=== PATIENT | male | born 1945 | race Caucasian/White ===

== ENCOUNTER 2020-12-02 11:15 | Outpatient (REF) | payer MEDICARE, SELFPAY | END 2020-12-02 11:16 | disposition home or self-care (01) | LOC: HO.LAB 11:15 | PROVIDERS: PCP Internal Medicine; Visit Provider Urology | DX: N39.0 Urinary tract infection, site not specified (principal); E29.1 Testicular hypofunction | CPT/HCPCS: 87086 ==

== ENCOUNTER 2020-12-11 13:48 | Outpatient (REF) | payer MEDICARE, SELFPAY ==
[2020-12-11 14:39] LABS: Appearance Urine HAZY; Color Urine YELLOW; Glucose Urine UA NEG (NEG); Leukocyte Esterase Urine 2+ (NEG); Nitrite Urine NEG (NEG); Specific Gravity - Urine 1.015 (1.005-1.025); Urine Blood TRACE (NEG); Urine Ketones NEG (NEG); Urine Protein NEG (NEG-TRACE)
[2020-12-11 14:47] LABS: Bacteria Urine TRACE /LPF; Squamous Epithelial Cell Urine 1+ /LPF
== END 2020-12-11 13:49 | disposition home or self-care (01) ==
LOC: HO.LAB 13:48
PROVIDERS: PCP Internal Medicine; Visit Provider Urology
DX: N39.0 Urinary tract infection, site not specified (principal); Z13.9 Encounter for screening, unspecified
CPT/HCPCS: 81001; 87086; 87088; 87186

== ENCOUNTER 2021-01-01 16:01 | Outpatient (REF) | payer MEDICARE, SELFPAY ==
[2021-01-01 16:22] LABS: Glucose Urine UA NEG (NEG); Leukocyte Esterase Urine NEG (NEG); Nitrite Urine NEG (NEG); PH 5.5 (5.0-8.0); Urine Blood NEG (NEG); Urine Ketones NEG (NEG); Urine Protein NEG (NEG-TRACE)
[2021-01-01 16:26] LABS: Appearance Urine CLEAR; Color Urine YELLOW
[2021-01-01 16:32] LABS: Bacteria Urine TRACE /LPF; RBC Urine 0 /HPF (0); Squamous Epithelial Cell Urine 1+ /LPF; WBC Urine 0 /HPF (0-4)
== END 2021-01-01 16:02 | disposition home or self-care (01) ==
LOC: HO.LAB 16:01
PROVIDERS: PCP Internal Medicine; Visit Provider Urology
DX: N39.0 Urinary tract infection, site not specified (principal)
CPT/HCPCS: 81001

== ENCOUNTER 2021-01-02 14:23 | Outpatient (REF) | payer MEDICARE, SELFPAY ==
[2021-01-02 15:18] LABS: Hematocrit 40.3 % (42-52); Mean Corpuscular HGB Conc 32.3 g/dl (31.0-36.0); Mean Corpuscular Hemoglobin 28.8 pg (27.0-33.0); Mean Corpuscular Volume 89.4 fL (80-98); Mean Platelet Volume 10.1 fL (9.4-12.4); Platelet Count 183 X10*3/uL (160-400); Red Blood Count 4.51 X10*6/uL (4.60-5.80); White Blood Count 7.2 X10*3/uL (4.8-10.8)
[2021-01-02 16:07] LABS: Prostate Specific Antigen 0.31 ng/mL (<0.05-4.0)
[2021-01-07 15:57] LABS: Testosterone, Total 168 ng/dL (250-1100)
== END 2021-01-02 14:24 | disposition home or self-care (01) ==
LOC: HO.LAB 14:23
PROVIDERS: PCP Internal Medicine; Visit Provider Urology
DX: E29.1 Testicular hypofunction (principal)
CPT/HCPCS: 36415; 84153; 84403; 85027

== ENCOUNTER → 2021-02-27 15:02 | Outpatient (BNVA) | payer MEDICARE, SELFPAY | PROVIDERS: PCP Internal Medicine; Visit Provider Urology | DX: E29.1 Testicular hypofunction (principal); N41.9 Inflammatory disease of prostate, unspecified; N39.0 Urinary tract infection, site not specified | CPT/HCPCS: 99212 ==

== ENCOUNTER → 2021-05-19 10:25 | Outpatient (BNVA) | payer MEDICARE, SELFPAY | PROVIDERS: Visit Provider Orthopaedic Surgery | DX: M75.41 Impingement syndrome of right shoulder (principal) | CPT/HCPCS: 20610; 99212; J1040 ==

== ENCOUNTER 2021-08-06 08:05 | Outpatient (REF) | payer MEDICARE, SELFPAY ==
--- NOTE | ~2021-08-06 | XR_ITS ---
EXAMINATION: XR PELVIS CLINICAL INFORMATION: Left hip pain. COMPARISON: Left hip radiographs dated 12/19/2018. TECHNIQUE: AP view of the pelvis. FINDINGS: Mild right and left hip joint space narrowing with small marginal osteophytes, slightly progressed. No acute fracture or dislocation. No osseous erosion. Degenerative disc disease redemonstrated within the lower lumbar spine. XR/XR pelvis 1-2V IMPRESSION: Mild right and left hip osteoarthritis, slightly progressed.
[2021-08-06 12:55] LABS: Hematocrit 41.8 % (42-52); Hemoglobin 13.5 g/dl (14.0-18.0); Mean Corpuscular HGB Conc 32.3 g/dl (31.0-36.0); Mean Corpuscular Hemoglobin 28.7 pg (27.0-33.0); Mean Corpuscular Volume 88.9 fL (80-98); Mean Platelet Volume 9.9 fL (9.4-12.4); Platelet Count 197 X10*3/uL (160-400); Red Cell Distribution Width 13.1 % (11.0-16.0); White Blood Count 7.1 X10*3/uL (4.8-10.8)
[2021-08-06 14:37] LABS: Prostate Specific Antigen 0.43 ng/mL (<0.05-4.0)
[2021-08-17 11:12] LABS: Testosterone, Total 264 ng/dL (250-1100)
== END 2021-08-06 08:06 | disposition home or self-care (01) ==
LOC: HO.HOSX 08:05
PROVIDERS: Absent Provider Urology; PCP Internal Medicine; Visit Provider Orthopaedic Surgery
DX: Z12.5 Encounter for screening for malignant neoplasm of prostate (principal); M70.62 Trochanteric bursitis, left hip; E29.1 Testicular hypofunction
CPT/HCPCS: 20610; 36415; 72170; 84153; 84403; 85027; 99212; J1100

== ENCOUNTER 2021-08-27 12:09 | Outpatient (REF) | payer MEDICARE, SELFPAY ==
[2021-08-27 12:35] LABS: MANUAL DIFF FLAG NO
[2021-08-27 13:02] LABS: Basophils Percent Auto 0.7 % (0-2); Eosinophils Absolute Auto 0.3 X10*3/uL (0.0-0.4); Eosinophils Percent Auto 4.7 % (0-4); Hemoglobin 13.1 g/dl (14.0-18.0); Imm Gran Abs Auto 0.03 X10*3/uL (0.00-0.03); Imm Gran Pct Auto 0.5 % (0.0-0.4); Lymphocytes Absolute Auto 1.1 X10*3/uL (1.2-4.9); Lymphocytes Percent Auto 18.5 % (20-40); Mean Corpuscular HGB Conc 33.6 g/dl (31.0-36.0); Mean Corpuscular Hemoglobin 29.1 pg (27.0-33.0); Mean Corpuscular Volume 86.7 fL (80-98); Mean Platelet Volume 9.9 fL (9.4-12.4); Monocytes Absolute Auto 0.5 X10*3/uL (0.1-1.2); Monocytes Percent Auto 9.3 % (2-11); Neutrophils Absolute Auto 3.8 X10*3/uL (2.0-8.3); Neutrophils Percent Auto 66.3 % (45-73); Platelet Count 182 X10*3/uL (160-400); White Blood Count 5.7 X10*3/uL (4.8-10.8)
[2021-08-27 13:54] LABS: Prostate Specific Antigen 0.29 ng/mL (<0.05-4.0)
[2021-09-01 08:51] LABS: Testosterone, Total 244 ng/dL (250-1100)
== END 2021-08-27 12:10 | disposition home or self-care (01) ==
LOC: HO.LAB 12:09
PROVIDERS: PCP Internal Medicine; Visit Provider Urology
DX: E29.1 Testicular hypofunction (principal)
CPT/HCPCS: 36415; 84153; 84403; 85025

== ENCOUNTER → 2021-09-01 14:23 | Outpatient (BNVA) | payer MEDICARE, SELFPAY | PROVIDERS: PCP Internal Medicine; Visit Provider Urology | DX: E29.1 Testicular hypofunction (principal); N41.9 Inflammatory disease of prostate, unspecified; N40.1 Benign prostatic hyperplasia with lower urinary tract symptoms; N13.8 Other obstructive and reflux uropathy; N39.0 Urinary tract infection, site not specified | CPT/HCPCS: 99212 ==

== ENCOUNTER 2021-09-09 10:56 | Outpatient (REF) | payer MEDICARE, SELFPAY ==
[2021-09-09 11:48] LABS: Appearance Urine HAZY; Color Urine YELLOW; Glucose Urine UA NEG (NEG); Leukocyte Esterase Urine 2+ (NEG); Nitrite Urine NEG (NEG); Urine Blood TRACE (NEG); Urine Ketones NEG (NEG); Urine Protein NEG (NEG-TRACE)
[2021-09-09 11:56] LABS: WBC Urine TNTC /HPF (0-4)
== END 2021-09-09 10:57 | disposition home or self-care (01) ==
LOC: HO.LAB 10:56
PROVIDERS: PCP Internal Medicine; Visit Provider Urology
DX: N39.0 Urinary tract infection, site not specified (principal)
CPT/HCPCS: 81001; 87086

== ENCOUNTER → 2021-10-02 10:43 | Outpatient (BNVA) | payer MEDICARE, SELFPAY | PROVIDERS: PCP Internal Medicine; Visit Provider Urology | DX: N40.1 Benign prostatic hyperplasia with lower urinary tract symptoms (principal); N13.8 Other obstructive and reflux uropathy; R39.15 Urgency of urination; Z87.898 Personal history of other specified conditions | CPT/HCPCS: 52000; 99212 ==

== ENCOUNTER → 2021-11-10 11:46 | Outpatient (BNVA) | payer MEDICARE, SELFPAY | PROVIDERS: PCP Internal Medicine; Visit Provider Urology | DX: N40.1 Benign prostatic hyperplasia with lower urinary tract symptoms (principal); N13.8 Other obstructive and reflux uropathy; N41.9 Inflammatory disease of prostate, unspecified; R39.15 Urgency of urination | CPT/HCPCS: Q3014 ==

== ENCOUNTER → 2021-12-31 08:52 | Outpatient (BNVA) | payer MEDICARE, SELFPAY | PROVIDERS: PCP Internal Medicine; Visit Provider Orthopaedic Surgery | DX: M70.62 Trochanteric bursitis, left hip (principal) | CPT/HCPCS: 99212 ==

== ENCOUNTER 2022-01-13 13:41 | Outpatient (REF) | payer MEDICARE, SELFPAY ==
[2022-01-13 15:02] LABS: Appearance Urine HAZY; Color Urine YELLOW; Glucose Urine UA NEG (NEG); Leukocyte Esterase Urine TRACE (NEG); Nitrite Urine NEG (NEG); PH 5.5 (5.0-8.0); Specific Gravity - Urine >= 1.030 (1.005-1.025); Urine Blood NEG (NEG); Urine Ketones 5 MG/DL (NEG); Urine Protein TRACE MG/DL (NEG-TRACE)
[2022-01-13 15:16] LABS: Mucus Urine 3+ /LPF; RBC Urine 0-2 /HPF (0); Squamous Epithelial Cell Urine 2+ /LPF
== END 2022-01-13 13:42 | disposition home or self-care (01) ==
LOC: HO.LAB 13:41
PROVIDERS: PCP Internal Medicine; Visit Provider Urology
DX: N39.0 Urinary tract infection, site not specified (principal)
CPT/HCPCS: 81001; 87086

== ENCOUNTER → 2022-01-18 09:35 | Outpatient (BNVA) | payer MEDICARE, SELFPAY | PROVIDERS: PCP Internal Medicine; Visit Provider Urology | DX: Z13.89 Encounter for screening for other disorder (principal) ==

== ENCOUNTER → 2022-01-20 10:32 | Outpatient (BNVA) | payer MEDICARE, SELFPAY | PROVIDERS: PCP Internal Medicine; Visit Provider Urology | DX: Z13.89 Encounter for screening for other disorder (principal) ==

== ENCOUNTER → 2022-02-03 13:18 | Outpatient (BNVA) | payer MEDICARE, SELFPAY | PROVIDERS: PCP Internal Medicine; Visit Provider Urology | DX: E29.1 Testicular hypofunction (principal); N40.1 Benign prostatic hyperplasia with lower urinary tract symptoms; N13.8 Other obstructive and reflux uropathy; N39.0 Urinary tract infection, site not specified | CPT/HCPCS: Q3014 ==

== ENCOUNTER 2022-02-12 07:00 | Outpatient (RCR) | payer MEDICARE, SELFPAY ==
--- NOTE | 2022-02-05 12:50 | MHC.PT.EP ---
[facility] [place] Office [place] Office [place] Office [address] Pankaj Bird [address] [phone] F: [phone] F: [phone] F: [phone] F: [phone] Physical Therapy Plan of Care Date of Evaluation: Date of Surgery: N/A Diagnosis: trochanteric bursitis Assessment: pt's signs and symptoms consistent w/ trochanteric bursitis. pt presents to physical therapy with pain, decreased range of motion, decreased strength, impaired functional mobility, impaired postural awareness, and gait deviations. pt is a good candidate for skilled PT due to age, potential remediation of impairments, typical disease/condition progression and prognosis, comorbidities, and motivation. pt would benefit from tailored strengthening and stretching exercise program, functional training, gait training, postural re-training, neuromuscular re-education, modalities as needed for pain, equipment safety demonstration. Frequency and Duration: The patient will be seen 2x/wk for 6 wks Short Term Goals: pt will be I w/ HEP to promote self-management of condition. pt will demo proper sitting posture w/ lumbar roll to promote neutral spine in sitting. Plastic Frame Inserter Goals: pt will report a statistically significant improvement in self-reported outcome measure, LEFI, to promote return to PLOF. pt will ascend/descend 10 stairs w/ reciprocal pattern using LRAD to promote access to primary living spaces. Treatment Plan: Modalities to reduce pain, spasms and effusion. Manual therapy to restore motion and function. Therapeutic exercise to improve strength and flexibility. Neuromuscular re-education for posture and balance. Therapeutic activities to return to functional activities of daily living. Electronically signed by: Evonne Gallegos PT, DPT Please sign and return to therapist. Thank you for your referral.
--- NOTE | 2022-03-17 13:40 | MHC.PT.DC ---
[facility] [place] Office [place] Office [place] Office [address] 140 [facility] [phone] F: [phone] F: [phone] F: [phone] F: [phone] Physical Therapy Discharge Report Diagnosis: trochanteric bursitis Date of Surgery: N/A Date of Evaluation: 02/05/22 Date of Discharge: 03/17/22 Treatments to Date: 3 Cancellations to Date: 9 No Shows to Date: 1 Discharge Status: Recommend MD Follow-up Discharge Summary: The patient called our office to let us know he was hospitalized but would like to return to physical therapy. It has been approximately one month and the patient has not called to reschedule any further visits. He is discharged from this physical therapy plan of care at this time. He needs clearance from a physician prior to returning to physical therapy. Electronically signed by: Evonne Gallegos PT, DPT Please sign and return to therapist. Thank you for your referral.
== END 2022-03-17 13:40 | disposition home or self-care (01) ==
LOC: HO.PT 07:00
PROVIDERS: Visit Provider Orthopaedic Surgery
DX: M70.62 Trochanteric bursitis, left hip (principal); R26.9 Unspecified abnormalities of gait and mobility
CPT/HCPCS: 97035; 97110; 97140; 97162

== ENCOUNTER 2022-07-29 10:44 | Outpatient (REF) | payer MEDICARE, SELFPAY ==
[2022-07-29 13:43] LABS: Prostate Specific Antigen 0.14 ng/mL (<0.05-4.0)
[2022-08-05 09:32] LABS: Testosterone, Total 216 ng/dL (250-1100)
== END 2022-07-29 10:45 | disposition home or self-care (01) ==
LOC: HO.LAB 10:44
PROVIDERS: PCP Internal Medicine; Visit Provider Urology
DX: Z12.5 Encounter for screening for malignant neoplasm of prostate (principal); E29.1 Testicular hypofunction
CPT/HCPCS: 36415; 84153; 84403

== ENCOUNTER → 2022-08-10 11:24 | Outpatient (BNVA) | payer MEDICARE, SELFPAY | PROVIDERS: PCP Internal Medicine; Visit Provider Urology | DX: N40.1 Benign prostatic hyperplasia with lower urinary tract symptoms (principal); N13.8 Other obstructive and reflux uropathy; N39.0 Urinary tract infection, site not specified; E29.1 Testicular hypofunction | CPT/HCPCS: Q3014 ==

== ENCOUNTER → 2022-10-11 14:29 | Outpatient (BNVA) | payer MEDICARE, SELFPAY | PROVIDERS: PCP Internal Medicine; Visit Provider Orthopaedic Surgery | DX: M70.62 Trochanteric bursitis, left hip (principal); M47.816 Spondylosis without myelopathy or radiculopathy, lumbar region | CPT/HCPCS: 99212 ==

== ENCOUNTER → 2022-11-29 13:52 | Outpatient (BNVA) | payer MEDICARE, SELFPAY | PROVIDERS: PCP Internal Medicine; Visit Provider Anesthesiology | DX: M70.62 Trochanteric bursitis, left hip (principal); M47.816 Spondylosis without myelopathy or radiculopathy, lumbar region; M96.1 Postlaminectomy syndrome, not elsewhere classified; G89.4 Chronic pain syndrome | CPT/HCPCS: 99202 ==

== ENCOUNTER 2022-12-23 10:21 | Outpatient (REF) | payer MEDICARE, SELFPAY ==
--- NOTE | ~2022-12-23 | MR_ITS ---
EXAMINATION: MR LUMBAR SPINE WITHOUT AND WITH CONTRAST CLINICAL INFORMATION: Postlaminectomy syndrome. COMPARISON: Lumbar spine MRI from 03/04/2020. TECHNIQUE: MRI of the lumbar spine was obtained using routine sequences without and following the administration of 10 mL of Gadavist intravenous contrast. FINDINGS: Moderate right convex curvature of the lumbar spine. Mild degenerative retrolistheses of L3 on L4 and L4 on L5. Advanced degenerative disc disease at L4-L5. Moderate degenerative disc disease from L1-L4. Mild degenerative disc disease at L5-S1. Associated mixed Modic type discogenic endplate changes including minimal Modic type I discogenic edema at L2-L3 and L5-S1. No additional suspicious marrow edema. Small Schmorl's nodes at T11-T12, L1-L2, and L2-L3. Otherwise, the vertebral body heights are well-maintained. The conus medullaris terminates at the level of T12-L1. The distal spinal cord is normal in appearance. No abnormal contrast enhancement. Changes of right-sided L5-S1 hemilaminotomy. No additional significant abnormalities of the paraspinal musculature. There is a 1.3 cm T2 hyperintense cysts in the upper pole the right kidney (no follow-up imaging recommended based on current guidelines at the time of examination). Otherwise, limited evaluation of the intra-abdominal structures without significant abnormalities. The abdominal aorta is of normal contour and caliber. AXIAL SPINAL LEVELS: T12-L1: Shallow diffuse disc bulge with superimposed small right subarticular disc protrusion. There is moderate bilateral facet joint arthropathy. There is no neural foraminal stenosis. There is no spinal canal stenosis. L1-L2: Mild diffuse disc bulge with superimposed right foraminal disc protrusion. There is moderate bilateral facet joint arthropathy. There is mild right and no left neural foraminal stenosis. There is stenosis of the right subarticular zone with no overt spinal canal stenosis centrally. L2-L3: Moderate diffuse disc bulge with posterior osseous ridging. There is severe bilateral facet joint arthropathy. There is moderate right and mild left neural foraminal stenosis. There is stenosis of the right worse than left subarticular zones with moderate spinal canal stenosis centrally. L3-L4: Moderate diffuse disc bulge with posterior osseous ridging and superimposed left subarticular disc extrusion with inferior migration. There is severe bilateral facet joint arthropathy. There is severe left and moderate right neural foraminal stenosis. There is severe spinal canal stenosis. L4-L5: Moderate diffuse disc bulge with posterior osseous ridging. There is severe bilateral facet joint arthropathy. There is moderate bilateral neural foraminal stenosis. There is stenosis of the subarticular zones with moderate spinal canal stenosis centrally. L5-S1: Mild diffuse disc bulge. There is severe left and moderate right facet joint arthropathy. There is moderate to severe bilateral neural foraminal stenosis. Posterior decompression. There is narrowing of the subarticular zones with no overt spinal canal stenosis centrally. 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 Most notably, there is severe spinal canal stenosis at L3-L4. Moderate spinal canal stenoses at L2-L3 and L4-L5. Narrowing/stenoses of the subarticular zones from L1-S1. Moderate to severe neural foraminal stenoses from L2-S1. Overall, degenerative changes appear similar to exam from 2020.
== END 2022-12-23 10:22 | disposition home or self-care (01) ==
LOC: HO.MRI 10:21
PROVIDERS: PCP Internal Medicine; Visit Provider Anesthesiology
DX: M96.1 Postlaminectomy syndrome, not elsewhere classified (principal); G89.4 Chronic pain syndrome; M47.816 Spondylosis without myelopathy or radiculopathy, lumbar region
CPT/HCPCS: 72158; A9585

== ENCOUNTER → 2022-12-29 14:32 | Outpatient (BNVA) | payer MEDICARE, SELFPAY | PROVIDERS: PCP Internal Medicine; Visit Provider Anesthesiology | DX: M70.62 Trochanteric bursitis, left hip (principal); M47.816 Spondylosis without myelopathy or radiculopathy, lumbar region; M96.1 Postlaminectomy syndrome, not elsewhere classified; G89.4 Chronic pain syndrome | CPT/HCPCS: 99212 ==

== ENCOUNTER 2023-01-25 13:36 | Outpatient (REF) | payer MEDICARE, SELFPAY ==
[2023-01-25 15:56] LABS: Prostate Specific Antigen 0.14 ng/mL (<0.05-4.0)
[2023-02-03 10:19] LABS: Testosterone, Total 398 ng/dL (250-1100)
== END 2023-01-25 13:37 | disposition home or self-care (01) ==
LOC: HO.LAB 13:36
PROVIDERS: PCP Internal Medicine; Visit Provider Urology
DX: N40.1 Benign prostatic hyperplasia with lower urinary tract symptoms (principal); E29.1 Testicular hypofunction; N13.8 Other obstructive and reflux uropathy; Z12.5 Encounter for screening for malignant neoplasm of prostate
CPT/HCPCS: 36415; 84153; 84403

== ENCOUNTER → 2023-01-31 14:28 | Outpatient (BNVA) | payer MEDICARE, SELFPAY | PROVIDERS: PCP Internal Medicine; Visit Provider Anesthesiology | DX: G89.4 Chronic pain syndrome (principal); M96.1 Postlaminectomy syndrome, not elsewhere classified; M47.816 Spondylosis without myelopathy or radiculopathy, lumbar region; M70.62 Trochanteric bursitis, left hip | CPT/HCPCS: 99212 ==

== ENCOUNTER → 2023-02-08 13:52 | Outpatient (BNVA) | payer MEDICARE, SELFPAY | PROVIDERS: PCP Internal Medicine; Visit Provider Urology | DX: N40.1 Benign prostatic hyperplasia with lower urinary tract symptoms (principal); R39.15 Urgency of urination; N13.8 Other obstructive and reflux uropathy; E29.1 Testicular hypofunction | CPT/HCPCS: 51798; 99212 ==

== ENCOUNTER 2023-03-16 14:21 | Outpatient (REF) | payer MEDICARE, SELFPAY ==
--- NOTE | ~2023-03-16 | XR_ITS ---
EXAMINATION: XR LUMBOSACRAL SPINE CLINICAL INFORMATION: Secondary scoliosis. COMPARISON: Portions of the MRI lumbar spine dated 12/23/2022. TECHNIQUE: AP and lateral views of the lumbar spine and lateral view of the lumbosacral junction. FINDINGS: There is bony demineralization. There is a moderate lumbar levoscoliosis. At L1-L2, there is mild rightward disc space narrowing. At L4-L5, there is moderately severe disc space narrowing, most pronounced leftward. No acute fracture or spondylolisthesis is seen. There is a large Schmorl's node of the L2 lower endplate. There is multi-level lumbar facet arthropathy. There are aortoiliac atherosclerotic calcifications. XR/XR lumbar spine 2-3V IMPRESSION: There is multi-level lumbar degenerative disc disease, spondylosis and facet arthropathy. Degenerative disc disease is most pronounced at L4-L5, where it is moderately severe.
== END 2023-03-16 14:22 | disposition home or self-care (01) ==
LOC: HO.HOSX 14:21
PROVIDERS: PCP Internal Medicine; Visit Provider Neurological Surgery
DX: M47.816 Spondylosis without myelopathy or radiculopathy, lumbar region (principal); M41.50 Other secondary scoliosis, site unspecified
CPT/HCPCS: 72100; 99202

== ENCOUNTER → 2023-04-13 10:25 | Outpatient (BNVA) | payer MEDICARE, SELFPAY | PROVIDERS: PCP Internal Medicine; Visit Provider Neurological Surgery | DX: M41.50 Other secondary scoliosis, site unspecified (principal) | CPT/HCPCS: 99211 ==

== ENCOUNTER 2023-06-02 08:49 | Day surgery (SDC) | payer MEDICARE, SELFPAY ==
--- NOTE | 2023-05-19 | ECG_ITS ---
Test Reason : preop Blood Pressure : / mmHG Vent. Rate : 075 BPM Atrial Rate : 075 BPM P-R Int : 142 ms QRS Dur : 112 ms QT Int : 398 ms P-R-T Axes : 061 049 064 degrees QTc Int : 444 ms Sinus rhythm with Premature atrial complexes Otherwise normal ECG When compared with ECG of 10-JAN-2010 17:31, Premature atrial complexes are now Present Nonspecific T wave abnormality now evident in Lateral leads Referred By: Chica Galdamez Electronically Signed By:Booker Sanchez
[2023-05-19 12:11] VITALS: BP 139/68; PULSE 82; RESP 20; O2SAT 97; BMI 35.0
--- NOTE | 2023-05-19 12:24 | HO.ANESPROP2 ---
HPI - Anesthesia Eval Consult details Narrative: 78yo M for L3-4,L4-5 Jose D Lumbar Lami/Disc/decom Multi CAD follows Dr Valencia. MICHAEL - no CPAP Medically optimized by [facility] preop clinic Stable at PCP visit re: asthma, dm 03/2023 No recent illness No CP/SOB with >4 mets. Limited by back pain, but continues to walk miles, split firewood. [facility] Active Problems Active Problems: All Active Problems (Updated 05/19/23 @ 12:00 by Marilyn Dietrich RN) Prostatitis (Acute) Chronic UTI (urinary tract infection) (Acute) Hypogonadism in male (Acute) Rotator cuff impingement syndrome of right shoulder (Acute) Greater trochanteric bursitis of left hip (Acute) BPH w urinary obs/LUTS (Acute) Urinary urgency (Acute) Gait disorder (Acute) Spondylosis without myelopathy or radiculopathy, lumbar region (Acute) Chronic pain syndrome (Acute) Postlaminectomy syndrome (Acute) Spinal stenosis (Acute) Scoliosis due to degenerative disease of spine in adult patient (Acute) Past Medical History Medical History (Updated 05/19/23 @ 12:00 by Marilyn Dietrich RN) Acute cystitis with hematuria Asthma Benign prostatic hyperplasia with lower urinary tract symptoms CAD (coronary artery disease) Chronic prostatitis Colitis Diabetes Diverticulosis Gross hematuria Hiatal hernia HTN (hypertension) Hypogonadism in male Peripheral neuropathy Poor urinary stream Primary osteoarthritis, left shoulder Rotator cuff impingement syndrome of left shoulder Sleep apnea Family History Family History Father No problems noted. Mother No problems noted. Family history of problems with anesthesia: No Surgical History Surgical History (Updated 05/19/23 @ 12:41 by Marilyn Dietrich RN) H/O colonoscopy History of back surgery History of esophagogastroduodenoscopy (EGD) History of total knee replacement (TKR) Hx of arthroscopy of right knee Hx of shoulder surgery Hx of transurethral resection of prostate History of Problems with Anesthesia: No Social History Social History Are you a primary rental boats caretaker to a significant other at home: No Do you presently have visiting nurse or other home services: No Patient Tobacco Use Status: Former Tobacco user Quit Date: 1989 Tobacco use type: Cigarette Meds Allergies Allergy/AdvReac Type Severity Reaction Status Date / Time morphine Allergy Severe agitation/severe Verified 05/19/23 12:06 skin symptoms oxycodone Allergy Severe agitation/severe Verified 05/19/23 12:06 skin symptoms Home Medications Medication Instructions Recorded Confirmed Last Taken Type albuterol sulfate 90 mcg/actuation 2 puff PO Q6H 02/27/21 05/18/23 06/02/23 History aerosol inhaler blood sugar diagnostic #10 ea 02/27/21 03/16/23 Unknown History montelukast 10 mg tablet 10 mg PO DAILY 02/27/21 05/18/23 Unknown History omeprazole 20 mg capsule,delayed 20 mg PO DAILY 02/27/21 05/18/23 06/02/23 History release diltiazem HCl 300 mg 300 mg PO DAILY 09/01/21 05/18/23 06/02/23 History capsule,extended release 24 hr (Cartia XT) rosuvastatin 5 mg tablet 5 mg PO DAILY 02/03/22 05/18/23 Unknown History dapagliflozin propanediol 5 mg 5 mg PO DAILY 12/29/22 05/19/23 Unknown History tablet (Farxiga) aspirin 81 mg tablet,delayed 81 mg PO DAILY 05/18/23 05/18/23 05/31/23 History release (Ecotrin Low Strength) cetirizine 10 mg tablet 10 mg PO DAILY 05/18/23 05/18/23 Unknown History doxazosin 4 mg tablet 4 mg PO DAILY 05/18/23 05/18/23 06/02/23 History finasteride 5 mg tablet 5 mg PO DAILY 05/18/23 05/18/23 06/02/23 History fluticasone propionate 50 2 spray intranasal QAM 05/18/23 05/18/23 Unknown History mcg/actuation nasal spray,suspension melatonin 10 mg tablet 10 mg PO BEDTIME 05/18/23 05/18/23 Unknown History semaglutide 0.25 mg or 0.5 mg (2 2.5 mg subcut QWEEK 05/18/23 05/19/23 Unknown History mg/3 mL) subcutaneous pen injector (Ozempic) fluticasone fur. 200 mcg-umeclid 1 ea inhalation DAILY PRN acute 05/19/23 05/19/23 Unknown History 62.5 mcg-vilant 25 mcg wheezing inhalat.powder (Trelegy Ellipta) hydrochlorothiazide 25 mg tablet 25 mg PO DAILY 05/23/23 05/23/23 Unknown History Exam Exam Date and Time: May 19, 2023 1224 Height,Weight and Vital Signs: Height 5 ft 9 in Weight 107.501 kg Last Vital Signs Pulse 82 05/19/23 12:11 Resp 20 05/19/23 12:11 BP 139/68 05/19/23 12:11 Pulse Ox 97 05/19/23 12:11 O2 Del Method Room Air 05/19/23 12:11 Pertinent Lab Results Pertinent Lab Results: Lab Results 05/19/23 05/19/23 Range/Units Unknown Unknown WBC 8.7 (4.8-10.8) X10*3/uL RBC 5.35 (4.60-5.80) X10*6/uL Hgb 14.8 (14.0-18.0) g/dl Hct 46.1 (42.0-52.0) % MCV 86.2 (80.0-98.0) fL MCH 27.7 (27.0-33.0) pg MCHC 32.1 (31.0-36.0) g/dl RDW 13.5 (11.0-16.0) % Plt Count 208 (160-400) X10*3/uL MPV 10.4 (9.4-12.4) fL Immature Gran % (Auto) 0.6 H (0.0-0.4) % Neut % (Auto) 67.3 (45-73) % Lymph % (Auto) 20.2 (20-40) % [place] % (Auto) 8.3 (2-11) % Eos % (Auto) 2.9 (0-4) % Baso % (Auto) 0.7 (0-2) % Lymph # (Auto) 1.8 (1.2-4.9) X10*3/uL [place] # (Auto) 0.7 (0.1-1.2) X10*3/uL Eos # (Auto) 0.3 (0.0-0.4) X10*3/uL Baso # (Auto) 0.1 (0.0-0.2) X10*3/uL Abs Immat Gran (auto) 0.05 H (0.00-0.03) X10*3/uL Absolute Neuts (auto) 5.9 (2.0-8.3) x10*3/uL Absolute Nucleated RBC 0.000 (0.0-0.012) X10*3/uL Nucleated RBC % (auto) 0.0 (0.0-0.2) /100WBC Sodium 141 (135-145) mmol/L Potassium 4.2 (3.3-5.1) mmol/L Chloride 105 (96-108) mmol/L Carbon Dioxide 28 (22-29) mmol/L Anion Gap 12 (12-20) BUN 27 H (9-16) mg/dL Creatinine 0.99 (0.5-1.4) mg/dL Estim Creat Clear Calc 76.6 Estimated GFR > 60 Random Glucose 133 H (60-115) mg/dL Calcium 10.0 (8.4-10.2) mg/dL Narrative Narrative: EKG 04/2023 Vent. Rate : 075 BPM ? ? Atrial Rate : 075 BPM ?? P-R Int : 142 ms? QRS Dur : 112 ms ? ? QT Int : 398 ms ? ? ? P-R-T Axes : 061 049 064 degrees ?? QTc Int : 444 ms ? Sinus rhythm with Premature atrial complexes Otherwise normal ECG When compared with ECG of 10-JAN-2010 17:31, Premature atrial complexes are now Present Nonspecific T wave abnormality now evident in Lateral leads Airway Mallampati Class: II TM Dist: >3cm Neck ROM: Full Denture: Upper and Lower Heart: RRR Lungs: CTAB Assessment and Plan Assessment Anesthesia Assessment: Anesthesia Plan Discussed and PAT Visit Final Anesthetic Review Family History of Problems with Anesthesia: No History of Problems with Anesthesia: No
[2023-05-19 13:47] LABS: MANUAL DIFF FLAG NO
[2023-05-19 14:08] LABS: Basophils Absolute Auto 0.1 X10*3/uL (0.0-0.2); Basophils Percent Auto 0.7 % (0-2); Eosinophils Absolute Auto 0.3 X10*3/uL (0.0-0.4); Eosinophils Percent Auto 2.9 % (0-4); Hematocrit 46.1 % (42.0-52.0); Hemoglobin 14.8 g/dl (14.0-18.0); Imm Gran Abs Auto 0.05 X10*3/uL (0.00-0.03); Imm Gran Pct Auto 0.6 % (0.0-0.4); Lymphocytes Absolute Auto 1.8 X10*3/uL (1.2-4.9); Lymphocytes Percent Auto 20.2 % (20-40); Mean Corpuscular HGB Conc 32.1 g/dl (31.0-36.0); Mean Corpuscular Hemoglobin 27.7 pg (27.0-33.0); Mean Corpuscular Volume 86.2 fL (80.0-98.0); Mean Platelet Volume 10.4 fL (9.4-12.4); Monocytes Absolute Auto 0.7 X10*3/uL (0.1-1.2); Monocytes Percent Auto 8.3 % (2-11); Neutrophils Absolute Auto 5.9 x10*3/uL (2.0-8.3); Neutrophils Percent Auto 67.3 % (45-73); Platelet Count 208 X10*3/uL (160-400); Red Blood Count 5.35 X10*6/uL (4.60-5.80); Red Cell Distribution Width 13.5 % (11.0-16.0); White Blood Count 8.7 X10*3/uL (4.8-10.8)
[2023-05-19 14:31] LABS: Anion Gap 12 (12-20); Blood Urea Nitrogen 27 mg/dL (9-16); Carbon Dioxide 28 mmol/L (22-29); Chloride 105 mmol/L (96-108); Creatinine Clr Calc Pharmacy 76.6; Estimated Glomerular Filt Rate > 60; Glucose Random 133 mg/dL (60-115); Potassium 4.2 mmol/L (3.3-5.1); Sodium 141 mmol/L (135-145)
[2023-06-02] VITALS (7 sets, daily range): BP systolic 125–140; BP diastolic 51–62; PULSE 55–70; RESP 15–21; TEMP 36.3–36.6; O2SAT 94–98; BMI 34.3
--- NOTE | ~2023-06-02 | FL_ITS ---
EXAMINATION: XR FLUOROSCOPY WITH IMAGES CLINICAL INFORMATION: L3-L4, L4-L5 luis daniel-lumbar decompression, left. COMPARISON: None available. TECHNIQUE: Fluoroscopy Supervised By: Dr. Delgadillo. Fluoroscopy Time: 0.0 min. Cumulative Dose: 4.87 mGy. DAP: 0.947 Gycm2. Images: 1. FINDINGS: Single lateral view of the lower lumbar spine. Instrument projects over the posterior elements at the L3-L4 disc space level. FL/FL guidance in OR IMPRESSION: Fluoroscopy guidance for lumbar spine surgery.
--- NOTE | 2023-06-02 07:30 | MHC.SHP ---
Pre-Procedural Eval Section A Date of Service: 06/02/23 The patient is an INPATIENT: No The History & Physical has been completed within 30 days and I have reviewed it.: No Section B Chief Complaint: Other secondary scoliosis, site unspecified Allergies: Allergies Allergy/AdvReac Type Severity Reaction Status Date / Time morphine Allergy Severe agitation/severe Verified 05/19/23 12:06 skin symptoms oxycodone Allergy Severe agitation/severe Verified 05/19/23 12:06 skin symptoms Review of Systems Sugical H&P ROS: Negative: Constitution, Cardiovascular, Respiratory, Neurological, Psychiatric, Hem-Onc, Allergic/Immunologic, Gastrointestinal, Genitourinary, Musculoskeletal, Integumentary, Endocrine and Eyes/Ears/Nose/Throat Exam Surgical H&P Exam: Not Evaluated: HEENT, Not Evaluated: Heart, Not Evaluated: Lungs, Not Evaluated: Extremities, Not Evaluated: Abdomen, Not Evaluated: Skin and Not Evaluated: Neurological Plan Diagnosis/Plan: Unchanged I have reviewed the history and physical and performed a pertinent physical examination on my patient. No changes have occurred unless specified. left L3-4 and left L4-5 decompression Time Spent With Patient Time: Total time managing care of this patient today _10___ minutes.
[2023-06-02 09:56] LABS: Glucose, Whole Blood 125 mg/dL (60-115)
[2023-06-02] MEDS: methocarbamoL 750 MG TABLET PO (10:17)
[2023-06-02] MEDS: Gabapentin 300 MG CAPSULE PO (10:17)
[2023-06-02] MEDS: Lactated Ringers 1,000 ML 100 ML IVCONT (10:18)
--- NOTE | 2023-06-02 10:18 | HO.ANESPROP2 ---
[facility] Active Problems Active Problems: All Active Problems (Updated 05/19/23 @ 12:00 by Marilyn Dietrich RN) Prostatitis (Acute) Chronic UTI (urinary tract infection) (Acute) Hypogonadism in male (Acute) Rotator cuff impingement syndrome of right shoulder (Acute) Greater trochanteric bursitis of left hip (Acute) BPH w urinary obs/LUTS (Acute) Urinary urgency (Acute) Gait disorder (Acute) Spondylosis without myelopathy or radiculopathy, lumbar region (Acute) Chronic pain syndrome (Acute) Postlaminectomy syndrome (Acute) Spinal stenosis (Acute) Scoliosis due to degenerative disease of spine in adult patient (Acute) Past Medical History Medical History (Updated 05/19/23 @ 12:00 by Marilyn Dietrich RN) Acute cystitis with hematuria Asthma Benign prostatic hyperplasia with lower urinary tract symptoms CAD (coronary artery disease) Chronic prostatitis Colitis Diabetes Diverticulosis Gross hematuria Hiatal hernia HTN (hypertension) Hypogonadism in male Peripheral neuropathy Poor urinary stream Primary osteoarthritis, left shoulder Rotator cuff impingement syndrome of left shoulder Sleep apnea Family History Family History Father No problems noted. Mother No problems noted. Family history of problems with anesthesia: No Surgical History Surgical History (Updated 05/19/23 @ 12:41 by Marilyn Dietrich RN) H/O colonoscopy History of back surgery History of esophagogastroduodenoscopy (EGD) History of total knee replacement (TKR) Hx of arthroscopy of right knee Hx of shoulder surgery Hx of transurethral resection of prostate History of Problems with Anesthesia: No Social History Social History Are you a primary progressive care manager to a significant other at home: No Do you presently have visiting nurse or other home services: No Patient Tobacco Use Status: Former Tobacco user Quit Date: 1989 Tobacco use type: Cigarette Use of substances other than those prescribed or required for medical reasons: No Have you been hit, kicked, punched, or otherwise hurt by someone within the past year? If so, by whom?: No Are you DNR?: No Advance Directives Information Provided: Yes (as above noted-advised to bring copy day of surgery) Advance Directives on File: No Recently lost weight without trying: No Eating poorly because of decreased appetite: No Nutrition Risks: Surgical patient >75years Poor oral hygiene: No (upper/lower full denture-lower held in w/posts, does not use Fixodent) Meds Allergies Allergy/AdvReac Type Severity Reaction Status Date / Time morphine Allergy Severe agitation/severe Verified 05/19/23 12:06 skin symptoms oxycodone Allergy Severe agitation/severe Verified 05/19/23 12:06 skin symptoms Active Medications: Current Medications Lactated Ringer's (Lr) 1,000 mls @ 100 mls/hr IVCONT .Q10H NARDA Last Admin: 06/02/23 10:18 Dose: 100 mls/hr Home Medications Medication Instructions Recorded Confirmed Last Taken Type albuterol sulfate 90 mcg/actuation 2 puff PO Q6H 02/27/21 05/18/23 06/02/23 History aerosol inhaler blood sugar diagnostic #10 ea 02/27/21 03/16/23 Unknown History montelukast 10 mg tablet 10 mg PO DAILY 02/27/21 05/18/23 Unknown History omeprazole 20 mg capsule,delayed 20 mg PO DAILY 02/27/21 05/18/23 06/02/23 History release diltiazem HCl 300 mg 300 mg PO DAILY 09/01/21 05/18/23 06/02/23 History capsule,extended release 24 hr (Cartia XT) rosuvastatin 5 mg tablet 5 mg PO DAILY 02/03/22 05/18/23 Unknown History dapagliflozin propanediol 5 mg 5 mg PO DAILY 12/29/22 05/19/23 Unknown History tablet (Farxiga) aspirin 81 mg tablet,delayed 81 mg PO DAILY 05/18/23 05/18/23 05/31/23 History release (Ecotrin Low Strength) cetirizine 10 mg tablet 10 mg PO DAILY 05/18/23 05/18/23 Unknown History doxazosin 4 mg tablet 4 mg PO DAILY 05/18/23 05/18/23 06/02/23 History finasteride 5 mg tablet 5 mg PO DAILY 05/18/23 05/18/23 06/02/23 History fluticasone propionate 50 2 spray intranasal QAM 05/18/23 05/18/23 Unknown History mcg/actuation nasal spray,suspension melatonin 10 mg tablet 10 mg PO BEDTIME 05/18/23 05/18/23 Unknown History semaglutide 0.25 mg or 0.5 mg (2 2.5 mg subcut QWEEK 05/18/23 05/19/23 Unknown History mg/3 mL) subcutaneous pen injector (Ozempic) fluticasone fur. 200 mcg-umeclid 1 ea inhalation DAILY PRN acute 05/19/23 05/19/23 Unknown History 62.5 mcg-vilant 25 mcg wheezing inhalat.powder (Trelegy Ellipta) hydrochlorothiazide 25 mg tablet 25 mg PO DAILY 05/23/23 05/23/23 Unknown History Exam Exam Date and Time: June 02, 2023 1018 Height,Weight and Vital Signs: Height 5 ft 9 in Weight 105.233 kg Last Vital Signs Pulse 82 05/19/23 12:11 Resp 20 05/19/23 12:11 BP 139/68 05/19/23 12:11 Pulse Ox 97 05/19/23 12:11 O2 Del Method Room Air 05/19/23 12:11 Pertinent Lab Results Pertinent Lab Results: Laboratory Tests 05/19/23 05/19/23 06/02/23 Unknown Unknown 09:52 WBC 8.7 RBC 5.35 Hgb 14.8 Hct 46.1 MCV 86.2 MCH 27.7 MCHC 32.1 RDW 13.5 Plt Count 208 MPV 10.4 Immature Gran % (Auto) 0.6 H Neut % (Auto) 67.3 Lymph % (Auto) 20.2 [place] % (Auto) 8.3 Eos % (Auto) 2.9 Baso % (Auto) 0.7 Lymph # (Auto) 1.8 [place] # (Auto) 0.7 Eos # (Auto) 0.3 Baso # (Auto) 0.1 Abs Immat Gran (auto) 0.05 H Absolute Neuts (auto) 5.9 Absolute Nucleated RBC 0.000 Nucleated RBC % (auto) 0.0 Sodium 141 Potassium 4.2 Chloride 105 Carbon Dioxide 28 Anion Gap 12 BUN 27 H Creatinine 0.99 Estim Creat Clear Calc 76.6 Estimated GFR > 60 POC Glucose 125 H Random Glucose 133 H Calcium 10.0 Assessment and Plan Assessment Anesthesia Assessment: Anesthesia Plan Discussed and Chart Reviewed Final Anesthetic Review Family History of Problems with Anesthesia: No History of Problems with Anesthesia: No NPO: Yes ASA Class: II Final Preanesthetic Review: No Changes in Pt Med Stat, Meds/Allgs Chart Reviewed, Consent Obtained/Reviewed and Anes Risks/Benef Reviewed Patient Risk: Intermediate Procedure Risk: Intermediate Anesthetic Plan Anesthetic Plan: GA Disposition: Standard PACU
--- NOTE | 2023-06-02 10:48 | P.DS_ITS ---
DS: Providers Provider Date of Service: 06/02/23 Primary care physician: Adeel Fountain MD DS: Summary Time Spent with Patient Time attestation: Total time managing care of this patient today ____ minutes. Discharge coordination time: Less than 30 minutes Quality: Safe Use of Opioids Does Pt have an Active Cancer Diagnosis on the Problem List?: No Quality: Stroke Does the patient have a stroke diagnosis?: No Physical Exam Vital Signs: Vital Signs: Last Vital Signs Pulse 82 05/19/23 12:11 Resp 20 05/19/23 12:11 BP 139/68 05/19/23 12:11 Pulse Ox 97 05/19/23 12:11 O2 Del Method Room Air 05/19/23 12:11 BMI result Body Mass Index 34.3 DS: Data Data Completed and Pending Labs on day of discharge: Laboratory Results - last 24 hr 06/02/23 09:52 POC Glucose 125 H Discharge Plan Discharge Patient Disposition: Home, Self-Care Referrals: Adeel Fountain MD [Primary Care Provider] - 1 Week Discharge Medications: New tramadol 50 mg tablet 50 mg PO Q6H PRN (Reason: pain) Qty: 30 0RF Continued testosterone 20.25 mg/1.25 gram (1.62 %) gel in metered-dose pump 2 pump topical DAILY 28 Days Qty: 75 5RF Rx Instructions: apply 2 pumps total to arms cetirizine 10 mg tablet 10 mg PO DAILY doxazosin 4 mg Tablet 4 mg PO DAILY fluticasone propionate 50 mcg/actuation spray,suspension 2 spray intranasal QAM finasteride 5 mg tablet 5 mg PO DAILY Ozempic 0.25 mg or 0.5 mg (2 mg/3 mL) pen injector 2.5 mg subcut QWEEK melatonin 10 mg Tablet 10 mg PO BEDTIME Trelegy Ellipta 200-62.5-25 mcg blister with device 1 ea inhalation DAILY PRN (Reason: acute wheezing) hydrochlorothiazide 25 mg tablet 25 mg PO DAILY diltiazem HCl [Cartia XT] 300 mg capsule,extended release 24hr 300 mg PO DAILY albuterol sulfate 90 mcg/actuation HFA aerosol inhaler 2 puff PO Q6H (DME) blood sugar diagnostic Strip See Rx Instructions Not Applicable BID Qty: 10 Rx Instructions: As directed montelukast 10 mg tablet 10 mg PO DAILY omeprazole 20 mg capsule,delayed release(DR/EC) 20 mg PO DAILY rosuvastatin 5 mg tablet 5 mg PO DAILY Farxiga 5 mg tablet 5 mg PO DAILY Held aspirin [Ecotrin Low Strength] 81 mg Tablet,Delayed Release (Dr/Ec) 81 mg PO DAILY Hold Instructions: Resume on 06/06/23. Discharge Orders: Discharge Order (Routine); Ordered 06/02/23 Ordered By: Shin Delgadillo Diet: Advance to usual diet Activity on Discharge: As tolerated Activity Restrictions/Additional Instructions: After your spinal surgery we ask you to observe the following restricti ons/guidelines: Activity: It is normal to feel some discomfort as you increase your activity, but that will improve with time. We ask you avoid heavy lifting or acitivities that cause pain. As a general rule, 8lbs is a safe limit for lifting right after surgery. Walk as much as you feel comfortable but not to exhaustion. You will feel extra tired the first few days after surgery. Stay well hydrated. It is OK to walk up and down stairs You may return to driving when you are off narcotics (such as vicodin, oxycodone, dilaudid, etc), and you are back to normal functional capacity. If you have any concerns please check with office before driving. Return to work is specific to each patient and each surgery, so please speak with your doctor/PA at first follow up. Please bring paperwork such as FMLA at that time if you need it filled out. Medications: We will give you a short supply of narcotics after surgery (usually one weeks worth). If you need more please call the office but do not use more than prescribed. You will need to give our office 48 hours notice if you need narcotics refilled and we do not fill narcotics on weekends or evenings. If you are on a narcotic, it is a good idea to take a stool softener such as colace or senna to avoid constipation If you take blood thinner such as aspirin, Plavix, Coumadin, Effient, Eliquis etc for conditions such as Afib, DVT, Pulmonary embolus, coronary disease, stents etc please speak with your surgeon about specific details as to when you can resume these medications. You can resume NSAIDs on post op day 1 (eg: Motrin, Naproxen, etc). Follow up: Please call the office, , after surgery to arrange a 3 week follow up for wound check. Wound Care: You may remove your dressing on the first day after surgery. You may leave open to air. Please do not remove the steri strips underneath. they will fall off on their own in one week. IT IS NORMAL FOR THE WOUND TO OOZE OR BE BLOODY FOR A FEW DAYS AFTER SURGERY. IF THIS HAPPENS JUST PLACE NEW DRESSING OVER IT TO AVOID STAINING CLOTHES. You may shower on post op day # 1 We ask that you do not let the water soak the wound. If it does get wet, just towel dry lightly. Please do not scrub your incision or place any type of chemical/ointment on the wound. No tub baths, pools or jacuzzis for one month. If you have any leaking or redness from your wound, or fevers, please call office
--- NOTE | 2023-06-02 13:29 | P.OP_ITS ---
please ignore this dictation report. Was opened in error and I do not know how to delete this document Operative Note Operative Note Date of Service: 06/02/23
--- NOTE | 2023-06-02 13:33 | W.PM.OPN ---
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 I have explained the nature, purpose and benefits of the operation. I have discussed the risks and benefit of the operation including possible complications or adverse events with patient/family. Alternative(s) were discussed with the patient with their relative benefits and risks as well as the consequences of not accepting the operation were included in obtaining consent. Surgeon: HUMZA WATT MD, PHD Procedure Assisted By: Isak Adams Pac] Description of Procedure patient is suffering left lumbar radiculopathy due to L3-4 and L4-5 spinal stenosis associated with a degenerative scoliosis. He was offered a left-sided L3-4 and L4-5 lumbar decompression.The procedure complications were explained. The patient was consented. The patient was brought to the operating room and endotracheally intubated. The patient was turned in prone position on the Jesus frame. Prep and drape was done followed by timeout. The Physician general surgery physician assistant provided access. A mid lumbar incision was made followed by release of the paravertebral muscle On the left side to expose the L3-4 and L4-5 lamina and facet joints. An intraoperative x-ray was obtained to confirm the correct level. The microscope was brought in. I took over the procedure. The high-speed drill was used to do a L3-4 laminotomy until flavum ligament was reached. a 2. Kerrison was used to expand the laminotomy near flush to the pedicles and to include a partial facetectomy. The flavum and was opened and resected with a 3. Kerrison to decompress the underlying thecal sac. The flavum ligament was removed from the lateral recess to decompress the exiting L4 nerve roots. A long nerve hook could be easily passed along the medial side of the pedicle as a sign of adequate decompression. then attention was turned to the L4-5 level where a similar procedure was done to decompress the left L5 nerve root. Both the L4 and L5 nerve roots were significant compressed due to lateral recess stenosis.The microscope was removed. Hemostasis was done. The physician general surgery physician assistant close the incision in 2 layers. Steri-Strips were used to approximate incision. An OpSite with Tegaderm was used to cover the incision. All sponge needle counts were correct. Patient was extubated and transported in stable is to recovery room. Anesthesia: General Estimated Blood Loss (ml): 50 ml Complications: None Duration of Surgery: Under 60 Minutes Postoperative Plan: Discharge to home
== END 2023-06-02 15:08 | disposition home or self-care (01) ==
PROVIDERS: PCP Internal Medicine; Visit Provider Neurological Surgery
PROC: (CPT 63047; principal; 2023-06-02 11:00)
DX: M48.061 Spinal stenosis, lumbar region without neurogenic claudication (principal); M41.50 Other secondary scoliosis, site unspecified; M48.062 Spinal stenosis, lumbar region with neurogenic claudication; M47.816 Spondylosis without myelopathy or radiculopathy, lumbar region; G89.4 Chronic pain syndrome; M96.1 Postlaminectomy syndrome, not elsewhere classified; I10 Essential (primary) hypertension; E11.9 Type 2 diabetes mellitus without complications; Z79.85 Long-term (current) use of injectable non-insulin antidiabetic drugs; Z79.82 Long term (current) use of aspirin; Z79.51 Long term (current) use of inhaled steroids; Z79.899 Other long term (current) drug therapy; Z88.8 Allergy status to other drugs, medicaments and biological substances; Z87.891 Personal history of nicotine dependence
CPT/HCPCS: 63047; 63048; 36415; 80048; 82947; 85025; 93005; J0131; J0690; J1170; J1885; J2250; J2405; J3010

== ENCOUNTER → 2023-06-02 08:49 | Outpatient (BNV) | payer MEDICARE, SELFPAY | PROVIDERS: PCP Internal Medicine; Visit Provider Neurological Surgery | DX: M48.061 Spinal stenosis, lumbar region without neurogenic claudication (principal) | CPT/HCPCS: 63047; 63048 ==

== ENCOUNTER 2023-06-20 15:59 | Outpatient (REF) | payer MEDICARE, SELFPAY ==
[2023-06-20 18:31] LABS: Appearance Urine Clear; Color Urine Yellow; Glucose Urine UA >=1000 mg/dL (Negative); Leukocyte Esterase Urine Moderate (2+) (Negative); Nitrite Urine Negative (Negative); UMIC TRIGGER UA YES; Urine Blood Negative (Negative); Urine Ketones Negative (Negative); Urine Protein Negative (Neg-Trace)
[2023-06-20 18:37] LABS: Bacteria Urine None Seen (None Seen); Hyaline Casts Urine 0-2 /LPF (0-2); RBC Urine 0-2 /HPF (0-2); Squamous Epithelial Cell Urine 0-2 /HPF (0-2); WBC Urine >50 /HPF (0-5)
== END 2023-06-20 16:00 | disposition home or self-care (01) ==
LOC: HO.LAB 15:59
PROVIDERS: Visit Provider Urology
DX: N39.0 Urinary tract infection, site not specified (principal)
CPT/HCPCS: 81001; 87086

== ENCOUNTER 2023-06-22 15:31 | Outpatient (AMB) | payer MEDICARE, SELFPAY ==
--- NOTE | 2023-06-22 15:51 | HO.SPINEOV ---
Intake Intake Visit Reasons: 1st post op Intake Note: Mr. Haskins is here today for his 1st post op. 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 Unfortunately, the symptoms are unchanged. He was aware that could happen as I think his main problem is a lumbar degenerative scoliosis. We tried to simple decompression to avoid major surgery. He is currently not interested in correcting the scoliosis. He was to be referred to Pain Management for an injection and possible discussion of a spinal cord stimulator. I will refer him to our pain management center. I would like to follow up with him after the injection. Shin Delgadillo MD, PhD Spine Fellowship Trained Neurosurgeon Director, [facility] Orders: Referrals Pain Management Referral M47.816 - Spondylosis without myelopathy or radiculopathy, lumbar region Coding Level of Care Code Global (78867) Diagnoses Spondylosis without myelopathy or radiculopathy, lumbar region M47.816
== END 2023-06-22 15:52 | disposition home or self-care (01) ==
PROVIDERS: PCP Internal Medicine; Visit Provider Neurological Surgery
DX: M47.816 Spondylosis without myelopathy or radiculopathy, lumbar region (principal)
CPT/HCPCS: 99024

== ENCOUNTER → 2023-06-22 15:31 | Outpatient (BNVA) | payer MEDICARE, SELFPAY | PROVIDERS: PCP Internal Medicine; Visit Provider Neurological Surgery ==

== ENCOUNTER 2023-07-11 09:23 | Outpatient (REF) | payer MEDICARE, SELFPAY ==
[2023-07-11 09:57] LABS: Hematocrit 45.1 % (42.0-52.0); Hemoglobin 14.5 g/dl (14.0-18.0); Mean Corpuscular HGB Conc 32.2 g/dl (31.0-36.0); Mean Corpuscular Hemoglobin 27.6 pg (27.0-33.0); Mean Corpuscular Volume 85.9 fL (80.0-98.0); Mean Platelet Volume 9.7 fL (9.4-12.4); Platelet Count 189 X10*3/uL (160-400); Red Blood Count 5.25 X10*6/uL (4.60-5.80); Red Cell Distribution Width 14.2 % (11.0-16.0); White Blood Count 7.4 X10*3/uL (4.8-10.8)
[2023-07-11 10:45] LABS: Prostate Specific Antigen 2.67 ng/mL (<0.05-4.0)
[2023-07-15 16:33] LABS: Testosterone, Total 337 ng/dL (250-1100)
== END 2023-07-11 09:24 | disposition home or self-care (01) ==
LOC: HO.LAB 09:23
PROVIDERS: PCP Internal Medicine; Visit Provider Urology
DX: E29.1 Testicular hypofunction (principal); Z12.5 Encounter for screening for malignant neoplasm of prostate
CPT/HCPCS: 36415; 84153; 84403; 85027

== ENCOUNTER 2023-07-13 09:25 | Outpatient (AMB) | payer MEDICARE, SELFPAY ==
--- NOTE | 2023-07-13 09:43 | A.OFFVIS_ITS ---
Intake Vital Signs 07/13/23 09:49 Height 5 ft 9 in Weight 231 lb BMI 34.1 BP 128/72 Blood Pressure Location Rt brachial Position Sitting Respiration 19 Pulse 81 Pulse Source Pulse Oximeter Pulse Oximetry (%) 97 Oxygen Delivery Method Room Air Intake Visit Reasons: Follow Up/Spondylosis wo myelopathy or radic Intake Note: patient comes in for follow up. Allergies morphine Allergy (Severe, Verified 07/13/23 09:51) agitation/severe skin symptoms oxycodone Allergy (Severe, Verified 07/13/23 09:51) agitation/severe skin symptoms HPI HPI Comments History of Present Illness Details Fabian is a very pleasant 77 years old gentleman who presents in my office with complains in the pain in left hip in the projection of the left trochanter. He was operated on the his lower back by DR. Delgadillo and his back pain is all but gone but the pain in the left thigh continues to bother him. I offered him US guided left trochanteric bursa injection. The patient agreed to go for the procedure. See description as below. Prior:? complains on pain in the left side of his lower back with radiation of the pain into the left lower extremity to the level of the thigh but not below that level as well as tenderness of palpation in projection of the left thigh in the area of the trochanter.? He reports that because of this pain he cannot sleep normally cannot do activities of daily living heating care can take care of himself but he cannot function normally.? He is retired individual.? He reports that he is taking NSAIDs which helped his pain.? He had an MRI about 6 years ago after that surgery.? He had extensive course of physical therapy at [facility].? He reports no improvement of the pain.? He reported injection of the trochanteric bursa in the past which alleviated his pain.. [facility] Medical History (Updated 05/19/23 @ 12:00 by Marilyn Dietrich RN) Acute cystitis with hematuria Asthma Benign prostatic hyperplasia with lower urinary tract symptoms CAD (coronary artery disease) Chronic prostatitis Colitis Diabetes Diverticulosis Gross hematuria Hiatal hernia HTN (hypertension) Hypogonadism in male Peripheral neuropathy Poor urinary stream Primary osteoarthritis, left shoulder Rotator cuff impingement syndrome of left shoulder Sleep apnea Surgical History (Updated 05/19/23 @ 12:41 by Marilyn Dietrich RN) H/O colonoscopy History of back surgery History of esophagogastroduodenoscopy (EGD) History of total knee replacement (TKR) Hx of arthroscopy of right knee Hx of shoulder surgery Hx of transurethral resection of prostate Family History Father No problems noted. Mother No problems noted. Social History Are you a primary critical care unit manager to a significant other at home: No Do you presently have visiting nurse or other home services: No Patient Tobacco Use Status: Former Tobacco user Quit Date: 1989 Tobacco use type: Cigarette Review of Systems Const All systems reviewed & are unremarkable except as noted in HPI and below Physical Exam Vital Signs: Last Vital Signs Pulse 81 07/13/23 09:49 Resp 19 07/13/23 09:49 BP 128/72 07/13/23 09:49 Pulse Ox 97 07/13/23 09:49 Oxygen Delivery Method Room Air 07/13/23 09:49 BMI result Body Mass Index 34.1 Const General: no acute distress and alert Orientation/consciousness: patient oriented x3 Resp Effort & Inspection: normal respiratory effort, able to speak in complete sentences, no audible wheezes, no cough, respiratory effort not decreased and no grunting Cardio Jugular venous distension: no JVD GI Inspection: Yes normal to inspection Back/Spine/Pelvis Other: No tenderness of palpation in paraspinal spinal region. No tenderness in projection of sacroiliac joints. No tenderness on projection of the sciatic nerve point of exiting from the pelvis. Able to stand on bilateral tiptoes in bilateral heels. Demonstrates normal strength of bilateral lower extremities. Easily able to flex forward and flex backwards without difficulty. Reports no pain during this maneuvers. Grzegorz test is negative for pain increase. Reports tenderness of palpation in trochanteric bursa in the projection of left trochanter. Lateral hip rotation medial hip rotation does not cause any pain increase in the groin. No pain increase in the groin. Valsalva maneuver does not aggravate his pain. Neuro General: patient oriented x3 Extrem Other: Left Hip: TTP lateral hip/greater trochanter No groin pain with hip ROM Nl gait Psych Appearance: grossly normal Mental Status: mental status grossly normal Speech and movement: Normal speech and movement present Affect: normal affect Attitude: cooperative Thought process: Normal thought process present Thought content: Normal thought content present Assessment & Plan Assessment & Plan (1) Greater trochanteric bursitis of left hip: Code(s): M70.62 - Trochanteric bursitis, left hip Plan: Most likely the problem of this patient is left trochanteric bursitis.. I performed today trochanteric bursitis injection of the sound guided for him see as below. The follow-up appointment will be scheduled for this patient in 1 month. If he wants to discuss anything and the pain is not relieved by his satisfaction he should give us a call and schedule an appointment earlier.. Majority of his pain is most likely coming from trochanteric bursitis and may be left iliotibial band syndrome. He was operated by Dr. Delgadillo recently and results of the surgery satisfactory (2) Spondylosis without myelopathy or radiculopathy, lumbar region: Code(s): M47.816 - Spondylosis without myelopathy or radiculopathy, lumbar region (3) Chronic pain syndrome: Code(s): G89.4 - Chronic pain syndrome (4) Postlaminectomy syndrome: Code(s): M96.1 - Postlaminectomy syndrome, not elsewhere classified Plan Patient was positioned right lateral decubital on the examination table. The trochanteric area was prepped with ChloraPrep and ultrasound probe was applied. Left greater trochanter was visualized and trochanteric bursa was visualized on the screen. Using 22 gauge 3-1/2 inch spinal needle extra anatomical insertion of the spinal needle was performed and needle advancement was performed under direct ultrasound image. When tip of the needle reached the bursa injection of the mixture of the ropivacaine 0.5% 9 cc mixed with Kenalog 40 mg was performed into the area. Upon completion of the injection needle was withdrawn. Band-Aid was applied. Patient tolerated procedure well. Coding Level of Care Code Est Pt Level 4 (54313) Procedure Only Diagnoses Greater trochanteric bursitis of left hip M70.62 Spondylosis without myelopathy or radiculopathy, lumbar region M47.816 Chronic pain syndrome G89.4 Postlaminectomy syndrome M96.1
[2023-07-13 09:49] VITALS: BP 128/72; PULSE 81; RESP 19; O2SAT 97; BMI 34.1
== END 2023-07-13 10:46 | disposition home or self-care (01) ==
PROVIDERS: PCP Internal Medicine; Visit Provider Anesthesiology
DX: M70.62 Trochanteric bursitis, left hip (principal); M47.816 Spondylosis without myelopathy or radiculopathy, lumbar region; G89.4 Chronic pain syndrome; M96.1 Postlaminectomy syndrome, not elsewhere classified
CPT/HCPCS: 20611

== ENCOUNTER → 2023-07-13 09:25 | Outpatient (BNVA) | payer MEDICARE, SELFPAY | PROVIDERS: PCP Internal Medicine; Visit Provider Anesthesiology | DX: M70.62 Trochanteric bursitis, left hip (principal); M47.816 Spondylosis without myelopathy or radiculopathy, lumbar region; G89.4 Chronic pain syndrome; M96.1 Postlaminectomy syndrome, not elsewhere classified | CPT/HCPCS: 20611; 99212; J2795; J3301 ==

== ENCOUNTER 2023-08-01 15:38 | Outpatient (AMB) | payer MEDICARE, SELFPAY ==
[2023-08-01 16:31] VITALS: BP 140/80; PULSE 78; TEMP 36.6; O2SAT 97; BMI 33.7
--- NOTE | 2023-08-01 16:31 | AM.OFFWIN_ITS ---
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 Intake Note: pt is here for possibe uti Patient Tobacco Use Status: Former Tobacco user Quit Date: 1989 Allergies morphine Allergy (Severe, Verified 08/05/23 16:25) agitation/severe skin symptoms oxycodone Allergy (Severe, Verified 08/05/23 16:25) agitation/severe skin symptoms Medication List - Last Reconciled 08/05/23 by Karlo Villegas MD albuterol sulfate 90 mcg/actuation 2 puffs PO Q6H aspirin (Ecotrin Low Strength) 81 mg PO DAILY blood sugar diagnostic As directed cetirizine 10 mg PO DAILY ciprofloxacin HCl (Cipro) 500 mg PO BID dapagliflozin propanediol (Farxiga) 5 mg PO DAILY diltiazem HCl (Cartia XT) 300 mg PO DAILY doxazosin 4 mg PO DAILY finasteride 5 mg PO DAILY fluticasone propionate 50 mcg/actuation 2 sprays intranasal QAM [id number] 200-62.5-25 mcg (Trelegy Ellipta) 1 ea inhalation DAILY PRN hydrochlorothiazide 25 mg PO DAILY melatonin 10 mg PO BEDTIME montelukast 10 mg PO DAILY omeprazole 20 mg PO DAILY oxybutynin chloride ER 10 mg PO DAILY rosuvastatin 5 mg PO DAILY semaglutide (Ozempic) 2.5 mg subcut QWEEK testosterone 2 pumps topical DAILY 28 days tramadol 50 mg PO Q6H PRN Do you need a note to return to daycare/school/sports/work: No HPI 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 Reports symptoms of increased frequency of urination, burning on urination and discomfort in the suprapubic area. Symptoms started in the past few days. No fevers or chills. No nausea or vomiting. [facility] Medical History (Updated 08/05/23 @ 16:26 by Karlo Villegas MD) Diabetes Peripheral neuropathy Sleep apnea HTN (hypertension) Hiatal hernia Diverticulosis CAD (coronary artery disease) Asthma Colitis Acute cystitis with hematuria Gross hematuria Rotator cuff impingement syndrome of left shoulder Primary osteoarthritis, left shoulder Poor urinary stream Benign prostatic hyperplasia with lower urinary tract symptoms Chronic prostatitis Hypogonadism in male Surgical History (Updated 05/19/23 @ 12:41 by Marilyn Dietrich RN) History of back surgery Hx of transurethral resection of prostate Hx of arthroscopy of right knee Hx of shoulder surgery History of esophagogastroduodenoscopy (EGD) H/O colonoscopy History of total knee replacement (TKR) Family History Father No problems noted. Mother No problems noted. Social History Are you a primary youth care professional to a significant other at home: No Do you presently have visiting nurse or other home services: No Patient Tobacco Use Status: Former Tobacco user Quit Date: 1989 Tobacco use type: Cigarette Physical Exam Vital Signs: Last Vital Signs Temp 97.8 F 08/01/23 16:31 Pulse 78 08/01/23 16:31 BP 140/80 H 08/01/23 16:31 Pulse Ox 97 08/01/23 16:31 BMI result Body Mass Index 33.7 Const General: cooperative and healthy appearing Nutritional Appearance: well nourished Orientation/consciousness: patient oriented x3 Limitations: no limitations HEENT Head: Yes normal to inspection Eyes General: appearance normal, both eyes and all related structures Neck Neck: Yes normal visual inspection Chest Chest palpation & inspection: normal palpation of entire chest wall Resp Effort & Inspection: normal respiratory effort General: Yes no CVA tenderness Back/Spine/Pelvis Back: no CVA tenderness Neuro General: patient oriented x3 Results AMB Urinalysis, Automated UA Leukoctes 125 Filippo/uL Last Edit by Rodrick Lawler CMA on 08/01/23 16:3 6 UA Nitrite Negative Last Edit by Rodrick Lawler CMA on 08/01/23 16:36 UA Urobilinogen 0.2 mg/dL Last Edit by Rodrick Lawler CMA on 08/01/23 16 :36 UA Protein 15 mg/dL Last Edit by Rodrick Lawler CMA on 08/01/23 16:36 UA pH 6.0 Last Edit by Rodrick Lawler CMA on 08/01/23 16:36 UA Blood 0 Jarred/uL Last Edit by Rodrick Lawler CMA on 08/01/23 16:36 UA Specific [place] 1.025 Last Edit by Rodrick Lawler CMA on 08/01/23 16:36 UA Ketone Negative Last Edit by Rodrick Lawler CMA on 08/01/23 16:36 UA Bilirubin 0 mg/dL Last Edit by Rodrick Lawler CMA on 08/01/23 16:36 UA Glucose 0 mg/dL Last Edit by Rodrick Lawler CMA on 08/01/23 16:36 Results Reviewed Results Reviewed: Laboratory Last Values Urine pH (Auto) 6.0 08/01/23 16:35 Specific [place] (Auto) 1.025 08/01/23 16:35 Urine Protein (Auto) 15 mg/dL 08/01/23 16:35 Glucose (UA)(Auto) 0 mg/dL 08/01/23 16:35 Urine Ketones (Auto) Negative 08/01/23 16:35 Urine Blood (Auto) 0 Jarred/uL 08/01/23 16:35 Urine Nitrite (Auto) Negative 08/01/23 16:35 Urine Bilirubin (Auto) 0 mg/dL 08/01/23 16:35 Urine Urobilinogen (Auto) 0.2 mg/dL 08/01/23 16:35 Leukocyte Esterase (Auto) 125 Filippo/uL 08/01/23 16:35 Assessment & Plan Assessment & Plan (1) Prostatitis: Code(s): N41.9 - Inflammatory disease of prostate, unspecified Qualifiers: Prostatitis type: acute Qualified Code(s): N41.0 - Acute prostatitis Plan Antibiotics called in. Patient was advised to follow-up with the primary care provider. He would need a serum PSA checked. Orders: Orders AMB Urinalysis Automated 08/01/23 Z13.9 - Encounter for screening, unspecified Medications: New ciprofloxacin HCl (Cipro) 500 mg PO BID 14 tabs 0RF Coding Level of Care Code Est Pt Level 3 (68898) Diagnoses Acute prostatitis N41.0 Prostatitis type: acute
== END 2023-08-01 17:15 | disposition home or self-care (01) ==
PROVIDERS: PCP Internal Medicine; Visit Provider Internal Medicine
DX: R35.0 Frequency of micturition (principal)
CPT/HCPCS: 81003; 99213

== ENCOUNTER 2023-08-22 08:41 | Outpatient (AMB) | payer MEDICARE, SELFPAY ==
--- NOTE | 2023-08-22 08:42 | MHC.OFFVIS ---
Intake Vital Signs 08/22/23 08:47 Height 5 ft 9 in Weight 233 lb 4 oz BMI 34.4 BP 150/80 H Blood Pressure Location Rt brachial Position Sitting Respiration 16 Pulse 83 Pulse Source Pulse Oximeter Pulse Oximetry (%) 96 Oxygen Delivery Method Room Air Intake Visit Reasons: 4 Week Follow Up/Confirmed Intake Note: patient comes in for 4 weeks follow up. Allergies morphine Allergy (Severe, Verified 08/22/23 08:47) agitation/severe skin symptoms oxycodone Allergy (Severe, Verified 08/22/23 08:47) agitation/severe skin symptoms HPI HPI Comments History of Present Illness Details Fabian is back in my office after the trochanteric bursa steroid injection. He reports excellent pain relief in the bursa and the left thigh. He reports minor pain in the right ankle. I recommended him to see a ambulance driver. He reports that he feels excessive thirst and he is asking me whether not it can be a result of the injection. He is diabetic. He measures his blood sugar every morning it is 120 for 125 mg per mL, although it is only mildly elevated it is sugar NPO. I explained to him that the variation of the level of the sugar in the blood could be significant contribution to blood sugar. The peak of steroids usually occur at 11:00. On top of that he has injected steroids in his body for 21 days after the procedure. I recommended him to go to his doctor who manages his sugar and request to perform hemoglobin A1c. Prior: very pleasant 77 years old gentleman who presents in my office with complains in the pain in left hip in the projection of the left trochanter. He was operated on the his lower back by DR. Delgadillo and his back pain is all but gone but the pain in the left thigh continues to bother him. I offered him US guided left trochanteric bursa injection. The patient agreed to go for the procedure. See description as below. Prior:? complains on pain in the left side of his lower back with radiation of the pain into the left lower extremity to the level of the thigh but not below that level as well as tenderness of palpation in projection of the left thigh in the area of the trochanter.? He reports that because of this pain he cannot sleep normally cannot do activities of daily living heating care can take care of himself but he cannot function normally.? He is retired individual.? He reports that he is taking NSAIDs which helped his pain.? He had an MRI about 6 years ago after that surgery.? He had extensive course of physical therapy at [facility].? He reports no improvement of the pain.? He reported injection of the trochanteric bursa in the past which alleviated his pain.. REPLACED BY [facility] Medical History (Updated 08/22/23 @ 09:07 by Martin Anderson MD) Diabetes Peripheral neuropathy Sleep apnea HTN (hypertension) Hiatal hernia Diverticulosis CAD (coronary artery disease) Asthma Colitis Acute cystitis with hematuria Gross hematuria Rotator cuff impingement syndrome of left shoulder Primary osteoarthritis, left shoulder Poor urinary stream Benign prostatic hyperplasia with lower urinary tract symptoms Chronic prostatitis Hypogonadism in male Surgical History (Updated 05/19/23 @ 12:41 by Marilyn Dietrich RN) History of back surgery Hx of transurethral resection of prostate Hx of arthroscopy of right knee Hx of shoulder surgery History of esophagogastroduodenoscopy (EGD) H/O colonoscopy History of total knee replacement (TKR) Family History Father No problems noted. Mother No problems noted. Social History Are you a primary rn progressive care unit to a significant other at home: No Do you presently have visiting nurse or other home services: No Patient Tobacco Use Status: Former Tobacco user Quit Date: 1989 Tobacco use type: Cigarette Review of Systems Const All systems reviewed & are unremarkable except as noted in HPI and below Physical Exam Const General: no acute distress and alert Orientation/consciousness: patient oriented x3 Resp Effort & Inspection: normal respiratory effort, able to speak in complete sentences, no audible wheezes, no cough, respiratory effort not decreased and no grunting Cardio Jugular venous distension: no JVD GI Inspection: Yes normal to inspection Back/Spine/Pelvis Other: No tenderness of palpation in paraspinal spinal region. No tenderness in projection of sacroiliac joints. No tenderness on projection of the sciatic nerve point of exiting from the pelvis. Able to stand on bilateral tiptoes in bilateral heels. Demonstrates normal strength of bilateral lower extremities. Easily able to flex forward and flex backwards without difficulty. Reports no pain during this maneuvers. Grzegorz test is negative for pain increase. Reports tenderness of palpation in trochanteric bursa in the projection of left trochanter. Lateral hip rotation medial hip rotation does not cause any pain increase in the groin. No pain increase in the groin. Valsalva maneuver does not aggravate his pain. Neuro General: patient oriented x3 Extrem Other: Left Hip: TTP lateral hip/greater trochanter No groin pain with hip ROM Nl gait Psych Appearance: grossly normal Mental Status: mental status grossly normal Speech and movement: Normal speech and movement present Affect: normal affect Attitude: cooperative Thought process: Normal thought process present Thought content: Normal thought content present Assessment & Plan Assessment & Plan (1) Greater trochanteric bursitis of left hip: Code(s): M70.62 - Trochanteric bursitis, left hip Plan: Left trochanteric steroid injection resulted in good effect on pain. He reports his pain to out of 10. Discussion as above. He might need some additional medication to adjust his blood sugar. He is diabetic. He will visit his primary care provider. If he wants to continue those injections it can be done once in 3 months although I prefer that it will be less frequent. Majority of his pain is most likely coming from trochanteric bursitis and may be left iliotibial band syndrome. He was operated by Dr. Delgadillo recently and results of the surgery satisfactory (2) Spondylosis without myelopathy or radiculopathy, lumbar region: Code(s): M47.816 - Spondylosis without myelopathy or radiculopathy, lumbar region (3) Chronic pain syndrome: Code(s): G89.4 - Chronic pain syndrome (4) Postlaminectomy syndrome: Code(s): M96.1 - Postlaminectomy syndrome, not elsewhere classified (5) Diabetes mellitus case management patient: Code(s): E11.9 - Type 2 diabetes mellitus without complications Coding Level of Care Code Est Pt Level 4 (99402) Diagnoses Greater trochanteric bursitis of left hip M70.62 Spondylosis without myelopathy or radiculopathy, lumbar region M47.816 Chronic pain syndrome G89.4 Postlaminectomy syndrome M96.1 Diabetes mellitus case management patient E11.9
[2023-08-22 08:47] VITALS: BP 150/80; PULSE 83; RESP 16; O2SAT 96; BMI 34.4
== END 2023-08-22 09:27 | disposition home or self-care (01) ==
PROVIDERS: PCP Internal Medicine; Visit Provider Anesthesiology
DX: M70.62 Trochanteric bursitis, left hip (principal); M47.816 Spondylosis without myelopathy or radiculopathy, lumbar region; G89.4 Chronic pain syndrome; M96.1 Postlaminectomy syndrome, not elsewhere classified; E11.9 Type 2 diabetes mellitus without complications
CPT/HCPCS: 99214

== ENCOUNTER → 2023-08-22 08:41 | Outpatient (BNVA) | payer MEDICARE, SELFPAY | PROVIDERS: PCP Internal Medicine; Visit Provider Anesthesiology | DX: M70.62 Trochanteric bursitis, left hip (principal); M47.816 Spondylosis without myelopathy or radiculopathy, lumbar region; M96.1 Postlaminectomy syndrome, not elsewhere classified; G89.4 Chronic pain syndrome; E11.9 Type 2 diabetes mellitus without complications | CPT/HCPCS: 99212 ==

== ENCOUNTER 2023-08-30 14:35 | Outpatient (AMB) | payer MEDICARE, SELFPAY ==
--- NOTE | 2023-08-30 15:56 | MHC.OFFWIV ---
Intake Vital Signs 08/30/23 16:01 Height 5 ft 9 in Weight 233 lb BMI 34.4 BP 142/80 H Blood Pressure Location Lt brachial Position Sitting Pulse 82 Pulse Source Pulse Oximeter Temp 98.4 F Temp Source Temporal Artery Scan Pulse Oximetry (%) 98 Intake Visit Reasons: EP ?UTI Intake Note: pt is here for c/o uti Patient Tobacco Use Status: Former Tobacco user Quit Date: 1989 Allergies morphine Allergy (Severe, Verified 08/30/23 15:58) agitation/severe skin symptoms oxycodone Allergy (Severe, Verified 08/30/23 15:58) agitation/severe skin symptoms Do you need a note to return to daycare/school/sports/work: Yes HPI EP ?UTI HPI Details 78-year-old male presents to the office for a sick visit. He is reporting increased frequency of urination. Symptoms started yesterday. Also reporting symptoms of burning. [facility] Medical History (Updated 08/22/23 @ 09:07 by Martin Anderson MD) Diabetes Peripheral neuropathy Sleep apnea HTN (hypertension) Hiatal hernia Diverticulosis CAD (coronary artery disease) Asthma Colitis Acute cystitis with hematuria Gross hematuria Rotator cuff impingement syndrome of left shoulder Primary osteoarthritis, left shoulder Poor urinary stream Benign prostatic hyperplasia with lower urinary tract symptoms Chronic prostatitis Hypogonadism in male Surgical History (Updated 05/19/23 @ 12:41 by Marilyn Dietrich RN) History of back surgery Hx of transurethral resection of prostate Hx of arthroscopy of right knee Hx of shoulder surgery History of esophagogastroduodenoscopy (EGD) H/O colonoscopy History of total knee replacement (TKR) Family History Father No problems noted. Mother No problems noted. Social History Are you a primary medicare sales representative to a significant other at home: No Do you presently have visiting nurse or other home services: No Patient Tobacco Use Status: Former Tobacco user Quit Date: 1989 Tobacco use type: Cigarette Physical Exam Vital Signs: Last Vital Signs Temp 98.4 F 08/30/23 16:01 Pulse 82 08/30/23 16:01 BP 142/80 H 08/30/23 16:01 Pulse Ox 98 08/30/23 16:01 BMI result Body Mass Index 34.4 Const General: cooperative and healthy appearing Nutritional Appearance: well nourished Orientation/consciousness: patient oriented x3 Limitations: no limitations HEENT Head: Yes normal to inspection Eyes General: appearance normal, both eyes and all related structures Neck Neck: Yes normal visual inspection Chest Chest palpation & inspection: normal palpation of entire chest wall Resp Effort & Inspection: normal respiratory effort Neuro General: patient oriented x3 Results AMB Urinalysis, Automated UA Leukoctes 125 Filippo/uL Last Edit by Rodrick Lawler CMA on 08/30/23 16:11 UA Nitrite Negative Last Edit by Rodrick Lawler CMA on 08/30/23 16:11 UA Urobilinogen 0.2 mg/dL Last Edit by Rodrick Lawler CMA on 08/30/23 16:11 UA Protein 15 mg/dL Last Edit by Rodrick Lawler CMA on 08/30/23 16:11 UA pH 6.0 Last Edit by Rodrick Lawler CMA on 08/30/23 16:11 UA Blood 0 Jarred/uL Last Edit by Rodrick Lawler CMA on 08/30/23 16:11 UA Specific [place] 1.015 Last Edit by Rodrick Lawler CMA on 08/30/23 16:11 UA Ketone Negative Last Edit by Rodrick Lalwer CMA on 08/30/23 16:11 UA Bilirubin 0 mg/dL Last Edit by Rodrick Lawler CMA on 08/30/23 16:11 UA Glucose 1000 mg/dL Last Edit by Rodrick Lawler CMA on 08/30/23 16:11 AMB Random Glucose (hemocue) AMB Random Glucose (hemocue) 153 mg/dL Last Edit by Rodrick Lawler CMA on 08/30/23 16:16 Results Reviewed Results Reviewed: Laboratory Last Values Random Glu (Clinic) 153 mg/dL 08/30/23 16:15 Urine pH (Auto) 6.0 08/30/23 16:10 Specific [place] (Auto) 1.015 08/30/23 16:10 Urine Protein (Auto) 15 mg/dL 08/30/23 16:10 Glucose (UA)(Auto) 1000 mg/dL 08/30/23 16:10 Urine Ketones (Auto) Negative 08/30/23 16:10 Urine Blood (Auto) 0 Jarred/uL 08/30/23 16:10 Urine Nitrite (Auto) Negative 08/30/23 16:10 Urine Bilirubin (Auto) 0 mg/dL 08/30/23 16:10 Urine Urobilinogen (Auto) 0.2 mg/dL 08/30/23 16:10 Leukocyte Esterase (Auto) 125 Filippo/uL 08/30/23 16:10 Assessment & Plan Assessment & Plan (1) Chronic UTI (urinary tract infection): Code(s): N39.0 - Urinary tract infection, site not specified Plan: I stressed the importance of seeing his primary care and urologist again. His urine has significant sugar in it and his diabetes medications need to be adjusted. Orders: Orders AMB Urinalysis Automated Today Z13.9 - Encounter for screening, unspecified AMB Random Glucose (hemocue) Today Z13.9 - Encounter for screening, unspecified Coding Level of Care Code Est Pt Level 3 (17523) Diagnoses Chronic UTI (urinary tract infection) N39.0
[2023-08-30 16:01] VITALS: BP 142/80; PULSE 82; TEMP 36.9; O2SAT 98; BMI 34.4
== END 2023-08-30 16:55 | disposition home or self-care (01) ==
LOC: HO.HMGWI 14:35
PROVIDERS: PCP Internal Medicine
DX: Z13.9 Encounter for screening, unspecified (principal); N39.0 Urinary tract infection, site not specified
CPT/HCPCS: 81003; 82948; 99213

== ENCOUNTER 2023-09-30 13:43 | Outpatient (REF) | payer MEDICARE, SELFPAY | END 2023-09-30 13:44 | disposition home or self-care (01) | LOC: HO.LNP 13:43 | PROVIDERS: PCP Internal Medicine; Visit Provider Nurse Practitioner Family | DX: N39.0 Urinary tract infection, site not specified (principal); N40.1 Benign prostatic hyperplasia with lower urinary tract symptoms; E29.1 Testicular hypofunction; R21 Rash and other nonspecific skin eruption; R39.15 Urgency of urination | CPT/HCPCS: 51798; 81003; 87086; 87088; 87186; 99212 ==

== ENCOUNTER 2023-09-30 13:43 | Outpatient (AMB) | payer MEDICARE, SELFPAY ==
--- NOTE | 2023-09-30 13:50 | MHC.OFFVIS ---
Intake Intake Visit Reasons: follow up/penile rash Intake Note: Patient is present for follow up penile rash Urology Med: Doxazosin, Finasteride, Oxybutynin, testosterone Antibiotic Allergy: None Blood Thinner: None PVR: 0ml's Parts Puller Required: No Accompanied by: Self / Same As Patient Allergies morphine Allergy (Severe, Verified 10/02/23 22:33) agitation/severe skin symptoms oxycodone Allergy (Severe, Verified 10/02/23 22:33) agitation/severe skin symptoms Medication List - Last Reconciled 10/02/23 by IZA Dennis- albuterol sulfate 90 mcg/actuation 2 puffs PO Q6H aspirin (Ecotrin Low Strength) 81 mg PO DAILY blood sugar diagnostic As directed cetirizine 10 mg PO DAILY clotrimazole-betamethasone 1-0.05 % 1 appl topical BID 4 weeks dapagliflozin propanediol (Farxiga) 5 mg PO DAILY diltiazem HCl (Cartia XT) 300 mg PO DAILY doxazosin 4 mg PO DAILY finasteride 5 mg PO DAILY fluticasone propionate 50 mcg/actuation 2 sprays intranasal QAM dianssadpqi-yyruuwdoa-uviebztu 200-62.5-25 mcg (Trelegy Ellipta) 1 ea inhalation DAILY PRN hydrochlorothiazide 25 mg PO DAILY melatonin 10 mg PO BEDTIME montelukast 10 mg PO DAILY nitrofurantoin macrocrystal 100 mg PO BID 10 days omeprazole 20 mg PO DAILY oxybutynin chloride ER 10 mg PO DAILY 30 days rosuvastatin 5 mg PO DAILY semaglutide (Ozempic) 2.5 mg subcut QWEEK testosterone 2 pumps topical DAILY 28 days tramadol 50 mg PO Q6H PRN HPI HPI Comments History of Present Illness Details Fabian is a very pleasant 78-year-old male patient of Dr Fountain. He has a past medical history of diabetes, peripheral neuropathy, sleep apnea, hypertension, hiatal hernia, diverticulosis, coronary artery disease, asthma, colitis, osteoarthritis, chronic prostatitis, and hypogonadism. He presents to the office today for a follow-up of his hypogonadism, prostatitis, and lower urinary tract symptoms. In discussion with the patient today he reports noting dysuria, urinary urgency, and urinary frequency for the last 1-2 weeks. He also reports having a penile rash that has been present for approximately 1 month. In assessment of the patient today penis is uncircumcised upon retraction of foreskin penile gland appears reddened with two dime sized areas of blotchiness otherwise no drainage, lesions, and or open areas noted. Discussed possible balanitis in the setting of type 2 diabetes and SGLT-2 inhibitors. When asked patient reports compliance with testosterone therapy, doxazosin, and finasteride daily. Recent labs reviewed with the patient today testosterone 337 and PSA 2.7. He otherwise denies hematuria, foul smelling urine, changes to urinary stream, flank pain, fever, and or chills. In office urinalysis with 1+ leukocytes. PVR 0 mL. Discussed at length potential causes for lower urinary tract symptoms patient is experiencing. Discussed possible UTI versus prostatitis. He otherwise offers no other issues or concerns at this time. Lower Urinary Tract Symptoms:??Predominant urgency Has OAB dry symptoms ?Current visit is for further evaluation of, lower urinary tract symptoms, predominate obstructive symptoms.?Current treatment includes medication, alpha shauna, tamsulosin.?Prior treatments include procedure.?Prostate Symptom Score 5/18 , Moderate (9-19), Bother 2.?Symptoms include / , incomplete emptying, weak stream, and are stable.?Results from testing include? Cystoscopy 07/11 - no abnormality seen 05/09 TUR defect. Does have dnwx-er-kibrcshc trabeculation. Prostatitis/CPPS: Had 2 occurrences Remain stable with high potency cranberry They present for evaluation of, chronic prostatitis. He is currently being treated with antibiotics, fluroquinolone. Current symptoms include nocturia Yes incomplete emptying No frequency Yes Symptoms have been present on and off for many years. Laboratory testing included 12/08 [facility] - E.Coli [place] sensitive. Testing included 07/07 RBUS - good emptying, prostate 25 gm 05/09 RBUS - bilateral renal cysts but no stone. 02/09 E coli and Enterococcus Augmentin and fosfomycin sensitive - Bactrim and ciprofloxacin resistant Hypogonadism: Reivewed labs Feeling good with testosterone cream on testicles. He presents today for review lab work - wants testosterone cream renewal - E prescribed down to [place] will try scrotal application. Initial symptoms include erectile dysfunction Yes decreased libido Yes change in mood/depression Yes in muscle size/strength Yes increased fatigue/malaise Yes increased abdominal fat No tender breasts/gynecomastia No hair loss No osteopenia No The onset of symptoms has been gradual. Laboratory results 12/08 , testosterone 649, PSA 0.85 07/08 Aveed - PSA 0.85, T 229 12/09 T 217 PSA 0.7 02/06 T 686 05/09 T 170 12/10 PSA 0.4 T 200, 06/09 T 279 PSA 0.15, 09/10 T 244 PSA 0.15, 05/12 T 215 PSA 0.14, 02/10 T 398 P 0.14, 07/13 T 337 P 2.7 Current therapy includes gel/cream exogenous testosterone. Response to therapy has been improved. Therapeutic plan Continue therapy. [facility] Medical History Diabetes Peripheral neuropathy Sleep apnea HTN (hypertension) Hiatal hernia Diverticulosis CAD (coronary artery disease) Asthma Colitis Acute cystitis with hematuria Gross hematuria Rotator cuff impingement syndrome of left shoulder Primary osteoarthritis, left shoulder Poor urinary stream Benign prostatic hyperplasia with lower urinary tract symptoms Chronic prostatitis Hypogonadism in male Surgical History History of back surgery Hx of transurethral resection of prostate Hx of arthroscopy of right knee Hx of shoulder surgery History of esophagogastroduodenoscopy (EGD) H/O colonoscopy History of total knee replacement (TKR) Family History Father No problems noted. Mother No problems noted. Social History Are you a primary residential caregiver to a significant other at home: No Do you presently have visiting nurse or other home services: No Patient Tobacco Use Status: Former Tobacco user Quit Date: 1989 Tobacco use type: Cigarette Review of Systems Const Reports as per HPI Eyes Reports no additional complaints ENT Reports no additional complaints Card Reports as per HPI Resp Reports as per HPI GI Reports as per HPI Reports as per HPI Musc Reports as per HPI Neuro Reports no additional complaints Psych Reports no additional complaints Endo Reports as per HPI Physical Exam Const General: cooperative, comfortable, no acute distress, well developed, alert and awake Orientation/consciousness: patient oriented x3 HEENT Head: Yes normal to inspection, Yes normocephalic and Yes atraumatic Ears: hearing grossly normal bilaterally Eyes General: appearance normal, both eyes and all related structures Neck Neck: Yes normal visual inspection and Yes trachea midline Chest Chest palpation & inspection: normal inspection of the chest Resp Effort & Inspection: normal respiratory effort and able to speak in complete sentences Cardio Rate: regular rate GI Inspection: Yes normal to inspection General: Yes no CVA tenderness Male General Exam: Yes normal external exam Penis: uncircumcised, erythematous and other (as noted in HPI) Meatus: meatus normal Scrotum: scrotum normal Testes: Testes normal Back/Spine/Pelvis Back: no CVA tenderness Skin General skin exam: no rashes or lesions noted Neuro General: patient oriented x3 Extrem General: Yes normal to inspection Psych Appearance: grossly normal and well kempt Mental Status: mental status grossly normal Speech and movement: Normal speech and movement present and Clear speech present Affect: normal affect Attitude: cooperative Thought process: Normal thought process present Thought content: Normal thought content present Insight: Fair insight present (Psych) Judgement: Fair judgement present (Psych) Office Procedures Post Void Residual Post Residual Void Post Void Residual (PVR): 0 [id number] Void Residual by ultrasound Results AMB Urinalysis, Automated UA Leukoctes 70 Filippo/uL Last Edit by [email or web address] Araujo on 09/30/23 14:22 UA Nitrite Negative Last Edit by [employer] on 09/30/23 14:22 UA Urobilinogen 0.2 mg/dL Last Edit by Cheryl Araujo on 09/30/23 14:22 UA Protein 15 mg/dL Last Edit by [employer] Hamida[employer]terra ([employer]) on 09/30/23 14:22 UA pH 6.0 Last Edit by [employer] HamidaSegterra ([employer]) on 09/30/23 14:22 UA Blood 10 Jarred/uL Last Edit by [email or web address] Araujo on 09/30/23 14:22 UA Specific [place] 1.015 Last Edit by [employer] Van on 09/30/23 14:22 UA Ketone Negative Last Edit by [employer] Van on 09/30/23 14:22 UA Bilirubin 0 mg/dL Last Edit by Cheryl Araujo on 09/30/23 14:22 UA Glucose 1000 mg/dL Last Edit by Cheryl Araujo on 09/30/23 14:22 Results Reviewed Results Reviewed: Laboratory Last Values Urine pH (Auto) 6.0 09/30/23 13:53 Specific [place] (Auto) 1.015 09/30/23 13:53 Urine Protein (Auto) 15 mg/dL 09/30/23 13:53 Glucose (UA)(Auto) 1000 mg/dL 09/30/23 13:53 Urine Ketones (Auto) Negative 09/30/23 13:53 Urine Blood (Auto) 10 Jarred/uL 09/30/23 13:53 Urine Nitrite (Auto) Negative 09/30/23 13:53 Urine Bilirubin (Auto) 0 mg/dL 09/30/23 13:53 Urine Urobilinogen (Auto) 0.2 mg/dL 09/30/23 13:53 Leukocyte Esterase (Auto) 70 Filippo/uL 09/30/23 13:53 Assessment & Plan Assessment & Plan (1) Prostatitis: Code(s): N41.9 - Inflammatory disease of prostate, unspecified Qualifiers: Prostatitis type: acute Qualified Code(s): N41.0 - Acute prostatitis (2) Urinary tract infection: Code(s): N39.0 - Urinary tract infection, site not specified (3) Hypogonadism in male: Code(s): E29.1 - Testicular hypofunction (4) Penile rash: Code(s): R21 - Rash and other nonspecific skin eruption (5) Urinary urgency: Code(s): R39.15 - Urgency of urination Plan In office urinalysis results reviewed with the patient today; as noted above; will send for urine culture. Recent PSA and testosterone labs reviewed with the patient today; as noted above. Continue testosterone, finasteride, and doxazosin as discussed and prescribed. Start Bactrim as discussed and prescribed. Start clotrimazole/betamethasone cream as discussed and prescribed. Discussed, educated, encouraged on the importance of drinking plenty of water daily. Discussed possible near future prostate massage for microgen testing if symptoms persist and/or worsen. Discussed at length importance of managing diabetes for improvement urinary tract symptoms as well as overall health and well-being. Follow-up in 1 month with PVR; if not sooner with any issues, concerns, and or questions. Orders: Orders AMB Urinalysis Automated 09/30/23 Z13.9 - Encounter for screening, unspecified AMB Post Void Residual by ultrasound 09/30/23 N13.8 - Other obstructive and reflux uropathy, N40.1 - Benign prostatic hyperplasia with lower urinary tract symptoms Urine Culture 09/30/23 N39.0 - Urinary tract infection, site not specified Medications: New clotrimazole-betamethasone 1-0.05 % Apply thin coat 2 times per day 1 appl topical BID 45 grams 0RF 4 weeks N48.1 - Balanitis oxybutynin chloride ER 10 mg PO DAILY 30 tabs 1RF 30 days N32.81 - Overactive bladder sulfamethoxazole-trimethoprim 800-160 mg (Bactrim DS) 1 tab PO BID 14 days 28 tabs 0RF N39.0 - Urinary tract infection, site not specified Patient Instructions: The patient had an opportunity to ask questions regarding the treatment plan. All questions were answered. Physical exam, labs, and imaging were discussed and reviewed in detail. As well as risks, benefits, and discussion of treatment choices. No major barriers to understanding were identified. The patient expressed understanding and agreement with the above treatment plan. The patient was made aware they should contact our office by phone for worsening of their current condition, the appearance of new symptoms, or with any questions or concerns. Compliance is encouraged with any medications and follow up testing that is ordered. It is a privilege to be allowed the opportunity to participate in? your urological care.? Again, if you have any questions or concerns If you have any questions or concerns please do not hesitate to contact me. The office is [phone]. This note is constructed using voice recognition software. While every effort has been made to ensure accuracy para operator errors may have been included. Yours sincerely, HI Dennis Coding Level of Care Code Est Pt Level 4 (10373) Diagnoses Acute prostatitis N41.0 Prostatitis type: acute Urinary tract infection N39.0 Hypogonadism in male E29.1 Penile rash R21 Urinary urgency R39.15 CPT Codes Post Residual Void - PVR CPT Code: 99216-Qqhq Void Residual by ultrasound ([id number])
== END 2023-09-30 14:29 | disposition home or self-care (01) ==
PROVIDERS: PCP Internal Medicine; Visit Provider Nurse Practitioner Family
DX: N41.0 Acute prostatitis (principal); N39.0 Urinary tract infection, site not specified; E29.1 Testicular hypofunction; R21 Rash and other nonspecific skin eruption; R39.15 Urgency of urination
CPT/HCPCS: 99214

== ENCOUNTER 2023-11-09 08:42 | Outpatient (AMB) | payer MEDICARE, SELFPAY ==
--- NOTE | 2023-11-09 09:09 | MHC.OFFVIS ---
Intake Intake Visit Reasons: 6w follow up Intake Note: Patient is present for follow up penile rash/chronic uti Urology Med: Doxazosin, Finasteride, Oxybutynin, testosterone Antibiotic Allergy: None Blood Thinner: None PVR: 49ml's World Designer Required: No Accompanied by: Self / Same As Patient Allergies morphine Allergy (Severe, Verified 11/09/23 20:29) agitation/severe skin symptoms oxycodone Allergy (Severe, Verified 11/09/23 20:29) agitation/severe skin symptoms Medication List - Last Reconciled 11/09/23 by SAMIA DennisP- albuterol sulfate 90 mcg/actuation 2 puffs PO Q6H aspirin (Ecotrin Low Strength) 81 mg PO DAILY blood sugar diagnostic As directed cetirizine 10 mg PO DAILY clotrimazole-betamethasone 1-0.05 % 1 appl topical BID 4 weeks dapagliflozin propanediol (Farxiga) 5 mg PO DAILY diltiazem HCl (Cartia XT) 300 mg PO DAILY doxazosin 4 mg PO DAILY finasteride 5 mg PO DAILY fluticasone propionate 50 mcg/actuation 2 sprays intranasal QAM guungtswind-gffmvqldx-vivnsvnc 200-62.5-25 mcg (Trelegy Ellipta) 1 ea inhalation DAILY PRN hydrochlorothiazide 25 mg PO DAILY melatonin 10 mg PO BEDTIME montelukast 10 mg PO DAILY nitrofurantoin macrocrystal 100 mg PO BID 10 days omeprazole 20 mg PO DAILY oxybutynin chloride ER 10 mg PO DAILY 30 days rosuvastatin 5 mg PO DAILY semaglutide (Ozempic) 2.5 mg subcut QWEEK testosterone 2 pumps topical DAILY 28 days tramadol 50 mg PO Q6H PRN HPI HPI Comments History of Present Illness Details Fabian is a very pleasant 78-year-old male patient of Dr Fountain. He has a past medical history of diabetes, peripheral neuropathy, sleep apnea, hypertension, hiatal hernia, diverticulosis, coronary artery disease, asthma, colitis, osteoarthritis, chronic prostatitis, and hypogonadism. He presents to the office today for a follow-up of his hypogonadism, prostatitis, and lower urinary tract symptoms. Of note, patient was seen approximately 1 month ago at which time he was treated for prostatitis with Bactrim x2 weeks as well as clotrimazole-betamethasone for balanits. In discussion with the patient today he reports noting significant improvement in balanitis however continues with dysuria. He reports dysuria has been lifelong and feels he has had intermittent dysuria for over 35 years. In office urinalysis results reviewed with the patient today. Negative leukocytes, nitrites, and or microscopic hematuria. Discussed obtaining Micro[facility] for further assessment evaluation. He reports noting significant improvement in urinary urgency and frequency with 10 mg of oxybutynin daily and is requesting a refill. When asked patient reports compliance with testosterone therapy and finasteride daily. Discussed at length potential causes for dysuria patient is reporting. Discussed further assessment evaluation with in office cystoscopy. Of note, patient underwent in office cystoscopy June [address] Acuna at which time no abnormality was seen and did have mild to moderate trabeculations at the time. He otherwise denies hematuria, foul smelling urine, changes to urinary stream, flank pain, fever, and or chills. PVR 49 mL. He otherwise offers no other issues or concerns at this time. Prostatitis/CPPS: Had 2 occurrences Remain stable with high potency cranberry They present for evaluation of, chronic prostatitis. He is currently being treated with antibiotics, fluroquinolone. Current symptoms include nocturia Yes incomplete emptying No frequency Yes Symptoms have been present on and off for many years. Laboratory testing included 12/08 [facility] - E.Coli hamilton sensitive. Testing included 07/07 RBUS - good emptying, prostate 25 gm 05/09 RBUS - bilateral renal cysts but no stone. 02/09 E coli and Enterococcus Augmentin and fosfomycin sensitive - Bactrim and ciprofloxacin resistant Hypogonadism: Reivewed labs Feeling good with testosterone cream on testicles. He presents today for review lab work - wants testosterone cream renewal - E prescribed down to [place] will try scrotal application. Initial symptoms include erectile dysfunction Yes decreased libido Yes change in mood/depression Yes in muscle size/strength Yes increased fatigue/malaise Yes increased abdominal fat No tender breasts/gynecomastia No hair loss No osteopenia No The onset of symptoms has been gradual. Laboratory results 12/08 , testosterone 649, PSA 0.85 07/08 [facility] - PSA 0.85, T 229 12/09 T 217 PSA 0.7 02/06 T 686 05/09 T 170 12/10 PSA 0.4 T 200, 06/09 T 279 PSA 0.15, 09/10 T 244 PSA 0.15, 05/12 T 215 PSA 0.14, 02/10 T 398 P 0.14, 07/13 T 337 P 2.7 Current therapy includes gel/cream exogenous testosterone. Response to therapy has been improved. Therapeutic plan Continue therapy. [facility] Medical History Diabetes Peripheral neuropathy Sleep apnea HTN (hypertension) Hiatal hernia Diverticulosis CAD (coronary artery disease) Asthma Colitis Acute cystitis with hematuria Gross hematuria Rotator cuff impingement syndrome of left shoulder Primary osteoarthritis, left shoulder Poor urinary stream Benign prostatic hyperplasia with lower urinary tract symptoms Chronic prostatitis Hypogonadism in male Surgical History History of back surgery Hx of transurethral resection of prostate Hx of arthroscopy of right knee Hx of shoulder surgery History of esophagogastroduodenoscopy (EGD) H/O colonoscopy History of total knee replacement (TKR) Family History Father No problems noted. Mother No problems noted. Social History Are you a primary daycare director to a significant other at home: No Do you presently have visiting nurse or other home services: No Patient Tobacco Use Status: Former Tobacco user Quit Date: 1989 Tobacco use type: Cigarette Physical Exam Const General: cooperative, comfortable, no acute distress, well developed, alert and awake Orientation/consciousness: patient oriented x3 HEENT Head: Yes normal to inspection, Yes normocephalic and Yes atraumatic Ears: hearing grossly normal bilaterally Eyes General: appearance normal, both eyes and all related structures Neck Neck: Yes normal visual inspection and Yes trachea midline Chest Chest palpation & inspection: normal inspection of the chest Resp Effort & Inspection: normal respiratory effort and able to speak in complete sentences Cardio Rate: regular rate GI Inspection: Yes normal to inspection General: Yes no CVA tenderness Male General Exam: Yes normal external exam Penis: uncircumcised, erythematous and other (as noted in HPI) Meatus: meatus normal Scrotum: scrotum normal Testes: Testes normal Back/Spine/Pelvis Back: no CVA tenderness Skin General skin exam: no rashes or lesions noted Neuro General: patient oriented x3 Extrem General: Yes normal to inspection Psych Appearance: grossly normal and well kempt Mental Status: mental status grossly normal Speech and movement: Normal speech and movement present and Clear speech present Affect: normal affect Attitude: cooperative Thought process: Normal thought process present Thought content: Normal thought content present Insight: Fair insight present (Psych) Judgement: Fair judgement present (Psych) Office Procedures Post Void Residual Post Residual Void Post Void Residual (PVR): 49 [id number] Void Residual by ultrasound Results AMB Urinalysis, Automated UA Leukoctes 0 Filippo/uL Last Edit by [facility] on 11/09/23 09:23 UA Nitrite Negative Last Edit by [email or web address] on 11/09/23 09:23 UA Urobilinogen 0.2 mg/dL Last Edit by [email or web address] on 11/09/23 09:23 UA Protein 30 mg/dL Last Edit by [facility] on 11/09/23 09:23 UA pH 6.0 Last Edit by [facility] on 11/09/23 09:23 UA Blood 0 Jarred/uL Last Edit by [facility] on 11/09/23 09:23 UA Specific [place] 1.020 Last Edit by [facility] on 11/09/23 09:23 UA Ketone Negative Last Edit by [facility] on 11/09/23 09:23 UA Bilirubin 0 mg/dL Last Edit by [facility] on 11/09/23 09:23 UA Glucose 0 mg/dL Last Edit by [facility] on 11/09/23 09:23 Results Reviewed Results Reviewed: Laboratory Last Values Urine pH (Auto) 6.0 11/09/23 09:11 Specific [place] (Auto) 1.020 11/09/23 09:11 Urine Protein (Auto) 30 mg/dL 11/09/23 09:11 Glucose (UA)(Auto) 0 mg/dL 11/09/23 09:11 Urine Ketones (Auto) Negative 11/09/23 09:11 Urine Blood (Auto) 0 Jarred/uL 11/09/23 09:11 Urine Nitrite (Auto) Negative 11/09/23 09:11 Urine Bilirubin (Auto) 0 mg/dL 11/09/23 09:11 Urine Urobilinogen (Auto) 0.2 mg/dL 11/09/23 09:11 Leukocyte Esterase (Auto) 0 Filippo/uL 11/09/23 09:11 Assessment & Plan Assessment & Plan (1) Prostatitis: Code(s): N41.9 - Inflammatory disease of prostate, unspecified Qualifiers: Prostatitis type: acute Qualified Code(s): N41.0 - Acute prostatitis (2) Urinary tract infection: Code(s): N39.0 - Urinary tract infection, site not specified (3) Hypogonadism in male: Code(s): E29.1 - Testicular hypofunction (4) Penile rash: Code(s): R21 - Rash and other nonspecific skin eruption (5) Urinary urgency: Code(s): R39.15 - Urgency of urination Plan In office urinalysis results reviewed with the patient today; discussed sending sample for microgen; however, patient will call insurance company to further assess co-payment if any. Continue testosterone, finasteride, doxazosin, and oxybutynin as discussed and prescribed. Discussed, educated, encouraged on the importance of drinking plenty of water daily. Discussed at length importance of managing diabetes for improvement urinary tract symptoms as well as overall health and well-being. Follow-up cystoscopy for further assessment and evaluation; or sooner with any issues, concerns, and or questions. Orders: Orders AMB Urinalysis Automated Today Z13.9 - Encounter for screening, unspecified AMB Post Void Residual by ultrasound Today N39.0 - Urinary tract infection, site not specified Medications: Refilled oxybutynin chloride ER 10 mg PO DAILY 30 days 30 tabs 1RF N32.81 - Overactive bladder Patient Instructions: The patient had an opportunity to ask questions regarding the treatment plan. All questions were answered. Physical exam, labs, and imaging were discussed and reviewed in detail. As well as risks, benefits, and discussion of treatment choices. No major barriers to understanding were identified. The patient expressed understanding and agreement with the above treatment plan. The patient was made aware they should contact our office by phone for worsening of their current condition, the appearance of new symptoms, or with any questions or concerns. Compliance is encouraged with any medications and follow up testing that is ordered. It is a privilege to be allowed the opportunity to participate in? your urological care.? Again, if you have any questions or concerns If you have any questions or concerns please do not hesitate to contact me. The office is [phone]. This note is constructed using voice recognition software. While every effort has been made to ensure accuracy balance truer errors may have been included. Yours sincerely, HI Dennis Coding Level of Care Code Est Pt Level 3 (97218) Diagnoses Acute prostatitis N41.0 Prostatitis type: acute Urinary tract infection N39.0 Hypogonadism in male E29.1 Penile rash R21 Urinary urgency R39.15 CPT Codes Post Residual Void - PVR CPT Code: 44951-Ixdw Void Residual by ultrasound ([id number])
== END 2023-11-09 09:50 | disposition home or self-care (01) ==
PROVIDERS: PCP Internal Medicine; Visit Provider Nurse Practitioner Family
DX: N41.0 Acute prostatitis (principal); N39.0 Urinary tract infection, site not specified; E29.1 Testicular hypofunction; R21 Rash and other nonspecific skin eruption; R39.15 Urgency of urination
CPT/HCPCS: 99213

== ENCOUNTER → 2023-11-09 08:42 | Outpatient (BNVA) | payer MEDICARE, SELFPAY | PROVIDERS: PCP Internal Medicine; Visit Provider Nurse Practitioner Family | DX: N41.0 Acute prostatitis (principal); N39.0 Urinary tract infection, site not specified; E29.1 Testicular hypofunction; R21 Rash and other nonspecific skin eruption; R39.15 Urgency of urination | CPT/HCPCS: 51798; 81003; 99212 ==

== ENCOUNTER 2023-11-10 09:46 | Outpatient (AMB) | payer MEDICARE, SELFPAY ==
[2023-11-10 10:01] VITALS: BP 140/76; PULSE 84; RESP 6; O2SAT 96; BMI 34.7
--- NOTE | 2023-11-10 10:01 | MHC.OFFVIS ---
Intake Vital Signs 11/10/23 10:01 Height 5 ft 9 in Weight 235 lb 4 oz BMI 34.7 BP 140/76 H Blood Pressure Location Lt brachial Position Sitting Respiration 6 L Pulse 84 Pulse Source Pulse Oximeter Pulse Oximetry (%) 96 Oxygen Delivery Method Room Air Intake Visit Reasons: Left hip trigger point injection Allergies morphine Allergy (Severe, Verified 11/10/23 10:02) agitation/severe skin symptoms oxycodone Allergy (Severe, Verified 11/10/23 10:02) agitation/severe skin symptoms HPI HPI Comments History of Present Illness Details Fabian is back in my office to receive a 2nd trochanteric bursa steroid injection. He reports excellent pain relief in the bursa and the left thigh. It was done in August of 2023. Now the pain is back and he wants to perform the injection again. I explained to the patient risks and benefits of the injection. I also explained to him need for measuring his blood sugar at least twice a day for the next 21 days. If his blood sugar will go higher than 200 he needs to see his primary care physician. If the blood sugar will go I than 350 he probably needs to go to emergency room. Reports limitations of the mobility. Reports pain in the trochanteric bursa with radiation of the pain down on the lateral side of the left lower extremity. Prior: very pleasant 77 years old gentleman who presents in my office with complains in the pain in left hip in the projection of the left trochanter. He was operated on the his lower back by DR. Delgadillo and his back pain is all but gone but the pain in the left thigh continues to bother him. I offered him US guided left trochanteric bursa injection. The patient agreed to go for the procedure. See description as below. c/o pain in the left side of his lower back with radiation of the pain into the left lower extremity to the level of the thigh but not below that level as well as tenderness of palpation in projection of the left thigh in the area of the trochanter.? He reports that because of this pain he cannot sleep normally cannot do activities of daily living heating care can take care of himself but he cannot function normally.? He is retired individual.? He reports that he is taking NSAIDs which helped his pain.? He had an MRI about 6 years ago after that surgery.? He had extensive course of physical therapy at [facility].? He reports no improvement of the pain.? He reported injection of the trochanteric bursa in the past which alleviated his pain.. [facility] Medical History Diabetes Peripheral neuropathy Sleep apnea HTN (hypertension) Hiatal hernia Diverticulosis CAD (coronary artery disease) Asthma Colitis Acute cystitis with hematuria Gross hematuria Rotator cuff impingement syndrome of left shoulder Primary osteoarthritis, left shoulder Poor urinary stream Benign prostatic hyperplasia with lower urinary tract symptoms Chronic prostatitis Hypogonadism in male Surgical History History of back surgery Hx of transurethral resection of prostate Hx of arthroscopy of right knee Hx of shoulder surgery History of esophagogastroduodenoscopy (EGD) H/O colonoscopy History of total knee replacement (TKR) Family History Father No problems noted. Mother No problems noted. Social History Are you a primary school child care attendant to a significant other at home: No Do you presently have visiting nurse or other home services: No Patient Tobacco Use Status: Former Tobacco user Quit Date: 1989 Tobacco use type: Cigarette Review of Systems Const All systems reviewed & are unremarkable except as noted in HPI and below Physical Exam Vital Signs: Last Vital Signs Pulse 84 11/10/23 10:01 Resp 6 L 11/10/23 10:01 BP 140/76 H 11/10/23 10:01 Pulse Ox 96 11/10/23 10:01 Oxygen Delivery Method Room Air 11/10/23 10:01 BMI result Body Mass Index 34.7 Const General: no acute distress and alert Orientation/consciousness: patient oriented x3 Resp Effort & Inspection: normal respiratory effort, able to speak in complete sentences, no audible wheezes, no cough, respiratory effort not decreased and no grunting Cardio Jugular venous distension: no JVD GI Inspection: Yes normal to inspection Back/Spine/Pelvis Other: No tenderness of palpation in paraspinal spinal region. No tenderness in projection of sacroiliac joints. No tenderness on projection of the sciatic nerve point of exiting from the pelvis. Able to stand on bilateral tiptoes in bilateral heels. Demonstrates normal strength of bilateral lower extremities. Easily able to flex forward and flex backwards without difficulty. Reports no pain during this maneuvers. Grzegorz test is negative for pain increase. Reports tenderness of palpation in trochanteric bursa in the projection of left trochanter. Lateral hip rotation medial hip rotation does not cause any pain increase in the groin. No pain increase in the groin. Valsalva maneuver does not aggravate his pain. Neuro General: patient oriented x3 Extrem Other: Left Hip: TTP lateral hip/greater trochanter No groin pain with hip ROM Nl gait Psych Appearance: grossly normal Mental Status: mental status grossly normal Speech and movement: Normal speech and movement present Affect: normal affect Attitude: cooperative Thought process: Normal thought process present Thought content: Normal thought content present Assessment & Plan Assessment & Plan (1) Greater trochanteric bursitis of left hip: Code(s): M70.62 - Trochanteric bursitis, left hip Plan: I performed today a 2nd trochanteric bursitis injection of the sound guided for him see as below. The follow-up appointment will be scheduled for this patient in 1 month. If he wants to discuss anything and the pain is not relieved by his satisfaction he should give us a call and schedule an appointment earlier.. Majority of his pain is most likely coming from trochanteric bursitis and may be left iliotibial band syndrome. He was operated by Dr. Delgadillo recently and results of the surgery satisfactory. (2) Spondylosis without myelopathy or radiculopathy, lumbar region: Code(s): M47.816 - Spondylosis without myelopathy or radiculopathy, lumbar region (3) Chronic pain syndrome: Code(s): G89.4 - Chronic pain syndrome (4) Postlaminectomy syndrome: Code(s): M96.1 - Postlaminectomy syndrome, not elsewhere classified Plan Patient was positioned right lateral decubital on the examination table. The trochanteric area was prepped with ChloraPrep 25 gauge 1/2 inch needle was used to insert through the skin into the most painful area and the injection of bupivacaine 0.5% mixed with Kenalog 40 mg was performed in area in fan-like fashion. Upon completion of the injection needle was removed sterile Band-Aid was applied. Coding Level of Care Code Est Pt Level 3 (71705) Procedure Only Diagnoses Greater trochanteric bursitis of left hip M70.62 Spondylosis without myelopathy or radiculopathy, lumbar region M47.816 Chronic pain syndrome G89.4 Postlaminectomy syndrome M96.1
== END 2023-11-10 10:27 | disposition home or self-care (01) ==
PROVIDERS: PCP Internal Medicine; Visit Provider Anesthesiology
DX: G89.4 Chronic pain syndrome (principal); M47.816 Spondylosis without myelopathy or radiculopathy, lumbar region; M96.1 Postlaminectomy syndrome, not elsewhere classified; M70.62 Trochanteric bursitis, left hip
CPT/HCPCS: 20610; 99213

== ENCOUNTER → 2023-11-10 09:46 | Outpatient (BNVA) | payer MEDICARE, SELFPAY | PROVIDERS: PCP Internal Medicine; Visit Provider Anesthesiology | DX: M70.62 Trochanteric bursitis, left hip (principal); M47.816 Spondylosis without myelopathy or radiculopathy, lumbar region; M96.1 Postlaminectomy syndrome, not elsewhere classified; G89.4 Chronic pain syndrome | CPT/HCPCS: 20610; 99212; J0665; J3301 ==

== ENCOUNTER 2024-01-24 13:53 | Outpatient (AMB) | payer MEDICARE, SELFPAY ==
--- NOTE | 2024-01-24 14:05 | MHC.OFFVIS ---
Intake Intake Visit Reasons: Cystoscopy(VM to confirm) Intake Note: Patient is Present for Cystoscopy Urology Med: Doxazosin, Finasteride, Oxybutynin, Testosterone Antibiotic Allergy: None Blood Thinner: Aspirin Confirmed Pharmacy: [facility] Cystoscope lot: [id number] exp: 04/03/2025 Allergies morphine Allergy (Severe, Verified 11/10/23 10:02) agitation/severe skin symptoms oxycodone Allergy (Severe, Verified 11/10/23 10:02) agitation/severe skin symptoms HPI HPI Comments History of Present Illness Details Fabian is a pleasant male. He is a patient of Dr. Mckeon. He seen for following urologic conditions - recurring UTI - hypogonadism - prostatitis Cystoscopy Open bladder neck prior BPH procedure Chemo prophylaxis with vitamin-C and methenamine. Takes high-dose cranberry capsules Prostatitis/CPPS: Had 2 occurrences Remain stable with high potency cranberry They present for evaluation of, chronic prostatitis. He is currently being treated with antibiotics, fluroquinolone. Current symptoms include nocturia Yes incomplete emptying No frequency Yes Symptoms have been present on and off for many years. Laboratory testing included 12/08 [facility] - E.Coli [place] sensitive. Testing included 07/07 RBUS - good emptying, prostate 25 gm 05/09 RBUS - bilateral renal cysts but no stone. 02/09 E coli and Enterococcus Augmentin and fosfomycin sensitive - Bactrim and ciprofloxacin resistant - 11/12 E coli Bactrim and ciprofloxacin resistant Hypogonadism: Reivewed labs Feeling good with testosterone cream on testicles. He presents today for review lab work - wants testosterone cream renewal - E prescribed down to [place] will try scrotal application. Initial symptoms include erectile dysfunction Yes decreased libido Yes change in mood/depression Yes in muscle size/strength Yes increased fatigue/malaise Yes increased abdominal fat No tender breasts/gynecomastia No hair loss No osteopenia No The onset of symptoms has been gradual. Laboratory results 12/08 , testosterone 649, PSA 0.85 07/08 [facility] - PSA 0.85, T 229 12/09 T 217 PSA 0.7 02/06 T 686 05/09 T 170 12/10 PSA 0.4 T 200, 06/09 T 279 PSA 0.15, 09/10 T 244 PSA 0.15, 05/12 T 215 PSA 0.14, 02/10 T 398 P 0.14, 07/13 T 337 P 2.7 Current therapy includes gel/cream exogenous testosterone. Response to therapy has been improved. Therapeutic plan Continue therapy. FOR[facility]LY [facility] Medical History Diabetes Peripheral neuropathy Sleep apnea HTN (hypertension) Hiatal hernia Diverticulosis CAD (coronary artery disease) Asthma Colitis Acute cystitis with hematuria Gross hematuria Rotator cuff impingement syndrome of left shoulder Primary osteoarthritis, left shoulder Poor urinary stream Benign prostatic hyperplasia with lower urinary tract symptoms Chronic prostatitis Hypogonadism in male Surgical History History of back surgery Hx of transurethral resection of prostate Hx of arthroscopy of right knee Hx of shoulder surgery History of esophagogastroduodenoscopy (EGD) H/O colonoscopy History of total knee replacement (TKR) Family History Father No problems noted. Mother No problems noted. Social History Are you a primary college and career counselor to a significant other at home: No Do you presently have visiting nurse or other home services: No Patient Tobacco Use Status: Former Tobacco user Quit Date: 1989 Tobacco use type: Cigarette Review of Systems Const Denies chills and Denies fever(s) Card Reports no additional complaints and Denies syncope Resp Denies cough GI Denies abdominal pain and Denies heartburn Reports as per HPI and Denies change in libido Neuro Denies syncope Psych Denies change in libido Endo Denies change in libido Physical Exam Const General: cooperative, healthy appearing, comfortable and no acute distress Orientation/consciousness: patient oriented x3 HEENT Face and sinus: Yes normal facial exam Mouth: moist mucous membranes Neck Neck: Yes normal visual inspection, Yes full ROM and Yes trachea midline Chest Chest palpation & inspection: normal inspection of the chest Resp Effort & Inspection: normal respiratory effort, able to speak in complete sentences and no respiratory distress GI Inspection: Yes normal to inspection Back/Spine/Pelvis Cervical Spine: normal cervical lordosis Thoracic/Lumbar Spine: thoracic and lumbar spine normal to inspection Skin General skin exam: no rashes or lesions noted Neuro General: patient oriented x3, gait normal, tone normal and moves all extremities Extrem General: Yes normal to inspection and Yes capillary refill normal Office Procedures Cystoscopy Consent Discussed risk and benefit or proposed procedure with the patient. Information consent for procedure given to the patient. Discussed technical aspects, risks, benefits and alternatives in full. Addressed all of the patient's questions and concerns regarding the procedure. The patient demonstrated knowledge and understanding. They wish to proceed with this procedure. Preparation The patient was prepped in the usual manner. A media director was present and in the room. Genitalia was prepped with betadine solution in a sterile manner. Lidocaine Jelly 2% was placed into the urethra and 16Fr flexible Olympus cystoscope was inserted into the meatus after adequate lubrication. Procedure Meatus circumcised Urethra anterior and posterior urethra normal Prostatic Urethra TURP defect Bladder examination with retroflexion of cystoscope Bladder Orifices normal shape and position Bladder Capacity median Trabeculations grade 1/2 Cellule Formation - Diverticulum Formation - Mucosal Erythema - Bladder Tumor - 74430-[id number] DISPOSABLE SCOPE [facility] FLEXIBLE SCOPE Procedure code (CPT) selection complete Office Meds lidocaine HCl 2 % mucosal jelly in applicator Performing Provider: Amilcar Acuna MD Performing Location: [facility] Administered by: Celia Craig RN on 01/24/24 14:35 Dose Route Admin Location Dispensed Lot Number Expiration Date NDC Rosin Barrel Filler 10 mL intra-urethral 10 mL nitrofurantoin monohydrate/macrocrystals 100 mg capsule Performing Provider: Amilcar Acuna MD Performing Location: [facility] Administered by: Celia Craig RN on 01/24/24 14:35 Dose Route Admin Location Dispensed Lot Number Expiration Date NDC Rosin Barrel Filler 100 mg PO 1 cap naproxen 500 mg tablet Performing Provider: Amilcar Acuna MD Performing Location: [facility] Administered by: Celia Craig RN on 01/24/24 14:35 Dose Route Admin Location Dispensed Lot Number Expiration Date NDC Rosin Barrel Filler 500 mg PO 1 tab Results AMB Urinalysis, Automated UA Leukoctes 0 Filippo/uL Last Edit by PHUONG Feliciano on 01/24/24 14:22 UA Nitrite Negative Last Edit by PHUONG Feliciano on 01/24/24 14:22 UA Urobilinogen 0.2 mg/dL Last Edit by Jenny Gallo, RMA on 01/24/24 14:22 UA Protein 30 mg/dL Last Edit by Jenny Gallo, RMA on 01/24/24 14:22 UA pH 6.0 Last Edit by Jenny Gallo, RMA on 01/24/24 14:22 UA Blood 0 Jarred/uL Last Edit by Jenny Gallo, RMA on 01/24/24 14:22 UA Specific [place] 1.015 Last Edit by Jenny Gallo, RMA on 01/24/24 14:22 UA Ketone Negative Last Edit by Jenny Gallo, RMA on 01/24/24 14:22 UA Bilirubin 0 mg/dL Last Edit by Jenny Gallo, RMA on 01/24/24 14:22 UA Glucose 0 mg/dL Last Edit by Jenny Gallo, A on 01/24/24 14:22 Results Reviewed Results Reviewed: Laboratory Last Values Urine pH (Auto) 6.0 01/24/24 14:18 Specific [place] (Auto) 1.015 01/24/24 14:18 Urine Protein (Auto) 30 mg/dL 01/24/24 14:18 Glucose (UA)(Auto) 0 mg/dL 01/24/24 14:18 Urine Ketones (Auto) Negative 01/24/24 14:18 Urine Blood (Auto) 0 Jarred/uL 01/24/24 14:18 Urine Nitrite (Auto) Negative 01/24/24 14:18 Urine Bilirubin (Auto) 0 mg/dL 01/24/24 14:18 Urine Urobilinogen (Auto) 0.2 mg/dL 01/24/24 14:18 Leukocyte Esterase (Auto) 0 Filippo/uL 01/24/24 14:18 Assessment & Plan Assessment & Plan (1) Chronic UTI (urinary tract infection): Code(s): N39.0 - Urinary tract infection, site not specified (2) Hypogonadism in male: Code(s): E29.1 - Testicular hypofunction Plan Three-month follow-up Orders: Orders AMB Urinalysis Automated 01/24/24 Z13.9 - Encounter for screening, unspecified AMB Cystoscopy 01/24/24 N13.8 - Other obstructive and reflux uropathy, N40.1 - Benign prostatic hyperplasia with lower urinary tract symptoms Medications: New ascorbic acid (vitamin C) 1 g PO DAILY 90 tabs 1RF 90 days N39.0 - Urinary tract infection, site not specified methenamine hippurate 1 g PO DAILY 90 tabs 1RF 90 days N39.0 - Urinary tract infection, site not specified Patient Instructions: Imaging studies, laboratory and physical exam results were discussed and reviewed in detail. No major barriers to patient understanding were identified. An opportunity to ask questions regarding the treatment plan was provided. All questions were answered. The patient expressed understanding and agreement with the above treatment plan. The patient is aware they should contact our office by phone for worsening of their current condition or the appearance of new urologic symptoms. Compliance is encouraged with any medications and followup testing that is ordered. It is a privilege to participate in the urologic care of your patient. If you have any questions or concerns regarding treatment for the above conditions, or other urologic issues, please do not hesitate to contact me. The office telephone contact is [phone]. This note is constructed using voice recognition software. While every effort has been made to ensure accuracy technical service specialist errors may have been included. Yours sincerely, Dr Amilcar Acuna MD, [facility] - Urology Providers of Expert, Compassionate Care for the Genitourinary System Coding Level of Care Code Est Pt Level 4 (74280) Diagnoses Chronic UTI (urinary tract infection) N39.0 Hypogonadism in male E29.1 CPT Codes Cystoscopy - CPT: 42443-[id number] ([id number])
== END 2024-01-24 14:55 | disposition home or self-care (01) ==
PROVIDERS: PCP Internal Medicine; Visit Provider Urology
DX: N40.1 Benign prostatic hyperplasia with lower urinary tract symptoms (principal); N13.8 Other obstructive and reflux uropathy; Z13.9 Encounter for screening, unspecified
CPT/HCPCS: 52000; 99213

== ENCOUNTER → 2024-01-24 13:53 | Outpatient (BNVA) | payer MEDICARE, SELFPAY | PROVIDERS: PCP Internal Medicine; Visit Provider Urology | DX: N39.0 Urinary tract infection, site not specified (principal); E29.1 Testicular hypofunction | CPT/HCPCS: 52000; 81003; 99212 ==

== ENCOUNTER 2024-02-03 15:20 | Emergency (ER) | payer MEDICARE, SELFPAY ==
--- NOTE | ~2024-02-03 | XR_ITS ---
EXAMINATION: XR TIBIA AND FIBULA, RIGHT CLINICAL INFORMATION: Pain COMPARISON: None available. TECHNIQUE: AP and lateral views of the right tibia and fibula were obtained. FINDINGS: Partially visualized right knee replacement. Well-corticated ossification inferior to the medial malleolus probably representing changes from old trauma. No acute fracture or dislocation. Normal soft tissues. XR/XR tibia fibula RT 2V IMPRESSION: No acute fracture or dislocation.
--- NOTE | 2024-02-03 15:25 | ED.GENADULT ---
HPI - General Adult General Chief complaint: Extremity Injury, Lower Stated complaint: R leg pain Time Seen by Provider: 02/03/24 18:45 Source: patient Mode of arrival: ambulatory Limitations: no limitations History of Present Illness HPI narrative: 78-year-old male with a history diabetes presents the ER with complaints of right lower extremity pain. Patient reports last night he was cutting wood and the chainsaw hit the wood causing the wood piece to hit his leg. Now he is having pain and bruising. Related Data Home Medications Medication Instructions Recorded Confirmed albuterol sulfate 90 mcg/actuation 2 puff PO Q6H 02/27/21 10/02/23 aerosol inhaler blood sugar diagnostic #10 ea 02/27/21 10/02/23 montelukast 10 mg tablet 10 mg PO DAILY 02/27/21 10/02/23 omeprazole 20 mg capsule,delayed 20 mg PO DAILY 02/27/21 10/02/23 release diltiazem HCl 300 mg 300 mg PO DAILY 09/01/21 10/02/23 capsule,extended release 24 hr (Cartia XT) rosuvastatin 5 mg tablet 5 mg PO DAILY 02/03/22 10/02/23 dapagliflozin propanediol 5 mg 5 mg PO DAILY 12/29/22 10/02/23 tablet (Farxiga) aspirin 81 mg tablet,delayed 81 mg PO DAILY 05/18/23 10/02/23 release (Ecotrin Low Strength) cetirizine 10 mg tablet 10 mg PO DAILY 05/18/23 10/02/23 doxazosin 4 mg tablet 4 mg PO DAILY 05/18/23 10/02/23 finasteride 5 mg tablet 5 mg PO DAILY 05/18/23 10/02/23 fluticasone propionate 50 2 spray intranasal QAM 05/18/23 10/02/23 mcg/actuation nasal spray,suspension melatonin 10 mg tablet 10 mg PO BEDTIME 05/18/23 10/02/23 semaglutide 0.25 mg or 0.5 mg (2 2.5 mg subcut QWEEK 05/18/23 10/02/23 mg/3 mL) subcutaneous pen injector (Ozempic) fluticasone fur. 200 mcg-umeclid 1 ea inhalation DAILY PRN acute 05/19/23 10/02/23 62.5 mcg-vilant 25 mcg wheezing inhalat.powder (Trelegy Ellipta) hydrochlorothiazide 25 mg tablet 25 mg PO DAILY 05/23/23 10/02/23 Previous Rx's Medication Instructions Recorded testosterone 2 pump topical DAILY 28 days #75 05/11/23 grams tramadol 50 mg tablet 50 mg PO Q6H PRN pain #30 tabs 06/02/23 clotrimazole-betamethasone 1 1 appl topical BID 4 weeks #45 09/30/23 %-0.05 % topical cream grams nitrofurantoin macrocrystal 100 mg 100 mg PO BID 10 days #20 caps 10/02/23 capsule oxybutynin chloride 10 mg 10 mg PO DAILY 30 days #30 tabs 01/16/24 tablet,extended release 24 hr ascorbic acid (vitamin C) 1,000 mg 1 g PO DAILY 90 days #90 tabs 01/25/24 tablet methenamine hippurate 1 gram tablet 1 g PO DAILY 90 days #90 tabs 01/25/24 Allergies Allergy/AdvReac Type Severity Reaction Status Date / Time morphine Allergy Severe agitation/severe Verified 02/03/24 15:28 skin symptoms oxycodone Allergy Severe agitation/severe Verified 02/03/24 15:28 skin symptoms Review of Systems Review of Systems: Yes all other systems are reviewed and are negative Constitutional: Constitutional: Reports no additional constitutional complaints, Denies body ache(s), Denies chills, Denies fever(s), Denies headache(s) and Denies weakness Eyes: Eyes: Reports no additional eye complaints and Denies change in vision ENT: Reports system reviewed and no additional complaints, except as documented, Denies dizziness, Denies headache(s), Denies nasal congestion, Denies nasal discharge and Denies neck pain Cardiovascular: Cardiovascular: Reports no additional cardiovascular complaints, Denies chest pain, Denies leg edema and Denies dyspnea Respiratory: Respiratory: Reports no additional respiratory complaints, Denies cough and Denies dyspnea Gastrointestinal: Gastrointestinal: Reports no additional gastrointestinal complaints, Denies abdominal pain, Denies diarrhea, Denies nausea and Denies vomiting Genitourinary: Genitourinary: Denies urinary incontinence Musculoskeletal: Musculoskeletal: Reports no additional musculoskeletal complaints, Denies back pain, Denies arthralgias, Denies joint swelling, Denies neck pain, Denies numbness and Denies tingling Integumentary/Breasts: Skin/Breast: Reports system reviewed and no additional complaints, except as docu and Denies rash Neurologic: Reports system reviewed and no additional complaints, except as documented, Denies Abnormal speech present, Denies dizziness, Denies headache(s), Denies numbness, Denies tingling and Denies weakness PMF Past Medical History Attestation statement: The following information was validated with the patient. Source: old records reviewed and nursing notes reviewed Medical History Diabetes Peripheral neuropathy Sleep apnea HTN (hypertension) Hiatal hernia Diverticulosis CAD (coronary artery disease) Asthma Colitis Acute cystitis with hematuria Gross hematuria Rotator cuff impingement syndrome of left shoulder Primary osteoarthritis, left shoulder Poor urinary stream Benign prostatic hyperplasia with lower urinary tract symptoms Chronic prostatitis Hypogonadism in male Surgical History History of back surgery Hx of transurethral resection of prostate Hx of arthroscopy of right knee Hx of shoulder surgery History of esophagogastroduodenoscopy (EGD) H/O colonoscopy History of total knee replacement (TKR) Family History Family History Father No problems noted. Mother No problems noted. Social History Social History Are you a primary health care legal assistant to a significant other at home: No Do you presently have visiting nurse or other home services: No Patient Tobacco Use Status: Former Tobacco user Quit Date: 1989 Tobacco use type: Cigarette Advance Directives: No Advance Directives Information Provided: No Physical Exam ED Vital Signs: Vital Signs - 24 hr 02/03/24 15:26 02/03/24 20:04 Temperature 98.7 F 0 F L Pulse Rate 70 0 L Respiratory Rate 18 0 L Blood Pressure 118/78 00/00 L Pulse Oximetry 96 Oxygen Delivery Method Room Air BMI result Body Mass Index 35.5 Const General: cooperative, healthy appearing, comfortable and no acute distress Orientation/consciousness: patient oriented x3 Limitations: no limitations HENMT Head: Yes normal to inspection Ears: hearing grossly normal bilaterally General nose exam: Normal external nose present Face and sinus: Yes normal facial exam Mouth: Normal oral and palatal mucosa present Throat: Yes posterior oropharynx normal Eyes General: appearance normal, both eyes and all related structures Pupils: Equal, round and reactive pupils present Neck Neck: Yes normal visual inspection Chest Chest palpation & inspection: normal inspection of the chest Resp Effort & Inspection: normal respiratory effort Auscultation: clear to auscultation bilaterally Cardio Rate: regular rate Rhythm: regular rhythm Peripheral pulses: Peripheral pulses 2+ throughout GI Inspection: Yes normal to inspection Palpation (GI): Soft to palpation and nontender Auscultation: normal bowel sounds Back/Spine/Pelvis Thoracic/Lumbar Spine: thoracic and lumbar spine normal to inspection Skin General skin exam: no rashes or lesions noted Neuro General: patient oriented x3, no focal motor deficits and normal sensation to monofilament Cranial nerves: Yes Equal, round and reactive pupils present Cognition (Neuro): normal cognition Speech: No Abnormal speech present Gait exam (Neuro): Normal gait present Motor exam (neuro): 5/5 motor strength present throughout Extrem Other: To the right lower leg to the mid perez there is swelling and bruising. Normal DP and PT pulses. Normal sensation. Full range of motion to the right lower extremity with actively and passively Course Course Course Narrative: This is an RME: Additional HPI, ROS, PE not included below will be deferred to primary provider. Patient is a 78-year-old man who presents emergency department Reports that yesterday he was using a chain saw to cut some wood when one of the pieces of wood broke off striking his right leg anteriorly below the knee. Reports pain to be severe throbbing pain. Unrelieved with Tylenol/ibuprofen. Plan: XR Medical Decision Making Medical Decision Making [facility] Narrative: 78-year-old male with a history diabetes presents the ER with complaints of right lower extremity pain. Patient reports last night he was cutting wood and the chainsaw hit the wood causing the wood piece to hit his leg. Now he is having pain and bruising. To the right lower leg to the mid perez there is swelling and bruising. Normal DP and PT pulses. Normal sensation. Full range of motion to the right lower extremity with actively and passively Will check x-ray Differential Diagnosis Differential Diagnoses: The differential diagnosis associated with the presentation includes Contusion, fracture Admission/Observation Consideration of admission/observation: Escalation of care including admission/observation considered Low suspicion for complex fracture, dislocation or vascular injury requiring advanced imaging or urgent orthopedic consultation Lab Data MDM Lab Attestation statement: I reviewed the patient's lab results. Labs: Lab Results 02/03/24 Range/Units 18:22 Urine Color Yellow Urine Appearance Clear Urine pH 6.0 (5.0-9.0) Ur Specific [place] 1.010 (1.005-1.025) Urine Protein Negative (Neg-Trace) mg/dL Urine Glucose (UA) Negative (Negative) mg/dL Urine Ketones Negative (Negative) mg/dL Urine Blood Negative (Negative) Urine Nitrite Negative (Negative) Ur Leukocyte Esterase Negative (Negative) Independent Interpretation I performed an independent interpretation of an: Plain X-Ray Interpretation: I independently reviewed the x-ray and agree with the radiology report Radiology Impression Discussion of test interpretation with radiology: I have reviewed the radiologist's reading. Radiologist Impression: [address] [address] XRay Report Signed Patient: Fabian Haskins MR#: [id number] : 1945 Acct:[id number] Age/Sex: 78 / M ADM Date: 02/03/24 Loc: .ED Attending Dr: Ordering Physician: Margo Sanchez CNP Date of Service: 02/03/24 Procedure(s): XR tibia fibula RT 2V Accession Number(s): [id number] cc: Margo Sanchez CNP; KIMI DIAZ MD~ EXAMINATION: XR TIBIA AND FIBULA, RIGHT CLINICAL INFORMATION: Pain COMPARISON: None available. TECHNIQUE: AP and lateral views of the right tibia and fibula were obtained. FINDINGS: Partially visualized right knee replacement. Well-corticated ossification inferior to the medial malleolus probably representing changes from old trauma. No acute fracture or dislocation. Normal soft tissues. XR/XR tibia fibula RT 2V IMPRESSION: No acute fracture or dislocation. Tests considered The following testing was considered but not selected: Low suspicion for complex fracture, dislocation or vascular injury requiring advanced imaging Prescription Management I considered prescription management with: Pain Medication Discharge Plan Discharge Clinical Impression: Contusion of leg, right Patient Disposition: Home, Self-Care Instructions: Contusion in Adults (ED) Additional Instructions: Rest, ice, elevate Use the compression wrap for discussed Take Tylenol for pain Return for worsening symptoms Prescriptions: No Action testosterone 20.25 mg/1.25 gram (1.62 %) gel in metered-dose pump 2 pump topical DAILY 28 Days Qty: 75 5RF Rx Instructions: apply 2 pumps total to arms nitrofurantoin macrocrystal 100 mg capsule 100 mg PO BID 10 Days Qty: 20 0RF oxybutynin chloride 10 mg tablet extended release 24hr 10 mg PO DAILY 30 Days Qty: 30 1RF cetirizine 10 mg tablet 10 mg PO DAILY doxazosin 4 mg Tablet 4 mg PO DAILY fluticasone propionate 50 mcg/actuation spray,suspension 2 spray intranasal QAM finasteride 5 mg tablet 5 mg PO DAILY Ozempic 0.25 mg or 0.5 mg (2 mg/3 mL) pen injector 2.5 mg subcut QWEEK aspirin [Ecotrin Low Strength] 81 mg Tablet,Delayed Release (Dr/Ec) 81 mg PO DAILY Hold Instructions: Resume on 06/06/23. melatonin 10 mg Tablet 10 mg PO BEDTIME Trelegy Ellipta 200-62.5-25 mcg blister with device 1 ea inhalation DAILY PRN (Reason: acute wheezing) hydrochlorothiazide 25 mg tablet 25 mg PO DAILY tramadol 50 mg tablet 50 mg PO Q6H PRN (Reason: pain) Qty: 30 0RF diltiazem HCl [Cartia XT] 300 mg capsule,extended release 24hr 300 mg PO DAILY albuterol sulfate 90 mcg/actuation HFA aerosol inhaler 2 puff PO Q6H (DME) blood sugar diagnostic Strip See Rx Instructions Not Applicable BID Qty: 10 Rx Instructions: As directed montelukast 10 mg tablet 10 mg PO DAILY omeprazole 20 mg capsule,delayed release(DR/EC) 20 mg PO DAILY rosuvastatin 5 mg tablet 5 mg PO DAILY Farxiga 5 mg tablet 5 mg PO DAILY ascorbic acid (vitamin C) 1,000 mg tablet 1 g PO DAILY 90 Days Qty: 90 1RF methenamine hippurate 1 gram tablet 1 g PO DAILY 90 Days Qty: 90 1RF clotrimazole-betamethasone 1-0.05 % cream 1 appl topical BID 28 Days Qty: 45 0RF Rx Instructions: Apply thin coat 2 times per day Referrals: Kimi Diaz MD [Primary Care Provider] - 1 week Interventions: ED Discharge Assessment Last Done: 02/03/24 20:04 Discharge Date/Time: 02/03/24 20:05
[2024-02-03 15:26] VITALS: BP 118/78; PULSE 70; RESP 18; TEMP 37.1; O2SAT 96; BMI 35.5
[2024-02-03 18:33] LABS: Appearance Urine Clear; Color Urine Yellow; Glucose Urine UA Negative (Negative); Leukocyte Esterase Urine Negative (Negative); Nitrite Urine Negative (Negative); Urine Blood Negative (Negative); Urine Ketones Negative (Negative); Urine Protein Negative (Neg-Trace)
[2024-02-03 20:04] VITALS: BP 00/00; PULSE 0; RESP 0; TEMP -17.7; TEMP 0
== END 2024-02-03 20:05 | disposition home or self-care (01) ==
PROVIDERS: Emergency Provider Internal Medicine; PCP Internal Medicine
DX: S80.11XA Contusion of right lower leg, initial encounter (principal); E11.9 Type 2 diabetes mellitus without complications; I10 Essential (primary) hypertension; W20.8XXA Other cause of strike by thrown, projected or falling object, initial encounter; Y93.89 Activity, other specified; Y92.9 Unspecified place or not applicable; Y99.9 Unspecified external cause status
CPT/HCPCS: 73590; 81003; 99282; 99283

== ENCOUNTER 2024-02-15 13:48 | Outpatient (AMB) | payer MEDICARE, SELFPAY ==
--- NOTE | 2024-02-15 14:07 | A.SPINEOV_ITS ---
Intake Intake Visit Reasons: Discuss possible surgery Intake Note: Ms. Lopez is here today to Discuss sx. Auto Emissions Technician Required: No Allergies morphine Allergy (Severe, Verified 02/03/24 15:28) agitation/severe skin symptoms oxycodone Allergy (Severe, Verified 02/03/24 15:28) agitation/severe skin symptoms Assessment & Plan Assessment & Plan (1) Spinal stenosis: Code(s): M48.00 - Spinal stenosis, site unspecified Qualifiers: Spinal region: lumbar Neurogenic claudication status: with neurogenic claudication Qualified Code(s): M48.062 - Spinal stenosis, lumbar region with neurogenic claudication Plan Dear colleague, On February 15, 2024, I saw for follow-up Fabian lopez for ongoing left leg tingling into his foot. The symptoms are there with sitting or after activity. I did a left sided L3-4 and L4-5 lumbar decompression with the understanding that this was not going to be successful due to the underlying degenerative scoliosis. He is not interested in correcting the scoliosis and wants to see if pain management is an option. He had injections done in the past byDr. Cuadra but he prefers to go to another physician. I will refer him to Dr. Alarcon for an evaluation. I spent 15 minutes in this consult. Shin Delgadillo MD, PhD Spine Fellowship Trained Neurosurgeon Director, [facility] Orders: Referrals Physiatry Referral M48.00 - Spinal stenosis, site unspecified Coding Level of Care Code Est Pt Level 2 (60377) Diagnoses Spinal stenosis of lumbar region with neurogenic claudication M48.062 Spinal region: lumbar Neurogenic claudication status: with neurogenic claudication
== END 2024-02-15 14:51 | disposition home or self-care (01) ==
PROVIDERS: PCP Internal Medicine; Visit Provider Neurological Surgery
DX: M48.062 Spinal stenosis, lumbar region with neurogenic claudication (principal)
CPT/HCPCS: 99212

== ENCOUNTER → 2024-02-15 13:48 | Outpatient (BNVA) | payer MEDICARE, SELFPAY | PROVIDERS: PCP Internal Medicine; Visit Provider Neurological Surgery | DX: M48.062 Spinal stenosis, lumbar region with neurogenic claudication (principal) | CPT/HCPCS: 99212 ==

== ENCOUNTER 2024-04-20 11:59 | Outpatient (REF) | payer MEDICARE, SELFPAY ==
[2024-04-20 12:45] LABS: Mean Corpuscular HGB Conc 33.3 g/dl (31.0-36.0); Mean Corpuscular Hemoglobin 29.5 pg (27.0-33.0); Mean Corpuscular Volume 88.6 fL (80.0-98.0); Mean Platelet Volume 10.1 fL (9.4-12.4); Platelet Count 159 X10*3/uL (160-400); Red Blood Count 5.08 X10*6/uL (4.60-5.80); Red Cell Distribution Width 14.4 % (11.0-16.0); White Blood Count 9.5 X10*3/uL (4.8-10.8)
[2024-04-20 13:38] LABS: Prostate Specific Antigen 1.15 ng/mL (<0.05-4.0)
[2024-04-25 20:43] LABS: Testosterone, Total 150 ng/dL (250-1100)
== END 2024-04-20 12:00 | disposition home or self-care (01) ==
LOC: HO.LAB 11:59
PROVIDERS: PCP Internal Medicine; Visit Provider Nurse Practitioner Family
DX: E29.1 Testicular hypofunction (principal); Z12.5 Encounter for screening for malignant neoplasm of prostate
CPT/HCPCS: 36415; 84153; 84402; 84403; 85027; 87086

== ENCOUNTER 2024-04-20 14:07 | Outpatient (REF) | payer MEDICARE, SELFPAY | END 2024-04-20 14:08 | disposition home or self-care (01) | LOC: HO.LNP 14:07 | PROVIDERS: Visit Provider Urology | DX: Z13.89 Encounter for screening for other disorder (principal) | CPT/HCPCS: 87086 ==

== ENCOUNTER 2024-07-16 14:39 | Outpatient (REF) | payer MEDICARE, SELFPAY ==
[2024-07-16 16:01] LABS: Appearance Urine Cloudy; Color Urine Yellow; Glucose Urine UA Negative (Negative); Leukocyte Esterase Urine Large (3+) (Negative); Nitrite Urine Negative (Negative); PH 5.5 (5.0-9.0); Specific Gravity - Urine 1.015 (1.005-1.025); UMIC TRIGGER UA YES; Urine Blood Negative (Negative); Urine Ketones Negative (Negative); Urine Protein 30 (1+) mg/dL (Neg-Trace)
[2024-07-16 16:36] LABS: Bacteria Urine None Seen (None Seen); Hyaline Casts Urine 0-2 /LPF (0-2); RBC Urine 0-2 /HPF (0-2); Squamous Epithelial Cell Urine 0-2 /HPF (0-2); WBC Urine >50 /HPF (0-5)
== END 2024-07-16 14:40 | disposition home or self-care (01) ==
LOC: HO.LAB 14:39
PROVIDERS: PCP Internal Medicine; Visit Provider Nurse Practitioner Family
DX: N39.0 Urinary tract infection, site not specified (principal)
CPT/HCPCS: 81001; 87086

== ENCOUNTER 2024-09-11 07:50 | Outpatient (AMB) | payer MEDICARE, SELFPAY ==
--- NOTE | 2024-09-11 07:58 | A.OFFVIS_ITS ---
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 Required: No Accompanied by: Self / Same As Patient Allergies morphine Allergy (Severe, Verified 09/11/24 08:23) agitation/severe skin symptoms oxycodone Allergy (Severe, Verified 09/11/24 08:23) agitation/severe skin symptoms Medication List - Last Reconciled 09/11/24 by HI Dennis albuterol sulfate 90 mcg/actuation 2 puffs PO Q6H ascorbic acid (vitamin C) 1 g PO DAILY 90 days aspirin (Ecotrin Low Strength) 81 mg PO DAILY blood sugar diagnostic As directed cetirizine 10 mg PO DAILY clotrimazole-betamethasone 1-0.05 % 1 appl topical BID 4 weeks dapagliflozin propanediol (Farxiga) 5 mg PO DAILY diltiazem HCl CD (Cartia XT) 300 mg PO DAILY doxazosin 4 mg PO DAILY finasteride 5 mg PO DAILY fluticasone propionate 50 mcg/actuation 2 sprays intranasal QAM [id number]-[id number] 200-62.5-25 mcg (Trelegy Ellipta) 1 ea inhalation DAILY PRN hydrochlorothiazide 25 mg PO DAILY melatonin 10 mg PO BEDTIME methenamine hippurate 1 g PO DAILY 90 days montelukast 10 mg PO DAILY nitrofurantoin macrocrystal 100 mg PO BID 10 days omeprazole 20 mg PO DAILY oxybutynin chloride ER 10 mg PO DAILY 30 days rosuvastatin 5 mg PO DAILY semaglutide (Ozempic) 2.5 mg subcut QWEEK testosterone 2 pumps topical DAILY 28 days tramadol 50 mg PO Q6H PRN HPI Comments Details: Fabian is a pleasant 79 year old male patient of Dr. Fountain. He has a past medical history of diabetes, peripheral neuropathy, sleep apnea, hypertension, hiatal hernia, diverticulosis, coronary artery disease, asthma, colitis, osteoarthritis, chronic prostatitis, and hypogonadism. He presents to the office today for a follow-up of his hypogonadism, prostatitis, and lower urinary tract symptoms. Of note, patient was seen approximately which time he underwent an office cystoscopy with Dr. Acuna that noted open bladder neck with prior BPH procedure. In discussion with the patient today he reports he had been doing well up until approximately 1 month ago when he was [place] and started experiencing lower urinary tract symptoms at which time he took antibiotics his brother had however did not feel they were helpful therefore he called the office at which time a script for Macrobid was prescribed. He reports to be taking antibiotics as prescribed and is due to finish in 2 days. He reports feeling urinary tract symptoms and or urinary tract infections occur when he holds his urination and or with sexual activity. He also history of balanitis however has not had any issues with this. Discussed obtaining mocrgen for further assessment and evaluation if symptoms persist and or arise. In office urinalysis results reviewed with the patient today. He reports compliance with testosterone, doxazosin, methenamine, vitamin-C, and finasteride as prescribed. We discussed obtaining more recent hypogonadism labs such as CBC, PSA, and testosterone free and total as previous labs were performed in March of this year. He otherwise denies hematuria, foul smelling urine, changes to urinary stream, flank pain, fever, and or chills. PVR 13 mL. He otherwise offers no other issues or concerns at this time. PREVIOUS OFFICE NOTE: Prostatitis/CPPS: They present for evaluation of, chronic prostatitis. He is currently being treated with antibiotics, fluroquinolone. Current symptoms include nocturia Yes incomplete emptying No frequency Yes Symptoms have been present on and off for many years. Laboratory testing included 12/08 [facility] - E.Coli [place] sensitive. Testing included 07/07 RBUS - good emptying, prostate 25 gm 05/09 RBUS - bilateral renal cysts but no stone. 02/09 E coli and Enterococcus Augmentin and fosfomycin sensitive - Bactrim and ciprofloxacin resistant - 11/12 E coli Bactrim and ciprofloxacin resistant Hypogonadism: Reivewed labs Feeling good with testosterone cream on testicles. He presents today for review lab work - wants testosterone cream renewal - E prescribed down to [place] will try scrotal application. Initial symptoms include erectile dysfunction Yes decreased libido Yes change in mood/depression Yes in muscle size/strength Yes increased fatigue/malaise Yes increased abdominal fat No tender breasts/gynecomastia No hair loss No osteopenia No The onset of symptoms has been gradual. Laboratory results 12/08 , testosterone 649, PSA 0.85 07/08 Aveed - PSA 0.85, T 229 12/09 T 217 PSA 0.7 02/06 T 686 05/09 T 170 12/10 PSA 0.4 T 200, 06/09 T 279 PSA 0.15, 09/10 T 244 PSA 0.15, 05/12 T 215 PSA 0.14, 02/10 T 398 P 0.14, 07/13 T 337 P 2.7 Current therapy includes gel/cream exogenous testosterone. Response to therapy has been improved. Therapeutic plan Continue therapy. [facility] Medical History Diabetes Peripheral neuropathy Sleep apnea HTN (hypertension) Hiatal hernia Diverticulosis CAD (coronary artery disease) Asthma Colitis Acute cystitis with hematuria Gross hematuria Rotator cuff impingement syndrome of left shoulder Primary osteoarthritis, left shoulder Poor urinary stream Benign prostatic hyperplasia with lower urinary tract symptoms Chronic prostatitis Hypogonadism in male Surgical History History of back surgery Hx of transurethral resection of prostate Hx of arthroscopy of right knee Hx of shoulder surgery History of esophagogastroduodenoscopy (EGD) H/O colonoscopy History of total knee replacement (TKR) Family History Father No problems noted. Mother No problems noted. Social History Are you a primary medicare coordinator to a significant other at home: No Do you presently have visiting nurse or other home services: No Patient Tobacco Use Status: Former Tobacco user Tobacco use type: Cigarette Review of Systems Const Reports as per HPI Eyes Reports no additional complaints ENT Reports no additional complaints Card Reports as per HPI Resp Reports as per HPI GI Reports as per HPI Reports as per HPI Musc Reports as per HPI Neuro Reports no additional complaints Psych Reports no additional complaints Endo Reports as per HPI Physical Exam Const General: cooperative, comfortable, no acute distress, well developed, alert and awake Orientation/consciousness: patient oriented x3 HEENT Head: Yes normal to inspection, Yes normocephalic and Yes atraumatic Ears: hearing grossly normal bilaterally Eyes General: appearance normal, both eyes and all related structures Neck Neck: Yes normal visual inspection and Yes trachea midline Chest Chest palpation & inspection: normal inspection of the chest Resp Effort & Inspection: normal respiratory effort and able to speak in complete sentences Cardio Rate: regular rate GI Inspection: Yes normal to inspection General: Yes no CVA tenderness Male General Exam: Yes normal external exam Penis: uncircumcised, erythematous and other (as noted in HPI) Meatus: meatus normal Scrotum: scrotum normal Testes: Testes normal Back/Spine/Pelvis Back: no CVA tenderness Skin General skin exam: no rashes or lesions noted Neuro General: patient oriented x3 Extrem General: Yes normal to inspection Psych Appearance: grossly normal and well kempt Mental Status: mental status grossly normal Speech and movement: Normal speech and movement present and Clear speech present Affect: normal affect Attitude: cooperative Thought process: Normal thought process present Thought content: Normal thought content present Insight: Fair insight present (Psych) Judgement: Fair judgement present (Psych) Office Procedures Post Void Residual Post Residual Void Post Void Residual (PVR): 13 [id number] Void Residual by ultrasound Results AMB Urinalysis, Automated UA Leukoctes 70 Filippo/uL Last Edit by Cheryl Araujo on 09/11/24 08:33 UA Nitrite Last Edit by Cheryl Araujo on 09/11/24 08:33 UA Urobilinogen 0.2 mg/dL Last Edit by Cheryl Araujo on 09/11/24 08:33 UA Protein 100 mg/dL Last Edit by Cheryl Araujo on 09/11/24 08:33 UA pH 6.0 Last Edit by Cheryl Araujo on 09/11/24 08:33 UA Blood 0 Jarred/uL Last Edit by Cheryl Araujo on 09/11/24 08:33 UA Specific [place] 1.015 Last Edit by Cheryl Araujo on 09/11/24 08:33 UA Ketone Positive Last Edit by Cheryl Araujo on 09/11/24 08:33 UA Bilirubin 1 mg/dL Last Edit by Cheryl Araujo on 09/11/24 08:33 UA Glucose 0 mg/dL Last Edit by Cheryl Araujo on 09/11/24 08:33 Results Reviewed Results Reviewed: Laboratory Last Values Urine pH (Auto) 6.0 09/11/24 08:31 Specific [place] (Auto) 1.015 09/11/24 08:31 Urine Protein (Auto) 100 mg/dL 09/11/24 08:31 Glucose (UA)(Auto) 0 mg/dL 09/11/24 08:31 Urine Ketones (Auto) Positive 09/11/24 08:31 Urine Blood (Auto) 0 Jarred/uL 09/11/24 08:31 Urine Bilirubin (Auto) 1 mg/dL 09/11/24 08:31 Urine Urobilinogen (Auto) 0.2 mg/dL 09/11/24 08:31 Leukocyte Esterase (Auto) 70 Filippo/uL 09/11/24 08:31 Assessment & Plan Assessment & Plan (1) Hypogonadism in male: Code(s): E29.1 - Testicular hypofunction Category: Medical (2) Proteinuria: Code(s): R80.9 - Proteinuria, unspecified Category: Medical (3) Urinary tract infection: Code(s): N39.0 - Urinary tract infection, site not specified Category: Medical (4) Chronic UTI (urinary tract infection): Code(s): N39.0 - Urinary tract infection, site not specified Category: Medical (5) Prostatitis: Code(s): N41.9 - Inflammatory disease of prostate, unspecified Category: Medical Qualifiers: Prostatitis type: acute Qualified Code(s): N41.0 - Acute prostatitis (6) BPH w urinary obs/LUTS: Code(s): N40.1 - Benign prostatic hyperplasia with lower urinary tract symptoms; N13.8 - Other obstructive and reflux uropathy Category: Medical Plan In office urinalysis results reviewed with the patient today; as noted above. PVR 13ml's. Will refer to Nephrology for proteinuria. We discussed importance of taking medications as prescribed. Discussed near future microgen for further assessment and evaluation. He continue methenamine, vitamin-C, testosterone, doxazosin, and finasteride as prescribed. Will obtain PSA, testosterone free and total, and CBC for further assessment evaluation. We discussed at length potential causes of recurrent urinary tract infections, prostatitis, and lower urinary tract symptoms patient had been experiencing. Follow-up in 1-3 months with labs to be completed prior; or sooner with any issues, concerns, and or questions Orders: Orders Complete Blood Count no Diff Today E29.1 - Testicular hypofunction AMB Post Void Residual by ultrasound Today N39.0 - Urinary tract infection, site not specified Prostate Specific Antigen Today E29.1 - Testicular hypofunction Testosterone, Free/Total Today E29.1 - Testicular hypofunction AMB Urinalysis Automated Today Z13.9 - Encounter for screening, unspecified Referrals Nephrology Referral R80.9 - Proteinuria, unspecified Medications: Discontinued oxybutynin chloride ER Discontinued Reason: Patient Completed Course 10 mg PO DAILY 30 days 30 tabs 1RF N32.81 - Overactive bladder Patient Instructions: The patient had an opportunity to ask questions regarding the treatment plan. All questions were answered. Physical exam, labs, and imaging were discussed and reviewed in detail. As well as risks, benefits, and discussion of treatment choices. No major barriers to understanding were identified. The patient expressed understanding and agreement with the above treatment plan. The patient was made aware they should contact our office by phone for worsening of their current condition, the appearance of new symptoms, or with any questions or concerns. Compliance is encouraged with any medications and follow up testing that is ordered. It is a privilege to be allowed the opportunity to participate in? your urological care.? Again, if you have any questions or concerns If you have any questions or concerns please do not hesitate to contact me. The office is [phone]. This note is constructed using voice recognition software. While every effort has been made to ensure accuracy fire and explosion investigator errors may have been included. Yours sincerely, HI Dennis Coding Level of Care Code Est Pt Level 3 (73303) Complex EM visit Add On G2211 Diagnoses Hypogonadism in male E29.1 Proteinuria R80.9 Urinary tract infection N39.0 Chronic UTI (urinary tract infection) N39.0 Acute prostatitis N41.0 Prostatitis type: acute BPH w urinary obs/LUTS N40.1; N13.8 CPT Codes Post Residual Void - PVR CPT Code: 51386-Fmzd Void Residual by ultrasound ([id number]) Time Spent (min) 25
== END 2024-09-11 08:27 | disposition home or self-care (01) ==
PROVIDERS: PCP Internal Medicine; Visit Provider Nurse Practitioner Family
DX: E29.1 Testicular hypofunction (principal); R80.9 Proteinuria, unspecified; N39.0 Urinary tract infection, site not specified; N41.0 Acute prostatitis; N40.1 Benign prostatic hyperplasia with lower urinary tract symptoms; N13.8 Other obstructive and reflux uropathy; Z13.9 Encounter for screening, unspecified
CPT/HCPCS: 99213; G2211

== ENCOUNTER → 2024-09-11 07:50 | Outpatient (BNVA) | payer MEDICARE, SELFPAY | PROVIDERS: PCP Internal Medicine; Visit Provider Nurse Practitioner Family | DX: E29.1 Testicular hypofunction (principal); N39.0 Urinary tract infection, site not specified; R80.9 Proteinuria, unspecified; N41.0 Acute prostatitis; N40.1 Benign prostatic hyperplasia with lower urinary tract symptoms; N13.8 Other obstructive and reflux uropathy | CPT/HCPCS: 51798; 81003; 99212 ==

== ENCOUNTER 2024-10-07 07:35 | Emergency (ER) | payer MEDICARE, SELFPAY ==
[2024-10-07 07:42] VITALS: BP 133/91; PULSE 101; RESP 19; TEMP 36.9; O2SAT 97; BMI 36.1
--- NOTE | 2024-10-07 08:14 | ED.GENADULT ---
HPI - General Adult General Chief complaint: General Medical Stated complaint: Tick bite Time Seen by Provider: 10/07/24 08:03 Source: patient Mode of arrival: ambulatory Limitations: no limitations History of Present Illness ED Provider: JACKELIN PONCE PA-C HPI narrative: 79 year old male with pmhx significant for diabetes, diabetic neuropathy, asthma, BPH, CAD, HTN, and sleep apnea presents to the ED today for evaluation of redness/swelling to left scapula x1 week. He states he may have gotten bitten by a bug and/or tick. Cannot recall the exact day this happened/ when he first noticed this as he spends every day outside. Believes it occurred within the past week. He is unable to visualize the area as it is on his back. Admits the area is tender. He is unsure if the area has been draining. Also endorses generalized headache and body aches over the last few days. Admits to history of tick bourne illness, treated numerous times in the past by his PCP. Cannot recall the last time he was treated. No other known rashes. Denies fever, chills, N/V. Related Data Home Medications ?Medication ?Instructions ?Recorded ?Confirmed albuterol sulfate 90 mcg/actuation 2 puff PO Q6H 02/27/21 09/11/24 aerosol inhaler blood sugar diagnostic #10 ea 02/27/21 09/11/24 montelukast 10 mg tablet 10 mg PO DAILY 02/27/21 09/11/24 omeprazole 20 mg capsule,delayed 20 mg PO DAILY 02/27/21 09/11/24 release diltiazem HCl 300 mg 300 mg PO DAILY 09/01/21 09/11/24 capsule,extended release 24 hr (Cartia XT) rosuvastatin 5 mg tablet 5 mg PO DAILY 02/03/22 09/11/24 dapagliflozin propanediol 5 mg 5 mg PO DAILY 12/29/22 09/11/24 tablet (Farxiga) aspirin 81 mg tablet,delayed 81 mg PO DAILY 05/18/23 09/11/24 release (Ecotrin Low Strength) cetirizine 10 mg tablet 10 mg PO DAILY 05/18/23 09/11/24 doxazosin 4 mg tablet 4 mg PO DAILY 05/18/23 09/11/24 finasteride 5 mg tablet 5 mg PO DAILY 05/18/23 09/11/24 fluticasone propionate 50 2 spray intranasal QAM 05/18/23 09/11/24 mcg/actuation nasal spray,suspension melatonin 10 mg tablet 10 mg PO BEDTIME 05/18/23 09/11/24 semaglutide 0.25 mg or 0.5 mg (2 2.5 mg subcut QWEEK 05/18/23 09/11/24 mg/3 mL) subcutaneous pen injector (Ozempic) fluticasone fur. 200 mcg-umeclid 1 ea inhalation DAILY PRN acute 05/19/23 09/11/24 62.5 mcg-vilant 25 mcg wheezing inhalat.powder (Trelegy Ellipta) hydrochlorothiazide 25 mg tablet 25 mg PO DAILY 05/23/23 09/11/24 Previous Rx's ?Medication ?Instructions ?Recorded tramadol 50 mg tablet 50 mg PO Q6H PRN pain #30 tabs 06/02/23 clotrimazole-betamethasone 1 1 appl topical BID 4 weeks #45 09/30/23 %-0.05 % topical cream grams methenamine hippurate 1 gram tablet 1 g PO DAILY 90 days #90 tabs 08/24/24 nitrofurantoin macrocrystal 100 mg 100 mg PO BID 10 days #20 caps 08/28/24 capsule testosterone 2 pump topical DAILY 28 days #75 09/14/24 grams ascorbic acid (vitamin C) 1,000 mg 1 g PO DAILY 90 days #90 tabs 09/24/24 tablet cephalexin 750 mg capsule 750 mg PO TID 7 days #21 caps 10/07/24 doxycycline hyclate 100 mg tablet 100 mg PO BID 10 days #20 tabs 10/07/24 Allergies Allergy/AdvReac Type Severity Reaction Status Date / Time morphine Allergy Severe agitation/severe Verified 10/07/24 07:46 skin symptoms oxycodone Allergy Severe agitation/severe Verified 10/07/24 07:46 skin symptoms Review of Systems Review of Systems: Constitutional: No fever, chills, fatigue, night sweats, weight changes ENT/Mouth: No ear pain, hearing loss, nasal congestion, sinus pain, rhinorrhea, sore throat Eyes: No eye pain, swelling, redness, vision changes, discharge Cardio: No chest pain, palpitations, BRITO, orthopnea, peripheral edema Pulm: No SOB, cough, sputum, wheezing, dyspnea, hemoptysis GI: No nausea, vomiting, hematemesis, abdominal pain, diarrhea, constipation, hematochezia, melena : No irregular bleeding, dysuria, frequency, urgency, hesitancy, hematuria, flank pain, urinary flow changes, urinary incontinence or retention MSK: No back pain, neck pain, joint pain, myalgias Skin: No lesions, rashes, +redness/ swelling to scapula Neuro: No weakness, numbness, paresthesias, LOC, dizziness, headache Psych: No anxiety/panic, depression, SI/HI, AH/VH All other systems reviewed and are negative. [facility] Past Medical History Attestation statement: The following information was validated with the patient. Source: old records reviewed and nursing notes reviewed Medical History Diabetes Peripheral neuropathy Sleep apnea HTN (hypertension) Hiatal hernia Diverticulosis CAD (coronary artery disease) Asthma Colitis Acute cystitis with hematuria Gross hematuria Rotator cuff impingement syndrome of left shoulder Primary osteoarthritis, left shoulder Poor urinary stream Benign prostatic hyperplasia with lower urinary tract symptoms Chronic prostatitis Hypogonadism in male Surgical History History of back surgery Hx of transurethral resection of prostate Hx of arthroscopy of right knee Hx of shoulder surgery History of esophagogastroduodenoscopy (EGD) H/O colonoscopy History of total knee replacement (TKR) Family History Family History Father No problems noted. Mother No problems noted. Social History Social History Are you a primary lawn care technician to a significant other at home: No Do you presently have visiting nurse or other home services: No Alcohol intake: current Alcohol intake frequency: a few times a week Patient Tobacco Use Status: Former Tobacco user Tobacco use type: Cigarette Smoked in Last 30 Days: No Use of substances other than those prescribed or required for medical reasons: No Advance Directives: No Advance Directives Information Provided: Yes Do you have a plan to hurt others: No Plan Physical Exam ED Vital Signs: Vital Signs - 24 hr 10/07/24 07:42 10/07/24 08:47 10/07/24 10:13 Temperature 98.5 F 98.1 F 98.1 F Pulse Rate 101 H 99 99 Respiratory Rate 19 18 18 Blood Pressure 133/91 H 166/75 H 166/75 H Pulse Oximetry 97 95 99 Oxygen Delivery Method Room Air Room Air Room Air BMI result Body Mass Index 36.1 Hypertensive, tachycardic, afebrile General: Well appearing, in no acute distress. Skin: refer to photos below Head: Normocephalic, atraumatic. EENT: Hearing is intact b/l. Conjunctiva clear. PERRLA. EOM intact. Moist mucous membranes.? Neck: Supple without LAD Cardiac: Chest wall symmetric. RRR Lungs: Normal respiratory effort without accessory muscle use. CTA bilaterally Abdomen: Soft, non-tender, non-distended. No rebound tenderness or guarding. Positive BS x4. Back: + refer to photos below. 7cm x 7cm area of erythema to left scapula. warm. small area of pointing however no palpable fluctuance. TTP. active tick to right flank w/ surrounding erythema. engorged with blood. No midline spinous or paraspinal tenderness. No step off deformity. Ext: Upper and lower extremities atraumatic, without tenderness, deformity, swelling or erythema. Full ROM throughout. Neuro: AOx3. Normal speech.Ambulating with steady gait. Psych: Appropriate mood and affect. Responds appropriately to questions. Course Course Course Narrative: 1000 -- engorged tick removed completely. patient tolerated well. appears to be dog tick. cbc with leukocytosis to 12 with left shift likely secondary to cellulitic skin infection. normocytic anemia, h&h stable when compared to priors and above transfusion threshold. chemistry without acute electrolyte abnormality requiring intervention. no STEVE. random glucose 127. normal liver function. he tested negative for covid, flu, rsv. tick/ lyme testing pending. > physical exam is concerning for cellulitis. no drainable abscess. marked area of erythema with skin pen. will discharge patient home on 7 days course of keflex and 10 days course of doxy for tick bite. advised patient we will contact him with any positive results from tick testing. Patient has remained stable throughout ED visit today. Discussed worrisome signs and symptoms and when to return to the ED. All questions answered at this time. Patient is agreeable with disposition and stable for discharge. Medications Administered Discontinued Medications Generic Name Dose Route Start Last Admin Trade Name Sixto PRN Reason Stop Dose Admin Ketorolac Tromethamine 30 mg 10/07/24 08:40 10/07/24 08:51 Ketorolac Tromethamine 30 Mg/Ml Vial IM 10/07/24 08:41 30 mg ONCE ONE Administration Medical Decision Making Medical Decision Making [facility] Narrative: 79 year old male with pmhx significant for diabetes, diabetic neuropathy, asthma, BPH, CAD, HTN, and sleep apnea presents to the ED today for evaluation of redness/swelling to left scapula x1 week. Patient hypertensive, tachycardic to 101F. Afebrile. 7cm x 7cm area of erythema to left scapula. warm. small area of pointing however no palpable fluctuance. TTP. active tick to right flank w/ surrounding erythema. engorged with blood. small area of erythema noted to site of tick. no obvious target lesion. I do not have concern for sepsis ([id number]). Differential diagnosis includes cellulitis, tick bourne illness, abscess, anemia, electrolyte abnormality Plan for labs, tick/lyme testing, re-evaluation. Complete tick removal completed - appears to be a dog tick. Differential Diagnosis Differential Diagnoses: The differential diagnosis associated with the presentation includes as above. Admission/Observation Not indicated. Lab Data [facility] Lab Attestation statement: I reviewed the patient's lab results. as above. 10/07/24 08:40 10/07/24 08:40 Labs: Lab Results 10/07/24 10/07/24 Range/Units 08:40 09:07 WBC 12.0 H (4.8-10.8) X10*3/uL RBC 4.39 L (4.60-5.80) X10*6/uL Hgb 13.0 L (14.0-18.0) g/dl Hct 39.2 L (42.0-52.0) % MCV 89.3 (80.0-98.0) fL MCH 29.6 (27.0-33.0) pg MCHC 33.2 (31.0-36.0) g/dl RDW 13.4 (11.0-16.0) % Plt Count 183 (160-400) X10*3/uL MPV 9.7 (9.4-12.4) fL Immature Gran % (Auto) 0.8 H (0.0-0.4) % Neut % (Auto) 80.8 H (45-73) % Lymph % (Auto) 8.9 L (20-40) % [place] % (Auto) 8.3 (2-11) % Eos % (Auto) 0.9 (0-4) % Baso % (Auto) 0.3 (0-2) % Lymph # (Auto) 1.1 L (1.2-4.9) X10*3/uL [place] # (Auto) 1.0 (0.1-1.2) X10*3/uL Eos # (Auto) 0.1 (0.0-0.4) X10*3/uL Baso # (Auto) 0.0 (0.0-0.2) X10*3/uL Abs Immat Gran (auto) 0.10 H (0.00-0.03) X10*3/uL Absolute Neuts (auto) 9.7 H (2.0-8.3) x10*3/uL Absolute Nucleated RBC 0.000 (0.0-0.012) X10*3/uL Nucleated RBC % (auto) 0.0 (0.0-0.2) /100WBC Sodium 136 (135-145) mmol/L Potassium 4.4 (3.3-5.1) mmol/L Chloride 100 (96-108) mmol/L Carbon Dioxide 27 (22-29) mmol/L Anion Gap 13 (12-20) BUN 16 (9-16) mg/dL Creatinine 0.86 (0.5-1.4) mg/dL Estim Creat Clear Calc 88.3 Estimated GFR > 60 Random Glucose 127 H (60-115) mg/dL Calcium 9.2 D (8.4-10.2) mg/dL Total Bilirubin 0.6 (0.0-1.0) mg/dL Direct Bilirubin 0.3 (0.0-0.5) mg/dL AST 21 (5-37) U/L ALT 20 (0-40) U/L Alkaline Phosphatase 70 (39-117) U/L Total Protein 6.8 (6.5-8.0) g/dL Albumin 4.0 (3.5-5.0) g/dL Influenza Type A (PCR) NEGATIVE (Negative) Influenza Type B (PCR) NEGATIVE (Negative) RSV RNA Qual (PCR) NEGATIVE (Negative) SARS-CoV-2 RNA (RT-PCR) NEGATIVE (Negative) External Record Review External record reviewed: Inpatient record Prescription Management I considered prescription management with: Pain Medication (tylenol/ motrin) and Antibiotic (keflex, doxy) Chronic Conditions Patient?s care impacted by: Diabetes Social Determinants Patient?s care significantly limited by Social Determinants of Health including: Other Social Determinant of Health Critical Care Time Critical Care Time Critical Care Time: No Discharge Plan Discharge Clinical Impression: Tick bite of back Cellulitis Qualifiers: Site of cellulitis: trunk Site of cellulitis of trunk: back Qualified Code(s): L03.312 - Cellulitis of back [any part except buttock] Patient Disposition: Home, Self-Care Instructions: Cellulitis (ED), Tick Bite (ED), Warm Compress or Soak (ED) Additional Instructions: You were evaluated in the ED today for possible bug/ tick bite. You have a large area of redness/ swelling to your left upper back, concerning for infection. As discussed, there is no drainable abscess. You were also found to have a live tick on your right lower back. This was removed. Your blood work shows elevated white count which is concerning for infection. Otherwise reassuring. Your blood work was sent out to the lab to assess for tick bourne disease - You will be contacted with any positive results in 3-4 days. Keflex is an antibiotic that has been sent to your pharmacy for treatment. Take this as prescribed for the next 7 days. Doxycycline is another antibiotic that has been sent to your pharmacy for treatment. Take this as prescribed for the next 10 days. The area of redness to your left upper back was marked with skin pen today. If you see the redness moving outside these lines, drainage from the area, fevers, worsening pain, please return to the ED. In the case of an emergency call 911. Prescriptions: New doxycycline hyclate 100 mg tablet 100 mg PO BID 10 Days Qty: 20 0RF cephalexin 750 mg capsule 750 mg PO TID 7 Days Qty: 21 0RF No Action methenamine hippurate 1 gram tablet 1 g PO DAILY 90 Days Qty: 90 1RF nitrofurantoin macrocrystal 100 mg capsule 100 mg PO BID 10 Days Qty: 20 0RF testosterone 20.25 mg/1.25 gram (1.62 %) gel in metered-dose pump 2 pump topical DAILY 28 Days Qty: 75 5RF Rx Instructions: apply 2 pumps total to arms ascorbic acid (vitamin C) 1,000 mg tablet 1 g PO DAILY 90 Days Qty: 90 1RF cetirizine 10 mg tablet 10 mg PO DAILY doxazosin 4 mg Tablet 4 mg PO DAILY fluticasone propionate 50 mcg/actuation spray,suspension 2 spray intranasal QAM finasteride 5 mg tablet 5 mg PO DAILY Ozempic 0.25 mg or 0.5 mg (2 mg/3 mL) pen injector 2.5 mg subcut QWEEK aspirin [Ecotrin Low Strength] 81 mg Tablet,Delayed Release (Dr/Ec) 81 mg PO DAILY melatonin 10 mg Tablet 10 mg PO BEDTIME Trelegy Ellipta 200-62.5-25 mcg blister with device 1 ea inhalation DAILY PRN (Reason: acute wheezing) hydrochlorothiazide 25 mg tablet 25 mg PO DAILY tramadol 50 mg tablet 50 mg PO Q6H PRN (Reason: pain) Qty: 30 0RF diltiazem HCl [Cartia XT] 300 mg capsule,extended release 24hr 300 mg PO DAILY albuterol sulfate 90 mcg/actuation HFA aerosol inhaler 2 puff PO Q6H (DME) blood sugar diagnostic Strip See Rx Instructions Not Applicable BID Qty: 10 Rx Instructions: As directed montelukast 10 mg tablet 10 mg PO DAILY omeprazole 20 mg capsule,delayed release(DR/EC) 20 mg PO DAILY rosuvastatin 5 mg tablet 5 mg PO DAILY Farxiga 5 mg tablet 5 mg PO DAILY clotrimazole-betamethasone 1-0.05 % cream 1 appl topical BID 28 Days Qty: 45 0RF Rx Instructions: Apply thin coat 2 times per day Referrals: Adeel Fuontain MD [Primary Care Provider] - Interventions: ED Discharge Assessment Last Done: 10/07/24 10:13 Discharge Date/Time: 10/07/24 10:14 Print Language: Georgian
[2024-10-07 08:44] LABS: MANUAL DIFF FLAG NO
[2024-10-07 08:47] VITALS: BP 166/75; PULSE 99; RESP 18; TEMP 36.7; O2SAT 95
[2024-10-07 08:47] LABS: Basophils Percent Auto 0.3 % (0-2); Eosinophils Absolute Auto 0.1 X10*3/uL (0.0-0.4); Eosinophils Percent Auto 0.9 % (0-4); Hematocrit 39.2 % (42.0-52.0); Imm Gran Pct Auto 0.8 % (0.0-0.4); Lymphocytes Absolute Auto 1.1 X10*3/uL (1.2-4.9); Lymphocytes Percent Auto 8.9 % (20-40); Mean Corpuscular HGB Conc 33.2 g/dl (31.0-36.0); Mean Corpuscular Hemoglobin 29.6 pg (27.0-33.0); Mean Corpuscular Volume 89.3 fL (80.0-98.0); Mean Platelet Volume 9.7 fL (9.4-12.4); Monocytes Percent Auto 8.3 % (2-11); Neutrophils Absolute Auto 9.7 x10*3/uL (2.0-8.3); Neutrophils Percent Auto 80.8 % (45-73); Platelet Count 183 X10*3/uL (160-400); Red Blood Count 4.39 X10*6/uL (4.60-5.80); Red Cell Distribution Width 13.4 % (11.0-16.0)
[2024-10-07] MEDS: Ketorolac Tromethamine 30 MG/ML VIAL IM (08:51)
[2024-10-07 09:05] LABS: Alanine Aminotransferase 20 U/L (0-40); Alkaline Phosphatase 70 U/L (39-117); Anion Gap 13 (12-20); Aspartate Amino Transferase 21 U/L (5-37); Bilirubin Direct 0.3 mg/dL (0.0-0.5); Bilirubin Total 0.6 mg/dL (0.0-1.0); Blood Urea Nitrogen 16 mg/dL (9-16); Calcium 9.2 mg/dL (8.4-10.2); Carbon Dioxide 27 mmol/L (22-29); Chloride 100 mmol/L (96-108); Creatinine Clr Calc Pharmacy 88.3; Estimated Glomerular Filt Rate > 60; Glucose Random 127 mg/dL (60-115); Potassium 4.4 mmol/L (3.3-5.1); Sodium 136 mmol/L (135-145); Total Protein 6.8 g/dL (6.5-8.0)
[2024-10-07 09:49] LABS: Influenza A PCR NEGATIVE (Negative); Influenza B PCR NEGATIVE (Negative); Resp Syncy Virus RNA Qual PCR NEGATIVE (Negative); SARS COV2 PCR INHOUSE NEGATIVE (Negative)
[2024-10-07 10:13] VITALS: BP 166/75; PULSE 99; RESP 18; TEMP 36.7; O2SAT 99
[2024-10-08 21:39] LABS: Lyme Abs Screen <0.90 index
[2024-10-09 00:23] LABS: A. Phagocytphilium DNA,RT-PCR NOT DETECTED (NOT DETECTED); Babesia Microti DNA, RT-PCR NOT DETECTED (NOT DETECTED); Borrelia Miyamotoi,DNA RT-PCR NOT DETECTED (NOT DETECTED); E.Chaffeensis DNA RT-PCR NOT DETECTED (NOT DETECTED); Lyme(Borrelia ssp)DNA RT-PCR NOT DETECTED (NOT DETECTED)
--- OUTSIDE RECORDS SUMMARY | 2024-10-12 12:27 | XMS_ITS | Continuity of Care Document ---
Author Organization [facility] Address [address] [place] [address]- Care Team Providers Care Aerial Sprayer Name Role Phone Adeel Fountain MD Primary Care Physician [phone] Encounter [facility] Date(s): 07/18/23 - 08/17/23 [facility] [address] [place] [address]- Allergies, Adverse Reactions, Alerts Substance Reaction Severity Status Percocet 5/325 1 makes me feel like pulling skin off Active morphine 2 don't want it Active 1pt feels like taking his skin off when on percocet 2pt feels like taking his skin off when given morphine Immunizations Given and Recorded Vaccine Date Status Refusal Reason [id number] 12y+ bivalent booster vax 12/13/22 Given pneumococcal 20-valent conjugate vaccine 08/06/22 Recorded influenza virus vaccine, inactivated 08/06/22 Goyo rded influenza virus vaccine, inactivated 09/01/21 Goyo rded influenza virus vaccine, inactivated 07/24/20 Goyo rded influenza virus vaccine, inactivated 10/15/19 Give n influenza virus vaccine, inactivated 08/15/18 Goyo rded influenza virus vaccine, inactivated 08/29/17 Goyo rded influenza virus vaccine, inactivated 08/11/17 Goyo rded influenza virus vaccine, inactivated 08/21/16 Goyo rded influenza virus vaccine, inactivated 07/30/16 Goyo rded influenza virus vaccine, inactivated 1, 2 08/23/15 Recorded influenza virus vaccine, inactivated 09/28/14 Goyo rded influenza virus vaccine, inactivated 09/11/14 Goyo rded influenza virus vaccine, inactivated 3 08/06/13 Gi hudson influenza virus vaccine, inactivated 08/04/13 Goyo rded SARS-CoV-2 (COVID-19) mRNA-1273 vaccine 04/30/22 R ecorded SARS-CoV-2 (COVID-19) mRNA-1273 vaccine 11/09/21 R ecorded SARS-CoV-2 (COVID-19) mRNA-1273 vaccine 02/19/21 R ecorded SARS-CoV-2 (COVID-19) mRNA-1273 vaccine 01/22/21 R ecorded SARS-CoV-2 (COVID-19) mRNA-1273 vaccine 01/19/21 R ecorded tetanus/diphtheria/pertussis, acel(Tdap) 07/04/19 Recorded Zoster Vaccine Live 08/21/16 Recorded Zostavax (oldterm) 07/30/16 Given pneumococcal 13-valent vaccine 12/12/14 Given Pneumococcal Vacc (oldterm) 01/17/13 Given FluLaval (oldterm) 4 08/31/11 Given FluLaval (oldterm) 5 09/22/10 Given Tet/Diphth/Acel, Pertussis (oldterm) 04/06/11 Give n Influenza Virus Vaccine (oldterm) 6 08/29/09 Given Influenza Virus Vaccine (oldterm) 10/10/08 Given Influenza Virus Vaccine (oldterm) 7 09/22/07 Given Pneumococcal Vaccine (oldterm) 09/23/06 Given tetanus-diphtheria toxoids (Td) 11/21/00 Given 1Location History: [facility] 2Result Comment: [08/27/2015] HIGH DOSE 3Admin Note: ADRY 4Admin Note: [facility]ical [facility] of [facility] [place] 5Admin Note: BIOMEDICAL JON 6Admin Note: GIVEN BY NATALIE 7Admin Note: given in clinic Medications albuterol 0.083% inhalation solution 3 mL = 2.5 mg, Neb, Once, in office, # 3 mL, 0 Refills, Soft Stop, 02/26/19 11:45:37 EDT Start Date: 02/26/19 Status: Ordered albuterol CFC free 90 mcg/inh inhalation aerosol 2, puffs, Inhalation, Every 6 hours, # 1 each, Refills 11, Tot. Refills 11, Maintenance, 12/21/21 11:37:00 EST, Route to Pharmacy Electronically, [id number], [facility]), 176, cm, 10/26/21 9:28:00 EST, H... Start Date: 12/21/21 Status: Ordered cetirizine 10 mg oral tablet 1 tablet = 10 mg, By Mouth, Daily, # 90 tablet, 3 Refills, Maintenance, 04/20/23 13:44:00 EDT, Tablet, [facility], Partial fill upon patient request if the prescription is for a schedule II opioid drug., 175, cm, 04/12/23 15:36:00 EDT, Height... Start Date: 04/20/23 Status: Ordered Crestor 5 mg oral tablet 1 tablet = 5 mg, By Mouth, Daily, # 90 tablet, 2 Refills, Maintenance, 06/01/23 9:50:00 EDT, Tablet, [facility] # [facility], Partial fill upon patient request if the prescription is for a schedule II opioid drug., 175, cm, 05/09/23 12:38:00 EDT, Height,... Start Date: 06/01/23 Status: Ordered diltiazem 300 mg/24 hours oral capsule, extended release 300 mg, 1, capsule, By Mouth, Daily, # 90 capsule, Refills 3, Tot. Refills 3, Maintenance, 07/26/2311:47:00 EDT, Route to Pharmacy Electronically, [facility], 175, cm, 06/16/23 9:25:00 EDT,Height, 109.6, kg, 05/09/23 12:38:00 EDT, Dry Weight Start Date: 07/26/23 Status: Ordered doxazosin 4 mg oral tablet 1 tablet = 4 mg, By Mouth, Daily, 0 Refills, Maintenance, 01/30/20 9:12:00 EDT Start Date: 01/30/20 Status: Ordered Ecotrin Low Strength Adult 81 mg oral enteric coated tablet 81, mg, 1, tablet, By Mouth, Daily, 0, 0, 09/17/06 2:07:12, Print RENETTA Number, [id number], Constant Indicator Start Date: 09/17/06 Status: Ordered Farxiga 5 mg oral tablet 1 tablet = 5 mg, By Mouth, Daily, # 90 tablet, 3 Refills, Maintenance, 12/13/22 14:14:00 EST, Tablet, [facility], Partial fill upon patient request if the prescription is for a schedule IIopioid drug., 175, cm, 12/13/22 13:50:00 EST, Heigh... Start Date: 12/13/22 Status: Ordered finasteride 5 mg oral tablet 1 tablet = 5 mg, By Mouth, Daily, # 30 tablet, 0 Refills, Maintenance, 07/04/18 10:55:32 EDT, Tablet Start Date: 07/04/18 Status: Ordered Flax Seed Oil 1 tab, By Mouth, Daily, 0 Refills, Maintenance, 07/04/18 10:56:30 EDT Start Date: 07/04/18 Status: Ordered fluticasone 50 mcg/inh nasal spray 2 sprays, Nares, Both, Daily in AM, in each nostril, # 16 Gm, 1 Refills, Maintenance, 02/16/23 10:19:00 EDT, [place], [facility], Partial fill upon patient request if the prescription is fora schedule II opioid drug., 2 sprays Nares, Both Da... Start Date: 02/16/23 Status: Ordered Freestyle Lite Lancets See Instructions, # 100 each, Refills 11, Tot. Refills 11, Maintenance, 90 days DM 2 E11.9 check blood sugar once a day, 08/04/22 15:45:00 EDT, 90 days DM 2 E11.9 check blood sugar once a day, Supply, 175, cm, 08/04/22 15:23:00 EDT, Height, 108, kg, 0... Start Date: 08/04/22 Status: Ordered Freestyle Lite Monitor See Instructions, # 1 each, Maintenance, 90 days DM 2 E11.9 check blood sugar once a day, 04/30/22 15:04:00 EDT, 90 days DM 2 E11.9 check blood sugar once a day, Supply, 175, cm, 02/11/22 2:26:00 EDT, Height, 108, kg, 02/11/22 2:26:00 EDT, Dry Weight Start Date: 04/30/22 Status: Ordered Freestyle Lite Test Strips See Instructions, # 100 each, Refills 11, Tot. Refills 11, Maintenance, 90 days DM 2 E11.9 check blood sugar once a day, 06/16/23 9:37:00 EDT, 90 days DM 2 E11.9 check blood sugar once a day, Supply,175, cm, 06/16/23 9:25:00 EDT, Height, 109.6, kg, 0... Start Date: 06/16/23 Status: Ordered melatonin 10 mg oral capsule 1 capsule = 10 mg, By Mouth, Daily at bedtime, # 60 capsule, 1 Refills, Maintenance, 12/21/21 11:37:00 EST, [facility]), 176, cm, 10/26/21 9:28:00 EST, Height, 110.6, kg, 10/27/20 13:48:00 EST, Dry Weight Start Date: 12/21/21 Status: Ordered Metamucil Powder By Mouth, Daily at bedtime, 0 Refills, Maintenance, 05/08/13 11:48:10 EDT Start Date: 05/08/13 Status: Ordered montelukast 10 mg oral tablet 1, tablet, By Mouth, Daily, # 90 tablet, Refills 1, Tot. Refills 1, 07/04/23 9:32:00 EDT, Route to Pharmacy Electronically, [facility], 175, cm, 06/16/23 9:25:00 EDT, Height, 109.6, kg, 05/09/23 12:38:00 EDT, Dry Weight Start Date: 07/04/23 Status: Ordered omeprazole 20 mg oral enteric coated capsule 1 capsule, By Mouth, Daily, # 90 capsule, 2 Refills, Maintenance, 05/23/23 11:48:00 EDT, [facility], 175, cm, 05/09/23 12:38:00 EDT, Height, 109.6, kg, 05/09/23 12:38:00 EDT, Dry Weight Start Date: 05/23/23 Status: Ordered Ozempic 2 mg/3 mL (0.25 mg or 0.5 mg dose) subcutaneous solution = 0.5 mg, Subcutaneous Injection, Every week, E11.9 diabetes type 2, # 3 mL, 5 Refills, Maintenance, 06/01/23 9:51:00 EDT, [facility], Partial fill upon patient request if the prescription is for a schedule II opioid drug., 175, cm, 05/09/23... Start Date: 06/01/23 Status: Ordered Patient's Own Meds Maintenance, artichoke extract 1 tab daily, 07/04/18 11:15:51 EDT Start Date: 07/04/18 Status: Ordered testosterone 20.25 mg/1.25 g (1.62%) transdermal gel 1 pack/packet, Topically, Daily in AM, apply to clean, dry, intact skin, 0 Refills, Maintenance, 01/29/20 11:14:00 EDT, Gel Start Date: 01/29/20 Status: Ordered Trelegy Ellipta 200 mcg-62.5 mcg-25 mcg/inh inhalation powder 1 puffs, Inhalation, Daily, at the same time every day. REPLACES FLOVENT, # 3 each, 3 Refills, Maintenance, 04/12/23 16:08:00 EDT, Powder, [facility], Partial fill upon patient request if the prescription is for a schedule II opioid drug., 1... Start Date: 04/12/23 Status: Ordered Zestoretic 25 mg-20 mg oral tablet 1 tablet, By Mouth, Daily, # 90 tablet, 3 Refills, Maintenance, 12/21/21 11:36:00 EST, Tablet, [facility] ([place]), 1 tablet By Mouth Daily,x90 days, 176, cm, 10/26/21 9:28:00 EST, Height, 110.6, kg, 10/27/20 13:48:00 EST, Dry Weight Start Date: 12/21/21 Stop Date: 12/16/22 Status: Ordered Problem List Condition Confirmation Course Effective Dates Status Health Status Informant Abnormal liver function tests Confirmed Active Adenomatous polyp of colon Confirmed Active Memory loss Confirmed Active Asthma Confirmed Active Atopic dermatitis Confirmed 02/12/09 Active BPH with urinary obstruction Confirmed Active Chronic gastritis 1 Confirmed Active Chronic Prostatitis Confirmed Active Colonoscopy 2, 3 Confirmed Active Constipation Confirmed Active CAD (coronary artery disease) Confirmed Active Deficiency of testosterone biosynthesis Confirmed Active Epidermoid cyst of left shoulder and mid back Confirmed Active Diverticulosis Confirmed Active Erectile dysfunction Confirmed Active Gastroesophageal reflux disease with hiatal hernia 4, 5 Confirmed Active Hiatal hernia 6 Confirmed Active History of diverticulitis of colon 7 Confirmed Active History of subdural hematoma Confirmed Active History of tobacco abuse Confirmed Active Hypercholesterolemia Confirmed Active Hypertension Confirmed Active Hyperuricemia Confirmed Active Insomnia Confirmed Active Pruritus Confirmed Active Lumbar spondylosis Confirmed Active Night sweats Confirmed Active Obese class I Confirmed Active MICHAEL (obstructive sleep apnea) Confirmed 02/23/10 Active Osteoarthritis Confirmed Active Peripheral neuropathy Confirmed Active Rhinitis Confirmed Active S/P TKR (total knee replacement) 8 Confirmed Active S/P TURP (transurethral resection of prostate) Confirmed Active Left sided sciatica Confirmed Active Thoracic spondylosis Confirmed Active Type 2 diabetes mellitus without complication, with no history of insulin use Confirmed Active 1EGD 2020; repeat 2022 3Colonoscopy 2013 polyp, repeat 2017 4EGD 2014 positive for gastroparesis. 5egd 2003 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 6upper endo 2014 7admitted [facility] 2009 8s/p left tkr 2011 Social History Social History Type Response Smoking Status Former smoker, quit more than 30 days ago; Other: quit in 1989; entered on: 05/09/23 Sex Patient Care team information Care Team Personnel Name: Sujey Pereira RN Position: [facility] RN Member Role: Primary Care Nurse Name: Nickie Calvo RN Position: [facility] RN Member Role: Primary Care Nurse Name: Adeel Dominguez RN Position: [facility] RN Member Role: Primary Care Nurse Name: Tierra Meeks NP Position: Reference Physician Member Role: Primary Care Nurse Address: Address: [address] [place] [phone]- [place] Name: Margo Wilkins NP Position: [facility] Outreach Member Role: Primary Care Nurse Address: Address: [address] [place] [address]- [place] Name: Adeel Fountain MD Position: [facility] Physician - Primary Care Member Role: PCP Address: Address: [address] [place] [phone]- [place] Name: Mindy Santiago RN Position: [facility] RN Member Role: Primary Care Nurse Name: Ramón Olivo MD Position: [facility] Physician - Infectious Disease Member Role: Lifetime Consulting Physician Address: Address: [address] [place] [address] [place] [address]- [place] Care Team Related Persons Name: RICHARD REDDY Address: [address] [address]
--- OUTSIDE RECORDS SUMMARY | 2024-10-12 12:27 | XMS_ITS | Continuity of Care Document ---
Author Organization [facility] Address [address] [place] [address]- Care Team Providers Care Assistant Manager Retail Name Role Phone Adeel Fountain MD Primary Care Physician [place] [facility] [place] 10/27/20 - 11/26/20 [facility] [address] [place] [address]- Attending Physician: Vibha Wallace Admitting Physician: AdmtrVibha Referring Physician: Admtr, Vibha Allergies, Adverse Reactions, Alerts Substance Reaction Severity Status morphine 1 don't want it Active Percocet 5/325 2 makes me feel like pulling skin off Active 1pt feels like taking his skin off when given morphine 2pt feels like taking his skin off when on percocet Immunizations Given and Recorded Vaccine Date Status Refusal Reason influenza virus vaccine, inactivated 10/15/19 Give n influenza virus vaccine, inactivated 08/15/18 Goyo rded influenza virus vaccine, inactivated 08/11/17 Goyo rded influenza virus vaccine, inactivated 07/30/16 Goyo rded influenza virus vaccine, inactivated 1, 2 08/23/15 Recorded influenza virus vaccine, inactivated 09/11/14 Goyo rded influenza virus vaccine, inactivated 3 08/06/13 Gi hudson tetanus/diphtheria/pertussis, acel(Tdap) 07/04/19 Recorded Zostavax (oldterm) 07/30/16 Given pneumococcal 13-valent [...] Note: ADRY 4Admin Note: Biomedical Jon of [facility] [place] 5Admin Note: BIOMEDICAL JON 6Admin Note: GIVEN BY NATALIE 7Admin Note: given in clinic Medications albuterol 0.083% inhalation solution 3 mL = 2.5 mg, Neb, Once, in office, # 3 mL, 0 Refills, Soft Stop, 02/26/19 11:45:37 EDT Start Date: 02/26/19 Status: Ordered albuterol CFC free 90 mcg/inh inhalation aerosol 2, puffs, Inhalation, Every 6 hours, # 1 each, Refills 1, Tot. Refills 1, Maintenance, 02/26/18 9:54:20 EDT, Route to Pharmacy Electronically, [id number], [id number] Start Date: 02/26/18 Status: Ordered CoQ10 = 300 mg, By Mouth, Daily, 0 Refills, Maintenance, 07/04/18 10:56:18 EDT Start Date: 07/04/18 Status: Ordered diltiazem 300 mg/24 hours oral capsule, extended release 300 mg, 1, capsule, By Mouth, Daily, # 90 capsule, Refills 3, Tot. Refills 3, Maintenance, 07/30/2013:43:00 EDT, Do Not Route Start Date: 07/30/20 Status: Ordered doxazosin 4 mg oral tablet 1 tablet = 4 mg, By Mouth, Daily, 0 Refills, Maintenance, 01/30/20 9:12:00 EDT Start Date: 01/30/20 Status: Ordered Ecotrin Low Strength Adult 81 mg oral enteric coated tablet 81, mg, 1, tablet, By Mouth, Daily, 0, 0, 09/17/06 2:07:12, Print RENETTA Number, [id number], Constant Indicator Start Date: 09/17/06 Status: Ordered finasteride 5 mg oral tablet 1 tablet = 5 mg, By Mouth, Daily, # 30 tablet, 0 Refills, Maintenance, 07/04/18 10:55:32 EDT, Tablet Start Date: 07/04/18 Status: Ordered Fish Oil = 1,000 mg, By Mouth, Daily, 0 Refills, Maintenance, 07/04/18 10:56:53 EDT Start Date: 07/04/18 Status: Ordered Flax Seed Oil 1 tab, By Mouth, Daily, 0 Refills, Maintenance, 07/04/18 10:56:30 EDT Start Date: 07/04/18 Status: Ordered Flomax 0.4 mg oral capsule 0.4 mg, 1, capsule, By Mouth, Daily, # 30 capsule, Refills 0, Maintenance, 02/15/17 17:28:48 Start Date: 02/15/17 Status: Ordered Flonase 50 mcg/inh nasal spray 1 sprays, Nares, Both, Daily, # 3 each, 3 Refills, Maintenance, 03/08/18 9:29:57 EDT, 1 sprays Nares, Both Daily Start Date: 03/08/18 Status: Ordered Flovent Diskus 100 mcg/inh inhalation powder 1 puffs, Inhalation, 2 times a day, # 3 each, 3 Refills, Maintenance, 05/06/20 14:07:00 EDT, Powder, [facility], 1 puffs Inhalation 2 times a day,x90 days, 175, cm, 05/06/20 13:45:00 EDT, Height, 113, kg, 01/06/20 13:04:00 EST, Dry Weight Start Date: 05/06/20 Stop Date: 05/01/21 Status: Ordered Lotrisone 0.05%-1% cream 1 application, Topically, 2 times a day, # 45 Gm, 0 Refills, Maintenance, 01/29/20 11:18:00 EDT, Cream, [facility], 1 application Topically 2 times a day, 172, cm, 01/29/20 11:00:00 EDT, Height, 113, kg, 01/06/20 13:04:00 EST, Dry Weight Start Date: 01/29/20 Status: Ordered melatonin 10 mg oral capsule 1 capsule = 10 mg, By Mouth, Daily at bedtime, # 60 capsule, 1 Refills, Maintenance, 08/17/16 17:55:03 Start Date: 08/17/16 Status: Ordered Metamucil Powder By Mouth, Daily at bedtime, 0 Refills, Maintenance, 05/08/13 11:48:10 EDT Start Date: 05/08/13 Status: Ordered metFORMIN 500 mg oral tablet 1 tablet = 500 mg, By Mouth, 2 times a day, # 180 tablet, 3 Refills, Maintenance, 05/06/20 14:05:00EDT, Tablet, [facility], 175, cm, 05/06/20 13:45:00 EDT, Height, 113, kg, 01/06/20 13:04:00 EST, Dry Weight Start Date: 05/06/20 Stop Date: 05/01/21 Status: Ordered omeprazole 20 mg oral enteric coated capsule 1 capsule, By Mouth, Daily, # 90 capsule, 0 Refills, Maintenance, 09/15/20 14:15:00 EDT, [facility], 176, cm, 07/30/20 13:27:00 EDT, Height, 109.1, kg, 06/26/20 20:48:00 EDT, Dry Weight Start Date: 09/15/20 Status: Ordered One Touch Delica Lancets See Instructions, # 100 each, Refills 11, Tot. Refills 11, Maintenance, 1 box = 100 lancets dm2 e11.9 test blood sugar twice a day, 05/06/20 15:34:00 EDT, Supply, 175, cm, 05/06/20 13:45:00 EDT, Height, 113, kg, 01/06/20 13:04:00 EST, Dry Weight Start Date: 05/06/20 Status: Ordered One Touch Ultra 2 Glucose Meter See Instructions, # 1 each, Maintenance, dm 2 e11.9 test blood sugar twice a day, 05/06/20 15:34:00EDT, Supply, 175, cm, 05/06/20 13:45:00 EDT, Height, 113, kg, 01/06/20 13:04:00 EST, Dry Weight Start Date: 05/06/20 Status: Ordered One Touch Ultra Test Strips See Instructions, # 100 each, Refills 11, Tot. Refills 11, Maintenance, dm e 11.9 test blood sugar twice a day, 05/06/20 15:34:00 EDT, Supply, 175, cm, 05/06/20 13:45:00 EDT, Height, 113, kg, 01/06/20 13:04:00 EST, Dry Weight Start Date: 05/06/20 Status: Ordered Patient's Own Meds Maintenance, artichoke extract 1 tab daily, 07/04/18 11:15:51 EDT Start Date: 07/04/18 Status: Ordered Singulair 10 mg oral tablet 10 mg, 1, tablet, By Mouth, Daily, # 90 tablet, Refills 3, Tot. Refills 3, Maintenance, 01/29/20 11:19:00 EDT, Route to Pharmacy Electronically, [facility], 172, cm, 01/29/20 11:00:00 EDT,Height, 113, kg, 01/06/20 13:04:00 EST, Dry Weight Start Date: 01/29/20 Status: Ordered Spine and Sports Spine and Sports, See Instructions, # 20 each, Refills 0, Tot. Refills 0, Maintenance, Eval and treata 20 visits, 12/14/19 11:35:00 EST, Compound Start Date: 12/14/19 Status: Ordered testosterone 20.25 mg/1.25 g (1.62%) transdermal gel 1 pack/packet, Topically, Daily in AM, apply to clean, dry, intact skin, 0 Refills, Maintenance, 01/29/20 11:14:00 EDT, Gel Start Date: 01/29/20 Status: Ordered Vitamin D3 oral tablet 1 tablet = 400 International_Units, By Mouth, Daily, # 30 tablet, 0 Refills, Maintenance, 07/04/18 10:56:05 EDT, Tablet Start Date: 07/04/18 Status: Ordered Zestoretic 25 mg-20 mg oral tablet 1 tablet, By Mouth, Daily, # 90 tablet, 3 Refills, Maintenance, 02/01/14 11:32:02, Tablet, 1 tabletBy Mouth Daily,x90 days Start Date: 02/01/14 Stop Date: 01/27/15 Status: Ordered Problem List Condition Effective Dates Status Health Status Inform ant Abnormal liver function tests(Confirmed) Active Adenomatous polyp of colon(Confirmed) Active Asthma(Confirmed) Active Atopic dermatitis(Confirmed) 02/12/09 Active Body mass index (BMI) of 33. 0-33.9 in adult(Confirmed) Active BPH with urinary obstruction(Confirmed) Active Chronic Prostatitis(Confirmed) Active Colonoscopy(Confirmed) 1, 2 Active Constipation(Confirmed) Active CAD (coronary artery disease)(Confirmed) Active Deficiency of testosterone biosynthesis(Confirmed) Active Epidermoid cyst of left shou lder and mid back(Confirmed) Active Diverticulosis(Confirmed) Active Erectile dysfunction(Confirmed) Active Asthma exacerbation(Confirmed) Active Gastroesophageal reflux dise ase with hiatal hernia(Confirmed) 3, 4 Active Hiatal hernia(Confirmed) 5 Active History of diverticulitis of colon(Confirmed) 6 Active History of tobacco abuse(Confirmed) Active Hypercholesterolemia(Confirmed) Active Hypertension(Confirmed) Active Hyperuricemia(Confirmed) Active Insomnia(Confirmed) Active Pruritus(Confirmed) Active Lumbar spondylosis(Confirmed) Active Night sweats(Confirmed) Active Obesity(Confirmed) Active MICHAEL (obstructive sleep apnea)(Confirmed) 02/23/10 Active Osteoarthritis(Confirmed) Active Peripheral neuropathy(Confirmed) Active Rhinitis(Confirmed) Active S/P TKR (total knee replacement)(Confirmed) 7 Active S/P TURP (transurethral rese ction of prostate)(Confirmed) Active Sleeping difficulty(Confirmed) 05/08/13 Active Acute subdural hematoma(Confirmed) Active Thoracic spondylosis(Confirmed) Active Type 2 diabetes mellitus wit hout complication, with no history of insulin use(Confirmed) Active 20224; repeat 2022 2Colonoscopy 2013 polyp, repeat 2018 3EGD 2014 positive for gastroparesis. 4egd 2003 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 5upper endo 2014 6admitted [facility] 2009 7s/p left tkr 2011 Social History Social History Type Response Smoking Status Former smoker; Other : quit 1989; entered on: 02/26/18 Sex
--- OUTSIDE RECORDS SUMMARY | 2024-10-12 12:27 | XMS_ITS | Continuity of Care Document ---
Author Organization [facility] Zackery lt Address [address] [place] [address]- Care Team Providers Care Professor Of Public Administration Name Role Phone Adeel Fountain MD Primary Care Physician [facility] [facility] [place] 10[place]26[place]21 - 11/02/21 [facility] Adult [address] [place] [address]- Encounter Diagnosis Hypercholesterolemia(Discharge Diagnosis) - 10/26/21 Hypertension(Discharge Diagnosis) - 10/26/21 Obese class II(Discharge Diagnosis) - 10/26/21 Type 2 diabetes mellitus without complication, with no history of insulin use (Discharge Diagnosis) - 10/26/21 Deficiency of testosterone biosynthesis(Discharge Diagnosis) - 10/26/21 Attending Physician: Adeel Fountain MD Allergies, Adverse Reactions, Alerts Substance Reaction Severity Status morphine 1 don't want it Active Percocet 5/325 2 makes me feel like pulling skin off Active 1pt feels like taking his skin off when given morphine 2pt feels like taking his skin off when on percocet Immunizations Given and Recorded Vaccine Date Status Refusal Reason influenza virus vaccine, inactivated 09/01/21 Goyo rded influenza virus vaccine, inactivated 10/15/19 Give n influenza virus vaccine, inactivated 08/15/18 Goyo rded influenza virus vaccine, inactivated 08/11/17 Goyo rded influenza virus vaccine, inactivated 07/30/16 Goyo rded influenza virus vaccine, inactivated 1, 2 08/23/15 Recorded influenza virus vaccine, inactivated 09/11/14 Goyo rded influenza virus vaccine, inactivated 3 08/06/13 Gi hudson SARS-CoV-2 (COVID-19) mRNA-1273 vaccine 02/19/21 R ecorded SARS-CoV-2 (COVID-19) mRNA-1273 vaccine 01/19/21 R ecorded tetanus/diphtheria/pertussis, acel(Tdap) 07/04/19 Recorded Zostavax (oldterm) 07/30/16 [...] 3Admin Note: ADRY 4Admin Note: Biomedical Jon [facility] 5Admin Note: BIOMEDICAL JON 6Admin Note: GIVEN [...] each, Refills 11, Tot. Refills 11, Maintenance, 02/20/21 14:02:00 EDT, Route to Pharmacy Electronically, [id number], [facility], 176, cm, 02/20/21 13:51:00 EDT, Height, 110.... Start Date: 02/20/21 Status: Ordered CoQ10 = 300 mg, By Mouth, Daily, 0 Refills, Maintenance, 07/04/18 10:56:18 EDT Start Date: 07/04/18 Status: Ordered Crestor 5 mg oral tablet 1 tablet = 5 mg, By Mouth, Daily, # 90 tablet, 3 Refills, Maintenance, 10/26/21 9:42:00 EST, Tablet, [facility], Partial fill upon patient request if the prescription is for a schedule II opioid drug., 176, cm, 10/26/21 9:28:00 EST, Height,... Start Date: 10/26/21 Status: Ordered diltiazem 300 mg/24 hours oral [...] 0, 0, 09/17/06 2:07:12, Print RENETTA Number, [id number], Constant Indicator Start Date: 09/17/06 Status: Ordered [...] 10:56:30 EDT Start Date: 07/04/18 Status: Ordered Flonase 50 mcg/inh nasal spray 1 sprays, Nares, Both, Daily, # 3 each, 3 Refills, Maintenance, 03/08/18 9:29:57 EDT, 1 sprays Nares, Both Daily Start Date: 03/08/18 Status: Ordered Flovent Diskus 100 mcg/inh inhalation powder 1 puffs, Inhalation, 2 times a day, # 3 each, 3 Refills, Maintenance, 05/06/20 14:07:00 EDT, Powder, [facility], 1 puffs Inhalation 2 times a day,x90 days, 175, cm, 05/06/20 13:45:00 EDT, Height, 113, kg, 01/06/20 13:04:00 EST, Dry Weight Start Date: 05/06/20 Stop Date: 05/01/21 Status: Ordered melatonin 10 mg oral capsule [...] Date: 05/06/20 Stop Date: 05/01/21 Status: Ordered montelukast 10 mg oral tablet 1, tablet, By Mouth, Daily, # 90 tablet, Refills 3, Tot. Refills 3, 10/26/21 9:41:00 EST, Route to Pharmacy Electronically, [facility], 176, cm, 10/26/21 9:28:00 EST, Height, 110.6, kg, 10/27/20 13:48:00 EST, Dry Weight Start Date: 10/26/21 Status: Ordered omeprazole 20 mg oral enteric coated capsule 1 capsule, By Mouth, Daily, # 90 capsule, 0 Refills, [facility], 176, cm, 08/21/21 14:31:00 EDT, Height, 110.6, kg, 10/27/20 13:48:00 EST, Dry Weight Start Date: 10/06/21 Status: Ordered One Touch Delica Lancets See [...] Dry Weight Start Date: 05/06/20 Status: Ordered OneTouch Ultra Blue In Vitro Strip OneTouch Ultra Blue In Vitro Strip, See Instructions, # 100 each, 11 Refills, USE STRIP TO CHECK GLUCOSE TWICE DAILY, 176, cm, 08/21/21 14:31:00 EDT, Height, 110.6, kg, 10/27/20 13:48:00 EST, Dry Weight Start Date: 09/09/21 Status: Ordered OneTouch Ultra Blue In Vitro Strip OneTouch Ultra Blue In Vitro Strip, See Instructions, # 100 each, 0 Refills, Maintenance, USE STRIPTO CHECK GLUCOSE TWICE DAILY, 176, cm, 04/17/21 9:58:00 EDT, Height, 110.6, kg, 10/27/20 13:48:00 EST, Dry Weight Start Date: 05/27/21 Status: Ordered Patient's Own Meds Maintenance, artichoke extract 1 tab daily, 07/04/18 11:15:51 EDT Start Date: 07/04/18 Status: Ordered Spine and Sports Spine and [...] EDT, Gel Start Date: 01/29/20 Status: Ordered Zestoretic 25 mg-20 mg oral tablet 1 tablet, By Mouth, Daily, # 90 tablet, 3 Refills, Maintenance, 02/01/14 11:32:02, Tablet, 1 tabletBy Mouth Daily,x90 days Start Date: 02/01/14 Stop Date: 01/27/15 Status: Ordered Problem List Condition Effective Dates Status Health Status Inform ant Abnormal liver function tests(Confirmed) Active Adenomatous polyp of colon(Confirmed) Active Asthma(Confirmed) Active Atopic dermatitis(Confirmed) 02/12/09 Active BPH (benign prostatic hyperplasia)(Confirmed) Active Body mass index (BMI) of 33. 0-33.9 in adult(Confirmed) Active BPH with urinary obstruction(Confirmed) Active Chronic gastritis(Confirmed) 1 Active Chronic Prostatitis(Confirmed) Active Colonoscopy(Confirmed) 2, 3 Active Constipation(Confirmed) Active CAD (coronary artery disease)(Confirmed) Active Deficiency of testosterone biosynthesis(Confirmed) Active Epidermoid cyst of left shou lder and mid back(Confirmed) Active Diverticulosis(Confirmed) Active Erectile dysfunction(Confirmed) Active Asthma exacerbation(Confirmed) Active Gastroesophageal reflux dise ase with hiatal hernia(Confirmed) 4, 5 Active Hiatal hernia(Confirmed) 6 Active History of diverticulitis of colon(Confirmed) 7 Active History of tobacco abuse(Confirmed) Active Hypercholesterolemia(Confirmed) Active Hypertension(Confirmed) Active Hyperuricemia(Confirmed) Active Insomnia(Confirmed) Active Pruritus(Confirmed) Active Lumbar spondylosis(Confirmed) Active Night sweats(Confirmed) Active Obese class II(Confirmed) Active Obesity(Confirmed) Active MICHAEL (obstructive sleep apnea)(Confirmed) 02/23/10 Active Osteoarthritis(Confirmed) Active Peripheral neuropathy(Confirmed) Active Rhinitis(Confirmed) Active S/P TKR (total knee replacement)(Confirmed) 8 Active S/P TURP (transurethral rese ction of prostate)(Confirmed) Active Sleeping difficulty(Confirmed) 05/08/13 Active Acute subdural hematoma(Confirmed) Active Thoracic spondylosis(Confirmed) Active Type 2 diabetes mellitus wit hout complication, with no history of insulin use(Confirmed) Active GD 2020; repeat 2022 3Colonoscopy 2012 polyp, repeat 2017 4EGD 2014 positive for gastroparesis. 5egd 2003 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 6upper endo 2014 7admitted [facility] 2009 8s/p left tkr 2011 Diagnosis Diagnosis Type Effective Dates Health Status Clinical Service Informant Hypercholesterolemia Discharge Diagnosis 10/26/21 Hypertension Discharge Diagnosis 10/26/21 Obese class II Discharge Diagnosis 10/26/21 Type 2 diabetes mellitus without complication, with no history of insulin use Discharge Diagnosis 10/26/21 Deficiency of testosterone biosynthesis Discharge Diagnosis 10/26/21 Vital Signs Most recent to oldest [Reference Range]: 1 Height 176 cm (10/26/21 9:28 AM) Weight 110.4 kg (10/26/21 9:28 AM) Oxygen Saturation [94-100 %] 98 % (10/26/21 9:28 AM) Pulse Rate [55-90 bpm] 73 bpm (10/26/21 9:28 AM) Body Mass Index [18.5-24.99] 35.64 *>HHI* (10/26/21 9:28 AM) Blood Pressure [90-138/55-84 mm Hg] 126/ 60mm Hg (10/26/21 9:28 AM) Blood pressure sites Arm, left (10/26/21 9:28 AM) Weight Obtained Via Standing scale (10/26/21 9:28 AM) Social History Social History Type Response Smoking Status Former smoker; Other : quit 1989; entered on: 02/26/18 Sex
--- OUTSIDE RECORDS SUMMARY | 2024-10-12 12:27 | XMS_ITS | Continuity of Care Document ---
Author Organization [facility] Address [address] [id number]- Care Team Providers Care E Tailer Name Role Phone Adeel Fountain MD Primary Care Physician [phone] Encounter [facility] [place] Date(s): 07/15/20 - 08/14/20 [facility] [address] [address]- [place] Attending Physician: Vibha Wallace Admitting Physician: AdmtrVibha Referring Physician: Admtr, Ar8 Allergies, Adverse Reactions, Alerts Substance Reaction Severity [...] 3Admin Note: ADRY 4Admin Note: Biomedical Jon [facility] 5Admin Note: BIOMEDICAL JON 6Admin Note: [...] 02/26/18 9:54:20 EDT, Route to Pharmacy Electronically, [id number], [facility] Start Date: 02/26/18 Status: Ordered [...] 0, 0, 09/17/06 2:07:12, Print RENETTA Number, [id number], Constant Indicator Start Date: 09/17/06 Status: Ordered [...] 3 Refills, Maintenance, 05/06/20 14:07:00 EDT, Powder, [facility], 1 puffs Inhalation 2 times a day,x90 days, 175, cm, 05/06/20 13:45:00 EDT, Height, 113, kg, 01/06/20 13:04:00 EST, Dry Weight Start Date: 05/06/20 Stop Date: 05/01/21 Status: Ordered Lotrisone 0.05%-1% cream 1 application, Topically, 2 times a day, # 45 Gm, 0 Refills, Maintenance, 01/29/20 11:18:00 EDT, Cream, [facility], 1 application Topically 2 times [...] tablet, 3 Refills, Maintenance, 05/06/20 14:05:00EDT, Tablet, [facility], 175, cm, 05/06/20 13:45:00 EDT, Height, 113, kg, 01/06/20 13:04:00 EST, Dry Weight Start Date: 05/06/20 Stop Date: 05/01/21 Status: Ordered omeprazole 20 mg oral enteric coated capsule 1 capsule, By Mouth, Daily, # 90 capsule, 0 Refills, Maintenance, 03/25/20 14:11:00 EDT, [facility], 175, cm, 01/30/20 9:09:00 EDT, Height, 113, kg, 01/06/20 13:04:00 EST, Dry Weight Start Date: 03/25/20 Status: Ordered One Touch Delica Lancets See [...] 01/29/20 11:19:00 EDT, Route to Pharmacy Electronically, [facility], 172, cm, 01/29/20 11:00:00 EDT,Height, [...] with no history of insulin use(Confirmed) Active 27[address]; repeat 2022 2Colonoscopy 2013 polyp, repeat 2018 3EGD 2014 positive for gastroparesis. 4egd 2003 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 5upper endo 2014 6admitted [facility] 2009 7s/p left tkr 2011 Social History Social History Type Response Smoking Status Former smoker; Other : quit 1989; entered on: 02/26/18 Sex
--- OUTSIDE RECORDS SUMMARY | 2024-10-12 12:27 | XMS_ITS | Continuity of Care Document ---
Author Organization [facility] Eric Thapa Zackery lt Address [address] [place] [address]- Care Team Providers Care Bank Operations Officer Name Role Phone Adeel Fountain MD Primary Care Physician Encounter [facility] Date(s): 02/25/20 - 03/26/20 [facility] Eric Farooqley Adult [address] [place] [address]- [facility] Attending Physician: Adeel Fountain MD Allergies, Adverse [...] Note: ADRY 4Admin Note: Biomedical [place] [facility] 5Admin Note: BIOMEDICAL JON 6Admin Note: GIVEN [...] 02/26/18 9:54:20 EDT, Route to Pharmacy Electronically, [id number], [facility] Start Date: 02/26/18 Status: Ordered CoQ10 = 300 mg, By Mouth, Daily, 0 Refills, Maintenance, 07/04/18 10:56:18 EDT Start Date: 07/04/18 Status: Ordered diltiazem 240 mg/24 hours oral capsule, extended release 1 capsule = 240 mg, By Mouth, Daily, # 30 capsule, 11 Refills, Maintenance, CR Capsule Start Date: 02/09/10 Status: Ordered doxazosin 4 mg oral tablet 1 tablet = 4 mg, By Mouth, Daily, 0 Refills, Maintenance, 01/30/20 9:12:00 EDT Start Date: 01/30/20 Status: Ordered Ecotrin Low Strength Adult 81 mg oral enteric coated tablet 81, mg, 1, tablet, By Mouth, Daily, 0, 0, 09/17/06 2:07:12, Print RENETTA Number, [id number], Constant Indicator Start Date: 09/17/06 Status: Ordered [...] Both Daily Start Date: 03/08/18 Status: Ordered Lotrisone 0.05%-1% cream 1 application, Topically, 2 times a day, # 45 Gm, 0 Refills, Maintenance, 01/29/20 11:18:00 EDT, Cream, [facility], 1 application Topically 2 times [...] 11:48:10 EDT Start Date: 05/08/13 Status: Ordered omeprazole 20 mg oral enteric coated capsule 1 capsule, By Mouth, Daily, # 90 capsule, 0 Refills, Maintenance, 03/25/20 14:11:00 EDT, [facility], 175, cm, 01/30/20 9:09:00 EDT, Height, 113, kg, 01/06/20 13:04:00 EST, Dry Weight Start Date: 03/25/20 Status: Ordered Patient's Own Meds Maintenance, artichoke extract 1 tab daily, 07/04/18 11:15:51 EDT Start Date: 07/04/18 Status: Ordered Singulair 10 mg oral tablet 10 mg, 1, tablet, By Mouth, Daily, # 90 tablet, Refills 3, Tot. Refills 3, Maintenance, 01/29/20 11:19:00 EDT, Route to Pharmacy Electronically, [facility], 172, cm, 01/29/20 11:00:00 EDT,Height, [...] History of tobacco abuse(Confirmed) Active Hypercholesterolemia(Confirmed) Active Hyperglycemia(Confirmed) Active Hypertension(Confirmed) Active Hyperuricemia(Confirmed) Active Insomnia(Confirmed) Active Pruritus(Confirmed) Active Lumbar spondylosis(Confirmed) Active Night sweats(Confirmed) Active Obesity(Confirmed) Active MICHAEL (obstructive sleep apnea)(Confirmed) 02/23/10 Active Osteoarthritis(Confirmed) Active Peripheral neuropathy(Confirmed) Active Rhinitis(Confirmed) Active S/P TKR (total knee replacement)(Confirmed) 7 Active S/P TURP (transurethral rese ction of prostate)(Confirmed) Active Sleeping difficulty(Confirmed) 05/08/13 Active Acute subdural hematoma(Confirmed) Active Thoracic spondylosis(Confirmed) Active [address]; repeat 2022 2Colonoscopy 2013 polyp, repeat 2018 3EGD 2014 positive for gastroparesis. 4egd 2003 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 5upper endo 2014 6admitted [facility] 2009 7s/p left tkr 2011 Social History Social History Type Response Smoking Status Former smoker; Other : quit 1989; entered on: 02/26/18 Sex
--- OUTSIDE RECORDS SUMMARY | 2024-10-12 12:27 | XMS_ITS | Continuity of Care Document ---
Author Organization [facility] Zackery lt Address [address] [place] [address]- Care Team Providers Care Ecommerce Marketing Specialist Name Role Phone Adeel Fountain MD Primary Care Physician Encounter [facility] Date(s): 04/07/23 - 05/07/23 [facility] Adult [address] [place] [address]- Allergies, Adverse Reactions, Alerts Substance Reaction Severity Status morphine 1 don't want it Active Percocet 5/325 2 makes me feel like pulling skin off Active 1pt feels like taking his skin off when given morphine 2pt feels like taking his skin off when on percocet Immunizations Given and Recorded Vaccine Date Status Refusal Reason [id number] 12y+ bivalent booster vax 12/13/22 Given pneumococcal [...] Note: ADRY 4Admin Note: Biomedical [place] [facility] 5Admin Note: BIOMEDICAL JON 6Admin Note: GIVEN [...] 12/21/21 11:37:00 EST, Route to Pharmacy Electronically, [id number], [facility]), 176, cm, 10/26/21 9:28:00 EST, H... Start Date: 12/21/21 Status: Ordered cetirizine 10 mg oral tablet 1 tablet = 10 mg, By Mouth, Daily, # 90 tablet, 3 Refills, Maintenance, 04/20/23 13:44:00 EDT, Tablet, [facility], Partial fill upon patient request if the prescription is for a schedule II opioid drug., 175, cm, 04/12/23 15:36:00 EDT, Height... Start Date: 04/20/23 Status: Ordered CoQ10 = 300 mg, By Mouth, Daily, 0 Refills, Maintenance, 07/04/18 10:56:18 EDT Start Date: 07/04/18 Status: Ordered Crestor 5 mg oral tablet 1 tablet = 5 mg, By Mouth, Daily, # 90 tablet, 3 Refills, Maintenance, 02/16/23 10:00:00 EDT, Tablet, [facility], Partial fill upon patient request if the prescription is for a schedule IIopioid drug., 175, cm, 02/16/23 9:32:00 EDT, Height... Start Date: 02/16/23 Status: Ordered diltiazem 300 mg/24 hours oral capsule, extended release 300 mg, 1, capsule, By Mouth, Daily, # 90 capsule, Refills 3, Tot. Refills 3, Maintenance, 04/28/2210:41:00 EDT, Route to Pharmacy Electronically, [facility], 175, cm, 02/11/22 2:26:00 EDT, Height, 108, kg, 02/11/22 2:26:00 EDT, Dry Weight Start Date: 04/28/22 Status: Ordered doxazosin 4 mg oral tablet 1 tablet = 4 mg, By Mouth, Daily, 0 Refills, Maintenance, 01/30/20 9:12:00 EDT Start Date: 01/30/20 Status: Ordered Ecotrin Low Strength Adult 81 mg oral enteric coated tablet 81, mg, 1, tablet, By Mouth, Daily, 0, 0, 09/17/06 2:07:12, Print RENETTA Number, [id number], Constant Indicator Start Date: 10/28/06 Status: Ordered Farxiga 5 mg oral tablet 1 tablet = 5 mg, By Mouth, Daily, # 90 tablet, 3 Refills, Maintenance, 12/13/22 14:14:00 EST, Tablet, [facility], Partial fill upon patient [...] Gm, 1 Refills, Maintenance, 02/16/23 10:19:00 EDT, [place], [facility], Partial fill upon patient [...] kg, 0... Start Date: 08/04/22 Status: Ordered melatonin 10 mg oral capsule 1 capsule = 10 mg, By Mouth, Daily at bedtime, # 60 capsule, 1 Refills, Maintenance, 12/21/21 11:37:00 EST, [facility] 176, cm, 10/26/21 9:28:00 EST, Height, 110.6, kg, 10/27/20 13:48:00 EST, Dry Weight Start Date: 12/21/21 Status: Ordered Metamucil Powder By Mouth, Daily at bedtime, 0 Refills, Maintenance, 05/08/13 11:48:10 EDT Start Date: 05/08/13 Status: Ordered montelukast 10 mg oral tablet 1, tablet, By Mouth, Daily, # 90 tablet, Refills 3, Tot. Refills 3, 03/10/23 10:02:00 EDT, Route toPharmacy Electronically, [facility], 175, cm, 02/16/23 9:32:00 EDT, Height, 108, kg, 02/11/22 2:26:00 EDT, Dry Weight Start Date: 03/10/23 Status: Ordered omeprazole 20 mg oral enteric coated capsule 1 capsule, By Mouth, Daily, # 90 capsule, 3 Refills, Maintenance, 02/16/23 9:59:00 EDT, [facility], 175, cm, 02/16/23 9:32:00 EDT, Height, 108, kg, 02/11/22 2:26:00 EDT, Dry Weight Start Date: 02/16/23 Status: Ordered Ozempic 2 mg/3 mL (0.25 mg or 0.5 mg dose) subcutaneous solution = 0.5 mg, Subcutaneous Injection, Every week, E11.9 diabetes type 2, # 3 mL, 6 Refills, Maintenance, 03/15/23 15:27:00 EDT, [facility], Partial fill upon patient request if the prescription is for a schedule II opioid drug., 175, cm, ... Start Date: 03/15/23 Status: Ordered Patient's Own Meds Maintenance, artichoke [...] 11:36:00 EST, Tablet, [facility]), 1 tablet By Mouth Daily,x90 days, 176, [...] spondylosis Confirmed Active Night sweats Confirmed Active MICHAEL (obstructive sleep apnea) Confirmed 02/23/10 Active Osteoarthritis Confirmed Active Peripheral neuropathy Confirmed Active Rhinitis Confirmed Active S/P TKR (total knee replacement) 8 Confirmed Active S/P TURP (transurethral resection of prostate) Confirmed Active Left sided sciatica Confirmed Active Severe obesity (BMI 35.0-39.9) with comorbidity Confirmed Active Thoracic spondylosis Confirmed Active Type 2 diabetes mellitus without complication, with no history of insulin use Confirmed Active 1EGD 2020 [address]; repeat 2022 3Colonoscopy 2012 polyp, repeat 2017 4EGD 2014 positive for gastroparesis. 5egd 2003 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 6upper endo 2014 7admitted [facility] 2009 8s/p left tkr 2011 Social History Social History Type Response Smoking Status Former smoker; Other : quit 1989; entered on: 02/26/18 Sex Patient Care team information Care Team Personnel Name: Sujey Pereira RN Position: [facility] RN Member Role: Primary Care Nurse Name: Nickie Calvo RN Position: [facility] RN Member Role: Primary Care Nurse Name: Adeel Dominguez RN Position: [facility] RN Member Role: Primary Care Nurse Name: Tierra Meeks NP Position: Reference Physician Member Role: Primary Care Nurse Address: Address: [address] [place] [address]- [place] Name: Margo Wilkins NP Position: [facility] Outreach Member Role: Primary Care Nurse Address: Address: [address] [place] [address]- [place] Name: Adeel Fountain MD Position: [facility] Physician - Primary Care Member Role: PCP Address: Address: [address] [place] [address]- [place] Name: Mindy Santiago RN Position: [facility] RN Member Role: Primary Care Nurse Name: Ramón Olivo MD Position: [facility] Physician - Infectious Disease Member Role: Lifetime Consulting Physician Address: Address: [address] [place] [address] [place] [address]- Care Team Related Persons Name: RICHARD REDDY Address: home [address] [place] [id number]
--- OUTSIDE RECORDS SUMMARY | 2024-10-12 12:27 | XMS_ITS | Continuity of Care Document ---
Author Organization [facility] Eric Thapa Zackery lt Address [address] [place] [address]- Care Team Providers Care Marketing Area Manager Name Role Phone Adeel Fountain MD Primary Care Physician [facility] Date[facility]s): 01/11/20 - 01/18/20 [facility] Eric Farooqley Adult [address] [place] [address]- [facility] Attending Physician: Mau Mcgrath MD Allergies, Adverse Reactions, Alerts Substance Reaction [...] Note: ADRY 4Admin Note: Biomedical Jon of [facility] 5Admin Note: BIOMEDICAL JON 6Admin Note: GIVEN [...] 02/26/18 9:54:20 EDT, Route to Pharmacy Electronically, [id number], [facility] Start Date: 02/26/18 Status: Ordered azithromycin 250 mg oral tablet 1 pack/packet, By Mouth, Once, # 6 tablet, 0 Refills, Soft Stop, 01/11/20 14:45:00 EST, Tablet, [facility], 172, cm, 01/11/20 14:28:00 EST, Height, 113, kg, 01/06/20 13:04:00 EST, Dry Weight Start Date: 01/11/20 Status: Ordered azithromycin 250 mg oral tablet 1 pack/packet, By Mouth, Once, # 6 tablet, 0 Refills, Soft Stop, 01/11/20 14:45:00 EST, Tablet, [facility], 172, cm, 01/11/20 14:28:00 EST, Height, 113, kg, 01/06/20 13:04:00 EST, Dry Weight Start Date: 01/11/20 Status: Ordered CoQ10 = 300 mg, By Mouth, Daily, 0 Refills, Maintenance, 07/04/18 10:56:18 EDT Start Date: 07/04/18 Status: Ordered diltiazem 240 mg/24 hours oral capsule, extended release 1 capsule = 240 mg, By Mouth, Daily, # 30 capsule, 11 Refills, Maintenance, CR Capsule Start Date: 02/09/10 Status: Ordered Ecotrin Low Strength Adult 81 mg oral enteric coated tablet 81, mg, 1, tablet, By Mouth, Daily, 0, 0, 09/17/06 2:07:12, Print RENETTA Number, [id number], Constant Indicator Start Date: 09/17/06 Status: Ordered [...] Daily Start Date: 03/08/18 Status: Ordered Flovent HFA 110 mcg/inh inhalation aerosol 2 puffs, Inhalation, 2 times a day, # 12 Gm, 11 Refills, Maintenance, 12/26/19 10:25:00 EST, Aerosol, [facility], 172, cm, 12/26/19 10:08:00 EST, Height, 113.7, kg, 11/17/18 3:01:00 EST, Dry Weight Start Date: 12/26/19 Status: Ordered Lotrisone 0.05%-1% cream 1 application, Topically, 2 times a day, # 45 Gm, 0 Refills, Maintenance, 12/06/17 8:37:29, Cream, 1 application Topically 2 times a day Start Date: 10/26/17 Status: Ordered melatonin 10 mg oral capsule 1 capsule = 10 mg, By Mouth, Daily at bedtime, # 60 capsule, 1 Refills, Maintenance, 08/17/16 17:55:03 Start Date: 08/17/16 Status: Ordered Metamucil Powder By Mouth, Daily at bedtime, 0 Refills, Maintenance, 05/08/13 11:48:10 EDT Start Date: 05/08/13 Status: Ordered omeprazole 20 mg oral enteric coated capsule See Instructions, # 90 capsule, TAKE 1 CAPSULE BY MOUTH ONCE DAILY, [facility] Start Date: 09/04/19 Status: Ordered Patient's Own Meds Maintenance, artichoke extract 1 tab daily, 07/04/18 11:15:51 EDT Start Date: 07/04/18 Status: Ordered Spine and Sports Spine and Sports, See Instructions, # 20 each, Refills 0, Tot. Refills 0, Maintenance, Eval and treata 20 visits, 12/14/19 11:35:00 EST, Compound Start Date: 12/14/19 Status: Ordered Testosterone Cypionate Inj Intramuscular, every 10 weeks, 0 Refills, Maintenance, 10/11/17 17:27:29 EST Start Date: 10/11/17 Status: Ordered Vitamin D3 oral tablet 1 [...] disease)(Confirmed) Active Deficiency of testosterone biosynthesis(Confirmed) Active Diverticulosis(Confirmed) Active Erectile dysfunction(Confirmed) Active Asthma [...] Acute subdural hematoma(Confirmed) Active Thoracic spondylosis(Confirmed) Active 13788; repeat 2022 2Colonoscopy 2013 polyp, repeat 2018 3EGD 2014 positive for gastroparesis. 4egd 2003 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 [facility] 7[facility] t[facility] 2011 Vital Signs Most recent to oldest [Reference Range]: 1 Height 172 cm (01/11/20 2:28 PM) Weight 115.6 kg (01/11/20 2:28 PM) Oxygen Saturation [94-100 %] 98 % (01/11/20 2:28 PM) Pulse Rate [55-90 bpm] 80 bpm (01/11/20 2:28 PM) Body Mass Index [18.5-24.99] 39.08 *>HHI* (01/11/20 2:28 PM) Blood Pressure [90-138/55-84 mm Hg] 126/ 62mm Hg (01/11/20 2:28 PM) Respiratory Rate [16-30 br/min] 28 br/mi n (01/11/20 2:28 PM) Temperature [96.8-100.4 DegF] 97.6 DegF (01/11/20 2:28 PM) Mode of Delivery (Oxygen) Room air (01/11/20 2:28 PM) Blood pressure sites Arm, left (01/11/20 2:28 PM) Temperature Route Oral (01/11/20 2:28 PM) Weight Obtained Via Standing scale (01/11/20 2:28 PM) Social History Social History Type Response Smoking Status Former smoker; Other : quit 1989; entered on: 02/26/18 Sex
--- OUTSIDE RECORDS SUMMARY | 2024-10-12 12:28 | XMS_ITS | Continuity of Care Document ---
Author Organization [facility] Address [address] [place] [address]- Care Team Providers Care Assurance Senior Manager Name Role Phone Adeel Fountain MD Primary Care Physician [phone] Encounter [facility] Date(s): 08/16/20 - 08/17/[address] [address]- [facility] Encounter Diagnosis Diverticulitis of colon(Final) - 08/17/20 Urinary tract infection(Final) - 08/17/20 Discharge Disposition: A-D/C Home Attending Physician: Isak Augustine MD Admitting Physician: Isak Augustine MD Referring Physician: Not on Staff, Referring MD Allergies, Adverse Reactions, Alerts Substance Reaction [...] Note: ADRY 4Admin Note: Biomedical Jon of [facility] 5Admin Note: BIOMEDICAL JON 6Admin Note: GIVEN [...] 02/26/18 9:54:20 EDT, Route to Pharmacy Electronically, [id number], [facility]278 Start Date: 02/26/18 Status: Ordered Augmentin 875 mg-125 mg oral tablet 1 tablet, By Mouth, Every 12 hours, for 10 days, # 20 tablet, 0 Refills, Acute 08/27/20 5:29:00 EDT, 08/17/20 5:29:00 EDT, Tablet, [facility], 176, cm, 07/30/20 13:27:00 EDT, Height, 109.1, kg, 06/26/20 20:48:00 EDT, Dry Weight Start Date: 08/17/20 Stop Date: 08/27/20 Status: Ordered CoQ10 = 300 mg, By [...] 0, 0, 09/17/06 2:07:12, Print RENETTA Number, [id number], Constant Indicator Start Date: 09/17/06 Status: Ordered [...] 3 Refills, Maintenance, 05/06/20 14:07:00 EDT, Powder, [facility], 1 puffs Inhalation 2 times a day,x90 days, 175, cm, 05/06/20 13:45:00 EDT, Height, 113, kg, 01/06/20 13:04:00 EST, Dry Weight Start Date: 05/06/20 Stop Date: 05/01/21 Status: Ordered Lotrisone 0.05%-1% cream 1 application, Topically, 2 times a day, # 45 Gm, 0 Refills, Maintenance, 01/29/20 11:18:00 EDT, Cream, [facility], 1 application Topically 2 times [...] tablet, 3 Refills, Maintenance, 05/06/20 14:05:00EDT, Tablet, [facility], 175, cm, 05/06/20 13:45:00 EDT, Height, 113, kg, 01/06/20 13:04:00 EST, Dry Weight Start Date: 05/06/20 Stop Date: 05/01/21 Status: Ordered omeprazole 20 mg oral enteric coated capsule 1 capsule, By Mouth, Daily, # 90 capsule, 0 Refills, Maintenance, 03/25/20 14:11:00 EDT, [facility], 175, cm, 01/30/20 9:09:00 [...] 11:19:00 EDT, Route to Pharmacy Electronically, [facility], 172, cm, 01/29/20 11:00:00 [...] with no history of insulin use(Confirmed) Active 47206; repeat 2022 2Colonoscopy 2012 polyp, repeat 2017 3EGD 2014 positive for gastroparesis. 4egd 2003 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 5upper endo 2014 6admitted [facility] 2009 7s/p left tkr 2011 Vital Signs Most recent to oldest [Reference Range]: 1 2 3 Oxygen Saturation [94-100 %] 98 % (08/17/20 6:14 AM) 100 % (08/17/20 4:00 AM) 99 % (08/17/20 2:08 AM) Pulse Rate [55-90 bpm] 62 bpm (08/17/20 6:14 AM) 65 bpm (08/17/20 4:00 AM) 61 bpm (08/17/20 2:08 AM) Blood Pressure [90-138/55-84 mm Hg] 142/58mm Hg *H* (08/17/20 6:14 AM) 129/64mm Hg (08/17/20 4:00 AM) 125/68mm Hg (08/17/20 2:08 AM) Respiratory Rate [16-30 br/min] 19 br/min (08/17/20 6:14 AM) 18 br/min (08/17/20 4:00 AM) 17 br/min (08/17/20 2:08 AM) Temperature [96.8-100.4 DegF] 98.1 DegF (08/17/20 6:14 AM) 97.7 DegF (08/17/20 2:08 AM) 98.2 DegF (08/16/20 11:06 PM) Mode of Delivery (Oxygen) Room air (08/17/20 6:14 AM) Room air (08/17/20 4:00 AM) Room air (08/17/20 2:08 AM) Blood pressure sites Arm, right (08/17/20 6:14 AM) Arm, right (08/17/20 4:00 AM) Arm, right (08/17/20 2:08 AM) Temperature Route Oral (08/17/20 6:14 AM) Oral (08/17/20 2:08 AM) Oral (08/16/20 11:06 PM) Social History Social History Type Response Smoking Status Former smoker; Other : quit 1989; entered on: 02/26/18 Sex
--- OUTSIDE RECORDS SUMMARY | 2024-10-12 12:28 | XMS_ITS | Continuity of Care Document ---
Author Organization [facility] Zackery lt Address [address] [place] [address]- Care Team Providers Care Inspector Machine Parts Name Role Phone Adeel Fountain MD Primary Care Physician [phone] [facility]counter [facility] Date(s): 09/28/22 - 10/05/22 [facility] Adult [address] [place] [address]- Encounter Diagnosis Left hip pain(Discharge Diagnosis) - 09/28/22 Attending Physician: Sera Gordon Referring Physician: Adeel Fountain MD Allergies, Adverse Reactions, Alerts Substance Reaction Severity Status morphine 1 don't want it Active Percocet 5/325 2 makes me feel like pulling skin off Active 1pt feels like taking his skin off when given morphine 2pt feels like taking his skin off when on percocet Immunizations Given and Recorded Vaccine Date Status Refusal Reason pneumococcal 20-valent conjugate vaccine 08/06/22 Recorded influenza [...] 08/06/13 [facility] SARS-CoV-2 (COVID-19) mRNA-1273 vaccine 04/30/22 R ecorded [...] Note: ADRY 4Admin Note: Biomedical Jon of [facility] 5Admin Note: BIOMEDICAL JON 6Admin Note: GIVEN [...] 12/21/21 11:37:00 EST, Route to Pharmacy Electronically, [id number], [facility]), 176, cm, 10/26/21 9:28:00 EST, H... Start Date: 12/21/21 Status: Ordered azithromycin 250 mg oral tablet See Instructions, Take 2 tablets on day 1 and 1 tablet daily for next 4 days, # 6 tablet, 0 Refills, Maintenance, 08/31/22 13:38:00 EDT, Tablet, [facility], Partial fill upon patient request if the prescription is for a schedule II opioid d... Start Date: 08/31/22 Status: Ordered baclofen 10 mg oral tablet 10 mg, 1, tablet, By Mouth, Daily at bedtime, # 14 tablet, Refills 0, Tot. Refills 0, Maintenance, 08/04/22 15:41:00 EDT, Route to Pharmacy Electronically, [facility], Partial fill upon patient request if the prescription is for a schedu... Start Date: 08/04/22 Stop Date: 08/18/22 Status: Ordered CoQ10 = 300 mg, By Mouth, Daily, 0 Refills, Maintenance, 07/04/18 10:56:18 EDT Start Date: 07/04/18 Status: Ordered Crestor 5 mg oral tablet 1 tablet = 5 mg, By Mouth, Daily, # 90 tablet, 3 Refills, Maintenance, 12/21/21 11:37:00 EST, Tablet, [facility] ([facility], Partial fill upon patient request if the prescription is for aschedule II opioid drug., 176, cm, 10/26/21 9:28:00... Start Date: 12/21/21 Status: Ordered diltiazem 300 mg/24 hours oral capsule, extended release 300 mg, 1, capsule, By Mouth, Daily, # 90 capsule, Refills 3, Tot. Refills 3, Maintenance, 04/28/2210:41:00 EDT, Route to Pharmacy Electronically, [facility], 175, cm, 02/11/22 2:26:00 EDT, [...] 0, 0, 09/17/06 2:07:12, Print RENETTA Number, [id number], Constant Indicator Start Date: 09/17/06 Status: Ordered [...] 10:56:30 EDT Start Date: 07/04/18 Status: Ordered Flovent Diskus 100 mcg/inh inhalation powder 1 puffs, Inhalation, 2 times a day, # 3 each, 3 Refills, Maintenance, 12/21/21 11:36:00 EST, Powder, [facility], 1 puffs Inhalation 2 times a day,x90 days, 176, cm, 10/26/21 9:28:00 EST, Height, 110.6, kg, 10/27/20 13:48:00 EST,... Start Date: 12/21/21 Stop Date: 12/16/22 Status: Ordered Freestyle Lite Lancets See Instructions, [...] capsule, 1 Refills, Maintenance, 12/21/21 11:37:00 EST, [facility] ([place]), 176, cm, 10/26/21 9:28:00 EST, Height, 110.6, kg, 10/27/20 13:48:00 EST, Dry Weight Start Date: 12/21/21 Status: Ordered Metamucil Powder By Mouth, Daily at bedtime, 0 Refills, Maintenance, 05/08/13 11:48:10 EDT Start Date: 05/08/13 Status: Ordered metFORMIN 500 mg oral tablet 1 tablet = 500 mg, By Mouth, 2 times a day, # 180 tablet, 1 Refills, Maintenance, 06/13/22 8:47:00 EDT, Tablet, [facility] ([place]), 176, cm, 10/26/21 9:28:00 EST, Height, 110.6, kg, 10/27/20 13:48:00 EST, Dry Weight Start Date: 06/13/22 Stop Date: 12/10/22 Status: Ordered montelukast 10 mg oral tablet 1, tablet, By Mouth, Daily, # 90 tablet, Refills 3, Tot. Refills 3, 12/21/21 11:37:00 EST, Route toPharmacy Electronically, [facility] ([place]), 176, cm, 10/26/21 9:28:00 EST, Height, 110.6, kg, 10/27/20 13:48:00 EST, Dry Weight Start Date: 12/21/21 Status: Ordered omeprazole 20 mg oral enteric coated capsule 1 capsule, By Mouth, Daily, # 90 capsule, 3 Refills, Maintenance, 08/02/22 8:55:00 EDT, [facility], 175, cm, 02/11/22 2:26:00 EDT, Height, 108, kg, 02/11/22 2:26:00 EDT, Dry Weight Start Date: 08/02/22 Status: Ordered One Touch Delica Lancets See Instructions, # 100 each, Refills 5, Tot. Refills 5, Maintenance, 1 box = 100 lancets dm2 e11.9test blood sugar twice a day, 02/15/22 9:16:00 EDT, Supply, 175, cm, 02/11/22 2:26:00 EDT, Height, 108, kg, 02/11/22 2:26:00 EDT, Dry Weight Start Date: 02/15/22 Status: Ordered One Touch Ultra 2 Glucose Meter See Instructions, # 1 each, Maintenance, dm 2 e11.9 test blood sugar twice a day, 05/06/20 15:34:00EDT, Supply, 175, cm, 05/06/20 13:45:00 EDT, Height, 113, kg, 01/06/20 13:04:00 EST, Dry Weight Start Date: 05/06/20 Status: Ordered One Touch Ultra Blue Test Strips One Touch Ultra Blue Test Strips, See Instructions, # 200 each, Refills 11, Tot. Refills 11, Maintenance, ICD-10 E11.9 USE TO CHECK BLOOD SUGARS TWICE A DAY, 08/05/22 14:01:00 EDT, Supply, 175, cm, 08/04/22 15:23:00 EDT, Height, 108, kg, 02/11/22 2:2... Start Date: 08/05/22 Status: Ordered OneTouch Ultra Blue In Vitro [...] 11:36:00 EST, Tablet, [facility] ([place]), 1 tablet By Mouth Daily,x90 days, 176, cm, 10/26/21 9:28:00 EST, Height, 110.6, kg, 10/27/20 13:48:00 EST, Dry Weight Start Date: 12/21/21 Stop Date: 12/16/22 Status: Ordered Problem List Condition Confirmation Course Effective Dates Status Health Status Informant Abnormal liver function tests Confirmed Active Adenomatous polyp of colon Confirmed Active Asthma Confirmed Active Atopic dermatitis Confirmed 02/12/09 Active BPH (benign prostatic hyperplasia) Confirmed Active Body mass index (BMI) of 33.0-33.9 in adult Confirmed Active BPH with urinary obstruction Confirmed Active Chronic gastritis 1 Confirmed Active Chronic Prostatitis Confirmed Active Colonoscopy 2, 3 Confirmed Active Constipation Confirmed Active CAD (coronary artery disease) Confirmed Active Deficiency of testosterone biosynthesis Confirmed Active Epidermoid cyst of left shoulder and mid back Confirmed Active Diverticulosis Confirmed Active Erectile dysfunction Confirmed Active Asthma exacerbation Confirmed Active Gastroesophageal reflux disease with hiatal hernia 4, 5 Confirmed Active Hiatal hernia 6 Confirmed Active History of diverticulitis of colon 7 Confirmed Active History of tobacco abuse Confirmed Active Hypercholesterolemia Confirmed Active Hypertension Confirmed Active Hyperuricemia Confirmed Active Insomnia Confirmed Active Pruritus Confirmed Active Lumbar spondylosis Confirmed Active Night sweats Confirmed Active Obese class II Confirmed Active Obesity Confirmed Active MICHAEL (obstructive sleep apnea) Confirmed 02/23/10 Active Osteoarthritis Confirmed Active Peripheral neuropathy Confirmed Active Rhinitis Confirmed Active S/P TKR (total knee replacement) 8 Confirmed Active S/P TURP (transurethral resection of prostate) Confirmed Active Sleeping difficulty Confirmed 05/08/13 Active Acute subdural hematoma Confirmed Active Thoracic spondylosis Confirmed Active Type 2 diabetes mellitus without complication, with no history of insulin use Confirmed Active 1EGD 2020; repeat 2022 3Colonoscopy 2013 polyp, repeat 2018 4EGD 2014 positive for gastroparesis. 5egd 2003 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 6upper endo 2014 7admitted [facility] 2009 8s/p left tkr 2011 Diagnosis Diagnosis Type Effective Dates Health Status Cl inical Service Informant Left hip pain Discharge Diagnosis 09/28/22 Vital Signs Most recent to oldest [Reference Range]: 1 Height 175 cm (09/28/22 10:09 AM) Weight 107.4 kg (09/28/22 10:09 AM) Oxygen Saturation [94-100 %] 97 % (09/28/22 10:09 AM) Pulse Rate [55-90 bpm] 77 bpm (09/28/22 10:09 AM) Body Mass Index [18.5-24.99 kg/m2] 35.07 kg/m2 *>HHI* (09/28/22 10:09 AM) Blood Pressure [90-138/55-84 mm Hg] 140/ 64mm Hg *H* (09/28/22 10:09 AM) Mode of Delivery (Oxygen) Room air (09/28/22 10:09 AM) Blood pressure sites Arm, right (09/28/22 10:09 AM) Social History Social History Type Response Smoking Status Former smoker; Other : quit 1989; entered on: 02/26/18 Sex Patient Care team information Care Team Personnel Name: Sujey Pereira RN Position: [facility] RN Member Role: Primary Care Nurse Name: Nickie Calvo RN Position: [facility] SN RN Member Role: Primary Care Nurse Name: Adeel Dominguez RN Position: [facility] RN Member Role: Primary Care Nurse Name: Tierra Meeks NP Position: [facility] PCO Associate Professional Member Role: Primary Care Nurse Name: Margo Wilkins NP Position: [facility] Associate Professional Member Role: Primary Care Nurse Address: Address: [address] [place] [address]- [place] Name: Adeel Fountain MD Position: [facility] Primary Care Physician Member Role: PCP Address: Address: [address] [place] [address]- [place] Name: Midny Santiago RN Position: [facility] RN Member Role: Primary Care Nurse Name: Ramón Olivo MD Position: [facility] Infectious Disease MD Member Role: Lifetime Consulting Physician Address: Address: [address] [place] [address] [place] [address]- Care Team Related Persons Name: RICHARD REDDY Address: home [address] [place] [address]
--- OUTSIDE RECORDS SUMMARY | 2024-10-12 12:28 | XMS_ITS | Continuity of Care Document ---
Author Organization [facility] Zackery lt Address [address] [place] [address]- Care Team Providers Care Animal Physiology Teacher Name Role Phone Adeel Fountain MD Primary Care Physician [facility] Date[facility] 06[facility]13[facility]23 - 07/13/23 [facility] Adult [address] [place] [address]- Allergies, Adverse Reactions, Alerts Substance Reaction Severity Status morphine 1 don't want it Active Percocet 5/325 2 makes me feel like pulling skin off Active 1pt feels like taking his skin off when given morphine 2pt feels like taking his skin off when on percocet Immunizations Given and Recorded Vaccine Date Status Refusal Reason [id number] 12y+ bivalent booster vax 12/13/22 Given pneumococcal [...] Note: ADRY 4Admin Note: Biomedical Jon of [facility] 5Admin Note: BIOMEDICAL JON 6Admin Note: GIVEN [...] 12/21/21 11:37:00 EST, Route to Pharmacy Electronically, [id number], [facility]), 176, cm, 10/26/21 9:28:00 EST, H... [...] 2 Refills, Maintenance, 06/01/23 9:50:00 EDT, Tablet, [facility], Partial fill upon patient request if the prescription is for a schedule II opioid drug., 175, cm, 05/09/23 12:38:00 EDT, Height,... Start Date: 06/01/23 Status: Ordered diltiazem 300 mg/24 hours oral capsule, extended release 300 mg, 1, capsule, By Mouth, Daily, # 90 capsule, Refills 3, Tot. Refills 3, Maintenance, 04/28/2210:41:00 EDT, Route to Pharmacy Electronically, [facility], 175, cm, 02/11/22 2:26:00 [...] 0, 0, 09/17/06 2:07:12, Print RENETTA Number, [id number], Constant Indicator Start Date: 09/17/06 Status: Ordered Farxiga 5 mg oral tablet 1 tablet = 5 mg, By Mouth, Daily, # 90 tablet, 3 Refills, Maintenance, 12/13/22 14:14:00 EST, Tablet, [facility], Partial fill upon patient request if the prescription is for a schedule IIopioid drug., 175, cm, 12/13/22 13:50:00 EST, [place]... Start Date: 12/13/22 Status: Ordered finasteride 5 [...] Gm, 1 Refills, Maintenance, 02/16/23 10:19:00 EDT, [place], [facility], Partial fill upon [...] capsule, 1 Refills, Maintenance, 12/21/21 11:37:00 EST, [facility]), 176, cm, 10/26/21 9:28:00 EST, Height, 110.6, kg, 10/27/20 13:48:00 EST, Dry Weight Start Date: 12/21/21 Status: Ordered Metamucil Powder By Mouth, Daily at bedtime, 0 Refills, Maintenance, 05/08/13 11:48:10 EDT Start Date: 05/08/13 Status: Ordered montelukast 10 mg oral tablet 1, tablet, By Mouth, Daily, # 90 tablet, Refills 1, Tot. Refills 1, 07/04/23 9:32:00 EDT, Route to Pharmacy Electronically, [facility], 175, cm, 06/16/23 9:25:00 EDT, Height, 109.6, kg, 05/09/23 12:38:00 EDT, Dry Weight Start Date: 07/04/23 Status: Ordered omeprazole 20 mg oral enteric coated capsule 1 capsule, By Mouth, Daily, # 90 capsule, 2 Refills, Maintenance, 05/23/23 11:48:00 EDT, [facility], 175, cm, 05/09/23 12:38:00 EDT, Height, 109.6, kg, 05/09/23 12:38:00 EDT, Dry Weight Start Date: 05/23/23 Status: Ordered Ozempic 2 mg/3 mL (0.25 mg or 0.5 mg dose) subcutaneous solution = 0.5 mg, Subcutaneous Injection, Every week, E11.9 diabetes type 2, # 3 mL, 5 Refills, Maintenance, 06/01/23 9:51:00 EDT, [facility], Partial fill upon [...] 11:36:00 EST, Tablet, [facility] ([place]), 1 tablet By Mouth Daily,x90 days, 176, [...] Confirmed Active 1EGD 2020; repeat 2022 3Colonoscopy 2012 polyp, repeat 2017 4EGD 2014 positive for gastroparesis. 5egd 2003 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 6upper endo 2014 7admitted [facility] 2009 8s/p left tkr 2011 Social History Social History Type Response Smoking Status Former smoker, quit more than 30 days ago; Other: quit in 1989; entered on: 05/09/23 Sex Patient Care team information Care Team Personnel Name: Sujey Pereira RN Position: [facility] RN Member Role: Primary Care Nurse Name: Nickie Calvo RN Position: [facility] RN Member Role: Primary Care Nurse Name: Adeel Dominguez RN Position: [facility] RN Member Role: Primary Care Nurse Name: Tierra Meeks NP Position: Reference Physician Member Role: Primary Care Nurse Address: Address: [address] [place] [address]- [place] Name: Margo Wilkins NP Position: [facility] Outreach Member Role: Primary Care Nurse Address: Address: [address] [place] [address]- [place] Name: Adeel Fountain MD Position: [facility] Physician - Primary Care Member Role: PCP Address: Address: [address] [place] [phone]- [place] Name: Mindy Santiago RN Position: [facility] RN Member Role: Primary Care Nurse Name: Ramón Olivo MD Position: [facility] Physician - Infectious Disease Member Role: Lifetime Consulting Physician Address: Address: [address] [place] [address] [place] [address]- [place] Care Team Related Persons Name: RICHARD REDDY Address: [address] [address]
--- OUTSIDE RECORDS SUMMARY | 2024-10-12 12:28 | XMS_ITS | Continuity of Care Document ---
Author Organization [facility] Elier Zackery lt Address [address] [place] [address]- Care Team Providers Care Portal Administrator Name Role Phone Adeel Fountain MD Primary Care Physician [phone] [facility] 08/27/23 - 09/26/23 [facility] Adult [address] [place] [address]- Allergies, Adverse Reactions, Alerts Substance Reaction Severity Status Percocet 5/325 1 makes me feel like pulling skin off Active morphine 2 don't want it Active 1pt feels like taking his skin off when on percocet 2pt feels like taking his skin off when given morphine Immunizations Given and Recorded Vaccine Date Status Refusal Reason [id number] 12y+ bivalent booster vax 12/13/22 Given pneumococcal [...] ADRY 4Admin Note: Biomedical Jon of [facility] 5Admin Note: BIOMEDICAL JON 6Admin [...] 12/21/21 11:37:00 EST, Route to Pharmacy Electronically, [id number], [facility]), 176, cm, 10/26/21 9:28:00 EST, H... Start Date: 12/21/21 Status: Ordered cetirizine 10 mg oral tablet 1 tablet = 10 mg, By Mouth, Daily, # 90 tablet, 3 Refills, Maintenance, 04/20/23 13:44:00 EDT, Tablet, [facility] # [facility], Partial fill upon patient request if the prescription is for a schedule II opioid drug., 175, cm, 04/12/23 15:36:00 EDT, Height... Start Date: 04/20/23 Status: Ordered Crestor 5 mg oral tablet 1 tablet = 5 mg, By Mouth, Daily, # 90 tablet, 2 Refills, Maintenance, 06/01/23 9:50:00 EDT, Tablet, [facility] # [facility], Partial fill upon patient request if the prescription is for a schedule II opioid drug., 175, cm, 05/09/23 12:38:00 EDT, Height,... Start Date: 06/01/23 Status: Ordered diltiazem 300 mg/24 hours oral capsule, extended release 300 mg, 1, capsule, By Mouth, Daily, # 90 capsule, Refills 3, Tot. Refills 3, Maintenance, 07/26/2311:47:00 EDT, Route to Pharmacy Electronically, [facility], 175, cm, 06/16/23 9:25:00 [...] 0, 0, 09/17/06 2:07:12, Print RENETTA Number, [id number], Constant Indicator Start Date: 09/17/06 Status: Ordered Farxiga 5 mg oral tablet 1 tablet = 5 mg, By Mouth, Daily, # 90 tablet, 3 Refills, Maintenance, 12/13/22 14:14:00 EST, Tablet, [facility], Partial fill upon [...] Gm, 1 Refills, Maintenance, 02/16/23 10:19:00 EDT, [place], Partial fill upon patient request [...] capsule, 1 Refills, Maintenance, 12/21/21 11:37:00 EST, [facility]), 176, cm, 10/26/21 9:28:00 EST, Height, 110.6, kg, 10/27/20 13:48:00 EST, Dry Weight Start Date: 12/21/21 Status: Ordered Metamucil Powder By Mouth, Daily at bedtime, 0 Refills, Maintenance, 05/08/13 11:48:10 EDT Start Date: 05/08/13 Status: Ordered montelukast 10 mg oral tablet 1, tablet, By Mouth, Daily, # 90 tablet, Refills 1, Tot. Refills 1, 07/04/23 9:32:00 EDT, Route to Pharmacy Electronically, [facility], 175, cm, 06/16/23 9:25:00 EDT, Height, 109.6, kg, 05/09/23 12:38:00 EDT, Dry Weight Start Date: 07/04/23 Status: Ordered omeprazole 20 mg oral enteric coated capsule 1 capsule, By Mouth, Daily, # 90 capsule, 2 Refills, Maintenance, 05/23/23 11:48:00 EDT, [facility] # [facility], 175, cm, 05/09/23 12:38:00 EDT, Height, 109.6, kg, 05/09/23 12:38:00 EDT, Dry Weight Start Date: 05/23/23 Status: Ordered Ozempic 2 mg/3 mL (0.25 mg or 0.5 mg dose) subcutaneous solution = 0.5 mg, Subcutaneous Injection, Every week, E11.9 diabetes type 2, # 3 mL, 5 Refills, Maintenance, 06/01/23 9:51:00 EDT, [facility] # [facility], Partial fill upon patient [...] 11:36:00 EST, Tablet, [facility]), 1 tablet By Mouth Daily,x90 days, 176, [...] 2003 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 6upper endo 2014 7admitted [facility] 2009 8s/p left tkr 2011 Social History Social History Type Response Smoking Status Former smoker, quit more than 30 days ago; Other: quit in 1989; entered on: 05/09/23 Sex Patient Care team information Care Team Personnel Name: Sujey Pereira RN Position: [facility] RN Member Role: Primary Care Nurse Name: Nickie Calvo RN Position: [facility] RN Member Role: Primary Care Nurse Name: Adeel Dominguez RN Position: [facility] RN Member Role: Primary Care Nurse Name: Tierra Meeks NP Position: Reference Physician Member Role: Primary Care Nurse Address: Address: [address] [place] [address]- [place] Name: Margo Wilkins NP Position: [facility] Outreach Member Role: Primary Care Nurse Address: Address: [address] [place] [address]- [place] Name: Adeel Fountain MD Position: [facility] Physician - Primary Care Member Role: PCP Address: Address: [address] [place] [phone]- [place] Name: Mindy Santiago RN Position: [facility] RN Member Role: Primary Care Nurse Name: Ramón Olivo MD Position: [facility] Physician - Infectious Disease Member Role: Lifetime Consulting Physician Address: Address: [address] [place] [address] [place] [address]- Care Team Related Persons Name: RICHARD REDDY Address: home [address] [place] [id number]
--- OUTSIDE RECORDS SUMMARY | 2024-10-12 12:28 | XMS_ITS | Continuity of Care Document ---
Author Organization [facility] Elier Zackery lt Address [address] [place] [address]- Care Team Providers Care Therapeutic Riding Instructor Name Role Phone Adeel Fountain MD Primary Care Physician [phone] [facility] Date[facility]s): 12/16/23 - 01/15/24 [facility] Adult [address] [place] [address]- Allergies, Adverse Reactions, Alerts Substance Reaction Severity Status morphine 1 don't want it Active Percocet 5/325 2 makes me feel like pulling skin off Active 1pt feels like taking his skin off when given morphine 2pt feels like taking his skin off when on percocet Immunizations Given and Recorded Vaccine Date Status Refusal Reason zoster vaccine, inactivated 11/02/23 Recorded RSV vaccine preF3, recombinant 10/05/23 Recorded SARS-CoV-2(COVID-19)mRNA-LNP vac(lug220) 09/22/23 Recorded influenza virus vaccine, inactivated 09/15/23 Goyo rded influenza virus vaccine, inactivated 08/06/22 Goyo rded [...] influenza virus vaccine, inactivated 08/04/13 Goyo rded [id number] 12y+ bivalent booster vax 12/13/22 Given pneumococcal 20-valent conjugate vaccine 08/06/22 Recorded SARS-CoV-2 (COVID-19) mRNA-1273 vaccine 04/30/22 R ecorded [...] Note: ADRY 4Admin Note: Biomedical Jon of [facility] 5Admin Note: BIOMEDICAL JON 6Admin Note: GIVEN BY NATALIE 7Admin Note: given in clinic Medications Actos 45 mg oral tablet 1 tablet = 45 mg, By Mouth, Daily, # 90 tablet, 3 Refills, Maintenance, 09/28/23 9:51:00 EST, Tablet, [facility], Partial fill upon patient request if the prescription is for a schedule II opioid drug., 175, cm, 09/28/23 9:40:00 EST, Height,... Start Date: 09/28/23 Status: Ordered albuterol 0.083% inhalation solution 3 mL = 2.5 mg, Neb, Once, in office, # 3 mL, 0 Refills, Soft Stop, 02/26/19 11:45:37 EDT Start Date: 02/26/19 Status: Ordered albuterol CFC free 90 mcg/inh inhalation aerosol 2, puffs, Inhalation, Every 6 hours, # 1 each, Refills 11, Tot. Refills 11, Maintenance, 12/21/21 11:37:00 EST, Route to Pharmacy Electronically, [id number], [facility]), 176, cm, 10/26/21 9:28:00 EST, H... Start Date: 12/21/21 Status: Ordered cetirizine 10 mg oral tablet 1 tablet = 10 mg, By Mouth, Daily, # 90 tablet, 3 Refills, Maintenance, 04/20/23 13:44:00 EDT, Tablet, [facility] # [facility], Partial fill upon patient request if the prescription is for a schedule II opioid drug., 175, cm, 04/12/23 15:36:00 EDT, Height... Start Date: 04/20/23 Status: Ordered Crestor 5 mg oral tablet 1 tablet = 5 mg, By Mouth, Daily, # 90 tablet, 2 Refills, Maintenance, 06/01/23 9:50:00 EDT, Tablet, [facility] # [facility], Partial fill upon patient request if the prescription is for a schedule II opioid drug., 175, cm, 05/09/23 12:38:00 EDT, Height,... Start Date: 06/01/23 Status: Ordered diltiazem 300 mg/24 hours oral capsule, extended release 300 mg, 1, capsule, By Mouth, Daily, # 90 capsule, Refills 3, Tot. Refills 3, Maintenance, 07/26/2311:47:00 EDT, Route to Pharmacy Electronically, [facility], 175, cm, 06/16/23 9:25:00 [...] 0, 0, 09/17/06 2:07:12, Print RENETTA Number, [id number], Constant Indicator Start Date: 09/17/06 Status: Ordered [...] Gm, 1 Refills, Maintenance, 02/16/23 10:19:00 EDT, [place], [facility], Partial fill upon patient [...] capsule, 1 Refills, Maintenance, 12/21/21 11:37:00 EST, [facility] ([place]), 176, cm, 10/26/21 9:28:00 EST, Height, 110.6, kg, 10/27/20 13:48:00 EST, Dry Weight Start Date: 12/21/21 Status: Ordered Metamucil Powder By Mouth, Daily at bedtime, 0 Refills, Maintenance, 05/08/13 11:48:10 EDT Start Date: 05/08/13 Status: Ordered metFORMIN 1000 mg oral tablet 1 tablet = 1,000 mg, By Mouth, 2 times a day, # 180 tablet, 3 Refills, Maintenance, 09/28/23 9:52:00 EST, Tablet, [facility] # [facility], Partial fill upon patient request if the prescription is for a schedule II opioid drug., 175, cm, 09/28/23 9:40:00 E... Start Date: 09/28/23 Status: Ordered montelukast 10 mg oral tablet 1, tablet, By Mouth, Daily, # 90 tablet, Refills 1, Maintenance, 01/14/24 12:04:00 EST, Route to Pharmacy Electronically, [facility] # [facility], 175, cm, 12/16/23 13:50:00 EST, Height, 109.6, kg, 05/09/23 12:38:00 EDT, Dry Weight Start Date: 01/14/24 Status: Ordered omeprazole 20 mg oral enteric coated capsule 1 capsule, By Mouth, Daily, # 90 capsule, 2 Refills, Maintenance, 05/23/23 11:48:00 EDT, [facility] # [facility], 175, cm, 05/09/23 12:38:00 EDT, Height, 109.6, kg, 05/09/23 12:38:00 EDT, Dry Weight Start Date: 05/23/23 Status: Ordered Ozempic 2 mg/3 mL (0.25 mg or 0.5 mg dose) subcutaneous solution See Instructions, INJECT 0.5MG UNDER THE SKIN ONCE WEEKLY, # 3 mL, 12 Refills, Maintenance, 12/19/23 9:11:00 EST, [facility] # [facility], 175, cm, 12/16/23 13:50:00 EST, Height, 109.6, kg, 05/09/23 12:38:00 EDT, Dry Weight Start Date: 12/19/23 Status: Ordered Patient's Own Meds Maintenance, artichoke [...] 3 Refills, Maintenance, 04/12/23 16:08:00 EDT, Powder, [facility] # [facility], Partial fill upon patient request if the prescription is for a schedule II opioid drug., 1... Start Date: 04/12/23 Status: Ordered Zestoretic 25 mg-20 mg oral tablet 1 tablet, By Mouth, Daily, # 90 tablet, 3 Refills, Maintenance, 12/21/21 11:36:00 EST, Tablet, [facility] ([place]), 1 tablet By Mouth Daily,x90 days, 176, [...] of insulin use Confirmed Active 1EGD 2020 [address]2013; repeat 2022 3Colonoscopy 2013 polyp, repeat 2017 4EGD 2014 positive for gastroparesis. 5egd 2003 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 6upper endo 2014 [address] [facility] 2009 8s/p left tkr 2011 Social History Social History Type Response Smoking Status Former smoker, quit more than 30 days ago; Other: quit in 1989; entered on: 05/09/23 Sex Patient Care team information Care Team Personnel Name: Sujey Pereira RN Position: [facility] RN Member Role: Primary Care Nurse Name: Nickie Calvo RN Position: [facility] RN Member Role: Primary Care Nurse Name: Adeel Dominguez RN Position: [facility] RN Member Role: Primary Care Nurse Name: Tierra Meeks NP Position: Reference Physician Member Role: Primary Care Nurse Address: Address: [address] [place] [address]- Name: Marog Wilkins NP Position: [facility] Outreach Member Role: Primary Care Nurse Address: Address: [address] [place] [address]- [place] Name: Essie CHRISTINA, Adeel Nguyen Position: [facility] Physician - Primary Care Member Role: PCP Address: Address: [address] [place] [phone]- [place] Name: Pamela OTT, Mindy Position: [facility] RN Member Role: Primary Care Nurse Name: Ramón Olivo MD Position: [facility] Physician - Infectious Disease Member Role: Lifetime Consulting Physician Address: Address: [address] [place] [address] [place] [address]- Care Team Related Persons Name: RICHARD REDDY Address: home [address] [place] [address]
--- OUTSIDE RECORDS SUMMARY | 2024-10-12 12:28 | XMS_ITS | Continuity of Care Document ---
Author Organization [facility] Zackery lt Address [address] [place] [address]- Care Team Providers Care Retail Assistant Store Manager Name Role Phone Adeel Fountain MD Primary Care Physician [phone] Encounter [facility] Date(s): 07/30/20 - 08/06/20 [facility] Adult [address] [place] [address]- [facility] Encounter Diagnosis BPH with urinary obstruction(Discharge Diagnosis) - 07/30/20 CAD (coronary artery disease)(Discharge Diagnosis) - 07/30/20 Hypercholesterolemia(Discharge Diagnosis) - 07/30/20 Hypertension(Discharge Diagnosis) - 07/30/20 Attending Physician: Adeel Fountain MD Allergies, Adverse [...] 02/26/18 9:54:20 EDT, Route to Pharmacy Electronically, [id number], [facility] Start Date: 02/26/18 [...] 0, 0, 09/17/06 2:07:12, Print RENETTA Number, [id number], Constant Indicator Start Date: 09/17/06 Status: Ordered [...] 3 Refills, Maintenance, 05/06/20 14:07:00 EDT, Powder, [facility], 1 puffs Inhalation 2 times a day,x90 days, 175, cm, 05/06/20 13:45:00 EDT, Height, 113, kg, 01/06/20 13:04:00 EST, Dry Weight Start Date: 05/06/20 Stop Date: 05/01/21 Status: Ordered Lotrisone 0.05%-1% cream 1 application, Topically, 2 times a day, # 45 Gm, 0 Refills, Maintenance, 01/29/20 11:18:00 EDT, Cream, [facility], 1 application Topically 2 times [...] tablet, 3 Refills, Maintenance, 05/06/20 14:05:00EDT, Tablet, [facility], 175, cm, 05/06/20 13:45:00 EDT, Height, 113, kg, 01/06/20 13:04:00 EST, Dry Weight Start Date: 05/06/20 Stop Date: 05/01/21 Status: Ordered omeprazole 20 mg oral enteric coated capsule 1 capsule, By Mouth, Daily, # 90 capsule, 0 Refills, Maintenance, 03/25/20 14:11:00 EDT, [facility], 175, cm, 01/30/20 [...] 01/29/20 11:19:00 EDT, Route to Pharmacy Electronically, [facility], 172, cm, 01/29/20 [...] with no history of insulin use(Confirmed) Active 41848; repeat 2022 2Colonoscopy 2012 polyp, repeat 2017 3EGD 2014 positive for gastroparesis. 4egd 2003 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 5upper endo 2014 6admitted [facility] 2009 7s/p left tkr 2011 Diagnosis Diagnosis Type Effective Dates Health Status Clinical Service Informant BPH with urinary obstruction Discharge Diagnosis 07/30/20 CAD (coronary artery disease) Discharge Diagnosis 07/30/20 Hypercholesterolemia Discharge Diagnosis 07/30/20 Hypertension Discharge Diagnosis 07/30/20 Vital Signs Most recent to oldest [Reference Range]: 1 Height 176 cm (07/30/20 1:27 PM) Weight 109.7 kg (07/30/20 1:27 PM) Oxygen Saturation [94-100 %] 75 % *L* (07/30/20 1:27 PM) Pulse Rate [55-90 bpm] 75 bpm (07/30/20 1:27 PM) Body Mass Index [18.5-24.99] 35.41 *>HHI* (07/30/20 1:27 PM) Blood Pressure [90-138/55-84 mm Hg] 112/ 72mm Hg (07/30/20 1:27 PM) Mode of Delivery (Oxygen) Room air (07/30/20 1:27 PM) Blood pressure sites Arm, left (07/30/20 1:27 PM) Weight Obtained Via Standing scale (07/30/20 1:27 PM) Social History Social History Type Response Smoking Status Former smoker; Other : quit 1989; entered on: 02/26/18 Sex
--- OUTSIDE RECORDS SUMMARY | 2024-10-12 12:28 | XMS_ITS | Continuity of Care Document ---
Author Organization [facility] Elier Zackery lt Address [address] [place] [address]- Care Team Providers Care Fisher Lobster Name Role Phone Adeel Fountain MD Primary Care Physician Encounter [facility] Date(s): 02/16/23 - 03/18/23 [facility] Adult [address] [place] [address]- Allergies, Adverse Reactions, Alerts Substance Reaction Severity Status morphine 1 don't want it Active Percocet 5/325 2 makes me feel like pulling skin off Active 1pt feels like taking his skin off when given morphine 2pt feels like taking his skin off when on percocet Immunizations Given and Recorded Vaccine Date Status Refusal Reason [id number] 12y+ bivalent booster vax 12/13/22 Given pneumococcal [...] Note: ADRY 4Admin Note: [facility] 5Admin Note: BIOMEDICAL JON 6Admin Note: GIVEN [...] 12/21/21 11:37:00 EST, Route to Pharmacy Electronically, [id number], [facility]), 176, cm, 10/26/21 9:28:00 EST, H... Start Date: 12/21/21 Status: Ordered cetirizine 10 mg oral tablet 1 tablet = 10 mg, By Mouth, Daily, # 30 tablet, 1 Refills, Maintenance, 02/16/23 10:18:00 EDT, Tablet, [facility], Partial fill upon patient request if the prescription is for a schedule II opioid drug., 175, cm, 02/16/23 9:32:00 EDT, [place]... Start Date: 02/16/23 Status: Ordered CoQ10 = 300 mg, By Mouth, Daily, 0 Refills, Maintenance, 07/04/18 10:56:18 EDT Start Date: 07/04/18 Status: Ordered Crestor 5 mg oral tablet 1 tablet = 5 mg, By Mouth, Daily, # 90 tablet, 3 Refills, Maintenance, 02/16/23 10:00:00 EDT, Tablet, [facility], Partial fill upon patient request if the prescription is for a schedule IIopioid drug., 175, cm, 02/16/23 9:32:00 EDT, Height... Start Date: 02/16/23 Status: Ordered diltiazem 300 mg/24 hours oral capsule, extended release 300 mg, 1, capsule, By Mouth, Daily, # 90 capsule, Refills 3, Tot. Refills 3, Maintenance, 04/28/2210:41:00 EDT, Route to Pharmacy Electronically, [facility], 175, cm, 02/11/22 2:26:00 [...] 0, 0, 09/17/06 2:07:12, Print RENETTA Number, [id number], Constant Indicator Start Date: 09/17/06 Status: Ordered Farxiga 5 mg oral tablet 1 tablet = 5 mg, By Mouth, Daily, # 90 tablet, 3 Refills, Maintenance, 12/13/22 14:14:00 EST, Tablet, [facility], Partial fill upon [...] Powder, [facility]), 1 puffs Inhalation 2 times a day,x90 days, 176, cm, 10/26/21 9:28:00 EST, Height, 110.6, kg, 10/27/20 13:48:00 EST,... Start Date: 12/21/21 Stop Date: 12/16/22 Status: Ordered fluticasone 50 mcg/inh nasal spray 2 sprays, Nares, Both, Daily in AM, in each nostril, # 16 Gm, 1 Refills, Maintenance, 02/16/23 10:19:00 EDT, [place], [facility], Partial fill upon [...] capsule, 1 Refills, Maintenance, 12/21/21 11:37:00 EST, [facility]), 176, cm, 10/26/21 9:28:00 EST, Height, 110.6, kg, 10/27/20 13:48:00 EST, Dry Weight Start Date: 12/21/21 Status: Ordered Metamucil Powder By Mouth, Daily at bedtime, 0 Refills, Maintenance, 05/08/13 11:48:10 EDT Start Date: 05/08/13 Status: Ordered montelukast 10 mg oral tablet 1, tablet, By Mouth, Daily, # 90 tablet, Refills 3, Tot. Refills 3, 03/10/23 10:02:00 EDT, Route toPharmacy Electronically, [facility], 175, cm, 02/16/23 9:32:00 EDT, Height, 108, kg, 02/11/22 2:26:00 EDT, Dry Weight Start Date: 03/10/23 Status: Ordered omeprazole 20 mg oral enteric coated capsule 1 capsule, By Mouth, Daily, # 90 capsule, 3 Refills, Maintenance, 02/16/23 9:59:00 EDT, [facility], 175, cm, 02/16/23 9:32:00 EDT, Height, 108, kg, 02/11/22 2:26:00 EDT, Dry Weight Start Date: 02/16/23 Status: Ordered Ozempic 2 mg/3 mL (0.25 mg or 0.5 mg dose) subcutaneous solution = 0.5 mg, Subcutaneous Injection, Every week, E11.9 diabetes type 2, # 3 mL, 6 Refills, Maintenance, 03/15/23 15:27:00 EDT, [facility], Partial fill upon [...] 11:36:00 EST, Tablet, [facility] ([place]), 1 tablet By Mouth Daily,x90 days, 176, [...] 2003 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 6upper endo 2014 7admitted [facility] 2009 8s/p left tkr 2011 Social History Social History Type Response Smoking Status Former smoker; Other : quit 1989; entered on: 02/26/18 Sex Patient Care team information Care Team Personnel Name: Sujey Pereira RN Position: [facility] RN Member Role: Primary Care Nurse Name: Nickie Calvo RN Position: [facility] RN Member Role: Primary Care Nurse Name: Adeel Dominguez RN Position: [facility] RN Member Role: Primary Care Nurse Name: Tierra Meeks NP Position: Reference Physician Member Role: Primary Care Nurse Address: Address: [address] [place] [address]- [place] Name: aMrgo Wilkins NP Position: [facility] Outreach Member Role: Primary Care Nurse Address: Address: [address] [place] [address]- [place] Name: Adeel Fountain MD Position: [facility] Primary Care Physician Member Role: PCP Address: Address: [address] [place] [address]- [place] Name: Mindy Santiago RN Position: [facility] RN Member Role: Primary Care Nurse Name: Ramón Olivo MD Position: [facility] Infectious Disease MD Member Role: Lifetime Consulting Physician Address: Address: [address] [place] [address] [place] [address]- Care Team Related Persons Name: RICHARD REDDY Address: [address] [address]
--- OUTSIDE RECORDS SUMMARY | 2024-10-12 12:28 | XMS_ITS | Continuity of Care Document ---
Author Organization [facility] Elier Zackery lt Address [address] [place] [address]- Care Team Providers Care Block Tester Name Role Phone Adeel Fountain MD Primary Care Physician [phone] Encounter [facility] Date(s): 12/16/23 - 12/23/23 [facility] Adult [address] [place] [address]- Attending Physician: Adeel Fountain MD Allergies, Adverse [...] RSV vaccine preF3, recombinant 10/05/23 Recorded SARS-CoV-2(COVID-19)mRNA-LNP vac([id number]) 09/22/23 Recorded influenza virus vaccine, inactivated 09/15/23 [...] influenza virus vaccine, inactivated 08/04/13 Goyo rded [id number] 12y+ bivalent booster vax 12/13/22 Given pneumococcal [...] Note: ADRY 4Admin Note: Biomedical Jon of [facility] 5Admin Note: BIOMEDICAL JON [...] 12/21/21 11:37:00 EST, Route to Pharmacy Electronically, [id number], [facility], 176, cm, 10/26/21 9:28:00 EST, H... Start Date: 12/21/21 Status: Ordered cetirizine 10 mg oral tablet 1 tablet = 10 mg, By Mouth, Daily, # 90 tablet, 3 Refills, Maintenance, 04/20/23 13:44:00 EDT, Tablet, [facility], Partial fill upon patient request if the prescription is for a schedule II opioid drug., 175, cm, 04/12/23 15:36:00 EDT, Height... Start Date: 04/20/23 Status: Ordered Cipro 500 mg oral tablet 1 tablet = 500 mg, By Mouth, Every 12 hours, for 10 days, # 20 tablet, 0 Refills, Acute 12/26/23 13:43:00 EST, 12/16/23 13:43:00 EST, Tablet, [facility], Partial fill upon patient request ifthe prescription is for a schedule II opioid drug.,... Start Date: 12/16/23 Stop Date: 12/26/23 Status: Ordered Crestor 5 mg oral tablet 1 tablet = 5 mg, By Mouth, Daily, # 90 tablet, 2 Refills, Maintenance, 06/01/23 9:50:00 EDT, Tablet, [facility], Partial fill upon patient request if the prescription is for a schedule II opioid drug., 175, cm, 05/09/23 12:38:00 EDT, Height,... Start Date: 06/01/23 Status: Ordered diltiazem 300 mg/24 hours oral capsule, extended release 300 mg, 1, capsule, By Mouth, Daily, # 90 capsule, Refills 3, Tot. Refills 3, Maintenance, 07/26/2311:47:00 EDT, Route to Pharmacy Electronically, [facility], 175, cm, 06/16/23 9:25:00 [...] 0, 0, 09/17/06 2:07:12, Print RENETTA Number, [id number], Constant Indicator Start Date: 09/17/06 Status: Ordered [...] Gm, 1 Refills, Maintenance, 02/16/23 10:19:00 EDT, [place], [facility], Partial fill upon patient request [...] 12/21/21 11:37:00 EST, [facility]), 176, cm, 10/26/21 9:28:00 EST, Height, 110.6, kg, 10/27/20 13:48:00 EST, Dry Weight Start Date: 12/21/21 Status: Ordered Metamucil Powder By Mouth, Daily at bedtime, 0 Refills, Maintenance, 05/08/13 11:48:10 EDT Start Date: 05/08/13 Status: Ordered metFORMIN 1000 mg oral tablet 1 tablet = 1,000 mg, By Mouth, 2 times a day, # 180 tablet, 3 Refills, Maintenance, 09/28/23 9:52:00 EST, Tablet, [facility], [...] mL, 12 Refills, Maintenance, 12/19/23 9:11:00 EST, [facility], 175, cm, 12/16/23 [...] 3 Refills, Maintenance, 04/12/23 16:08:00 EDT, Powder, [facility] # [facility], Partial fill upon patient request if the prescription is for a schedule II opioid drug., 1... Start Date: 04/12/23 Status: Ordered Zestoretic 25 mg-20 mg oral tablet 1 tablet, By Mouth, Daily, # 90 tablet, 3 Refills, Maintenance, 12/21/21 11:36:00 EST, Tablet, [facility] ([place]), 1 tablet By Mouth Daily,x90 days, 176, [...] history of insulin use Confirmed Active 1EGD 202018; repeat 2022 3Colonoscopy 2013 polyp, repeat 2017 4EGD 2014 positive for gastroparesis. 5egd 2003 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 6upper endo 2014 7admitted [facility] 2009 8s/p left tkr 2011 Vital Signs Most recent to oldest [Reference Range]: 1 2 3 Height 175 cm (12/16/23 1:50 PM) 175 cm (12/16/23 1:30 PM) 175 cm (12/16/23 1:17 PM) Weight 110.4 kg (12/16/23 1:17 PM) Oxygen Saturation [94-100 %] 97 % (12/16/23 1:17 PM) Pulse Rate [55-90 bpm] 87 bpm (12/16/23 1:17 PM) Body Mass Index [18.5-24.99 kg/m2] 36.05 kg/m2 *>HHI* (12/16/23 1:17 PM) Blood Pressure [90-138/55-84 mm Hg] 138/70mm Hg (12/16/23 1:50 PM) 151/64mm Hg *H* (12/16/23 1:30 PM) 146/64mm Hg *H* (12/16/23 1:17 PM) Mode of Delivery (Oxygen) Room air (12/16/23 1:17 PM) Blood pressure sites Arm, left (12/16/23 1:30 PM) Arm, left (12/16/23 1:17 PM) Weight Obtained Via Standing scale (12/16/23 1:17 PM) Social History Social History Type Response Smoking Status Former smoker, quit more than 30 days ago; Other: quit in 1989; entered on: 05/09/23 Sex Patient Care team information Care Team Personnel Name: Sujey Pereira RN Position: [facility] RN Member Role: Primary Care Nurse Name: Nickie Calvo RN Position: [facility] RN Member Role: Primary Care Nurse Name: Adeel Dominguez RN Position: [facility] RN Member Role: Primary Care Nurse Name: Tierra Meeks NP Position: Reference Physician Member Role: Primary Care Nurse Address: Address: [address] [place] [address]- [place] Name: Margo Wilkins NP Position: [facility] Outreach Member Role: Primary Care Nurse Address: Address: [address] [place] [address]- [place] Name: Adeel Fountain MD Position: [facility] Physician - Primary Care Member Role: PCP Address: Address: [address] [place] [address]- [place] Name: Mindy Santiago RN Position: [facility] RN Member Role: Primary Care Nurse Name: Ramón Olivo MD Position: [facility] Physician - Infectious Disease Member Role: Lifetime Consulting Physician Address: Address: [address] [place] [address] [place] [address]- Care Team Related Persons Name: RICHARD REDDY Address: home [address] [place], [place] [address] [address]
--- OUTSIDE RECORDS SUMMARY | 2024-10-12 12:28 | XMS_ITS | Continuity of Care Document ---
Author Organization [facility] Address [address] [place] [address]- Care Team Providers Care Bladder Cleaner Name Role Phone Adeel Fountain MD Primary Care Physician [facility] Date[facility] 05/09[facility]23 - 06/08/23 [facility] [address] [place], [place] [address] Attending Physician: Vibha Wallace Admitting Physician: AdmVibha fish Referring Physician: Admtr, Vibah Allergies, Adverse Reactions, Alerts Substance Reaction Severity Status Percocet 5/325 1 makes me feel like pulling skin off Active morphine 2 don't want it Active 1pt feels like taking his skin off when on percocet 2pt feels like taking his skin off when given morphine Immunizations Given and Recorded Vaccine Date Status Refusal Reason [id number] 12y+ bivalent booster vax 12/13/22 Given pneumococcal [...] 4Admin Note: [facility]ical Jon of [facility] 5Admin Note: BIOMEDICAL JON [...] 12/21/21 11:37:00 EST, Route to Pharmacy Electronically, [id number], [facility] ([place]), 176, cm, 10/26/21 9:28:00 EST, H... Start [...] 2 Refills, Maintenance, 06/01/23 9:50:00 EDT, Tablet, [facility], Partial fill upon patient request if the prescription is for a schedule II opioid drug., 175, cm, 05/09/23 12:38:00 EDT, Height,... Start Date: 06/01/23 Status: Ordered diltiazem 300 mg/24 hours oral capsule, extended release 300 mg, 1, capsule, By Mouth, Daily, # 90 capsule, Refills 3, Tot. Refills 3, Maintenance, 04/28/2210:41:00 EDT, Route to Pharmacy Electronically, [facility], 175, cm, 02/11/22 [...] 0, 0, 09/17/06 2:07:12, Print RENETTA Number, [id number], Constant Indicator Start Date: 09/17/06 Status: Ordered Farxiga 5 mg oral tablet 1 tablet = 5 mg, By Mouth, Daily, # 90 tablet, 3 Refills, Maintenance, 12/13/22 14:14:00 EST, Tablet, [facility], Partial fill upon [...] Gm, 1 Refills, Maintenance, 02/16/23 10:19:00 EDT, [place], [facility], Partial fill upon [...] 12/21/21 11:37:00 EST, [facility]), 176, cm, 10/26/21 9:28:00 EST, Height, 110.6, kg, 10/27/20 13:48:00 EST, Dry Weight Start Date: 12/21/21 Status: Ordered Metamucil Powder By Mouth, Daily at bedtime, 0 Refills, Maintenance, 05/08/13 11:48:10 EDT Start Date: 05/08/13 Status: Ordered montelukast 10 mg oral tablet 1, tablet, By Mouth, Daily, # 90 tablet, Refills 3, Tot. Refills 3, 03/10/23 10:02:00 EDT, Route toPharmacy Electronically, [facility], 175, cm, 02/16/23 9:32:00 EDT, Height, 108, kg, 02/11/22 2:26:00 EDT, Dry Weight Start Date: 03/10/23 Status: Ordered omeprazole 20 mg oral enteric coated capsule 1 capsule, By Mouth, Daily, # 90 capsule, 2 Refills, Maintenance, 05/23/23 11:48:00 EDT, [facility], 175, cm, 05/09/23 12:38:00 EDT, Height, 109.6, kg, 05/09/23 12:38:00 EDT, Dry Weight Start Date: 05/23/23 Status: Ordered Ozempic 2 mg/3 mL (0.25 mg or 0.5 mg dose) subcutaneous solution = 0.5 mg, Subcutaneous Injection, Every week, E11.9 diabetes type 2, # 3 mL, 5 Refills, Maintenance, 06/01/23 9:51:00 EDT, [facility], Partial fill [...] 3 Refills, Maintenance, 04/12/23 16:08:00 EDT, Powder, [facility], Partial fill upon patient request if the prescription is for a schedule II opioid drug., 1... Start Date: 04/12/23 Status: Ordered Zestoretic 25 mg-20 mg oral tablet 1 tablet, By Mouth, Daily, # 90 tablet, 3 Refills, Maintenance, 12/21/21 11:36:00 EST, Tablet, [facility] ([place]), 1 tablet By Mouth Daily,x90 days, 176, [...] of insulin use Confirmed Active 1EGD 2020 [address]; repeat 2022 3Colonoscopy 2012 polyp, repeat 2017 4EGD 2014 positive for gastroparesis. 5egd 2003 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 6upper endo 2014 7admitted [facility] 2009 8s/p left tkr 2011 Social History Social History Type Response Smoking Status Former smoker, quit more than 30 days ago; Other: quit in 1989; entered on: 05/09/23 Sex Patient Care team information Care Team Personnel Name: Sujey Pereira RN Position: [facility] RN Member Role: Primary Care Nurse Name: Nickie Calvo RN Position: [facility] SN RN Member Role: Primary Care Nurse Name: Adeel Dominguez RN Position: [facility] RN Member Role: Primary Care Nurse Name: Tierra Meeks NP Position: Reference Physician Member Role: Primary Care Nurse Address: Address: [address] [place] [address]- [place] Name: Margo Wilkins NP Position: [facility] Outreach Member Role: Primary Care Nurse Address: Address: [address] [place] [address]- [place] Name: Adeel Fountain MD Position: [facility] Physician - Primary Care Member Role: PCP Address: Address: [address] [place] [address]- [place] Name: Mindy Santiago RN Position: [facility] RN Member Role: Primary Care Nurse Name: Ramón Olivo MD Position: [facility] Physician - Infectious Disease Member Role: Lifetime Consulting Physician Address: Address: [address] [place] [address] [place] [address]- [place] Care Team Related Persons Name: RICHARD REDDY Address: home [address] [place] [address]
--- OUTSIDE RECORDS SUMMARY | 2024-10-12 12:29 | XMS_ITS | Continuity of Care Document ---
Author Organization [facility] Zackery lt Address [address] [place] [address]- Care Team Providers Care Crew Car Driver Name Role Phone Essie CHRISTINA, Adeel Nguyen Primary Care Physician [phone] [facility] Date(s): 08/04/22 - 09/03/22 [facility] Adult [address] [place] [address]- Allergies, Adverse Reactions, Alerts Substance Reaction Severity [...] Note: ADRY 4Admin Note: Biomedical Jon of [facility] 5Admin Note: BIOMEDICAL [...] 12/21/21 11:37:00 EST, Route to Pharmacy Electronically, [id number], [facility]), 176, cm, 10/26/21 9:28:00 EST, H... Start Date: 12/21/21 Status: Ordered azithromycin 250 mg oral tablet See Instructions, Take 2 tablets on day 1 and 1 tablet daily for next 4 days, # 6 tablet, 0 Refills, Maintenance, 08/31/22 13:38:00 EDT, Tablet, [facility], Partial fill upon patient request if the [...] 3 Refills, Maintenance, 12/21/21 11:37:00 EST, Tablet, [facility] ([place]), Partial fill upon patient request if the prescription is for aschedule II opioid drug., 176, cm, 10/26/21 9:28:00... Start Date: 12/21/21 Status: Ordered diltiazem 300 mg/24 hours oral capsule, extended release 300 mg, 1, capsule, By Mouth, Daily, # 90 capsule, Refills 3, Tot. Refills 3, Maintenance, 04/28/2210:41:00 EDT, Route to Pharmacy Electronically, [facility], 175, cm, 02/11/22 2:26:00 EDT, [...] 0, 0, 09/17/06 2:07:12, Print RENETTA Number, [phone], Constant Indicator Start Date: 09/17/06 Status: Ordered [...] 11:36:00 EST, Powder, [facility] ([place]), 1 puffs Inhalation 2 times a day,x90 [...] capsule, 1 Refills, Maintenance, 12/21/21 11:37:00 EST, [facility]), 176, cm, 10/26/21 9:28:00 EST, Height, 110.6, kg, 10/27/20 13:48:00 EST, Dry Weight Start Date: 12/21/21 Status: Ordered Metamucil Powder By Mouth, Daily at bedtime, 0 Refills, Maintenance, 05/08/13 11:48:10 EDT Start Date: 05/08/13 Status: Ordered metFORMIN 500 mg oral tablet 1 tablet = 500 mg, By Mouth, 2 times a day, # 180 tablet, 1 Refills, Maintenance, 06/13/22 8:47:00 EDT, Tablet, [facility]), 176, cm, 10/26/21 9:28:00 EST, Height, 110.6, kg, 10/27/20 13:48:00 EST, Dry Weight Start Date: 06/13/22 Stop Date: 12/10/22 Status: Ordered montelukast 10 mg oral tablet 1, tablet, By Mouth, Daily, # 90 tablet, Refills 3, Tot. Refills 3, 12/21/21 11:37:00 EST, Route toPharmacy Electronically, [facility] ([place]), 176, cm, 10/26/21 9:28:00 EST, Height, 110.6, [...] 11:15:51 EDT Start Date: 07/04/18 Status: Ordered predniSONE 20 mg oral tablet 1 tablet = 20 mg, By Mouth, 2 times a day, for 5 days, # 10 tablet, 0 Refills, Acute 09/05/22 13:38:00 EDT, 08/31/22 13:38:00 EDT, Tablet, [facility], Partial fill upon patient request if the prescription is for a schedule II opioid drug.,... Start Date: 08/31/22 Stop Date: 09/05/22 Status: Ordered Spine and Sports Spine and [...] 11:36:00 EST, Tablet, [facility] ([place]), 1 tablet By Mouth Daily,x90 days, 176, [...] 2003 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 6upper endo 2014 7admitted [facility] 2009 8s/p left tkr 2011 Social History Social History Type Response Smoking Status Former smoker; Other : quit 1989; entered on: 02/26/18 Sex Patient Care team information Personnel Name: Adeel Fountain MD Address: Address: [address] [place] [address]
--- OUTSIDE RECORDS SUMMARY | 2024-10-12 12:29 | XMS_ITS | Continuity of Care Document ---
Author Organization [facility] Zackery lt Address [address] [place] [address]- Care Team Providers Care Student Worker Name Role Phone Adeel Fountain MD Primary Care Physician [facility]): 06[facility]20 - 07/03/20 [facility] Adult [address] [place] [address]- [facility] Allergies, Adverse Reactions, Alerts Substance Reaction Severity [...] ADRY 4Admin Note: Biomedical Jon [facility] 5Admin Note: BIOMEDICAL JON 6Admin Note: [...] 02/26/18 9:54:20 EDT, Route to Pharmacy Electronically, [id number], [facility] Start Date: 02/26/18 Status: [...] 0, 0, 09/17/06 2:07:12, Print RENETTA Number, [id number], Constant Indicator Start Date: 09/17/06 Status: Ordered [...] 3 Refills, Maintenance, 05/06/20 14:07:00 EDT, Powder, [facility], 1 puffs Inhalation 2 times a day,x90 days, 175, cm, 05/06/20 13:45:00 EDT, Height, 113, kg, 01/06/20 13:04:00 EST, Dry Weight Start Date: 05/06/20 Stop Date: 05/01/21 Status: Ordered Lotrisone 0.05%-1% cream 1 application, Topically, 2 times a day, # 45 Gm, 0 Refills, Maintenance, 01/29/20 11:18:00 EDT, Cream, [facility], 1 application Topically 2 [...] tablet, 3 Refills, Maintenance, 05/06/20 14:05:00EDT, Tablet, [facility], 175, cm, 05/06/20 13:45:00 EDT, Height, 113, kg, 01/06/20 13:04:00 EST, Dry Weight Start Date: 05/06/20 Stop Date: 05/01/21 Status: Ordered omeprazole 20 mg oral enteric coated capsule 1 capsule, By Mouth, Daily, # 90 capsule, 0 Refills, Maintenance, 03/25/20 14:11:00 EDT, [facility], 175, cm, 01/30/20 9:09:00 [...] 01/29/20 11:19:00 EDT, Route to Pharmacy Electronically, [facility], 172, cm, 01/29/20 11:00:00 [...] with no history of insulin use(Confirmed) Active 09021; repeat 2022 2Colonoscopy 2013 polyp, repeat 2018 3EGD 2014 positive for gastroparesis. 4egd 2003 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 5upper endo 2014 6admitted [facility] 2009 7s/p left tkr 2011 Social History Social History Type Response Smoking Status Former smoker; Other : quit 1989; entered on: 02/26/18 Sex
--- OUTSIDE RECORDS SUMMARY | 2024-10-12 12:29 | XMS_ITS | Continuity of Care Document ---
Author Organization [facility] Zackery lt Address [address] [place] [address]- Care Team Providers Care Content Writer Name Role Phone Adeel Fountain MD Primary Care Physician [facility]s): 04/15/22 - 05/15/22 [facility] Adult [address] [place] [address]- Allergies, Adverse Reactions, Alerts Substance Reaction Severity Status morphine 1 don't want it Active Percocet 5/325 2 makes me feel like pulling skin off Active 1pt feels like taking his skin off when given morphine 2pt feels like taking his skin off when on percocet Immunizations Given and Recorded Vaccine Date Status Refusal Reason SARS-CoV-2 (COVID-19) mRNA-1273 vaccine 04/30/22 R ecorded SARS-CoV-2 (COVID-19) mRNA-1273 vaccine 11/09/21 R ecorded SARS-CoV-2 (COVID-19) mRNA-1273 vaccine 02/19/21 R ecorded SARS-CoV-2 (COVID-19) mRNA-1273 vaccine 01/19/21 R ecorded influenza virus vaccine, inactivated 09/01/21 Goyo rded [...] 08/06/13 Gi [facility] tetanus/diphtheria/pertussis, acel(Tdap) 07/04/19 Recorded Zoster Vaccine Live [...] 3Admin Note: ADRY 4Admin Note: Biomedical Jon [facility] 5Admin Note: BIOMEDICAL JON 6Admin Note: [...] 12/21/21 11:37:00 EST, Route to Pharmacy Electronically, [id number], [facility] ([place]), 176, cm, 10/26/21 9:28:00 EST, H... Start Date: 12/21/21 Status: Ordered CoQ10 = 300 mg, By Mouth, Daily, 0 Refills, Maintenance, 07/04/18 10:56:18 EDT Start Date: 07/04/18 Status: Ordered Crestor 5 mg oral tablet 1 tablet = 5 mg, By Mouth, Daily, # 90 tablet, 3 Refills, Maintenance, 12/21/21 11:37:00 EST, [facility] Partial fill upon patient request if the prescription is for aschedule II opioid drug., 176, cm, 10/26/21 9:28:00... Start Date: 12/21/21 Status: Ordered diltiazem 300 mg/24 hours oral capsule, extended release 300 mg, 1, capsule, By Mouth, Daily, # 90 capsule, Refills 3, Tot. Refills 3, Maintenance, 04/28/2210:41:00 EDT, Route to Pharmacy Electronically, [facility], 175, cm, 02/11/22 [...] 0, 0, 09/17/06 2:07:12, Print RENETTA Number, [id number], Constant Indicator Start Date: 09/17/06 Status: Ordered [...] 11:36:00 EST, Powder, [facility]), 1 puffs Inhalation 2 times a day,x90 [...] cm, 02/11/22 2:26:00 EDT, Height, 108, kg, 03... Start Date: 04/30/22 Status: Ordered Freestyle Lite Monitor See Instructions, [...] cm, 02/11/22 2:26:00 EDT, Height, 108, kg, 03... Start Date: 04/30/22 Status: Ordered melatonin 10 mg oral capsule 1 capsule = 10 mg, By Mouth, Daily at bedtime, # 60 capsule, 1 Refills, Maintenance, 12/21/21 11:37:00 EST, [facility]), 176, cm, 10/26/21 9:28:00 EST, Height, 110.6, kg, 10/27/20 13:48:00 EST, Dry Weight Start Date: 12/21/21 Status: Ordered Metamucil Powder By Mouth, Daily at bedtime, 0 Refills, Maintenance, 05/08/13 11:48:10 EDT Start Date: 05/08/13 Status: Ordered metFORMIN 500 mg oral tablet 1 tablet = 500 mg, By Mouth, 2 times a day, # 180 tablet, 1 Refills, Maintenance, 06/13/22 8:47:00 EDT, Tablet, [facility] ([place]), 176, cm, 10/26/21 9:28:00 EST, Height, 110.6, kg, 10/27/20 13:48:00 EST, Dry Weight Start Date: 06/13/22 Stop Date: 12/10/22 Status: Ordered montelukast 10 mg oral tablet 1, tablet, By Mouth, Daily, # 90 tablet, Refills 3, Tot. Refills 3, 12/21/21 11:37:00 EST, Route toPharmacy Electronically, [facility] ([place]), 176, cm, 10/26/21 9:28:00 EST, Height, 110.6, kg, 10/27/20 13:48:00 EST, Dry Weight Start Date: 12/21/21 Status: Ordered omeprazole 20 mg oral enteric coated capsule 1 capsule, By Mouth, Daily, # 90 capsule, 0 Refills, 05/03/22 16:38:00 EDT, [facility], 175, cm, 02/11/22 2:26:00 EDT, Height, 108, kg, 02/11/22 2:26:00 EDT, Dry Weight Start Date: 05/03/22 Status: Ordered One Touch Delica Lancets See [...] TO CHECK BLOOD SUGARS TWICE A DAY, 02/23/22 10:03:00 EDT, Supply, 175, cm, 02/11/22 2:26:00 EDT, Height, 108, kg, 02/11/22 2:26... Start Date: 02/23/22 Status: Ordered OneTouch Ultra Blue In Vitro [...] 11:36:00 EST, Tablet, [facility] ([place]), 1 tablet By Mouth Daily,x90 days, 176, cm, 10/26/21 9:28:00 EST, Height, 110.6, kg, 10/27/20 13:48:00 EST, Dry Weight Start Date: 12/21/21 Stop Date: 12/16/22 Status: Ordered Problem List Condition Effective Dates [...] with no history of insulin use(Confirmed) Active 1EGD 2020; repeat 2022 3Colonoscopy 2013 polyp, repeat 2017 4EGD 2014 positive for gastroparesis. 5egd 2003 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 6upper endo 2014 7admitted [facility] 2009 8s/p left tkr 2011 Social History Social History Type Response Smoking Status Former smoker; Other : quit 1989; entered on: 02/26/18 Sex
--- OUTSIDE RECORDS SUMMARY | 2024-10-12 12:29 | XMS_ITS | Continuity of Care Document ---
Author Organization [facility] Elier Zackery lt Address [address] [place] [address]- Care Team Providers Care Accounts Collector Name Role Phone Adeel Fountain MD Primary Care Physician Encounter [facility] [id number] Date(s): 08/20/24 - 08/20/24 [facility] Adult [address] [place] [address]- Allergies, Adverse Reactions, Alerts Substance Reaction Severity [...] RSV vaccine preF3, recombinant 10/05/23 Recorded SARS-CoV-2(COVID-19)mRNA-LNP vac([id number]) 09/22/23 Recorded influenza virus vaccine, inactivated 09/15/23 [...] influenza virus vaccine, inactivated 08/04/13 Goyo rded [id number] 12y+ bivalent booster vax 12/13/22 Given pneumococcal [...] DOSE 3Admin Note: ADRY 4Admin Note: [facility]ical [facility] [place] 5Admin Note: BIOMEDICAL [...] 12/21/21 11:37:00 EST, Route to Pharmacy Electronically, [id number], [facility]), 176, cm, 10/26/21 9:28:00 EST, H... Start Date: 12/21/21 Status: Ordered cetirizine 10 mg oral tablet 1 tablet, By Mouth, Daily, # 90 tablet, 3 Refills, Maintenance, 07/03/24 15:50:00 EDT, [facility] # [facility], 175, cm, 03/05/24 14:58:00 EDT, Height, 109.6, kg, 05/09/23 12:38:00 EDT, Dry Weight Start Date: 07/03/24 Status: Ordered Crestor 5 mg oral tablet 1 tablet = 5 mg, By Mouth, Daily, # 90 tablet, 1 Refills, Maintenance, 03/16/24 16:26:00 EDT, Tablet, [facility] # 50, Partial fill upon patient request if the prescription is for a schedule II opioid drug., 175, cm, 03/05/24 14:58:00 EDT, Height,... Start Date: 03/16/24 Status: Ordered DilTIAZem (Eqv-Cardizem CD) 300 mg/24 hours oral capsule, extended release 1 capsule, By Mouth, Daily, # 90 capsule, 1 Refills, Maintenance, 08/02/24 10:05:00 EDT, [facility] # 50, 175, cm, 03/05/24 14:58:00 EDT, Height, 109.6, kg, 05/09/23 12:38:00 EDT, Dry Weight Start Date: 08/02/24 Status: Ordered doxazosin 4 mg oral tablet 1 tablet = 4 mg, By Mouth, Daily, 0 Refills, Maintenance, 01/30/20 9:12:00 EDT Start Date: 01/30/20 Status: Ordered Ecotrin Low Strength Adult 81 mg oral enteric coated tablet 81, mg, 1, tablet, By Mouth, Daily, 0, 0, 09/17/06 2:07:12, Print RENETTA Number, [id number], Constant Indicator Start Date: 09/17/06 Status: Ordered [...] Gm, 1 Refills, Maintenance, 02/16/23 10:19:00 EDT, [place], [facility], Partial fill upon patient [...] Dry Weight Start Date: 04/30/22 Status: Ordered FREESTYLE LITE TEST STRP FREESTYLE LITE TEST STRP, See Instructions, # 100 Unknown, 11 Refills, Maintenance, CHECK BLOOD SUGAR ONCE A DAY, 07/20/24 16:04:00 EDT, 175, cm, 03/05/24 14:58:00 EDT, Height, 109.6, kg, 05/09/23 12:38:00 EDT, Dry Weight Start Date: 07/20/24 Status: Ordered Freestyle Lite Test Strips See Instructions, # 100 each, Refills 11, Tot. Refills 11, Maintenance, 90 days DM 2 E11.9 check blood sugar once a day, 06/16/23 9:37:00 EDT, 90 days DM 2 E11.9 check blood sugar once a day, Supply,175, cm, 06/16/23 9:25:00 EDT, Height, 109.6, kg, 0... Start Date: 06/16/23 Status: Ordered hydrochlorothiazide 25 mg oral tablet 25 mg, 1, tablet, By Mouth, Daily, # 90 tablet, Refills 3, Tot. Refills 3, Maintenance, 06/19/24 16:54:00 EDT, Route to Pharmacy Electronically, [facility] # [facility], Partial fill upon patient requestif the prescription is for a schedule II opioid geovanna... Start Date: 06/19/24 Status: Ordered melatonin 10 mg oral capsule 1 capsule = 10 mg, By Mouth, Daily at bedtime, # 60 capsule, 1 Refills, Maintenance, 12/21/21 11:37:00 EST, [facility]), 176, cm, 10/26/21 9:28:00 EST, Height, 110.6, kg, 10/27/20 13:48:00 EST, Dry Weight Start Date: 12/21/21 Status: Ordered Metamucil Powder By Mouth, Daily at bedtime, 0 Refills, Maintenance, 05/08/13 11:48:10 EDT Start Date: 05/08/13 Status: Ordered montelukast 10 mg oral tablet 1, tablet, By Mouth, Daily, # 90 tablet, Refills 1, Maintenance, 07/20/24 4:49:00 EDT, Route to Pharmacy Electronically, [facility] # [facility], 175, cm, 03/05/24 14:58:00 EDT, Height, 109.6, kg, 05/09/23 12:38:00 EDT, Dry Weight Start Date: 07/20/24 Status: Ordered omeprazole 20 mg oral enteric coated capsule 1 capsule, By Mouth, Daily, # 90 capsule, 1 Refills, Maintenance, 03/09/24 13:03:00 EDT, [facility] # 50, 175, cm, 03/05/24 14:58:00 EDT, Height, 109.6, kg, 05/09/23 12:38:00 EDT, Dry Weight Start Date: 03/09/24 Status: Ordered Ozempic 2 mg/3 mL (0.25 mg or 0.5 mg dose) subcutaneous solution See Instructions, INJECT 0.5MG UNDER THE SKIN ONCE WEEKLY, # 3 mL, 12 Refills, Maintenance, 01/16/24 15:35:00 EST, [facility] # 50, 175, cm, 12/16/23 13:50:00 EST, Height, 109.6, kg, 05/09/23 12:38:00 EDT, Dry Weight Start Date: 01/16/24 Status: Ordered Patient's Own Meds Maintenance, artichoke extract 1 tab daily, 07/04/18 11:15:51 EDT Start Date: 07/04/18 Status: Ordered predniSONE 10 mg oral tablet See Instructions, take six tablets (60mg) daily for three days. Then five tablets daily for 2 days.Then four tablets daily for 2 days. Then three tablets daily for 2 days. Then two tablets daily for2 days. Then one tablet daily for 2 days., # 48 t... Start Date: 03/05/24 Status: Ordered testosterone 20.25 mg/1.25 g (1.62%) [...] drug., 1... Start Date: 04/12/23 Status: Ordered Problem List Condition Confirmation Course [...] of insulin use Confirmed Active 1EGD 2020 19753; repeat 2022 3Colonoscopy 2013 polyp, repeat 2017 4EGD 2014 positive for gastroparesis. 5egd 2003 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 6upper endo 2014 7admitted [facility] 2009 8s/p left tkr 2011 Social History Social History Type Response Smoking Status Former smoker, quit more than 30 days ago; Other: quit in 1989; entered on: 05/09/23 Sex Patient Care team information Care Team Personnel Name: Sujey Pereira RN Position: S RN Member Role: Primary Care Nurse Name: Nickie Calvo RN Position: [facility] RN Member Role: Primary Care Nurse Name: Adeel Dominguez RN Position: S RN Member Role: Primary Care Nurse Name: Tierra Meeks NP Position: Reference Physician Member Role: Primary Care Nurse Address: Address: [address] [place] [address]- [place] Name: Margo Wilkins NP Position: [facility] Outreach Member Role: Primary Care Nurse Address: Address: [address] [place] [address]- [place] Name: Essie CHRISTINA, Adeel Nguyen Position: [facility] Physician - Primary Care Member Role: PCP Address: Address: [address] [place] [address]- [place] Name: Mindy Santiago RN Position: [facility] RN Member Role: Primary Care Nurse Name: Ramón Olivo MD Position: [facility] Physician - Infectious Disease Member Role: Lifetime Consulting Physician Address: Address: [address] [place] [address] [place] [address]- [place] Care Team Related Persons Name: RICHARD REDDY Address: home [address] [place] [address]
--- OUTSIDE RECORDS SUMMARY | 2024-10-12 12:29 | XMS_ITS | Continuity of Care Document ---
Author Organization [facility] Zackery lt Address [address] [place] [address]- Care Team Providers Care Digital Project Coordinator Name Role Phone Adeel Fountain MD Primary Care Physician [place] [facility] [place] 11[place]22 - 11/12/22 [facility] Adult [address] [place] [address]- Encounter Diagnosis Cough(Discharge Diagnosis) - 11/05/22 Hoarseness of voice(Discharge Diagnosis) - 11/05/22 Attending Physician: Cary HEAD PAPER TESTER, Katheryn Allergies, Adverse Reactions, Alerts Substance Reaction Severity [...] ADRY 4Admin Note: [facility]ical [facility] [place] 5Admin Note: BIOMEDICAL JON 6Admin Note: GIVEN [...] 12/21/21 11:37:00 EST, Route to Pharmacy Electronically, [id number], [facility]), 176, cm, 10/26/21 9:28:00 EST, H... Start Date: 12/21/21 Status: Ordered azithromycin 250 mg oral tablet See Instructions, Take 2 tablets on day 1 and 1 tablet daily for next 4 days, # 6 tablet, 0 Refills, Maintenance, 08/31/22 13:38:00 EDT, Tablet, [facility], Partial fill upon patient [...] 3 Refills, Maintenance, 12/21/21 11:37:00 EST, Tablet, [facility], Partial fill upon patient request if the prescription is for aschedule II opioid drug., 176, cm, 10/26/21 9:28:00... Start Date: 12/21/21 Status: Ordered diltiazem 300 mg/24 hours oral capsule, extended release 300 mg, 1, capsule, By Mouth, Daily, # 90 capsule, Refills 3, Tot. Refills 3, Maintenance, 04/28/2210:41:00 EDT, Route to Pharmacy Electronically, [facility], 175, cm, 02/11/22 2:26:00 [...] 0, 0, 09/17/06 2:07:12, Print RENETTA Number, [id number], Constant Indicator Start Date: 09/17/06 Status: Ordered [...] 11:36:00 EST, Powder, [facility] ([place]), 1 puffs Inhalation 2 times a day,x90 [...] capsule, 1 Refills, Maintenance, 12/21/21 11:37:00 EST, [facility] ([place]), 176, cm, 10/26/21 9:28:00 EST, Height, 110.6, kg, 10/27/20 13:48:00 EST, Dry Weight Start Date: 12/21/21 Status: Ordered Metamucil Powder By Mouth, Daily at bedtime, 0 Refills, Maintenance, 05/08/13 11:48:10 EDT Start Date: 05/08/13 Status: Ordered metFORMIN 500 mg oral tablet 1 tablet = 500 mg, By Mouth, 2 times a day, # 180 tablet, 1 Refills, Maintenance, 10/19/22 14:49:00EST, Tablet, [facility], 175, cm, 09/28/22 10:09:00 EST, Height, 108, kg, 02/11/22 2:26:00 EDT, Dry Weight Start Date: 10/19/22 Stop Date: 04/17/23 Status: Ordered metFORMIN 500 mg oral tablet 1 tablet = 500 mg, By Mouth, 2 times a day, for 90 days, # 180 tablet, 1 Refills, Hard Stop 12/10/22 8:47:00 EST, 06/13/22 8:47:00 EDT, Tablet, [facility]), 176, cm, 10/26/21 9:28:00 EST, Height, 110.6, kg, 10/27/20 13:48:00 EST,... Start Date: 06/13/22 Stop Date: 12/10/22 Status: Ordered montelukast 10 mg oral tablet 1, tablet, By Mouth, Daily, # 90 tablet, Refills 3, Tot. Refills 3, 12/21/21 11:37:00 EST, Route toPharmacy Electronically, [facility] ([place]), 176, cm, 10/26/21 9:28:00 EST, Height, 110.6, [...] 11:36:00 EST, Tablet, [facility] ([place]), 1 tablet By Mouth Daily,x90 days, 176, [...] 2003 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 6upper endo 2014 7admitted [facility] 2009 8s/p left tkr 2011 Diagnosis Diagnosis Type Effective Dates Health Status Clinical Service Informant Cough Discharge Diagnosis 11/05/22 Hoarseness of voice Discharge Diagnosis 11/05/22 Vital Signs Most recent to oldest [Reference Range]: 1 Height 175 cm (11/05/22 1:13 PM) Social History Social History Type Response Smoking Status Former smoker; Other : quit 1989; entered on: 02/26/18 Sex Patient Care team information Care Team Personnel Name: Sujey Pereira RN Position: [facility] RN Member Role: Primary Care Nurse Name: Nickie Calvo RN Position: [facility] SN RN Member Role: Primary Care Nurse Name: Adeel Dominguez RN Position: [facility] RN Member Role: Primary Care Nurse Name: Tierra Meeks NP Position: [facility] PCO Associate Professional Member Role: Primary Care Nurse Name: Margo Wilkins NP Position: [facility] Associate Professional Member Role: Primary Care Nurse Address: Address: [address] [place] [phone]- [place] Name: Adeel Fountain MD Position: [facility] Primary Care Physician Member Role: PCP Address: Address: [address] [place] [address]- [place] Name: Mindy Santiago RN Position: [facility] RN Member Role: Primary Care Nurse Name: Ramón Olivo MD Position: [facility] Infectious Disease MD Member Role: Lifetime Consulting Physician Address: Address: [address] [place] [address] [place] [address]- Care Team Related Persons Name: MARILIN REDDYLIAN Address: home [address] [place] [address] [facility] [address]
--- OUTSIDE RECORDS SUMMARY | 2024-10-12 12:29 | XMS_ITS | Continuity of Care Document ---
Author Organization [facility] Elier Zackery lt Address [address] [place] [address]- Care Team Providers Care Tree Driller Name Role Phone Adeel Fountain MD Primary Care Physician Encounter [facility] Date(s): 03/09/23 - 04/08/23 [facility] Adult [address] [place] [address]- Allergies, Adverse Reactions, Alerts Substance Reaction Severity Status morphine 1 don't want it Active Percocet 5/325 2 makes me feel like pulling skin off Active 1pt feels like taking his skin off when given morphine 2pt feels like taking his skin off when on percocet Immunizations Given and Recorded Vaccine Date Status Refusal Reason [id number] 12y+ bivalent booster vax 12/13/22 Given pneumococcal [...] Note: ADRY 4Admin Note: Biomedical [facility] 5Admin Note: BIOMEDICAL JON 6Admin [...] 12/21/21 11:37:00 EST, Route to Pharmacy Electronically, [id number], [facility]), 176, cm, 10/26/21 9:28:00 EST, H... Start Date: 12/21/21 Status: Ordered cetirizine 10 mg oral tablet 1 tablet = 10 mg, By Mouth, Daily, # 30 tablet, 1 Refills, Maintenance, 02/16/23 10:18:00 EDT, Tablet, [facility], Partial fill upon [...] 3 Refills, Maintenance, 02/16/23 10:00:00 EDT, Tablet, [facility], Partial fill upon patient request if the prescription is for a schedule IIopioid drug., 175, cm, 02/16/23 9:32:00 EDT, Height... Start Date: 02/16/23 Status: Ordered diltiazem 300 mg/24 hours oral capsule, extended release 300 mg, 1, capsule, By Mouth, Daily, # 90 capsule, Refills 3, Tot. Refills 3, Maintenance, 04/28/2210:41:00 EDT, Route to Pharmacy Electronically, [facility], 175, cm, 02/11/22 [...] 0, 0, 09/17/06 2:07:12, Print RENETTA Number, [id number], Constant Indicator Start Date: 09/17/06 Status: Ordered Farxiga 5 mg oral tablet 1 tablet = 5 mg, By Mouth, Daily, # 90 tablet, 3 Refills, Maintenance, 12/13/22 14:14:00 EST, Tablet, [facility], Partial fill upon [...] 11:36:00 EST, Powder, [facility]), 1 puffs Inhalation 2 times a day,x90 days, 176, cm, 10/26/21 9:28:00 EST, Height, 110.6, kg, 10/27/20 13:48:00 EST,... Start Date: 12/21/21 Stop Date: 12/16/22 Status: Ordered fluticasone 50 mcg/inh nasal spray 2 sprays, Nares, Both, Daily in AM, in each nostril, # 16 Gm, 1 Refills, Maintenance, 02/16/23 10:19:00 EDT, Breaks, [facility], Partial fill upon [...] capsule, 1 Refills, Maintenance, 12/21/21 11:37:00 EST, [facility]), 176, cm, 10/26/21 9:28:00 EST, Height, 110.6, kg, 10/27/20 13:48:00 EST, Dry Weight Start Date: 12/21/21 Status: Ordered Metamucil Powder By Mouth, Daily at bedtime, 0 Refills, Maintenance, 05/08/13 11:48:10 EDT Start Date: 05/08/13 Status: Ordered montelukast 10 mg oral tablet 1, tablet, By Mouth, Daily, # 90 tablet, Refills 3, Tot. Refills 3, 03/10/23 10:02:00 EDT, Route toPharmacy Electronically, [facility], 175, cm, 02/16/23 9:32:00 EDT, Height, 108, kg, 02/11/22 2:26:00 EDT, Dry Weight Start Date: 03/10/23 Status: Ordered omeprazole 20 mg oral enteric coated capsule 1 capsule, By Mouth, Daily, # 90 capsule, 3 Refills, Maintenance, 02/16/23 9:59:00 EDT, [facility], 175, cm, 02/16/23 9:32:00 EDT, Height, 108, kg, 02/11/22 2:26:00 EDT, Dry Weight Start Date: 02/16/23 Status: Ordered Ozempic 2 mg/3 mL (0.25 mg or 0.5 mg dose) subcutaneous solution = 0.5 mg, Subcutaneous Injection, Every week, E11.9 diabetes type 2, # 3 mL, 6 Refills, Maintenance, 03/15/23 15:27:00 EDT, [facility], Partial fill upon [...] 11:36:00 EST, Tablet, [facility] ([place]), 1 tablet By Mouth Daily,x90 days, 176, [...] 2003 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 6upper endo 2014 7admitted [facility] 2009 8s/p left tkr 2011 Social History Social History Type Response Smoking Status Former smoker; Other : quit 1989; entered on: 02/26/18 Sex Patient Care team information Care Team Personnel Name: Sujey Pereira RN Position: [facility] RN Member Role: Primary Care Nurse Name: Nickie Calvo RN Position: [facility] RN Member Role: Primary Care Nurse Name: Adeel Dominguez RN Position: [facility] RN Member Role: Primary Care Nurse Name: Tierra Meeks NP Position: Reference Physician Member Role: Primary Care Nurse Address: Address: [address] [place] [address]- [place] Name: Margo Wilkins NP Position: [facility] Outreach Member Role: Primary Care Nurse Address: Address: [address] [place] [address]- [place] Name: Adeel Fountain MD Position: [facility] Primary Care Physician Member Role: PCP Address: Address: [address] [place] [address]- [place] Name: Mindy Santiago RN Position: [facility] RN Member Role: Primary Care Nurse Name: Ramón Olivo MD Position: [facility] Infectious Disease MD Member Role: Lifetime Consulting Physician Address: Address: [address] [place] [address] [place] [address]- Care Team Related Persons Name: RICHARD REDDY Address: [address] [address]
--- OUTSIDE RECORDS SUMMARY | 2024-10-12 12:29 | XMS_ITS | Continuity of Care Document ---
Author Organization [facility] Zackery lt Address [address] [place] [address]- Care Team Providers Care Plumber Gasfitter Name Role Phone Adeel Fountain MD Primary Care Physician [place] [facility] [place] 11/25/22 [facility] Adult [address] [place] [address]- Allergies, Adverse Reactions, Alerts Substance Reaction Severity [...] ADRY 4Admin Note: [facility]ical [facility] [place] 5Admin Note: BIOMEDICAL [...] 12/21/21 11:37:00 EST, Route to Pharmacy Electronically, [id number], [facility]), 176, cm, 10/26/21 9:28:00 EST, H... Start Date: 12/21/21 Status: Ordered azithromycin 250 mg oral tablet See Instructions, Take 2 tablets on day 1 and 1 tablet daily for next 4 days, # 6 tablet, 0 Refills, Maintenance, 08/31/22 13:38:00 EDT, Tablet, [facility], Partial fill upon patient request if the [...] 11:37:00 EST, Tablet, [facility] ([place]), Partial fill upon patient request if the prescription is for aschedule II opioid drug., 176, cm, 10/26/21 9:28:00... Start Date: 12/21/21 Status: Ordered diltiazem 300 mg/24 hours oral capsule, extended release 300 mg, 1, capsule, By Mouth, Daily, # 90 capsule, Refills 3, Tot. Refills 3, Maintenance, 04/28/2210:41:00 EDT, Route to Pharmacy Electronically, [facility], 175, cm, 02/11/22 [...] 0, 0, 09/17/06 2:07:12, Print RENETTA Number, [id number], Constant Indicator Start Date: 09/17/06 Status: Ordered [...] 11:36:00 EST, Powder, [facility] ([place]), 1 puffs Inhalation 2 times a [...] capsule, 1 Refills, Maintenance, 12/21/21 11:37:00 EST, [facility] ([place]), 176, cm, 10/26/21 9:28:00 EST, Height, 110.6, kg, 10/27/20 13:48:00 EST, Dry Weight Start Date: 12/21/21 Status: Ordered Metamucil Powder By Mouth, Daily at bedtime, 0 Refills, Maintenance, 05/08/13 11:48:10 EDT Start Date: 05/08/13 Status: Ordered metFORMIN 500 mg oral tablet 1 tablet = 500 mg, By Mouth, 2 times a day, # 180 tablet, 1 Refills, Maintenance, 10/19/22 14:49:00EST, Tablet, [facility], 175, cm, 09/28/22 10:09:00 EST, Height, 108, kg, 02/11/22 2:26:00 EDT, Dry Weight Start Date: 10/19/22 Stop Date: 04/17/23 Status: Ordered metFORMIN 500 mg oral tablet 1 tablet = 500 mg, By Mouth, 2 times a day, for 90 days, # 180 tablet, 1 Refills, Hard Stop 12/10/22 8:47:00 EST, 06/13/22 8:47:00 EDT, Tablet, [facility] ([place]), 176, cm, 10/26/21 9:28:00 EST, Height, 110.6, kg, 10/27/20 13:48:00 EST,... Start Date: 06/13/22 Stop Date: 12/10/22 Status: Ordered montelukast 10 mg oral tablet 1, tablet, By Mouth, Daily, # 90 tablet, Refills 3, Tot. Refills 3, 12/21/21 11:37:00 EST, Route toPharmacy Electronically, [facility] ([place]), 176, cm, 10/26/21 9:28:00 EST, Height, [...] 11:36:00 EST, Tablet, [facility] ([place]), 1 tablet By Mouth Daily,x90 days, [...] 2003 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 6upper endo 2014 7admitted [facility] 2009 8s/p left tkr 2011 Social History Social History Type Response Smoking Status Former smoker; Other : quit 1989; entered on: 02/26/18 Sex Patient Care team information Care Team Personnel Name: Sujey Pereira RN Position: [facility] RN Member Role: Primary Care Nurse Name: Nickie Calvo RN Position: [facility] SN RN Member Role: Primary Care Nurse Name: Adeel Dominguez RN Position: [facility] RN Member Role: Primary Care Nurse Name: Tierra Meeks NP Position: [facility] PCO Associate Professional Member Role: Primary Care Nurse Name: Margo Wilkins NP Position: [facility] Associate Professional Member Role: Primary Care Nurse Address: Address: [address] [place] [address] [place] [address]- Name: Adeel Fountain MD Position: [facility] Primary Care Physician Member Role: PCP Address: Address: [address] [place] [address]- [place] Name: Mindy Santiago RN Position: [facility] RN Member Role: Primary Care Nurse Name: Ramón Olivo MD Position: [facility] Infectious Disease MD Member Role: Lifetime Consulting Physician Address: Address: [address] [place] [address] [place] [address]- Care Team Related Persons Name: RICHARD REDDY Address: home [address] [place] [address]
--- OUTSIDE RECORDS SUMMARY | 2024-10-12 12:29 | XMS_ITS | Continuity of Care Document ---
Author Organization [facility] Zackery lt Address [address] [place] [address]- Care Team Providers Care Business Services Assistant Name Role Phone Adeel Fountain MD Primary Care Physician [facility] Date[facility]16[facility]24 - 02/15/24 [facility] Adult [address] [place] [address]- Allergies, Adverse Reactions, Alerts Substance Reaction Severity [...] RSV vaccine preF3, recombinant 10/05/23 Recorded SARS-CoV-2(COVID-19)mRNA-LNP vac([id number]) 09/22/23 Recorded influenza virus vaccine, inactivated 09/15/23 [...] influenza virus vaccine, inactivated 08/04/13 Goyo rded [id number] 12y+ bivalent booster vax 12/13/22 Given pneumococcal [...] 12/21/21 11:37:00 EST, Route to Pharmacy Electronically, [id number], [facility]), 176, cm, 10/26/21 9:28:00 EST, H... Start Date: 12/21/21 Status: Ordered cetirizine 10 mg oral tablet 1 tablet = 10 mg, By Mouth, Daily, # 90 tablet, 3 Refills, Maintenance, 04/20/23 13:44:00 EDT, Tablet, [facility] # [facility], Partial fill upon patient request if the prescription is for a schedule II opioid drug., 175, cm, 04/12/23 15:36:00 EDT, Height... Start Date: 04/20/23 Status: Ordered Crestor 5 mg oral tablet 1 tablet = 5 mg, By Mouth, Daily, # 90 tablet, 2 Refills, Maintenance, 06/01/23 9:50:00 EDT, Tablet, [facility] # [facility], Partial fill upon patient request if the prescription is for a schedule II opioid drug., 175, cm, 05/09/23 12:38:00 EDT, Height,... Start Date: 06/01/23 Status: Ordered diltiazem 300 mg/24 hours oral capsule, extended release 300 mg, 1, capsule, By Mouth, Daily, # 90 capsule, Refills 3, Tot. Refills 3, Maintenance, 07/26/2311:47:00 EDT, Route to Pharmacy Electronically, [facility] # [facility], 175, cm, 06/16/23 9:25:00 [...] 0, 0, 09/17/06 2:07:12, Print RENETTA Number, [id number], Constant Indicator Start Date: 09/17/06 Status: Ordered [...] Gm, 1 Refills, Maintenance, 02/16/23 10:19:00 EDT, [place], [facility], Partial fill upon patient [...] 12/21/21 11:37:00 EST, [facility] ([place]), 176, cm, 10/26/21 9:28:00 [...] EST, Route to Pharmacy Electronically, [facility], 175, cm, 12/16/23 [...] mL, 12 Refills, Maintenance, 01/16/24 15:35:00 EST, [facility] # [facility], 175, cm, 12/16/23 13:50:00 [...] 3 Refills, Maintenance, 04/12/23 16:08:00 EDT, Powder, [facility] # [facility], Partial fill upon patient [...] 2003 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 6upper endo 2014 7admitted [facility] 2009 8s/p left tkr 2011 Social History Social History Type Response Smoking Status Former smoker, quit more than 30 days ago; Other: quit in 1989; entered on: 05/09/23 Sex Patient Care team information Care Team Personnel Name: Sujey Pereira RN Position: [facility] RN Member Role: Primary Care Nurse Name: Nickie Calvo RN Position: [facility] RN Member Role: Primary Care Nurse Name: Adeel Dominguez RN Position: [facility] RN Member Role: Primary Care Nurse Name: Tierra Meeks NP Position: Reference Physician Member Role: Primary Care Nurse Address: Address: [address] [place] [phone]- [place] Name: Margo Wilkins NP Position: [facility] Outreach Member Role: Primary Care Nurse Address: Address: [address] [place] [address]- [place] Name: Adeel Fountain MD Position: [facility] Physician - Primary Care Member Role: PCP Address: Address: [address] [place] [address]- [place] Name: Mindy Santiago RN Position: [facility] RN Member Role: Primary Care Nurse Name: Ramón Olivo MD Position: [facility] Physician - Infectious Disease Member Role: Lifetime Consulting Physician Address: Address: [address] [place] [address] [place] [address]- Care Team Related Persons Name: RICHARD REDDY Address: home [address] [place], [place] [address] [id number]
--- OUTSIDE RECORDS SUMMARY | 2024-10-12 12:29 | XMS_ITS | Continuity of Care Document ---
Author Organization [facility] Zackery lt Address [address] [place] [address]- Care Team Providers Care Founder & Ceo Name Role Phone Adeel Fountain MD Primary Care Physician [phone] [facility] Date[facility]s): 07/24/23 - 08/23/23 [facility] Adult [address] [place] [address]- Allergies, Adverse Reactions, Alerts Substance Reaction Severity Status Percocet 5/325 1 makes me feel like pulling skin off Active morphine 2 don't want it Active 1pt feels like taking his skin off when on percocet 2pt feels like taking his skin off when given morphine Immunizations Given and Recorded Vaccine Date Status Refusal Reason [id number] 12y+ bivalent booster vax 12/13/22 Given pneumococcal [...] Note: ADRY 4Admin Note: Biomedical Jon of [facility] 5Admin Note: BIOMEDICAL [...] 12/21/21 11:37:00 EST, Route to Pharmacy Electronically, [id number], [facility]), 176, cm, 10/26/21 9:28:00 EST, H... Start Date: 12/21/21 Status: Ordered cetirizine 10 mg oral tablet 1 tablet = 10 mg, By Mouth, Daily, # 90 tablet, 3 Refills, Maintenance, 04/20/23 13:44:00 EDT, Tablet, [facility] # [facility], Partial fill upon patient request if the prescription is for a schedule II opioid drug., 175, cm, 04/12/23 15:36:00 EDT, Height... Start Date: 04/20/23 Status: Ordered Crestor 5 mg oral tablet 1 tablet = 5 mg, By Mouth, Daily, # 90 tablet, 2 Refills, Maintenance, 06/01/23 9:50:00 EDT, Tablet, [facility] # 50, Partial fill upon patient request if the prescription is for a schedule II opioid drug., 175, cm, 05/09/23 12:38:00 EDT, Height,... Start Date: 06/01/23 Status: Ordered diltiazem 300 mg/24 hours oral capsule, extended release 300 mg, 1, capsule, By Mouth, Daily, # 90 capsule, Refills 3, Tot. Refills 3, Maintenance, 07/26/2311:47:00 EDT, Route to Pharmacy Electronically, [facility] # [facility], 175, cm, [...] 0, 0, 09/17/06 2:07:12, Print RENETTA Number, [id number], Constant Indicator Start Date: 09/17/06 Status: Ordered [...] Gm, 1 Refills, Maintenance, 02/16/23 10:19:00 EDT, [place], [facility], Partial fill [...] [facility]), 176, cm, 10/26/21 9:28:00 EST, Height, 110.6, kg, 10/27/20 13:48:00 EST, Dry Weight Start Date: 12/21/21 Status: Ordered Metamucil Powder By Mouth, Daily at bedtime, 0 Refills, Maintenance, 05/08/13 11:48:10 EDT Start Date: 05/08/13 Status: Ordered montelukast 10 mg oral tablet 1, tablet, By Mouth, Daily, # 90 tablet, Refills 1, Tot. Refills 1, 07/04/23 9:32:00 EDT, Route to Pharmacy Electronically, [facility] # [facility], 175, cm, 06/16/23 9:25:00 EDT, Height, 109.6, kg, 05/09/23 12:38:00 EDT, Dry Weight Start Date: 07/04/23 Status: Ordered omeprazole 20 mg oral enteric coated capsule 1 capsule, By Mouth, Daily, # 90 capsule, 2 Refills, Maintenance, 05/23/23 11:48:00 EDT, [facility] # [facility], 175, cm, 05/09/23 12:38:00 EDT, Height, 109.6, kg, 05/09/23 12:38:00 EDT, Dry Weight Start Date: 05/23/23 Status: Ordered Ozempic 2 mg/3 mL (0.25 mg or 0.5 mg dose) subcutaneous solution = 0.5 mg, Subcutaneous Injection, Every week, E11.9 diabetes type 2, # 3 mL, 5 Refills, Maintenance, 06/01/23 9:51:00 EDT, [facility] # 50, Partial fill [...] 11:36:00 EST, Tablet, [facility] ([place]), 1 tablet By Mouth Daily,x90 days, 176, [...] 6upper endo 2014 [address] [facility] 2009 8s/p left tkr 2011 Social History Social History Type Response Smoking Status Former smoker, quit more than 30 days ago; Other: quit in 1989; entered on: 05/09/23 Sex Patient Care team information Care Team Personnel Name: Sujey Pereira RN Position: [facility] RN Member Role: Primary Care Nurse Name: Nickie Calvo RN Position: [facility] RN Member Role: Primary Care Nurse Name: Adeel Dominguez RN Position: [facility] RN Member Role: Primary Care Nurse Name: Tierra Meeks NP Position: Reference Physician Member Role: Primary Care Nurse Address: Address: [address] [place] [address]- [place] Name: Margo Wilkins NP Position: [facility] Outreach Member Role: Primary Care Nurse Address: Address: [address] [place] [address]- [place] Name: Adeel Fountain MD Position: [facility] Physician - Primary Care Member Role: PCP Address: Address: [address] [place] [address]- [place] Name: Mindy Santiago RN Position: [facility] RN Member Role: Primary Care Nurse Name: Ramón Olivo MD Position: [facility] Physician - Infectious Disease Member Role: Lifetime Consulting Physician Address: Address: [address] [place] [address] [place] [address]- [place] Care Team Related Persons Name: RICHARD REDYD Address: [address] [address]
--- OUTSIDE RECORDS SUMMARY | 2024-10-12 12:29 | XMS_ITS | Continuity of Care Document ---
Author Organization [facility] Elier Zackery lt Address [address] [place] [address]- Care Team Providers Care Salvager Name Role Phone Adeel Fountain MD Primary Care Physician Encounter [facility] Date(s): 02/13/23 - 03/15/23 [facility] Adult [address] [place] [address]- Allergies, Adverse Reactions, Alerts Substance Reaction Severity Status morphine 1 don't want it Active Percocet 5/325 2 makes me feel like pulling skin off Active 1pt feels like taking his skin off when given morphine 2pt feels like taking his skin off when on percocet Immunizations Given and Recorded Vaccine Date Status Refusal Reason [id number] 12y+ bivalent booster vax 12/13/22 Given pneumococcal 20-valent conjugate vaccine 08/06/22 Recorded influenza virus vaccine, inactivated 08/06/22 Goyo rded influenza virus vaccine, inactivated 09/01/21 Goyo rded influenza virus vaccine, inactivated 07/24/20 Goyo rded influenza virus vaccine, inactivated 10/15/19 Give n influenza virus vaccine, inactivated 08/15/18 Gooy rded influenza virus vaccine, inactivated 08/29/17 Goyo [...] Note: ADRY 4Admin Note: Biomedical Jon of [facility] 5Admin Note: BIOMEDICAL JON 6Admin [...] 12/21/21 11:37:00 EST, Route to Pharmacy Electronically, [id number], [facility]), 176, cm, 10/26/21 9:28:00 EST, H... Start Date: 12/21/21 Status: Ordered cetirizine 10 mg oral tablet 1 tablet = 10 mg, By Mouth, Daily, # 30 tablet, 1 Refills, Maintenance, 02/16/23 10:18:00 EDT, Tablet, [facility], Partial fill upon [...] 3 Refills, Maintenance, 02/16/23 10:00:00 EDT, Tablet, [facility], Partial fill upon patient request if the prescription is for a schedule IIopioid drug., 175, cm, 02/16/23 9:32:00 EDT, Height... Start Date: 02/16/23 Status: Ordered diltiazem 300 mg/24 hours oral capsule, extended release 300 mg, 1, capsule, By Mouth, Daily, # 90 capsule, Refills 3, Tot. Refills 3, Maintenance, 04/28/2210:41:00 EDT, Route to Pharmacy Electronically, [facility], 175, cm, 02/11/22 [...] 0, 0, 09/17/06 2:07:12, Print RENETTA Number, [id number], Constant Indicator Start Date: 09/17/06 Status: Ordered Farxiga 5 mg oral tablet 1 tablet = 5 mg, By Mouth, Daily, # 90 tablet, 3 Refills, Maintenance, 12/13/22 14:14:00 EST, Tablet, [facility], Partial fill upon [...] 11:36:00 EST, Powder, [facility]), 1 puffs Inhalation 2 times a day,x90 days, 176, cm, 10/26/21 9:28:00 EST, Height, 110.6, kg, 10/27/20 13:48:00 EST,... Start Date: 12/21/21 Stop Date: 12/16/22 Status: Ordered fluticasone 50 mcg/inh nasal spray 2 sprays, Nares, Both, Daily in AM, in each nostril, # 16 Gm, 1 Refills, Maintenance, 02/16/23 10:19:00 EDT, [place], [facility], Partial fill upon [...] capsule, 1 Refills, Maintenance, 12/21/21 11:37:00 EST, [facility]), 176, cm, 10/26/21 9:28:00 EST, Height, 110.6, kg, 10/27/20 13:48:00 EST, Dry Weight Start Date: 12/21/21 Status: Ordered Metamucil Powder By Mouth, Daily at bedtime, 0 Refills, Maintenance, 05/08/13 11:48:10 EDT Start Date: 05/08/13 Status: Ordered montelukast 10 mg oral tablet 1, tablet, By Mouth, Daily, # 90 tablet, Refills 3, Tot. Refills 3, 03/10/23 10:02:00 EDT, Route toPharmacy Electronically, [facility], 175, cm, 02/16/23 9:32:00 EDT, Height, 108, kg, 02/11/22 2:26:00 EDT, Dry Weight Start Date: 03/10/23 Status: Ordered omeprazole 20 mg oral enteric coated capsule 1 capsule, By Mouth, Daily, # 90 capsule, 3 Refills, Maintenance, 02/16/23 9:59:00 EDT, [facility], 175, cm, 02/16/23 9:32:00 EDT, Height, 108, kg, 02/11/22 2:26:00 EDT, Dry Weight Start Date: 02/16/23 Status: Ordered Ozempic 2 mg/3 mL (0.25 mg or 0.5 mg dose) subcutaneous solution = 0.5 mg, Subcutaneous Injection, Every week, E11.9 diabetes type 2, # 3 mL, 6 Refills, Maintenance, 03/15/23 15:27:00 EDT, [facility], Partial fill upon [...] EST, Tablet, [facility] ([place]), 1 tablet By Mouth Daily,x90 days, 176, [...] Team Personnel Name: Sujey Pereira RN Position: [facility] RN Member Role: Primary Care Nurse Name: Nickie Calvo RN Position: [facility] RN Member Role: Primary Care Nurse Name: Adeel Dominguez RN Position: [facility] RN Member Role: Primary Care Nurse Name: Tierra Meeks NP Position: Reference Physician Member Role: Primary Care Nurse Address: Address: [address] [place] [address]- [place] Name: Margo Wilkins NP Position: [facility] Outreach Member Role: Primary Care Nurse Address: Address: [address] [place] [address]- [place] Name: Adeel Fountain MD Position: [facility] Primary Care Physician Member Role: PCP Address: Address: [address] [place] [address]- [place] Name: Mindy Santiago RN Position: [facility] RN Member Role: Primary Care Nurse Name: Ramón Olivo MD Position: [facility] Infectious Disease MD Member Role: Lifetime Consulting Physician Address: Address: [address] [place] [address] [place] [address]- Care Team Related Persons Name: RICHARD REDDY Address: [address] [address]
--- OUTSIDE RECORDS SUMMARY | 2024-10-12 12:30 | XMS_ITS | Continuity of Care Document ---
Author Organization [facility] Zackery lt Address [address] [place] [address]- Care Team Providers Care Steward Dishwasher Name Role Phone Adeel Fountain MD Primary Care Physician Encounter [facility] Date(s): 02/06/21 - 03/08/21 [facility] Adult [address] [place] [address]- Allergies, Adverse Reactions, Alerts Substance Reaction Severity Status morphine 1 don't want it Active Percocet 5/325 2 makes me feel like pulling skin off Active 1pt feels like taking his skin off when given morphine 2pt feels like taking his skin off when on percocet Immunizations Given and Recorded Vaccine Date Status Refusal Reason SARS-CoV-2 (COVID-19) mRNA-1273 vaccine 02/19/21 R ecorded SARS-CoV-2 (COVID-19) mRNA-1273 vaccine 01/19/21 R ecorded influenza virus vaccine, inactivated 10/15/19 Give n [...] Note: ADRY 4Admin Note: Biomedical Jon of [facility] 5Admin Note: BIOMEDICAL JON 6Admin Note: GIVEN [...] 02/20/21 14:02:00 EDT, Route to Pharmacy Electronically, [id number], [facility], 176, cm, 02/20/21 13:51:00 EDT, [...] 0, 0, 09/17/06 2:07:12, Print RENETTA Number, [id number], Constant Indicator Start Date: 09/17/06 Status: Ordered Elimite 5% cream 1 application, Topically, Once, # 60 Gm, 0 Refills, Soft Stop, 02/20/21 14:06:00 EDT, [place], [facility], Partial fill upon patient request if the prescription is for a schedule II opioid drug., 1 application Topically Once, 176, cm, ... Start Date: 02/20/21 Status: Ordered finasteride 5 mg oral tablet [...] 3 Refills, Maintenance, 05/06/20 14:07:00 EDT, [place], [facility], 1 puffs Inhalation 2 times a day,x90 days, 175, cm, 05/06/20 13:45:00 EDT, Height, 113, kg, 01/06/20 13:04:00 EST, Dry Weight Start Date: 05/06/20 Stop Date: 05/01/21 Status: Ordered ketoconazole 2% topical cream 1 application, Topically, 2 times a day, # 60 Gm, 2 Refills, Maintenance, 02/20/21 14:06:00 EDT, [place], [facility], Partial fill upon patient request if the prescription is for a schedule II opioid drug., 1 application Topically 2 times a d... Start Date: 02/20/21 Status: Ordered Lotrisone 0.05%-1% cream 1 application, Topically, 2 times a day, # 45 Gm, 0 Refills, Maintenance, 01/29/20 11:18:00 EDT, [place], [facility], 1 application Topically 2 [...] tablet, 3 Refills, Maintenance, 05/06/20 14:05:00EDT, Tablet, [facility], 175, cm, 05/06/20 13:45:00 EDT, Height, 113, kg, 01/06/20 13:04:00 EST, Dry Weight Start Date: 05/06/20 Stop Date: 05/01/21 Status: Ordered omeprazole 20 mg oral enteric coated capsule 1 capsule, By Mouth, Daily, # 90 capsule, 0 Refills, Maintenance, 12/27/20 11:35:00 EST, [facility], 176, cm, 12/22/20 10:41:00 EST, Height, 110.6, kg, 10/27/20 13:48:00 EST, Dry Weight Start Date: 12/27/20 Status: Ordered One Touch Delica Lancets See [...] 90 tablet, Refills 1, Tot. Refills 1, Maintenance, 02/12/21 8:21:00 EDT, Route to Pharmacy Electronically, [facility], 176, cm, 12/22/20 10:41:00 EST, Height, 110.6, kg, 10/27/20 13:48:00 EST, Dry Weight Start Date: 02/12/21 Status: Ordered Spine and Sports Spine and [...] with no history of insulin use(Confirmed) Active 88275; repeat 2022 2Colonoscopy 2013 polyp, repeat 2017 3EGD 2014 positive for gastroparesis. 4egd 2003 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 5upper endo 2014 6admitted [facility] 2009 7s/p left tkr 2011 Social History Social History Type Response Smoking Status Former smoker; Other : quit 1989; entered on: 02/26/18 Sex
--- OUTSIDE RECORDS SUMMARY | 2024-10-12 12:30 | XMS_ITS | Continuity of Care Document ---
Author Organization [facility] Zackery lt Address [address] [place] [address]- Care Team Providers Care Telephone Instrument Supervisor Name Role Phone Adeel Fountain MD Primary Care Physician [phone] [facility]counter [facility] Date(s): 02/23/24 - 03/24/24 [facility] Adult [address] [place] [address]- Allergies, Adverse Reactions, Alerts Substance Reaction Severity [...] RSV vaccine preF3, recombinant 10/05/23 Recorded SARS-CoV-2(COVID-19)mRNA-LNP vac([id number]) 09/22/23 Recorded influenza virus vaccine, inactivated 09/15/23 [...] influenza virus vaccine, inactivated 08/04/13 Goyo rded [id number] 12y+ bivalent booster vax 12/13/22 Given pneumococcal [...] Note: ADRY 4Admin Note: Biomedical Jon of [facility] 5Admin Note: [employer] JON 6Admin Note: GIVEN BY NATALIE 7Admin [...] 12/21/21 11:37:00 EST, Route to Pharmacy Electronically, [id number], [facility]), 176, cm, 10/26/21 9:28:00 EST, H... Start Date: 12/21/21 Status: Ordered cetirizine 10 mg oral tablet 1 tablet = 10 mg, By Mouth, Daily, # 90 tablet, 3 Refills, Maintenance, 04/20/23 13:44:00 EDT, Tablet, [facility] # [facility], Partial fill upon patient request if the prescription is for a schedule II opioid drug., 175, cm, 04/12/23 15:36:00 EDT, Height... Start Date: 04/20/23 Status: Ordered Crestor 5 mg oral tablet 1 tablet = 5 mg, By Mouth, Daily, # 90 tablet, 1 Refills, Maintenance, 03/16/24 16:26:00 EDT, Tablet, [facility] # [facility], Partial fill upon patient request if the prescription is for a schedule II opioid drug., 175, cm, 03/05/24 14:58:00 EDT, Height,... Start Date: 03/16/24 Status: Ordered diltiazem 300 mg/24 hours oral capsule, extended release 300 mg, 1, capsule, By Mouth, Daily, # 90 capsule, Refills 3, Tot. Refills 3, Maintenance, 07/26/2311:47:00 EDT, Route to Pharmacy Electronically, [facility], 175, cm, 06/16/23 9:25:00 [...] 0, 0, 09/17/06 2:07:12, Print RENETTA Number, [id number], Constant Indicator Start Date: 09/17/06 Status: Ordered [...] Gm, 1 Refills, Maintenance, 02/16/23 10:19:00 EDT, [place], [facility], Partial fill upon patient [...] capsule, 1 Refills, Maintenance, 12/21/21 11:37:00 EST, [facility] ([place]), 176, cm, 10/26/21 9:28:00 EST, Height, 110.6, kg, 10/27/20 13:48:00 EST, Dry Weight Start Date: 12/21/21 Status: Ordered Metamucil Powder By Mouth, Daily at bedtime, 0 Refills, Maintenance, 05/08/13 11:48:10 EDT Start Date: 05/08/13 Status: Ordered montelukast 10 mg oral tablet 1, tablet, By Mouth, Daily, # 90 tablet, Refills 1, Maintenance, 01/14/24 12:04:00 EST, Route to Pharmacy Electronically, [facility] # [facility], 175, cm, 12/16/23 13:50:00 EST, Height, 109.6, kg, 05/09/23 12:38:00 EDT, Dry Weight Start Date: 01/14/24 Status: Ordered omeprazole 20 mg oral enteric coated capsule 1 capsule, By Mouth, Daily, # 90 capsule, 1 Refills, Maintenance, 03/09/24 13:03:00 EDT, [facility] # [facility], 175, cm, 03/05/24 14:58:00 EDT, Height, 109.6, kg, 05/09/23 12:38:00 EDT, Dry Weight Start Date: 03/09/24 Status: Ordered Ozempic 2 mg/3 mL (0.25 mg or 0.5 mg dose) subcutaneous solution See Instructions, INJECT 0.5MG UNDER THE SKIN ONCE WEEKLY, # 3 mL, 12 Refills, Maintenance, 01/16/24 15:35:00 EST, [facility], 175, cm, 12/16/23 13:50:00 [...] 3 Refills, Maintenance, 04/12/23 16:08:00 EDT, Powder, [facility] # [facility], Partial fill upon patient request if the prescription is for a schedule II opioid drug., 1... Start Date: 04/12/23 Status: Ordered Zestoretic 25 mg-20 mg oral tablet 1 tablet, By Mouth, Daily, # 90 tablet, 3 Refills, Maintenance, 12/21/21 11:36:00 EST, Tablet, [facility] ([place]), 1 tablet By Mouth Daily,x90 days, 176, [...] 202018; repeat 2022 3Colonoscopy 2013 polyp, repeat 2018 [...] Name: Sujey Pereira RN Position: [facility] RN Member Role: Primary Care Nurse Name: Nickie Calvo RN Position: [facility] RN Member Role: Primary Care Nurse Name: Adeel Dominguez RN Position: [facility] RN Member Role: Primary Care Nurse Name: Tierra Meeks NP Position: Reference Physician Member Role: Primary Care Nurse Address: Address: [address] [place] [address]- Name: Margo Wilkins NP Position: [facility] Outreach Member Role: Primary Care Nurse Address: Address: [address] [place] [address]- Name: Adeel Fountain MD Position: [facility] Physician - Primary Care Member Role: PCP Address: Address: [address] [place] [address]- Name: Mindy Santiago RN Position: S RN Member Role: Primary Care Nurse Name: Ramón Olivo MD Position: [facility] Physician - Infectious Disease Member Role: Lifetime Consulting Physician Address: Address: [address] [place] [address] [place] [address]- Care Team Related Persons Name: RICHARD REDDY Address: [address] [address]
--- OUTSIDE RECORDS SUMMARY | 2024-10-12 12:30 | XMS_ITS | Continuity of Care Document ---
Author Organization [facility] Zackery lt Address [address] [place] [address]- Care Team Providers Care Insurance Claims Supervisor Name Role Phone Adeel Fountain MD Primary Care Physician [phone] [facility] 08[facility]22 - 08/11/22 [facility] Adult [address] [place] [address]- Attending Physician: Adeel Fountain MD Allergies, Adverse [...] Note: ADRY 4Admin Note: Biomedical [facility] of [facility] 5Admin Note: BIOMEDICAL JON 6Admin Note: GIVEN [...] 12/21/21 11:37:00 EST, Route to Pharmacy Electronically, [id number], [facility]), 176, cm, 10/26/21 9:28:00 EST, H... Start Date: 12/21/21 Status: Ordered baclofen 10 mg oral tablet [...] 11:37:00 EST, Tablet, [facility] ([place]), Partial fill upon patient request if the prescription is for aschedule II opioid drug., 176, cm, 10/26/21 9:28:00... Start Date: 12/21/21 Status: Ordered diltiazem 300 mg/24 hours oral capsule, extended release 300 mg, 1, capsule, By Mouth, Daily, # 90 capsule, Refills 3, Tot. Refills 3, Maintenance, 04/28/2210:41:00 EDT, Route to Pharmacy Electronically, [facility], 175, cm, 02/11/22 2:26:00 [...] 0, 0, 09/17/06 2:07:12, Print RENETTA Number, [id number], Constant Indicator Start Date: 09/17/06 Status: Ordered [...] 11:36:00 EST, Powder, [facility] ([place]), 1 puffs Inhalation 2 times a day,x90 [...] capsule, 1 Refills, Maintenance, 12/21/21 11:37:00 EST, [facility] ([place]), 176, cm, 10/26/21 9:28:00 EST, Height, 110.6, kg, 10/27/20 13:48:00 EST, Dry Weight Start Date: 12/21/21 Status: Ordered Metamucil Powder By Mouth, Daily at bedtime, 0 Refills, Maintenance, 05/08/13 11:48:10 EDT Start Date: 05/08/13 Status: Ordered metFORMIN 500 mg oral tablet 1 tablet = 500 mg, By Mouth, 2 times a day, # 180 tablet, 1 Refills, Maintenance, 06/13/22 8:47:00 EDT, [facility] 176, cm, 10/26/21 9:28:00 EST, Height, 110.6, kg, 10/27/20 13:48:00 EST, Dry Weight Start Date: 06/13/22 Stop Date: 12/10/22 Status: Ordered montelukast 10 mg oral tablet 1, tablet, By Mouth, Daily, # 90 tablet, Refills 3, Tot. Refills 3, 12/21/21 11:37:00 EST, [facility], [facility] 176, cm, 10/26/21 9:28:00 EST, Height, 110.6, [...] of insulin use(Confirmed) Active 1EGD 2020; repeat 2023 3Colonoscopy 2013 polyp, repeat 2018 4EGD 2014 positive for gastroparesis. 5egd 2003 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 6upper endo 2014 7admitted [facility] 2009 8s/p left tkr 2011 Vital Signs Most recent to oldest [Reference Range]: 1 Height 175 cm (08/04/22 3:23 PM) Weight 109.1 kg (08/04/22 3:23 PM) Body Mass Index [18.5-24.99] 35.62 *>HHI* (08/04/22 3:23 PM) Blood Pressure [90-138/55-84 mm Hg] 134/ 62mm Hg (08/04/22 3:23 PM) Mode of Delivery (Oxygen) Room air (08/04/22 3:23 PM) Blood pressure sites Arm, left (08/04/22 3:23 PM) Weight Obtained Via Standing scale (08/04/22 3:23 PM) Social History Social History Type Response Smoking Status Former smoker; Other : quit 1989; entered on: 02/26/18 Sex Care Team Personnel Name: Essie CHRISTINA, Adeel Nguyen Address: [address] [place] [address] [place] [address]-
--- OUTSIDE RECORDS SUMMARY | 2024-10-12 12:30 | XMS_ITS | Continuity of Care Document ---
Author Organization [facility] Zackery lt Address [address] [place] [address]- Care Team Providers Care Roller Presser Operator Name Role Phone Adeel Fountain MD Primary Care Physician [phone] Encounter [facility] Date(s): 08/24/21 - 09/23/21 [facility] Adult [address] [place] [address]- Allergies, Adverse Reactions, Alerts Substance Reaction Severity [...] ADRY 4Admin Note: [facility]ical [facility] of [facility] [place]Admin Note: BIOMEDICAL JON 6Admin Note: GIVEN [...] 02/20/21 14:02:00 EDT, Route to Pharmacy Electronically, [id number], [facility], 176, cm, 02/20/21 13:51:00 EDT, [...] 0, 0, 09/17/06 2:07:12, Print RENETTA Number, [id number], Constant Indicator Start Date: 09/17/06 Status: Ordered [...] 3 Refills, Maintenance, 05/06/20 14:07:00 EDT, Powder, [facility], 1 puffs Inhalation 2 times [...] tablet, 3 Refills, Maintenance, 05/06/20 14:05:00EDT, Tablet, [facility], 175, cm, 05/06/20 13:45:00 EDT, Height, 113, kg, 01/06/20 13:04:00 EST, Dry Weight Start Date: 05/06/20 Stop Date: 05/01/21 Status: Ordered metFORMIN HCl 500 MG Oral Tablet metFORMIN HCl 500 MG Oral Tablet, 1, tablet, By Mouth, 2 times a day, # 180 tablet, 1 Refills, 176,cm, 08/21/21 14:31:00 EDT, Height, 110.6, kg, 10/27/20 13:48:00 EST, Dry Weight Start Date: 09/09/21 Status: Ordered metFORMIN HCl 500 MG Oral Tablet metFORMIN HCl 500 MG Oral Tablet, 1, tablet, By Mouth, 2 times a day, # 180 tablet, 0 Refills, Maintenance, 05/26/21 20:29:00 EDT, 176, cm, 04/17/21 9:58:00 EDT, Height, 110.6, kg, 10/27/20 13:48:00 EST, Dry Weight Start Date: 05/26/21 Stop Date: 08/24/21 Status: Ordered montelukast 10 mg oral tablet 1, tablet, By Mouth, Daily, # 90 tablet, Refills 1, Route to Pharmacy Electronically, [facility], 176, cm, 07/24/21 7:50:00 EDT, Height, 110.6, kg, 10/27/20 13:48:00 EST, Dry Weight Start Date: 08/01/21 Status: Ordered omeprazole 20 mg oral enteric coated capsule 1 capsule, By Mouth, Daily, # 90 capsule, 0 Refills, Maintenance, 07/07/21 10:48:00 EDT, [facility], 176, cm, 06/24/21 14:26:00 EDT, Height, 110.6, kg, 10/27/20 13:48:00 EST, Dry Weight Start Date: 07/07/21 Status: Ordered One Touch Delica Lancets See [...] 2003 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 6upper endo 2014 7admitted [facility] 2009 8s/p left tkr 2011 Social History Social History Type Response Smoking Status Former smoker; Other : quit 1989; entered on: 02/26/18 Sex
--- OUTSIDE RECORDS SUMMARY | 2024-10-12 12:30 | XMS_ITS | Continuity of Care Document ---
Author Organization [facility] Zackery lt Address [address] [place] [address]- Care Team Providers Care Securities Broker Name Role Phone Adeel Fountain MD Primary Care Physician [facility] Date[facility]s): 04/06/23 - 05/06/23 [facility] Adult [address] [place] [address]- Allergies, Adverse Reactions, Alerts Substance Reaction Severity Status morphine 1 don't want it Active Percocet 5/325 2 makes me feel like pulling skin off Active 1pt feels like taking his skin off when given morphine 2pt feels like taking his skin off when on percocet Immunizations Given and Recorded Vaccine Date Status Refusal Reason [id number] 12y+ bivalent booster vax 12/13/22 Given pneumococcal [...] Note: ADRY 4Admin Note: Biomedical Jon of [facility] 5Admin Note: BIOMEDICAL JON 6Admin Note: GIVEN [...] 12/21/21 11:37:00 EST, Route to Pharmacy Electronically, [id number], [facility]), 176, cm, 10/26/21 9:28:00 EST, H... [...] 3 Refills, Maintenance, 02/16/23 10:00:00 EDT, Tablet, [facility], Partial fill upon patient request if the prescription is for a schedule IIopioid drug., 175, cm, 02/16/23 9:32:00 EDT, Height... Start Date: 02/16/23 Status: Ordered diltiazem 300 mg/24 hours oral capsule, extended release 300 mg, 1, capsule, By Mouth, Daily, # 90 capsule, Refills 3, Tot. Refills 3, Maintenance, 04/28/2210:41:00 EDT, Route to Pharmacy Electronically, [facility], 175, cm, 02/11/22 [...] 0, 0, 09/17/06 2:07:12, Print RENETTA Number, [phone], Constant Indicator Start Date: 10/28/06 Status: Ordered Farxiga 5 mg oral tablet 1 tablet = 5 mg, By Mouth, Daily, # 90 tablet, 3 Refills, Maintenance, 12/13/22 14:14:00 EST, Tablet, [facility], Partial fill upon [...] Gm, 1 Refills, Maintenance, 02/16/23 10:19:00 EDT, [place], [facility], Partial fill upon [...] capsule, 1 Refills, Maintenance, 12/21/21 11:37:00 EST, [facility] ([place]), 176, cm, 10/26/21 9:28:00 EST, Height, 110.6, kg, 10/27/20 13:48:00 EST, Dry Weight Start Date: 12/21/21 Status: Ordered Metamucil Powder By Mouth, Daily at bedtime, 0 Refills, Maintenance, 05/08/13 11:48:10 EDT Start Date: 05/08/13 Status: Ordered montelukast 10 mg oral tablet 1, tablet, By Mouth, Daily, # 90 tablet, Refills 3, Tot. Refills 3, 03/10/23 10:02:00 EDT, Route toPharmacy Electronically, [facility], 175, cm, 02/16/23 9:32:00 EDT, Height, 108, kg, 02/11/22 2:26:00 EDT, Dry Weight Start Date: 03/10/23 Status: Ordered omeprazole 20 mg oral enteric coated capsule 1 capsule, By Mouth, Daily, # 90 capsule, 3 Refills, Maintenance, 02/16/23 9:59:00 EDT, [facility], 175, cm, 02/16/23 9:32:00 EDT, Height, 108, kg, 02/11/22 2:26:00 EDT, Dry Weight Start Date: 02/16/23 Status: Ordered Ozempic 2 mg/3 mL (0.25 mg or 0.5 mg dose) subcutaneous solution = 0.5 mg, Subcutaneous Injection, Every week, E11.9 diabetes type 2, # 3 mL, 6 Refills, Maintenance, 03/15/23 15:27:00 EDT, [facility], Partial fill upon [...] 11:36:00 EST, Tablet, [facility]), 1 tablet By Mouth Daily,x90 days, [...] of insulin use Confirmed Active 1EGD 2020 00234; repeat 2022 3Colonoscopy 2012 polyp, repeat 2017 4EGD 2014 positive for gastroparesis. 5egd 2003 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 6upper endo 2014 7admitted [facility] 2009 8s/p left tkr 2011 Social History Social History Type Response Smoking Status Former smoker; Other : quit 1989; entered on: 02/26/18 Sex Patient Care team information Care Team Personnel Name: Sujey Pereira RN Position: [facility] RN Member Role: Primary Care Nurse Name: Nickie Calvo RN Position: [facility] RN Member Role: Primary Care Nurse Name: Adeel Dominguez RN Position: [facility] RN Member Role: Primary Care Nurse Name: Tierra Meeks NP Position: Reference Physician Member Role: Primary Care Nurse Address: Address: [address] [place] [phone]- [place] Name: Margo Wilkins NP Position: [facility] Outreach Member Role: Primary Care Nurse Address: Address: [address] [place] [phone]- [place] Name: Adeel Fountain MD Position: [facility] Physician - Primary Care Member Role: PCP Address: Address: [address] [place] [address]- [place] Name: Mindy Santiago RN Position: [facility] RN Member Role: Primary Care Nurse Name: Ramón Olivo MD Position: [facility] Physician - Infectious Disease Member Role: Lifetime Consulting Physician Address: Address: [address] [place] [address] [place] [address]- Care Team Related Persons Name: RICHARD REDDY Address: home [address] [place] [id number]
--- OUTSIDE RECORDS SUMMARY | 2024-10-12 12:30 | XMS_ITS | Continuity of Care Document ---
Author Organization [facility] Zackery lt Address [address] [place] [address]- Care Team Providers Care Internet Sales Associate Name Role Phone Adeel Fountain MD Primary Care Physician [facility] Date(s): 09/28/23 - 10/28/23 [facility] Adult [address] [place] [address]- Attending Physician: Admtr, Ar8 Allergies, Adverse Reactions, Alerts Substance Reaction Severity Status Percocet 5/325 1 makes me feel like pulling skin off Active morphine 2 don't want it Active 1pt feels like taking his skin off when on percocet 2pt feels like taking his skin off when given morphine Immunizations Given and Recorded Vaccine Date Status Refusal Reason SARS-CoV-2(COVID-19)mRNA-LNP vac([id number]) 09/22/23 Recorded influenza virus vaccine, inactivated 09/15/23 [...] influenza virus vaccine, inactivated 08/04/13 Goyo rded [id number] 12y+ bivalent booster vax 12/13/22 Given pneumococcal [...] Note: ADRY 4Admin Note: Biomedical Jon of [facility] 5Admin Note: Rippld JON 6Admin Note: GIVEN BY NATALIE 7Admin [...] 12/21/21 11:37:00 EST, Route to Pharmacy Electronically, [id number], [facility]), 176, cm, 10/26/21 9:28:00 EST, H... Start Date: 12/21/21 Status: Ordered cetirizine 10 mg oral tablet 1 tablet = 10 mg, By Mouth, Daily, # 90 tablet, 3 Refills, Maintenance, 04/20/23 13:44:00 EDT, Tablet, [facility], Partial fill upon patient request if the prescription is for a schedule II opioid drug., 175, cm, 04/12/23 15:36:00 EDT, Height... Start Date: 04/20/23 Status: Ordered Crestor 5 mg oral tablet 1 tablet = 5 mg, By Mouth, Daily, # 90 tablet, 2 Refills, Maintenance, 06/01/23 9:50:00 EDT, Tablet, [facility], Partial fill upon patient request if the prescription is for a schedule II opioid drug., 175, cm, 05/09/23 12:38:00 EDT, Height,... Start Date: 06/01/23 Status: Ordered diltiazem 300 mg/24 hours oral capsule, extended release 300 mg, 1, capsule, By Mouth, Daily, # 90 capsule, Refills 3, Tot. Refills 3, Maintenance, 07/26/2311:47:00 EDT, Route to Pharmacy Electronically, [facility], 175, cm, 06/16/23 9:25:00 [...] 0, 0, 09/17/06 2:07:12, Print RENETTA Number, [id number], Constant Indicator Start Date: 09/17/06 Status: Ordered [...] Gm, 1 Refills, Maintenance, 02/16/23 10:19:00 EDT, [place], [facility], Partial fill upon patient [...] 12/21/21 11:37:00 EST, [facility] ([place]), 176, cm, 10/26/21 9:28:00 EST, Height, 110.6, [...] Maintenance, 09/28/23 9:52:00 EST, Tablet, [facility], Partial fill upon patient request if the prescription is for a schedule II opioid drug., 175, cm, 09/28/23 9:40:00 E... Start Date: 09/28/23 Status: Ordered montelukast 10 mg oral tablet 1, tablet, By Mouth, Daily, # 90 tablet, Refills 1, Tot. Refills 1, 07/04/23 9:32:00 EDT, Route to Pharmacy Electronically, [facility], 175, cm, 06/16/23 9:25:00 EDT, Height, 109.6, kg, 05/09/23 12:38:00 EDT, Dry Weight Start Date: 07/04/23 Status: Ordered omeprazole 20 mg oral enteric coated capsule 1 capsule, By Mouth, Daily, # 90 capsule, 2 Refills, Maintenance, 05/23/23 11:48:00 EDT, [facility], 175, cm, 05/09/23 12:38:00 EDT, Height, 109.6, kg, 05/09/23 12:38:00 EDT, Dry Weight Start Date: 05/23/23 Status: Ordered Patient's Own Meds Maintenance, artichoke [...] 3 Refills, Maintenance, 04/12/23 16:08:00 EDT, Powder, [facility], Partial fill upon patient request if the prescription is for a schedule II opioid drug., 1... Start Date: 04/12/23 Status: Ordered Zestoretic 25 mg-20 mg oral tablet 1 tablet, By Mouth, Daily, # 90 tablet, 3 Refills, Maintenance, 12/21/21 11:36:00 EST, Tablet, [facility] ([place]), 1 tablet By Mouth Daily,x90 days, 176, [...] of insulin use Confirmed Active 1EGD 2020 74219; repeat 2022 3Colonoscopy 2012 polyp, repeat 2017 4EGD 2014 positive for gastroparesis. 5egd 2003 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 6upper endo 2014 7admitted [facility] 2009 8s/p left tkr 2011 Social History Social History Type Response Smoking Status Former smoker, quit more than 30 days ago; Other: quit in 1989; entered on: 05/09/23 Sex History and physical note * Carol Mendoza.: PERFORM Event Display: History and Physical Hospital Authored Date: * Carol Mendoza: PERFORM Event Display: History and Physical Hospital Authored Date: [id number] * Mary Persaud: PERFORM Event Display: History and Physical Hospital Authored Date: [id number] Admission evaluation note * Carol Mendoza: PERFORM Event Display: Admission Note Authored Date: Cardiology * Event Display: EKG Non BH Authored Date: * Event Display: Cardiology Office Note, Non-BH Authored Date: * Event Display: Non BH Cardiovascular Results Authored Date: * Event Display: Cardiology Office Note, Non-BH Authored Date: * Event Display: Cardiology Office Note, Non-BH Authored Date: EKG study * Event Display: EKG Authored Date: Laboratory * Event Display: Non BH Lab Results Authored Date: * Event Display: Non BH Lab Results Authored Date: * Event Display: Non BH Lab Results Authored Date: Cardiology Consult note * Event Display: Consult Note Cardiology Authored Date: Radiology * Event Display: IR Special Procedures, Non-BH Authored Date: * Event Display: CT Scan Abdomen, Non- BH Authored Date: * Event Display: Non BH Radiology Results Authored Date: * Carol Mendoza: PERFORM Event Display: Radiology Results Scanned Authored Date: * Carol Mendoza: PERFORM Event Display: Radiology Results Scanned Authored Date: Note * Mary Persaud: PERFORM Event Display: Discharge/Transfer Note Hospital Authored Date: * Carol Mendoza: PERFORM Event Display: Discharge/Transfer Note Hospital Authored Date: Patient Care team information Care Team Personnel Name: Sujey Pereira RN Position: [facility] RN Member Role: Primary Care Nurse Name: Nickie Calvo RN Position: [facility] SN RN Member Role: Primary Care Nurse Name: Adeel Dominguez RN Position: [facility] RN Member Role: Primary Care Nurse Name: Tierra Meeks NP Position: Reference Physician Member Role: Primary Care Nurse Address: Address: [address] [place] [phone]- [place] Name: Margo Wilkins NP Position: [facility] Outreach Member Role: Primary Care Nurse Address: Address: [address] [place] [phone]- [place] Name: Adeel Fountain MD Position: [facility] Physician - Primary Care Member Role: PCP Address: Address: [address] [place] [phone]- [place] Name: Mindy Santiago RN Position: [facility] RN Member Role: Primary Care Nurse Name: Ramón Olivo MD Position: [facility] Physician - Infectious Disease Member Role: Lifetime Consulting Physician Address: Address: [address] [place] [address] [place] [address]- [place] Care Team Related Persons Name: RICHARD REDDY Address: [address] [place] [address]
--- OUTSIDE RECORDS SUMMARY | 2024-10-12 12:30 | XMS_ITS | Continuity of Care Document ---
Author Organization [facility] Zackery lt Address [address] [place] [address]- Care Team Providers Care Account Executive Sales Representative Name Role Phone Adeel Fountain MD Primary Care Physician [facility]18[facility]22 - 03/20/22 [facility] Adult [address] [place] [address]- Attending Physician: Admtr, Ar8 Allergies, Adverse Reactions, [...] Note: ADRY 4Admin Note: Biomedical Jon of [facility] 5Admin Note: BIOMEDICAL JON 6Admin Note: GIVEN [...] 12/21/21 11:37:00 EST, Route to Pharmacy Electronically, [id number], [facility] ([place]), 176, cm, 10/26/21 9:28:00 EST, H... Start Date: 12/21/21 Status: Ordered CoQ10 = 300 mg, By Mouth, Daily, 0 Refills, Maintenance, 07/04/18 10:56:18 EDT Start Date: 07/04/18 Status: Ordered Crestor 5 mg oral tablet 1 tablet = 5 mg, By Mouth, Daily, # 90 tablet, 3 Refills, Maintenance, 12/21/21 11:37:00 EST, Tablet, [facility] ([place]), Partial fill upon patient request if the prescription is for aschedule II opioid drug., 176, cm, 10/26/21 9:28:00... Start Date: 12/21/21 Status: Ordered diltiazem 300 mg/24 hours oral capsule, extended release 300 mg, 1, capsule, By Mouth, Daily, # 90 capsule, Refills 3, Tot. Refills 3, Maintenance, 12/21/2210:37:00 EST, Route to Pharmacy Electronically, [facility] ([place]), 176, cm, 10/26/21 9:28:00 EST, Height, 110.6, kg, 10/27/20 13:48:00... Start Date: 12/21/21 Status: Ordered doxazosin 4 mg oral tablet 1 tablet = 4 mg, By Mouth, Daily, 0 Refills, Maintenance, 01/30/20 9:12:00 EDT Start Date: 01/30/20 Status: Ordered Ecotrin Low Strength Adult 81 mg oral enteric coated tablet 81, mg, 1, tablet, By Mouth, Daily, 0, 0, 09/17/06 2:07:12, Print RENETTA Number, [id number], Constant Indicator Start Date: 09/17/06 Status: Ordered [...] Refills, Maintenance, 12/21/21 11:36:00 EST, Powder, [facility] ([place]), 1 puffs Inhalation 2 times a day,x90 days, 176, cm, 10/26/21 9:28:00 EST, Height, 110.6, kg, 10/27/20 13:48:00 EST,... Start Date: 12/21/21 Stop Date: 12/16/22 Status: Ordered melatonin 10 mg oral capsule 1 capsule = 10 mg, By Mouth, Daily at bedtime, # 60 capsule, 1 Refills, Maintenance, 12/21/21 11:37:00 EST, [facility] ([place]), 176, cm, 10/26/21 9:28:00 EST, Height, 110.6, kg, 10/27/20 13:48:00 EST, Dry Weight Start Date: 12/21/21 Status: Ordered Metamucil Powder By Mouth, Daily at bedtime, 0 Refills, Maintenance, 05/08/13 11:48:10 EDT Start Date: 05/08/13 Status: Ordered metFORMIN 500 mg oral tablet 1 tablet = 500 mg, By Mouth, 2 times a day, # 180 tablet, 1 Refills, Maintenance, 06/13/22 8:47:00 EDT, Tablet, [facility] 176, cm, 10/26/21 9:28:00 EST, Height, 110.6, kg, 10/27/20 13:48:00 EST, Dry Weight Start Date: 06/13/22 Stop Date: 12/10/22 Status: Ordered montelukast 10 mg oral tablet 1, tablet, By Mouth, Daily, # 90 tablet, Refills 3, Tot. Refills 3, 12/21/21 11:37:00 EST, Route toPharmacy Electronically, [facility] 176, cm, 10/26/21 9:28:00 EST, Height, 110.6, kg, 10/27/20 13:48:00 EST, Dry Weight Start Date: 12/21/21 Status: Ordered omeprazole 20 mg oral enteric coated capsule 1 capsule, By Mouth, Daily, # 90 capsule, 0 Refills, 01/19/22 14:38:00 EST, [facility], 176, cm, 10/26/21 9:28:00 EST, Height, 110.6, kg, 10/27/20 13:48:00 EST, Dry Weight Start Date: 01/19/22 Status: Ordered One Touch Delica Lancets See [...] 11:36:00 EST, Tablet, [facility] ([place]), 1 tablet By Mouth Daily,x90 days, 176, [...] Active Obese class II(Confirmed) Active Obesity(Confirmed) Active MIHCAEL (obstructive sleep apnea)(Confirmed) 02/23/10 Active Osteoarthritis(Confirmed) Active [...] 2017 4EGD 2014 positive for gastroparesis. 5egd 2004 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 6upper endo 2014 7admitted [facility] 2009 8s/p left tkr 2011 Social History Social History Type Response Smoking Status Former smoker; Other : quit 1989; entered on: 02/26/18 Sex
--- OUTSIDE RECORDS SUMMARY | 2024-10-12 12:30 | XMS_ITS | Continuity of Care Document ---
Author Organization [facility] Address [address] [place] [address]- Care Team Providers Care Drier Take Off Tender Name Role Phone Adeel Fountain MD Primary Care Physician [place] [facility] [place]/30/20 - 06/29/20 [facility] [address] [place] [address]- [facility] Attending Physician: Vibha Wallace Admitting Physician: Vibha Wallace Referring Physician: AdmtrVibha Allergies, Adverse Reactions, Alerts Substance Reaction Severity [...] Note: ADRY 4Admin Note: Biomedical Jon of [facility] [place] 5Admin Note: BIOMEDICAL JON 6Admin Note: GIVEN [...] 02/26/18 9:54:20 EDT, Route to Pharmacy Electronically, [id number], [facility] Start Date: 02/26/18 Status: [...] 0, 0, 09/17/06 2:07:12, Print RENETTA Number, [id number], Constant Indicator Start Date: 09/17/06 Status: Ordered [...] 3 Refills, Maintenance, 05/06/20 14:07:00 EDT, [facility], 1 puffs Inhalation 2 times a day,x90 days, 175, cm, 05/06/20 13:45:00 EDT, Height, 113, kg, 01/06/20 13:04:00 EST, Dry Weight Start Date: 05/06/20 Stop Date: 05/01/21 Status: Ordered Lotrisone 0.05%-1% cream 1 application, Topically, 2 times a day, # 45 Gm, 0 Refills, Maintenance, 01/29/20 11:18:00 EDT, [facility], 1 application Topically 2 times [...] tablet, 3 Refills, Maintenance, 05/06/20 14:05:00EDT, Tablet, [facility], 175, cm, 05/06/20 13:45:00 EDT, Height, 113, kg, 01/06/20 13:04:00 EST, Dry Weight Start Date: 05/06/20 Stop Date: 05/01/21 Status: Ordered omeprazole 20 mg oral enteric coated capsule 1 capsule, By Mouth, Daily, # 90 capsule, 0 Refills, Maintenance, 03/25/20 14:11:00 EDT, [facility], 175, cm, 01/30/20 9:09:00 EDT, [...] 01/29/20 11:19:00 EDT, Route to Pharmacy Electronically, [facility], 172, cm, 01/29/20 11:00:00 [...] with no history of insulin use(Confirmed) Active 6[address]; repeat 2022 2Colonoscopy 2013 polyp, repeat 2017 3EGD 2014 positive for gastroparesis. 4egd 2003 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 5upper endo 2014 6admitted [facility] 2009 7s/p left tkr 2011 Social History Social History Type Response Smoking Status Former smoker; Other : quit 1989; entered on: 02/26/18 Sex
--- OUTSIDE RECORDS SUMMARY | 2024-10-12 12:30 | XMS_ITS | Continuity of Care Document ---
Author Organization [facility] Elier Zackery lt Address [address] [place] [address]- Care Team Providers Care Imagery Intelligence Name Role Phone Adeel Fountain MD Primary Care Physician [phone] Encounter [facility] Date(s): 08/02/24 - 09/01/24 [facility] [place] Adult [address] [place] [address]- Allergies, Adverse Reactions, Alerts Substance Reaction Severity Status Percocet 5/325 1 makes me feel like pulling skin off Active morphine 2 don't want it Active 1pt feels like taking his skin off when on percocet 2pt feels like taking his skin off when given morphine Immunizations Given and Recorded Vaccine Date Status Refusal Reason influenza virus vaccine, inactivated 08/22/24 Give n influenza virus vaccine, inactivated 09/15/23 Goyo rded [...] influenza virus vaccine, inactivated 08/04/13 Goyo rded zoster vaccine, inactivated 11/02/23 Recorded RSV vaccine preF3, recombinant 10/05/23 Recorded SARS-CoV-2(COVID-19)mRNA-LNP vac([id number]) 09/22/23 Recorded [id number] 12y+ bivalent booster vax 12/13/22 Given pneumococcal [...] ADRY 4Admin Note: Biomedical Jon of [facility] [place] 5Admin Note: [...] 12/21/21 11:37:00 EST, Route to Pharmacy Electronically, [id number], [facility] ([place]), 176, cm, 10/26/21 9:28:00 EST, H... Start Date: 12/21/21 Status: Ordered cetirizine 10 mg oral tablet 1 tablet, By Mouth, Daily, # 90 tablet, 3 Refills, Maintenance, 07/03/24 15:50:00 EDT, [facility], 175, cm, 03/05/24 14:58:00 EDT, Height, 109.6, kg, 05/09/23 12:38:00 EDT, Dry Weight Start Date: 07/03/24 Status: Ordered Crestor 5 mg oral tablet 1 tablet = 5 mg, By Mouth, Daily, # 90 tablet, 1 Refills, Maintenance, 03/16/24 16:26:00 EDT, Tablet, [facility] # [facility], Partial fill upon patient request if the prescription is for a schedule II opioid drug., 175, cm, 03/05/24 14:58:00 EDT, Height,... Start Date: 03/16/24 Status: Ordered DilTIAZem (Eqv-Cardizem CD) 300 mg/24 hours oral capsule, extended release 1 capsule, By Mouth, Daily, # 90 capsule, 1 Refills, Maintenance, 08/02/24 10:05:00 EDT, [facility], 175, cm, 03/05/24 [...] 0, 0, 09/17/06 2:07:12, Print RENETTA Number, [id number], Constant Indicator Start Date: 09/17/06 Status: Ordered [...] Gm, 1 Refills, Maintenance, 02/16/23 10:19:00 EDT, [place], [facility], Partial fill upon [...] 06/19/24 16:54:00 EDT, Route to Pharmacy Electronically, [facility], Partial fill upon patient requestif the prescription is for a schedule II opioid geovanna... Start Date: 06/19/24 Status: Ordered isosorbide mononitrate 30 mg oral tablet, extended release 30 mg, 1, tablet, By Mouth, Daily in AM, # 30 tablet, Refills 11, Tot. Refills 11, Maintenance, 08/22/24 15:28:00 EDT, Route to Pharmacy Electronically, [facility], Partial fill upon patientrequest if the prescription is for a schedule II op... Start Date: 08/22/24 Status: Ordered melatonin 10 mg oral capsule 1 capsule = 10 mg, By Mouth, Daily at bedtime, # 60 capsule, 1 Refills, Maintenance, 12/21/21 11:37:00 EST, [facility]), 176, cm, 10/26/21 9:28:00 EST, Height, 110.6, kg, 10/27/20 13:48:00 EST, Dry Weight Start Date: 12/21/21 Status: Ordered Metamucil Powder By Mouth, Daily at bedtime, 0 Refills, Maintenance, 05/08/13 11:48:10 EDT Start Date: 05/08/13 Status: Ordered montelukast 10 mg oral tablet 1, tablet, By Mouth, Daily, # 90 tablet, Refills 1, Maintenance, 07/20/24 4:49:00 EDT, Route to Pharmacy Electronically, [facility], 175, cm, 03/05/24 14:58:00 EDT, Height, 109.6, kg, 05/09/23 12:38:00 EDT, Dry Weight Start Date: 07/20/24 Status: Ordered omeprazole 20 mg oral enteric coated capsule 1 capsule, By Mouth, Daily, # 90 capsule, 1 Refills, Maintenance, 03/09/24 13:03:00 EDT, [facility], 175, cm, 03/05/24 14:58:00 EDT, Height, 109.6, kg, 05/09/23 12:38:00 EDT, Dry Weight Start Date: 03/09/24 Status: Ordered Patient's Own Meds Maintenance, artichoke [...] 3 Refills, Maintenance, 04/12/23 16:08:00 EDT, Powder, [facility] # [facility], Partial fill upon patient [...] [facility] center 2009 8s/p left tkr 2011 Social History Social History Type Response Smoking Status Former smoker, quit more than 30 days ago; Other: quit in 1989; entered on: 05/09/23 Sex Patient Care team information Care Team Personnel Name: Sujey Pereira RN Position: [facility] RN Member Role: Primary Care Nurse Name: Nickie Calvo RN Position: [facility] SN RN Member Role: Primary Care Nurse Name: Adeel Dominguez RN Position: [facility] RN Member Role: Primary Care Nurse Name: Tierra Meeks NP Position: Reference Physician Member Role: Primary Care Nurse Address: Address: [address] [place] [phone]- [place] Name: Margo Wilkins NP Position: [facility] Outreach Member Role: Primary Care Nurse Address: Address: [address] [place] [phone]- [place] Name: Adeel Fountain MD Position: [facility] Physician - Primary Care Member Role: PCP Address: Address: [address] [place] [address]- [place] Name: Mindy Santiago RN Position: [facility] RN Member Role: Primary Care Nurse Name: Ramón Olivo MD Position: [facility] Physician - Infectious Disease Member Role: Lifetime Consulting Physician Address: Address: [address] [place] [address] [place] [address]- Care Team Related Persons Name: RICHARD REDDY Address: [address] [address]
--- OUTSIDE RECORDS SUMMARY | 2024-10-12 12:30 | XMS_ITS | Continuity of Care Document ---
Author Organization [facility] Elier Zackery lt Address [address] [place] [address]- Care Team Providers Care Supervisor Mechanic Boilermaking Name Role Phone Adeel Fountain MD Primary Care Physician [place] [facility] [place]23 [place] 10/05/23 [facility] [address] [place] [address]- Attending Physician: Adeel Fountain MD Allergies, Adverse Reactions, Alerts Substance Reaction Severity Status Percocet 5/325 1 makes me feel like pulling skin off Active morphine 2 don't want it Active 1pt feels like taking his skin off when on percocet 2pt feels like taking his skin off when given morphine Immunizations Given and Recorded Vaccine Date Status Refusal Reason SARS-CoV-2(COVID-19)mRNA-LNP vac([id number]) 09/22/23 Recorded influenza virus vaccine, inactivated 09/15/23 [...] 08/06/13 [facility] influenza virus vaccine, inactivated 9/14/13 Goyo rded [id number] 12y+ bivalent booster vax 12/13/22 Given pneumococcal [...] Note: ADRY 4Admin Note: Biomedical Jon of [facility] [place] 5Admin Note: Waynaut JON 6Admin Note: GIVEN BY NATALIE 7Admin [...] 12/21/21 11:37:00 EST, Route to Pharmacy Electronically, [id number], [facility]), 176, cm, 10/26/21 9:28:00 EST, H... Start Date: 12/21/21 Status: Ordered cetirizine 10 mg oral tablet 1 tablet = 10 mg, By Mouth, Daily, # 90 tablet, 3 Refills, Maintenance, 04/20/23 13:44:00 EDT, Tablet, [facility], Partial fill upon patient request if the prescription is for a schedule II opioid drug., 175, cm, 04/12/23 15:36:00 EDT, Height... Start Date: 04/20/23 Status: Ordered Crestor 5 mg oral tablet 1 tablet = 5 mg, By Mouth, Daily, # 90 tablet, 2 Refills, Maintenance, 06/01/23 9:50:00 EDT, Tablet, [facility] # [facility], Partial fill upon patient request if the prescription is for a schedule II opioid drug., 175, cm, 05/09/23 12:38:00 EDT, Height,... Start Date: 06/01/23 Status: Ordered diltiazem 300 mg/24 hours oral capsule, extended release 300 mg, 1, capsule, By Mouth, Daily, # 90 capsule, Refills 3, Tot. Refills 3, Maintenance, 07/26/2311:47:00 EDT, Route to Pharmacy Electronically, [facility], 175, cm, 06/16/23 9:25:00 [...] 0, 0, 09/17/06 2:07:12, Print RENETTA Number, [id number], Constant Indicator Start Date: 09/17/06 Status: Ordered [...] Gm, 1 Refills, Maintenance, 02/16/23 10:19:00 EDT, [place], [facility], Partial fill upon patient [...] 12/21/21 11:37:00 EST, [facility] ([place]), 176, cm, 10/26/21 9:28:00 EST, Height, 110.6, kg, 10/27/20 13:48:00 EST, Dry Weight Start Date: 12/21/21 Status: Ordered Metamucil Powder By Mouth, Daily at bedtime, 0 Refills, Maintenance, 05/08/13 11:48:10 EDT Start Date: 05/08/13 Status: Ordered metFORMIN 1000 mg oral tablet 1 tablet = 1,000 mg, By Mouth, 2 times a day, # 180 tablet, 3 Refills, Maintenance, 09/28/23 9:52:00 EST, Tablet, [facility], Partial fill upon patient request if the prescription is for a schedule II opioid drug., 175, cm, 09/28/23 9:40:00 E... Start Date: 09/28/23 Status: Ordered montelukast 10 mg oral tablet 1, tablet, By Mouth, Daily, # 90 tablet, Refills 1, Tot. Refills 1, 07/04/23 9:32:00 EDT, Route to Pharmacy Electronically, [facility], 175, cm, 06/16/23 9:25:00 EDT, Height, 109.6, kg, 05/09/23 12:38:00 EDT, Dry Weight Start Date: 07/04/23 Status: Ordered omeprazole 20 mg oral enteric coated capsule 1 capsule, By Mouth, Daily, # 90 capsule, 2 Refills, Maintenance, 05/23/23 11:48:00 EDT, [facility], 175, cm, 05/09/23 12:38:00 [...] 3 Refills, Maintenance, 04/12/23 16:08:00 EDT, Powder, [facility] # [facility], Partial fill upon patient request if the prescription is for a schedule II opioid drug., 1... 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 6upper endo 2014 7admitted [facility] 2009 8s/p left tkr 2011 Vital Signs Most recent to oldest [Reference Range]: 1 Height 175 cm (09/28/23 9:40 AM) Weight 105.7 kg (09/28/23 9:40 AM) Oxygen Saturation [94-100 %] 97 % (09/28/23 9:40 AM) Pulse Rate [55-90 bpm] 90 bpm (09/28/23 9:40 AM) Body Mass Index [18.5-24.99 kg/m2] 34.51 kg/m2 *>HHI* (09/28/23 9:40 AM) Blood Pressure [90-138/55-84 mm Hg] 130/ 60mm Hg (09/28/23 9:40 AM) Mode of Delivery (Oxygen) Room air (09/28/23 9:40 AM) Blood pressure sites Arm, left (09/28/23 9:40 AM) Weight Obtained Via Standing scale (09/28/23 9:40 AM) Social History Social History Type Response Smoking Status Former smoker, quit more than 30 days ago; Other: quit in 1989; entered on: 05/09/23 Sex Note * Jenny Solares: PERFORM, SIGN, VERIFY Event Display: Patient Education/Instruction Authored Date: [id number] [facility] *CHUCHO Watkins Clinical Summary Name BONIFACIO REDDY Age 78 Years 1945 PCP Adeel Fountain MD PCP Visit Date 09/28/2023 09:36:00 Additional Instructions: Scheduled Appointments?? Future Appointments ?*[facility] ?Phone:??--?Fax:??-- ?Appt. Date:??10/11/2023?9:00 AM ?Scheduled Provider:??Sujey Arellano ?*[facility]lt ?[address] ?Phone:??--?Fax:??-- ?Appt. Date:??12/16/2023?1:30 PM ?Scheduled Provider:??Adeel Fountain MD Follow-Up Instructions ?? With: Address: When: Adeel Fountain MD Comments: As scheduled Diagnosis Medications: Please continue your medications until treatment is completed or stopped by your provider. Discuss any questions related to medications with your provider. New Medications [facility], [address], [place] [id number], [phone] Metformin (metFORMIN 1000 mg oral tablet) 1 tab(s) Oral twice a day. Refills: 3. Next Dose: Pioglitazone (Actos 45 mg oral tablet) 1 tab(s) Oral Daily. Refills: 3. Next Dose: Medications to Continue with No Changes These medications were not printed or sent to your pharmacy Albuterol (albuterol 0.083% inhalation solution) 3 Milliliter Nebulized inhalation once. in office.Refills: 0. Next Dose: Albuterol (albuterol CFC free 90 mcg/inh inhalation aerosol) 2 puff(s) Inhalation every 6 hours. Refills: 11. Next Dose: Aspirin (Ecotrin Low Strength Adult 81 mg oral enteric coated tablet) 1 tab(s) Oral Daily. Next Dose: Cetirizine (cetirizine 10 mg oral tablet) 1 tab(s) Oral Daily. Refills: 3. Next Dose: Diltiazem (diltiazem 300 mg/24 hours oral capsule, extended release) 1 capsule Oral Daily. Refills:3. Next Dose: Doxazosin (doxazosin 4 mg oral tablet) 1 tab(s) Oral Daily. Next Dose: Durable Medical Equipment (Freestyle Lite Lancets) 90 days DM 2 E11.9 check blood sugar once a day.Refills: 11. Next Dose: Durable Medical Equipment (Freestyle Lite Monitor) 90 days DM 2 E11.9 check blood sugar once a day.Refills: 0. Next Dose: Durable Medical Equipment (Freestyle Lite Test Strips) 90 days DM 2 E11.9 check blood sugar once a day. Refills: 11. Next Dose: Finasteride (finasteride 5 mg oral tablet) 1 tab(s) Oral Daily. Next Dose: Flax (Flax Seed Oil) 1 tab Oral Daily. Next Dose: Fluticasone Nasal (fluticasone 50 mcg/inh nasal spray) 2 spray(s) Nares, Both Daily in the morning.in each nostril. Refills: 1. Next Dose: fluticasone/umeclidinium/vilanterol (Trelegy Ellipta 200 mcg-62.5 mcg-25 mcg/inh inhalation powder)1 puff(s) Inhalation Daily. at the same time every day. REPLACES FLOVENT. Refills: 3. Next Dose: Hydrochlorothiazide-Lisinopril (Zestoretic 25 mg-20 mg oral tablet) 1 tab(s) Oral Daily for 90 Days. Refills: 3. Next Dose: Melatonin (melatonin 10 mg oral capsule) 1 capsule Oral Daily at Bedtime. Refills: 1. Next Dose: Montelukast (montelukast 10 mg oral tablet) 1 tab(s) Oral Daily. Refills: 1. Next Dose: Omeprazole (omeprazole 20 mg oral enteric coated capsule) 1 capsule Oral Daily. Refills: 2. Next Dose: Psyllium (Metamucil Powder) Oral Daily at Bedtime. Next Dose: Pt.'s Own Meds (Patient's Own Meds) artichoke extract 1 tab daily. Next Dose: Rosuvastatin (Crestor 5 mg oral tablet) 1 tab(s) Oral Daily. Refills: 2. Next Dose: Testosterone (testosterone 20.25 mg/1.25 g (1.62%) transdermal gel) 1 pack/packet Topically Daily in the morning. apply to clean, dry, intact skin. Next Dose: No Longer Take the Following Medications dapagliflozin (Farxiga 5 mg oral tablet) 1 tab(s) Oral Daily. Refills: 3. semaglutide (Ozempic 2 mg/3 mL (0.25 mg or 0.5 mg dose) subcutaneous solution) 0.5 Milligram Subcutaneous Injection every week. E11.9 diabetes type 2. Refills: 5. Allergy Info:?? Percocet 5/325; morphine Medications Given This Visit Future Orders ?Thyroid Panel? Order Date:09/28/23?- Complete on or after?09/28/23 ?Comprehensive Metabolic Panel? Order Date:09/28/23?- Complete on or after?09/28/23 ?Direct LDL? Order Date:09/28/23?- Complete on or after?09/28/23 ?Microalbumin Urine? Order Date:09/28/23?- Complete on or after?09/28/23 ?CBC? Order Date:09/28/23?- Complete on or after?09/28/23 ?Hemoglobin A1C (Monitoring)? Order Date:09/28/23?- Complete on or after?09/28/23 Vital Signs Height 175 cm Weight 105.7 kg BMI 34.51 kg/m2 Blood Pressure 130 mm Hg/60 mm Hg Temperature Pulse Rate 90 bpm Respiratory Rate 02 Sat Mode of Delivery 97 %/Room air You can now view a summary of your hospital visit from the comfort of your home through a free online portal called [employer]. [employer] is a website that allows you to securely view your medical information including discharge summary, medications and follow-up visits. ??You can alsosend a secure electronic message to your doctor???s office to request appointments, renew medications or just ask a question. You can enroll at [email or web address] or register during your next office visit. Disclaimer:?? The information provided is of a general nature and is intended to be used in conjunction with the recommendations and advice of your health care practitioner. ??Every effort has been made to ensure that the information provided is accurate and complete at the time it is provided to you however, as your needs change, or, as new ??information becomes available, different or additional instructions may be required. If you have questions, please consult with your primary care provider or pharmacist, as appropriate. ??This information is not intended to serve as substitution for assessment and evaluation by a qualified health care provider. If you do not have a primary care provider, you may find a [facility] provider by calling [facility] at [phone]. [facility], in keeping with [facility] guidance, no longer requires face masks for staff, patientsor visitors in most situations. Similar to time spent indoors at other locations, there is the chance that you were exposed to respiratory viruses during your time with us (such as flu or COVID-19).? If you develop symptoms concerning for a viral respiratory infection, please seek testing (and treatment if indicated) from your medical provider or home test kit. For information about the plan of care including goals and instructions for your diagnosis, please see the patient education orders section of this document. Patient Education Materials?? The content of this educational material or handout may have been modified, supplemented, or adapted from its original content and format to support your individualized medical care. Additional Provider Instructions: Thank you for coming in for your visit. I understand that your diabetic medications have been very expensive and I am going to change your medications to see if we can save you some money. Please stop taking your Ozempic and Farxiga. We will start metformin 1000 mg twice daily along with Actos 45 mg daily to treat your diabetes. We will see you back in November and see how you are doing with the new medication. I would like you to get an RSV vaccine at your pharmacy. I would also like you to get your shinglesvaccine along with shingles vaccine booster in 2 to 6 months. Please check with your pharmacy aboutgetting these vaccines. Patient Care team information Care Team Personnel Name: Sujey Pereira RN Position: [facility] RN Member Role: Primary Care Nurse Name: Nickie Calvo RN Position: [facility] SN RN Member Role: Primary Care Nurse Name: Adeel Dominguez RN Position: [facility] RN Member Role: Primary Care Nurse Name: Tierra Meeks NP Position: Reference Physician Member Role: Primary Care Nurse Address: Address: [address] [place] [phone]- [place] Name: Margo Wilkins NP Position: [facility] Outreach Member Role: Primary Care Nurse Address: Address: [address] [place] [phone]- [place] Name: Adeel Fountain MD Position: [facility] Physician - Primary Care Member Role: PCP Address: Address: [address] [place] [address]- [place] Name: Mindy Santiago RN Position: [facility] RN Member Role: Primary Care Nurse Name: Ramón Olivo MD Position: [facility] Physician - Infectious Disease Member Role: Lifetime Consulting Physician Address: Address: [address] [place] [address] [place] [address]- [place] Care Team Related Persons Name: RICHARD REDDY Address: home [address] [place] [id number]
--- OUTSIDE RECORDS SUMMARY | 2024-10-12 12:31 | XMS_ITS | Continuity of Care Document ---
Author Organization [facility] [place] Zackery lt Address [address] [place] [address]- Care Team Providers Care Executor Of Estate Name Role Phone Adeel Fountain MD Primary Care Physician [place] [facility] [place]14[place]23 - 03/21/23 [facility] [place], operated by [facility] Adult [address] [place] [address]- Attending Physician: Amparo Weir NP Referring Physician: Adeel Fountain MD Allergies, Adverse Reactions, Alerts Substance Reaction Severity Status morphine 1 don't want it Active Percocet 5/325 2 makes me feel like pulling skin off Active 1pt feels like taking his skin off when given morphine 2pt feels like taking his skin off when on percocet Immunizations Given and Recorded Vaccine Date Status Refusal Reason [id number] 12y+ bivalent booster vax 12/13/22 Given pneumococcal [...] 12/21/21 11:37:00 EST, Route to Pharmacy Electronically, [id number], [facility]), 176, cm, 10/26/21 9:28:00 EST, H... Start Date: 12/21/21 Status: Ordered cetirizine 10 mg oral tablet 1 tablet = 10 mg, By Mouth, Daily, # 30 tablet, 1 Refills, Maintenance, 02/16/23 10:18:00 EDT, Tablet, [facility], Partial fill upon patient [...] Refills, Maintenance, 02/16/23 10:00:00 EDT, Tablet, [facility], Partial fill upon patient request if the prescription is for a schedule IIopioid drug., 175, cm, 02/16/23 9:32:00 EDT, Height... Start Date: 02/16/23 Status: Ordered diltiazem 300 mg/24 hours oral capsule, extended release 300 mg, 1, capsule, By Mouth, Daily, # 90 capsule, Refills 3, Tot. Refills 3, Maintenance, 04/28/2210:41:00 EDT, Route to Pharmacy Electronically, [facility], 175, cm, 02/11/22 2:26:00 [...] 0, 0, 09/17/06 2:07:12, Print RENETTA Number, [id number], Constant Indicator Start Date: 09/17/06 Status: Ordered Farxiga 5 mg oral tablet 1 tablet = 5 mg, By Mouth, Daily, # 90 tablet, 3 Refills, Maintenance, 12/13/22 14:14:00 EST, Tablet, [facility], Partial fill upon patient [...] Gm, 1 Refills, Maintenance, 02/16/23 10:19:00 EDT, [place], [facility], Partial fill upon patient [...] 12/21/21 11:37:00 EST, [facility]), 176, cm, 10/26/21 9:28:00 EST, Height, 110.6, kg, 10/27/20 13:48:00 EST, Dry Weight Start Date: 12/21/21 Status: Ordered Metamucil Powder By Mouth, Daily at bedtime, 0 Refills, Maintenance, 05/08/13 11:48:10 EDT Start Date: 05/08/13 Status: Ordered montelukast 10 mg oral tablet 1, tablet, By Mouth, Daily, # 90 tablet, Refills 3, Tot. Refills 3, 03/10/23 10:02:00 EDT, Route toPharmacy Electronically, [facility], 175, cm, 02/16/23 9:32:00 EDT, Height, 108, kg, 02/11/22 2:26:00 EDT, Dry Weight Start Date: 03/10/23 Status: Ordered omeprazole 20 mg oral enteric coated capsule 1 capsule, By Mouth, Daily, # 90 capsule, 3 Refills, Maintenance, 02/16/23 9:59:00 EDT, [facility], 175, cm, 02/16/23 9:32:00 EDT, Height, 108, kg, 02/11/22 2:26:00 EDT, Dry Weight Start Date: 02/16/23 Status: Ordered Ozempic 2 mg/3 mL (0.25 mg or 0.5 mg dose) subcutaneous solution = 0.5 mg, Subcutaneous Injection, Every week, E11.9 diabetes type 2, # 3 mL, 6 Refills, Maintenance, 03/15/23 15:27:00 EDT, 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 6upper endo 2014 7admitted [facility] 2009 8s/p left tkr 2011 Vital Signs Most recent to oldest [Reference Range]: 1 Height 175 cm (03/14/23 6:53 AM) Weight 107 kg (03/14/23 6:53 AM) Oxygen Saturation [94-100 %] 96 % (03/14/23 6:53 AM) Pulse Rate [55-90 bpm] 73 bpm (03/14/23 6:53 AM) Body Mass Index [18.5-24.99 kg/m2] 34.94 kg/m2 *>HHI* (03/14/23 6:53 AM) Blood Pressure [90-138/55-84 mm Hg] 136/ 80mm Hg (03/14/23 6:53 AM) Mode of Delivery (Oxygen) Room air (03/14/23 6:53 AM) Blood pressure sites Arm, left (03/14/23 6:53 AM) Weight Obtained Via Standing scale (03/14/23 6:53 AM) Social History Social History Type Response Smoking Status Former smoker; Other : quit 1989; entered on: 02/26/18 Sex Note * Beck Jenny: PERFORM, SIGN, VERIFY Event Display: Patient Education/Instruction Authored Date: [id number] [facility] *CHUCHO Watkins Clinical Summary Name BONIFACIO REDDY Age 77 Years 1945 PCP Adeel Fountain MD PCP Visit Date 03/14/2023 06:50:00 Additional Instructions: Scheduled Appointments?? Future Appointments ?No Future Appointments Scheduled Follow-Up Instructions ?? With: Address: When: Adeel Fountain MD In 6 months With: Address: When: Sujey Arellano Comments: NPV Diagnosis Problems in relationship with spouse or partner; Type 2 diabetes mellitus without complications; Atherosclerotic heart disease of kaw coronary artery without angina pectoris; Polyneuropathy, unspecified; Essential (primary) hypertension; Pure hypercholesterolemia, unspecified Medications: Please continue your medications until treatment is completed or stopped by your provider. Discuss any questions related to medications with your provider. Medications to Continue Taking That Have Changed These medications were not printed or sent to your pharmacy - Durable Medical Equipment (Freestyle Lite Lancets) 90 days DM 2 E11.9 check blood sugar once a day. Refills: 11. Next Dose: - Durable Medical Equipment (Freestyle Lite Monitor) 90 days DM 2 E11.9 check blood sugar once a day. Refills: 0. Next Dose: - Durable Medical Equipment (Freestyle Lite Test Strips) 90 days DM 2 E11.9 check blood sugar once a day. Refills: 11. Next Dose: Medications to Continue with No [...] tab(s) Oral Daily. Refills: 1. Next Dose: dapagliflozin (Farxiga 5 mg oral tablet) 1 tab(s) Oral Daily. Refills: 3. Next Dose: Diltiazem (diltiazem 300 mg/24 hours oral capsule, extended release) 1 capsule Oral Daily. Refills:3. Next Dose: Doxazosin (doxazosin 4 mg oral tablet) 1 tab(s) Oral Daily. Next Dose: Finasteride (finasteride 5 mg oral tablet) 1 tab(s) Oral Daily. Next Dose: Flax (Flax Seed Oil) 1 tab Oral Daily. Next Dose: Fluticasone (Flovent Diskus 100 mcg/inh inhalation powder) 1 puff(s) Inhalation twice a day for 90 Days. Refills: 3. Next Dose: Fluticasone Nasal (fluticasone 50 mcg/inh nasal spray) 2 spray(s) Nares, Both Daily in the morning.in each nostril. Refills: 1. Next Dose: Hydrochlorothiazide-Lisinopril (Zestoretic 25 mg-20 mg oral tablet) 1 tab(s) Oral Daily for 90 Days. Refills: 3. Next Dose: Melatonin (melatonin 10 mg oral capsule) 1 capsule Oral Daily at Bedtime. Refills: 1. Next Dose: Montelukast (montelukast 10 mg oral tablet) 1 tab(s) Oral Daily. Refills: 3. Next Dose: [place]-3 Polyunsaturated Fatty Acids (Fish Oil) 1,000 Milligram Oral Daily. Next Dose: Omeprazole (omeprazole 20 mg oral enteric coated capsule) 1 capsule Oral Daily. Refills: 3. Next Dose: Psyllium (Metamucil Powder) Oral Daily at Bedtime. Next Dose: Pt.'s Own Meds (Patient's Own Meds) artichoke extract 1 tab daily. Next Dose: Rosuvastatin (Crestor 5 mg oral tablet) 1 tab(s) Oral Daily. Refills: 3. Next Dose: semaglutide (Ozempic 2 mg/1.5 mL (0.25 mg or 0.5 mg dose) subcutaneous solution) 0.5 Milligram Subcutaneous Injection every week for 30 Days. E11.9. Refills: 3. Next Dose: Testosterone (testosterone 20.25 mg/1.25 g (1.62%) transdermal gel) 1 pack/packet Topically Daily in the morning. apply to clean, dry, intact skin. Next Dose: Ubiquinone (CoQ10) 300 Milligram Oral Daily. Next Dose: Allergy Info:?? Percocet 5/325; morphine Medications Given This Visit Future Orders ?Comprehensive Metabolic Panel? Order Date:09/13/23?- Complete by?10/11/23 ?Hemoglobin A1C (Monitoring)? Order Date:09/13/23?- Complete by?10/11/23 ?Lipid Panel? Order Date:09/13/23?- Complete by?10/11/23 ?Uric Acid? Order Date:09/13/23?- Complete by?10/11/23 ?Microalbumin Urine? Order Date:09/13/23?- Complete by?10/11/23 Vital Signs Height 175 cm Weight 107 kg BMI 34.94 kg/m2 Blood Pressure 136 mm Hg/80 mm Hg Temperature Pulse Rate 73 bpm Respiratory Rate 02 Sat Mode of Delivery 96 %/Room air You can now view a summary of your hospital visit from the comfort of your home through a free online portal called Hoblee. Hoblee is a website that allows you to securely view your medical information including discharge summary, medications and follow-up visits. ??You can alsosend a secure electronic message to your doctor???s office to request appointments, renew medications or just ask a question. You can enroll at [email or web address] or register during your next office visit. [...] primary care provider, you may find a [facility] provider by calling [facility] at [phone]. For information about the plan of care including goals and instructions for your diagnosis, please see the patient education orders section of this document. Patient Education Materials?? The content of this educational material or handout may have been modified, supplemented, or adapted from its original content and format to support your individualized medical care. Patient Care team information Care Team Personnel Name: Sujey Pereira RN Position: [facility] RN Member Role: Primary Care Nurse Name: Nickie Calvo RN Position: [facility] RN Member Role: Primary Care Nurse Name: Adeel Dominguez RN Position: [facility] RN Member Role: Primary Care Nurse Name: Tierra Meeks NP Position: Reference Physician Member Role: Primary Care Nurse Address: Address: [address] [place] [address]- [place] Name: Margo Wilkins NP Position: [facility] Outreach Member Role: Primary Care Nurse Address: Address: [address] [place] [address]- [place] Name: Adeel Fountain MD Position: [facility] Primary Care Physician Member Role: PCP Address: Address: [address] [place] [address]- [place] Name: Mindy Santiago RN Position: [facility] RN Member Role: Primary Care Nurse Name: Ramón Olivo MD Position: [facility] Infectious Disease MD Member Role: Lifetime Consulting Physician Address: Address: [address] [place] [address] [place] [address]- Care Team Related Persons Name: RICHARD REDDY Address: [address] [address]
--- OUTSIDE RECORDS SUMMARY | 2024-10-12 12:31 | XMS_ITS | Continuity of Care Document ---
Author Organization [facility] Zackery lt Address [address] [place] [address]- Care Team Providers Care Siderographer Name Role Phone Adeel Fountain MD Primary Care Physician [facility]counter [facility] Date(s): 10/26/21 - 11/25/21 [facility] Adult [address] [place] [address]- Attending Physician: Admtr, Ar8 Allergies, Adverse Reactions, [...] 4Admin Note: [facility] [place]Admin Note: BIOMEDICAL JON 6Admin Note: GIVEN [...] 02/20/21 14:02:00 EDT, Route to Pharmacy Electronically, [id number], [facility], 176, cm, 02/20/21 13:51:00 EDT, Height, 110.... Start Date: 02/20/21 Status: Ordered CoQ10 = 300 mg, By Mouth, Daily, 0 Refills, Maintenance, 07/04/18 10:56:18 EDT Start Date: 07/04/18 Status: Ordered Crestor 5 mg oral tablet 1 tablet = 5 mg, By Mouth, Daily, # 90 tablet, 3 Refills, Maintenance, 10/26/21 9:42:00 EST, Tablet, [facility], Partial fill upon patient [...] 0, 0, 09/17/06 2:07:12, Print RENETTA Number, [id number], Constant Indicator Start Date: 09/17/06 Status: Ordered [...] 3 Refills, Maintenance, 05/06/20 14:07:00 EDT, Powder, [facility], 1 puffs Inhalation 2 [...] tablet, 3 Refills, Maintenance, 05/06/20 14:05:00EDT, Tablet, [facility], 175, cm, 05/06/20 13:45:00 EDT, Height, 113, kg, 01/06/20 13:04:00 EST, Dry Weight Start Date: 05/06/20 Stop Date: 05/01/21 Status: Ordered montelukast 10 mg oral tablet 1, tablet, By Mouth, Daily, # 90 tablet, Refills 3, Tot. Refills 3, 10/26/21 9:41:00 EST, Route to Pharmacy Electronically, [facility], 176, cm, 10/26/21 9:28:00 EST, Height, 110.6, kg, 10/27/20 13:48:00 EST, Dry Weight Start Date: 10/26/21 Status: Ordered omeprazole 20 mg oral enteric coated capsule 1 capsule, By Mouth, Daily, # 90 capsule, 0 Refills, [facility], 176, cm, 08/21/21 14:31:00 EDT, [...] use(Confirmed) Active 1EGD 2020; repeat 2022 3Colonoscopy 2012 polyp, repeat 2017 4EGD 2014 positive for gastroparesis. 5egd 2003 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 6upper endo 2014 7admitted [facility] 2009 8s/p left tkr 2012 Social History Social History Type Response Smoking Status Former smoker; Other : quit 1989; entered on: 02/26/18 Sex
--- OUTSIDE RECORDS SUMMARY | 2024-10-12 12:31 | XMS_ITS | Continuity of Care Document ---
Author Organization [facility] [place] Zackery lt Address [address] [place] [address]- Care Team Providers Care Quality Assurance Supervisor Body Name Role Phone Adeel Fountain MD Primary Care Physician Encounter [facility] [place] Date(s): 04/17/21 - 04/24/21 [facility] [place] Adult [address] [place] [address]- Encounter Diagnosis BPH with urinary obstruction(Discharge Diagnosis) - 04/17/21 CAD (coronary artery disease)(Discharge Diagnosis) - 04/17/21 Deficiency of testosterone biosynthesis(Discharge Diagnosis) - 04/17/21 Gastroesophageal reflux disease with hiatal hernia(Discharge Diagnosis) - 04/17/21 Asthma(Discharge Diagnosis) - 04/17/21 Hypercholesterolemia(Discharge Diagnosis) - 04/17/21 Hypertension(Discharge Diagnosis) - 04/17/21 Type 2 diabetes mellitus without complication, with no history of insulin use (Discharge Diagnosis) - 04/17/21 Attending Physician: Adeel Fountain MD Allergies, Adverse [...] 02/20/21 14:02:00 EDT, Route to Pharmacy Electronically, [id number], [facility], 176, cm, 02/20/21 13:51:00 [...] 0, 0, 09/17/06 2:07:12, Print RENETTA Number, [id number], Constant Indicator Start Date: 09/17/06 Status: Ordered [...] 3 Refills, Maintenance, 05/06/20 14:07:00 EDT, [place], [facility], 1 puffs Inhalation 2 [...] tablet, 3 Refills, Maintenance, 05/06/20 14:05:00EDT, Tablet, [facility], 175, cm, 05/06/20 13:45:00 EDT, Height, 113, kg, 01/06/20 13:04:00 EST, Dry Weight Start Date: 05/06/20 Stop Date: 05/01/21 Status: Ordered omeprazole 20 mg oral enteric coated capsule 1 capsule, By Mouth, Daily, # 90 capsule, 0 Refills, Maintenance, 04/01/21 16:20:00 EDT, [facility], 176, cm, 03/20/21 6:57:00 EDT, Height, 110.6, kg, 10/27/20 13:48:00 EST, Dry Weight Start Date: 04/01/21 Status: Ordered One Touch Delica Lancets See [...] 02/12/21 8:21:00 EDT, Route to Pharmacy Electronically, [facility], 176, cm, 12/22/20 10:41:00 EST, [...] with no history of insulin use(Confirmed) Active 70481; repeat 2022 2Colonoscopy 2013 polyp, repeat 2017 3EGD 2014 positive for gastroparesis. 4egd 2003 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 5upper endo 2014 6admitted [facility] 2009 7s/p left tkr 2011 Diagnosis Diagnosis Type Effective Dates Health Status Clinical Service Informant BPH with urinary obstruction Discharge Diagnosis 04/17/21 CAD (coronary artery disease) Discharge Diagnosis 04/17/21 Deficiency of testosterone biosynthesis Discharge Diagnosis 04/17/21 Gastroesophageal reflux disease with hiatal hernia Discharge Diagnosis 04/17/21 Asthma Discharge Diagnosis 04/17/21 Hypercholesterolemia Discharge Diagnosis 04/17/21 Hypertension Discharge Diagnosis 04/17/21 Type 2 diabetes mellitus without complication, with no history of insulin use Discharge Diagnosis 04/17/21 Vital Signs Most recent to oldest [Reference Range]: 1 Height 176 cm (04/17/21 9:58 AM) Weight 112.3 kg (04/17/21 9:58 AM) Body Mass Index [18.5-24.99] 36.25 *>HHI* (04/17/21 9:58 AM) Blood Pressure [90-138/55-84 mm Hg] 136/ 60mm Hg (04/17/21 9:58 AM) Mode of Delivery (Oxygen) Room air (04/17/21 9:58 AM) Blood pressure sites Arm, left (04/17/21 9:58 AM) Weight Obtained Via Standing scale (04/17/21 9:58 AM) Social History Social History Type Response Smoking Status Former smoker; Other : quit 1989; entered on: 02/26/18 Sex
--- OUTSIDE RECORDS SUMMARY | 2024-10-12 12:31 | XMS_ITS | Continuity of Care Document ---
Author Organization [facility] Zackery lt Address [address] [place] [address]- Care Team Providers Care Magnetic Tape Typewriter Operator Name Role Phone Adeel Fountain MD Primary Care Physician Encounter [facility] Date(s): 04/17/24 - 05/17/24 [facility] [address] [place] [address]- Allergies, Adverse Reactions, Alerts Substance Reaction Severity [...] RSV vaccine preF3, recombinant 10/05/23 Recorded SARS-CoV-2(COVID-19)mRNA-LNP vac([id number]) 09/22/23 Recorded influenza virus vaccine, inactivated 09/15/23 [...] influenza virus vaccine, inactivated 08/04/13 Goyo rded [id number] 12y+ bivalent booster vax 12/13/22 Given pneumococcal [...] Note: ADRY 4Admin Note: [facility]ical [facility] of [facility] [place] 5Admin Note: Ghostery JON 6Admin Note: GIVEN BY NATALIE 7Admin [...] 12/21/21 11:37:00 EST, Route to Pharmacy Electronically, [id number], [facility]), 176, cm, 10/26/21 9:28:00 EST, H... Start Date: 12/21/21 Status: Ordered cetirizine 10 mg oral tablet 1 tablet = 10 mg, By Mouth, Daily, # 90 tablet, 3 Refills, Maintenance, 04/20/23 13:44:00 EDT, Tablet, [facility], Partial fill upon patient request if the prescription is for a schedule II opioid drug., 175, cm, 04/12/23 15:36:00 EDT, Height... Start Date: 04/20/23 Status: Ordered Crestor 5 mg oral tablet 1 tablet = 5 mg, By Mouth, Daily, # 90 tablet, 1 Refills, Maintenance, 03/16/24 16:26:00 EDT, Tablet, [facility], Partial fill upon patient request if the prescription is for a schedule II opioid drug., 175, cm, 03/05/24 14:58:00 EDT, Height,... Start Date: 03/16/24 Status: Ordered diltiazem 300 mg/24 hours oral capsule, extended release 300 mg, 1, capsule, By Mouth, Daily, # 90 capsule, Refills 3, Tot. Refills 3, Maintenance, 07/26/2311:47:00 EDT, Route to Pharmacy Electronically, [facility], 175, cm, 06/16/23 9:25:00 [...] 0, 0, 09/17/06 2:07:12, Print RENETTA Number, [id number], Constant Indicator Start Date: 09/17/06 Status: Ordered [...] Gm, 1 Refills, Maintenance, 02/16/23 10:19:00 EDT, [place], [facility], Partial fill upon patient [...] capsule, 1 Refills, Maintenance, 12/21/21 11:37:00 EST, [facility] 176, cm, 10/26/21 9:28:00 EST, Height, 110.6, kg, 10/27/20 13:48:00 EST, Dry Weight Start Date: 12/21/21 Status: Ordered Metamucil Powder By Mouth, Daily at bedtime, 0 Refills, Maintenance, 05/08/13 11:48:10 EDT Start Date: 05/08/13 Status: Ordered montelukast 10 mg oral tablet 1, tablet, By Mouth, Daily, # 90 tablet, Refills 1, Maintenance, 01/14/24 12:04:00 EST, Route to Pharmacy Electronically, [facility], 175, cm, 12/16/23 13:50:00 EST, Height, 109.6, kg, 05/09/23 12:38:00 EDT, Dry Weight Start Date: 01/14/24 Status: Ordered omeprazole 20 mg oral enteric coated capsule 1 capsule, By Mouth, Daily, # 90 capsule, 1 Refills, Maintenance, 03/09/24 13:03:00 EDT, [facility], 175, cm, 03/05/24 14:58:00 [...] 3 Refills, Maintenance, 04/12/23 16:08:00 EDT, Powder, [facility], Partial fill upon patient request if the prescription is for a schedule II opioid drug., 1... Start Date: 04/12/23 Status: Ordered Zestoretic 25 mg-20 mg oral tablet 1 tablet, By Mouth, Daily, # 90 tablet, 3 Refills, Maintenance, 12/21/21 11:36:00 EST, Tablet, [facility] ([place]), 1 tablet By Mouth Daily,x90 days, 176, [...] 2003 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 6upper endo 2014 7admitted [facility] 2009 8s/p left tkr 2011 Social History Social History Type Response Smoking Status Former smoker, quit more than 30 days ago; Other: quit in 1989; entered on: 05/09/23 Sex Patient Care team information Care Team Personnel Name: Sujey Pereira RN Position: [facility] RN Member Role: Primary Care Nurse Name: Nickie Calvo RN Position: [facility] RN Member Role: Primary Care Nurse Name: Adeel Dominguez RN Position: [facility] RN Member Role: Primary Care Nurse Name: Tierra Meeks NP Position: Reference Physician Member Role: Primary Care Nurse Address: Address: [address] [place] [address]- Name: Margo Wilkins NP Position: [facility] Outreach Member Role: Primary Care Nurse Address: Address: [address] [place] [address]- Name: Adeel Fountain MD Position: [facility] Physician - Primary Care Member Role: PCP Address: Address: [facility] [place] [address]- Name: Mindy Santiago RN Position: S RN Member Role: Primary Care Nurse Name: Ramón Olivo MD Position: [facility] Physician - Infectious Disease Member Role: Lifetime Consulting Physician Address: Address: [address] [place] [address] [place] [address]- Care Team Related Persons Name: RICHARD REDDY Address: [address] [address]
--- OUTSIDE RECORDS SUMMARY | 2024-10-12 12:31 | XMS_ITS | Continuity of Care Document ---
Author Organization [facility] Zackery lt Address [address] [place] [address]- Care Team Providers Care Stave Cutter Name Role Phone Adeel Fountain MD Primary Care Physician Encounter [facility] Date(s): 06/24/21 - 07/24/21 [facility] Adult [address] [place] [address]- Allergies, Adverse Reactions, Alerts Substance Reaction Severity [...] Note: ADRY 4Admin Note: Biomedical Jon of [facility] [place] 5Admin Note: BIOMEDICAL JON 6Admin Note: GIVEN [...] 02/20/21 14:02:00 EDT, Route to Pharmacy Electronically, [id number], [facility], 176, cm, 02/20/21 13:51:00 EDT, Height, 110.... Start Date: 02/20/21 Status: Ordered Cipro 500 mg oral tablet 1 tablet = 500 mg, By Mouth, Every 12 hours, for 14 days, # 28 tablet, 0 Refills, Acute 07/30/21 11:07:00 EDT, 07/16/21 11:07:00 EDT, Tablet, [facility], Partial fill upon patient request if the prescription is for a schedule II opioid drug... Start Date: 07/16/21 Stop Date: 07/30/21 Status: Ordered CoQ10 = 300 mg, By [...] 0, 0, 09/17/06 2:07:12, Print RENETTA Number, [id number], Constant Indicator Start Date: 09/17/06 Status: Ordered [...] 3 Refills, Maintenance, 05/06/20 14:07:00 EDT, Powder, [facility], 1 puffs Inhalation 2 [...] tablet, 3 Refills, Maintenance, 05/06/20 14:05:00EDT, Tablet, [facility], 175, cm, 05/06/20 13:45:00 [...] Date: 05/26/21 Stop Date: 08/24/21 Status: Ordered omeprazole 20 mg oral enteric coated capsule 1 capsule, By Mouth, Daily, # 90 capsule, 0 Refills, Maintenance, 07/07/21 10:48:00 EDT, [facility], 176, cm, 06/24/21 14:26:00 EDT, [...] 02/12/21 8:21:00 EDT, Route to Pharmacy Electronically, [facility], 176, cm, 12/22/20 10:41:00 [...] with no history of insulin use(Confirmed) Active 02683; repeat 2022 2Colonoscopy 2013 polyp, repeat 2017 3EGD 2014 positive for gastroparesis. 4egd 2003 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 5upper endo 2014 [facility] 7s/p left tkr 2012 Social History Social History Type Response Smoking Status Former smoker; Other : quit 1989; entered on: 02/26/18 Sex
--- OUTSIDE RECORDS SUMMARY | 2024-10-12 12:31 | XMS_ITS | Continuity of Care Document ---
Author Organization [facility] Elier Zackery lt Address [address] [place] [address]- Care Team Providers Care Speech Pathology Teacher Name Role Phone Adeel Fountain MD Primary Care Physician [facility]19 [facility] Eric Farooqley Adult [address] [place] [address]- [facility] Attending Physician: Adeel Fountain MD Allergies, Adverse [...] 2Result Comment: [08/27/2015] HIGH DOSE 3Admin Note: TEREBETTY 4Admin Note: Biomedical [facility] [...] 02/26/18 9:54:20 EDT, Route to Pharmacy Electronically, [id number], [facility] Start [...] 0, 0, 09/17/06 2:07:12, Print RENETTA Number, [id number], Constant Indicator Start Date: 09/17/06 Status: Ordered [...] 2 times a day, # 12 Gm, 0 Refills, Maintenance, 04/03/19 15:28:31 EDT, Aerosol Start Date: 04/03/19 Status: Ordered Lotrisone 0.05%-1% cream 1 application, Topically, 2 times a day, # 45 Gm, 0 Refills, Maintenance, 10/26/17 8:37:29, Cream, 1 application Topically 2 times [...] TAKE 1 CAPSULE BY MOUTH ONCE DAILY, [facility]90 Start Date: 09/04/19 Status: Ordered Patient's Own Meds Maintenance, artichoke extract 1 tab daily, 07/04/18 11:15:51 EDT Start Date: 07/04/18 Status: Ordered Testosterone Cypionate Inj Intramuscular, every 10 weeks, 0 Refills, Maintenance, 10/11/17 17:27:29 EST Start Date: 11/21/17 Status: Ordered Vitamin D3 oral tablet 1 [...] Acute subdural hematoma(Confirmed) Active Thoracic spondylosis(Confirmed) Active 57533; repeat 2022 2Colonoscopy 2013 polyp, repeat 2017 3EGD 2014 positive for gastroparesis. 4egd 2003 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 5upper endo 2014 6admitted [facility] 2009 7s/p left tkr 2011 Vital Signs Most recent to oldest [Reference Range]: 1 2 Height 172 cm (10/29/19 10:16 AM) 172 cm (10/29/19 9:48 AM) Weight 114.9 kg (10/29/19 9:48 AM) Oxygen Saturation [94-100 %] 98 % (10/29/19 9:48 AM) Pulse Rate [55-90 bpm] 76 bpm (10/29/19 9:48 AM) Body Mass Index [18.5-24.99] 38.84 *>HHI* (10/29/19 9:48 AM) Blood Pressure [90-138/55-84 mm Hg] 130/ 60mm Hg (10/29/19 10:16 AM) 148/60mm Hg *H* (10/29/19 9:48 AM) Mode of Delivery (Oxygen) Room air (10/29/19 9:48 AM) Blood pressure sites Arm, left (10/29/19 9:48 AM) Weight Obtained Via Standing scale (10/29/19 9:48 AM) Social History Social History Type Response Smoking Status Former smoker; Other : quit 1989; entered on: 02/26/18 Sex
--- OUTSIDE RECORDS SUMMARY | 2024-10-12 12:31 | XMS_ITS | Continuity of Care Document ---
Author Organization [facility] Elier Zackery lt Address [address] [place] [address]- Care Team Providers Care Pigment Furnace Tender Name Role Phone Adeel Fountain MD Primary Care Physician [facility] 12[facility]19 - 01/05/20 [facility] Eric Farooqley Adult [address] [place] [address]- [facility] Attending Physician: Admtr, Ar8 Allergies, Adverse Reactions, Alerts Substance Reaction Severity Status morphine 1 don't want it Active Percocet 5/ 2 makes me feel like pulling skin [...] Note: ADRY 4Admin Note: Biomedical Jon of [facility] 5Admin Note: BIOMEDICAL JON 6Admin Note: GIVEN [...] 02/26/18 9:54:20 EDT, Route to Pharmacy Electronically, [id number], [facility]278 Start Date: 02/26/18 Status: [...] 0, 0, 09/17/06 2:07:12, Print RENETTA Number, [id number], Constant Indicator Start Date: 09/17/06 Status: Ordered [...] 11 Refills, Maintenance, 12/26/19 10:25:00 EST, Aerosol, [facility], 172, cm, 12/26/19 10:08:00 EST, [...] TAKE 1 CAPSULE BY MOUTH ONCE DAILY, [facility]278 Start Date: 09/04/19 Status: Ordered [...] Acute subdural hematoma(Confirmed) Active Thoracic spondylosis(Confirmed) Active 35956; repeat 2022 2Colonoscopy 2013 polyp, repeat 2017 3EGD 2014 positive for gastroparesis. 4egd 2003 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 5upper endo 2014 6admitted [facility] 2009 7s/p left tkr 2011 Social History Social History Type Response Smoking Status Former smoker; Other : quit 1989; entered on: 02/26/18 Sex
--- OUTSIDE RECORDS SUMMARY | 2024-10-12 12:31 | XMS_ITS | Continuity of Care Document ---
Author Organization [facility] Zackery lt Address [address] [place] [address]- Care Team Providers Care Power Plant Operations Manager Name Role Phone Adeel Fountain MD Primary Care Physician [phone] Encounter [facility] Date(s): 10/29/22 - 11/05/22 [facility] Adult [address] [place] [address]- Encounter Diagnosis Asthma(Discharge Diagnosis) - 10/29/22 Attending Physician: Cary STEREO OPERATOR, Katheryn Allergies, Adverse Reactions, Alerts Substance Reaction [...] Note: ADRY 4Admin Note: Biomedical Jon of [facility] 5Admin Note: BIOMEDICAL JON 6Admin Note: [...] 12/21/21 11:37:00 EST, Route to Pharmacy Electronically, [id number], [facility]), 176, cm, 10/26/21 9:28:00 EST, H... Start Date: 12/21/21 Status: Ordered azithromycin 250 mg oral tablet See Instructions, Take 2 tablets on day 1 and 1 tablet daily for next 4 days, # 6 tablet, 0 Refills, Maintenance, 08/31/22 13:38:00 EDT, Tablet, [facility], Partial fill upon [...] 3 Refills, Maintenance, 12/21/21 11:37:00 EST, Tablet, [facility], Partial fill upon patient request if the prescription is for aschedule II opioid drug., 176, cm, 10/26/21 9:28:00... Start Date: 12/21/21 Status: Ordered diltiazem 300 mg/24 hours oral capsule, extended release 300 mg, 1, capsule, By Mouth, Daily, # 90 capsule, Refills 3, Tot. Refills 3, Maintenance, 04/28/2210:41:00 EDT, Route to Pharmacy Electronically, [facility], 175, cm, 02/11/22 [...] 0, 0, 09/17/06 2:07:12, Print RENETTA Number, [id number], Constant Indicator Start Date: 09/17/06 Status: Ordered [...] 11:36:00 EST, Powder, [facility]), 1 puffs Inhalation 2 times a [...] capsule, 1 Refills, Maintenance, 12/21/21 11:37:00 EST, [facility] ([place]), 176, cm, 10/26/21 9:28:00 EST, Height, 110.6, kg, 10/27/20 13:48:00 EST, Dry Weight Start Date: 12/21/21 Status: Ordered Metamucil Powder By Mouth, Daily at bedtime, 0 Refills, Maintenance, 05/08/13 11:48:10 EDT Start Date: 05/08/13 Status: Ordered metFORMIN 500 mg oral tablet 1 tablet = 500 mg, By Mouth, 2 times a day, # 180 tablet, 1 Refills, Maintenance, 10/19/22 14:49:00EST, Tablet, [facility] 5278, 175, cm, 09/28/22 10:09:00 EST, Height, 108, kg, 02/11/22 2:26:00 EDT, Dry Weight Start Date: 10/19/22 Stop Date: 04/17/23 Status: Ordered metFORMIN 500 mg oral tablet 1 tablet = 500 mg, By Mouth, 2 times a day, for 90 days, # 180 tablet, 1 Refills, Hard Stop 12/10/22 8:47:00 EST, 06/13/22 8:47:00 EDT, Tablet, [facility]), 176, cm, 10/26/21 9:28:00 EST, Height, 110.6, kg, 10/27/20 13:48:00 EST,... Start Date: 06/13/22 Stop Date: 12/10/22 Status: Ordered montelukast 10 mg oral tablet 1, tablet, By Mouth, Daily, # 90 tablet, Refills 3, Tot. Refills 3, 12/21/21 11:37:00 EST, Route toPharmacy Electronically, [facility] 176, cm, 10/26/21 9:28:00 EST, Height, 110.6, [...] days, # 10 tablet, 0 Refills, Acute 11/10/22 13:12:00 EST, 11/05/22 13:12:00 EST, Tablet, [facility], Partial fill upon patient request if the prescription is for a schedule II opioid drug.,... Start Date: 11/05/22 Stop Date: 11/10/22 Status: Ordered Spine and Sports Spine and Sports, See Instructions, # 20 each, Refills 0, Tot. Refills 0, Maintenance, Eval and treata 20 visits, 12/14/19 11:35:00 EST, Compound Start Date: 12/14/19 Status: Ordered Tessalon Perles 100 mg oral capsule 1 capsule = 100 mg, By Mouth, 3 times a day, for 7 days, # 21 capsule, 0 Refills, Acute 11/12/22 13:12:00 EST, 11/05/22 13:12:00 EST, Capsule, [facility], Partial fill upon patient requestif the prescription is for a schedule II opioid geovanna... Start Date: 11/05/22 Stop Date: 11/12/22 Status: Ordered testosterone 20.25 mg/1.25 g (1.62%) transdermal gel 1 pack/packet, Topically, Daily in AM, apply to clean, dry, intact skin, 0 Refills, Maintenance, 01/29/20 11:14:00 EDT, Gel Start Date: 01/29/20 Status: Ordered Zestoretic 25 mg-20 mg oral tablet 1 tablet, By Mouth, Daily, # 90 tablet, 3 Refills, Maintenance, 12/21/21 11:36:00 EST, Tablet, [facility]), 1 tablet By Mouth Daily,x90 days, 176, [...] Confirmed Active 1EGD 202018; repeat 2022 3Colonoscopy 2012 polyp, repeat 2017 4EGD 2014 positive for gastroparesis. 5egd 2003 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 6upper endo 2014 7admitted [facility] 2009 8s/p left tkr 2011 Diagnosis Diagnosis Type Effective Dates Health Status Clini ciro Service Informant Asthma Discharge Diagnosis 10/29/22 Vital Signs Most recent to oldest [Reference Range]: 1 Height 175 cm (10/29/22 3:46 PM) Social History Social History Type Response Smoking Status Former smoker; Other : quit 1989; entered on: 02/26/18 Sex Patient Care team information Care Team Personnel Name: Sujey Pereira RN Position: [facility] RN Member Role: Primary Care Nurse Name: Nickie Calvo RN Position: [facility] RN Member Role: Primary Care Nurse Name: Adele Dominguez RN Position: [facility] RN Member Role: Primary Care Nurse Name: Tierra Meeks NP Position: [facility] PCO Associate Professional Member Role: Primary Care Nurse Name: Margo Wilkins NP Position: [facility] Associate Professional Member Role: Primary Care Nurse Address: Address: [address] [place] [address] [place] [address]- [place] Name: Adeel Fountain MD Position: [facility] Primary Care Physician Member Role: PCP Address: Address: [address] [place] [address]- [place] Name: Mindy Santiago RN Position: [facility] RN Member Role: Primary Care Nurse Name: Ramón Olivo MD Position: [facility] Infectious Disease MD Member Role: Lifetime Consulting Physician Address: Address: [address] [place] [address] [place] [address]- Care Team Related Persons Name: BARRYRICHARD POSADA Address: [address] [address]
--- OUTSIDE RECORDS SUMMARY | 2024-10-12 12:31 | XMS_ITS | Continuity of Care Document ---
Author Organization [facility] Elier Zackery lt Address [address] [place] [address]- Care Team Providers Care Parachute Accessories Attacher Name Role Phone Adeel Fountain MD Primary Care Physician [facility] 08[facility]21 - 09/20/21 [facility] [place] Adult [address] [place] [address]- Attending Physician: Admtr, Ar8 Allergies, Adverse Reactions, [...] Note: ADRY 4Admin Note: Biomedical Jon of [facility] 5Admin Note: BIOMEDICAL JON 6Admin Note: GIVEN [...] 02/20/21 14:02:00 EDT, Route to Pharmacy Electronically, [id number], [facility], 176, cm, 02/20/21 13:51:00 [...] 0, 0, 09/17/06 2:07:12, Print RENETTA Number, [id number], Constant Indicator Start Date: 09/17/06 Status: Ordered [...] 3 Refills, Maintenance, 05/06/20 14:07:00 EDT, Powder, [facility], 1 puffs Inhalation 2 [...] tablet, 3 Refills, Maintenance, 05/06/20 14:05:00EDT, Tablet, [facility], 175, cm, 05/06/20 13:45:00 [...] tablet, Refills 1, Route to Pharmacy Electronically, [facility], 176, cm, 07/24/21 7:50:00 EDT, Height, 110.6, kg, 10/27/20 13:48:00 EST, Dry Weight Start Date: 08/01/21 Status: Ordered omeprazole 20 mg oral enteric coated capsule 1 capsule, By Mouth, Daily, # 90 capsule, 0 Refills, Maintenance, 07/07/21 10:48:00 EDT, [facility], 176, cm, 06/24/21 14:26:00 [...] 2003 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 6upper endo 2014 7admitted [facility] 2009 8s/p left tkr 2011 Social History Social History Type Response Smoking Status Former smoker; Other : quit 1989; entered on: 02/26/18 Sex
--- OUTSIDE RECORDS SUMMARY | 2024-10-12 12:31 | XMS_ITS | Continuity of Care Document ---
Author Organization [facility] Zackery lt Address [address] [place] [address]- Care Team Providers Care Gifted Teacher Name Role Phone Adeel Fountain MD Primary Care Physician [phone] [facility]s): 05/04/22 - 06/03/22 [facility] Adult [address] [place] [address]- Allergies, Adverse Reactions, Alerts Substance Reaction Severity [...] 3Admin Note: ADRY 4Admin Note: Biomedical Jon [facility] 5Admin Note: BIOMEDICAL JON 6Admin Note: GIVEN [...] 12/21/21 11:37:00 EST, Route to Pharmacy Electronically, [id number], [facility] ([place]), 176, cm, 10/26/21 9:28:00 EST, H... Start Date: 12/21/21 Status: Ordered CoQ10 = 300 mg, By Mouth, Daily, 0 Refills, Maintenance, 07/04/18 10:56:18 EDT Start Date: 07/04/18 Status: Ordered Crestor 5 mg oral tablet 1 tablet = 5 mg, By Mouth, Daily, # 90 tablet, 3 Refills, Maintenance, 12/21/21 11:37:00 EST, Tablet, [facility] Partial fill upon patient request if the prescription is for aschedule II opioid drug., 176, cm, 10/26/21 9:28:00... Start Date: 12/21/21 Status: Ordered diltiazem 300 mg/24 hours oral capsule, extended release 300 mg, 1, capsule, By Mouth, Daily, # 90 capsule, Refills 3, Tot. Refills 3, Maintenance, 04/28/2210:41:00 EDT, Route to Pharmacy Electronically, [facility], 175, cm, 02/11/22 2:26:00 [...] 0, 0, 09/17/06 2:07:12, Print RENETTA Number, [id number], Constant Indicator Start Date: 09/17/06 Status: Ordered [...] 11:36:00 EST, Powder, [facility]), 1 puffs Inhalation 2 times a [...] 12/21/21 11:37:00 EST, [facility]), 176, cm, 10/26/21 9:28:00 EST, Height, 110.6, kg, 10/27/20 13:48:00 EST, Dry Weight Start Date: 12/21/21 Status: Ordered Metamucil Powder By Mouth, Daily at bedtime, 0 Refills, Maintenance, 05/08/13 11:48:10 EDT Start Date: 05/08/13 Status: Ordered metFORMIN 500 mg oral tablet 1 tablet = 500 mg, By Mouth, 2 times a day, # 180 tablet, 1 Refills, Maintenance, 06/13/22 8:47:00 EDT, Tablet, [facility] ([place]), 176, cm, 10/26/21 9:28:00 EST, Height, 110.6, kg, 10/27/20 13:48:00 EST, Dry Weight Start Date: 06/13/22 Stop Date: 12/10/22 Status: Ordered montelukast 10 mg oral tablet 1, tablet, By Mouth, Daily, # 90 tablet, Refills 3, Tot. Refills 3, 12/21/21 11:37:00 EST, Route toPharmacy Electronically, [facility] ([place]), 176, cm, 10/26/21 9:28:00 EST, Height, 110.6, [...] 2003 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 6upper endo 2014 7admitted [facility] 2009 8s/p left tkr 2011 Social History Social History Type Response Smoking Status Former smoker; Other : quit 1989; entered on: 02/26/18 Sex
--- OUTSIDE RECORDS SUMMARY | 2024-10-12 12:31 | XMS_ITS | Continuity of Care Document ---
Author Organization [facility] Zackery lt Address [address] [place] [address]- Care Team Providers Care Tube Room Cashier Name Role Phone Adeel Fountain MD Primary Care Physician [phone] [facility] 12[facility]19[facility]22 - 01/18/23 [facility] [place] Adult [address] [place] [address]- Allergies, Adverse Reactions, Alerts Substance Reaction Severity Status Percocet 5/325 1 makes me feel like pulling skin off Active morphine 2 don't want it Active 1pt feels like taking his skin off when on percocet 2pt feels like taking his skin off when given morphine Immunizations Given and Recorded Vaccine Date Status Refusal Reason [id number] 12y+ bivalent booster vax 12/13/22 Given pneumococcal [...] Note: ADRY 4Admin Note: Biomedical Jon of [facility] 5Admin Note: BIOMEDICAL JON 6Admin Note: GIVEN [...] 12/21/21 11:37:00 EST, Route to Pharmacy Electronically, [id number], [facility]), 176, cm, 10/26/21 9:28:00 EST, H... Start Date: 12/21/21 Status: Ordered CoQ10 = 300 mg, By Mouth, Daily, 0 Refills, Maintenance, 07/04/18 10:56:18 EDT Start Date: 07/04/18 Status: Ordered Crestor 5 mg oral tablet 1 tablet = 5 mg, By Mouth, Daily, # 90 tablet, 3 Refills, Maintenance, 12/21/21 11:37:00 EST, [facility] Partial fill upon patient request if the prescription is for aschedule II opioid drug., 176, cm, 10/26/21 9:28:00... Start Date: 12/21/21 Status: Ordered diltiazem 300 mg/24 hours oral capsule, extended release 300 mg, 1, capsule, By Mouth, Daily, # 90 capsule, Refills 3, Tot. Refills 3, Maintenance, 04/28/2210:41:00 EDT, Route to Pharmacy Electronically, [facility], 175, cm, 02/11/22 2:26:00 [...] 0, 0, 09/17/06 2:07:12, Print RENETTA Number, [id number], Constant Indicator Start Date: 09/17/06 Status: Ordered Farxiga 5 mg oral tablet 1 tablet = 5 mg, By Mouth, Daily, # 90 tablet, 3 Refills, Maintenance, 12/13/22 14:14:00 EST, Tablet, [facility], Partial fill upon patient request if the prescription is for a schedule IIopioid drug., 175, cm, 12/13/22 13:50:00 EST, Karin... Start Date: 12/13/22 Status: Ordered finasteride 5 [...] 11:36:00 EST, Powder, [facility] ([place]), 1 puffs Inhalation 2 times a day,x90 [...] capsule, 1 Refills, Maintenance, 12/21/21 11:37:00 EST, [facility] ([place]), 176, cm, 10/26/21 9:28:00 EST, Height, 110.6, kg, 10/27/20 13:48:00 EST, Dry Weight Start Date: 12/21/21 Status: Ordered Metamucil Powder By Mouth, Daily at bedtime, 0 Refills, Maintenance, 05/08/13 11:48:10 EDT Start Date: 05/08/13 Status: Ordered montelukast 10 mg oral tablet 1, tablet, By Mouth, Daily, # 90 tablet, Refills 3, Tot. Refills 3, 12/21/21 11:37:00 EST, Route toPharmacy Electronically, [facility] ([place]), 176, cm, 10/26/21 9:28:00 [...] Dry Weight Start Date: 05/27/21 Status: Ordered Ozempic 2 mg/1.5 mL (0.25 mg or 0.5 mg dose) subcutaneous solution = 0.5 mg, Subcutaneous Injection, Every week, E11.9, # 1.5 mL, 3 Refills, Maintenance, 12/15/22 7:55:00 EST, [facility], Partial fill upon patient request if the prescription is for a schedule II opioid drug. E11.9, 0.5 mg Subcutaneous Inje... Start Date: 12/15/22 Stop Date: 04/14/23 Status: Ordered Patient's Own Meds Maintenance, artichoke [...] clean, dry, intact skin, 0 Refills, Maintenance, 03/10/20 11:14:00 EDT, Gel Start Date: 01/29/20 Status: [...] spondylosis Confirmed Active Night sweats Confirmed Active Obesity Confirmed Active MICHAEL (obstructive sleep apnea) Confirmed 02/23/10 Active Osteoarthritis Confirmed Active Peripheral neuropathy Confirmed Active Rhinitis Confirmed Active S/P TKR (total knee replacement) 8 Confirmed Active S/P TURP (transurethral resection of prostate) Confirmed Active Left sided sciatica Confirmed Active Severe obesity (BMI 35.0-39.9) with comorbidity Confirmed Active Sleeping difficulty Confirmed 05/08/13 Active Acute subdural hematoma Confirmed Active Thoracic spondylosis Confirmed Active Type 2 diabetes mellitus without complication, with no history of insulin use Confirmed Active 1EGD 2020; repeat 2022 3Colonoscopy 2013 polyp, repeat 2017 4EGD 2014 positive for gastroparesis. 5egd 2003 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 6upper endo 2014 7admitted [facility] 2009 8s/p left tkr 2012 Social History Social History Type Response Smoking Status Former smoker; Other : quit 1989; entered on: 02/26/18 Sex Patient Care team information Care Team Personnel Name: Sujey Pereira RN Position: [facility] RN Member Role: Primary Care Nurse Name: Nickie Calvo RN Position: [facility] SN RN Member Role: Primary Care Nurse Name: Alberto RNAdeel Position: [facility] RN Member Role: Primary Care Nurse Name: Jeanna BELLOWS ASSEMBLER, [place] Position: Reference Physician Member Role: Primary Care Nurse Address: Address: [address] [place] [phone]- [place] Name: Essie CHRISTINA, Adeel Nguyen Position: [facility] Primary Care Physician Member Role: PCP Address: Address: [address] [place] [phone]- [place] Name: Mindy Santiago RN Position: [facility] RN Member Role: Primary Care Nurse Name: Ramón Olivo MD Position: [facility] Infectious Disease MD Member Role: Lifetime Consulting Physician Address: Address: [address] [place] [address] [place] [address]- Care Team Related Persons Name: RICHARD REDDY Address: home [address] [place] [id number]
--- OUTSIDE RECORDS SUMMARY | 2024-10-12 12:31 | XMS_ITS | Continuity of Care Document ---
Author Organization [facility] Zackery lt Address [address] [place] [address]- Care Team Providers Care Scheduler Maintenance Name Role Phone Adeel Fountain MD Primary Care Physician [phone] Encounter [facility] Date(s): 02/20/21 - 03/22/21 [facility] Adult [address] [place] [address]- Allergies, Adverse Reactions, Alerts Substance Reaction Severity [...] 02/20/21 14:02:00 EDT, Route to Pharmacy Electronically, [id number], [facility], 176, cm, 02/20/21 13:51:00 [...] 0, 0, 09/17/06 2:07:12, Print RENETTA Number, [id number], Constant Indicator Start Date: 09/17/06 Status: Ordered Elimite 5% cream 1 application, Topically, Once, # 60 Gm, 0 Refills, Soft Stop, 02/20/21 14:06:00 EDT, Cream, [facility], Partial fill upon patient [...] 3 Refills, Maintenance, 05/06/20 14:07:00 EDT, Powder, [facility], 1 puffs Inhalation 2 times a day,x90 days, 175, cm, 05/06/20 13:45:00 EDT, Height, 113, kg, 01/06/20 13:04:00 EST, Dry Weight Start Date: 05/06/20 Stop Date: 05/01/21 Status: Ordered ketoconazole 2% topical cream 1 application, Topically, 2 times a day, # 60 Gm, 2 Refills, Maintenance, 02/20/21 14:06:00 EDT, Cream, [facility], Partial fill upon patient request if the prescription is for a schedule II opioid drug., 1 application Topically 2 times a d... Start Date: 02/20/21 Status: Ordered Lotrisone 0.05%-1% cream 1 application, Topically, 2 times a day, # 45 Gm, 0 Refills, Maintenance, 01/29/20 11:18:00 EDT, Cream, [facility], 1 application Topically 2 [...] tablet, 3 Refills, Maintenance, 05/06/20 14:05:00EDT, Tablet, [facility], 175, cm, 05/06/20 13:45:00 EDT, Height, 113, kg, 01/06/20 13:04:00 EST, Dry Weight Start Date: 05/06/20 Stop Date: 05/01/21 Status: Ordered nabumetone 500 mg oral tablet 1 tablet = 500 mg, By Mouth, 2 times a day, with food, # 14 tablet, 0 Refills, Maintenance, 03/20/21 7:16:00 EDT, Tablet, [facility], Partial fill upon patient request if the prescription is for a schedule II opioid drug., 176, cm, 03/20/21... Start Date: 03/20/21 Stop Date: 03/27/21 Status: Ordered omeprazole 20 mg oral enteric coated capsule 1 capsule, By Mouth, Daily, # 90 capsule, 0 Refills, Maintenance, 12/27/20 11:35:00 EST, [facility], 176, cm, 12/22/20 10:41:00 [...] 02/12/21 8:21:00 EDT, Route to Pharmacy Electronically, [facility], 176, cm, 12/22/20 10:41:00 [...] with no history of insulin use(Confirmed) Active 45291; repeat 2022 2Colonoscopy 2013 polyp, repeat 2017 3EGD 2014 positive for gastroparesis. 4egd 2003 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 5upper endo 2014 6admitted [facility] 2009 7s/p left tkr 2011 Social History Social History Type Response Smoking Status Former smoker; Other : quit 1989; entered on: 02/26/18 Sex
--- OUTSIDE RECORDS SUMMARY | 2024-10-12 12:31 | XMS_ITS | Continuity of Care Document ---
Author Organization [facility] Address [address] [place] [address]- Care Team Providers Care Senior Principal Software Engineer Name Role Phone Adeel Fountain MD Primary Care Physician Encounter [facility] Date(s): 11/19/22 - 12/19/[address] [address] Attending Physician: Vibha Wallace Admitting Physician: AdmtrVibha [...] and Recorded Vaccine Date Status Refusal Reason [id number] 12y+ bivalent booster vax 12/13/22 Given pneumococcal [...] ADRY 4Admin Note: Biomedical [facility] 5Admin Note: BIOMEDICAL JON 6Admin [...] 12/21/21 11:37:00 EST, Route to Pharmacy Electronically, [id number], [facility] ([place]), 176, cm, 10/26/21 9:28:00 EST, H... Start Date: 12/21/21 Status: Ordered CoQ10 = 300 mg, By Mouth, Daily, 0 Refills, Maintenance, 07/04/18 10:56:18 EDT Start Date: 07/04/18 Status: Ordered Crestor 5 mg oral tablet 1 tablet = 5 mg, By Mouth, Daily, # 90 tablet, 3 Refills, Maintenance, 12/21/21 11:37:00 EST, Tablet, [facility] ([place]), Partial fill upon patient request if the prescription is for aschedule II opioid drug., 176, cm, 10/26/21 9:28:00... Start Date: 12/21/21 Status: Ordered diltiazem 300 mg/24 hours oral capsule, extended release 300 mg, 1, capsule, By Mouth, Daily, # 90 capsule, Refills 3, Tot. Refills 3, Maintenance, 04/28/2210:41:00 EDT, Route to Pharmacy Electronically, [facility], 175, cm, 02/11/22 2:26:00 [...] 0, 0, 09/17/06 2:07:12, Print RENETTA Number, [id number], Constant Indicator Start Date: 09/17/06 Status: Ordered Farxiga 5 mg oral tablet 1 tablet = 5 mg, By Mouth, Daily, # 90 tablet, 3 Refills, Maintenance, 12/13/22 14:14:00 EST, Tablet, [facility], Partial fill upon patient [...] 11:36:00 EST, Powder, [facility]), 1 puffs Inhalation 2 times a [...] capsule, 1 Refills, Maintenance, 12/21/21 11:37:00 EST, [facility]), 176, cm, 10/26/21 9:28:00 EST, Height, 110.6, kg, 10/27/20 13:48:00 EST, Dry Weight Start Date: 12/21/21 Status: Ordered Metamucil Powder By Mouth, Daily at bedtime, 0 Refills, Maintenance, 05/08/13 11:48:10 EDT Start Date: 05/08/13 Status: Ordered montelukast 10 mg oral tablet 1, tablet, By Mouth, Daily, # 90 tablet, Refills 3, Tot. Refills 3, 12/21/21 11:37:00 EST, Route toPharmacy Electronically, [facility]), 176, cm, 10/26/21 9:28:00 EST, Height, [...] mL, 3 Refills, Maintenance, 12/15/22 7:55:00 EST, [facility], Partial fill upon patient [...] gastroparesis. 5egd 2003 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 6upper endo 2015 7admitted [facility] 2009 8s/p left tkr 2011 Social [...] Care Nurse Name: Adeel Dominguez RN Position: [facility] RN Member Role: Primary Care Nurse Name: Tierra Meeks NP Position: [facility] PCO Associate Professional Member Role: Primary Care Nurse Name: Adeel Fountain MD Position: [facility] Primary Care Physician Member Role: PCP Address: Address: [address] [place] [id number]- Name: Mindy Santiago RN Position: [facility] RN Member Role: Primary Care Nurse Name: Ramón Olivo MD Position: [facility] Infectious Disease MD Member Role: Lifetime Consulting Physician Address: Address: [address] [place] [address] [place] [address]- Care Team Related Persons Name: RICHARD REDDY Address: home [address] [place] [id number]
--- OUTSIDE RECORDS SUMMARY | 2024-10-12 12:32 | XMS_ITS | Continuity of Care Document ---
Author Organization [facility] Eric Thapa Zackery lt Address [address] [place] [address]- Care Team Providers Care Strategic Planner Name Role Phone Adeel Fountain MD Primary Care Physician Encounter [facility] Date(s): 06/06/20 - 06/13/20 [facility] Eric Farooqley Adult [address] [place] [address]- [facility] Attending Physician: Amparo Weir NP Referring Physician: [...] Note: ADRY 4Admin Note: Biomedical [facility] 5Admin Note: BIOMEDICAL JON 6Admin Note: GIVEN [...] 02/26/18 9:54:20 EDT, Route to Pharmacy Electronically, [id number], [facility] Start [...] 0, 0, 09/17/06 2:07:12, Print RENETTA Number, [phone], Constant Indicator Start Date: 09/17/06 Status: Ordered [...] 3 Refills, Maintenance, 05/06/20 14:07:00 EDT, Powder, [facility], 1 puffs Inhalation 2 times a day,x90 days, 175, cm, 05/06/20 13:45:00 EDT, Height, 113, kg, 01/06/20 13:04:00 EST, Dry Weight Start Date: 05/06/20 Stop Date: 05/01/21 Status: Ordered Lotrisone 0.05%-1% cream 1 application, Topically, 2 times a day, # 45 Gm, 0 Refills, Maintenance, 01/29/20 11:18:00 EDT, Cream, [facility], 1 application Topically 2 times [...] tablet, 3 Refills, Maintenance, 05/06/20 14:05:00EDT, Tablet, [facility], 175, cm, 05/06/20 13:45:00 EDT, Height, 113, kg, 01/06/20 13:04:00 EST, Dry Weight Start Date: 05/06/20 Stop Date: 05/01/21 Status: Ordered omeprazole 20 mg oral enteric coated capsule 1 capsule, By Mouth, Daily, # 90 capsule, 0 Refills, Maintenance, 03/25/20 14:11:00 EDT, [facility], 175, cm, 01/30/20 9:09:00 [...] 01/29/20 11:19:00 EDT, Route to Pharmacy Electronically, [facility], 172, cm, 01/29/20 11:00:00 [...] with no history of insulin use(Confirmed) Active 93722; repeat 2022 2Colonoscopy 2013 polyp, repeat 2018 3EGD 2014 positive for gastroparesis. 4egd 2003 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 5upper endo 2014 6admitted [facility] 2009 7s/p left tkr 2011 Vital Signs Most recent to oldest [Reference Range]: 1 Height 175 cm (06/06/20 7:48 AM) Weight 111.5 kg (06/06/20 7:48 AM) Oxygen Saturation [94-100 %] 96 % (06/06/20 7:48 AM) Pulse Rate [55-90 bpm] 71 bpm (06/06/20 7:48 AM) Body Mass Index [18.5-24.99] 36.41 *>HHI* (06/06/20 7:48 AM) Blood Pressure [90-138/55-84 mm Hg] 140/ 84mm Hg *H* (06/06/20 7:48 AM) Temperature [96.8-100.4 DegF] 97.1 DegF (06/06/20 7:48 AM) Blood pressure sites Arm, right (06/06/20 7:48 AM) Temperature Route Oral (06/06/20 7:48 AM) Social History Social History Type Response Smoking Status Former smoker; Other : quit 1989; entered on: 02/26/18 Sex
--- OUTSIDE RECORDS SUMMARY | 2024-10-12 12:32 | XMS_ITS | Continuity of Care Document ---
Author Organization [facility] Address [address] [place] [address]- Care Team Providers Care Travel Specialist Name Role Phone Adeel Fountain MD Primary Care Physician [phone] Encounter [facility] Date(s): 06/26/20 - 06/27/[address] [address]- [facility] Encounter Diagnosis Acute kidney injury(Final) - 06/26/20 Discharge Disposition: A-D/C Home Attending Physician: Ankita Royal MD Admitting Physician: Jose CHRISTINA, Priya Waterman Referring Physician: Not on Staff, Referring MD [...] 02/26/18 9:54:20 EDT, Route to Pharmacy Electronically, [id number], [facility] Start Date: 02/26/18 Status: [...] 0, 0, 09/17/06 2:07:12, Print RENETTA Number, [id number], Constant Indicator Start Date: 09/17/06 Status: Ordered [...] 3 Refills, Maintenance, 05/06/20 14:07:00 EDT, Powder, [facility], 1 puffs Inhalation 2 times a day,x90 days, 175, cm, 05/06/20 13:45:00 EDT, Height, 113, kg, 01/06/20 13:04:00 EST, Dry Weight Start Date: 05/06/20 Stop Date: 05/01/21 Status: Ordered Lotrisone 0.05%-1% cream 1 application, Topically, 2 times a day, # 45 Gm, 0 Refills, Maintenance, 01/29/20 11:18:00 EDT, Cream, [facility], 1 application Topically 2 times [...] 3 Refills, Maintenance, 05/06/20 14:05:00EDT, Tablet, [facility], 175, cm, 05/06/20 13:45:00 EDT, Height, 113, kg, 01/06/20 13:04:00 EST, Dry Weight Start Date: 05/06/20 Stop Date: 05/01/21 Status: Ordered omeprazole 20 mg oral enteric coated capsule 1 capsule, By Mouth, Daily, # 90 capsule, 0 Refills, Maintenance, 03/25/20 14:11:00 EDT, [facility], 175, cm, 01/30/20 9:09:00 [...] 11:19:00 EDT, Route to Pharmacy Electronically, [facility], 172, cm, 01/29/20 11:00:00 [...] with no history of insulin use(Confirmed) Active 09770; repeat 2022 2Colonoscopy 2013 polyp, repeat 2017 3EGD 2014 positive for gastroparesis. 4egd 2003 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 5upper endo 2014 6admitted [facility] 2009 7s/p left tkr 2012 Vital Signs Most recent to oldest [Reference Range]: 1 2 3 Height 176 cm (06/27/20 11:42 AM) 176 cm (06/27/20 7:55 AM) 176 cm (06/27/20 7:51 AM) Weight 109.1 kg (06/26/20 8:48 PM) 115 kg (06/26/20 6:12 PM) 115 kg (06/26/20 3:54 PM) Oxygen Saturation [94-100 %] 98 % (06/27/20 11:42 AM) 98 % (06/27/20 7:51 AM) 97 % (06/27/20 3:32 AM) Pulse Rate [55-90 bpm] 70 bpm (06/27/20 11:42 AM) 60 bpm (06/27/20 9:31 AM) 60 bpm (06/27/20 7:51 AM) Body Mass Index [18.5-24.99] 35.22 *>HHI* (06/26/20 8:48 PM) 37.13 *>HHI* (06/26/20 6:12 PM) 37.13 *>HHI* (06/26/20 3:54 PM) Blood Pressure [90-138/55-84 mm Hg] 131/64mm Hg (06/27/20 11:42 AM) 122/66mm Hg (06/27/20 9:31 AM) 122/66mm Hg (06/27/20 9:31 AM) Respiratory Rate [16-30 br/min] 18 br/min (06/27/20 11:42 AM) 18 br/min (06/27/20 7:51 AM) 18 br/min (06/27/20 3:32 AM) Temperature [96.8-100.4 DegF] 98.2 DegF (06/27/20 11:42 AM) 98.2 DegF (06/27/20 7:51 AM) 97.6 DegF (06/27/20 3:32 AM) Mode of Delivery (Oxygen) Room air (06/27/20 11:42 AM) Room air (06/27/20 7:51 AM) Room air (06/27/20 3:32 AM) Blood pressure sites Arm, right (06/27/20 11:42 AM) Arm, left (06/27/20 7:51 AM) Arm, right (06/27/20 3:32 AM) Temperature Route Oral (06/27/20 11:42 AM) Oral (06/27/20 7:51 AM) Oral (06/27/20 3:32 AM) Dry Weight 109.1 kg (06/26/20 8:48 PM) 115 kg (06/26/20 6:12 PM) 115 kg (06/26/20 3:54 PM) Weight Obtained Via Patient/family state d (06/26/20 3:33 PM) Dry Weight Obtained Via Patient/family s tated (06/26/20 3:33 PM) Social History Social History Type Response Smoking Status Former smoker; Other : quit 1989; entered on: 02/26/18 Sex
--- OUTSIDE RECORDS SUMMARY | 2024-10-12 12:32 | XMS_ITS | Continuity of Care Document ---
Author Organization [facility] Address [address] [place] [address], [address] [place] [address]- Care Team Providers Care Shellfish Grower Name Role Phone Essie CHRISTINA, Adeel Nguyen Primary Care Physician Encounter [facility] Date(s): 05/13/20 - 05/20/20 [facility] [address] [place] [address] Drive, [address] [place] [address]- [facility] Attending Physician: Portillo Chiu MD Referring Physician: Linda LUCAS, Delano Rogers Allergies, Adverse Reactions, Alerts Substance Reaction Severity [...] tetanus-diphtheria toxoids (Td) 11/21/00 Given 1Location History: PHYLICIAAMBROSIOSUMAN 2Result Comment: [08/27/2015] HIGH DOSE 3Admin Note: ADRY 4Admin Note: [facility]ical Echo [facility] 5Admin Note: BIOMEDICAL ECHO 6Admin Note: GIVEN BY NATALIE 7Admin Note: [...] 02/26/18 9:54:20 EDT, Route to Pharmacy Electronically, [id number], [facility] Start Date: 02/26/18 Status: [...] 0, 0, 09/17/06 2:07:12, Print RENETTA Number, [id number], Constant Indicator Start Date: 09/17/06 Status: Ordered [...] 3 Refills, Maintenance, 05/06/20 14:07:00 EDT, Powder, [facility], 1 puffs Inhalation 2 times a day,x90 days, 175, cm, 05/06/20 13:45:00 EDT, Height, 113, kg, 01/06/20 13:04:00 EST, Dry Weight Start Date: 05/06/20 Stop Date: 05/01/21 Status: Ordered Lotrisone 0.05%-1% cream 1 application, Topically, 2 times a day, # 45 Gm, 0 Refills, Maintenance, 01/29/20 11:18:00 EDT, Cream, [facility], 1 application Topically 2 times a day, 172, cm, 01/29/20 11:00:00 EDT, Height, 113, kg, 01/06/20 13:04:00 EST, Dry Weight Start Date: 01/29/20 Status: Ordered melatonin 10 mg oral capsule 1 capsule = 10 mg, By Mouth, Daily at bedtime, # 60 capsule, 1 Refills, Maintenance, 09/27/16 17:55:03 Start Date: 08/17/16 Status: Ordered Metamucil Powder By Mouth, Daily at bedtime, 0 Refills, Maintenance, 05/08/13 11:48:10 EDT Start Date: 05/08/13 Status: Ordered metFORMIN 500 mg oral tablet 1 tablet = 500 mg, By Mouth, 2 times a day, # 180 tablet, 3 Refills, Maintenance, 05/06/20 14:05:00EDT, Tablet, [facility], 175, cm, 05/06/20 13:45:00 EDT, Height, 113, kg, 01/06/20 13:04:00 EST, Dry Weight Start Date: 05/06/20 Stop Date: 05/01/21 Status: Ordered omeprazole 20 mg oral enteric coated capsule 1 capsule, By Mouth, Daily, # 90 capsule, 0 Refills, Maintenance, 03/25/20 14:11:00 EDT, [facility], 175, cm, 01/30/20 9:09:00 [...] 01/29/20 11:19:00 EDT, Route to Pharmacy Electronically, [facility], 172, cm, 01/29/20 11:00:00 [...] with no history of insulin use(Confirmed) Active 47128; repeat 2022 2Colonoscopy 2013 polyp, repeat 2017 3EGD 2014 positive for gastroparesis. 4egd 2003 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 5upper endo 2014 6admitted [facility] 2009 7s/p left tkr 2011 Vital Signs Most recent to oldest [Reference Range]: 1 2 Height 175 cm (05/12/20 3:03 PM) 175 cm (04/30/20 8:53 AM) Weight 115.5 kg (05/12/20 3:03 PM) 115.8 kg (04/30/20 8:53 AM) Body Mass Index [18.5-24.99] 37.71 *>HHI* (05/12/20 3:03 PM) 37.81 *>HHI* (04/30/20 8:53 AM) Social History Social History Type Response Smoking Status Former smoker; Other : quit 1989; entered on: 02/26/18 Sex
--- OUTSIDE RECORDS SUMMARY | 2024-10-12 12:32 | XMS_ITS | Continuity of Care Document ---
Author Organization [facility] Zackery lt Address [address] [place] [address]- Care Team Providers Care Adhesive Bandage Making Operator Name Role Phone Adeel Fountain MD Primary Care Physician Encounter [facility] Date(s): 06/03/21 - 07/03/21 [facility] Adult [address] [place] [address]- Allergies, Adverse Reactions, Alerts Substance Reaction Severity [...] Note: ADRY 4Admin Note: Biomedical Jon of [facility] 5Admin Note: BIOMEDICAL JON 6Admin Note: GIVEN [...] 02/20/21 14:02:00 EDT, Route to Pharmacy Electronically, [id number], [facility], 176, cm, 02/20/21 13:51:00 EDT, Height, 110.... Start Date: 02/20/21 Status: Ordered Cipro 500 mg oral tablet 1 tablet = 500 mg, By Mouth, Every 12 hours, for 14 days, # 28 tablet, 0 Refills, Acute 07/15/21 17:02:00 EDT, 07/01/21 17:02:00 EDT, Tablet, [facility], Partial fill upon patient request if the prescription is for a schedule II opioid drug... Start Date: 07/01/21 Stop Date: 07/15/21 Status: Ordered CoQ10 = 300 mg, By [...] 0, 0, 09/17/06 2:07:12, Print RENETTA Number, [phone], Constant Indicator Start Date: 09/17/06 Status: Ordered [...] 3 Refills, Maintenance, 05/06/20 14:07:00 EDT, Powder, [facility], 1 puffs Inhalation [...] tablet, 3 Refills, Maintenance, 05/06/20 14:05:00EDT, Tablet, [facility], 175, cm, 05/06/20 [...] capsule, 0 Refills, Maintenance, 04/01/21 16:20:00 EDT, [facility], 176, cm, 03/20/21 [...] 02/12/21 8:21:00 EDT, Route to Pharmacy Electronically, [facility], 176, cm, 12/22/20 [...] with no history of insulin use(Confirmed) Active 65504; repeat 2022 2Colonoscopy 2013 polyp, repeat 2017 3EGD 2014 positive for gastroparesis. 4egd 2003 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 5upper endo 2014 6admitted [facility] 2009 7s/p left tkr 2012 Social History Social History Type Response Smoking Status Former smoker; Other : quit 1989; entered on: 02/26/18 Sex
--- OUTSIDE RECORDS SUMMARY | 2024-10-12 12:32 | XMS_ITS | Continuity of Care Document ---
Author Organization [facility] Elbe Zackery lt Address [address] [place] [address]- Care Team Providers Care Cloth Folder Machine Name Role Phone Adeel Fountain MD Primary Care Physician [facility]14[facility]24 - 02/13/24 [facility] Adult [address] [place] [address]- Allergies, Adverse Reactions, Alerts Substance Reaction Severity [...] RSV vaccine preF3, recombinant 10/05/23 Recorded SARS-CoV-2(COVID-19)mRNA-LNP vac([id number]) 09/22/23 Recorded influenza virus vaccine, inactivated 09/15/23 [...] influenza virus vaccine, inactivated 08/04/13 Goyo rded [id number] 12y+ bivalent booster vax 12/13/22 Given pneumococcal [...] Note: ADRY 4Admin Note: Biomedical Jon of [facility] 5Admin Note: BIOMEDICAL JON 6Admin Note: [...] 12/21/21 11:37:00 EST, Route to Pharmacy Electronically, [id number], [facility]), 176, cm, 10/26/21 9:28:00 EST, H... Start Date: 12/21/21 Status: Ordered cetirizine 10 mg oral tablet 1 tablet = 10 mg, By Mouth, Daily, # 90 tablet, 3 Refills, Maintenance, 04/20/23 13:44:00 EDT, Tablet, [facility] # [facility], Partial fill upon patient request if the prescription is for a schedule II opioid drug., 175, cm, 04/12/23 15:36:00 EDT, Height... Start Date: 04/20/23 Status: Ordered Crestor 5 mg oral tablet 1 tablet = 5 mg, By Mouth, Daily, # 90 tablet, 2 Refills, Maintenance, 06/01/23 9:50:00 EDT, Tablet, [facility] # [facility], Partial fill upon patient request if the prescription is for a schedule II opioid drug., 175, cm, 05/09/23 12:38:00 EDT, Height,... Start Date: 06/01/23 Status: Ordered diltiazem 300 mg/24 hours oral capsule, extended release 300 mg, 1, capsule, By Mouth, Daily, # 90 capsule, Refills 3, Tot. Refills 3, Maintenance, 07/26/2311:47:00 EDT, Route to Pharmacy Electronically, [facility], 175, cm, 06/16/23 9:25:00 [...] 0, 0, 09/17/06 2:07:12, Print RENETTA Number, [id number], Constant Indicator Start Date: 09/17/06 Status: Ordered [...] Gm, 1 Refills, Maintenance, 02/16/23 10:19:00 EDT, [place], [facility], Partial fill upon patient [...] 12/21/21 11:37:00 EST, [facility] ([place]), 176, cm, 10/26/21 9:28:00 EST, Height, 110.6, kg, 10/27/20 13:48:00 EST, Dry Weight Start Date: 12/21/21 Status: Ordered Metamucil Powder By Mouth, Daily at bedtime, 0 Refills, Maintenance, 05/08/13 11:48:10 EDT Start Date: 05/08/13 Status: Ordered montelukast 10 mg oral tablet 1, tablet, By Mouth, Daily, # 90 tablet, Refills 1, Maintenance, 01/14/24 12:04:00 EST, Route to Pharmacy Electronically, [facility] # [facility], 175, cm, 12/16/23 13:50:00 EST, Height, 109.6, kg, 05/09/23 12:38:00 EDT, Dry Weight Start Date: 01/14/24 Status: Ordered omeprazole 20 mg oral enteric coated capsule 1 capsule, By Mouth, Daily, # 90 capsule, 2 Refills, Maintenance, 05/23/23 11:48:00 EDT, [facility] # 50, 175, cm, 05/09/23 12:38:00 EDT, Height, 109.6, kg, 05/09/23 12:38:00 EDT, Dry Weight Start Date: 05/23/23 Status: Ordered Ozempic 2 mg/3 mL (0.25 mg or 0.5 mg dose) subcutaneous solution See Instructions, INJECT 0.5MG UNDER THE SKIN ONCE WEEKLY, # 3 mL, 12 Refills, Maintenance, 01/16/24 15:35:00 EST, [facility], 175, cm, 12/16/23 13:50:00 [...] 3 Refills, Maintenance, 04/12/23 16:08:00 EDT, Powder, [facility] # [facility], Partial fill upon patient request if the prescription is for a schedule II opioid drug., 1... Start Date: 04/12/23 Status: Ordered Zestoretic 25 mg-20 mg oral tablet 1 tablet, By Mouth, Daily, # 90 tablet, 3 Refills, Maintenance, 12/21/21 11:36:00 EST, Tablet, [facility] ([place]), 1 tablet By Mouth Daily,x90 days, 176, [...] 2003 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 6upper endo 2014 7admitted [facility] 2009 8s/p left tkr 2011 Social History Social History Type Response Smoking Status Former smoker, quit more than 30 days ago; Other: quit in 1989; entered on: 05/09/23 Sex Patient Care team information Care Team Personnel Name: Sujey Pereira RN Position: [facility] RN Member Role: Primary Care Nurse Name: Nickie Calvo RN Position: [facility] RN Member Role: Primary Care Nurse Name: Adeel Dominguez RN Position: [facility] RN Member Role: Primary Care Nurse Name: Tierra Meeks NP Position: Reference Physician Member Role: Primary Care Nurse Address: Address: [address] [place] [address]- [place] Name: Margo Wilkins NP Position: [facility] Outreach Member Role: Primary Care Nurse Address: Address: [address] [place] [address]- [place] Name: Adeel Fountain MD Position: [facility] Physician - Primary Care Member Role: PCP Address: Address: [address] [place] [address]- [place] Name: Mindy Santiago RN Position: [facility] RN Member Role: Primary Care Nurse Name: Ramón Olivo MD Position: [facility] Physician - Infectious Disease Member Role: Lifetime Consulting Physician Address: Address: [address] [place] [address] [place] [address]- Care Team Related Persons Name: RICHARD REDDY Address: [address] [place], [place] [address]E [address]
--- OUTSIDE RECORDS SUMMARY | 2024-10-12 12:32 | XMS_ITS | Continuity of Care Document ---
Author Organization [facility] Neurosurger y Address [address] [place] [address] [address], [address] [place] [address]- Care Team Providers Care Geophysical Drafter Name Role Phone Essie CHRISTINA, Adeel Nguyen Primary Care Physician [facility] 05[facility]13/20 - 06/12/20 [facility] [address] [place] [address], [address] [place] [address]- [facility] Attending Physician: Vibha Wallace Admitting [...] Note: Biomedical Jon of [facility] 5Admin Note: BIOMEDICAL JON 6Admin Note: GIVEN [...] 02/26/18 9:54:20 EDT, Route to Pharmacy Electronically, [id number], [facility] 5278 Start Date: 02/26/18 Status: [...] 0, 0, 09/17/06 2:07:12, Print RENETTA Number, [id number], Constant Indicator Start Date: 09/17/06 Status: Ordered [...] 3 Refills, Maintenance, 05/06/20 14:07:00 EDT, Powder, [facility], 1 puffs Inhalation 2 times a day,x90 days, 175, cm, 05/06/20 13:45:00 EDT, Height, 113, kg, 01/06/20 13:04:00 EST, Dry Weight Start Date: 05/06/20 Stop Date: 05/01/21 Status: Ordered Lotrisone 0.05%-1% cream 1 application, Topically, 2 times a day, # 45 Gm, 0 Refills, Maintenance, 01/29/20 11:18:00 EDT, Cream, [facility], 1 application Topically 2 times [...] tablet, 3 Refills, Maintenance, 05/06/20 14:05:00EDT, Tablet, [facility], 175, cm, 05/06/20 13:45:00 EDT, Height, 113, kg, 01/06/20 13:04:00 EST, Dry Weight Start Date: 05/06/20 Stop Date: 05/01/21 Status: Ordered omeprazole 20 mg oral enteric coated capsule 1 capsule, By Mouth, Daily, # 90 capsule, 0 Refills, Maintenance, 03/25/20 14:11:00 EDT, [facility], 175, cm, 01/30/20 9:09:00 [...] 01/29/20 11:19:00 EDT, Route to Pharmacy Electronically, [facility], 172, cm, 01/29/20 11:00:00 [...] with no history of insulin use(Confirmed) Active 48288; repeat 2022 2Colonoscopy 2013 polyp, repeat 2018 3EGD 2014 positive for gastroparesis. 4egd 2003 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 5upper endo 2014 6admitted [facility] 2009 7s/p left tkr 2011 Social History Social History Type Response Smoking Status Former smoker; Other : quit 1989; entered on: 02/26/18 Sex
--- OUTSIDE RECORDS SUMMARY | 2024-10-12 12:32 | XMS_ITS | Continuity of Care Document ---
Author Organization [facility] Zackery lt Address [address] [place] [address]- Care Team Providers Care Hog Feeder Name Role Phone Adeel Fountain MD Primary Care Physician [phone] [facility]): 10/24/23 - 11/23/23 [facility] Adult [address] [place] [address]- Allergies, Adverse Reactions, Alerts Substance Reaction Severity Status morphine 1 don't want it Active Percocet 5/325 2 makes me feel like pulling skin off Active 1pt feels like taking his skin off when given morphine 2pt feels like taking his skin off when on percocet Immunizations Given and Recorded Vaccine Date Status Refusal Reason SARS-CoV-2(COVID-19)mRNA-LNP vac([id number]) 09/22/23 Recorded influenza virus vaccine, inactivated 09/15/23 [...] influenza virus vaccine, inactivated 08/04/13 Goyo rded [id number] 12y+ bivalent booster vax 12/13/22 Given pneumococcal [...] HIGH DOSE 3Admin Note: ADRY 4Admin Note: Noxilizer Jon of [facility] 5Admin Note: [employer] JON 6Admin Note: GIVEN BY NATALIE 7Admin [...] 12/21/21 11:37:00 EST, Route to Pharmacy Electronically, [id number], [facility], 176, cm, 10/26/21 9:28:00 EST, H... Start [...] 2 Refills, Maintenance, 06/01/23 9:50:00 EDT, Tablet, [facility] # [facility], Partial fill upon patient request if the prescription is for a schedule II opioid drug., 175, cm, 05/09/23 12:38:00 EDT, Height,... Start Date: 06/01/23 Status: Ordered diltiazem 300 mg/24 hours oral capsule, extended release 300 mg, 1, capsule, By Mouth, Daily, # 90 capsule, Refills 3, Tot. Refills 3, Maintenance, 07/26/2311:47:00 EDT, Route to Pharmacy Electronically, [facility] # [facility], 175, cm, 06/16/23 9:25:00 [...] 0, 0, 09/17/06 2:07:12, Print RENETTA Number, [id number], Constant Indicator Start Date: 09/17/06 Status: Ordered [...] Gm, 1 Refills, Maintenance, 02/16/23 10:19:00 EDT, [place], [facility] 527, Partial fill upon patient request [...] 12/21/21 11:37:00 EST, [facility]), 176, [...] Maintenance, 09/28/23 9:52:00 EST, Tablet, [facility] [...] 2003 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 6upper endo 2014 7admitted [facility] 2009 8s/p left tkr 2011 [...] Member Role: Primary Care Nurse Address: Address: [address] [place] [address]- [place] Name: Margo Wilkins NP Position: [facility] Outreach Member Role: Primary Care Nurse Address: Address: [address] [place] [address]- [place] Name: Adeel Fountain MD Position: [facility] Physician - Primary Care Member Role: PCP Address: Address: [address] [place] [address]- [place] Name: Mindy Santiago RN Position: [facility] RN Member Role: Primary Care Nurse Name: Ramón Olivo MD Position: [facility] Physician - Infectious Disease Member Role: Lifetime Consulting Physician Address: Address: [address] [place] [address] [place] [address]- [place] Care Team Related Persons Name: RICHARD REDDY Address: home [address] [place] [address]
--- OUTSIDE RECORDS SUMMARY | 2024-10-12 12:32 | XMS_ITS | Continuity of Care Document ---
Author Organization [facility] Elier Zackery lt Address [address] [place] [address]- Care Team Providers Care Shirt Line Operator Name Role Phone Essie CHRISTINA, Adeel Nguyen Primary Care Physician [facility]s): 08/31/22 - 09/30/22 [facility] Adult [address] [place] [address]- Allergies, Adverse Reactions, Alerts Substance Reaction Severity [...] Note: ADRY 4Admin Note: Biomedical Jon of [facility] 5Admin Note: BIOMEDICAL JON 6Admin Note: GIVEN [...] 12/21/21 11:37:00 EST, Route to Pharmacy Electronically, [id number], [facility]), 176, cm, 10/26/21 9:28:00 EST, H... Start Date: 12/21/21 Status: Ordered azithromycin 250 mg oral tablet See Instructions, Take 2 tablets on day 1 and 1 tablet daily for next 4 days, # 6 tablet, 0 Refills, Maintenance, 08/31/22 13:38:00 EDT, Tablet, [facility] 5272, Partial fill upon patient request if the [...] 3 Refills, Maintenance, 12/21/21 11:37:00 EST, Tablet, [facility] Partial fill upon patient request if the prescription is for aschedule II opioid drug., 176, cm, 10/26/21 9:28:00... Start Date: 12/21/21 Status: Ordered diltiazem 300 mg/24 hours oral capsule, extended release 300 mg, 1, capsule, By Mouth, Daily, # 90 capsule, Refills 3, Tot. Refills 3, Maintenance, 04/28/2210:41:00 EDT, Route to Pharmacy Electronically, [facility], 175, cm, 02/11/22 2:26:00 [...] 0, 0, 09/17/06 2:07:12, Print RENETTA Number, [id number], Constant Indicator Start Date: 09/17/06 Status: Ordered [...] 11:36:00 EST, Powder, [facility] ([place]), 1 puffs Inhalation 2 times a day,x90 [...] capsule, 1 Refills, Maintenance, 12/21/21 11:37:00 EST, [facility]), 176, cm, 10/26/21 9:28:00 EST, [...] 1 Refills, Maintenance, 06/13/22 8:47:00 EDT, Tablet, [facility] 176, cm, 10/26/21 9:28:00 EST, Height, 110.6, kg, 10/27/20 13:48:00 EST, Dry Weight Start Date: 06/13/22 Stop Date: 12/10/22 Status: Ordered montelukast 10 mg oral tablet 1, tablet, By Mouth, Daily, # 90 tablet, Refills 3, Tot. Refills 3, 12/21/21 11:37:00 EST, Route toPharmacy Electronically, [facility] ([place]), 176, cm, 10/26/21 9:28:00 EST, Height, 110.6, [...] 11:36:00 EST, Tablet, [facility] ([place]), 1 tablet By Mouth Daily,x90 days, 176, [...] 2003 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 6upper endo 2015 7admitted [facility] 2009 8s/p left tkr 2011 Social History Social History Type Response Smoking Status Former smoker; Other : quit 1989; entered on: 02/26/18 Sex Patient Care team information Care Team Personnel Name: Sujey Pereira RN Position: [facility] RN Member Role: Primary Care Nurse Name: Nickie Calvo RN Position: [facility] SN RN Member Role: Primary Care Nurse Name: Adeel Dominguez RN Position: [facility] RN Member Role: Primary Care Nurse Name: Tierra Meeks NP Position: [facility] PCO Associate Professional Member Role: Primary Care Nurse Name: Margo Wilkins NP Position: [facility] Associate Professional Member Role: Primary Care Nurse Address: Address: [address] [place] [address] [place] [address]- Name: Adeel Fountain MD Position: [facility] Primary Care Physician Member Role: PCP Address: Address: [address] [place] [address]- Name: Mindy Santiago RN Position: [facility] RN Member Role: Primary Care Nurse Name: Ramón Olivo MD Position: [facility] Infectious Disease MD Member Role: Lifetime Consulting Physician Address: Address: [address] [place] [address] [place] [address]- Care Team Related Persons Name: RICHARD REDDY Address: [address] [address]
--- OUTSIDE RECORDS SUMMARY | 2024-10-12 12:32 | XMS_ITS | Continuity of Care Document ---
Author Organization [facility] Zackery lt Address [address] [place] [address]- Care Team Providers Care Ase Master Mechanic Name Role Phone Adeel Fountain MD Primary Care Physician [phone] Encounter [facility] Date(s): 05/29/21 - 06/05/21 [facility] Adult [address] [place] [address]- Encounter Diagnosis Sore throat(Discharge Diagnosis) - 05/29/21 Attending Physician: Not on Staff, Attending MD Referring Physician: Adeel Fountain MD Allergies, Adverse [...] Note: ADRY 4Admin Note: Biomedical Jon of [facility] 5Admin Note: BIOMEDICAL JON 6Admin [...] 02/20/21 14:02:00 EDT, Route to Pharmacy Electronically, [id number], [facility], 176, cm, 02/20/21 [...] 0, 0, 09/17/06 2:07:12, Print RENETTA Number, [id number], Constant Indicator Start Date: 09/17/06 Status: Ordered [...] 3 Refills, Maintenance, 05/06/20 14:07:00 EDT, Powder, [facility] 5278, 1 puffs Inhalation 2 times a day,x90 days, 175, cm, 05/06/20 13:45:00 EDT, Height, 113, kg, 01/06/20 13:04:00 EST, Dry Weight Start Date: 05/06/20 Stop Date: 05/01/21 Status: Ordered levoFLOXacin 500 mg oral tablet 1 tablet = 500 mg, By Mouth, Every 24 hours, for 14 days, # 14 tablet, 0 Refills, Acute 06/12/21 7:14:00 EDT, 05/29/21 7:14:00 EDT, Tablet, [facility]278, Partial fill upon patient request ifthe prescription is for a schedule II opioid drug.,... Start Date: 05/29/21 Stop Date: 06/12/21 Status: Ordered melatonin 10 mg oral capsule [...] tablet, 3 Refills, Maintenance, 05/06/20 14:05:00EDT, Tablet, [facility], 175, cm, 05/06/20 [...] capsule, 0 Refills, Maintenance, 04/01/21 16:20:00 EDT, [facility], 176, cm, 03/20/21 [...] 02/12/21 8:21:00 EDT, Route to Pharmacy Electronically, [facility], 176, cm, 12/22/20 [...] with no history of insulin use(Confirmed) Active 35221; repeat 2022 2Colonoscopy 2012 polyp, repeat 2017 3EGD 2014 positive for gastroparesis. 4egd 2003 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 5upper endo 2014 6admitted [facility] 2009 7s/p left tkr 2011 Diagnosis Diagnosis Type Effective Dates Health Status Clini ciro Service Informant Sore throat Discharge Diagnosis 05/29/21 Vital Signs Most recent to oldest [Reference Range]: 1 Height 176 cm (05/29/21 6:46 AM) Social History Social History Type Response Smoking Status Former smoker; Other : quit 1989; entered on: 02/26/18 Sex
--- OUTSIDE RECORDS SUMMARY | 2024-10-12 12:32 | XMS_ITS | Continuity of Care Document ---
Author Organization [facility] Elier Zackery lt Address [address] [place] [address]- Care Team Providers Care Intermediate Designer Name Role Phone Adeel Fountain MD Primary Care Physician [facility]s): 02[facility]25/20 - 03/06/20 [facility] Adult [address] [place] [address]- [facility] Attending Physician: Admtr, Ar8 Allergies, Adverse Reactions, [...] tetanus-diphtheria toxoids (Td) 11/21/00 Given 1Location History: [place] 2Result Comment: [08/27/2015] HIGH DOSE 3Admin Note: ADRY 4Admin Note: Biomedical Jon of [facility] 5Admin Note: BIOMEDICAL [...] 02/26/18 9:54:20 EDT, Route to Pharmacy Electronically, [id number], [facility]278 Start Date: 02/26/18 Status: [...] 0, 0, 09/17/06 2:07:12, Print RENETTA Number, [id number], Constant Indicator Start Date: 09/17/06 Status: Ordered [...] 0 Refills, Maintenance, 01/29/20 11:18:00 EDT, Cream, [facility], 1 application Topically 2 [...] Daily, # 90 capsule, 0 Refills, Maintenance, 03/06/20 11:25:00 EDT, [facility], 175, cm, 01/30/20 9:09:00 EDT, Height, 113, kg, 01/06/20 13:04:00 EST, Dry Weight Start Date: 03/06/20 Status: Ordered Patient's Own Meds Maintenance, artichoke extract 1 tab daily, 07/04/18 11:15:51 EDT Start Date: 07/04/18 Status: Ordered Singulair 10 mg oral tablet 10 mg, 1, tablet, By Mouth, Daily, # 90 tablet, Refills 3, Tot. Refills 3, Maintenance, 01/29/20 11:19:00 EDT, Route to Pharmacy Electronically, [facility], 172, cm, 01/29/20 11:00:00 [...] Acute subdural hematoma(Confirmed) Active Thoracic spondylosis(Confirmed) Active 47528; repeat 2022 2Colonoscopy 2013 polyp, repeat 2018 3EGD 2014 positive for gastroparesis. 4egd 2003 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 5upper endo 2014 6admitted [facility] 2009 7s/p left tkr 2011 Social History Social History Type Response Smoking Status Former smoker; Other : quit 1989; entered on: 02/26/18 Sex
--- OUTSIDE RECORDS SUMMARY | 2024-10-12 12:32 | XMS_ITS | Continuity of Care Document ---
Author Organization [facility] Zackery lt Address [address] [place] [address]- Care Team Providers Care Director Of Clinical Education Name Role Phone Adeel Fountain MD Primary Care Physician Encounter [facility] Date(s): 02/16/22 - 03/20/22 [facility] Adult [address] [place] [address]- Attending Physician: Not on Staff, Attending MD Allergies, Adverse Reactions, Alerts Substance Reaction [...] 3Admin Note: ADRY 4Admin Note: Biomedical Jon [facility] 5Admin Note: BIOMEDICAL JON 6Admin Note: [...] 12/21/21 11:37:00 EST, Route to Pharmacy Electronically, [id number], [facility] ([place]), 176, cm, 10/26/21 9:28:00 EST, H... Start Date: 12/21/21 Status: Ordered CoQ10 = 300 mg, By Mouth, Daily, 0 Refills, Maintenance, 07/04/18 10:56:18 EDT Start Date: 07/04/18 Status: Ordered Crestor 5 mg oral tablet 1 tablet = 5 mg, By Mouth, Daily, # 90 tablet, 3 Refills, Maintenance, 12/21/21 11:37:00 EST, Tablet, [facility] Partial fill upon patient request if the prescription is for aschedule II opioid drug., 176, cm, 10/26/21 9:28:00... Start Date: 12/21/21 Status: Ordered diltiazem 300 mg/24 hours oral capsule, extended release 300 mg, 1, capsule, By Mouth, Daily, # 90 capsule, Refills 3, Tot. Refills 3, Maintenance, 12/21/2210:37:00 EST, Route to Pharmacy Electronically, [facility] ([place]), 176, cm, 10/26/21 9:28:00 EST, Height, 110.6, kg, 10/27/20 13:48:00... Start Date: 12/21/21 Status: Ordered doxazosin 4 mg oral tablet 1 tablet = 4 mg, By Mouth, Daily, 0 Refills, Maintenance, 01/30/20 9:12:00 EDT Start Date: 01/30/20 Status: Ordered Ecotrin Low Strength Adult 81 mg oral enteric coated tablet 81, mg, 1, tablet, By Mouth, Daily, 0, 0, 09/17/06 2:07:12, Print RENETTA Number, [id number], Constant Indicator Start Date: 09/17/06 Status: Ordered [...] 3 Refills, Maintenance, 12/21/21 11:36:00 EST, Powder, [facility] ([place]), 1 puffs Inhalation 2 times a day,x90 days, 176, cm, 10/26/21 9:28:00 EST, Height, 110.6, kg, 10/27/20 13:48:00 EST,... Start Date: 12/21/21 Stop Date: 12/16/22 Status: Ordered melatonin 10 mg oral capsule 1 capsule = 10 mg, By Mouth, Daily at bedtime, # 60 capsule, 1 Refills, Maintenance, 12/21/21 11:37:00 EST, [facility] ([place]), 176, cm, 10/26/21 9:28:00 EST, Height, 110.6, kg, 10/27/20 13:48:00 EST, Dry Weight Start Date: 12/21/21 Status: Ordered Metamucil Powder By Mouth, Daily at bedtime, 0 Refills, Maintenance, 05/08/13 11:48:10 EDT Start Date: 05/08/13 Status: Ordered metFORMIN 500 mg oral tablet 1 tablet = 500 mg, By Mouth, 2 times a day, # 180 tablet, 1 Refills, Maintenance, 06/13/22 8:47:00 EDT, Tablet, [facility] 176, cm, 10/26/21 9:28:00 EST, Height, 110.6, kg, 10/27/20 13:48:00 EST, Dry Weight Start Date: 06/13/22 Stop Date: 12/10/22 Status: Ordered montelukast 10 mg oral tablet 1, tablet, By Mouth, Daily, # 90 tablet, Refills 3, Tot. Refills 3, 12/21/21 11:37:00 EST, Route toPharmacy Electronically, [facility] 176, cm, 10/26/21 9:28:00 EST, Height, 110.6, [...] 2004 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 6upper endo 2014 7admitted [facility] 2009 8s/p left tkr 2011 Social History Social History Type Response Smoking Status Former smoker; Other : quit 1989; entered on: 02/26/18 Sex
--- OUTSIDE RECORDS SUMMARY | 2024-10-12 12:32 | XMS_ITS | Continuity of Care Document ---
Author Organization [facility] Zackery lt Address [address] [place] [address]- Care Team Providers Care Acute Care Surgeon Name Role Phone Adeel Fountain MD Primary Care Physician [phone] Encounter [facility] Date(s): 02/10/22 - 03/12/22 [facility] Adult [address] [place] [address]- Allergies, Adverse Reactions, Alerts Substance Reaction Severity [...] (oldterm) 4 08/31/11 Given FluLaval (oldterm) 5 11/2/10 Given Tet/Diphth/Acel, Pertussis (oldterm) 04/06/11 Give n Influenza Virus Vaccine (oldterm) 6 08/29/09 Given Influenza Virus Vaccine (oldterm) 10/10/08 Given Influenza Virus Vaccine (oldterm) 7 09/22/07 Given Pneumococcal Vaccine (oldterm) 09/23/06 Given tetanus-diphtheria toxoids (Td) 11/21/00 Given 1Location History: MARIO 2Result Comment: [08/27/2015] HIGH DOSE 3Admin Note: TEREBETTY 4Admin Note: Biomedical [facility] of [facility] [place] 5Admin Note: BIOMEDICAL JON 6Admin Note: GIVEN [...] 12/21/21 11:37:00 EST, Route to Pharmacy Electronically, [id number], [facility] ([place]), 176, cm, 10/26/21 9:28:00 EST, H... Start Date: 12/21/21 Status: Ordered CoQ10 = 300 mg, By Mouth, Daily, 0 Refills, Maintenance, 07/04/18 10:56:18 EDT Start Date: 07/04/18 Status: Ordered Crestor 5 mg oral tablet 1 tablet = 5 mg, By Mouth, Daily, # 90 tablet, 3 Refills, Maintenance, 12/21/21 11:37:00 EST, [facility] Partial fill upon patient request if the prescription is for aschedule II opioid drug., 176, cm, 10/26/21 9:28:00... Start Date: 12/21/21 Status: Ordered diltiazem 300 mg/24 hours oral capsule, extended release 300 mg, 1, capsule, By Mouth, Daily, # 90 capsule, Refills 3, Tot. Refills 3, Maintenance, 12/21/2210:37:00 EST, Route to Pharmacy Electronically, [facility] ([place]), 176, cm, 10/26/21 9:28:00 [...] 0, 0, 09/17/06 2:07:12, Print RENETTA Number, [id number], Constant Indicator Start Date: 09/17/06 Status: Ordered [...] 1 Refills, Maintenance, 12/21/21 11:37:00 EST, [facility] ([place]), 176, cm, 10/26/21 9:28:00 [...] 1 Refills, Maintenance, 06/13/22 8:47:00 EDT, [facility] 176, cm, 10/26/21 9:28:00 EST, Height, 110.6, kg, 10/27/20 13:48:00 EST, Dry Weight Start Date: 06/13/22 Stop Date: 12/10/22 Status: Ordered montelukast 10 mg oral tablet 1, tablet, By Mouth, Daily, # 90 tablet, Refills 3, Tot. Refills 3, 12/21/21 11:37:00 EST, Route toPharmacy Electronically, [facility] ([place]), 176, cm, 10/26/21 9:28:00 [...] no history of insulin use(Confirmed) Active 1EGD 202018; repeat 2022 3Colonoscopy 2013 polyp, repeat 2017 4EGD 2014 positive for gastroparesis. 5egd 2003 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 6upper endo 2014 7admitted [facility] 2009 8s/p left tkr 2012 Social History Social History Type Response Smoking Status Former smoker; Other : quit 1989; entered on: 02/26/18 Sex
--- OUTSIDE RECORDS SUMMARY | 2024-10-12 12:32 | XMS_ITS | Continuity of Care Document ---
Author Organization [facility] Zackery lt Address [address] [place] [address]- Care Team Providers Care Tobacco Sieve Operator Name Role Phone Adeel Fountain MD Primary Care Physician [phone] Encounter [facility] Date(s): 02/16/23 - 03/18/23 [facility] Adult [address] [place] [address]- Allergies, Adverse Reactions, Alerts Substance Reaction Severity Status Percocet 5/325 1 makes me feel like pulling skin off Active morphine 2 don't want it Active 1pt feels like taking his skin off when on percocet 2pt feels like taking his skin off when given morphine Immunizations Given and Recorded Vaccine Date Status Refusal Reason [id number] 12y+ bivalent booster vax 12/13/22 Given pneumococcal [...] 4Admin Note: [facility] [place] 5Admin Note: [...] 12/21/21 11:37:00 EST, Route to Pharmacy Electronically, [id number], [facility]), 176, cm, 10/26/21 9:28:00 EST, H... Start Date: 12/21/21 Status: Ordered cetirizine 10 mg oral tablet 1 tablet = 10 mg, By Mouth, Daily, # 30 tablet, 1 Refills, Maintenance, 02/16/23 10:18:00 EDT, Tablet, [facility], Partial fill upon [...] 3 Refills, Maintenance, 02/16/23 10:00:00 EDT, Tablet, [facility], Partial fill upon patient request if the prescription is for a schedule IIopioid drug., 175, cm, 02/16/23 9:32:00 EDT, Height... Start Date: 02/16/23 Status: Ordered diltiazem 300 mg/24 hours oral capsule, extended release 300 mg, 1, capsule, By Mouth, Daily, # 90 capsule, Refills 3, Tot. Refills 3, Maintenance, 04/28/2210:41:00 EDT, Route to Pharmacy Electronically, [facility], 175, cm, 02/11/22 [...] 0, 0, 09/17/06 2:07:12, Print RENETTA Number, [id number], Constant Indicator Start Date: 09/17/06 Status: Ordered Farxiga 5 mg oral tablet 1 tablet = 5 mg, By Mouth, Daily, # 90 tablet, 3 Refills, Maintenance, 12/13/22 14:14:00 EST, Tablet, [facility], Partial fill upon [...] 11:36:00 EST, Powder, [facility]), 1 puffs Inhalation 2 times a day,x90 days, 176, cm, 10/26/21 9:28:00 EST, Height, 110.6, kg, 10/27/20 13:48:00 EST,... Start Date: 12/21/21 Stop Date: 12/16/22 Status: Ordered fluticasone 50 mcg/inh nasal spray 2 sprays, Nares, Both, Daily in AM, in each nostril, # 16 Gm, 1 Refills, Maintenance, 02/16/23 10:19:00 EDT, [place], [facility], Partial fill upon [...] 1 Refills, Maintenance, 12/21/21 11:37:00 EST, [facility]), 176, cm, 10/26/21 9:28:00 EST, Height, 110.6, kg, 10/27/20 13:48:00 EST, Dry Weight Start Date: 12/21/21 Status: Ordered Metamucil Powder By Mouth, Daily at bedtime, 0 Refills, Maintenance, 05/08/13 11:48:10 EDT Start Date: 05/08/13 Status: Ordered montelukast 10 mg oral tablet 1, tablet, By Mouth, Daily, # 90 tablet, Refills 3, Tot. Refills 3, 03/10/23 10:02:00 EDT, Route toPharmacy Electronically, [facility], 175, cm, 02/16/23 9:32:00 EDT, Height, 108, kg, 02/11/22 2:26:00 EDT, Dry Weight Start Date: 03/10/23 Status: Ordered omeprazole 20 mg oral enteric coated capsule 1 capsule, By Mouth, Daily, # 90 capsule, 3 Refills, Maintenance, 02/16/23 9:59:00 EDT, [facility], 175, cm, 02/16/23 9:32:00 EDT, Height, 108, kg, 02/11/22 2:26:00 EDT, Dry Weight Start Date: 02/16/23 Status: Ordered Ozempic 2 mg/3 mL (0.25 mg or 0.5 mg dose) subcutaneous solution = 0.5 mg, Subcutaneous Injection, Every week, E11.9 diabetes type 2, # 3 mL, 6 Refills, Maintenance, 03/15/23 15:27:00 EDT, [facility], Partial fill upon [...] 2003 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 6upper endo 2014 7admitted [facility] 2009 8s/p left tkr 2011 Social History Social History Type Response Smoking Status Former smoker; Other : quit 1989; entered on: 02/26/18 Sex Patient Care team information Care Team Personnel Name: Sujey Pereira [facility] RN Member Role: Primary Care Nurse Name: Nickie Calvo RN Position: [facility] RN Member Role: Primary Care Nurse Name: Adeel Dominguez RN [facility] RN Member Role: Primary Care Nurse Name: Tierra Meeks NP Position: Reference Physician Member Role: Primary Care Nurse Address: Address: [address] [place] [address]- [place] Name: Margo Wilkins NP Position[facility] Outreach Member Role: Primary Care Nurse Address: Address: [address] [place] [address]- [place] Name: Adeel Fountain MD [facility] Primary Care Physician Member Role: PCP Address: Address: [address] [place] [address]- [place] Name: Mindy Santiago RN [facility] RN Member Role: Primary Care Nurse Name: Ramón Olivo MD Position: [facility] Infectious Disease MD Member Role: Lifetime Consulting Physician Address: Address: [address] [place] [address] [place] [address]- Care Team Related Persons Name: RICHARD REDDY Address: [address] [address]
--- OUTSIDE RECORDS SUMMARY | 2024-10-12 12:33 | XMS_ITS | Continuity of Care Document ---
Author Organization [facility] Azckery lt Address [address] [place] [address]- Care Team Providers Care Upscale Security Officer Name Role Phone Adeel Fountain MD Primary Care Physician [phone] Encounter [facility] Date(s): 08/24/21 - 09/23/21 [facility] Adult [address] [place] [address]- Allergies, Adverse Reactions, Alerts Substance Reaction Severity [...] Note: ADRY 4Admin Note: [facility]ical Jon of [facility] [place] 5Admin Note: BIOMEDICAL JON 6Admin Note: GIVEN [...] 02/20/21 14:02:00 EDT, Route to Pharmacy Electronically, [id number], [facility], 176, cm, 02/20/21 13:51:00 [...] 0, 0, 09/17/06 2:07:12, Print RENETTA Number, [phone], Constant Indicator Start Date: 09/17/06 Status: Ordered [...] 3 Refills, Maintenance, 05/06/20 14:07:00 EDT, Powder, [facility], 1 puffs Inhalation 2 [...] tablet, 3 Refills, Maintenance, 05/06/20 14:05:00EDT, Tablet, [facility], 175, cm, 05/06/20 13:45:00 [...] tablet, Refills 1, Route to Pharmacy Electronically, [facility], 176, cm, 07/24/21 7:50:00 EDT, Height, 110.6, kg, 10/27/20 13:48:00 EST, Dry Weight Start Date: 08/01/21 Status: Ordered omeprazole 20 mg oral enteric coated capsule 1 capsule, By Mouth, Daily, # 90 capsule, 0 Refills, Maintenance, 07/07/21 10:48:00 EDT, [facility], 176, cm, 06/24/21 14:26:00 [...] 2003 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 6upper endo 2014 7admitted [facility] 2009 8s/p left tkr 2011 Social History Social History Type Response Smoking Status Former smoker; Other : quit 1989; entered on: 02/26/18 Sex
--- OUTSIDE RECORDS SUMMARY | 2024-10-12 12:33 | XMS_ITS | Continuity of Care Document ---
Author Organization [facility] Zackery lt Address [address] [place] [address]- Care Team Providers Care Facing Baster Jumpbasting Name Role Phone Adeel Fountain MD Primary Care Physician Encounter [facility] [place] Date(s): 06/24/21 - 07/24/21 [facility] Adult [address] [place] [address]- Allergies, Adverse Reactions, Alerts Substance Reaction Severity [...] Note: ADRY 4Admin Note: [facility]ical [facility] of [facility] [place] 5Admin Note: BIOMEDICAL JON 6Admin [...] 02/20/21 14:02:00 EDT, Route to Pharmacy Electronically, [id number], [facility], 176, cm, 02/20/21 13:51:00 EDT, Height, 110.... Start Date: 02/20/21 Status: Ordered Cipro 500 mg oral tablet 1 tablet = 500 mg, By Mouth, Every 12 hours, for 14 days, # 28 tablet, 0 Refills, Acute 07/30/21 11:07:00 EDT, 07/16/21 11:07:00 EDT, Tablet, [facility], Partial fill upon patient request if the [...] 0, 0, 09/17/06 2:07:12, Print RENETTA Number, [phone], Constant Indicator Start Date: 09/17/06 Status: Ordered [...] 3 Refills, Maintenance, 05/06/20 14:07:00 EDT, Powder, [facility], 1 puffs Inhalation 2 times [...] tablet, 3 Refills, Maintenance, 05/06/20 14:05:00EDT, Tablet, [facility], 175, cm, 05/06/20 13:45:00 EDT, [...] capsule, 0 Refills, Maintenance, 07/07/21 10:48:00 EDT, [facility], 176, cm, 06/24/21 14:26:00 EDT, [...] 02/12/21 8:21:00 EDT, Route to Pharmacy Electronically, [facility], 176, cm, 12/22/20 10:41:00 EST, [...] with no history of insulin use(Confirmed) Active 18851; repeat 2022 2Colonoscopy 2013 polyp, repeat 2017 3EGD 2014 positive for gastroparesis. 4egd 2003 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 5upper endo 2014 6admitted [facility] 2009 7s/p left tkr 2012 Social History Social History Type Response Smoking Status Former smoker; Other : quit 1989; entered on: 02/26/18 Sex
--- OUTSIDE RECORDS SUMMARY | 2024-10-12 12:33 | XMS_ITS | Continuity of Care Document ---
Author Organization [facility] Zackery lt Address [address] [place] [address]- Care Team Providers Care Pulp Press Tender Name Role Phone Adeel Fountain MD Primary Care Physician [place] [facility] [place] Date(s): 11/08/22 - 12/11/22 [facility] Adult [address] [place] [address]- Attending Physician: Adeel Fountain MD Allergies, Adverse [...] 4Admin Note: [facility] 5Admin Note: BIOMEDICAL JON 6Admin Note: GIVEN [...] 12/21/21 11:37:00 EST, Route to Pharmacy Electronically, [id number], [facility]), 176, cm, 10/26/21 9:28:00 EST, H... Start Date: 12/21/21 Status: Ordered azithromycin 250 mg oral tablet See Instructions, Take 2 tablets on day 1 and 1 tablet daily for next 4 days, # 6 tablet, 0 Refills, Maintenance, 08/31/22 13:38:00 EDT, Tablet, [facility], Partial fill upon patient [...] 3 Refills, Maintenance, 12/21/21 11:37:00 EST, Tablet, [facility] ([facility], Partial fill upon patient request if the prescription is for aschedule II opioid drug., 176, cm, 10/26/21 9:28:00... Start Date: 12/21/21 Status: Ordered diltiazem 300 mg/24 hours oral capsule, extended release 300 mg, 1, capsule, By Mouth, Daily, # 90 capsule, Refills 3, Tot. Refills 3, Maintenance, 04/28/2210:41:00 EDT, Route to Pharmacy Electronically, [facility], 175, cm, 02/11/22 2:26:00 [...] 0, 0, 09/17/06 2:07:12, Print RENETTA Number, [phone], Constant Indicator Start Date: 09/17/06 Status: Ordered [...] 11:36:00 EST, Powder, [facility] ([place]), 1 puffs Inhalation 2 times a day,x90 [...] capsule, 1 Refills, Maintenance, 12/21/21 11:37:00 EST, [facility]), 176, cm, 10/26/21 9:28:00 EST, Height, 110.6, kg, 10/27/20 13:48:00 EST, Dry Weight Start Date: 12/21/21 Status: Ordered Metamucil Powder By Mouth, Daily at bedtime, 0 Refills, Maintenance, 05/08/13 11:48:10 EDT Start Date: 05/08/13 Status: Ordered metFORMIN 500 mg oral tablet 1 tablet = 500 mg, By Mouth, 2 times a day, # 180 tablet, 1 Refills, Maintenance, 10/19/22 14:49:00EST, Tablet, [facility], 175, cm, 09/28/22 10:09:00 EST, Height, 108, kg, 02/11/22 2:26:00 EDT, Dry Weight Start Date: 10/19/22 Stop Date: 04/17/23 Status: Ordered montelukast 10 mg oral tablet 1, tablet, By Mouth, Daily, # 90 tablet, Refills 3, Tot. Refills 3, 12/21/21 11:37:00 EST, Route toPharmacy Electronically, [facility] ([place]), 176, cm, 10/26/21 9:28:00 [...] insulin use Confirmed Active 1EGD 2020; repeat 2023 3Colonoscopy 2013 polyp, repeat 2018 4EGD 2014 positive for gastroparesis. 5egd 2003 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 6upper endo 2015 7admitted [facility] 2009 8s/p left tkr 2011 Social History [...] Member Role: Primary Care Nurse Name: Jeanna SEISMIC ENGINEER, Tierra Tejeda Position: [facility] PCO Associate Professional Member Role: Primary Care Nurse Name: Essie CHRISTINA, Adeel Nguyen Position: [facility] Primary Care Physician Member Role: PCP Address: Address: [address] [place] [address]- Name: Mindy Santiago RN Position: [facility] RN Member Role: Primary Care Nurse Name: Ramón Olivo MD Position: [facility] Infectious Disease MD Member Role: Lifetime Consulting Physician Address: Address: [address] [place] [address] [place] [address]- Care Team Related Persons Name: RICHARD RDEDY Address: home [address] [place] [address]
--- OUTSIDE RECORDS SUMMARY | 2024-10-12 12:33 | XMS_ITS | Continuity of Care Document ---
Author Organization [facility] Zackery lt Address [address] [place] [address]- Care Team Providers Care Thin Film Technician Name Role Phone Adeel Fountain MD Primary Care Physician Encounter [facility] [place] Date(s): 08/21/21 - 08/28/21 [facility] Adult [address] [place] [address]- Encounter Diagnosis Chronic Prostatitis(Discharge Diagnosis) - 08/21/21 Trochanteric bursitis of left hip(Discharge Diagnosis) - 08/21/21 Bilateral knee pain(Discharge Diagnosis) - 08/21/21 Gingival bleeding(Discharge Diagnosis) - 08/21/21 Attending Physician: Daniel HPLC CHEMIST, Margo Carrera Allergies, Adverse Reactions, Alerts Substance Reaction Severity [...] inactivated 3 08/06/13 Gi [facility]udson tetanus/diphtheria/pertussis, acel(Tdap) 8/14/19 Recorded Zostavax (oldterm) 07/30/16 Given pneumococcal 13-valent [...] ADRY 4Admin Note: Biomedical Jon of [facility] [place] 5Admin Note: BIOMEDICAL JON 6Admin Note: GIVEN [...] 02/20/21 14:02:00 EDT, Route to Pharmacy Electronically, [id number], [facility], 176, cm, 02/20/21 [...] 0, 0, 09/17/06 2:07:12, Print RENETTA Number, [id number], Constant Indicator Start Date: 09/17/06 Status: Ordered [...] 3 Refills, Maintenance, 05/06/20 14:07:00 EDT, Powder, [facility], 1 puffs Inhalation 2 times a [...] tablet, 3 Refills, Maintenance, 05/06/20 14:05:00EDT, Tablet, [facility], 175, cm, 05/06/20 [...] tablet, Refills 1, Route to Pharmacy Electronically, [facility], 176, cm, 07/24/21 7:50:00 EDT, Height, 110.6, kg, 10/27/20 13:48:00 EST, Dry Weight Start Date: 08/01/21 Status: Ordered omeprazole 20 mg oral enteric coated capsule 1 capsule, By Mouth, Daily, # 90 capsule, 0 Refills, Maintenance, 07/07/21 10:48:00 EDT, [facility], 176, cm, 06/24/21 14:26:00 [...] barretts 6upper endo 2014 7admitted [facility] 2009 8s/p left tkr 2011 Diagnosis Diagnosis Type Effective Dates Health Status Clinical Service Informant Bilateral knee pain Discharge Diagnosis 08/21/21 Gingival bleeding Discharge Diagnosis 08/21/21 Chronic Prostatitis Discharge Diagnosis 08/21/21 Trochanteric bursitis of left hip Discharge Diagnosis 08/21/21 Vital Signs Most recent to oldest [Reference Range]: 1 Height 176 cm (08/21/21 2:31 PM) Weight 107.9 kg (08/21/21 2:31 PM) Oxygen Saturation [94-100 %] 97 % (08/21/21 2:31 PM) Pulse Rate [55-90 bpm] 83 bpm (08/21/21 2:31 PM) Body Mass Index [18.5-24.99] 34.83 *>HHI* (08/21/21 2:31 PM) Blood Pressure [90-138/55-84 mm Hg] 128/ 82mm Hg (08/21/21 2:31 PM) Temperature [96.8-100.4 DegF] 97.7 DegF (08/21/21 2:31 PM) Blood pressure sites Arm, right (08/21/21 2:31 PM) Social History Social History Type Response Smoking Status Former smoker; Other : quit 1989; entered on: 02/26/18 Sex
--- OUTSIDE RECORDS SUMMARY | 2024-10-12 12:33 | XMS_ITS | Continuity of Care Document ---
Author Organization [facility] Zackery lt Address [address] [place] [address]- Care Team Providers Care Coat Checker Name Role Phone Adeel Fountain MD Primary Care Physician [phone] Encounter [facility] [place] Date(s): 06/25/20 - 07/25/20 [facility] Adult [address] [place] [address]- [facility] Allergies, Adverse Reactions, Alerts Substance Reaction Severity [...] 02/26/18 9:54:20 EDT, Route to Pharmacy Electronically, [id number], [facility] Start Date: 02/26/18 Status: [...] 0, 0, 09/17/06 2:07:12, Print RENETTA Number, [phone], Constant Indicator Start Date: 09/17/06 Status: Ordered [...] 3 Refills, Maintenance, 05/06/20 14:07:00 EDT, Powder, [facility], 1 puffs Inhalation 2 times a day,x90 days, 175, cm, 05/06/20 13:45:00 EDT, Height, 113, kg, 01/06/20 13:04:00 EST, Dry Weight Start Date: 05/06/20 Stop Date: 05/01/21 Status: Ordered Lotrisone 0.05%-1% cream 1 application, Topically, 2 times a day, # 45 Gm, 0 Refills, Maintenance, 01/29/20 11:18:00 EDT, Cream, [facility], 1 application Topically 2 [...] tablet, 3 Refills, Maintenance, 05/06/20 14:05:00EDT, Tablet, [facility], 175, cm, 05/06/20 13:45:00 EDT, Height, 113, kg, 01/06/20 13:04:00 EST, Dry Weight Start Date: 05/06/20 Stop Date: 05/01/21 Status: Ordered omeprazole 20 mg oral enteric coated capsule 1 capsule, By Mouth, Daily, # 90 capsule, 0 Refills, Maintenance, 03/25/20 14:11:00 EDT, [facility], 175, cm, 01/30/20 9:09:00 [...] 01/29/20 11:19:00 EDT, Route to Pharmacy Electronically, [facility], 172, cm, 01/29/20 11:00:00 [...] with no history of insulin use(Confirmed) Active 86475; repeat 2022 2Colonoscopy 2013 polyp, repeat 2018 3EGD 2014 positive for gastroparesis. 4egd 2003 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 5upper endo 2014 6admitted [facility] 2009 7s/p left tkr 2011 Social History Social History Type Response Smoking Status Former smoker; Other : quit 1989; entered on: 02/26/18 Sex
--- OUTSIDE RECORDS SUMMARY | 2024-10-12 12:33 | XMS_ITS | Continuity of Care Document ---
Author Organization [facility] Zackery lt Address [address] [place] [address]- Care Team Providers Care State Archivist Name Role Phone Adeel Fountain MD Primary Care Physician Encounter [facility] [place] Date(s): 06/26/20 - 07/26/20 [facility] Adult [address] [place] [address] Allergies, Adverse Reactions, Alerts Substance Reaction Severity [...] 3Admin Note: ADRY 4Admin Note: Biomedical Jon [facility] 5Admin Note: BIOMEDICAL JON 6Admin Note: [...] 02/26/18 9:54:20 EDT, Route to Pharmacy Electronically, [id number], [facility] Start Date: 02/26/18 Status: [...] 0, 0, 09/17/06 2:07:12, Print RENETTA Number, [phone], Constant Indicator Start Date: 09/17/06 Status: Ordered [...] 3 Refills, Maintenance, 05/06/20 14:07:00 EDT, Powder, [facility], 1 puffs Inhalation 2 times a day,x90 days, 175, cm, 05/06/20 13:45:00 EDT, Height, 113, kg, 01/06/20 13:04:00 EST, Dry Weight Start Date: 05/06/20 Stop Date: 05/01/21 Status: Ordered Lotrisone 0.05%-1% cream 1 application, Topically, 2 times a day, # 45 Gm, 0 Refills, Maintenance, 01/29/20 11:18:00 EDT, Cream, [facility], 1 application Topically 2 [...] tablet, 3 Refills, Maintenance, 05/06/20 14:05:00EDT, Tablet, [facility], 175, cm, 05/06/20 13:45:00 EDT, Height, 113, kg, 01/06/20 13:04:00 EST, Dry Weight Start Date: 05/06/20 Stop Date: 05/01/21 Status: Ordered omeprazole 20 mg oral enteric coated capsule 1 capsule, By Mouth, Daily, # 90 capsule, 0 Refills, Maintenance, 03/25/20 14:11:00 EDT, [facility], 175, cm, 01/30/20 9:09:00 [...] 01/29/20 11:19:00 EDT, Route to Pharmacy Electronically, [facility], 172, cm, 01/29/20 11:00:00 [...] with no history of insulin use(Confirmed) Active 50921; repeat 2022 2Colonoscopy 2013 polyp, repeat 2018 3EGD 2014 positive for gastroparesis. 4egd 2003 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 5upper endo 2014 6admitted [facility] 2009 7s/p left tkr 2011 Social History Social History Type Response Smoking Status Former smoker; Other : quit 1989; entered on: 02/26/18 Sex
--- OUTSIDE RECORDS SUMMARY | 2024-10-12 12:33 | XMS_ITS | Continuity of Care Document ---
Author Organization [facility] Address [address] [place] [address]- Care Team Providers Care Remelt Sugar Boiler Name Role Phone Adeel Fountain MD Primary Care Physician [place] [facility] [place] 06[place] [facility] [address] [place] [address]- Attending Physician: Jaida Blair MD Referring Physician: Adeel Fountain MD Allergies, [...] 4Admin Note: Biomedical [place] [facility] [place] 5Admin Note: BIOMEDICAL JON 6Admin Note: GIVEN [...] 02/20/21 14:02:00 EDT, Route to Pharmacy Electronically, [id number], [facility], 176, cm, 02/20/21 13:51:00 [...] 0, 0, 09/17/06 2:07:12, Print RENETTA Number, [phone], Constant Indicator Start Date: 09/17/06 Status: Ordered [...] 3 Refills, Maintenance, 05/06/20 14:07:00 EDT, Powder, [facility], 1 puffs Inhalation 2 times a day,x90 days, 175, cm, 05/06/20 13:45:00 EDT, Height, 113, kg, 01/06/20 13:04:00 EST, Dry Weight Start Date: 05/06/20 Stop Date: 05/01/21 Status: Ordered levoFLOXacin 500 mg oral tablet 1 tablet = 500 mg, By Mouth, Every 24 hours, for 14 days, # 14 tablet, 0 Refills, Acute 06/12/21 7:14:00 EDT, 05/29/21 7:14:00 EDT, Tablet, [facility], Partial fill upon patient [...] tablet, 3 Refills, Maintenance, 05/06/20 14:05:00EDT, Tablet, [facility], 175, cm, 05/06/20 13:45:00 [...] capsule, 0 Refills, Maintenance, 04/01/21 16:20:00 EDT, [facility], 176, cm, 03/20/21 6:57:00 [...] 02/12/21 8:21:00 EDT, Route to Pharmacy Electronically, [facility], 176, cm, 12/22/20 10:41:00 [...] with no history of insulin use(Confirmed) Active 18239; repeat 2022 2Colonoscopy 2013 polyp, repeat 2018 3EGD 2014 positive for gastroparesis. 4egd 2003 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 5upper endo 2014 6admitted [facility] 2009 7s/p left tkr 2011 Vital Signs Most recent to oldest [Reference Range]: 1 Height 176 cm (05/29/21 11:51 AM) Oxygen Saturation [94-100 %] 97 % (05/29/21 11:51 AM) Pulse Rate [55-90 bpm] 115 bpm *H* (05/29/21 11:51 AM) Blood Pressure [90-138/55-84 mm Hg] 141/ 74mm Hg *H* (05/29/21 11:51 AM) Respiratory Rate [16-30 br/min] 23 br/mi n (05/29/21 11:51 AM) Temperature [96.8-100.4 DegF] 98.8 DegF (05/29/21 11:51 AM) Mode of Delivery (Oxygen) Room air (05/29/21 11:51 AM) Blood pressure sites Arm, left (05/29/21 11:51 AM) Temperature Route Temporal (05/29/21 11:51 AM) Social History Social History Type Response Smoking Status Former smoker; Other : quit 1989; entered on: 02/26/18 Sex
--- OUTSIDE RECORDS SUMMARY | 2024-10-12 12:33 | XMS_ITS | Continuity of Care Document ---
Author Organization [facility] Address [address] [place] [address] Dr [address] [place] [address]- Care Team Providers Care Dining Car Waiter/Waitress Name Role Phone Adeel Fountain MD Primary Care Physician [phone] Encounter [facility] Date(s): 01/30/20 - 02/09/[address] [place] [address]- [facility] Attending Physician: Vibha Wallace Admitting [...] Note: ADRY 4Admin Note: Biomedical Jon of [facility] 5Admin Note: BIOMEDICAL JON [...] 02/26/18 9:54:20 EDT, Route to Pharmacy Electronically, [id number], [facility] Start Date: 02/26/18 Status: [...] 0, 0, 09/17/06 2:07:12, Print RENETTA Number, [id number], Constant Indicator Start Date: 09/17/06 Status: Ordered [...] 0 Refills, Maintenance, 01/29/20 11:18:00 EDT, Cream, [facility], 1 application Topically 2 [...] TAKE 1 CAPSULE BY MOUTH ONCE DAILY, [facility] Start Date: 09/04/19 Status: Ordered Patient's Own Meds Maintenance, artichoke extract 1 tab daily, 07/04/18 11:15:51 EDT Start Date: 07/04/18 Status: Ordered Singulair 10 mg oral tablet 10 mg, 1, tablet, By Mouth, Daily, # 90 tablet, Refills 3, Tot. Refills 3, Maintenance, 01/29/20 11:19:00 EDT, Route to Pharmacy Electronically, [facility], 172, cm, 01/29/20 11:00:00 [...] Acute subdural hematoma(Confirmed) Active Thoracic spondylosis(Confirmed) Active 18902; repeat 2022 2Colonoscopy 2013 polyp, repeat 2017 3EGD 2014 positive for gastroparesis. 4egd 2003 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 5upper endo 2014 6admitted [facility] 2009 7s/p left tkr 2011 Social History Social History Type Response Smoking Status Former smoker; Other : quit 1989; entered on: 02/26/18 Sex
--- OUTSIDE RECORDS SUMMARY | 2024-10-12 12:33 | XMS_ITS | Continuity of Care Document ---
Author Organization [facility] Address [address] [place] [address]- Care Team Providers Care Barber Stylist Name Role Phone Adeel Fountain MD Primary Care Physician [phone] Encounter [facility] [place] Date(s): 07/01/21 - 07/31/21 [facility] Adult [address] [place] [address]- Allergies, Adverse Reactions, Alerts Substance Reaction Severity [...] Note: ADRY 4Admin Note: Biomedical Jon of [facility] [place] 5Admin Note: BIOMEDICAL [...] 02/20/21 14:02:00 EDT, Route to Pharmacy Electronically, [id number], [facility], 176, cm, 02/20/21 13:51:00 [...] 0, 0, 09/17/06 2:07:12, Print RENETTA Number, [phone], Constant Indicator Start Date: 09/17/06 Status: Ordered [...] 3 Refills, Maintenance, 05/06/20 14:07:00 EDT, Powder, [facility], 1 puffs Inhalation 2 times [...] tablet, 3 Refills, Maintenance, 05/06/20 14:05:00EDT, Tablet, [facility], 175, cm, 05/06/20 [...] capsule, 0 Refills, Maintenance, 07/07/21 10:48:00 EDT, [facility], 176, cm, 06/24/21 14:26:00 [...] 02/12/21 8:21:00 EDT, Route to Pharmacy Electronically, [facility], 176, cm, 12/22/20 10:41:00 [...] with no history of insulin use(Confirmed) Active 16605; repeat 2022 2Colonoscopy 2013 polyp, repeat 2017 3EGD 2014 positive for gastroparesis. 4egd 2003 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 5upper endo 2014 6admitted [facility] 2009 7s/p left tkr 2011 Social History Social History Type Response Smoking Status Former smoker; Other : quit 1989; entered on: 02/26/18 Sex
--- OUTSIDE RECORDS SUMMARY | 2024-10-12 12:33 | XMS_ITS | Continuity of Care Document ---
Author Organization [facility] Address [address] [place] [address]- Care Team Providers Care High School Math Tutor Name Role Phone Adeel Fountain MD Primary Care Physician Encounter [facility] Date(s): 06/16/21 - 07/16/21 [facility] [address] [place] [address]- Allergies, Adverse Reactions, Alerts Substance Reaction Severity [...] 02/20/21 14:02:00 EDT, Route to Pharmacy Electronically, [id number], [facility], 176, cm, 02/20/21 13:51:00 EDT, Height, 110.... Start Date: 02/20/21 Status: Ordered Cipro 500 mg oral tablet 1 tablet = 500 mg, By Mouth, Every 12 hours, for 14 days, # 28 tablet, 0 Refills, Acute 07/30/21 11:07:00 EDT, 07/16/21 11:07:00 EDT, Tablet, [facility], Partial fill upon patient request if the [...] 0, 0, 09/17/06 2:07:12, Print RENETTA Number, [phone], Constant Indicator Start Date: 09/17/06 Status: Ordered [...] 3 Refills, Maintenance, 05/06/20 14:07:00 EDT, Powder, [facility], 1 puffs Inhalation 2 times [...] tablet, 3 Refills, Maintenance, 05/06/20 14:05:00EDT, Tablet, [facility], 175, cm, 05/06/20 13:45:00 EDT, [...] capsule, 0 Refills, Maintenance, 07/07/21 10:48:00 EDT, [facility], 176, cm, 06/24/21 14:26:00 EDT, [...] 02/12/21 8:21:00 EDT, Route to Pharmacy Electronically, [facility], 176, cm, 12/22/20 10:41:00 EST, [...] with no history of insulin use(Confirmed) Active 00045; repeat 2022 2Colonoscopy 2013 polyp, repeat 2017 3EGD 2014 positive for gastroparesis. 4egd 2003 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 5upper endo 2014 6[facility] 7s/p left tkr 2012 Social History Social History Type Response Smoking Status Former smoker; Other : quit 1989; entered on: 02/26/18 Sex
--- OUTSIDE RECORDS SUMMARY | 2024-10-12 12:33 | XMS_ITS | Continuity of Care Document ---
Author Organization [facility] Address [address] [place] [address]- Care Team Providers Care Machine Tool Technician Instructor Name Role Phone Adeel Fountain MD Primary Care Physician En[place] [facility] [place](s): 07/21/20 - 08/20/20 [facility] Adult [address] [place] [address]- [facility] Allergies, Adverse Reactions, Alerts Substance Reaction [...] tetanus-diphtheria toxoids (Td) 11/21/00 Given 1Location History: [facility] 2Result Comment: [08/27/2015] HIGH DOSE 3Admin Note: [...] 02/26/18 9:54:20 EDT, Route to Pharmacy Electronically, [id number], [facility] Start Date: 02/26/18 Status: Ordered Augmentin 875 mg-125 mg oral tablet 1 tablet, By Mouth, Every 12 hours, for 10 days, # 20 tablet, 0 Refills, Acute 08/27/20 5:29:00 EDT, 08/17/20 5:29:00 EDT, Tablet, [facility], 176, cm, 07/30/20 13:27:00 [...] 0, 0, 09/17/06 2:07:12, Print RENETTA Number, [phone], Constant Indicator Start Date: 09/17/06 Status: Ordered [...] 3 Refills, Maintenance, 05/06/20 14:07:00 EDT, Powder, [facility], 1 puffs Inhalation 2 times a day,x90 days, 175, cm, 05/06/20 13:45:00 EDT, Height, 113, kg, 01/06/20 13:04:00 EST, Dry Weight Start Date: 05/06/20 Stop Date: 05/01/21 Status: Ordered Lotrisone 0.05%-1% cream 1 application, Topically, 2 times a day, # 45 Gm, 0 Refills, Maintenance, 01/29/20 11:18:00 EDT, Cream, [facility], 1 application Topically 2 [...] tablet, 3 Refills, Maintenance, 05/06/20 14:05:00EDT, Tablet, [facility], 175, cm, 05/06/20 13:45:00 EDT, Height, 113, kg, 01/06/20 13:04:00 EST, Dry Weight Start Date: 05/06/20 Stop Date: 05/01/21 Status: Ordered omeprazole 20 mg oral enteric coated capsule 1 capsule, By Mouth, Daily, # 90 capsule, 0 Refills, Maintenance, 03/25/20 14:11:00 EDT, [facility], 175, cm, 01/30/20 9:09:00 [...] 01/29/20 11:19:00 EDT, Route to Pharmacy Electronically, [facility], 172, cm, 01/29/20 11:00:00 [...] with no history of insulin use(Confirmed) Active 91462; repeat 2022 2Colonoscopy 2013 polyp, repeat 2017 3EGD 2014 positive for gastroparesis. 4egd 2003 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 5upper endo 2014 6admitted [facility] 2009 7s/p left tkr 2011 Social History Social History Type Response Smoking Status Former smoker; Other : quit 1989; entered on: 02/26/18 Sex
--- OUTSIDE RECORDS SUMMARY | 2024-10-12 12:33 | XMS_ITS | Continuity of Care Document ---
Author Organization [facility] Address [address] [place] [address]- Care Team Providers Care Asset Protection Officer Name Role Phone Adeel Fountain MD Primary Care Physician [place] [facility] [place] 07[place]21 [facility] Adult [address] [place] [address]- Encounter Diagnosis Infection of urinary tract(Discharge Diagnosis) - 06/24/21 BPH (benign prostatic hyperplasia)(Discharge Diagnosis) - 06/24/21 Attending Physician: Daniel BEET END SUPERVISOR, Margo Carrera Allergies, Adverse Reactions, Alerts Substance [...] Zostavax (oldterm) 07/30/16 Given pneumococcal 13-valent vaccine 1/22/15 Given Pneumococcal Vacc (oldterm) 01/17/13 Given FluLaval [...] Note: ADRY 4Admin Note: Biomedical Jon of [facility] [place] [place] 5Admin Note: BIOMEDICAL JON 6Admin Note: GIVEN [...] 02/20/21 14:02:00 EDT, Route to Pharmacy Electronically, [id number], [facility], 176, cm, 02/20/21 13:51:00 EDT, Height, 110.... Start Date: 02/20/21 Status: Ordered Cipro 500 mg oral tablet 1 tablet = 500 mg, By Mouth, Every 12 hours, for 14 days, # 28 tablet, 0 Refills, Acute 07/15/21 17:02:00 EDT, 07/01/21 17:02:00 EDT, Tablet, [facility], Partial fill upon [...] 0, 0, 09/17/06 2:07:12, Print RENETTA Number, [phone], Constant Indicator Start Date: 09/17/06 Status: Ordered [...] 3 Refills, Maintenance, 05/06/20 14:07:00 EDT, Powder, [facility], 1 puffs Inhalation 2 [...] tablet, 3 Refills, Maintenance, 05/06/20 14:05:00EDT, Tablet, [facility], 175, cm, 05/06/20 [...] capsule, 0 Refills, Maintenance, 04/01/21 16:20:00 EDT, [facility], 176, cm, 03/20/21 6:57:00 EDT, [...] 02/12/21 8:21:00 EDT, Route to Pharmacy Electronically, [facility], 176, cm, 12/22/20 10:41:00 EST, [...] with no history of insulin use(Confirmed) Active 18427; repeat 2022 2Colonoscopy 2013 polyp, repeat 2018 3EGD 2014 positive for gastroparesis. 4egd 2003 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 5upper endo 2014 6admitted [facility] 2009 7s/p left tkr 2011 Diagnosis Diagnosis Type Effective Dates Health Status Cl inical Service Informant Infection of urinary tract Discharge Diagnosis 06/24/21 BPH (benign prostatic hyperplasia) Discharge Diagnosis 06/24/21 Vital Signs Most recent to oldest [Reference Range]: 1 Height 176 cm (06/24/21 2:26 PM) Weight 108.6 kg (06/24/21 2:26 PM) Oxygen Saturation [94-100 %] 98 % (06/24/21 2:26 PM) Pulse Rate [55-90 bpm] 74 bpm (06/24/21 2:26 PM) Body Mass Index [18.5-24.99] 35.06 *>HHI* (06/24/21 2:26 PM) Blood Pressure [90-138/55-84 mm Hg] 134/ 72mm Hg (06/24/21 2:26 PM) Respiratory Rate [16-30 br/min] 18 br/mi n (06/24/21 2:26 PM) Temperature [96.8-100.4 DegF] 97.9 DegF (06/24/21 2:26 PM) Blood pressure sites Arm, left (06/24/21 2:26 PM) Temperature Route Oral (06/24/21 2:26 PM) Social History Social History Type Response Smoking Status Former smoker; Other : quit 1989; entered on: 02/26/18 Sex
--- OUTSIDE RECORDS SUMMARY | 2024-10-12 12:33 | XMS_ITS | Continuity of Care Document ---
Author Organization [facility] Address [address] [place] [address]- Care Team Providers Care Outside Plant Supervisor Name Role Phone Adeel Fountain MD Primary Care Physician [place] [facility] [place] 01/16/21 [facility] Adult [address] [place] [address]- Allergies, Adverse Reactions, Alerts Substance Reaction Severity [...] 3Admin Note: ADRY 4Admin Note: Biomedical Jon [facility] 5Admin Note: BIOMEDICAL JON 6Admin Note: [...] 02/26/18 9:54:20 EDT, Route to Pharmacy Electronically, [id number], [facility] Start Date: 02/26/18 Status: Ordered [...] 0, 0, 09/17/06 2:07:12, Print RENETTA Number, [phone], Constant Indicator Start Date: 09/17/06 Status: Ordered [...] 3 Refills, Maintenance, 05/06/20 14:07:00 EDT, Powder, [facility], 1 puffs Inhalation 2 times a day,x90 days, 175, cm, 05/06/20 13:45:00 EDT, Height, 113, kg, 01/06/20 13:04:00 EST, Dry Weight Start Date: 05/06/20 Stop Date: 05/01/21 Status: Ordered Lotrisone 0.05%-1% cream 1 application, Topically, 2 times a day, # 45 Gm, 0 Refills, Maintenance, 01/29/20 11:18:00 EDT, Cream, [facility], 1 application Topically 2 times [...] tablet, 3 Refills, Maintenance, 05/06/20 14:05:00EDT, Tablet, [facility], 175, cm, 05/06/20 13:45:00 EDT, Height, 113, kg, 01/06/20 13:04:00 EST, Dry Weight Start Date: 05/06/20 Stop Date: 05/01/21 Status: Ordered omeprazole 20 mg oral enteric coated capsule 1 capsule, By Mouth, Daily, # 90 capsule, 0 Refills, Maintenance, 12/27/20 11:35:00 EST, [facility], 176, cm, 12/22/20 10:41:00 EST, [...] 01/29/20 11:19:00 EDT, Route to Pharmacy Electronically, [facility], 172, cm, 01/29/20 11:00:00 EDT,Height, [...] with no history of insulin use(Confirmed) Active 26778; repeat 2022 2Colonoscopy 2013 polyp, repeat 2017 3EGD 2014 positive for gastroparesis. 4egd 2003 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 5upper endo [address] [facility] 2009 7s/p left tkr 2011 Social History Social History Type Response Smoking Status Former smoker; Other : quit 1989; entered on: 02/26/18 Sex
--- OUTSIDE RECORDS SUMMARY | 2024-10-12 12:33 | XMS_ITS | Continuity of Care Document ---
Author Organization [facility]ackery Address [address] [place] [address]- Care Team Providers Care Bush Hog Operator Name Role Phone Adeel Fountain MD Primary Care Physician Encounter [facility] [place] Date(s): 05/06/20 - 05/13/20 [facility] Adult [address] [place] [address]- [place] Encounter Diagnosis Hypercholesterolemia(Discharge Diagnosis) - 05/06/20 Hypertension(Discharge Diagnosis) - 05/06/20 Attending Physician: Adeel Fountain MD Allergies, Adverse [...] 2Result Comment: [08/27/2015] HIGH DOSE 3Admin Note: PHYLICIAPAMELA 4Admin Note: Biomedical Jon of [facility] [place] 5Admin Note: BIOMEDICAL JON 6Admin Note: GIVEN [...] 02/26/18 9:54:20 EDT, Route to Pharmacy Electronically, [id number], [facility] Start Date: 02/26/18 Status: [...] 0, 0, 09/17/06 2:07:12, Print RENETTA Number, [phone], Constant Indicator Start Date: 09/17/06 Status: Ordered [...] 3 Refills, Maintenance, 05/06/20 14:07:00 EDT, Powder, [facility], 1 puffs Inhalation 2 times a day,x90 days, 175, cm, 05/06/20 13:45:00 EDT, Height, 113, kg, 01/06/20 13:04:00 EST, Dry Weight Start Date: 05/06/20 Stop Date: 05/01/21 Status: Ordered Lotrisone 0.05%-1% cream 1 application, Topically, 2 times a day, # 45 Gm, 0 Refills, Maintenance, 01/29/20 11:18:00 EDT, Cream, [facility], 1 application Topically 2 times [...] tablet, 3 Refills, Maintenance, 05/06/20 14:05:00EDT, Tablet, [facility], 175, cm, 05/06/20 13:45:00 EDT, Height, 113, kg, 01/06/20 13:04:00 EST, Dry Weight Start Date: 05/06/20 Stop Date: 05/01/21 Status: Ordered omeprazole 20 mg oral enteric coated capsule 1 capsule, By Mouth, Daily, # 90 capsule, 0 Refills, Maintenance, 03/25/20 14:11:00 EDT, [facility], 175, cm, 01/30/20 9:09:00 [...] 01/29/20 11:19:00 EDT, Route to Pharmacy Electronically, [facility], 172, cm, 01/29/20 11:00:00 [...] with no history of insulin use(Confirmed) Active 75550; repeat 2022 2Colonoscopy 2013 polyp, repeat 2018 3EGD 2014 positive for gastroparesis. 4egd 2003 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 5upper endo 2014 6admitted [facility] 2009 7s/p left tkr 2011 Diagnosis Diagnosis Type Effective Dates Health Status Clinical Service Informant Hypercholesterolemia Discharge Diagnosis 05/06/20 Hypertension Discharge Diagnosis 05/06/20 Vital Signs Most recent to oldest [Reference Range]: 1 Height 175 cm (05/06/20 1:45 PM) Weight 115.5 kg (05/06/20 1:45 PM) Oxygen Saturation [94-100 %] 96 % (05/06/20 1:45 PM) Pulse Rate [55-90 bpm] 84 bpm (05/06/20 1:45 PM) Body Mass Index [18.5-24.99] 37.71 *>HHI* (05/06/20 1:45 PM) Blood Pressure [90-138/55-84 mm Hg] 122/ 68mm Hg (05/06/20 1:45 PM) Respiratory Rate [16-30 br/min] 12 br/mi n *L* (05/06/20 1:45 PM) Mode of Delivery (Oxygen) Room air (05/06/20 1:45 PM) Blood pressure sites Arm, left (05/06/20 1:45 PM) Weight Obtained Via Standing scale (05/06/20 1:45 PM) Social History Social History Type Response Smoking Status Former smoker; Other : quit 1989; entered on: 02/26/18 Sex
--- OUTSIDE RECORDS SUMMARY | 2024-10-12 12:33 | XMS_ITS | Continuity of Care Document ---
Author Organization [facility] Elier Zackery lt Address [address] [place] [address]- Care Team Providers Care Computer Analyst Supervisor Name Role Phone Adeel Fountain MD Primary Care Physician [facility]24 - 08/29/24 [facility] Adult [address] [place] [address]- Attending Physician: Adeel Fountain MD Allergies, Adverse [...] RSV vaccine preF3, recombinant 10/05/23 Recorded SARS-CoV-2(COVID-19)mRNA-LNP vac([id number]) 09/22/23 Recorded [id number] 12y+ bivalent booster vax 12/13/22 Given pneumococcal [...] [facility] 5Admin Note: BIOMEDICAL JON 6Admin [...] 12/21/21 11:37:00 EST, Route to Pharmacy Electronically, [id number], [facility], 176, cm, 10/26/21 9:28:00 EST, H... Start [...] 0, 0, 09/17/06 2:07:12, Print RENETTA Number, [id number], Constant Indicator Start Date: 09/17/06 Status: Ordered [...] Gm, 1 Refills, Maintenance, 02/16/23 10:19:00 EDT, [place], [facility], Partial fill upon patient [...] 06/19/24 16:54:00 EDT, Route to Pharmacy Electronically, [facility], Partial fill upon patient requestif the prescription is for a schedule II opioid geovanna... Start Date: 06/19/24 Status: Ordered isosorbide mononitrate 30 mg oral tablet, extended release 30 mg, 1, tablet, By Mouth, Daily in AM, # 30 tablet, Refills 11, Tot. Refills 11, Maintenance, 08/22/24 15:28:00 EDT, Route to Pharmacy Electronically, [facility] # [facility], Partial fill upon patientrequest if the prescription is for a schedule II op... Start Date: 08/22/24 Status: Ordered melatonin 10 mg oral capsule 1 capsule = 10 mg, By Mouth, Daily at bedtime, # 60 capsule, 1 Refills, Maintenance, 12/21/21 11:37:00 EST, [facility]), 176, cm, 10/26/21 9:28:00 EST, Height, 110.6, kg, 10/27/20 13:48:00 EST, Dry Weight Start Date: 12/21/21 Status: Ordered Metamucil Powder By Mouth, Daily at bedtime, 0 Refills, Maintenance, 05/08/13 11:48:10 EDT Start Date: 05/08/13 Status: Ordered montelukast 10 mg oral tablet 1, tablet, By Mouth, Daily, # 90 tablet, Refills 1, Maintenance, 07/20/24 4:49:00 EDT, Route to Pharmacy Electronically, [facility], 175, [...] 3 Refills, Maintenance, 04/12/23 16:08:00 EDT, Powder, [facility] # [facility], Partial [...] 2003 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 6upper endo [address] [facility] 2009 8s/p left tkr 2011 Vital Signs Most recent to oldest [Reference Range]: 1 Height 175 cm (08/22/24 2:47 PM) Weight 112.4 kg (08/22/24 2:47 PM) Oxygen Saturation [94-100 %] 98 % (08/22/24 2:47 PM) Pulse Rate [55-90 bpm] 80 bpm (08/22/24 2:47 PM) Body Mass Index [18.5-24.99 kg/m2] 36.7 kg/m2 *>HHI* (08/22/24 2:47 PM) Blood Pressure [90-138/55-84 mm Hg] 132/ 60mm Hg (08/22/24 2:47 PM) Mode of Delivery (Oxygen) Room air (08/22/24 2:47 PM) Blood pressure sites Arm, left (08/22/24 2:47 PM) Weight Obtained Via Standing scale (08/22/24 2:47 PM) Social History Social History Type Response Smoking Status Former smoker, quit more than 30 days ago; Other: quit in 1989; entered on: 05/09/23 Sex EKG study * Event Display: ECG 12-Lead Authored Date: Please click on pdf link to open report * Event Display: ECG 12-Lead Authored Date: Ventricular Rate: 81 BPM Atrial Rate: 81 BPM P-R Interval: 156 ms QRS Duration: 108 ms Q-T Interval: 410 ms QTC Calculation(Bazett): 476 ms P Thomson: 55 degrees R Thomson: 36 degrees T Thomson: 55 degrees Poor data quality, interpretation may be adversely affected Sinus rhythm with Premature supraventricular complexes Otherwise normal ECG When compared with ECG of 09-MAY-2023 12:31, Premature supraventricular complexes are now Present Confirmed by RAIMUNDO IRELAND MD ([id number]) on 08/22/2024 8:16:31 PM [place]: RAIMUNDO IRELAND MD Patient Care team information Care Team Personnel [...] Role: Primary Care Nurse Address: Address: [address] [place] [address]- [place] Name: Margo Wilkins NP Position: [facility] Outreach Member Role: Primary Care Nurse Address: Address: [address] [place] [address]- [place] Name: Adeel Fountain MD Position: [facility] Physician - Primary Care Member Role: PCP Address: Address: [address] [place] [address]- [place] Name: Mindy Santiago RN Position: [facility] RN Member Role: Primary Care Nurse Name: Ramón Olivo MD Position: [facility] Physician - Infectious Disease Member Role: Lifetime Consulting Physician Address: Address: [address] [place] [address] [place] [address]- [place] Care Team Related Persons Name: RICHARD REDDY Address: home [address] [place] [address]
--- OUTSIDE RECORDS SUMMARY | 2024-10-12 12:34 | XMS_ITS | Continuity of Care Document ---
Author Organization [facility] [place] Zackery lt Address [address] [place] [address]- Care Team Providers Care Improvement Spec Name Role Phone Adeel Fountain MD Primary Care Physician [facility]s): 11/10/22 - 12/10/22 [facility] Adult [address] [place] [address]- Allergies, Adverse Reactions, Alerts Substance Reaction Severity [...] 4Admin Note: [facility]ical [facility] [place]Admin Note: BIOMEDICAL JON 6Admin Note: GIVEN [...] 12/21/21 11:37:00 EST, Route to Pharmacy Electronically, [id number], [facility]), 176, cm, 10/26/21 9:28:00 EST, H... Start Date: 12/21/21 Status: Ordered azithromycin 250 mg oral tablet See Instructions, Take 2 tablets on day 1 and 1 tablet daily for next 4 days, # 6 tablet, 0 Refills, Maintenance, 08/31/22 13:38:00 EDT, Tablet, [facility], Partial fill upon patient request if the [...] Tablet, [facility] ([place]), Partial fill upon patient request if the prescription is for aschedule II opioid drug., 176, cm, 10/26/21 9:28:00... Start Date: 12/21/21 Status: Ordered diltiazem 300 mg/24 hours oral capsule, extended release 300 mg, 1, capsule, By Mouth, Daily, # 90 capsule, Refills 3, Tot. Refills 3, Maintenance, 04/28/2210:41:00 EDT, Route to Pharmacy Electronically, [facility], 175, cm, 02/11/22 2:26:00 EDT, [...] 0, 0, 09/17/06 2:07:12, Print RENETTA Number, [id number], Constant Indicator Start Date: 09/17/06 Status: Ordered [...] EST, Powder, [facility] ([place]), 1 puffs Inhalation 2 times a day,x90 [...] capsule, 1 Refills, Maintenance, 12/21/21 11:37:00 EST, [facility]), 176, cm, 10/26/21 9:28:00 EST, Height, 110.6, kg, 10/27/20 13:48:00 EST, Dry Weight Start Date: 12/21/21 Status: Ordered Metamucil Powder By Mouth, Daily at bedtime, 0 Refills, Maintenance, 05/08/13 11:48:10 EDT Start Date: 05/08/13 Status: Ordered metFORMIN 500 mg oral tablet 1 tablet = 500 mg, By Mouth, 2 times a day, # 180 tablet, 1 Refills, Maintenance, 10/19/22 14:49:00EST, Tablet, [facility], 175, cm, 09/28/22 10:09:00 EST, Height, 108, kg, 02/11/22 2:26:00 EDT, Dry Weight Start Date: 10/19/22 Stop Date: 04/17/23 Status: Ordered montelukast 10 mg oral tablet 1, tablet, By Mouth, Daily, # 90 tablet, Refills 3, Tot. Refills 3, 12/21/21 11:37:00 EST, Route toPharmacy Electronically, [facility]), 176, cm, 10/26/21 9:28:00 EST, Height, [...] 2003 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 6upper endo 2015 7admitted [facility] 2009 8s/p left tkr 2011 Social History Social History Type Response Smoking Status Former smoker; Other : quit 1989; entered on: 02/26/18 Sex Patient Care team information Care Team Personnel Name: Sujey Pereira RN Position: [facility] RN Member Role: Primary Care Nurse Name: Nickie Calvo RN Position: [facility] RN Member Role: Primary Care Nurse Name: Adeel Dominguez RN Position: [facility] RN Member Role: Primary Care Nurse Name: Tierra Meeks NP Position: [facility] PCO Associate Professional Member Role: Primary Care Nurse Name: Adeel Fountain MD Position: [facility] Primary Care Physician Member Role: PCP Address: Address: [address] [place] [address]- Name: Mindy Santiago RN Position: [facility] RN Member Role: Primary Care Nurse Name: Ramón Olivo MD Position: [facility] Infectious Disease MD Member Role: Lifetime Consulting Physician Address: Address: [address] [place] [address] [place] [address]- Care Team Related Persons Name: RICHARD REDDY Address: home [address] [place] [address]
--- OUTSIDE RECORDS SUMMARY | 2024-10-12 12:34 | XMS_ITS | Continuity of Care Document ---
Author Organization [facility] Zackery lt Address [address] [place] [address]- Care Team Providers Care Director Post Name Role Phone Adeel Fountain MD Primary Care Physician [facility] Date[facility]s): 07/20/24 - 08/19/24 [facility] Adult [address] [place] [address]- Allergies, Adverse Reactions, Alerts Substance Reaction Severity [...] RSV vaccine preF3, recombinant 10/05/23 Recorded SARS-CoV-2(COVID-19)mRNA-LNP vac([id number]) 09/22/23 Recorded influenza virus vaccine, inactivated 09/15/23 [...] Goyo rded influenza virus vaccine, inactivated 07/30/16 Ogyo rded influenza virus vaccine, inactivated 1, 2 08/23/15 Recorded influenza virus vaccine, inactivated 09/28/14 Goyo rded influenza virus vaccine, inactivated 09/11/14 Goyo rded influenza virus vaccine, inactivated 3 08/06/13 Gi hudson influenza virus vaccine, inactivated 08/04/13 Goyo rded [id number] 12y+ bivalent booster vax 12/13/22 Given pneumococcal [...] Note: ADRY 4Admin Note: [facility]ical [facility]Admin Note: [employer] JON 6Admin Note: GIVEN BY NATALIE 7Admin [...] 12/21/21 11:37:00 EST, Route to Pharmacy Electronically, [id number], [facility]), 176, cm, 10/26/21 9:28:00 EST, H... Start Date: 12/21/21 Status: Ordered cetirizine 10 mg oral tablet 1 tablet, By Mouth, Daily, # 90 tablet, 3 Refills, Maintenance, 07/03/24 15:50:00 EDT, [facility] # [facility], 175, cm, 03/05/24 14:58:00 EDT, Height, 109.6, kg, 05/09/23 12:38:00 EDT, Dry Weight Start Date: 07/03/24 Status: Ordered Crestor 5 mg oral tablet 1 tablet = 5 mg, By Mouth, Daily, # 90 tablet, 1 Refills, Maintenance, 03/16/24 16:26:00 EDT, Tablet, [facility] # 50, Partial fill upon patient request if the prescription is for a schedule II opioid drug., 175, cm, 03/05/24 14:58:00 EDT, Height,... Start Date: 03/16/24 Status: Ordered DilTIAZem (Eqv-Cardizem CD) 300 mg/24 hours oral capsule, extended release 1 capsule, By Mouth, Daily, # 90 capsule, 1 Refills, Maintenance, 08/02/24 10:05:00 EDT, [facility] # [facility], 175, cm, 03/05/24 [...] 0, 0, 09/17/06 2:07:12, Print RENETTA Number, [id number], Constant Indicator Start Date: 09/17/06 Status: Ordered [...] Gm, 1 Refills, Maintenance, 02/16/23 10:19:00 EDT, [place], [facility], Partial fill upon [...] 06/19/24 16:54:00 EDT, Route to Pharmacy Electronically, [facility] # [facility], Partial fill upon patient requestif the prescription is for a schedule II opioid geovanna... Start Date: 06/19/24 Status: Ordered melatonin 10 mg oral capsule 1 capsule = 10 mg, By Mouth, Daily at bedtime, # 60 capsule, 1 Refills, Maintenance, 12/21/21 11:37:00 EST, [facility]), 176, cm, 10/26/21 9:28:00 EST, Height, 110.6, kg, 10/27/20 13:48:00 EST, Dry Weight Start Date: 12/21/21 Status: Ordered Metamucil Powder By Mouth, Daily at bedtime, 0 Refills, Maintenance, 05/08/13 11:48:10 EDT Start Date: 05/08/13 Status: Ordered montelukast 10 mg oral tablet 1, tablet, By Mouth, Daily, # 90 tablet, Refills 1, Maintenance, 07/20/24 4:49:00 EDT, Route to Pharmacy Electronically, [facility], 175, cm, 04/15/24 14:58:00 EDT, Height, 109.6, kg, 05/09/23 12:38:00 EDT, Dry Weight Start Date: 07/20/24 Status: Ordered omeprazole 20 mg oral enteric coated capsule 1 capsule, By Mouth, Daily, # 90 capsule, 1 Refills, Maintenance, 03/09/24 13:03:00 EDT, [facility] # [facility], 175, cm, 03/05/24 14:58:00 EDT, Height, 109.6, kg, 05/09/23 12:38:00 EDT, Dry Weight Start Date: 03/09/24 Status: Ordered Ozempic 2 mg/3 mL (0.25 mg or 0.5 mg dose) subcutaneous solution See Instructions, INJECT 0.5MG UNDER THE SKIN ONCE WEEKLY, # 3 mL, 12 Refills, Maintenance, 01/16/24 15:35:00 EST, [facility], 175, cm, 12/16/23 [...] barretts 6upper endo 2014 7admitted [facility] 2009 8s/p left tkr 2011 Social [...] Member Role: Primary Care Nurse Address: Address: [address] [place] [address]- [place] Name: Margo Wilkins NP Position: [facility] Outreach Member Role: Primary Care Nurse Address: Address: [address] [place] [address]- [place] Name: Adeel Fountain MD Position: [facility] Physician - Primary Care Member Role: PCP Address: Address: [address] [place] [address]- [place] Name: Mindy Santiago RN Position: [facility] RN Member Role: Primary Care Nurse Name: Ramón Olivo MD Position: [facility] Physician - Infectious Disease Member Role: Lifetime Consulting Physician Address: Address: [address] [place] [address] [place] [address]- [place] Care Team Related Persons Name: RICHARD REDDY Address: home [address] [place] [address]
--- OUTSIDE RECORDS SUMMARY | 2024-10-12 12:34 | XMS_ITS | Continuity of Care Document ---
Author Organization [facility] Address [address] [place] [address] [address] [place] [address]- Care Team Providers Care Factory Expert Name Role Phone Adeel Fountain MD Primary Care Physician [phone] [place] [facility] [place] 12/22/20 - 12/29/[address] [place] [address]- Encounter Diagnosis Left lower quadrant abdominal pain(Discharge Diagnosis) - 12/22/20 Attending Physician: Gilbert Newsome MD Referring Physician: Omkar Caban MD Allergies, Adverse Reactions, Alerts Substance Reaction [...] Note: ADRY 4Admin Note: Biomedical Jon of [facility] [place] 5Admin Note: BIOMEDICAL JON 6Admin Note: GIVEN [...] 02/26/18 9:54:20 EDT, Route to Pharmacy Electronically, [id number], [facility] Start Date: 02/26/18 Status: Ordered [...] 0, 0, 09/17/06 2:07:12, Print RENETTA Number, [id number], Constant Indicator Start Date: 09/17/06 Status: Ordered [...] 3 Refills, Maintenance, 05/06/20 14:07:00 EDT, Powder, [facility], 1 puffs Inhalation 2 times a day,x90 days, 175, cm, 05/06/20 13:45:00 EDT, Height, 113, kg, 01/06/20 13:04:00 EST, Dry Weight Start Date: 05/06/20 Stop Date: 05/01/21 Status: Ordered Lotrisone 0.05%-1% cream 1 application, Topically, 2 times a day, # 45 Gm, 0 Refills, Maintenance, 01/29/20 11:18:00 EDT, Cream, [facility], 1 application Topically 2 times [...] capsule, 0 Refills, Maintenance, 12/27/20 11:35:00 EST, [facility], 176, cm, [...] 01/29/20 11:19:00 EDT, Route to Pharmacy Electronically, [facility], 172, cm, 01/29/20 11:00:00 EDT,Height, [...] with no history of insulin use(Confirmed) Active 59195; repeat 2022 2Colonoscopy 2013 polyp, repeat 2017 3EGD 2014 positive for gastroparesis. 4egd 2003 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 5upper endo 2014 6admitted [facility] 2009 7s/p left tkr 2011 Diagnosis Diagnosis Type Effective Dates Health Status Cl inical Service Informant Left lower quadrant abdominal pain Discharge Diagnosis 12/22/20 Vital Signs Most recent to oldest [Reference Range]: 1 Height 176 cm (12/22/20 10:41 AM) Weight 107.6 kg (12/22/20 10:41 AM) Pulse Rate [55-90 bpm] 90 bpm (12/22/20 10:41 AM) Body Mass Index [18.5-24.99] 34.74 *>HHI* (12/22/20 10:41 AM) Blood Pressure [90-138/55-84 mm Hg] 135/ 77mm Hg (12/22/20 10:41 AM) Temperature [96.8-100.4 DegF] 97.3 DegF (12/22/20 10:41 AM) Blood pressure sites Arm, right (12/22/20 10:41 AM) Temperature Route Temporal (12/22/20 10:41 AM) Social History Social History Type Response Smoking Status Former smoker; Other : quit 1989; entered on: 02/26/18 Sex
--- OUTSIDE RECORDS SUMMARY | 2024-10-12 12:34 | XMS_ITS | Continuity of Care Document ---
Author Organization [facility] Elier Zackery lt Address [address] [place] [address]- Care Team Providers Care Portuguese Tutor Name Role Phone Adeel Fountain MD Primary Care Physician [facility] 06[facility]20 - 07/06/20 [facility] Adult [address] [place] [address]- [facility] Attending Physician: Admtr, Ar8 Allergies, Adverse [...] Note: ADRY 4Admin Note: Biomedical Jon of [facility] 5Admin Note: BIOMEDICAL JON 6Admin Note: GIVEN [...] 02/26/18 9:54:20 EDT, Route to Pharmacy Electronically, [id number], [facility] Start Date: 02/26/18 [...] 0, 0, 09/17/06 2:07:12, Print RENETTA Number, [id number], Constant Indicator Start Date: 09/17/06 Status: Ordered [...] 3 Refills, Maintenance, 05/06/20 14:07:00 EDT, Powder, [facility], 1 puffs Inhalation 2 times a day,x90 days, 175, cm, 05/06/20 13:45:00 EDT, Height, 113, kg, 01/06/20 13:04:00 EST, Dry Weight Start Date: 05/06/20 Stop Date: 05/01/21 Status: Ordered Lotrisone 0.05%-1% cream 1 application, Topically, 2 times a day, # 45 Gm, 0 Refills, Maintenance, 01/29/20 11:18:00 EDT, Cream, [facility], 1 application Topically 2 times [...] Maintenance, 05/06/20 14:05:00EDT, Tablet, [facility], 175, cm, 05/06/20 13:45:00 EDT, Height, 113, kg, 01/06/20 13:04:00 EST, Dry Weight Start Date: 05/06/20 Stop Date: 05/01/21 Status: Ordered omeprazole 20 mg oral enteric coated capsule 1 capsule, By Mouth, Daily, # 90 capsule, 0 Refills, Maintenance, 03/25/20 14:11:00 EDT, [facility], 175, cm, 01/30/20 9:09:00 EDT, [...] 01/29/20 11:19:00 EDT, Route to Pharmacy Electronically, [facility], 172, cm, 01/29/20 [...] with no history of insulin use(Confirmed) Active 09048; repeat 2022 2Colonoscopy 2013 polyp, repeat 2017 3EGD 2014 positive for gastroparesis. 4egd 2003 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 5upper endo 2014 6admitted [facility] 2009 7s/p left tkr 2011 Social History Social History Type Response Smoking Status Former smoker; Other : quit 1989; entered on: 02/26/18 Sex
--- OUTSIDE RECORDS SUMMARY | 2024-10-12 12:34 | XMS_ITS | Continuity of Care Document ---
Author Organization [facility] Address [address] [place] [address]- Care Team Providers Care Coffee Weigher Name Role Phone Adeel Fountain MD Primary Care Physician Encounter [facility] Date(s): 08/21/21 - 09/20/[address] [address]- Allergies, Adverse Reactions, Alerts Substance Reaction Severity [...] 02/20/21 14:02:00 EDT, Route to Pharmacy Electronically, [id number], [facility], 176, cm, 02/20/21 [...] 0, 0, 09/17/06 2:07:12, Print RENETTA Number, [id number], Constant Indicator Start Date: 09/17/06 Status: Ordered [...] 3 Refills, Maintenance, 05/06/20 14:07:00 EDT, Powder, [facility], 1 puffs Inhalation [...] tablet, 3 Refills, Maintenance, 05/06/20 14:05:00EDT, Tablet, [facility], 175, cm, 05/06/20 [...] tablet, Refills 1, Route to Pharmacy Electronically, [facility], 176, cm, 07/24/21 7:50:00 EDT, Height, 110.6, kg, 10/27/20 13:48:00 EST, Dry Weight Start Date: 08/01/21 Status: Ordered omeprazole 20 mg oral enteric coated capsule 1 capsule, By Mouth, Daily, # 90 capsule, 0 Refills, Maintenance, 07/07/21 10:48:00 EDT, [facility], 176, cm, 06/24/21 14:26:00 EDT, [...] 2003 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 6upper endo 2014 7admitted [facility] 2009 8s/p left tkr 2011 Social History Social History Type Response Smoking Status Former smoker; Other : quit 1989; entered on: 02/26/18 Sex
--- OUTSIDE RECORDS SUMMARY | 2024-10-12 12:34 | XMS_ITS | Continuity of Care Document ---
Author Organization [facility] Zackery lt Address [address] [place] [address]- Care Team Providers Care Partnership Development Manager Name Role Phone Adeel Fountain MD Primary Care Physician [phone] [facility]23 - 06/20/23 [facility] Adult [address] [place] [address]- Attending Physician: Mau Mcgrath MD Allergies, Adverse Reactions, Alerts Substance Reaction Severity Status morphine 1 don't want it Active Percocet 5/325 2 makes me feel like pulling skin off Active 1pt feels like taking his skin off when given morphine 2pt feels like taking his skin off when on percocet Immunizations Given and Recorded Vaccine Date Status Refusal Reason [id number] 12y+ bivalent booster vax 12/13/22 Given pneumococcal [...] 12/21/21 11:37:00 EST, Route to Pharmacy Electronically, [id number], [facility] ([place]), 176, cm, 10/26/21 9:28:00 EST, H... Start [...] Maintenance, 04/28/2210:41:00 EDT, Route to Pharmacy Electronically, [facility], 175, cm, 02/11/22 2:26:00 [...] 0, 0, 09/17/06 2:07:12, Print RENETTA Number, [id number], Constant Indicator Start Date: 09/17/06 Status: Ordered Farxiga 5 mg oral tablet 1 tablet = 5 mg, By Mouth, Daily, # 90 tablet, 3 Refills, Maintenance, 12/13/22 14:14:00 EST, Tablet, [facility], Partial fill upon patient [...] Gm, 1 Refills, Maintenance, 02/16/23 10:19:00 EDT, [place], [facility], Partial fill upon patient [...] capsule, 1 Refills, Maintenance, 12/21/21 11:37:00 EST, [facility]), 176, cm, 10/26/21 9:28:00 EST, Height, 110.6, kg, 10/27/20 13:48:00 EST, Dry Weight Start Date: 12/21/21 Status: Ordered Metamucil Powder By Mouth, Daily at bedtime, 0 Refills, Maintenance, 05/08/13 11:48:10 EDT Start Date: 05/08/13 Status: Ordered montelukast 10 mg oral tablet 1, tablet, By Mouth, Daily, # 90 tablet, Refills 3, Tot. Refills 3, 03/10/23 10:02:00 EDT, Route toPharmacy Electronically, [facility], 175, cm, 02/16/23 9:32:00 EDT, Height, 108, kg, 02/11/22 2:26:00 EDT, Dry Weight Start Date: 03/10/23 Status: Ordered omeprazole 20 mg oral enteric coated capsule 1 capsule, By Mouth, Daily, # 90 capsule, 2 Refills, Maintenance, 05/23/23 11:48:00 EDT, [facility], 175, cm, 05/09/23 12:38:00 EDT, Height, 109.6, kg, 05/09/23 12:38:00 EDT, Dry Weight Start Date: 05/23/23 Status: Ordered Ozempic 2 mg/3 mL (0.25 mg or 0.5 mg dose) subcutaneous solution = 0.5 mg, Subcutaneous Injection, Every week, E11.9 diabetes type 2, # 3 mL, 5 Refills, Maintenance, 06/01/23 9:51:00 EDT, [facility], Partial fill upon [...] 11:36:00 EST, Tablet, [facility] ([place]), 1 tablet By Mouth Daily,x90 days, 176, [...] 2003 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 6upper endo 2014 7admitted [facility] 2009 8s/p left tkr 2011 Vital Signs Most recent to oldest [Reference Range]: 1 Height 175 cm (06/13/23 1:24 PM) Weight 105 kg (06/13/23 1:24 PM) Oxygen Saturation [94-100 %] 100 % (06/13/23 1:24 PM) Pulse Rate [55-90 bpm] 100 bpm *H* (06/13/23 1:24 PM) Body Mass Index [18.5-24.99 kg/m2] 34.29 kg/m2 *>HHI* (06/13/23 1:24 PM) Blood Pressure [90-138/55-84 mm Hg] 139/ 81mm Hg *H* (06/13/23 1:24 PM) Temperature [96.8-100.4 DegF] 98.2 DegF (06/13/23 1:24 PM) Mode of Delivery (Oxygen) Room air (06/13/23 1:24 PM) Blood pressure sites Arm, right (06/13/23 1:24 PM) Temperature Route Oral (06/13/23 1:24 PM) Weight Obtained Via Standing scale (06/13/23 1:24 PM) Social History Social History Type Response Smoking Status Former smoker, quit more than 30 days ago; Other: quit in 1989; entered on: 05/09/23 Sex Patient Care team information Care Team Personnel Name: Sujey Pereira RN Position: [facility] RN Member Role: Primary Care Nurse Name: Nickie Calvo RN Position: [facility] RN Member Role: Primary Care Nurse Name: Adeel Dominguez RN Position: [facility] RN Member Role: Primary Care Nurse Name: Tierra Meeks NP Position: Reference Physician Member Role: Primary Care Nurse Address: Address: [address] [place] [address]- [place] Name: Margo Wilkins NP Position: [facility] Outreach Member Role: Primary Care Nurse Address: Address: [address] [place] [address]- [place] Name: Adeel Fountain MD Position: [facility] Physician - Primary Care Member Role: PCP Address: Address: [address] [place] [address]- [place] Name: Mindy Santiago RN Position: [facility] RN Member Role: Primary Care Nurse Name: Ramón Olivo MD Position: [facility] Physician - Infectious Disease Member Role: Lifetime Consulting Physician Address: Address: [address] [place] [address] [place] [address]- [place] Care Team Related Persons Name: RICHARD REDDY Address: [address] [address]
--- OUTSIDE RECORDS SUMMARY | 2024-10-12 12:34 | XMS_ITS | Continuity of Care Document ---
Author Organization [facility] ter Address [address] [place] [address]- Care Team Providers Care Health Sciences Manager Name Role Phone Essie CHRISTINA, Adeel Nguyen Primary Care Physician [place] [facility] [place] - 02/11/[address] [address]- Discharge Disposition: A-D/C Home Attending Physician: Makayla Alvarado MD Admitting Physician: Bentley Velazquez MD Referring Physician: Not on Staff, Referring [...] Note: ADRY 4Admin Note: [facility] 5Admin Note: BIOMEDICAL JON 6Admin [...] 12/21/21 11:37:00 EST, Route to Pharmacy Electronically, [id number], [facility] ([place]), 176, cm, 10/26/21 9:28:00 EST, H... Start Date: 12/21/21 Status: Ordered CoQ10 = 300 mg, By Mouth, Daily, 0 Refills, Maintenance, 07/04/18 10:56:18 EDT Start Date: 07/04/18 Status: Ordered Crestor 5 mg oral tablet 1 tablet = 5 mg, By Mouth, Daily, # 90 tablet, 3 Refills, Maintenance, 12/21/21 11:37:00 EST, Tablet, [facility] ([place]), Partial fill upon patient request if the prescription is for aschedule II opioid drug., 176, cm, 10/26/21 9:28:00... Start Date: 12/21/21 Status: Ordered diltiazem 300 mg/24 hours oral capsule, extended release 300 mg, CD Capsule, By Mouth, 02/11/22 9:00:00 EDT Start Date: 02/11/22 Stop Date: 02/11/22 Status: Completed diltiazem 300 mg/24 hours oral capsule, extended release 300 mg, 1, capsule, By Mouth, Daily, # 90 capsule, Refills 3, Tot. Refills 3, Maintenance, 12/21/2210:37:00 EST, Route to Pharmacy Electronically, [facility]), 176, cm, 10/26/21 9:28:00 EST, Height, [...] 0, 0, 09/17/06 2:07:12, Print RENETTA Number, [id number], Constant Indicator Start Date: 09/17/06 Status: Ordered [...] 3 Refills, Maintenance, 12/21/21 11:36:00 EST, Powder, [facility] ([place]), 1 puffs Inhalation 2 times a day,x90 days, 176, cm, 10/26/21 9:28:00 EST, Height, 110.6, kg, 10/27/20 13:48:00 EST,... Start Date: 12/21/21 Stop Date: 12/16/22 Status: Ordered melatonin 10 mg oral capsule 1 capsule = 10 mg, By Mouth, Daily at bedtime, # 60 capsule, 1 Refills, Maintenance, 12/21/21 11:37:00 EST, [facility] ([place]), 176, cm, 10/26/21 9:28:00 [...] 1 Refills, Maintenance, 06/13/22 8:47:00 EDT, Tablet, [facility] ([place]), 176, cm, 10/26/21 9:28:00 EST, Height, 110.6, kg, 10/27/20 13:48:00 EST, Dry Weight Start Date: 06/13/22 Stop Date: 12/10/22 Status: Ordered montelukast 10 mg oral tablet 1, tablet, By Mouth, Daily, # 90 tablet, Refills 3, Tot. Refills 3, 12/21/21 11:37:00 EST, Route toPharmacy Electronically, [facility] ([place]), 176, cm, 10/26/21 9:28:00 [...] no history of insulin use(Confirmed) Active 1EGD 2020 [address]; repeat 2022 3Colonoscopy 2012 polyp, repeat 2017 4EGD 2014 positive for gastroparesis. 5egd 2003 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 6upper endo 2014 7admitted [facility] 2009 8s/p left tkr 2011 Results Orders for Microbiology Reports Name Date Blood Culture 02/10/22 Blood Culture #2 02/10/22 Microbiology Reports TEST:Blood Culture, Second Order STATUS:Unauthenticated BODY SITE: SOURCE:Blood COLLECTED DATE/TIME:02/10/22 4:11 PM Blood Culture, Second Order SPECIMEN DESCRIPTION : BLOOD L FOREARM SPECIAL REQUESTS : NONE CULTURE : NO GROWTH AFTER 24 HOURS REPORT STATUS : PRELIMINARY REPORT TEST:Blood Culture STATUS:Unauthenticated BODY SITE: SOURCE:Blood COLLECTED DATE/TIME:02/10/22 2:27 PM Blood Culture SPECIMEN DESCRIPTION : BLOOD SITE UNKNOWN SPECIAL REQUESTS : NONE CULTURE : NO GROWTH AFTER 24 HOURS REPORT STATUS : PRELIMINARY REPORT Radiology Reports * Exam Date Time Procedure Performing Provider Status 02/10/22 6:05 PM Chest 2 Views Frontal and Lat Kibe , M onica; Auth (Verified) Notes: (Chest 2 Views Frontal and Lat) Reason For Exam: Chest Pain;Other: RESULT: Chest 2 Views Frontal and Lat Chest 2 Views Frontal and Lat Hx of Present Illness: Pt reports headache for past couple days with dizziness and lightheadedness.pt reports feeling warm with hot cold flashes with periods of shaking. Pt deies any chest pain , c o shortness of breath w any exertion.; Reason: Other:; Chest Pain; Clinical Question(s): Other: COMPARISON: 01/11/2020 FINDINGS: LINES AND TUBES: None. LUNGS AND PLEURA: Clear lungs. Normal pulmonary vascularity. No pleural effusion. No pneumothorax. HEART, MEDIASTINUM AND JAIR: Heart is normal in size. Normal upper mediastinal and hilar contour. BONES AND SOFT TISSUES: Multiple anchors status post left shoulder surgery. IMPRESSION: No acute abnormality. WSN: [id number] Ordering Physician: Christie Lu Dictated By: Marcus Jackson MD Dictated Date/Time: 02/10/22 6:09 pm Reviewed By: Marcus Jackson MD Signed By: Marcus Jackson MD Signed Date/Time: 02/10/22 6:09 pm Transcribed By: SUE Transcribed Date/Time: 02/10/22 6:08 pm Vital Signs Most recent to oldest [Reference Range]: 1 2 3 Height 175 cm (02/11/22 2:26 AM) 175 cm (02/10/22 10:53 PM) 175 cm (02/10/22 10:23 PM) Weight 108 kg (02/11/22 2:26 AM) 108 kg (02/10/22 10:53 PM) 108 kg (02/10/22 10:23 PM) Oxygen Saturation [94-100 %] 97 % (02/11/22 2:00 PM) 97 % (02/11/22 12:38 PM) 97 % (02/11/22 7:21 AM) Pulse Rate [55-90 bpm] 89 bpm (02/11/22 2:00 PM) 94 bpm *H* (02/11/22 12:38 PM) 96 bpm *H* (02/11/22 10:31 AM) Body Mass Index [18.5-24.99] 35.27 *>HHI* (02/11/22 2:26 AM) 35.27 *>HHI* (02/10/22 10:53 PM) 35.27 *>HHI* (02/10/22 10:23 PM) Blood Pressure [90-138/55-84 mm Hg] 144/58mm Hg *H* (02/11/22 2:00 PM) 172/82mm Hg *H* (02/11/22 12:38 PM) 152/62mm Hg *H* (02/11/22 10:31 AM) Respiratory Rate [16-30 br/min] 18 br/min (02/11/22 2:00 PM) 18 br/min (02/11/22 12:38 PM) 18 br/min (02/11/22 7:21 AM) Temperature [96.8-100.4 DegF] 99.3 DegF (02/11/22 2:00 PM) 98.1 DegF (02/11/22 12:38 PM) 97.8 DegF (02/11/22 2:26 AM) Mode of Delivery (Oxygen) Room air (02/11/22 2:00 PM) Room air (02/11/22 12:38 PM) Room air (02/11/22 7:21 AM) Blood pressure sites Arm, left (02/11/22 2:00 PM) Arm, right (02/11/22 7:21 AM) Arm, right (02/11/22 6:04 AM) Temperature Route Oral (02/11/22 2:00 PM) Oral (02/11/22 12:38 PM) Oral (02/11/22 2:26 AM) Dry Weight 108 kg (02/11/22 2:26 AM) 108 kg (02/10/22 10:53 PM) 108 kg (02/10/22 10:23 PM) Social History Social History Type Response Smoking Status Former smoker; Other : quit 1989; entered on: 02/26/18 Sex
--- OUTSIDE RECORDS SUMMARY | 2024-10-12 12:34 | XMS_ITS | Continuity of Care Document ---
Author Organization [facility] Zackery lt Address [address] [place] [address]- Care Team Providers Care Branch Lending Officer Name Role Phone Adeel Fountain MD Primary Care Physician [facility] Date[facility]s): 01/22/22 - 05/22/22 [facility] Adult [address] [place] [address]- Attending Physician: Adeel Fountain MD Allergies, Adverse [...] DOSE 3Admin Note: ADRY 4Admin Note: [facility] 5Admin Note: BIOMEDICAL JON 6Admin Note: GIVEN [...] 12/21/21 11:37:00 EST, Route to Pharmacy Electronically, [id number], [facility] ([place]), 176, cm, 10/26/21 9:28:00 EST, H... Start Date: 12/21/21 Status: Ordered CoQ10 = 300 mg, By Mouth, Daily, 0 Refills, Maintenance, 07/04/18 10:56:18 EDT Start Date: 07/04/18 Status: Ordered Crestor 5 mg oral tablet 1 tablet = 5 mg, By Mouth, Daily, # 90 tablet, 3 Refills, Maintenance, 12/21/21 11:37:00 EST, Tablet, [facility] ([place]), Partial fill upon patient request if the prescription is for aschedule II opioid drug., 176, cm, 10/26/21 9:28:00... Start Date: 12/21/21 Status: Ordered diltiazem 300 mg/24 hours oral capsule, extended release 300 mg, 1, capsule, By Mouth, Daily, # 90 capsule, Refills 3, Tot. Refills 3, Maintenance, 04/28/2210:41:00 EDT, Route to Pharmacy Electronically, [facility], 175, cm, 02/11/22 2:26:00 [...] 0, 0, 09/17/06 2:07:12, Print RENETTA Number, [id number], Constant Indicator Start Date: 09/17/06 Status: Ordered [...] 11:36:00 EST, Powder, [facility] ([place]), 1 puffs Inhalation 2 times a day,x90 [...] 12/21/21 11:37:00 EST, [facility]), 176, cm, 10/26/21 9:28:00 EST, Height, 110.6, kg, 10/27/20 13:48:00 EST, Dry Weight Start Date: 12/21/21 Status: Ordered Metamucil Powder By Mouth, Daily at bedtime, 0 Refills, Maintenance, 05/08/13 11:48:10 EDT Start Date: 05/08/13 Status: Ordered metFORMIN 500 mg oral tablet 1 tablet = 500 mg, By Mouth, 2 times a day, # 180 tablet, 1 Refills, Maintenance, 06/13/22 8:47:00 EDT, Tablet, [facility] ([place]), 176, cm, 10/26/21 9:28:00 EST, Height, 110.6, kg, 10/27/20 13:48:00 EST, Dry Weight Start Date: 06/13/22 Stop Date: 12/10/22 Status: Ordered montelukast 10 mg oral tablet 1, tablet, By Mouth, Daily, # 90 tablet, Refills 3, Tot. Refills 3, 12/21/21 11:37:00 EST, Route toPharmacy Electronically, [facility] ([place]), 176, cm, 10/26/21 9:28:00 [...] endo 2014 7admitted [facility] 2009 8s/p left tkr 2011 Social History Social History Type Response Smoking Status Former smoker; Other : quit 1989; entered on: 02/26/18 Sex
--- OUTSIDE RECORDS SUMMARY | 2024-10-12 12:34 | XMS_ITS | Continuity of Care Document ---
Author Organization [facility] Address [address] [place] [address] [address] [place] [address]- Care Team Providers Care Pipelines Laborer Name Role Phone Adeel Fountain MD Primary Care Physician [phone] [facility] Date(s): 12/22/20 - 01/21/[address] [place] [address]- Attending Physician: Vibha Wallace Admitting Physician: AdmVibha fish Referring Physician: AdmtrVibha Allergies, Adverse Reactions, Alerts [...] 4Admin Note: [facility] 5Admin Note: BIOMEDICAL JON 6Admin Note: GIVEN [...] 02/26/18 9:54:20 EDT, Route to Pharmacy Electronically, [id number], [facility] Start Date: 02/26/18 Status: [...] 0, 0, 09/17/06 2:07:12, Print RENETTA Number, [phone], Constant Indicator Start Date: 09/17/06 Status: Ordered [...] 3 Refills, Maintenance, 05/06/20 14:07:00 EDT, Powder, [facility], 1 puffs Inhalation 2 times a day,x90 days, 175, cm, 05/06/20 13:45:00 EDT, Height, 113, kg, 01/06/20 13:04:00 EST, Dry Weight Start Date: 05/06/20 Stop Date: 05/01/21 Status: Ordered Lotrisone 0.05%-1% cream 1 application, Topically, 2 times a day, # 45 Gm, 0 Refills, Maintenance, 01/29/20 11:18:00 EDT, Cream, [facility], 1 application Topically 2 times [...] tablet, 3 Refills, Maintenance, 05/06/20 14:05:00EDT, Tablet, [facility], 175, cm, 05/06/20 13:45:00 EDT, Height, 113, kg, 01/06/20 13:04:00 EST, Dry Weight Start Date: 05/06/20 Stop Date: 05/01/21 Status: Ordered omeprazole 20 mg oral enteric coated capsule 1 capsule, By Mouth, Daily, # 90 capsule, 0 Refills, Maintenance, 12/27/20 11:35:00 EST, [facility], 176, cm, 12/22/20 10:41:00 [...] 01/29/20 11:19:00 EDT, Route to Pharmacy Electronically, [facility], 172, cm, 01/29/20 11:00:00 [...] with no history of insulin use(Confirmed) Active 27[address]; repeat 2022 2Colonoscopy 2013 polyp, repeat 2018 3EGD 2014 positive for gastroparesis. 4egd 2003 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 5upper endo 2014 6admitted [facility] 2009 7s/p left tkr 2011 Social History Social History Type Response Smoking Status Former smoker; Other : quit 1989; entered on: 02/26/18 Sex
--- OUTSIDE RECORDS SUMMARY | 2024-10-12 12:34 | XMS_ITS | Continuity of Care Document ---
Author Organization [facility] Zackery lt Address [address] [place] [address]- Care Team Providers Care Sheet Metal Journeyman Name Role Phone Adeel Fountain MD Primary Care Physician [phone] Encounter [facility] Date(s): 07/03/20 - 08/02/20 [facility] Adult [address] [place] [address]- [facility] Allergies, Adverse Reactions, Alerts Substance [...] 3Admin Note: ADRY 4Admin Note: Biomedical Jon [facility] 5Admin Note: BIOMEDICAL JON 6Admin Note: GIVEN [...] 02/26/18 9:54:20 EDT, Route to Pharmacy Electronically, [id number], [facility] Start Date: 02/26/18 [...] 0, 0, 09/17/06 2:07:12, Print RENETTA Number, [phone], Constant Indicator Start Date: 09/17/06 Status: Ordered [...] 3 Refills, Maintenance, 05/06/20 14:07:00 EDT, Powder, [facility], 1 puffs Inhalation 2 times a day,x90 days, 175, cm, 05/06/20 13:45:00 EDT, Height, 113, kg, 01/06/20 13:04:00 EST, Dry Weight Start Date: 05/06/20 Stop Date: 05/01/21 Status: Ordered Lotrisone 0.05%-1% cream 1 application, Topically, 2 times a day, # 45 Gm, 0 Refills, Maintenance, 01/29/20 11:18:00 EDT, Cream, [facility], 1 application Topically 2 times [...] tablet, 3 Refills, Maintenance, 05/06/20 14:05:00EDT, Tablet, [facility], 175, cm, 05/06/20 13:45:00 EDT, Height, 113, kg, 01/06/20 13:04:00 EST, Dry Weight Start Date: 05/06/20 Stop Date: 05/01/21 Status: Ordered omeprazole 20 mg oral enteric coated capsule 1 capsule, By Mouth, Daily, # 90 capsule, 0 Refills, Maintenance, 03/25/20 14:11:00 EDT, [facility], 175, cm, 01/30/20 9:09:00 [...] 01/29/20 11:19:00 EDT, Route to Pharmacy Electronically, [facility], 172, cm, 01/29/20 [...] with no history of insulin use(Confirmed) Active 13783; repeat 2022 2Colonoscopy 2013 polyp, repeat 2017 3EGD 2014 positive for gastroparesis. 4egd 2003 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 5upper endo 2014 6admitted [facility] 2009 7s/p left tkr 2011 Social History Social History Type Response Smoking Status Former smoker; Other : quit 1989; entered on: 02/26/18 Sex
--- OUTSIDE RECORDS SUMMARY | 2024-10-12 12:34 | XMS_ITS | Continuity of Care Document ---
Author Organization [facility] Elier Zackery lt Address [address] [place] [address]- Care Team Providers Care Dispatch Manager Name Role Phone Adeel Fountain MD Primary Care Physician [phone] Encounter [facility] Date(s): 12/13/22 - 12/20/22 [facility] Adult [address] [place] [address]- Attending Physician: Adeel Fountain MD Allergies, Adverse Reactions, Alerts Substance Reaction Severity Status Percocet 5/325 1 makes me feel like pulling skin off Active morphine 2 don't want it Active 1pt feels like taking his skin off when on percocet 2pt feels like taking his skin off when given morphine Immunizations Given and Recorded Vaccine Date Status Refusal Reason [id number] 12y+ bivalent booster vax 12/13/22 Given pneumococcal [...] 12/21/21 11:37:00 EST, Route to Pharmacy Electronically, [id number], [facility]), 176, cm, 10/26/21 9:28:00 EST, H... Start Date: 12/21/21 Status: Ordered CoQ10 = 300 mg, By Mouth, Daily, 0 Refills, Maintenance, 07/04/18 10:56:18 EDT Start Date: 07/04/18 Status: Ordered Crestor 5 mg oral tablet 1 tablet = 5 mg, By Mouth, Daily, # 90 tablet, 3 Refills, Maintenance, 12/21/21 11:37:00 EST, Tablet, [facility] ([place]), Partial fill upon patient request if the prescription is for aschedule II opioid drug., 176, cm, 10/26/21 9:28:00... Start Date: 12/21/21 Status: Ordered diltiazem 300 mg/24 hours oral capsule, extended release 300 mg, 1, capsule, By Mouth, Daily, # 90 capsule, Refills 3, Tot. Refills 3, Maintenance, 04/28/2210:41:00 EDT, Route to Pharmacy Electronically, [facility], 175, cm, 02/11/22 2:26:00 [...] 0, 0, 09/17/06 2:07:12, Print RENETTA Number, [id number], Constant Indicator Start Date: 09/17/06 Status: Ordered Farxiga 5 mg oral tablet 1 tablet = 5 mg, By Mouth, Daily, # 90 tablet, 3 Refills, Maintenance, 12/13/22 14:14:00 EST, Tablet, [facility], Partial fill upon [...] 11:36:00 EST, Powder, [facility] ([place]), 1 puffs Inhalation 2 times a day,x90 [...] capsule, 1 Refills, Maintenance, 12/21/21 11:37:00 EST, [facility]), 176, cm, 10/26/21 9:28:00 EST, Height, 110.6, kg, 10/27/20 13:48:00 EST, Dry Weight Start Date: 12/21/21 Status: Ordered Metamucil Powder By Mouth, Daily at bedtime, 0 Refills, Maintenance, 05/08/13 11:48:10 EDT Start Date: 05/08/13 Status: Ordered montelukast 10 mg oral tablet 1, tablet, By Mouth, Daily, # 90 tablet, Refills 3, Tot. Refills 3, 12/21/21 11:37:00 EST, Route toPharmacy Electronically, [email or web address] ([place]), 176, cm, 10/26/21 9:28:00 EST, Height, 110.6, [...] mL, 3 Refills, Maintenance, 12/15/22 7:55:00 EST, [facility], Partial fill upon [...] 11:36:00 EST, Tablet, [facility] ([place]), 1 tablet By Mouth Daily,x90 days, 176, [...] barretts 6upper endo 2014 7admitted [facility] 2009 8s/p left tkr 2011 Vital Signs Most recent to oldest [Reference Range]: 1 Height 175 cm (12/13/22 1:50 PM) Weight 109.4 kg (12/13/22 1:50 PM) Oxygen Saturation [94-100 %] 98 % (12/13/22 1:50 PM) Pulse Rate [55-90 bpm] 79 bpm (12/13/22 1:50 PM) Body Mass Index [18.5-24.99 kg/m2] 35.72 kg/m2 *>HHI* (12/13/22 1:50 PM) Blood Pressure [90-138/55-84 mm Hg] 132/ 64mm Hg (12/13/22 1:50 PM) Mode of Delivery (Oxygen) Room air (12/13/22 1:50 PM) Blood pressure sites Arm, left (12/13/22 1:50 PM) Weight Obtained Via Standing scale (12/13/22 1:50 PM) Social History Social History Type Response Smoking Status Former smoker; Other : quit 1989; entered on: 02/26/18 Sex Note * Latanya De Luna: PERFORM, SIGN, VERIFY Event Display: Patient Education/Instruction Authored Date: [id number] [facility] So Elier Watkins Clinical Summary Name BONIFACIO REDDY Age 77 Years 1945 PCP Adeel Fountain MD PCP Visit Date 12/13/2022 13:10:00 Additional Instructions: Scheduled Appointments?? Future Appointments ?No Future Appointments Scheduled Follow-Up Instructions ?? With: Address: When: Adeel Fountain MD In 3 months Diagnosis Type 2 diabetes mellitus without complications; Morbid (severe) obesity due to excess calories; Other amnesia; Polyneuropathy, unspecified; Sciatica, left side; Atherosclerotic heart disease of [place] coronary artery without angina pectoris; Gastro-esophageal reflux disease without esophagitis Medications: Please continue your medications until treatment is completed or stopped by your provider. Discuss any questions related to medications with your provider. New Medications [facility], [address] [place] [id number], [phone] dapagliflozin (Farxiga 5 mg oral tablet) 1 [...] tablet) 1 tab(s) Oral Daily. Next Dose: Diltiazem (diltiazem 300 mg/24 hours [...] once a day. Refills: 11. Next Dose: Durable Medical Equipment (One Touch Delica Lancets) 1 box = 100 lancets dm2 e11.9 test blood sugar twice a day. Refills: 5. Next Dose: Durable Medical Equipment (One Touch Ultra 2 Glucose Meter) dm 2 e11.9 test blood sugar twice a day. Refills: 0. Next Dose: Finasteride (finasteride 5 mg oral tablet) 1 tab(s) Oral Daily. Next Dose: Flax (Flax Seed Oil) 1 tab Oral Daily. Next Dose: Fluticasone (Flovent Diskus 100 mcg/inh inhalation powder) 1 puff(s) Inhalation twice a day for 90 Days. Refills: 3. Next Dose: Hydrochlorothiazide-Lisinopril (Zestoretic 25 mg-20 mg oral tablet) 1 tab(s) Oral Daily for 90 Days. Refills: 3. Next Dose: Melatonin (melatonin 10 mg oral capsule) 1 capsule Oral Daily at Bedtime. Refills: 1. Next Dose: Miscellaneous Rx (One Touch Ultra Blue Test Strips) ICD-10 E11.9 USE TO CHECK BLOOD SUGARS TWICE A DAY. Refills: 11. Next Dose: Miscellaneous Rx (OneTouch Ultra Blue In Vitro Strip) USE STRIP TO CHECK GLUCOSE TWICE DAILY. Refills: 0. Next Dose: Miscellaneous Rx (Spine and Sports) Eval and treata 20 visits. Refills: 0. Next Dose: Montelukast (montelukast 10 mg oral tablet) 1 tab(s) Oral Daily. Refills: 3. Next Dose: [place]-3 Polyunsaturated Fatty Acids (Fish Oil) 1,000 Milligram Oral Daily. Next Dose: Omeprazole (omeprazole 20 mg oral enteric coated capsule) 1 capsule Oral Daily. Refills: 3. Next Dose: Psyllium (Metamucil Powder) Oral Daily at Bedtime. Next Dose: Pt.'s Own Meds (Patient's Own Meds) artichoke extract 1 tab daily. Next Dose: Rosuvastatin (Crestor 5 mg oral tablet) 1 tab(s) Oral Daily. Refills: 3. Next Dose: Testosterone (testosterone 20.25 mg/1.25 g (1.62%) transdermal gel) 1 pack/packet Topically Daily in the morning. apply to clean, dry, intact skin. Next Dose: Ubiquinone (CoQ10) 300 Milligram Oral Daily. Next Dose: No Longer Take the Following Medications Azithromycin (azithromycin 250 mg oral tablet) Take 2 tablets on day 1 and 1 tablet daily for next 4 days. Refills: 0. Baclofen (baclofen 10 mg oral tablet) 1 tab(s) Oral Daily at Bedtime for 14 Days. Refills: 0. Metformin (metFORMIN 500 mg oral tablet) 1 tab(s) Oral twice a day for 90 Days. Refills: 1. Allergy Info:?? Percocet ; morphine Medications Given This Visit Medication Dose Route [id number] 12y+ bivalent booster vax ([place] COVID-19 (12y+) Bivalent Booster vacc) 0.3 mL Intramuscular Future Orders ?Potassium Plasma? Order Date:12/13/22?- Complete on or after?12/13/22 ?Vitamin B12 Level? Order Date:12/13/22?- Complete on or after?12/13/22 ?Thyroid Panel? Order Date:12/13/22?- Complete on or after?12/13/22 ?TRACEY Screen? Order Date:12/13/22?- Complete on or after?12/13/22 ?Syphilis Testing formerly ordered as RPR? Order Date:12/13/22?- Complete on or after?12/13/22 ?Lyme Disease Ab Screen? Order Date:12/13/22?- Complete on or after?12/13/22 ?Sedimentation Rate? Order Date:12/13/22?- Complete on or after?12/13/22 ?Protein Electrophoresis? Order Date:12/13/22?- Complete on or after?12/13/22 ?Folate Level? Order Date:12/13/22?- Complete on or after?12/13/22 ?CT Head/Brain W/O Contrast? Order Date:12/13/22?- Complete on or after?12/13/22 ?Renal Panel? Order Date:01/24/23?- Complete by?01/31/23 ?Hemoglobin A1C (Monitoring)? Order Date:03/13/23?- Complete by?04/03/23 ?Lipid Panel? Order Date:03/13/23?- Complete by?04/03/23 ?Comprehensive Metabolic Panel? Order Date:03/13/23?- Complete by?04/03/23 ?Microalbumin Urine? Order Date:03/13/23?- Complete by?04/03/23 Vital Signs Height 175 cm Weight 109.4 kg BMI 35.72 kg/m2 Blood Pressure 132 mm Hg/64 mm Hg Temperature Pulse Rate 79 bpm Respiratory Rate 02 Sat Mode of Delivery 98 %/Room air You can now view a summary of your hospital visit from the comfort of your home through a free online portal called [employer]. [employer] is a website that allows you to securely view your medical information including discharge summary, medications and follow-up visits. ??You can alsosend a secure electronic message to your doctor???s office to request appointments, renew medications or just ask a question. You can enroll at [email or web address] or register during your next office visit. [...] primary care provider, you may find a [facility] provider by calling [facility] [employer] at [phone]. For information about the plan of care including goals and instructions for your diagnosis, please see the patient education orders section of this document. Patient Education Materials?? The content of this educational material or handout may have been modified, supplemented, or adapted from its original content and format to support your individualized medical care. Additional Provider Instructions: Your diabetes is out of control. I would like you to stop taking your metformin as it is likely causing your diarrhea. We are going to start you on 2 new medications. I would like you to start on Farxiga 5 mg daily along with Ozempic injections weekly. My nurse is going to show you how to give yourself Ozempic injections. Please check your blood sugars twice daily and speak with Yamilet regularly about your medications. You need to have blood work checked in 6 weeks to make sure your kidney function is okay with the new medications. In the long run the new medication should actually protect your kidneys but I need to check your blood work in 6 weeks to make sure that the new medication is not adversely affecting your kidneys. I am going to see you back in follow-up in 3 months. Please have blood work checked prior to your appointment with me. Your memory has gotten somewhat worse. I am going to order a head CT as you have a history of head trauma. I am also going to do some blood work today to explore reasons for your memory worsening like vitamin deficiencies or Lyme disease. I will see you back in 3 months and we will go over how you are doing. Patient Care team information Care Team Personnel Name: Sujey Pereira RN Position: [facility] RN Member Role: Primary Care Nurse Name: Nickie Calvo RN Position: [facility] SN RN Member Role: Primary Care Nurse Name: Adeel Dominguez RN Position: [facility] RN Member Role: Primary Care Nurse Name: Tierra Meeks NP Position: [facility] PCO Associate Professional Member Role: Primary Care Nurse Name: Adeel Fountain MD Position: [facility] Primary Care Physician Member Role: PCP Address: Address: [address] [place] [address]- [place] Name: Mindy Santiago RN Position: [facility] RN Member Role: Primary Care Nurse Name: Ramón Olivo MD Position: [facility] Infectious Disease MD Member Role: Lifetime Consulting Physician Address: Address: [address] [place] [address] [place] [address]- Care Team Related Persons Name: RICHARD REDDY Address: home [address] [place] [id number]
--- OUTSIDE RECORDS SUMMARY | 2024-10-12 12:34 | XMS_ITS | Continuity of Care Document ---
Author Organization [facility] Zackery lt Address [address] [place] [address]- Care Team Providers Care Middle School Principal Name Role Phone Adeel Fountain MD Primary Care Physician Encounter [facility] Date(s): 06/19/24 - 07/19/24 [facility] Adult [address] [place] [address]- Allergies, Adverse Reactions, Alerts Substance Reaction Severity [...] RSV vaccine preF3, recombinant 10/05/23 Recorded SARS-CoV-2(COVID-19)mRNA-LNP vac([id number]) 09/22/23 Recorded influenza virus vaccine, inactivated 09/15/23 Ogyo rded influenza virus vaccine, inactivated 08/06/22 Goyo [...] influenza virus vaccine, inactivated 08/04/13 Goyo rded [id number] 12y+ bivalent booster vax 12/13/22 Given pneumococcal [...] Note: ADRY 4Admin Note: Biomedical Jon [facility] 5Admin Note: Busbud JON 6Admin Note: GIVEN BY NATALIE 7Admin [...] 12/21/21 11:37:00 EST, Route to Pharmacy Electronically, [id number], [facility]), 176, cm, 10/26/21 9:28:00 EST, H... Start Date: 12/21/21 Status: Ordered cetirizine 10 mg oral tablet 1 tablet, By Mouth, Daily, # 90 tablet, 3 Refills, Maintenance, 07/03/24 15:50:00 EDT, [facility], 175, cm, 03/05/24 14:58:00 EDT, Height, 109.6, kg, 05/09/23 12:38:00 EDT, Dry Weight Start Date: 07/03/24 Status: Ordered Crestor 5 mg oral tablet 1 tablet = 5 mg, By Mouth, Daily, # 90 tablet, 1 Refills, Maintenance, 03/16/24 16:26:00 EDT, Tablet, [facility] # [...] Maintenance, 07/26/2311:47:00 EDT, Route to Pharmacy Electronically, [facility], 175, cm, [...] 0, 0, 09/17/06 2:07:12, Print RENETTA Number, [id number], Constant Indicator Start Date: 09/17/06 Status: Ordered [...] Gm, 1 Refills, Maintenance, 02/16/23 10:19:00 EDT, [place], [facility], Partial fill upon [...] 06/19/24 16:54:00 EDT, Route to Pharmacy Electronically, [facility], Partial fill upon patient requestif the prescription is for a schedule II opioid geovanna... Start Date: 06/19/24 Status: Ordered melatonin 10 mg oral capsule 1 capsule = 10 mg, By Mouth, Daily at bedtime, # 60 capsule, 1 Refills, Maintenance, 12/21/21 11:37:00 EST, [facility]), 176, cm, 10/26/21 9:28:00 EST, Height, 110.6, kg, 10/27/20 13:48:00 EST, Dry Weight Start Date: 12/21/21 Status: Ordered Metamucil Powder By Mouth, Daily at bedtime, 0 Refills, Maintenance, 05/08/13 11:48:10 EDT Start Date: 05/08/13 Status: Ordered montelukast 10 mg oral tablet 1, tablet, By Mouth, Daily, # 90 tablet, Refills 1, Maintenance, 01/14/24 12:04:00 EST, Route to Pharmacy Electronically, [facility], 175, cm, 12/16/23 13:50:00 EST, Height, 109.6, kg, 05/09/23 12:38:00 EDT, Dry Weight Start Date: 01/14/24 Status: Ordered omeprazole 20 mg oral enteric coated capsule 1 capsule, By Mouth, Daily, # 90 capsule, 1 Refills, Maintenance, 03/09/24 13:03:00 EDT, [facility], 175, cm, 03/05/24 14:58:00 EDT, Height, 109.6, kg, 05/09/23 12:38:00 EDT, Dry Weight Start Date: 03/09/24 Status: Ordered Ozempic 2 mg/3 mL (0.25 mg or 0.5 mg dose) subcutaneous solution See Instructions, INJECT 0.5MG UNDER THE SKIN ONCE WEEKLY, # 3 mL, 12 Refills, Maintenance, 01/16/24 15:35:00 EST, [facility], 175, cm, 12/16/23 [...] 3 Refills, Maintenance, 04/12/23 16:08:00 EDT, Powder, [facility], Partial fill upon patient [...] 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 6upper endo 2014 7admitted [facility] 2009 8s/p left tkr 2011 Social History Social History Type Response Smoking Status Former smoker, quit more than 30 days ago; Other: quit in 1989; entered on: 05/09/23 Sex Patient Care team information Care Team Personnel Name: Sujey Pereira RN Position: [facility] RN Member Role: Primary Care Nurse Name: Nickie Calvo RN Position: [facility] RN Member Role: Primary Care Nurse Name: Adeel Dominguez RN Position: [facility] RN Member Role: Primary Care Nurse Name: Tierra Meeks NP Position: Reference Physician Member Role: Primary Care Nurse Address: Address: [address] [place] [address]- [place] Name: Margo Wilkins NP Position: [facility] Outreach Member Role: Primary Care Nurse Address: Address: [address] [place] [address]- [place] Name: Adeel Fountain MD Position: [facility] Physician - Primary Care Member Role: PCP Address: Address: [address] [place] [address]- [place] Name: Mindy Santiago RN Position: [facility] RN Member Role: Primary Care Nurse Name: Ramón Olivo MD Position: [facility] Physician - Infectious Disease Member Role: Lifetime Consulting Physician Address: Address: [address] [place] [address] [place] [address]- Care Team Related Persons Name: RICHARD REDDY Address: [address] [address]
--- OUTSIDE RECORDS SUMMARY | 2024-10-12 12:35 | XMS_ITS | Continuity of Care Document ---
Author Organization [facility] Zackery lt Address [address] [place] [address]- Care Team Providers Care Wad Printing Machine Operator Name Role Phone Adeel Fountain MD Primary Care Physician Encounter [facility] Date(s): 07/16/21 - 08/15/21 [facility] Adult [address] [place] [address]- Allergies, Adverse Reactions, Alerts Substance Reaction Severity [...] Note: ADRY 4Admin Note: Biomedical Jon [facility] 5Admin Note: BIOMEDICAL JON 6Admin Note: GIVEN [...] 02/20/21 14:02:00 EDT, Route to Pharmacy Electronically, [id number], [facility], 176, cm, 02/20/21 13:51:00 [...] 0, 0, 09/17/06 2:07:12, Print RENETTA Number, [id number], Constant Indicator Start Date: 09/17/06 Status: Ordered [...] 3 Refills, Maintenance, 05/06/20 14:07:00 EDT, Powder, [facility], 1 puffs Inhalation 2 [...] tablet, 3 Refills, Maintenance, 05/06/20 14:05:00EDT, Tablet, [facility], 175, cm, 05/06/20 13:45:00 [...] tablet, Refills 1, Route to Pharmacy Electronically, [facility], 176, cm, 07/24/21 7:50:00 EDT, Height, 110.6, kg, 10/27/20 13:48:00 EST, Dry Weight Start Date: 08/01/21 Status: Ordered omeprazole 20 mg oral enteric coated capsule 1 capsule, By Mouth, Daily, # 90 capsule, 0 Refills, Maintenance, 07/07/21 10:48:00 EDT, [facility], 176, cm, 06/24/21 14:26:00 [...] barretts 6upper endo 2014 7admitted [facility] 2009 8s/p left tkr 2011 Social History Social History Type Response Smoking Status Former smoker; Other : quit 1989; entered on: 02/26/18 Sex
--- OUTSIDE RECORDS SUMMARY | 2024-10-12 12:35 | XMS_ITS | Continuity of Care Document ---
Author Organization [facility] Zackery lt Address [address] [place] [address]- Care Team Providers Care Juvenile Corrections Officer Name Role Phone Adeel Fountain MD Primary Care Physician Encounter [facility] Date(s): 06/15/21 - 06/22/21 [facility] Adult [address] [place] [address]- Attending Physician: Devendra Almanzar MD Referring Physician: Jaquan LUCAS, Pauline Terry Allergies, Adverse Reactions, Alerts Substance Reaction Severity [...] 02/20/21 14:02:00 EDT, Route to Pharmacy Electronically, [id number], [facility], 176, cm, 02/20/21 [...] 0, 0, 09/17/06 2:07:12, Print RENETTA Number, [id number], Constant Indicator Start Date: 09/17/06 Status: Ordered [...] 3 Refills, Maintenance, 05/06/20 14:07:00 EDT, Powder, [facility], 1 puffs Inhalation 2 times a day,x90 days, 175, cm, 05/06/20 13:45:00 EDT, Height, 113, kg, 01/06/20 13:04:00 EST, Dry Weight Start Date: 05/06/20 Stop Date: 05/01/21 Status: Ordered levoFLOXacin 500 mg oral tablet 1 tablet = 500 mg, By Mouth, Every 24 hours, for 21 days, # 21 tablet, 0 Refills, Acute 07/07/21 15:10:00 EDT, 06/16/21 15:10:00 EDT, Tablet, [facility], Partial fill upon patient request if the prescription is for a schedule II opioid drug... Start Date: 06/16/21 Stop Date: 07/07/21 Status: Ordered melatonin 10 mg oral capsule [...] tablet, 3 Refills, Maintenance, 05/06/20 14:05:00EDT, Tablet, [facility], 175, cm, 05/06/20 [...] capsule, 0 Refills, Maintenance, 04/01/21 16:20:00 EDT, [facility], 176, cm, 03/20/21 [...] 02/12/21 8:21:00 EDT, Route to Pharmacy Electronically, [facility], 176, cm, 12/22/20 [...] with no history of insulin use(Confirmed) Active 75391; repeat 2022 2Colonoscopy 2013 polyp, repeat 2018 3EGD 2014 positive for gastroparesis. 4egd 2003 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 5[facility] 2011 Vital Signs Most recent to oldest [Reference Range]: 1 Height 176 cm (06/15/21 6:49 AM) Weight 109.2 kg (06/15/21 6:49 AM) Oxygen Saturation [94-100 %] 98 % (06/15/21 6:49 AM) Pulse Rate [55-90 bpm] 62 bpm (06/15/21 6:49 AM) Body Mass Index [18.5-24.99] 35.25 *>HHI* (06/15/21 6:49 AM) Blood Pressure [90-138/55-84 mm Hg] 134/ 73mm Hg (06/15/21 6:49 AM) Temperature [96.8-100.4 DegF] 97.4 DegF (06/15/21 6:49 AM) Blood pressure sites Arm, left (06/15/21 6:49 AM) Temperature Route Oral (06/15/21 6:49 AM) Social History Social History Type Response Smoking Status Former smoker; Other : quit 1989; entered on: 02/26/18 Sex
--- OUTSIDE RECORDS SUMMARY | 2024-10-12 12:35 | XMS_ITS | Continuity of Care Document ---
Author Organization [facility] Zackery lt Address [address] [place] [address]- Care Team Providers Care Oceanographer Assistant Name Role Phone Adeel Fountain MD Primary Care Physician [phone] Encounter [facility] Date(s): 10/27/20 - 11/26/20 [facility] Adult [address] [place] [address]- Allergies, Adverse Reactions, Alerts Substance Reaction Severity [...] ADRY 4Admin Note: Biomedical Jon of [facility] 5Admin Note: BIOMEDICAL JON [...] 02/26/18 9:54:20 EDT, Route to Pharmacy Electronically, [id number], [facility] Start Date: 02/26/18 Status: [...] 0, 0, 09/17/06 2:07:12, Print RENETTA Number, [id number], Constant Indicator Start Date: 09/17/06 Status: Ordered [...] 3 Refills, Maintenance, 05/06/20 14:07:00 EDT, Powder, [facility], 1 puffs Inhalation 2 times a day,x90 days, 175, cm, 05/06/20 13:45:00 EDT, Height, 113, kg, 01/06/20 13:04:00 EST, Dry Weight Start Date: 05/06/20 Stop Date: 05/01/21 Status: Ordered Lotrisone 0.05%-1% cream 1 application, Topically, 2 times a day, # 45 Gm, 0 Refills, Maintenance, 01/29/20 11:18:00 EDT, Cream, [facility], 1 application Topically 2 times [...] tablet, 3 Refills, Maintenance, 05/06/20 14:05:00EDT, Tablet, [facility], 175, cm, 05/06/20 13:45:00 EDT, Height, 113, kg, 01/06/20 13:04:00 EST, Dry Weight Start Date: 05/06/20 Stop Date: 05/01/21 Status: Ordered omeprazole 20 mg oral enteric coated capsule 1 capsule, By Mouth, Daily, # 90 capsule, 0 Refills, Maintenance, 09/15/20 14:15:00 EDT, [facility], 176, cm, 07/30/20 13:27:00 [...] 01/29/20 11:19:00 EDT, Route to Pharmacy Electronically, [facility], 172, cm, 01/29/20 11:00:00 [...] with no history of insulin use(Confirmed) Active 11067; repeat 2022 2Colonoscopy 2013 polyp, repeat 2017 3EGD 2014 positive for gastroparesis. 4egd 2003 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 [facility]p [facility] 2011 Social History Social History Type Response Smoking Status Former smoker; Other : quit 1989; entered on: 02/26/18 Sex
--- OUTSIDE RECORDS SUMMARY | 2024-10-12 12:35 | XMS_ITS | Continuity of Care Document ---
Author Organization [facility] ter Address [address] [place] [address]- Care Team Providers Care Loop Sewer Name Role Phone Adeel Fountain MD Primary Care Physician [facility]counter [facility] Date(s): 12/14/23 - 12/14/[address] [address] Attending Physician: Adeel Fountain MD Allergies, Adverse Reactions, Alerts Substance Reaction Severity Status Percocet 5/325 1 makes me feel like pulling skin off Active morphine 2 don't want it Active 1pt feels like taking his skin off when on percocet 2pt feels like taking his skin off when given morphine Immunizations Given and Recorded Vaccine Date Status Refusal Reason SARS-CoV-2(COVID-19)mRNA-LNP vac([id number]) 09/22/23 Recorded influenza virus vaccine, inactivated 09/15/23 [...] influenza virus vaccine, inactivated 08/04/13 Goyo rded [id number] 12y+ bivalent booster vax 12/13/22 Given pneumococcal [...] [facility] 5Admin Note: [employer] JON 6Admin Note: GIVEN BY NATALIE 7Admin [...] 12/21/21 11:37:00 EST, Route to Pharmacy Electronically, [id number], [facility]), 176, cm, 10/26/21 9:28:00 EST, H... Start Date: 12/21/21 Status: Ordered cetirizine 10 mg oral tablet 1 tablet = 10 mg, By Mouth, Daily, # 90 tablet, 3 Refills, Maintenance, 04/20/23 13:44:00 EDT, Tablet, [facility], Partial fill upon patient request if the prescription is for a schedule II opioid drug., 175, cm, 04/12/23 15:36:00 EDT, Height... Start Date: 04/20/23 Status: Ordered Crestor 5 mg oral tablet 1 tablet = 5 mg, By Mouth, Daily, # 90 tablet, 2 Refills, Maintenance, 06/01/23 9:50:00 EDT, Tablet, [facility] # [facility], Partial fill upon patient request if the prescription is for a schedule II opioid drug., 175, cm, 05/09/23 12:38:00 EDT, Height,... Start Date: 06/01/23 Status: Ordered diltiazem 300 mg/24 hours oral capsule, extended release 300 mg, 1, capsule, By Mouth, Daily, # 90 capsule, Refills 3, Tot. Refills 3, Maintenance, 07/26/2311:47:00 EDT, Route to Pharmacy Electronically, [facility], 175, cm, 06/16/23 9:25:00 [...] 0, 0, 09/17/06 2:07:12, Print RENETTA Number, [id number], Constant Indicator Start Date: 09/17/06 Status: Ordered [...] Gm, 1 Refills, Maintenance, 02/16/23 10:19:00 EDT, [place], [facility], Partial fill upon [...] 12/21/21 11:37:00 EST, [facility] ([place]), 176, cm, 10/26/21 9:28:00 EST, Height, 110.6, kg, 10/27/20 13:48:00 EST, Dry Weight Start Date: 12/21/21 Status: Ordered Metamucil Powder By Mouth, Daily at bedtime, 0 Refills, Maintenance, 05/08/13 11:48:10 EDT Start Date: 05/08/13 Status: Ordered metFORMIN 1000 mg oral tablet 1 tablet = 1,000 mg, By Mouth, 2 times a day, # 180 tablet, 3 Refills, Maintenance, 09/28/23 9:52:00 EST, Tablet, [facility], Partial fill upon patient request if the prescription is for a schedule II opioid drug., 175, cm, 09/28/23 9:40:00 E... Start Date: 09/28/23 Status: Ordered montelukast 10 mg oral tablet 1, tablet, By Mouth, Daily, # 90 tablet, Refills 1, Tot. Refills 1, 07/04/23 9:32:00 EDT, Route to Pharmacy Electronically, [facility], 175, cm, 06/16/23 9:25:00 EDT, Height, 109.6, kg, 05/09/23 12:38:00 EDT, Dry Weight Start Date: 07/04/23 Status: Ordered omeprazole 20 mg oral enteric coated capsule 1 capsule, By Mouth, Daily, # 90 capsule, 2 Refills, Maintenance, 05/23/23 11:48:00 EDT, [facility], 175, cm, 05/09/23 12:38:00 [...] 3 Refills, Maintenance, 04/12/23 16:08:00 EDT, Powder, [facility] # [facility], Partial fill upon patient [...] of insulin use Confirmed Active 1EGD 2020 [address]; repeat 2022 3Colonoscopy 2012 polyp, repeat 2017 4EGD 2014 positive for gastroparesis. 5egd 2003 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 6upper endo 2014 7[facility]mitted [facility] 2009 8s/p left tkr 2011 Social History Social History Type Response Smoking Status Former smoker, quit more than 30 days ago; Other: quit in 1989; entered on: 05/09/23 Sex Patient Care team information Care Team Personnel Name: Sujey Pereira RN Position: [facility] RN Member Role: Primary Care Nurse Name: Nickie Calvo RN Position: [facility] SN RN Member Role: Primary Care Nurse Name: Adeel Dominguez RN Position: [facility] RN Member Role: Primary Care Nurse Name: Tierra Meeks NP Position: Reference Physician Member Role: Primary Care Nurse Address: Address: [address] [place] [address]- [place] Name: Margo Wilkins NP Position: [facility] Outreach Member Role: Primary Care Nurse Address: Address: [address] [place] [address]- [place] Name: Adeel Fountain MD Position: [facility] Physician - Primary Care Member Role: PCP Address: Address: [address] [place] [address]- [place] Name: Mindy Santiago RN Position: [facility] RN Member Role: Primary Care Nurse Name: Ramón Olivo MD Position: [facility] Physician - Infectious Disease Member Role: Lifetime Consulting Physician Address: Address: [address] [place] [address] [place] [address]- [place] Care Team Related Persons Name: RICHARD REDDY Address: home [address] [place] [address]
--- OUTSIDE RECORDS SUMMARY | 2024-10-12 12:35 | XMS_ITS | Continuity of Care Document ---
Author Organization [facility] Zackery lt Address [address] [place] [address]- Care Team Providers Care Routing Machine Operator Name Role Phone Adeel Fountain MD Primary Care Physician [facility]counter [facility] Date(s): 02/15/22 - 03/17/22 [facility] Adult [address] [place] [address]- Allergies, Adverse Reactions, Alerts Substance Reaction Severity [...] Note: TEREBETTY 4Admin Note: Biomedical Jon of [facility] [...] 12/21/21 11:37:00 EST, Route to Pharmacy Electronically, [id number], [facility] ([place]), 176, cm, 10/26/21 9:28:00 EST, H... Start Date: 12/21/21 Status: Ordered CoQ10 = 300 mg, By Mouth, Daily, 0 Refills, Maintenance, 07/04/18 10:56:18 EDT Start Date: 07/04/18 Status: Ordered Crestor 5 mg oral tablet 1 tablet = 5 mg, By Mouth, Daily, # 90 tablet, 3 Refills, Maintenance, 12/21/21 11:37:00 EST, [email or web address] Partial fill upon patient request if the prescription is for aschedule II opioid drug., 176, cm, 10/26/21 9:28:00... Start Date: 12/21/21 Status: Ordered diltiazem 300 mg/24 hours oral capsule, extended release 300 mg, 1, capsule, By Mouth, Daily, # 90 capsule, Refills 3, Tot. Refills 3, Maintenance, 12/21/2210:37:00 EST, Route to Pharmacy Electronically, [facility] ([place]), 176, cm, 10/26/21 9:28:00 [...] 0, 0, 09/17/06 2:07:12, Print RENETTA Number, [id number], Constant Indicator Start Date: 09/17/06 Status: Ordered [...] 1 Refills, Maintenance, 12/21/21 11:37:00 EST, [facility] ([place]), 176, cm, 10/26/21 9:28:00 [...] Refills, Maintenance, 06/13/22 8:47:00 EDT, Tablet[email or web address]), 176, cm, 10/26/21 9:28:00 EST, Height, 110.6, kg, 10/27/20 13:48:00 EST, Dry Weight Start Date: 06/13/22 Stop Date: 12/10/22 Status: Ordered montelukast 10 mg oral tablet 1, tablet, By Mouth, Daily, # 90 tablet, Refills 3, Tot. Refills 3, 12/21/21 11:37:00 EST, Route toPharmacy Electronically, [facility] ([place]), 176, cm, 10/26/21 9:28:00 [...] 2003 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 6upper endo 2014 7admitted [facility] 2009 8s/p left tkr 2012 Social History Social History Type Response Smoking Status Former smoker; Other : quit 1989; entered on: 02/26/18 Sex
--- OUTSIDE RECORDS SUMMARY | 2024-10-12 12:35 | XMS_ITS | Continuity of Care Document ---
Author Organization [facility] Zackery lt Address [address] [place] [address]- Care Team Providers Care Head Strength And Conditioning Coach Name Role Phone Adeel Fountain MD Primary Care Physician [phone] Encounter [facility] Date(s): 03/05/24 - 03/12/24 [facility] Adult [address] [place] [address]- Attending Physician: Jaquan LUCAS, Pauline Terry Referring Physician: Adeel Fountain MD Allergies, Adverse [...] RSV vaccine preF3, recombinant 10/05/23 Recorded SARS-CoV-2(COVID-19)mRNA-LNP vac([id number]) 09/22/23 Recorded influenza virus vaccine, inactivated 09/15/23 [...] influenza virus vaccine, inactivated 08/04/13 Goyo rded [id number] 12y+ bivalent booster vax 12/13/22 Given pneumococcal [...] Note: Biomedical Jon of [facility] 5Admin Note: BIOMEDICAL JON 6Admin [...] 12/21/21 11:37:00 EST, Route to Pharmacy Electronically, [id number], [facility], 176, cm, 10/26/21 9:28:00 EST, H... Start Date: 12/21/21 Status: Ordered cetirizine 10 mg oral tablet 1 tablet = 10 mg, By Mouth, Daily, # 90 tablet, 3 Refills, Maintenance, 04/20/23 13:44:00 EDT, Tablet, [facility], Partial fill upon patient request if the prescription is for a schedule II opioid drug., 175, cm, 04/12/23 15:36:00 EDT, Height... Start Date: 04/20/23 Status: Ordered Crestor 5 mg oral tablet 1 tablet = 5 mg, By Mouth, Daily, # 90 tablet, 2 Refills, Maintenance, 06/01/23 9:50:00 EDT, Tablet, [facility], Partial fill upon patient request if the prescription is for a schedule II opioid drug., 175, cm, 05/09/23 12:38:00 EDT, Height,... Start Date: 06/01/23 Status: Ordered diltiazem 300 mg/24 hours oral capsule, extended release 300 mg, 1, capsule, By Mouth, Daily, # 90 capsule, Refills 3, Tot. Refills 3, Maintenance, 07/26/2311:47:00 EDT, Route to Pharmacy Electronically, [facility], 175, cm, 06/16/23 9:25:00 EDT,Height, 109.6, kg, 05/09/23 12:38:00 EDT, Dry Weight Start Date: 07/26/23 Status: Ordered doxazosin 4 mg oral tablet 1 tablet = 4 mg, By Mouth, Daily, 0 Refills, Maintenance, 01/30/20 9:12:00 EDT Start Date: 01/30/20 Status: Ordered doxycycline hyclate 100 mg oral capsule 1 capsule = 100 mg, By Mouth, Daily, for 10 days, # 10 capsule, 0 Refills, Acute 03/15/24 14:08:00 EDT, 03/05/24 14:08:00 EDT, Capsule, [facility], Partial fill upon patient request if the prescription is for a schedule II opioid drug., 175,... Start Date: 03/05/24 Stop Date: 03/15/24 Status: Ordered Ecotrin Low Strength Adult 81 mg oral enteric coated tablet 81, mg, 1, tablet, By Mouth, Daily, 0, 0, 09/17/06 2:07:12, Print RENETTA Number, [id number], Constant Indicator Start Date: 09/17/06 Status: Ordered [...] Gm, 1 Refills, Maintenance, 02/16/23 10:19:00 EDT, [place], [facility], [...] 12/21/21 11:37:00 EST, [facility] ([place]), 176, cm, 10/26/21 9:28:00 EST, Height, 110.6, kg, 10/27/20 13:48:00 EST, Dry Weight Start Date: 12/21/21 Status: Ordered Metamucil Powder By Mouth, Daily at bedtime, 0 Refills, Maintenance, 05/08/13 11:48:10 EDT Start Date: 05/08/13 Status: Ordered montelukast 10 mg oral tablet 1, tablet, By Mouth, Daily, # 90 tablet, Refills 1, Maintenance, 01/14/24 12:04:00 EST, Route to Pharmacy Electronically, [facility], 175, cm, 12/16/23 13:50:00 EST, Height, 109.6, kg, 05/09/23 12:38:00 EDT, Dry Weight Start Date: 01/14/24 Status: Ordered omeprazole 20 mg oral enteric coated capsule 1 capsule, By Mouth, Daily, # 90 capsule, 1 Refills, Maintenance, 03/09/24 13:03:00 EDT, [facility], 175, cm, 03/05/24 14:58:00 EDT, Height, 109.6, kg, 05/09/23 12:38:00 EDT, Dry Weight Start Date: 03/09/24 Status: Ordered Ozempic 2 mg/3 mL (0.25 mg or 0.5 mg dose) subcutaneous solution See Instructions, INJECT 0.5MG UNDER THE SKIN ONCE WEEKLY, # 3 mL, 12 Refills, Maintenance, 01/16/24 15:35:00 EST, [facility], 175, cm, 12/16/23 13:50:00 [...] 3 Refills, Maintenance, 04/12/23 16:08:00 EDT, Powder, [facility] # [facility], Partial fill upon patient request if the prescription is for a schedule II opioid drug., 1... Start Date: 04/12/23 Status: Ordered Zestoretic 25 mg-20 mg oral tablet 1 tablet, By Mouth, Daily, # 90 tablet, 3 Refills, Maintenance, 12/21/21 11:36:00 EST, Tablet, [facility] ([place]), 1 tablet By Mouth Daily,x90 days, 176, [...] Range]: 1 2 3 Height 175 cm (03/05/24 2:10 PM) 175 cm (03/05/24 1:58 PM) 175 cm (03/05/24 1:52 PM) Weight 109.2 kg (03/05/24 1:52 PM) Oxygen Saturation [94-100 %] 99 % (03/05/24 1:52 PM) Body Mass Index [18.5-24.99 kg/m2] 35.66 kg/m2 *>HHI* (03/05/24 1:52 PM) Blood Pressure [90-138/55-84 mm Hg] 132/78mm Hg (03/05/24 2:10 PM) 152/82mm Hg *H* (03/05/24 1:58 PM) 152/80mm Hg *H* (03/05/24 1:52 PM) Temperature [96.8-100.4 DegF] 97.9 DegF (03/05/24 1:52 PM) Temperature Route Oral (03/05/24 1:52 PM) Weight Obtained Via Standing scale (03/05/24 1:52 PM) Social History Social History Type Response Smoking Status Former smoker, quit more than 30 days ago; Other: quit in 1989; entered on: 05/09/23 Sex Patient Care team information Care Team Personnel Name: Sujey Pereira RN Position: [facility] RN Member Role: Primary Care Nurse Name: Nickie Calvo RN Position: [facility] SN RN Member Role: Primary Care Nurse Name: Adeel Dominguez RN Position: [facility] RN Member Role: Primary Care Nurse Name: Tierra Meeks NP Position: Reference Physician Member Role: Primary Care Nurse Address: Address: [address] [place] [address]- [place] Name: Margo Wilkins NP Position: [facility] Outreach Member Role: Primary Care Nurse Address: Address: [address] [place] [address]- [place] Name: Adeel Fountain MD Position: [facility] Physician - Primary Care Member Role: PCP Address: Address: [address] [place] [address]- [place] Name: Mindy Santiago RN Position: [facility] RN Member Role: Primary Care Nurse Name: Ramón Olivo MD Position: [facility] Physician - Infectious Disease Member Role: Lifetime Consulting Physician Address: Address: [address] [place] [address] [place] [address]- Care Team Related Persons Name: RICHARD REDDY Address: home [address] [place] [address]
--- OUTSIDE RECORDS SUMMARY | 2024-10-12 12:35 | XMS_ITS | Continuity of Care Document ---
Author Organization [facility] Zackery lt Address [address] [place] [address]- Care Team Providers Care Appointment Coordinator Name Role Phone Adeel Fountain MD Primary Care Physician [facility] Date[facility]s): 09[facility]22 - 10/28/22 [facility] Adult [address] [place] [address]- Attending Physician: Admtr, Ar8 Allergies, Adverse Reactions, [...] 12/21/21 11:37:00 EST, Route to Pharmacy Electronically, [id number], [facility]), 176, cm, 10/26/21 9:28:00 EST, H... Start Date: 12/21/21 Status: Ordered azithromycin 250 mg oral tablet See Instructions, Take 2 tablets on day 1 and 1 tablet daily for next 4 days, # 6 tablet, 0 Refills, Maintenance, 08/31/22 13:38:00 EDT, Tablet, [facility], Partial fill upon [...] 3 Refills, Maintenance, 12/21/21 11:37:00 EST, Tablet, [facility] ([facility], Partial fill upon patient request if the prescription is for aschedule II opioid drug., 176, cm, 10/26/21 9:28:00... Start Date: 12/21/21 Status: Ordered diltiazem 300 mg/24 hours oral capsule, extended release 300 mg, 1, capsule, By Mouth, Daily, # 90 capsule, Refills 3, Tot. Refills 3, Maintenance, 04/28/2210:41:00 EDT, Route to Pharmacy Electronically, [facility], 175, cm, 02/11/22 [...] 0, 0, 09/17/06 2:07:12, Print RENETTA Number, [id number], Constant Indicator Start Date: 09/17/06 Status: Ordered [...] 11:36:00 EST, Powder, [facility] ([facility], 1 puffs Inhalation 2 times a day,x90 [...] capsule, 1 Refills, Maintenance, 12/21/21 11:37:00 EST, [facility] ([place]), 176, cm, 10/26/21 9:28:00 [...] tablet, 1 Refills, Maintenance, 10/19/22 14:49:00EST, Tablet, [facility], 175, cm, 09/28/22 10:09:00 EST, Height, 108, kg, 02/11/22 2:26:00 EDT, Dry Weight Start Date: 10/19/22 Stop Date: 04/17/23 Status: Ordered metFORMIN 500 mg oral tablet 1 tablet = 500 mg, By Mouth, 2 times a day, for 90 days, # 180 tablet, 1 Refills, Hard Stop 12/10/22 8:47:00 EST, 06/13/22 8:47:00 EDT, Tablet, [facility] ([place]), 176, cm, 10/26/21 9:28:00 EST, Height, 110.6, kg, 10/27/20 13:48:00 EST,... Start Date: 06/13/22 Stop Date: 12/10/22 Status: Ordered montelukast 10 mg oral tablet 1, tablet, By Mouth, Daily, # 90 tablet, Refills 3, Tot. Refills 3, 12/21/21 11:37:00 EST, Route toPharmacy Electronically, [facility] ([place]), 176, cm, 10/26/21 [...] STRIPTO CHECK GLUCOSE TWICE DAILY, 176, cm, 05/28/21 9:58:00 EDT, Height, 110.6, kg, 10/27/20 13:48:00 [...] of insulin use Confirmed Active 1EGD 2020 [address]1012; repeat 2022 3Colonoscopy 2012 polyp, repeat 2017 4EGD 2014 positive for gastroparesis. 5egd 2003 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 6upper endo 2014 7admitted [facility] 2009 8s/p left tkr 2011 Social History Social History Type Response Smoking Status Former smoker; Other : quit 1989; entered on: 02/26/18 Sex History and physical note * Carol Mendoza: PERFORM Event Display: History and Physical Hospital Authored Date: * Carol Mendoza: PERFORM Event Display: History and Physical Hospital Authored Date: * Mary Persaud: PERFORM Event Display: History and Physical Hospital Authored Date: Admission evaluation note * Carol Mendoza: PERFORM Event Display: Admission Note Authored Date: Note * Event Display: Laboratory Result Scanned Authored Date: * Event Display: Laboratory Result Scanned Authored Date: * Event Display: Non BH Lab Results Authored Date: * Event Display: IR Special Procedures, Non-BH Authored Date: * Event Display: EKG Non BH Authored Date: * Event Display: Cardiology Office Note, Non-BH Authored Date: * Event Display: CT [...] Display: Radiology Results Scanned Authored Date: * Mary Persaud: PERFORM Event Display: Discharge/Transfer Note Hospital Authored Date: * Carol Mendoza: PERFORM Event Display: Discharge/Transfer Note Hospital Authored Date: EKG study * Event Display: EKG Authored Date: Cardiology Consult note * Event Display: Consult Note Cardiology Authored Date: Patient Care team information Care Team Personnel Name: Sujey Pereira RN Position: [facility] RN Member Role: Primary Care Nurse Name: Nickie Calvo RN Position: [facility] SN RN Member Role: Primary Care Nurse Name: Adeel Dominguez RN Position: [facility] RN Member Role: Primary Care Nurse Name: Tierra Meeks NP Position: [facility] PCO Associate Professional Member Role: Primary Care Nurse Name: Margo Wilkins NP Position: [facility] Associate Professional Member Role: Primary Care Nurse Address: Address: [address] [place] [address]- [place] Name: Adeel Fountain MD Position: [facility] Primary Care Physician Member Role: PCP Address: Address: [address] [place] [address]- [place] Name: Mindy Santiago RN Position: [facility] RN Member Role: Primary Care Nurse Name: Ramón Olivo MD Position: [facility] Infectious Disease MD Member Role: Lifetime Consulting Physician Address: Address: [address] [place] [address]- Care Team Related Persons Name: BARRYRICHARD POSADA Address: [address] [address]
--- OUTSIDE RECORDS SUMMARY | 2024-10-12 12:35 | XMS_ITS | Continuity of Care Document ---
Author Organization [facility] Zackery lt Address [address] [place] [id number]- Care Team Providers Care Lace Winder Name Role Phone Adeel Fountain MD Primary Care Physician Encounter [facility] [place] Date(s): 07/24/21 - 07/31/21 [facility] Adult [address] [place] [address]- Encounter Diagnosis Chronic Prostatitis(Discharge Diagnosis) - 07/24/21 Dysuria(Discharge Diagnosis) - 07/24/21 Attending Physician: Daniel CONSUMER MARKETING SPECIALIST, Margo Carrera Allergies, Adverse Reactions, Alerts Substance [...] 3Admin Note: ADRY 4Admin Note: Biomedical Jon [facility] 5Admin Note: BIOMEDICAL JON 6Admin Note: [...] 02/20/21 14:02:00 EDT, Route to Pharmacy Electronically, [id number], [facility], 176, cm, 02/20/21 13:51:00 [...] 0, 0, 09/17/06 2:07:12, Print RENETTA Number, [id number], Constant Indicator Start Date: 09/17/06 Status: Ordered [...] 3 Refills, Maintenance, 05/06/20 14:07:00 EDT, Powder, [facility], 1 puffs Inhalation 2 [...] tablet, 3 Refills, Maintenance, 05/06/20 14:05:00EDT, Tablet, [facility], 175, cm, 05/06/20 13:45:00 [...] capsule, 0 Refills, Maintenance, 07/07/21 10:48:00 EDT, [facility], 176, cm, 06/24/21 14:26:00 [...] 02/12/21 8:21:00 EDT, Route to Pharmacy Electronically, [facility], 176, cm, 12/22/20 10:41:00 [...] with no history of insulin use(Confirmed) Active 91556; repeat 2022 2Colonoscopy 2013 polyp, repeat 2017 3EGD 2014 positive for gastroparesis. 4egd 2003 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 5upper endo 2014 [facility] 7s/p left tkr 2011 Diagnosis Diagnosis Type Effective Dates Health Status Clinical Service Informant Chronic Prostatitis Discharge Diagnosis 07/24/21 Dysuria Discharge Diagnosis 07/24/21 Vital Signs Most recent to oldest [Reference Range]: 1 Height 176 cm (07/24/21 7:50 AM) Oxygen Saturation [94-100 %] 96 % (07/24/21 7:50 AM) Pulse Rate [55-90 bpm] 76 bpm (07/24/21 7:50 AM) Blood Pressure [90-138/55-84 mm Hg] 136/ 66mm Hg (07/24/21 7:50 AM) Respiratory Rate [16-30 br/min] 14 br/mi n *L* (07/24/21 7:50 AM) Temperature [96.8-100.4 DegF] 98.0 DegF (07/24/21 7:50 AM) Mode of Delivery (Oxygen) Room air (07/24/21 7:50 AM) Blood pressure sites Arm, right (07/24/21 7:50 AM) Temperature Route Oral (07/24/21 7:50 AM) Social History Social History Type Response Smoking Status Former smoker; Other : quit 1989; entered on: 02/26/18 Sex
--- OUTSIDE RECORDS SUMMARY | 2024-10-12 12:35 | XMS_ITS | Continuity of Care Document ---
Author Organization [facility] Zackery lt Address [address] [place] [address]- Care Team Providers Care Burglar Alarm Mechanic Name Role Phone Adeel Fountain MD Primary Care Physician [phone] [place] [facility] [place] 03/27/21 [facility] Adult [address] [place] [address]- Attending Physician: Not on Staff, Attending MD [...] ADRY 4Admin Note: Biomedical Jon of [facility] 5Admin Note: BIOMEDICAL JON 6Admin Note: GIVEN [...] 02/20/21 14:02:00 EDT, Route to Pharmacy Electronically, [id number], [facility], 176, cm, 02/20/21 13:51:00 [...] 0, 0, 09/17/06 2:07:12, Print RENETTA Number, [id number], Constant Indicator Start Date: 09/17/06 Status: Ordered Elimite 5% cream 1 application, Topically, Once, # 60 Gm, 0 Refills, Soft Stop, 02/20/21 14:06:00 EDT, Cream, [facility], Partial fill upon patient [...] 3 Refills, Maintenance, 05/06/20 14:07:00 EDT, Powder, [facility], 1 puffs Inhalation 2 times a day,x90 days, 175, cm, 05/06/20 13:45:00 EDT, Height, 113, kg, 01/06/20 13:04:00 EST, Dry Weight Start Date: 05/06/20 Stop Date: 05/01/21 Status: Ordered ketoconazole 2% topical cream 1 application, Topically, 2 times a day, # 60 Gm, 2 Refills, Maintenance, 02/20/21 14:06:00 EDT, Cream, [facility], Partial fill upon patient request if the prescription is for a schedule II opioid drug., 1 application Topically 2 times a d... Start Date: 02/20/21 Status: Ordered Lotrisone 0.05%-1% cream 1 application, Topically, 2 times a day, # 45 Gm, 0 Refills, Maintenance, 01/29/20 11:18:00 EDT, Cream, [facility], 1 application Topically [...] tablet, 3 Refills, Maintenance, 05/06/20 14:05:00EDT, Tablet, [facility], 175, cm, 05/06/20 13:45:00 EDT, Height, 113, kg, 01/06/20 13:04:00 EST, Dry Weight Start Date: 05/06/20 Stop Date: 05/01/21 Status: Ordered nabumetone 500 mg oral tablet 1 tablet = 500 mg, By Mouth, 2 times a day, with food, # 14 tablet, 0 Refills, Maintenance, 03/20/21 7:16:00 EDT, Tablet, [facility], Partial fill upon patient request if the prescription is for a schedule II opioid drug., 176, cm, 03/20/21... Start Date: 03/20/21 Stop Date: 03/27/21 Status: Ordered omeprazole 20 mg oral enteric coated capsule 1 capsule, By Mouth, Daily, # 90 capsule, 0 Refills, Maintenance, 12/27/20 11:35:00 EST, [facility], 176, cm, 12/22/20 10:41:00 [...] 02/12/21 8:21:00 EDT, Route to Pharmacy Electronically, [facility], 176, cm, 12/22/20 10:41:00 [...] with no history of insulin use(Confirmed) Active 88100; repeat 2022 2Colonoscopy 2013 polyp, repeat 2018 3EGD 2014 positive for gastroparesis. 4egd 2003 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 5upper endo 2014 6admitted [facility] 2009 7s/p left tkr 2011 Vital Signs Most recent to oldest [Reference Range]: 1 Height 176 cm (03/20/21 6:57 AM) Weight 109.7 kg (03/20/21 6:57 AM) Oxygen Saturation [94-100 %] 96 % (03/20/21 6:57 AM) Pulse Rate [55-90 bpm] 64 bpm (03/20/21 6:57 AM) Body Mass Index [18.5-24.99] 35.41 *>HHI* (03/20/21 6:57 AM) Blood Pressure [90-138/55-84 mm Hg] 124/ 72mm Hg (03/20/21 6:57 AM) Blood pressure sites Arm, left (03/20/21 6:57 AM) Social History Social History Type Response Smoking Status Former smoker; Other : quit 1989; entered on: 02/26/18 Sex
--- OUTSIDE RECORDS SUMMARY | 2024-10-12 12:35 | XMS_ITS | Continuity of Care Document ---
Author Organization [facility] Eric Thapa Zackery lt Address [address] [place] [address]- Care Team Providers Care Aircraft Quality Control Inspector Name Role Phone Adeel Fountain MD Primary Care Physician Encounter [facility] Date(s): 12/26/19 - 01/02/20 [facility] Adult [address] [place] [address]- [facility] Attending Physician: Adeel Fountain MD Allergies, Adverse [...] TEREBETTY 4Admin Note: Biomedical Jon of [facility] [...] 02/26/18 9:54:20 EDT, Route to Pharmacy Electronically, [id number], [facility] Start [...] 0, 0, 09/17/06 2:07:12, Print RENETTA Number, [id number], Constant Indicator Start Date: 09/17/06 Status: Ordered [...] 11 Refills, Maintenance, 12/26/19 10:25:00 EST, Aerosol, [facility], 172, cm, 12/26/19 10:08:00 EST, [...] TAKE 1 CAPSULE BY MOUTH ONCE DAILY, [facility] Start Date: 09/04/19 Status: Ordered [...] Acute subdural hematoma(Confirmed) Active Thoracic spondylosis(Confirmed) Active 38177; repeat 2022 2Colonoscopy 2013 polyp, repeat 2018 3EGD 2014 positive for gastroparesis. 4egd 2003 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 5upper endo 2014 6admitted [facility] 2009 7s/p left tkr 2011 Vital Signs Most recent to oldest [Reference Range]: 1 2 Height 172 cm (12/26/19 10:33 AM) 172 cm (12/26/19 10:08 AM) Weight 114.8 kg (12/26/19 10:08 AM) Oxygen Saturation [94-100 %] 98 % (12/26/19 10:08 AM) Pulse Rate [55-90 bpm] 96 bpm *H* (12/26/19 10:08 AM) Body Mass Index [18.5-24.99] 38.8 *>HHI* (12/26/19 10:08 AM) Blood Pressure [90-138/55-84 mm Hg] 120/ 70mm Hg (12/26/19 10:33 AM) 144/70mm Hg *H* (12/26/19 10:08 AM) Respiratory Rate [16-30 br/min] 12 br/mi n *L* (12/26/19 10:08 AM) Mode of Delivery (Oxygen) Room air (12/26/19 10:08 AM) Blood pressure sites Arm, left (12/26/19 10:08 AM) Weight Obtained Via Standing scale (12/26/19 10:08 AM) Social History Social History Type Response Smoking Status Former smoker; Other : quit 1989; entered on: 02/26/18 Sex
--- OUTSIDE RECORDS SUMMARY | 2024-10-12 12:35 | XMS_ITS | Continuity of Care Document ---
Author Organization [facility] Address [address] [place] [address]- Care Team Providers Care Airborne Operations Superintendent Name Role Phone Adeel Fountain MD Primary Care Physician Encounter [facility] [place] Date(s): 10/27/20 - 11/03/20 [facility] [address] [place] [address]- Attending Physician: Eve Tierney MD Referring Physician: Adeel Fountain MD Allergies, [...] 02/26/18 9:54:20 EDT, Route to Pharmacy Electronically, [id number], [facility] Start Date: 02/26/18 Status: [...] 0, 0, 09/17/06 2:07:12, Print RENETTA Number, [id number], Constant Indicator Start Date: 09/17/06 Status: Ordered [...] 3 Refills, Maintenance, 05/06/20 14:07:00 EDT, Powder, [facility], 1 puffs Inhalation 2 times a day,x90 days, 175, cm, 05/06/20 13:45:00 EDT, Height, 113, kg, 01/06/20 13:04:00 EST, Dry Weight Start Date: 05/06/20 Stop Date: 05/01/21 Status: Ordered Lotrisone 0.05%-1% cream 1 application, Topically, 2 times a day, # 45 Gm, 0 Refills, Maintenance, 01/29/20 11:18:00 EDT, Cream, [facility], 1 application Topically 2 times [...] capsule, 0 Refills, Maintenance, 09/15/20 14:15:00 EDT, [facility], 176, cm, 07/30/20 13:27:00 [...] 01/29/20 11:19:00 EDT, Route to Pharmacy Electronically, [facility], 172, cm, 01/29/20 11:00:00 [...] with no history of insulin use(Confirmed) Active 71797; repeat 2022 2Colonoscopy 2013 polyp, repeat 2018 3EGD 2014 positive for gastroparesis. 4egd 2003 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 5upper endo 2014 6admitted [facility] 2009 7s/p left tkr 2011 Vital Signs Most recent to oldest [Reference Range]: 1 Height 176 cm (10/27/20 1:48 PM) Weight 110.6 kg (10/27/20 1:48 PM) Oxygen Saturation [94-100 %] 100 % (10/27/20 1:48 PM) Pulse Rate [55-90 bpm] 84 bpm (10/27/20 1:48 PM) Body Mass Index [18.5-24.99] 35.71 *>HHI* (10/27/20 1:48 PM) Blood Pressure [90-138/55-84 mm Hg] 150/ 71mm Hg *H* (10/27/20 1:48 PM) Respiratory Rate [16-30 br/min] 16 br/mi n (10/27/20 1:48 PM) Temperature [96.8-100.4 DegF] 97.5 DegF (10/27/20 1:48 PM) Mode of Delivery (Oxygen) Room air (10/27/20 1:48 PM) Blood pressure sites Arm, right (10/27/20 1:48 PM) Temperature Route Temporal (10/27/20 1:48 PM) Dry Weight 110.6 kg (10/27/20 1:48 PM) Weight Obtained Via Standing scale (10/27/20 1:48 PM) Dry Weight Obtained Via Standing scale (10/27/20 1:48 PM) Social History Social History Type Response Smoking Status Former smoker; Other : quit 1989; entered on: 02/26/18 Sex
--- OUTSIDE RECORDS SUMMARY | 2024-10-12 12:35 | XMS_ITS | Continuity of Care Document ---
Author Organization [facility] Address [address] [place] [address]- Care Team Providers Care Philosophy Faculty Name Role Phone Adeel Fountain MD Primary Care Physician [place] [facility] [place] 01/16/20 [facility] [address] [place] [address]- [facility] Attending Physician: Vibha Wallace Admitting Physician: AdmVibha fish Referring Physician: Admtr, Vibha Allergies, Adverse Reactions, [...] 02/26/18 9:54:20 EDT, Route to Pharmacy Electronically, [id number], [facility] Start Date: 02/26/18 Status: Ordered azithromycin 250 mg oral tablet 1 pack/packet, By Mouth, Once, # 6 tablet, 0 Refills, Soft Stop, 01/11/20 14:45:00 EST, Tablet, [facility], 172, cm, 01/11/20 14:28:00 EST, Height, 113, kg, 01/06/20 13:04:00 EST, Dry Weight Start Date: 01/11/20 Status: Ordered azithromycin 250 mg oral tablet 1 pack/packet, By Mouth, Once, # 6 tablet, 0 Refills, Soft Stop, 01/11/20 14:45:00 EST, Tablet, [facility], 172, cm, 01/11/20 14:28:00 EST, Height, [...] 0, 0, 09/17/06 2:07:12, Print RENETTA Number, [id number], Constant Indicator Start Date: 09/17/06 Status: Ordered [...] 11 Refills, Maintenance, 12/26/19 10:25:00 EST, Aerosol, [facility], 172, cm, 12/26/19 10:08:00 [...] TAKE 1 CAPSULE BY MOUTH ONCE DAILY, [facility] Start Date: 09/04/19 Status: Ordered Patient's Own [...] Acute subdural hematoma(Confirmed) Active Thoracic spondylosis(Confirmed) Active 03174; repeat 2022 2Colonoscopy 2013 polyp, repeat 2018 3EGD 2014 positive for gastroparesis. 4egd 2003 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 5upper endo 2014 6admitted [facility] 2009 7s/p left tkr 2011 Social History Social History Type Response Smoking Status Former smoker; Other : quit 1989; entered on: 02/26/18 Sex
--- OUTSIDE RECORDS SUMMARY | 2024-10-12 12:35 | XMS_ITS | Continuity of Care Document ---
Author Organization [facility] Zackery lt Address [address] [place] [address]- Care Team Providers Care Boat Engine Mechanic Name Role Phone Essie CHRISTINA, Adeel Nguyen Primary Care Physician [phone] Encounter [facility] Date(s): 08/31/22 - 09/07/22 [facility] Adult [address] [place] [address]- Encounter Diagnosis Asthmatic bronchitis(Discharge Diagnosis) - 08/31/22 Attending Physician: Cary CAST SHELL GRINDER, Katheryn Allergies, Adverse Reactions, Alerts Substance Reaction [...] Note: ADRY 4Admin Note: Biomedical Echo [facility] 5Admin Note: BIOMEDICAL ECHO 6Admin Note: GIVEN [...] 12/21/21 11:37:00 EST, Route to Pharmacy Electronically, [id number], [facility]), 176, cm, 10/26/21 9:28:00 EST, H... Start Date: 12/21/21 Status: Ordered azithromycin 250 mg oral tablet See Instructions, Take 2 tablets on day 1 and 1 tablet daily for next 4 days, # 6 tablet, 0 Refills, Maintenance, 08/31/22 13:38:00 EDT, Tablet, [facility] [...] 3 Refills, Maintenance, 12/21/21 11:37:00 EST, Tablet, [facility], Partial fill upon patient request if [...] 0, 0, 09/17/06 2:07:12, Print RENETTA Number, [id number], Constant Indicator Start Date: 09/17/06 Status: Ordered [...] 11:36:00 EST, Powder, [facility] ([facility], 1 puffs Inhalation 2 times a day,x90 [...] capsule, 1 Refills, Maintenance, 12/21/21 11:37:00 EST, [facility] ([place]), 176, cm, 10/26/21 9:28:00 [...] 1 Refills, Maintenance, 06/13/22 8:47:00 EDT, Tablet, [facility] ([place]), 176, cm, 10/26/21 9:28:00 EST, Height, 110.6, kg, 10/27/20 13:48:00 EST, Dry Weight Start Date: 06/13/22 Stop Date: 12/10/22 Status: Ordered montelukast 10 mg oral tablet 1, tablet, By Mouth, Daily, # 90 tablet, Refills 3, Tot. Refills 3, 12/21/21 11:37:00 EST, Route toPharmacy Electronically, [facility] ([place]), 176, cm, 10/26/21 9:28:00 [...] no history of insulin use Confirmed Active 2020; repeat 2022 3Colonoscopy 2013 polyp, repeat 2018 4EGD 2014 positive for gastroparesis. 5egd 2003 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 6upper endo 2014 7admitted [facility] 2009 8s/p left tkr 2011 Diagnosis Diagnosis Type Effective Dates Health Status Clinical Service Informant Asthmatic bronchitis Discharge Diagnosis 08/31/22 Vital Signs Most recent to oldest [Reference Range]: 1 Height 175 cm (08/31/22 1:05 PM) Social History Social History Type Response Smoking Status Former smoker; Other : quit 1989; entered on: 02/26/18 Sex Patient Care team information Personnel Name: Essie CHRISTINA, Adeel Nguyen Address: Address: [address] [place] [id number]
--- OUTSIDE RECORDS SUMMARY | 2024-10-12 12:36 | XMS_ITS | Continuity of Care Document ---
Author Organization [facility] Zackery lt Address [address] [place] [address]- Care Team Providers Care Filter Tender Name Role Phone Adeel Fountain MD Primary Care Physician [phone] Encounter [facility] Date(s): 05/27/20 - 06/03/20 [facility] Adult [address] [place] [address]- [facility] Attending Physician: Not on Staff, Attending MD [...] Note: ADRY 4Admin Note: Biomedical Jon of [facility] 5Admin Note: BIOMEDICAL JON 6Admin Note: GIVEN [...] 02/26/18 9:54:20 EDT, Route to Pharmacy Electronically, [id number], [facility] Start Date: 02/26/18 Status: [...] 0, 0, 09/17/06 2:07:12, Print RENETTA Number, [id number], Constant Indicator Start Date: 09/17/06 Status: Ordered [...] 3 Refills, Maintenance, 05/06/20 14:07:00 EDT, Powder, [facility], 1 puffs Inhalation 2 times a day,x90 days, 175, cm, 05/06/20 13:45:00 EDT, Height, 113, kg, 01/06/20 13:04:00 EST, Dry Weight Start Date: 05/06/20 Stop Date: 05/01/21 Status: Ordered Lotrisone 0.05%-1% cream 1 application, Topically, 2 times a day, # 45 Gm, 0 Refills, Maintenance, 01/29/20 11:18:00 EDT, Cream, [facility], 1 application Topically 2 times a day, 172, cm, 01/29/20 11:00:00 EDT, Height, 113, kg, 01/06/20 13:04:00 EST, Dry Weight Start Date: 01/29/20 Status: Ordered melatonin 10 mg oral capsule 1 capsule = 10 mg, By Mouth, Daily at bedtime, # 60 capsule, 1 Refills, Maintenance, 08/17/16 17:55:03 Start Date: 9/27/16 Status: Ordered Metamucil Powder By Mouth, Daily at bedtime, 0 Refills, Maintenance, 05/08/13 11:48:10 EDT Start Date: 05/08/13 Status: Ordered metFORMIN 500 mg oral tablet 1 tablet = 500 mg, By Mouth, 2 times a day, # 180 tablet, 3 Refills, Maintenance, 05/06/20 14:05:00EDT, Tablet, [facility], 175, cm, 05/06/20 13:45:00 EDT, Height, 113, kg, 01/06/20 13:04:00 EST, Dry Weight Start Date: 05/06/20 Stop Date: 05/01/21 Status: Ordered omeprazole 20 mg oral enteric coated capsule 1 capsule, By Mouth, Daily, # 90 capsule, 0 Refills, Maintenance, 03/25/20 14:11:00 EDT, [facility], 175, cm, 01/30/20 9:09:00 [...] 01/29/20 11:19:00 EDT, Route to Pharmacy Electronically, [facility], 172, cm, 01/29/20 11:00:00 [...] with no history of insulin use(Confirmed) Active 08177; repeat 2022 2Colonoscopy 2013 polyp, repeat 2017 3EGD 2014 positive for gastroparesis. 4egd 2003 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 5upper endo 2014 6admitted [facility] 2009 7s/p left tkr 2011 Social History Social History Type Response Smoking Status Former smoker; Other : quit 1989; entered on: 02/26/18 Sex
--- OUTSIDE RECORDS SUMMARY | 2024-10-12 12:36 | XMS_ITS | Continuity of Care Document ---
Author Organization [facility] Zackery lt Address [address] [place] [address]- Care Team Providers Care It Technical Architect Name Role Phone Adeel Fountain MD Primary Care Physician [phone] Encounter [facility] Date(s): 04/11/23 - 05/11/23 [facility] Adult [address] [place] [address]- Allergies, Adverse Reactions, Alerts Substance Reaction Severity Status morphine 1 don't want it Active Percocet 5/325 2 makes me feel like pulling skin off Active 1pt feels like taking his skin off when given morphine 2pt feels like taking his skin off when on percocet Immunizations Given and Recorded Vaccine Date Status Refusal Reason [id number] 12y+ bivalent booster vax 12/13/22 Given pneumococcal [...] 4Admin Note: Biomedical [facility] 5Admin Note: BIOMEDICAL JON 6Admin Note: GIVEN [...] 12/21/21 11:37:00 EST, Route to Pharmacy Electronically, [id number], [facility]), 176, cm, 10/26/21 9:28:00 EST, H... [...] 3 Refills, Maintenance, 02/16/23 10:00:00 EDT, Tablet, [facility], Partial fill upon patient request if the prescription is for a schedule IIopioid drug., 175, cm, 02/16/23 9:32:00 EDT, Height... Start Date: 02/16/23 Status: Ordered diltiazem 300 mg/24 hours oral capsule, extended release 300 mg, 1, capsule, By Mouth, Daily, # 90 capsule, Refills 3, Tot. Refills 3, Maintenance, 04/28/2210:41:00 EDT, Route to Pharmacy Electronically, [facility], 175, cm, 02/11/22 [...] 0, 0, 09/17/06 2:07:12, Print RENETTA Number, [id number], Constant Indicator Start Date: 09/17/06 Status: Ordered Farxiga 5 mg oral tablet 1 tablet = 5 mg, By Mouth, Daily, # 90 tablet, 3 Refills, Maintenance, 12/13/22 14:14:00 EST, Tablet, [facility], Partial fill upon [...] Gm, 1 Refills, Maintenance, 02/16/23 10:19:00 EDT, [place], [facility], Partial fill upon [...] capsule, 1 Refills, Maintenance, 12/21/21 11:37:00 EST, [facility]), 176, cm, 10/26/21 9:28:00 EST, Height, 110.6, kg, 10/27/20 13:48:00 EST, Dry Weight Start Date: 12/21/21 Status: Ordered Metamucil Powder By Mouth, Daily at bedtime, 0 Refills, Maintenance, 05/08/13 11:48:10 EDT Start Date: 05/08/13 Status: Ordered montelukast 10 mg oral tablet 1, tablet, By Mouth, Daily, # 90 tablet, Refills 3, Tot. Refills 3, 03/10/23 10:02:00 EDT, Route toPharmacy Electronically, [facility], 175, cm, 02/16/23 9:32:00 EDT, Height, 108, kg, 02/11/22 2:26:00 EDT, Dry Weight Start Date: 03/10/23 Status: Ordered omeprazole 20 mg oral enteric coated capsule 1 capsule, By Mouth, Daily, # 90 capsule, 3 Refills, Maintenance, 02/16/23 9:59:00 EDT, [facility], 175, cm, 02/16/23 9:32:00 EDT, Height, 108, kg, 02/11/22 2:26:00 EDT, Dry Weight Start Date: 02/16/23 Status: Ordered Ozempic 2 mg/3 mL (0.25 mg or 0.5 mg dose) subcutaneous solution = 0.5 mg, Subcutaneous Injection, Every week, E11.9 diabetes type 2, # 3 mL, 6 Refills, Maintenance, 03/15/23 15:27:00 EDT, [facility], Partial fill upon patient request if the prescription is for a schedule II opioid drug., 175, cm, 03/14/... Start Date: 03/15/23 Status: Ordered Patient's Own [...] 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 6upper endo 2014 7admitted [facility] 2009 8s/p left tkr 2011 Social History Social History Type Response Smoking Status Former smoker, quit more than 30 days ago; Other: quit in 1989; entered on: 05/09/23 Sex Patient Care team information Care Team Personnel Name: Sujey Pereira RN Position: [facility] RN Member Role: Primary Care Nurse Name: Nickie Calvo RN Position: [facility] RN Member Role: Primary Care Nurse Name: Adeel Dominguez RN Position: [facility] RN Member Role: Primary Care Nurse Name: Tierra Meeks NP Position: Reference Physician Member Role: Primary Care Nurse Address: Address: [address] [place] [address]- [place] Name: Margo Wilkins NP Position: [facility] Outreach Member Role: Primary Care Nurse Address: Address: [address] [place] [address]- [place] Name: Adeel Fountain MD Position: [facility] Physician - Primary Care Member Role: PCP Address: Address: [address] [place] [address]- [place] Name: Mindy Santiago RN Position: [facility] RN Member Role: Primary Care Nurse Name: Ramón Olivo MD Position: [facility] Physician - Infectious Disease Member Role: Lifetime Consulting Physician Address: Address: [address] [place] [address] [place] [address]- [place] Care Team Related Persons Name: RICHARD REDDY Address: [address] [address]
--- OUTSIDE RECORDS SUMMARY | 2024-10-12 12:36 | XMS_ITS | Continuity of Care Document ---
Author Organization [facility] Zackery lt Address [address] [place] [address]- Care Team Providers Care Ski Technician Name Role Phone Adeel Founatin MD Primary Care Physician [phone] Encounter [facility] Date(s): 06/08/21 - 06/15/21 [facility] Adult [address] [place] [address]- Encounter Diagnosis Sore throat(Discharge Diagnosis) - 06/08/21 Attending Physician: Jaquan LUCAS, Pauline Terry Referring Physician: Devendra Almanzar MD Allergies, Adverse Reactions, Alerts Substance Reaction [...] Note: ADRY 4Admin Note: Biomedical Jon [facility] 5Admin Note: BIOMEDICAL JON 6Admin Note: [...] 02/20/21 14:02:00 EDT, Route to Pharmacy Electronically, [id number], [facility], 176, cm, 02/20/21 13:51:00 [...] 0, 0, 09/17/06 2:07:12, Print RENETTA Number, [id number], Constant Indicator Start Date: 09/17/06 Status: Ordered [...] 3 Refills, Maintenance, 05/06/20 14:07:00 EDT, Powder, [facility], 1 puffs Inhalation 2 [...] capsule, 0 Refills, Maintenance, 04/01/21 16:20:00 EDT, [facility], 176, cm, 03/20/21 6:57:00 [...] 01/06/20 13:04:00 EST, Dry Weight Start Date: 6/16/20 Status: Ordered One Touch Ultra Test Strips [...] 02/12/21 8:21:00 EDT, Route to Pharmacy Electronically, [facility], 176, cm, 12/22/20 10:41:00 [...] with no history of insulin use(Confirmed) Active 52422; repeat 2022 2Colonoscopy 2013 polyp, repeat 2018 3EGD 2014 positive for gastroparesis. 4egd 2003 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 5upper endo 2014 6admitted [facility] 2009 7s/p left tkr 2011 Diagnosis Diagnosis Type Effective Dates Health Status Clini ciro Service Informant Sore throat Discharge Diagnosis 06/08/21 Social History Social History Type Response Smoking Status Former smoker; Other : quit 1989; entered on: 02/26/18 Sex
--- OUTSIDE RECORDS SUMMARY | 2024-10-12 12:36 | XMS_ITS | Continuity of Care Document ---
Author Organization [facility] Zackery lt Address [address] [place] [address]- Care Team Providers Care Assistant Mechanic Name Role Phone Adeel Fountain MD Primary Care Physician Encounter [facility] [place] [facility] Date(s): 06/21/23 - 06/28/23 [facility] Adult [address] [place] [address]- Attending Physician: Not on Staff, Attending MD Allergies, Adverse Reactions, Alerts Substance Reaction Severity Status morphine 1 don't want it Active Percocet 5/325 2 makes me feel like pulling skin off Active 1pt feels like taking his skin off when given morphine 2pt feels like taking his skin off when on percocet Immunizations Given and Recorded Vaccine Date Status Refusal Reason [id number] 12y+ bivalent booster vax 12/13/22 Given pneumococcal [...] 12/21/21 11:37:00 EST, Route to Pharmacy Electronically, [id number], [facility] ([place]), 176, cm, 10/26/21 9:28:00 EST, H... Start [...] Maintenance, 04/28/2210:41:00 EDT, Route to Pharmacy Electronically, [facility], 175, cm, 02/11/22 2:26:00 [...] 0, 0, 09/17/06 2:07:12, Print RENETTA Number, [id number], Constant Indicator Start Date: 09/17/06 Status: Ordered Farxiga 5 mg oral tablet 1 tablet = 5 mg, By Mouth, Daily, # 90 tablet, 3 Refills, Maintenance, 12/13/22 14:14:00 EST, Tablet, [facility], Partial fill upon patient [...] Gm, 1 Refills, Maintenance, 02/16/23 10:19:00 EDT, [place], [facility], Partial fill upon patient [...] 12/21/21 11:37:00 EST, [facility]), 176, cm, 10/26/21 9:28:00 EST, Height, 110.6, kg, 10/27/20 13:48:00 EST, Dry Weight Start Date: 12/21/21 Status: Ordered Metamucil Powder By Mouth, Daily at bedtime, 0 Refills, Maintenance, 05/08/13 11:48:10 EDT Start Date: 05/08/13 Status: Ordered montelukast 10 mg oral tablet 1, tablet, By Mouth, Daily, # 90 tablet, Refills 3, Tot. Refills 3, 03/10/23 10:02:00 EDT, Route toPharmacy Electronically, [facility], 175, cm, 02/16/23 9:32:00 EDT, Height, 108, kg, 02/11/22 2:26:00 EDT, Dry Weight Start Date: 03/10/23 Status: Ordered omeprazole 20 mg oral enteric coated capsule 1 capsule, By Mouth, Daily, # 90 capsule, 2 Refills, Maintenance, 05/23/23 11:48:00 EDT, [facility], 175, cm, 05/09/23 12:38:00 EDT, Height, 109.6, kg, 05/09/23 12:38:00 EDT, Dry Weight Start Date: 05/23/23 Status: Ordered Ozempic 2 mg/3 mL (0.25 mg or 0.5 mg dose) subcutaneous solution = 0.5 mg, Subcutaneous Injection, Every week, E11.9 diabetes type 2, # 3 mL, 5 Refills, Maintenance, 06/01/23 9:51:00 EDT, [facility], Partial fill upon [...] EST, Tablet, [facility] ([place]), 1 tablet By Mouth Daily,x90 days, 176, [...] 2003 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 6upper endo 2014 7admitted [facility] 2009 8s/p left tkr 2011 Social History Social History Type Response Smoking Status Former smoker, quit more than 30 days ago; Other: quit in 1989; entered on: 05/09/23 Sex Note * Ariella Huddleston RN: PERFORM, SIGN, VERIFY Adeel Fountain MD: SIGN Event Display: Clinical Summary Authored Date: Patient: BONIFACIO REDDY Age: 78 years Sex: Male : 1945 Associated Diagnoses: None Author: Ariella Huddleston RN Visit Information Type of Visit Action Taken: Patient came in with a question of having issue with his Glucometer, freestyle Lite Brand. Pt demonstrated how he has been checking his glucose using this meter. Patient did everything correctly. Pt has placed test strip in the meter and pricked his finger after cleaning with alcohol swab and allowing to dry. The only incorrect way was how he placed the end of the test strip in the drop of blood and this iswhy he was not able to get a glucose reading. Pt was reminded./educated that, in order to get uptake of the blood sample onto the test strip is to gently hold the tip of the test strip over the blood sample and it will update the sample and start the reading. When we did check the correct way.. and it provided a reading. pt report's he is all set and has no other questions or concerns a this time. . . Patient Care team information Care Team Personnel [...] Role: Primary Care Nurse Address: Address: [address] [place] [address]- [place] Name: Margo Wilkins NP Position: [facility] Outreach Member Role: Primary Care Nurse Address: Address: [address] [place] [address]- [place] Name: Adeel Fountain MD Position: [facility] Physician - Primary Care Member Role: PCP Address: Address: [address] [place] [address]- [place] Name: Mindy Santiago RN Position: [facility] RN Member Role: Primary Care Nurse Name: Ramón Olivo MD Position: [facility] Physician - Infectious Disease Member Role: Lifetime Consulting Physician Address: Address: [address] [place] [address] [place] [address]- [place] Care Team Related Persons Name: RICHARD REDDY Address: home [address] [place] [address]
--- OUTSIDE RECORDS SUMMARY | 2024-10-12 12:36 | XMS_ITS | Continuity of Care Document ---
Author Organization [facility] Zackery lt Address [address] [place] [address]- Care Team Providers Care Lithographic Artist Name Role Phone Adeel Fountain MD Primary Care Physician [place] [facility] [place] 12[place]22 [facility] Adult [address] [place] [address]- Allergies, Adverse Reactions, Alerts Substance Reaction Severity [...] Note: ADRY 4Admin Note: Biomedical Jon [facility] [place] 5Admin Note: BIOMEDICAL JON 6Admin Note: GIVEN [...] 12/21/21 11:37:00 EST, Route to Pharmacy Electronically, [id number], [facility]), 176, cm, 10/26/21 9:28:00 EST, H... Start Date: 12/21/21 Status: Ordered azithromycin 250 mg oral tablet See Instructions, Take 2 tablets on day 1 and 1 tablet daily for next 4 days, # 6 tablet, 0 Refills, Maintenance, 08/31/22 13:38:00 EDT, Tablet, [facility], Partial fill upon patient request if the [...] 11:37:00 EST, Tablet, [facility] ([place]), Partial fill upon patient request if the prescription is for aschedule II opioid drug., 176, cm, 10/26/21 9:28:00... Start Date: 12/21/21 Status: Ordered diltiazem 300 mg/24 hours oral capsule, extended release 300 mg, 1, capsule, By Mouth, Daily, # 90 capsule, Refills 3, Tot. Refills 3, Maintenance, 04/28/2210:41:00 EDT, Route to Pharmacy Electronically, [facility], 175, cm, 02/11/22 2:26:00 EDT, [...] 0, 0, 09/17/06 2:07:12, Print RENETTA Number, [id number], Constant Indicator Start Date: 09/17/06 Status: Ordered [...] 11:36:00 EST, Powder, [facility] ([place]), 1 puffs Inhalation 2 times a day,x90 [...] capsule, 1 Refills, Maintenance, 12/21/21 11:37:00 EST, [facility] ([place]), 176, cm, 10/26/21 9:28:00 EST, Height, 110.6, kg, 10/27/20 13:48:00 EST, Dry Weight Start Date: 12/21/21 Status: Ordered Metamucil Powder By Mouth, Daily at bedtime, 0 Refills, Maintenance, 05/08/13 11:48:10 EDT Start Date: 05/08/13 Status: Ordered metFORMIN 500 mg oral tablet 1 tablet = 500 mg, By Mouth, 2 times a day, # 180 tablet, 1 Refills, Maintenance, 10/19/22 14:49:00EST, Tablet, [facility], 175, cm, 09/28/22 10:09:00 EST, Height, 108, kg, 02/11/22 2:26:00 EDT, Dry Weight Start Date: 10/19/22 Stop Date: 04/17/23 Status: Ordered metFORMIN 500 mg oral tablet 1 tablet = 500 mg, By Mouth, 2 times a day, for 90 days, # 180 tablet, 1 Refills, Hard Stop 12/10/22 8:47:00 EST, 06/13/22 8:47:00 EDT, Tablet, [facility] ([place]), 176, cm, 10/26/21 9:28:00 EST, Height, 110.6, kg, 10/27/20 13:48:00 EST,... Start Date: 06/13/22 Stop Date: 12/10/22 Status: Ordered montelukast 10 mg oral tablet 1, tablet, By Mouth, Daily, # 90 tablet, Refills 3, Tot. 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 6upper endo 2014 7admitted [facility] 2009 8s/p left tkr 2011 Social History Social History Type Response Smoking Status Former smoker; Other : quit 1989; entered on: 02/26/18 Sex Patient Care team information Care Team Personnel Name: Sujey Pereira RN Position: [facility] RN Member Role: Primary Care Nurse Name: Nickie Calvo RN Position: [facility] SN RN Member Role: Primary Care Nurse Name: Adeel Dominguez RN Position: [facility] RN Member Role: Primary Care Nurse Name: Tierra Meeks NP Position: [facility] PCO Associate Professional Member Role: Primary Care Nurse Name: Margo Wilkins NP Position: [facility] Associate Professional Member Role: Primary Care Nurse Address: Address: [address] [place] [address] [place] [address]- Name: Adeel Fountain MD Position: [facility] Primary Care Physician Member Role: PCP Address: Address: [address] [place] [address]- [place] Name: Mindy Santiago RN Position: [facility] RN Member Role: Primary Care Nurse Name: Ramón Olivo MD Position: [facility] Infectious Disease MD Member Role: Lifetime Consulting Physician Address: Address: [address] [place] [address] [place] [address]- Care Team Related Persons Name: RICHARD REDDY Address: home [address] [place] [address]
--- OUTSIDE RECORDS SUMMARY | 2024-10-12 12:36 | XMS_ITS | Continuity of Care Document ---
Author Organization [facility] Zackery lt Address [address] [place] [address]- Care Team Providers Care Histology Supervisor Name Role Phone Adeel Fountian MD Primary Care Physician Encounter [facility] [place] Date(s): 07/07/23 - 08/06/23 [facility] [place] Adult [address] [place] [address]- Allergies, Adverse Reactions, Alerts Substance Reaction Severity Status Percocet 5/325 1 makes me feel like pulling skin off Active morphine 2 don't want it Active 1pt feels like taking his skin off when on percocet 2pt feels like taking his skin off when given morphine Immunizations Given and Recorded Vaccine Date Status Refusal Reason [id number] 12y+ bivalent booster vax 12/13/22 Given pneumococcal [...] Note: ADRY 4Admin Note: [facility]ical [facility] 5Admin Note: BIOMEDICAL JON 6Admin [...] 12/21/21 11:37:00 EST, Route to Pharmacy Electronically, [id number], [facility]), 176, cm, 10/26/21 9:28:00 EST, H... Start Date: 12/21/21 Status: Ordered cetirizine 10 mg oral tablet 1 tablet = 10 mg, By Mouth, Daily, # 90 tablet, 3 Refills, Maintenance, 04/20/23 13:44:00 EDT, Tablet, [facility], Partial fill upon patient request if the prescription is for a schedule II opioid drug., 175, cm, 04/12/23 15:36:00 EDT, Height... Start Date: 04/20/23 Status: Ordered Crestor 5 mg oral tablet 1 tablet = 5 mg, By Mouth, Daily, # 90 tablet, 2 Refills, Maintenance, 06/01/23 9:50:00 EDT, Tablet, [facility], Partial fill upon patient request if the prescription is for a schedule II opioid drug., 175, cm, 05/09/23 12:38:00 EDT, Height,... Start Date: 06/01/23 Status: Ordered diltiazem 300 mg/24 hours oral capsule, extended release 300 mg, 1, capsule, By Mouth, Daily, # 90 capsule, Refills 3, Tot. Refills 3, Maintenance, 07/26/2311:47:00 EDT, Route to Pharmacy Electronically, [facility], 175, cm, 06/16/23 [...] 0, 0, 09/17/06 2:07:12, Print RENETTA Number, [id number], Constant Indicator Start Date: 09/17/06 Status: Ordered Farxiga 5 mg oral tablet 1 tablet = 5 mg, By Mouth, Daily, # 90 tablet, 3 Refills, Maintenance, 12/13/22 14:14:00 EST, Tablet, [facility], Partial fill upon patient [...] Gm, 1 Refills, Maintenance, 02/16/23 10:19:00 EDT, [place], [facility], Partial fill upon patient [...] Order Pharmacy [facility]), 176, cm, 10/26/21 9:28:00 EST, Height, 110.6, kg, 10/27/20 13:48:00 EST, Dry Weight Start Date: 12/21/21 Status: Ordered Metamucil Powder By Mouth, Daily at bedtime, 0 Refills, Maintenance, 05/08/13 11:48:10 EDT Start Date: 05/08/13 Status: Ordered montelukast 10 mg oral tablet 1, tablet, By Mouth, Daily, # 90 tablet, Refills 1, Tot. Refills 1, 07/04/23 9:32:00 EDT, Route to Pharmacy Electronically, [facility], 175, cm, 06/16/23 9:25:00 EDT, Height, 109.6, kg, 05/09/23 12:38:00 EDT, Dry Weight Start Date: 07/04/23 Status: Ordered omeprazole 20 mg oral enteric coated capsule 1 capsule, By Mouth, Daily, # 90 capsule, 2 Refills, Maintenance, 05/23/23 11:48:00 EDT, [facility], 175, cm, 05/09/23 12:38:00 EDT, Height, 109.6, kg, 05/09/23 12:38:00 EDT, Dry Weight Start Date: 05/23/23 Status: Ordered Ozempic 2 mg/3 mL (0.25 mg or 0.5 mg dose) subcutaneous solution = 0.5 mg, Subcutaneous Injection, Every week, E11.9 diabetes type 2, # 3 mL, 5 Refills, Maintenance, 06/01/23 9:51:00 EDT, [facility], Partial fill upon [...] 11:36:00 EST, Tablet, [facility] ([place]), 1 tablet By Mouth Daily,x90 days, 176, [...] 2003 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 6upper endo 2014 7admitted [facility] 2009 8s/p left tkr 2011 Social History Social History Type Response Smoking Status Former smoker, quit more than 30 days ago; Other: quit in 1989; entered on: 05/09/23 Sex Patient Care team information Care Team Personnel Name: Sujey Pereira RN Position: [facility] RN Member Role: Primary Care Nurse Name: Nickie Calvo RN Position: [facility] SN RN Member Role: Primary Care Nurse Name: Adeel Dominguez RN Position: [facility] RN Member Role: Primary Care Nurse Name: Tierra Meeks NP Position: Reference Physician Member Role: Primary Care Nurse Address: Address: [address] [place] [phone]- [place] Name: Margo Wilkins NP Position: [facility] Outreach Member Role: Primary Care Nurse Address: Address: [address] [place] [address]- [place] Name: Adeel Fountain MD Position: [facility] Physician - Primary Care Member Role: PCP Address: Address: [address] [place] [address]- [place] Name: Mindy Santiago RN Position: [facility] RN Member Role: Primary Care Nurse Name: Ramón Olivo MD Position: [facility] Physician - Infectious Disease Member Role: Lifetime Consulting Physician Address: Address: [address] [place] [address] [place] [address]- [place] Care Team Related Persons Name: RICHARD REDDY Address: [address] [address]
--- OUTSIDE RECORDS SUMMARY | 2024-10-12 12:36 | XMS_ITS | Continuity of Care Document ---
Author Organization [facility] Zackery lt Address [address] [place] [address]- Care Team Providers Care Safety Tech Name Role Phone Adeel Fountain MD Primary Care Physician [facility] Date[facility] 10[facility]22 - 11/28/22 [facility] Adult [address] [place] [address]- Allergies, Adverse Reactions, Alerts Substance Reaction Severity [...] 12/21/21 11:37:00 EST, Route to Pharmacy Electronically, [id number], [facility] 176, cm, 10/26/21 9:28:00 EST, H... Start Date: 12/21/21 Status: Ordered azithromycin 250 mg oral tablet See Instructions, Take 2 tablets on day 1 and 1 tablet daily for next 4 days, # 6 tablet, 0 Refills, Maintenance, 08/31/22 13:38:00 EDT, Tablet, [facility], Partial fill upon patient request if the [...] 11:37:00 EST, Tablet, [facility] ([place]), Partial fill upon patient request if the prescription is for aschedule II opioid drug., 176, cm, 10/26/21 9:28:00... Start Date: 12/21/21 Status: Ordered diltiazem 300 mg/24 hours oral capsule, extended release 300 mg, 1, capsule, By Mouth, Daily, # 90 capsule, Refills 3, Tot. Refills 3, Maintenance, 04/28/2210:41:00 EDT, Route to Pharmacy Electronically, [facility], 175, cm, 02/11/22 2:26:00 [...] 0, 0, 09/17/06 2:07:12, Print RENETTA Number, [id number], Constant Indicator Start Date: 09/17/06 Status: Ordered [...] capsule, 1 Refills, Maintenance, 12/21/21 11:37:00 EST, [facility]), 176, cm, 10/26/21 9:28:00 EST, Height, 110.6, kg, 10/27/20 13:48:00 EST, Dry Weight Start Date: 12/21/21 Status: Ordered Metamucil Powder By Mouth, Daily at bedtime, 0 Refills, Maintenance, 05/08/13 11:48:10 EDT Start Date: 05/08/13 Status: Ordered metFORMIN 500 mg oral tablet 1 tablet = 500 mg, By Mouth, 2 times a day, # 180 tablet, 1 Refills, Maintenance, 10/19/22 14:49:00EST, Tablet, [facility], 175, cm, 09/28/22 10:09:00 EST, Height, 108, kg, 02/11/22 2:26:00 EDT, Dry Weight Start Date: 10/19/22 Stop Date: 04/17/23 Status: Ordered metFORMIN 500 mg oral tablet 1 tablet = 500 mg, By Mouth, 2 times a day, for 90 days, # 180 tablet, 1 Refills, Hard Stop 12/10/22 8:47:00 EST, 06/13/22 8:47:00 EDT, Tablet, [facility] ([place]), 176, cm, 10/26/21 9:28:00 EST, Height, 110.6, kg, 10/27/20 13:48:00 EST,... Start Date: 06/13/22 Stop Date: 12/10/22 Status: Ordered montelukast 10 mg oral tablet 1, tablet, By Mouth, Daily, # 90 tablet, Refills 3, Tot. 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 6upper endo 2014 [facility] 8s/p left tkr 2011 Social History Social History Type Response Smoking Status Former smoker; Other : quit 1989; entered on: 02/26/18 Sex Patient Care team information Care Team Personnel Name: Sujey Pereira RN Position: [facility] RN Member Role: Primary Care Nurse Name: Nickie Calvo RN Position: [facility] SN RN Member Role: Primary Care Nurse Name: Adeel Dominguez RN Position: [facility] RN Member Role: Primary Care Nurse Name: Tierra Meeks NP Position: [facility] PCO Associate Professional Member Role: Primary Care Nurse Name: Margo Wilkins NP Position: [facility] Associate Professional Member Role: Primary Care Nurse Address: Address: [address] [place] [address] [place] [address]- Name: Adeel Fountain MD Position: [facility] Primary Care Physician Member Role: PCP Address: Address: [address] [place] [address]- [place] Name: Mindy aSntiago RN Position: [facility] RN Member Role: Primary Care Nurse Name: Ramón Olivo MD Position: [facility] Infectious Disease MD Member Role: Lifetime Consulting Physician Address: Address: [address] [place] [address] [place] [address]- Care Team Related Persons Name: RICHARD REDDY Address: home [address] [place] [address]
--- OUTSIDE RECORDS SUMMARY | 2024-10-12 12:36 | XMS_ITS | Continuity of Care Document ---
Author Organization [facility] Address [address] [address]- Care Team Providers Care Household Coordinator Name Role Phone Adeel Fountain MD Primary Care Physician [place] [facility] [place]15[place]20 - 07/22/20 [facility] [address] [address]- [place] Attending Physician: Rashmi Valencia MD Admitting Physician: Rashmi Valencia MD Referring Physician: Rashmi Valencia MD Allergies, Adverse Reactions, Alerts Substance Reaction [...] 02/26/18 9:54:20 EDT, Route to Pharmacy Electronically, [id number], [facility] Start Date: 02/26/18 Status: [...] 0, 0, 09/17/06 2:07:12, Print RENETTA Number, [phone], Constant Indicator Start Date: 09/17/06 Status: Ordered [...] 3 Refills, Maintenance, 05/06/20 14:07:00 EDT, Powder, [facility], 1 puffs Inhalation 2 times a day,x90 days, 175, cm, 05/06/20 13:45:00 EDT, Height, 113, kg, 01/06/20 13:04:00 EST, Dry Weight Start Date: 05/06/20 Stop Date: 05/01/21 Status: Ordered Lotrisone 0.05%-1% cream 1 application, Topically, 2 times a day, # 45 Gm, 0 Refills, Maintenance, 01/29/20 11:18:00 EDT, Cream, [facility], 1 application Topically 2 times [...] tablet, 3 Refills, Maintenance, 05/06/20 14:05:00EDT, Tablet, [facility], 175, cm, 05/06/20 13:45:00 EDT, Height, 113, kg, 01/06/20 13:04:00 EST, Dry Weight Start Date: 05/06/20 Stop Date: 05/01/21 Status: Ordered omeprazole 20 mg oral enteric coated capsule 1 capsule, By Mouth, Daily, # 90 capsule, 0 Refills, Maintenance, 03/25/20 14:11:00 EDT, [facility], 175, cm, 01/30/20 9:09:00 [...] 01/29/20 11:19:00 EDT, Route to Pharmacy Electronically, [facility], 172, cm, 01/29/20 11:00:00 [...] with no history of insulin use(Confirmed) Active 58290; repeat 2022 2Colonoscopy 2013 polyp, repeat 2018 3EGD 2014 positive for gastroparesis. 4egd 2003 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 5upper endo 2014 6admitted [facility] 2009 7s/p left tkr 2011 Social History Social History Type Response Smoking Status Former smoker; Other : quit 1989; entered on: 02/26/18 Sex
--- OUTSIDE RECORDS SUMMARY | 2024-10-12 12:36 | XMS_ITS | Continuity of Care Document ---
Author Organization [facility] Zackery lt Address [address] [place] [address]- Care Team Providers Care Security System Administrator Name Role Phone Adeel Fountain MD Primary Care Physician Encounter [facility] Date(s): 06/16/21 - 07/16/21 [facility] Adult [address] [place] [address]- Allergies, Adverse Reactions, Alerts Substance Reaction Severity [...] ADRY 4Admin Note: [facility]ical [facility] 5Admin Note: BIOMEDICAL JON 6Admin Note: GIVEN [...] 02/20/21 14:02:00 EDT, Route to Pharmacy Electronically, [id number], [facility], 176, cm, 02/20/21 13:51:00 EDT, Height, 110.... Start Date: 02/20/21 Status: Ordered Cipro 500 mg oral tablet 1 tablet = 500 mg, By Mouth, Every 12 hours, for 14 days, # 28 tablet, 0 Refills, Acute 07/30/21 11:07:00 EDT, 07/16/21 11:07:00 EDT, Tablet, [facility], Partial fill upon patient request if the [...] 0, 0, 09/17/06 2:07:12, Print RENETTA Number, [phone], Constant Indicator Start Date: 09/17/06 Status: Ordered [...] 3 Refills, Maintenance, 05/06/20 14:07:00 EDT, Powder, [facility], 1 puffs Inhalation [...] tablet, 3 Refills, Maintenance, 05/06/20 14:05:00EDT, Tablet, [facility], 175, cm, 05/06/20 [...] capsule, 0 Refills, Maintenance, 07/07/21 10:48:00 EDT, [facility], 176, cm, 06/24/21 [...] 02/12/21 8:21:00 EDT, Route to Pharmacy Electronically, [facility], 176, cm, 12/22/20 10:41:00 [...] with no history of insulin use(Confirmed) Active 84177; repeat 2022 2Colonoscopy 2013 polyp, repeat 2017 3EGD 2014 positive for gastroparesis. 4egd 2003 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 5upper endo 2014 6admitted [facility] 2009 7s/p left tkr 2012 Social History Social History Type Response Smoking Status Former smoker; Other : quit 1989; entered on: 02/26/18 Sex
--- OUTSIDE RECORDS SUMMARY | 2024-10-12 12:36 | XMS_ITS | Continuity of Care Document ---
Author Organization [facility] Address [address] [place] [address]- Care Team Providers Care Private Tutor Name Role Phone Adeel Fountain MD Primary Care Physician Encounter [facility] Date(s): 05/29/21 - 06/28/21 [facility] [address] [place] [address]- Attending Physician: Vibha Wallace Admitting Physician: Admtr, Vibha Referring Physician: Admtr, Ar8 Allergies, Adverse Reactions, [...] 02/20/21 14:02:00 EDT, Route to Pharmacy Electronically, [id number], [facility], 176, cm, 02/20/21 13:51:00 EDT, Height, 110.... Start Date: 02/20/21 Status: Ordered Bactrim DS 800 mg-160 mg oral tablet 1 tablet, By Mouth, Every 12 hours, for 14 days, # 28 tablet, 0 Refills, Acute 07/08/21 14:54:00 EDT, 06/24/21 14:54:00 EDT, Tablet, [facility]278, Partial fill upon patient request if the prescription is for a schedule II opioid drug., 1 tabl... Start Date: 06/24/21 Stop Date: 07/08/21 Status: Ordered CoQ10 = 300 mg, By [...] 0, 0, 09/17/06 2:07:12, Print RENETTA Number, [phone], Constant Indicator Start Date: 09/17/06 Status: Ordered [...] 3 Refills, Maintenance, 05/06/20 14:07:00 EDT, Powder, [facility]278, 1 puffs Inhalation [...] 07/07/21 15:10:00 EDT, 06/16/21 15:10:00 EDT, Tablet, [facility] 5278, Partial fill upon [...] tablet, 3 Refills, Maintenance, 05/06/20 14:05:00EDT, Tablet, [facility]278, 175, cm, 05/06/20 [...] capsule, 0 Refills, Maintenance, 04/01/21 16:20:00 EDT, [facility], 176, cm, 03/20/21 [...] 02/12/21 8:21:00 EDT, Route to Pharmacy Electronically, [facility], 176, cm, 12/22/20 [...] with no history of insulin use(Confirmed) Active 17467; repeat 2022 2Colonoscopy 2013 polyp, repeat 2017 3EGD 2014 positive for gastroparesis. 4egd 2003 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 5upper endo 2014 6admitted [facility] 2009 7s/p left tkr 2011 Social History Social History Type Response Smoking Status Former smoker; Other : quit 1989; entered on: 02/26/18 Sex
--- OUTSIDE RECORDS SUMMARY | 2024-10-12 12:36 | XMS_ITS | Continuity of Care Document ---
Author Organization [facility] Zackery lt Address [address] [place] [address]- Care Team Providers Care [place] Gold Attendant Name Role Phone Essie CHRISTINA, Adeel Nguyen Primary Care Physician [phone] [facility] Date[facility]s): 05/21/20 - 06/20/20 [facility] Adult [address] [place] [address]- [place] States Allergies, Adverse Reactions, Alerts Substance Reaction Severity [...] 6 08/29/09 Given Influenza Virus Vaccine (oldterm) 11/20/08 Given Influenza Virus Vaccine (oldterm) 7 09/22/07 Given Pneumococcal Vaccine (oldterm) 09/23/06 Given tetanus-diphtheria toxoids (Td) 11/21/00 Given 1Location History: [facility] 2Result Comment: [08/27/2015] HIGH DOSE 3Admin Note: ADRY 4Admin Note: Biomedical Jon [facility] 5Admin Note: BIOMEDICAL JON 6Admin Note: [...] 02/26/18 9:54:20 EDT, Route to Pharmacy Electronically, [id number], [facility] 5278 Start Date: 02/26/18 Status: Ordered [...] 0, 0, 09/17/06 2:07:12, Print RENETTA Number, [phone], Constant Indicator Start Date: 09/17/06 Status: Ordered [...] 3 Refills, Maintenance, 05/06/20 14:07:00 EDT, Powder, [facility], 1 puffs Inhalation 2 times a day,x90 days, 175, cm, 05/06/20 13:45:00 EDT, Height, 113, kg, 01/06/20 13:04:00 EST, Dry Weight Start Date: 05/06/20 Stop Date: 05/01/21 Status: Ordered Lotrisone 0.05%-1% cream 1 application, Topically, 2 times a day, # 45 Gm, 0 Refills, Maintenance, 01/29/20 11:18:00 EDT, Cream, [facility], 1 application Topically 2 times [...] Refills, Maintenance, 05/06/20 14:05:00EDT, Tablet, [facility], 175, cm, 05/06/20 13:45:00 EDT, Height, 113, kg, 01/06/20 13:04:00 EST, Dry Weight Start Date: 05/06/20 Stop Date: 05/01/21 Status: Ordered omeprazole 20 mg oral enteric coated capsule 1 capsule, By Mouth, Daily, # 90 capsule, 0 Refills, Maintenance, 03/25/20 14:11:00 EDT, [facility], 175, cm, 01/30/20 9:09:00 EDT, [...] [facility], 172, cm, 01/29/20 11:00:00 EDT,Height, [...] with no history of insulin use(Confirmed) Active 82620; repeat 2022 2Colonoscopy 2013 polyp, repeat 2017 3EGD 2014 positive for gastroparesis. 4egd 2003 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 5upper endo 2014 6admitted [facility] 2009 7s/p left tkr 2011 Social History Social History Type Response Smoking Status Former smoker; Other : quit 1989; entered on: 02/26/18 Sex
--- OUTSIDE RECORDS SUMMARY | 2024-10-12 12:36 | XMS_ITS | Continuity of Care Document ---
Author Organization [facility] Zackery lt Address [address] [place] [address]- Care Team Providers Care Production Stage Manager Name Role Phone Adeel Fountain MD Primary Care Physician [facility] Date(s): 07/20/24 - 08/19/24 [facility] Adult [address] [place] [address]- Allergies, Adverse Reactions, Alerts Substance Reaction Severity [...] RSV vaccine preF3, recombinant 10/05/23 Recorded SARS-CoV-2(COVID-19)mRNA-LNP vac([id number]) 09/22/23 Recorded influenza virus vaccine, inactivated 09/15/23 [...] influenza virus vaccine, inactivated 08/04/13 Goyo rded [id number] 12y+ bivalent booster vax 12/13/22 Given pneumococcal [...] [facility] 5Admin Note: [employer] JON 6Admin Note: GIVEN BY NATALIE 7Admin [...] 12/21/21 11:37:00 EST, Route to Pharmacy Electronically, [id number], [facility]), 176, cm, 10/26/21 9:28:00 EST, H... Start Date: 12/21/21 Status: Ordered cetirizine 10 mg oral tablet 1 tablet, By Mouth, Daily, # 90 tablet, 3 Refills, Maintenance, 07/03/24 15:50:00 EDT, [facility], 175, cm, 03/05/24 14:58:00 EDT, Height, 109.6, kg, 05/09/23 12:38:00 EDT, Dry Weight Start Date: 07/03/24 Status: Ordered Crestor 5 mg oral tablet 1 tablet = 5 mg, By Mouth, Daily, # 90 tablet, 1 Refills, Maintenance, 03/16/24 16:26:00 EDT, Tablet, [facility] # 50, Partial fill upon patient request if the prescription is for a schedule II opioid drug., 175, cm, 03/05/24 14:58:00 EDT, Height,... Start Date: 03/16/24 Status: Ordered DilTIAZem (Eqv-Cardizem CD) 300 mg/24 hours oral capsule, extended release 1 capsule, By Mouth, Daily, # 90 capsule, 1 Refills, Maintenance, 08/02/24 10:05:00 EDT, [facility], 175, cm, 03/05/24 [...] 0, 0, 09/17/06 2:07:12, Print RENETTA Number, [phone], Constant Indicator Start Date: 09/17/06 Status: Ordered [...] Gm, 1 Refills, Maintenance, 02/16/23 10:19:00 EDT, [place], [facility], Partial fill upon patient [...] 06/19/24 16:54:00 EDT, Route to Pharmacy Electronically, [facility], Partial fill upon patient requestif the prescription is for a schedule II opioid geovanna... Start Date: 06/19/24 Status: Ordered melatonin 10 mg oral capsule 1 capsule = 10 mg, By Mouth, Daily at bedtime, # 60 capsule, 1 Refills, Maintenance, 12/21/21 11:37:00 EST, [facility]), 176, cm, 10/26/21 9:28:00 EST, Height, [...] Refills, Maintenance, 03/09/24 13:03:00 EDT, [facility], 175, cm, 03/05/24 14:58:00 EDT, Height, 109.6, kg, 05/09/23 12:38:00 EDT, Dry Weight Start Date: 03/09/24 Status: Ordered Ozempic 2 mg/3 mL (0.25 mg or 0.5 mg dose) subcutaneous solution See Instructions, INJECT 0.5MG UNDER THE SKIN ONCE WEEKLY, # 3 mL, 12 Refills, Maintenance, 01/16/24 15:35:00 EST, [facility], 175, cm, 12/16/23 [...] 2014 7admitted [facility] 2009 8s/p left tkr 2011 Social History [...] Role: Primary Care Nurse Address: Address: [address] [place] [address]- [place] Name: Margo Wilkins NP Position: [facility] Outreach Member Role: Primary Care Nurse Address: Address: [address] [place] [address]- [place] Name: Adeel Fountain MD Position: [facility] Physician - Primary Care Member Role: PCP Address: Address: [address] [place] [address]- [place] Name: Mindy Santiago RN Position: [facility] RN Member Role: Primary Care Nurse Name: Ramón Olivo MD Position: [facility] Physician - Infectious Disease Member Role: Lifetime Consulting Physician Address: Address: [address] [place] [address] [place] [address]- [place] Care Team Related Persons Name: RICHARD REDDY Address: home [address] [place] [address]
--- OUTSIDE RECORDS SUMMARY | 2024-10-12 12:37 | XMS_ITS | Continuity of Care Document ---
Author Organization [facility] Zackery Address [address] [place] [address]- Care Team Providers Care Cell Support Operator Name Role Phone Adeel Fountain MD Primary Care Physician Encounter [facility] Date(s): 01/29/20 - 02/05/20 [facility] [address] [place] [address]- [place] Encounter Diagnosis Asthma(Discharge Diagnosis) - 01/29/20 Atopic dermatitis(Discharge Diagnosis) - 01/29/20 BPH with urinary obstruction(Discharge Diagnosis) - 01/29/20 Body mass index (BMI) of 33.0-33.9 in adult(Discharge Diagnosis) - 01/29/20 CAD (coronary artery disease)(Discharge Diagnosis) - 01/29/20 Gastroesophageal reflux disease with hiatal hernia(Discharge Diagnosis) - 01/29/20 Deficiency of testosterone biosynthesis(Discharge Diagnosis) - 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 Hypercholesterolemia(Discharge Diagnosis) - 01/29/20 Hyperglycemia(Discharge Diagnosis) - 01/29/20 Hypertension(Discharge Diagnosis) - 01/29/20 Attending Physician: Adeel Fountain MD Allergies, Adverse [...] Note: ADRY 4Admin Note: [facility] [place] 5Admin Note: BIOMEDICAL JON 6Admin Note: GIVEN [...] 02/26/18 9:54:20 EDT, Route to Pharmacy Electronically, [id number], [facility]274 Start Date: 02/26/18 Status: Ordered CoQ10 = [...] 0, 0, 09/17/06 2:07:12, Print RENETTA Number, [phone], Constant Indicator Start Date: 09/17/06 Status: Ordered [...] 0 Refills, Maintenance, 01/29/20 11:18:00 EDT, Cream, [facility], 1 application Topically 2 times [...] TAKE 1 CAPSULE BY MOUTH ONCE DAILY, [facility] Start Date: 09/04/19 Status: Ordered Patient's Own Meds Maintenance, artichoke extract 1 tab daily, 07/04/18 11:15:51 EDT Start Date: 07/04/18 Status: Ordered Singulair 10 mg oral tablet 10 mg, 1, tablet, By Mouth, Daily, # 90 tablet, Refills 3, Tot. Refills 3, Maintenance, 01/29/20 11:19:00 EDT, Route to Pharmacy Electronically, [facility], 172, cm, 01/29/20 11:00:00 EDT,Height, [...] Acute subdural hematoma(Confirmed) Active Thoracic spondylosis(Confirmed) Active 92373; repeat 2022 2Colonoscopy 2013 polyp, repeat 2017 3EGD 2014 positive for gastroparesis. 4egd 2003 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 5upper endo 2014 6admitted [facility] 2009 7s/p left tkr 2011 Diagnosis Diagnosis Type Effective Dates Health Status Clinical Service Informant Asthma Discharge Diagnosis 01/29/20 Atopic dermatitis Discharge Diagnosis 01/29/20 BPH with urinary obstruction Discharge Diagnosis 01/29/20 Body mass index (BMI) of 33.0-33.9 in adult Discharge Diagnosis 01/29/20 CAD (coronary artery disease) Discharge Diagnosis 01/29/20 Gastroesophageal reflux disease with hiatal hernia Discharge Diagnosis 01/29/20 Deficiency of testosterone biosynthesis Discharge Diagnosis 01/29/20 Hypercholesterolemia Discharge Diagnosis 01/29/20 Hyperglycemia Discharge Diagnosis 3/10/20 Hypertension Discharge Diagnosis 01/29/20 Vital Signs Most recent to oldest [Reference Range]: 1 2 Height 172 cm (01/29/20 11:32 AM) 172 cm (01/29/20 11:00 AM) Weight 117.9 kg (01/29/20 11:00 AM) Oxygen Saturation [94-100 %] 96 % (01/29/20 11:00 AM) Pulse Rate [55-90 bpm] 96 bpm *H* (01/29/20 11:00 AM) Body Mass Index [18.5-24.99] 39.85 *>HHI* (01/29/20 11:00 AM) Blood Pressure [90-138/55-84 mm Hg] 135/ 70mm Hg (01/29/20 11:32 AM) 142/70mm Hg *H* (01/29/20 11:00 AM) Respiratory Rate [16-30 br/min] 20 br/mi n (01/29/20 11:00 AM) Temperature [96.8-100.4 DegF] 98.7 DegF (01/29/20 11:00 AM) Mode of Delivery (Oxygen) Room air (01/29/20 11:00 AM) Blood pressure sites Arm, left (01/29/20 11:00 AM) Temperature Route Oral (01/29/20 11:00 AM) Weight Obtained Via Standing scale (01/29/20 11:00 AM) Social History Social History Type Response Smoking Status Former smoker; Other : quit 1989; entered on: 02/26/18 Sex
--- OUTSIDE RECORDS SUMMARY | 2024-10-12 12:37 | XMS_ITS | Continuity of Care Document ---
Author Organization [facility] Zackery lt Address [address] [place] [address]- Care Team Providers Care Corporate Legal Manager Name Role Phone Adeel Fountain MD Primary Care Physician [phone] Encounter [facility] Date(s): 07/03/24 - 08/02/24 [facility] Adult [address] [place] [address]- Allergies, Adverse Reactions, Alerts Substance Reaction Severity [...] RSV vaccine preF3, recombinant 10/05/23 Recorded SARS-CoV-2(COVID-19)mRNA-LNP vac([id number]) 09/22/23 Recorded influenza virus vaccine, inactivated 09/15/23 [...] influenza virus vaccine, inactivated 08/04/13 Goyo rded [id number] 12y+ bivalent booster vax 12/13/22 Given pneumococcal [...] Note: ADRY 4Admin Note: Biomedical [facility] of [facility] 5Admin Note: [employer] JON 6Admin Note: GIVEN BY NATALIE 7Admin [...] 12/21/21 11:37:00 EST, Route to Pharmacy Electronically, [id number], [facility]), 176, cm, 10/26/21 9:28:00 EST, H... Start Date: 12/21/21 Status: Ordered cetirizine 10 mg oral tablet 1 tablet, By Mouth, Daily, # 90 tablet, 3 Refills, Maintenance, 07/03/24 15:50:00 EDT, [facility] # [facility], 175, cm, 03/05/24 14:58:00 EDT, Height, 109.6, kg, 05/09/23 12:38:00 EDT, Dry Weight Start Date: 07/03/24 Status: Ordered Crestor 5 mg oral tablet 1 tablet = 5 mg, By Mouth, Daily, # 90 tablet, 1 Refills, Maintenance, 03/16/24 16:26:00 EDT, Tablet, [facility] # 50, Partial fill upon patient request if the prescription is for a schedule II opioid drug., 175, cm, 03/05/24 14:58:00 EDT, Height,... Start Date: 03/16/24 Status: Ordered DilTIAZem (Eqv-Cardizem CD) 300 mg/24 hours oral capsule, extended release 1 capsule, By Mouth, Daily, # 90 capsule, 1 Refills, Maintenance, 08/02/24 10:05:00 EDT, [facility] # [facility], 175, cm, 03/05/24 [...] 0, 0, 09/17/06 2:07:12, Print RENETTA Number, [id number], Constant Indicator Start Date: 09/17/06 Status: Ordered [...] Gm, 1 Refills, Maintenance, 02/16/23 10:19:00 EDT, [place], [facility], Partial fill upon [...] 06/19/24 16:54:00 EDT, Route to Pharmacy Electronically, [facility] # [facility], Partial fill upon patient requestif the prescription is for a schedule II opioid geovanna... Start Date: 06/19/24 Status: Ordered melatonin 10 mg oral capsule 1 capsule = 10 mg, By Mouth, Daily at bedtime, # 60 capsule, 1 Refills, Maintenance, 12/21/21 11:37:00 EST, [facility]), 176, cm, 10/26/21 9:28:00 EST, Height, [...] capsule, 1 Refills, Maintenance, 03/09/24 13:03:00 EDT, [facility] # [facility], 175, cm, 03/05/24 14:58:00 EDT, Height, 109.6, kg, 05/09/23 12:38:00 EDT, Dry Weight Start Date: 03/09/24 Status: Ordered Ozempic 2 mg/3 mL (0.25 mg or 0.5 mg dose) subcutaneous solution See Instructions, INJECT 0.5MG UNDER THE SKIN ONCE WEEKLY, # 3 mL, 12 Refills, Maintenance, 01/16/24 15:35:00 EST, [facility] # [facility], [...] 2003 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 6upper endo 2014 7admitted [facility] 2009 8s/p left tkr 2011 Social [...] Role: Primary Care Nurse Address: Address: [address] [place] [address]- [place] Name: Margo Wilkins NP Position: [facility] Outreach Member Role: Primary Care Nurse Address: Address: [address] [place] [address]- [place] Name: Adeel Fountain MD Position: [facility] Physician - Primary Care Member Role: PCP Address: Address: [address] [place] [address]- [place] Name: Mindy Santiago RN Position: [facility] RN Member Role: Primary Care Nurse Name: Ramón Olivo MD Position: [facility] Physician - Infectious Disease Member Role: Lifetime Consulting Physician Address: Address: [address] [place] [address] [place] [address]- [place] Care Team Related Persons Name: RICHARD REDDY Address: home [address] [place] [id number]
--- OUTSIDE RECORDS SUMMARY | 2024-10-12 12:37 | XMS_ITS | Continuity of Care Document ---
Author Organization [facility] Zackery lt Address [address] [place] [address]- Care Team Providers Care Screen Making Technician Name Role Phone Adeel Fountain MD Primary Care Physician [place] [facility] [place](s): 07/26/23 - 08/25/23 [facility] Adult [address] [place] [address]- Allergies, Adverse Reactions, Alerts Substance Reaction Severity Status Percocet 5/325 1 makes me feel like pulling skin off Active morphine 2 don't want it Active 1pt feels like taking his skin off when on percocet 2pt feels like taking his skin off when given morphine Immunizations Given and Recorded Vaccine Date Status Refusal Reason [id number] 12y+ bivalent booster vax 12/13/22 Given pneumococcal [...] Note: ADRY 4Admin Note: Biomedical Jon of [facility] [place] 5Admin Note: BIOMEDICAL JON [...] 12/21/21 11:37:00 EST, Route to Pharmacy Electronically, [id number], [facility]), 176, cm, 10/26/21 9:28:00 EST, H... Start Date: 12/21/21 Status: Ordered cetirizine 10 mg oral tablet 1 tablet = 10 mg, By Mouth, Daily, # 90 tablet, 3 Refills, Maintenance, 04/20/23 13:44:00 EDT, Tablet, [facility] # [facility], Partial fill upon patient request if the prescription is for a schedule II opioid drug., 175, cm, 04/12/23 15:36:00 EDT, Height... Start Date: 04/20/23 Status: Ordered Crestor 5 mg oral tablet 1 tablet = 5 mg, By Mouth, Daily, # 90 tablet, 2 Refills, Maintenance, 06/01/23 9:50:00 EDT, Tablet, [facility] # 50, Partial fill upon patient request if the prescription is for a schedule II opioid drug., 175, cm, 05/09/23 12:38:00 EDT, Height,... Start Date: 06/01/23 Status: Ordered diltiazem 300 mg/24 hours oral capsule, extended release 300 mg, 1, capsule, By Mouth, Daily, # 90 capsule, Refills 3, Tot. Refills 3, Maintenance, 07/26/2311:47:00 EDT, Route to Pharmacy Electronically, [facility] # [facility], 175, cm, 06/16/23 [...] 0, 0, 09/17/06 2:07:12, Print RENETTA Number, [id number], Constant Indicator Start Date: 09/17/06 Status: Ordered [...] Gm, 1 Refills, Maintenance, 02/16/23 10:19:00 EDT, [place], [facility], Partial fill [...] 12/21/21 11:37:00 EST, [facility]), 176, cm, 10/26/21 9:28:00 EST, Height, 110.6, kg, 10/27/20 13:48:00 EST, Dry Weight Start Date: 12/21/21 Status: Ordered Metamucil Powder By Mouth, Daily at bedtime, 0 Refills, Maintenance, 05/08/13 11:48:10 EDT Start Date: 05/08/13 Status: Ordered montelukast 10 mg oral tablet 1, tablet, By Mouth, Daily, # 90 tablet, Refills 1, Tot. Refills 1, 07/04/23 9:32:00 EDT, Route to Pharmacy Electronically, [facility] # [facility], 175, cm, 06/16/23 9:25:00 EDT, Height, 109.6, kg, 05/09/23 12:38:00 EDT, Dry Weight Start Date: 07/04/23 Status: Ordered omeprazole 20 mg oral enteric coated capsule 1 capsule, By Mouth, Daily, # 90 capsule, 2 Refills, Maintenance, 05/23/23 11:48:00 EDT, [facility] # [facility], 175, cm, 05/09/23 12:38:00 EDT, Height, 109.6, kg, 05/09/23 12:38:00 EDT, Dry Weight Start Date: 05/23/23 Status: Ordered Ozempic 2 mg/3 mL (0.25 mg or 0.5 mg dose) subcutaneous solution = 0.5 mg, Subcutaneous Injection, Every week, E11.9 diabetes type 2, # 3 mL, 5 Refills, Maintenance, 06/01/23 9:51:00 EDT, [facility] # [facility], Partial fill upon [...] 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 6upper endo 2014 7admitted [facility] 2009 8s/p left tkr 2011 Social History Social History Type Response Smoking Status Former smoker, quit more than 30 days ago; Other: quit in 1989; entered on: 05/09/23 Sex Patient Care team information Care Team Personnel Name: Sujey Pereira RN Position: [facility] RN Member Role: Primary Care Nurse Name: Nickie Calvo RN Position: [facility] SN RN Member Role: Primary Care Nurse Name: Adeel Dominguez RN Position: [facility] RN Member Role: Primary Care Nurse Name: Tierra Meeks NP Position: Reference Physician Member Role: Primary Care Nurse Address: Address: [address] [place] [address]- [place] Name: Margo Wilkins NP Position: [facility] Outreach Member Role: Primary Care Nurse Address: Address: [address] [place] [address]- [place] Name: Adeel Fountain MD Position: [facility] Physician - Primary Care Member Role: PCP Address: Address: [address] [place] [address]- [place] Name: Mindy Santiago RN Position: [facility] RN Member Role: Primary Care Nurse Name: Ramón Olivo MD Position: [facility] Physician - Infectious Disease Member Role: Lifetime Consulting Physician Address: Address: [address] [place] [address] [place] [address]- [place] Care Team Related Persons Name: RICHARD REDDY Address: [address] [address]
--- OUTSIDE RECORDS SUMMARY | 2024-10-12 12:37 | XMS_ITS | Continuity of Care Document ---
Author Organization [facility] Address [address] [place] [address]- Care Team Providers Care Exhibit Designer Name Role Phone Adeel Fountain MD Primary Care Physician [place] [facility](s): 01/06/20 - 01/13/20 [facility] [address] [place] [address]- [facility] Encounter Diagnosis URI (upper respiratory infection)(Discharge Diagnosis) - 01/06/20 Attending Physician: Bobby Zazueta MD Referring Physician: Adeel Fountain MD Allergies, [...] ADRY 4Admin Note: Biomedical [facility] of [facility] 5Admin Note: BIOMEDICAL JON 6Admin Note: GIVEN [...] 02/26/18 9:54:20 EDT, Route to Pharmacy Electronically, [id number], [facility] Start Date: 02/26/18 Status: Ordered azithromycin 250 mg oral tablet 1 pack/packet, By Mouth, Once, # 6 tablet, 0 Refills, Soft Stop, 01/11/20 14:45:00 EST, Tablet, [facility], 172, cm, 01/11/20 14:28:00 EST, Height, 113, kg, 01/06/20 13:04:00 EST, Dry Weight Start Date: 01/11/20 Status: Ordered azithromycin 250 mg oral tablet 1 pack/packet, By Mouth, Once, # 6 tablet, 0 Refills, Soft Stop, 01/11/20 14:45:00 EST, Tablet, [facility], 172, cm, 01/11/20 14:28:00 [...] 0, 0, 09/17/06 2:07:12, Print RENETTA Number, [phone], Constant Indicator Start Date: 09/17/06 Status: Ordered [...] 11 Refills, Maintenance, 12/26/19 10:25:00 EST, Aerosol, [facility], 172, cm, 12/26/19 10:08:00 [...] TAKE 1 CAPSULE BY MOUTH ONCE DAILY, [facility] Start Date: 09/04/19 Status: [...] Acute subdural hematoma(Confirmed) Active Thoracic spondylosis(Confirmed) Active 22222; repeat 2022 2Colonoscopy 2013 polyp, repeat 2018 3EGD 2014 positive for gastroparesis. 4egd 2003 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 5[facility] 2011 Diagnosis Diagnosis Type Effective Dates Health Status Clinical Service Informant URI (upper respiratory infection) Discharge Diagnosis 01/06/20 Vital Signs Most recent to oldest [Reference Range]: 1 Height 172 cm (01/06/20 1:04 PM) Weight 113 kg (01/06/20 1:04 PM) Oxygen Saturation [94-100 %] 97 % (01/06/20 1:04 PM) Pulse Rate [55-90 bpm] 90 bpm (01/06/20 1:04 PM) Body Mass Index [18.5-24.99] 38.2 *>HHI* (01/06/20 1:04 PM) Blood Pressure [90-138/55-84 mm Hg] 147/ 84mm Hg *H* (01/06/20 1:04 PM) Respiratory Rate [16-30 br/min] 18 br/mi n (01/06/20 1:04 PM) Temperature [96.8-100.4 DegF] 98.2 DegF (01/06/20 1:04 PM) Mode of Delivery (Oxygen) Room air (01/06/20 1:04 PM) Blood pressure sites Arm, right (01/06/20 1:04 PM) Temperature Route Oral (01/06/20 1:04 PM) Dry Weight 113 kg (01/06/20 1:04 PM) Weight Obtained Via Standing scale (01/06/20 1:04 PM) Dry Weight Obtained Via Standing scale (01/06/20 1:04 PM) Social History Social History Type Response Smoking Status Former smoker; Other : quit 1989; entered on: 02/26/18 Sex
--- OUTSIDE RECORDS SUMMARY | 2024-10-12 12:37 | XMS_ITS | Continuity of Care Document ---
Author Organization [facility] Zackery lt Address [address] [place] [address]- Care Team Providers Care Recovery Auditor Name Role Phone Essie CHRISTINA, Adeel Nguyen Primary Care Physician [phone] Encounter [facility] Date(s): 09/30/22 - 10/30/22 [facility] Adult [address] [place] [address]- Allergies, Adverse Reactions, Alerts Substance Reaction Severity [...] Note: ADRY 4Admin Note: Biomedical Jon of [facility] 5Admin Note: BIOMEDICAL JON [...] 12/21/21 11:37:00 EST, Route to Pharmacy Electronically, [id number], [facility]), 176, cm, 10/26/21 9:28:00 EST, H... Start Date: 12/21/21 Status: Ordered azithromycin 250 mg oral tablet See Instructions, Take 2 tablets on day 1 and 1 tablet daily for next 4 days, # 6 tablet, 0 Refills, Maintenance, 08/31/22 13:38:00 EDT, Tablet, [facility], Partial fill upon patient request if the [...] 3 Refills, Maintenance, 12/21/21 11:37:00 EST, Tablet, [facility]), Partial fill upon patient request if the prescription is for aschedule II opioid drug., 176, cm, 10/26/21 9:28:00... Start Date: 12/21/21 Status: Ordered diltiazem 300 mg/24 hours oral capsule, extended release 300 mg, 1, capsule, By Mouth, Daily, # 90 capsule, Refills 3, Tot. Refills 3, Maintenance, 04/28/2210:41:00 EDT, Route to Pharmacy Electronically, [facility], 175, cm, 02/11/22 2:26:00 [...] 0, 0, 09/17/06 2:07:12, Print RENETTA Number, [id number], Constant Indicator Start Date: 09/17/06 Status: Ordered [...] 11:36:00 EST, Powder, [facility] ([place]), 1 puffs Inhalation 2 [...] capsule, 1 Refills, Maintenance, 12/21/21 11:37:00 EST, [facility] ([place]), 176, cm, 10/26/21 9:28:00 EST, Height, 110.6, kg, 10/27/20 13:48:00 EST, Dry Weight Start Date: 12/21/21 Status: Ordered Metamucil Powder By Mouth, Daily at bedtime, 0 Refills, Maintenance, 05/08/13 11:48:10 EDT Start Date: 05/08/13 Status: Ordered metFORMIN 500 mg oral tablet 1 tablet = 500 mg, By Mouth, 2 times a day, # 180 tablet, 1 Refills, Maintenance, 10/19/22 14:49:00EST, Tablet, [facility], 175, cm, 09/28/22 10:09:00 EST, Height, 108, kg, 02/11/22 2:26:00 EDT, Dry Weight Start Date: 10/19/22 Stop Date: 04/17/23 Status: Ordered metFORMIN 500 mg oral tablet 1 tablet = 500 mg, By Mouth, 2 times a day, for 90 days, # 180 tablet, 1 Refills, Hard Stop 12/10/22 8:47:00 EST, 06/13/22 8:47:00 EDT, Tablet, [facility] 176, cm, 10/26/21 9:28:00 EST, Height, 110.6, kg, 10/27/20 13:48:00 EST,... Start Date: 06/13/22 Stop Date: 12/10/22 Status: Ordered montelukast 10 mg oral tablet 1, tablet, By Mouth, Daily, # 90 tablet, Refills 3, Tot. Refills 3, 12/21/21 11:37:00 EST, Route toPharmacy Electronically, [facility] ([place]), 176, cm, 10/26/21 9:28:00 EST, [...] days, # 10 tablet, 0 Refills, Acute 11/03/22 15:01:00 EST, 10/29/22 15:01:00 EST, Tablet, [facility], Partial fill upon patient request if the prescription is for a schedule II opioid drug.,... Start Date: 10/29/22 Stop Date: 11/03/22 Status: Ordered Spine and Sports Spine and Sports, See Instructions, # 20 each, Refills 0, Tot. Refills 0, Maintenance, Eval and treata 20 visits, 12/14/19 11:35:00 EST, Compound Start Date: 12/14/19 Status: Ordered Tessalon Perles 100 mg oral capsule 1 capsule = 100 mg, By Mouth, 3 times a day, for 7 days, # 21 capsule, 0 Refills, Acute 11/05/22 15:01:00 EST, 10/29/22 15:01:00 EST, Capsule, [facility], Partial fill upon patient requestif the prescription is for a schedule II opioid geovanna... Start Date: 10/29/22 Stop Date: 11/05/22 Status: Ordered testosterone 20.25 mg/1.25 g (1.62%) transdermal gel 1 pack/packet, Topically, Daily in AM, apply to clean, dry, intact skin, 0 Refills, Maintenance, 01/29/20 11:14:00 EDT, Gel Start Date: 01/29/20 Status: Ordered Zestoretic 25 mg-20 mg oral tablet 1 tablet, By Mouth, Daily, # 90 tablet, 3 Refills, Maintenance, 12/21/21 11:36:00 EST, Tablet, [facility] ([place]), 1 tablet By Mouth [...] 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 6upper endo 2014 7admitted [facility] 2009 8s/p left tkr 2011 Social History Social History Type Response Smoking Status Former smoker; Other : quit 1989; entered on: 02/26/18 Sex Patient Care team information Care Team Personnel Name: Sujey Pereira RN Position: [facility] RN Member Role: Primary Care Nurse Name: Nickie Calvo RN Position: [facility] RN Member Role: Primary Care Nurse Name: Adeel Dominguez RN Position: [facility] RN Member Role: Primary Care Nurse Name: Tierra Meeks NP Position: [facility] PCO Associate Professional Member Role: Primary Care Nurse Name: Margo Wilkins NP Position: [facility] Associate Professional Member Role: Primary Care Nurse Address: Address: [address] [place] [address] [place] [address]- [place] Name: Adeel Fountain MD Position: [facility] Primary Care Physician Member Role: PCP Address: Address: [address] [place] [address]- [place] Name: Mindy Santiago RN Position: [facility] RN Member Role: Primary Care Nurse Name: Ramón Olivo MD Position: [facility] Infectious Disease MD Member Role: Lifetime Consulting Physician Address: Address: [address] [place] [address] [place] [address]- Care Team Related Persons Name: RICHARD REDDY Address: home [address] [place] [address]
--- OUTSIDE RECORDS SUMMARY | 2024-10-12 12:37 | XMS_ITS | Continuity of Care Document ---
Author Organization [facility] Zackery lt Address [address] [place] [address]- Care Team Providers Care Cementing Bulk Material Operator Name Role Phone Adeel Fountain MD Primary Care Physician [phone] [place] [facility] 07/29[place]21 [facility] Adult [address] [place] [address]- Attending Physician: Daniel DIECAST MACHINE OPERATOR, Margo Carrera Allergies, Adverse Reactions, Alerts Substance [...] Note: ADRY 4Admin Note: Biomedical Jon of [facility] 5Admin Note: BIOMEDICAL JON 6Admin [...] 02/20/21 14:02:00 EDT, Route to Pharmacy Electronically, [id number], [facility], 176, cm, 02/20/21 13:51:00 EDT, Height, 110.... Start Date: 02/20/21 Status: Ordered Cipro 500 mg oral tablet 1 tablet = 500 mg, By Mouth, Every 12 hours, for 14 days, # 28 tablet, 0 Refills, Acute 07/30/21 11:07:00 EDT, 07/16/21 11:07:00 EDT, Tablet, [facility], Partial fill upon patient request if the [...] 0, 0, 09/17/06 2:07:12, Print RENETTA Number, [id number], Constant Indicator Start Date: 09/17/06 Status: Ordered [...] 3 Refills, Maintenance, 05/06/20 14:07:00 EDT, Powder, [facility], 1 puffs Inhalation [...] tablet, 3 Refills, Maintenance, 05/06/20 14:05:00EDT, Tablet, [facility], 175, cm, 05/06/20 [...] capsule, 0 Refills, Maintenance, 07/07/21 10:48:00 EDT, [facility], 176, cm, 06/24/21 [...] 02/12/21 8:21:00 EDT, Route to Pharmacy Electronically, [facility], 176, cm, 12/22/20 [...] with no history of insulin use(Confirmed) Active 23620; repeat 2022 2Colonoscopy 2013 polyp, repeat 2017 3EGD 2014 positive for gastroparesis. 4egd 2003 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 5upper endo 2014 6admitted [facility] 2009 7s/p left tkr 2011 Social History Social History Type Response Smoking Status Former smoker; Other : quit 1989; entered on: 02/26/18 Sex
--- OUTSIDE RECORDS SUMMARY | 2024-10-12 12:37 | XMS_ITS | Continuity of Care Document ---
Author Organization [facility] Zackery lt Address [address] [place] [address]- Care Team Providers Care Wire Worker Name Role Phone Adeel Fountain MD Primary Care Physician Encounter [facility] Date(s): 06/16/23 - 06/23/23 [facility] Adult [address] [place] [address]- Encounter Diagnosis Asthma(Discharge Diagnosis) - 06/16/23 Voice hoarseness(Discharge Diagnosis) - 06/16/23 Attending Physician: Amparo Weir NP Referring Physician: [...] and Recorded Vaccine Date Status Refusal Reason [id number] 12y+ bivalent booster vax 12/13/22 Given pneumococcal [...] [facility] 5Admin Note: [employer] JON 6Admin Note: GIVEN BY NATALIE 7Admin [...] 12/21/21 11:37:00 EST, Route to Pharmacy Electronically, [id number], [facility] ([place]), 176, cm, [...] Maintenance, 04/28/2210:41:00 EDT, Route to Pharmacy Electronically, [facility], 175, cm, 02/11/22 2:26:00 EDT, [...] 0, 0, 09/17/06 2:07:12, Print RENETTA Number, [id number], Constant Indicator Start Date: 09/17/06 Status: Ordered Farxiga 5 mg oral tablet 1 tablet = 5 mg, By Mouth, Daily, # 90 tablet, 3 Refills, Maintenance, 12/13/22 14:14:00 EST, Tablet, [facility], Partial fill upon patient request [...] Gm, 1 Refills, Maintenance, 02/16/23 10:19:00 EDT, [place], [facility], Partial fill upon patient request [...] capsule, 1 Refills, Maintenance, 12/21/21 11:37:00 EST, [facility] ([place]), 176, cm, 10/26/21 9:28:00 EST, Height, 110.6, kg, 10/27/20 13:48:00 EST, Dry Weight Start Date: 12/21/21 Status: Ordered Metamucil Powder By Mouth, Daily at bedtime, 0 Refills, Maintenance, 05/08/13 11:48:10 EDT Start Date: 05/08/13 Status: Ordered montelukast 10 mg oral tablet 1, tablet, By Mouth, Daily, # 90 tablet, Refills 3, Tot. Refills 3, 03/10/23 10:02:00 EDT, Route toPharmacy Electronically, [facility], 175, cm, 02/16/23 9:32:00 EDT, Height, 108, kg, 02/11/22 2:26:00 EDT, Dry Weight Start Date: 03/10/23 Status: Ordered omeprazole 20 mg oral enteric coated capsule 1 capsule, By Mouth, Daily, # 90 capsule, 2 Refills, Maintenance, 05/23/23 11:48:00 EDT, [facility], 175, cm, 05/09/23 12:38:00 EDT, Height, 109.6, kg, 05/09/23 12:38:00 EDT, Dry Weight Start Date: 05/23/23 Status: Ordered Ozempic 2 mg/3 mL (0.25 mg or 0.5 mg dose) subcutaneous solution = 0.5 mg, Subcutaneous Injection, Every week, E11.9 diabetes type 2, # 3 mL, 5 Refills, Maintenance, 06/01/23 9:51:00 EDT, [facility], Partial fill upon patient [...] 3 Refills, Maintenance, 04/12/23 16:08:00 EDT, Powder, [facility], Partial fill upon patient [...] barretts 6upper endo 2014 7admitted [facility] 2009 8s/p left tkr 2011 Diagnosis Diagnosis Type Effective Dates Health Status Clinical Service Informant Asthma Discharge Diagnosis 06/16/23 Voice hoarseness Discharge Diagnosis 06/16/23 Vital Signs Most recent to oldest [Reference Range]: 1 Height 175 cm (06/16/23 9:25 AM) Weight 105.5 kg (06/16/23 9:25 AM) Oxygen Saturation [94-100 %] 97 % (06/16/23 9:25 AM) Pulse Rate [55-90 bpm] 74 bpm (06/16/23 9:25 AM) Body Mass Index [18.5-24.99 kg/m2] 34.45 kg/m2 *>HHI* (06/16/23 9:25 AM) Blood Pressure [90-138/55-84 mm Hg] 130/ 74mm Hg (06/16/23 9:25 AM) Temperature [96.8-100.4 DegF] 98.0 DegF (06/16/23 9:25 AM) Blood pressure sites Arm, left (06/16/23 9:25 AM) Social History Social History Type Response Smoking Status Former smoker, quit more than 30 days ago; Other: quit in 1989; entered on: 05/09/23 Sex Note * Erica Patrick: PERFORM, SIGN, VERIFY Event Display: Patient Education/Instruction Authored Date: [id number] [facility] *BMP So Elier Watkins Clinical Summary Name BONIFACIO REDDY Age 78 Years 1945 PCP Essie CHRISTINA, Adeel Nguyen PCP Visit Date 06/16/2023 09:17:00 Additional Instructions: Scheduled Appointments?? Future Appointments ?*Integrated??Behav??So??Elier ?Phone:??--?Fax:??-- ?Appt. Date:??07/14/2023?9:30 AM ?Scheduled Provider:??Sujey Arellano Follow-Up Instructions ?? With: Address: When: Carmella LUCAS, Amparo Bill [address] [place] [id number] [facility] (1) In 3 months Diagnosis Medications: Please continue your medications until treatment is completed or stopped by your provider. Discuss any questions related to medications with your provider. Medications to Continue with No Changes [facility], [address] [place], [place] [id number], [phone] Cetirizine (cetirizine 10 mg oral tablet) 1 tab(s) Oral Daily. Refills: 3. Next Dose: Durable Medical Equipment (Freestyle Lite Test Strips) 90 days DM 2 E11.9 check blood sugar once a day. Refills: 11. Next Dose: These medications were not printed or sent to your pharmacy Albuterol (albuterol 0.083% inhalation solution) 3 Milliliter Nebulized inhalation once. in office.Refills: 0. Next Dose: Albuterol (albuterol CFC free 90 mcg/inh inhalation aerosol) 2 puff(s) Inhalation every 6 hours. Refills: 11. Next Dose: Amoxicillin-Clavulanate (Augmentin 875 mg-125 mg oral tablet) 1 tab(s) Oral every 12 hours for 7 Days. Refills: 0. Next Dose: Aspirin (Ecotrin Low Strength Adult 81 mg oral enteric coated tablet) 1 tab(s) Oral Daily. Next Dose: dapagliflozin (Farxiga 5 mg oral [...] sugar once a day.Refills: 0. Next Dose: Finasteride (finasteride 5 mg [...] tab(s) Oral Daily. Refills: 3. Next Dose: Omeprazole (omeprazole 20 mg oral enteric coated capsule) 1 capsule Oral Daily. Refills: 2. Next Dose: Psyllium (Metamucil Powder) Oral Daily at Bedtime. Next Dose: Pt.'s Own Meds (Patient's Own Meds) artichoke extract 1 tab daily. Next Dose: Rosuvastatin (Crestor 5 mg oral tablet) 1 tab(s) Oral Daily. Refills: 2. Next Dose: semaglutide (Ozempic 2 mg/3 mL (0.25 mg or 0.5 mg dose) subcutaneous solution) 0.5 Milligram Subcutaneous Injection every week. E11.9 diabetes type 2. Refills: 5. Next Dose: Testosterone (testosterone 20.25 mg/1.25 g (1.62%) transdermal gel) 1 pack/packet Topically Daily in the morning. apply to clean, dry, intact skin. Next Dose: Allergy Info:?? Percocet 5/325; morphine Medications Given This Visit Future Orders ?No future orders Vital Signs Height 175 cm Weight 105.5 kg BMI 34.45 kg/m2 Blood Pressure 130 mm Hg/74 mm Hg Temperature 98.0 DegF Pulse Rate 74 bpm Respiratory Rate 02 Sat Mode of Delivery 97 %/ You can now view a summary of your hospital visit from the comfort of your home through a free online portal called [employer]. [employer] is a website that allows you to securely view your medical information including discharge summary, medications and follow-up visits. ??You can alsosend a secure electronic message to your doctor???s office to request appointments, renew medications or just ask a question. You can enroll at [email or web address] or register during your next office [...] primary care provider, you may find a [facility] provider by calling [facility] at [phone]. For information about the plan of care [...] Team Personnel Name: Sujey Pereira RN Position: [facility] RN Member Role: Primary Care Nurse Name: Nickie Calvo RN Position: [facility] SN RN Member Role: Primary Care Nurse Name: Adeel Dominguez RN Position: [facility] RN Member Role: Primary Care Nurse Name: Tierra Meeks NP Position: Reference Physician Member Role: Primary Care Nurse Address: Address: [address] [place] [phone]- [place] Name: Margo Wilkins NP Position: [facility] Outreach Member Role: Primary Care Nurse Address: Address: [address] [place] [phone]- [place] Name: Adeel Fountain MD Position: [facility] Physician - Primary Care Member Role: PCP Address: Address: [address] [place] [phone]- [place] Name: Mindy Santiago RN Position: [facility] RN Member Role: Primary Care Nurse Name: Ramón Olivo MD Position: [facility] Physician - Infectious Disease Member Role: Lifetime Consulting Physician Address: Address: [address] [place] [address] [place] [address]- Care Team Related Persons Name: RICHARD REDDY Address: [address] [address]
--- OUTSIDE RECORDS SUMMARY | 2024-10-12 12:37 | XMS_ITS | Continuity of Care Document ---
Author Organization [facility] Zackery lt Address [address] [place] [address]- Care Team Providers Care Security Software Engineer Name Role Phone Adeel Fountain MD Primary Care Physician [phone] Encounter [facility] Date(s): 02/16/21 - 03/18/21 [facility] Adult [address] [place] [address]- Allergies, Adverse Reactions, Alerts Substance Reaction Severity [...] 02/20/21 14:02:00 EDT, Route to Pharmacy Electronically, [id number], [facility], 176, cm, 02/20/21 [...] 0, 0, 09/17/06 2:07:12, Print RENETTA Number, [id number], Constant Indicator Start Date: 09/17/06 Status: Ordered Elimite 5% cream 1 application, Topically, Once, # 60 Gm, 0 Refills, Soft Stop, 02/20/21 14:06:00 EDT, Cream, [facility], Partial fill upon [...] 3 Refills, Maintenance, 05/06/20 14:07:00 EDT, Powder, [facility], 1 puffs Inhalation 2 times a day,x90 days, 175, cm, 05/06/20 13:45:00 EDT, Height, 113, kg, 01/06/20 13:04:00 EST, Dry Weight Start Date: 05/06/20 Stop Date: 05/01/21 Status: Ordered ketoconazole 2% topical cream 1 application, Topically, 2 times a day, # 60 Gm, 2 Refills, Maintenance, 02/20/21 14:06:00 EDT, [place], [facility], Partial fill upon patient request if the prescription is for a schedule II opioid drug., 1 application Topically 2 times a d... Start Date: 02/20/21 Status: Ordered Lotrisone 0.05%-1% cream 1 application, Topically, 2 times a day, # 45 Gm, 0 Refills, Maintenance, 01/29/20 11:18:00 EDT, Cream, [facility], 1 application Topically 2 times [...] tablet, 3 Refills, Maintenance, 05/06/20 14:05:00EDT, Tablet, [facility], 175, cm, 05/06/20 13:45:00 EDT, Height, 113, kg, 01/06/20 13:04:00 EST, Dry Weight Start Date: 05/06/20 Stop Date: 05/01/21 Status: Ordered omeprazole 20 mg oral enteric coated capsule 1 capsule, By Mouth, Daily, # 90 capsule, 0 Refills, Maintenance, 12/27/20 11:35:00 EST, [facility], 176, cm, 12/22/20 [...] 02/12/21 8:21:00 EDT, Route to Pharmacy Electronically, [facility], 176, cm, 12/22/20 [...] with no history of insulin use(Confirmed) Active 93430; repeat 2022 2Colonoscopy 2013 polyp, repeat 2017 3EGD 2014 positive for gastroparesis. 4egd 2003 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 5upper endo 2014 6admitted [facility] 2009 7s/p left tkr 2011 Social History Social History Type Response Smoking Status Former smoker; Other : quit 1989; entered on: 02/26/18 Sex
--- OUTSIDE RECORDS SUMMARY | 2024-10-12 12:37 | XMS_ITS | Continuity of Care Document ---
Author Organization [facility] Zackery lt Address [address] [place] [address]- Care Team Providers Care Floor Finisher Name Role Phone Adeel Fountain MD Primary Care Physician [phone] Encounter [facility] Date(s): 02/20/21 - 02/27/21 [facility] Adult [address] [place] [address]- Attending Physician: Adeel Fountain MD Allergies, Adverse [...] 02/20/21 14:02:00 EDT, Route to Pharmacy Electronically, [id number], [facility], 176, cm, 02/20/21 13:51:00 [...] 0, 0, 09/17/06 2:07:12, Print RENETTA Number, [id number], Constant Indicator Start Date: 09/17/06 Status: Ordered Elimite 5% cream 1 application, Topically, Once, # 60 Gm, 0 Refills, Soft Stop, 02/20/21 14:06:00 EDT, Cream, [facility], Partial fill upon patient [...] 3 Refills, Maintenance, 05/06/20 14:07:00 EDT, Powder, [facility], 1 puffs Inhalation 2 times a day,x90 days, 175, cm, 05/06/20 13:45:00 EDT, Height, 113, kg, 01/06/20 13:04:00 EST, Dry Weight Start Date: 05/06/20 Stop Date: 05/01/21 Status: Ordered ketoconazole 2% topical cream 1 application, Topically, 2 times a day, # 60 Gm, 2 Refills, Maintenance, 02/20/21 14:06:00 EDT, Cream, [facility], Partial fill upon patient request if the prescription is for a schedule II opioid drug., 1 application Topically 2 times a d... Start Date: 02/20/21 Status: Ordered Lotrisone 0.05%-1% cream 1 application, Topically, 2 times a day, # 45 Gm, 0 Refills, Maintenance, 01/29/20 11:18:00 EDT, Cream, [facility], 1 application Topically 2 [...] tablet, 3 Refills, Maintenance, 05/06/20 14:05:00EDT, Tablet, [facility], 175, cm, 05/06/20 13:45:00 EDT, Height, 113, kg, 01/06/20 13:04:00 EST, Dry Weight Start Date: 05/06/20 Stop Date: 05/01/21 Status: Ordered omeprazole 20 mg oral enteric coated capsule 1 capsule, By Mouth, Daily, # 90 capsule, 0 Refills, Maintenance, 12/27/20 11:35:00 EST, [facility], 176, cm, 12/22/20 10:41:00 EST, Height, 110.6, kg, 10/27/20 13:48:00 EST, Dry Weight Start Date: 2/6/21 Status: Ordered One Touch Delica Lancets See [...] 02/12/21 8:21:00 EDT, Route to Pharmacy Electronically, [facility], 176, cm, 12/22/20 10:41:00 [...] with no history of insulin use(Confirmed) Active 74888; repeat 2022 2Colonoscopy 2013 polyp, repeat 2018 3EGD 2014 positive for gastroparesis. 4egd 2003 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 5upper endo 2014 6admitted [facility] 2009 7s/p left tkr 2011 Vital Signs Most recent to oldest [Reference Range]: 1 Height 176 cm (02/20/21 1:51 PM) Weight 109.9 kg (02/20/21 1:51 PM) Oxygen Saturation [94-100 %] 97 % (02/20/21 1:51 PM) Pulse Rate [55-90 bpm] 73 bpm (02/20/21 1:51 PM) Body Mass Index [18.5-24.99] 35.48 *>HHI* (02/20/21 1:51 PM) Blood Pressure [90-138/55-84 mm Hg] 132/ 68mm Hg (02/20/21 1:51 PM) Mode of Delivery (Oxygen) Room air (02/20/21 1:51 PM) Blood pressure sites Arm, left (02/20/21 1:51 PM) Weight Obtained Via Standing scale (02/20/21 1:51 PM) Social History Social History Type Response Smoking Status Former smoker; Other : quit 1989; entered on: 02/26/18 Sex
--- OUTSIDE RECORDS SUMMARY | 2024-10-12 12:37 | XMS_ITS | Continuity of Care Document ---
Author Organization [facility] Zackery lt Address [address] [place] [address]- Care Team Providers Care Skip Operator Name Role Phone Adeel Fountain MD Primary Care Physician [phone] Encounter [facility] Date(s): 02/15/22 - 03/17/22 [facility] Adult [address] [place] [address]- Allergies, Adverse Reactions, Alerts Substance Reaction Severity [...] Note: TEREBETTY 4Admin Note: Biomedical Jon of [facility] 5Admin Note: BIOMEDICAL [...] 12/21/21 11:37:00 EST, Route to Pharmacy Electronically, [id number], [facility] ([place]), 176, cm, 10/26/21 9:28:00 EST, H... Start Date: 12/21/21 Status: Ordered CoQ10 = 300 mg, By Mouth, Daily, 0 Refills, Maintenance, 07/04/18 10:56:18 EDT Start Date: 07/04/18 Status: Ordered Crestor 5 mg oral tablet 1 tablet = 5 mg, By Mouth, Daily, # 90 tablet, 3 Refills, Maintenance, 12/21/21 11:37:00 EST, [facility] Partial fill upon patient request if the prescription is for aschedule II opioid drug., 176, cm, 10/26/21 9:28:00... Start Date: 12/21/21 Status: Ordered diltiazem 300 mg/24 hours oral capsule, extended release 300 mg, 1, capsule, By Mouth, Daily, # 90 capsule, Refills 3, Tot. Refills 3, Maintenance, 12/21/2210:37:00 EST, Route to Pharmacy Electronically, [facility] ([place]), 176, cm, 10/26/21 9:28:00 EST, Height, 110.6, kg, 10/27/20 13:48:00... Start Date: 12/21/21 Status: Ordered doxazosin 4 mg oral tablet 1 tablet = 4 mg, By Mouth, Daily, 0 Refills, Maintenance, 01/30/20 9:12:00 EDT Start Date: 01/30/20 Status: Ordered Ecotrin Low Strength Adult 81 mg oral enteric coated tablet 81, mg, 1, tablet, By Mouth, Daily, 0, 0, 09/17/06 2:07:12, Print RENETTA Number, [id number], Constant Indicator Start Date: 09/17/06 Status: Ordered [...] 11:36:00 EST, Powder, [facility] ([place]), 1 puffs Inhalation 2 times a day,x90 days, 176, cm, 10/26/21 9:28:00 EST, Height, 110.6, kg, 10/27/20 13:48:00 EST,... Start Date: 12/21/21 Stop Date: 12/16/22 Status: Ordered melatonin 10 mg oral capsule 1 capsule = 10 mg, By Mouth, Daily at bedtime, # 60 capsule, 1 Refills, Maintenance, 12/21/21 11:37:00 EST, [facility] ([place]), 176, cm, 10/26/21 9:28:00 EST, Height, 110.6, kg, 10/27/20 13:48:00 EST, Dry Weight Start Date: 12/21/21 Status: Ordered Metamucil Powder By Mouth, Daily at bedtime, 0 Refills, Maintenance, 05/08/13 11:48:10 EDT Start Date: 05/08/13 Status: Ordered metFORMIN 500 mg oral tablet 1 tablet = 500 mg, By Mouth, 2 times a day, # 180 tablet, 1 Refills, Maintenance, 06/13/22 8:47:00 EDT, [facility] 176, cm, 10/26/21 9:28:00 EST, Height, 110.6, kg, 10/27/20 13:48:00 EST, Dry Weight Start Date: 06/13/22 Stop Date: 12/10/22 Status: Ordered montelukast 10 mg oral tablet 1, tablet, By Mouth, Daily, # 90 tablet, Refills 3, Tot. Refills 3, 12/21/21 11:37:00 EST, Route toPharmacy Electronically, [facility] ([place]), 176, cm, 10/26/21 9:28:00 EST, Height, 110.6, [...] 11:36:00 EST, Tablet, [facility] ([place]), 1 tablet By Mouth Daily,x90 days, 176, [...] barretts 6upper endo 2014 7admitted [facility] 2009 8s/p left tkr 2012 Social History Social History Type Response Smoking Status Former smoker; Other : quit 1989; entered on: 02/26/18 Sex
== END 2024-10-07 10:14 | disposition home or self-care (01) ==
PROVIDERS: Physician Assistant Medical; Emergency Provider Emergency Medicine; PCP Internal Medicine
DX: L03.312 Cellulitis of back [any part except buttock and flank] (principal); I25.10 Atherosclerotic heart disease of native coronary artery without angina pectoris; I10 Essential (primary) hypertension; Z79.899 Other long term (current) drug therapy; Z03.818 Encounter for observation for suspected exposure to other biological agents ruled out; Z87.891 Personal history of nicotine dependence
CPT/HCPCS: 0241U; 36415; 80048; 80076; 85025; 86617; 86618; 87468; 87469; 87478; 87484; 87798; 96372; 99284; J1885

== ENCOUNTER 2024-10-12 10:27 | Outpatient (AMB) | payer MEDICARE, SELFPAY ==
--- NOTE | 2024-10-12 10:31 | HO.NEPHOV_ITS ---
Vital Signs 10/12/24 10:35 Height 5 ft 9 in Weight 245 lb 2 oz BMI 36.2 BP 130/72 Blood Pressure Location Lt brachial Position Sitting Intake Visit Reasons: Proteinuria/ Conf Animal Shelter Supervisor Required: No Accompanied by: Self / Same As Patient Allergies morphine Allergy (Severe, Verified 10/07/24 07:46) agitation/severe skin symptoms oxycodone Allergy (Severe, Verified 10/07/24 07:46) agitation/severe skin symptoms HPI Comments Details: I had the pleasure of seeing Fabian in consultation for proteinuria. He is 79 years of age with DM, HTN , CAD as well as high BMI. His blood sugar control is fair and his BP is at goal. He denies retinopathy but has neuropathy. He denies carotid stenosis, CVA, CHF, PAD or known H/O KIARRA. He does not take excess NSAID's. He has no new bone or back pain. He denies epistaxis, photosensitivity, new skin rashes, new joint swellings, hematuria, new bone/back pain, edema. He has no H/O active malignancy or auto immune disorders. His renal functions are normal. [facility] Medical History (Updated 10/18/24 @ 11:58 by Mando Melgar MD) Diabetes Peripheral neuropathy Sleep apnea HTN (hypertension) Hiatal hernia Diverticulosis CAD (coronary artery disease) Asthma Colitis Acute cystitis with hematuria Gross hematuria Rotator cuff impingement syndrome of left shoulder Primary osteoarthritis, left shoulder Poor urinary stream Benign prostatic hyperplasia with lower urinary tract symptoms Chronic prostatitis Hypogonadism in male Surgical History History of back surgery Hx of transurethral resection of prostate Hx of arthroscopy of right knee Hx of shoulder surgery History of esophagogastroduodenoscopy (EGD) H/O colonoscopy History of total knee replacement (TKR) Family History Father No problems noted. Mother No problems noted. Social History Are you a primary ambulatory care nurse to a significant other at home: No Do you presently have visiting nurse or other home services: No Alcohol intake: current Alcohol intake frequency: a few times a week Patient Tobacco Use Status: Former Tobacco user Tobacco use type: Cigarette Review of Systems Const All systems reviewed & are unremarkable except as noted in HPI and below Physical Exam Vital Signs: Last Vital Signs BP 130/72 10/12/24 10:35 BMI result Body Mass Index 36.2 Const General: comfortable and no acute distress Orientation/consciousness: patient oriented x3 HEENT Head: Yes normocephalic Mouth: Normal oral and palatal mucosa present Eyes EOM: EOMs intact bilaterally Neck Neck: Yes supple Resp Auscultation: clear to auscultation bilaterally Cardio Jugular venous distension: no JVD Rate: regular rate GI Palpation (GI): Soft to palpation Auscultation: normal bowel sounds General: Yes no CVA tenderness Back/Spine/Pelvis Back: no CVA tenderness Skin General skin exam: no rashes or lesions noted Neuro General: patient oriented x3 and moves all extremities Extrem General: Yes no pedal edema Results Reviewed Nephrology Results: Hgb 13.0 g/dl (14.0-18.0) L 10/07/24 WBC 12.0 X10*3/uL (4.8-10.8) H 10/07/24 Plt Count 183 X10*3/uL (160-400) 10/07/24 Sodium 136 mmol/L (135-145) 10/07/24 Potassium 4.4 mmol/L (3.3-5.1) 10/07/24 Chloride 100 mmol/L (96-108) 10/07/24 Carbon Dioxide 27 mmol/L (22-29) 10/07/24 BUN 16 mg/dL (9-16) 10/07/24 Creatinine 0.86 mg/dL (0.5-1.4) 10/07/24 Calcium 9.2 mg/dL (8.4-10.2) 10/07/24 Urine Protein 30 (1+) mg/dL (Neg-Trace) H 07/16/24 Assessment & Plan Assessment & Plan (1) Proteinuria: Code(s): R80.9 - Proteinuria, unspecified Category: Medical Qualifiers: Proteinuria type: other Qualified Code(s): R80.8 - Other proteinuria (2) HTN (hypertension): Code(s): I10 - Essential (primary) hypertension Category: Medical Qualifiers: Hypertension type: primary hypertension Qualified Code(s): I10 - Essential (primary) hypertension Plan Fabian recently was found to have proteinuria during Urology visit. His renal functions are normal. He is a diabetic and hypertensive. His BP is at goal. He is on Diltiazem which should be helping with proteinuria, if he genuinely has it. 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 He is not on ACEI/ARB but does not know why. From a cardiology perspective, he is on optimal management including hydralazine & Imdur instead of ACEI/ARB. I have ordered 24 hour urine for protein along with serum and immunofixation given his age. He will benefit from weight loss and minimizing NSAID's. I shall consider switching him from pioglitazone to Jardiance. He should avoid PPI as needed. I did not make any medication changes today. All these have been explained in detail. Answered all questions. Orders: Orders Immunofixation Pnl, Serum 3 Months I10 - Essential (primary) hypertension, R80.9 - Proteinuria, unspecified Protein, 24 Hr Urine Group 3 Months I10 - Essential (primary) hypertension, R80.9 - Proteinuria, unspecified Immunofixation, Random Urine 3 Months I10 - Essential (primary) hypertension, R80.9 - Proteinuria, unspecified Coding Level of Care Code New Pt Level 4 (56771) Diagnoses Other proteinuria R80.8 Proteinuria type: other Primary hypertension I10 Hypertension type: primary hypertension
[2024-10-12 10:35] VITALS: BP 130/72; BMI 36.2
== END 2024-10-12 11:22 | disposition home or self-care (01) ==
PROVIDERS: PCP Internal Medicine; Referring Provider Nurse Practitioner Family; Visit Provider Internal Medicine Nephrology
DX: R80.8 Other proteinuria (principal); I10 Essential (primary) hypertension
CPT/HCPCS: 99204

== ENCOUNTER → 2024-10-12 10:27 | Outpatient (BNVA) | payer MEDICARE, SELFPAY | PROVIDERS: PCP Internal Medicine; Referring Provider Nurse Practitioner Family; Visit Provider Internal Medicine Nephrology | DX: R80.8 Other proteinuria (principal); I10 Essential (primary) hypertension; E11.42 Type 2 diabetes mellitus with diabetic polyneuropathy | CPT/HCPCS: 99202 ==

== ENCOUNTER 2024-12-12 07:37 | Outpatient (AMB) | payer MEDICARE, SELFPAY ==
--- NOTE | 2024-12-12 07:37 | A.OFFVIS_ITS ---
Intake Visit Reasons: 3m/labs Intake Note: Patient presents today for tele visit follow up on: chronic uti, testicular hypofunction, and lab results * PSA: 1.04 * Testosterone: (pending) Urology Med: methenamine, vitamin c, testosterone Antibiotic Allergy: None Blood Thinner: Aspirin, Clopidogrel Animal Care Taker Required: No Accompanied by: Self / Same As Patient Allergies morphine Allergy (Severe, Verified 12/12/24 07:50) agitation/severe skin symptoms oxycodone Allergy (Severe, Verified 12/12/24 07:50) agitation/severe skin symptoms Medication List - Last Reconciled 12/12/24 by IZA Dennis-ANUPAM albuterol sulfate 90 mcg/actuation 2 puffs PO Q6H PRN ascorbic acid (vitamin C) 1 g PO DAILY 90 days aspirin (Ecotrin Low Strength) 81 mg PO DAILY blood sugar diagnostic As directed cetirizine 10 mg PO DAILY clopidogrel 75 mg PO DAILY diltiazem HCl CD (Cartia XT) 300 mg PO DAILY fluticasone propionate 50 mcg/actuation 2 sprays intranasal QAM eanbqgzvnei-oxszkqecy-qantauup 200-62.5-25 mcg (Trelegy Ellipta) 1 ea inhalation DAILY PRN furosemide mg PO DAILY hydralazine 25 mg PO BID hydrochlorothiazide 25 mg PO DAILY isosorbide mononitrate ER 30 mg PO DAILY melatonin 10 mg PO BEDTIME PRN methenamine hippurate 1 g PO DAILY 90 days montelukast 10 mg PO DAILY nitroglycerin mg sublingual omeprazole 20 mg PO DAILY pioglitazone 45 mg PO DAILY rosuvastatin 5 mg PO DAILY testosterone 2 pumps topical DAILY 28 days HPI Comments Details: Fabian is a pleasant 79 year old male patient of Dr. Fountain. He has a past medical history of diabetes, peripheral neuropathy, sleep apnea, hypertension, hiatal hernia, diverticulosis, coronary artery disease, asthma, colitis, osteoarthritis, chronic prostatitis, and hypogonadism. He is being followed up on today via telehealth for his hypogonadism, prostatitis, and lower urinary tract symptoms. In discussion with the patient today he reports to be doing and feeling well urologically however he does report having had 2 cardiac stents placed about a month ago at [facility] and has been recovering well. He reports compliance with testosterone, methenamine, and vitamin-C as prescribed. He denies having had any UTIs and or UTI like symptoms since his last office visit here approximately 3 months ago. Hemoglobin, hematocrit and PSA results were reviewed with the patient today as noted and trended below however unable to review testosterone free and total as these remain pending at this time. Of note, patient underwent an office cystoscopy with Dr. Acuna 02/11 that noted open bladder neck with prior BPH procedure. He discusses his upcoming trip to [facility] in his enquiring a p.r.n. prescription for antibiotics. He currently denies any UTI like symptoms. He denies urinary urgency, urinary frequency, incontinence, nocturia, hematuria, dysuria, foul smelling urine, changes to urinary stream, flank pain, fever, and or chills. He is happy with his current voiding parameters. Hemoglobin and Hematocrit: 09/10 13.1/39.0, 05/13 18.8/46.1, 07/13 14.5/45.1, 04/13 15.0/45.0, 10/14 13.0/ 39.2, 12/15 12.2/38.0 Testosterone: 09/10 244, 08/12 216, 02/10 398, 07/13 337, 04/13 150, 12/15 pending Free testosterone: 04/13 21.0, 12/15 pending PSA: 09/10 0.3, 08/12 0.1, 02/10 0.1, 07/13 2.7, 04/13 1.2, 12/15 1.0 PREVIOUS OFFICE NOTE: Prostatitis/CPPS: They present for evaluation of, chronic prostatitis. He is currently being treated with antibiotics, fluroquinolone. Current symptoms include nocturia Yes incomplete emptying No frequency Yes Symptoms have been present on and off for many years. Laboratory testing included 12/08 [facility] - E.Coli hamilton sensitive. Testing included 07/07 RBUS - good emptying, prostate 25 gm 05/09 RBUS - bilateral renal cysts but no stone. 02/09 E coli and Enterococcus Augmentin and fosfomycin sensitive - Bactrim and ciprofloxacin resistant - 11/12 E coli Bactrim and ciprofloxacin resistant Hypogonadism: Reivewed labs Feeling good with testosterone cream on testicles. He presents today for review lab work - wants testosterone cream renewal - E prescribed down to [place] will try scrotal application. Initial symptoms include erectile dysfunction Yes decreased libido Yes change in mood/depression Yes in muscle size/strength Yes increased fatigue/malaise Yes increased abdominal fat No tender breasts/gynecomastia No hair loss No osteopenia No The onset of symptoms has been gradual. Laboratory results 12/08 , testosterone 649, PSA 0.85 07/08 [facility] - PSA 0.85, T 229 12/09 T 217 PSA 0.7 02/06 T 686 05/09 T 170 12/10 PSA 0.4 T 200, 06/09 T 279 PSA 0.15, 09/10 T 244 PSA 0.15, 05/12 T 215 PSA 0.14, 02/10 T 398 P 0.14, 07/13 T 337 P 2.7 Current therapy includes gel/cream exogenous testosterone. Response to therapy has been improved. Therapeutic plan Continue therapy. [facility] Medical History Diabetes Peripheral neuropathy Sleep apnea HTN (hypertension) Hiatal hernia Diverticulosis CAD (coronary artery disease) Asthma Colitis Acute cystitis with hematuria Gross hematuria Rotator cuff impingement syndrome of left shoulder Primary osteoarthritis, left shoulder Poor urinary stream Benign prostatic hyperplasia with lower urinary tract symptoms Chronic prostatitis Hypogonadism in male Surgical History History of back surgery Hx of transurethral resection of prostate Hx of arthroscopy of right knee Hx of shoulder surgery History of esophagogastroduodenoscopy (EGD) H/O colonoscopy History of total knee replacement (TKR) Family History Father No problems noted. Mother No problems noted. Social History Are you a primary child care specialist to a significant other at home: No Do you presently have visiting nurse or other home services: No Alcohol intake: current Alcohol intake frequency: a few times a week Patient Tobacco Use Status: Former Tobacco user Tobacco use type: Cigarette Review of Systems Const Reports as per [facility] Eyes Reports no additional complaints ENT Reports no additional complaints Card Reports as per [facility] Resp Reports as per [facility] GI Reports as per HPI Reports as per HPI Musc Reports as per HPI Neuro Reports no additional complaints Psych Reports no additional complaints Endo Reports as per [facility] Physical Exam Const General: cooperative Resp Effort & Inspection: able to speak in complete sentences Psych Attitude: cooperative Thought content: Normal thought content present Insight: Fair insight present (Psych) Judgement: Fair judgement present (Psych) Telehealth Telehealth Telehealth Platform: [employer] Location of provider rendering services: practice address Location of patient: address on file Patient Identification confirmed using: Name, : Yes Telehealth method: voice only Patient verbally consented to treatment: Yes Patient verbally consented to billing insurance company: Yes Patient informed of any privacy concerns related to visit: Yes Minutes spent on Phone/Video with Pt.: 20 Assessment & Plan Assessment & Plan (1) Chronic UTI (urinary tract infection): Code(s): N39.0 - Urinary tract infection, site not specified Category: Medical (2) Hypogonadism in male: Code(s): E29.1 - Testicular hypofunction Category: Medical (3) BPH w urinary obs/LUTS: Code(s): N40.1 - Benign prostatic hyperplasia with lower urinary tract symptoms; N13.8 - Other obstructive and reflux uropathy Category: Medical Plan Hemoglobin, hematocrit, and PSA results reviewed with the patient today; as noted above. Testosterone free and total remains pending. Patient currently denies any bothersome urinary issues or concerns. He reports be happy with current voiding parameters. Continue methenamine, vitamin-C, and testosterone as prescribed. Prescription provided for p.r.n. antibiotic; discussed holding methenamine while on treatment for UTI if taken. Discussed, educated, and stressed the importance of adequate hydration relation to recurrent urinary tract infections as well as overall health and well-being. Will obtain CBC, PSA, testosterone free and total in 6 months. Follow-up in 6 months with labs to be completed prior; or sooner with any issues, concerns, and or questions. Orders: Orders Testosterone, Free/Total 6 Months E29.1 - Testicular hypofunction Prostate Specific Antigen 6 Months E29.1 - Testicular hypofunction Complete Blood Count no Diff 6 Months E29.1 - Testicular hypofunction Medications: New nitrofurantoin macrocrystal hold methenamine while on treatment dose if taking 100 mg PO BID 10 days 20 caps 0RF N39.0 - Urinary tract infection, site not specified Patient Instructions: The patient had an opportunity to ask questions regarding the treatment plan. All questions were answered. Physical exam, labs, and imaging were discussed and reviewed in detail. As well as risks, benefits, and discussion of treatment choices. No major barriers to understanding were identified. The patient expressed understanding and agreement with the above treatment plan. The patient was made aware they should contact our office by phone for worsening of their current condition, the appearance of new symptoms, or with any questions or concerns. Compliance is encouraged with any medications and follow up testing that is ordered. It is a privilege to be allowed the opportunity to participate in? your urological care.? Again, if you have any questions or concerns If you have any questions or concerns please do not hesitate to contact me. The office is [phone]. This note is constructed using voice recognition software. While every effort has been made to ensure accuracy tabulating machine mechanic errors may have been included. Yours sincerely, HI Dennis Coding Level of Care Code Tele Est Pt Level 4 (52806) Diagnoses Chronic UTI (urinary tract infection) N39.0 Hypogonadism in male E29.1 BPH w urinary obs/LUTS N40.1; N13.8
== END 2024-12-12 08:42 | disposition home or self-care (01) ==
LOC: HO.HUSH 07:37
PROVIDERS: PCP Internal Medicine; Visit Provider Nurse Practitioner Family
DX: N39.0 Urinary tract infection, site not specified (principal); E29.1 Testicular hypofunction; N40.1 Benign prostatic hyperplasia with lower urinary tract symptoms; N13.8 Other obstructive and reflux uropathy
CPT/HCPCS: 98016

== ENCOUNTER → 2024-12-12 07:37 | Outpatient (BNVA) | payer MEDICARE, SELFPAY | PROVIDERS: PCP Internal Medicine; Visit Provider Nurse Practitioner Family ==

== ENCOUNTER 2024-12-28 15:35 | Inpatient (IN) | payer MEDICARE, SELFPAY ==
--- NOTE | 2024-12-28 | ECG_ITS ---
Test Reason : SOB Blood Pressure : */* mmHG Vent. Rate : 100 BPM Atrial Rate : 100 BPM P-R Int : 136 ms QRS Dur : 98 ms QT Int : 352 ms P-R-T Axes : 37 25 46 degrees QTcB Int : 454 ms Normal sinus rhythm Normal ECG When compared with ECG of 19-May-2023 13:09, Premature atrial complexes are no longer Present Nonspecific T wave abnormality no longer evident in Lateral leads Referred By: Generic ED Physician Electronically Signed By: Booker Sanchez
--- NOTE | ~2024-12-28 | XR_ITS ---
CLINICAL HISTORY: weakness 1 view chest x-ray Comparison: None Findings: Portions of the exam is obscured by overlying material. There is consolidation in the right lung, possible pneumonia or subsegmental atelectasis. Heart size is normal. No acute fracture. IMPRESSION: 1. Right mid lung consolidation, differential considerations noted. This document has been electronically signed by: Omkar Joshi MD on 12/28/2024 18:54:01
--- NOTE | ~2024-12-28 | CT_ITS ---
CLINICAL HISTORY: flank pain, fever, hx of stones CT abdomen and pelvis without contrast Comparison: None Findings: There is right middle and lower lobe consolidation, possible pneumonia Unremarkable gallbladder and solid organs. No urolithiasis. No bowel obstruction, pneumoperitoneum, or pneumatosis. There are diverticula in the descending and sigmoid colon without imaging evidence of diverticulitis. Pelvic contents unremarkable. Normal appendix. No acute fracture. IMPRESSION: Right middle and lower lobe consolidation, differential considerations noted. This document has been electronically signed by: Omkar Joshi MD on 12/28/2024 18:47:13
[2024-12-28 15:40] VITALS: BP 154/96; BP 172/98; PULSE 102; PULSE 113; RESP 18; TEMP 37.4; O2SAT 92; O2SAT 96; BMI 36.2
[2024-12-28 16:33] LABS: MANUAL DIFF FLAG NO
[2024-12-28 16:38] LABS: Basophils Percent Auto 0.3 % (0-2); Eosinophils Absolute Auto 0.1 X10*3/uL (0.0-0.4); Eosinophils Percent Auto 0.6 % (0-4); Hematocrit 39.8 % (42.0-52.0); Hemoglobin 13.2 g/dl (14.0-18.0); Imm Gran Abs Auto 0.13 X10*3/uL (0.00-0.03); Lymphocytes Absolute Auto 0.6 X10*3/uL (1.2-4.9); Lymphocytes Percent Auto 5.1 % (20-40); Mean Corpuscular HGB Conc 33.2 g/dl (31.0-36.0); Mean Corpuscular Hemoglobin 28.3 pg (27.0-33.0); Mean Corpuscular Volume 85.2 fL (80.0-98.0); Mean Platelet Volume 10.3 fL (9.4-12.4); Monocytes Absolute Auto 1.3 X10*3/uL (0.1-1.2); Neutrophils Absolute Auto 10.3 x10*3/uL (2.0-8.3); Platelet Count 178 X10*3/uL (160-400); Red Blood Count 4.67 X10*6/uL (4.60-5.80); Red Cell Distribution Width 15.2 % (11.0-16.0); White Blood Count 12.4 X10*3/uL (4.8-10.8)
--- OUTSIDE RECORDS SUMMARY | 2024-12-28 16:48 | XMS_ITS | Continuity of Care Document ---
Author Organization [facility] Clinical Address [address] [place] [address] Care Team Providers Care Supervisor [employer] Name Role Phone KIMI DIAZ Primary Care Provider Assessment No assessment recorded. Plan of Treatment Reminders Order Date Submit Date Provider Last Modified By Organization Details Last Modified Time Details Appointments None recorded. Lab None recorded. Referral physical therapist referral - DIAGNOSIS: Right shoulder irreparable anterior-potts perior rotator cuff tearEvaluat e and Treat2-3x/w levelock x 6 weeksGoal: - Decrease pain/swelli ng - Increase range of motion - Increase strength and/or enduranceRe commended Modalities: - Heat prior to stretching- Ice at the end of the session- Additional modalities prn, but emphasis should be on manual therapyPrec autions: WBAT, no motion restriction sTherapeuti c Exercise: - Passive, active-assi st, active range of motion as tolerated, focusing on gradual progression over time- SUBMAXIMAL isometric rotator cuff strengtheni ng: light only, stop if any pain- Scapular stabilizer strengtheni ng (shrugs/ret ractions) WITHOUT resistance- Anterior deltoid strengtheni ng: see attached exercisesEm phasize importance of home program, 2x/day 2024 025 [email or web address] Not available 5 14:52:13 Procedures None recorded. Surgeries None recorded. Imaging None recorded. Medication Orders None recorded. Patient TargetsNo targets recorded. Patient InstructionsNo instructions recorded. Reason for Referral Physical Therapist Referral for Nontraumatic complete rupture of rotator cuff of right shoulder DIAGNOSIS: Right shoulder irreparable anterior-superior rotator cuff tearEvaluate and Treat2-3x/week x 6 weeksGoal: - Decrease pain/swelling - Increase range of motion - Increase strength and/or enduranceRecommended Modalities: - Heat prior to stretching- Ice at the end of the session- Additional modalities prn, but emphasis should be on manual therapyPrecautions: WBAT, no motion restrictionsTherapeutic Exercise: - Passive, active-assist, active range of motion as tolerated, focusing on gradual progression over time- SUBMAXIMAL isometric rotator cuff strengthening: light only, stop if any pain- Scapular stabilizer strengthening (shrugs/retractions) WITHOUT resistance- Anterior deltoid strengthening: see attached exercisesEmphasize importance of home program, 2x/day Referring Physician: Oma Palm, Orthopedic Surgery, Encounter Date: 12/21/2024 Problems Name Problem SNOMED Code Status Onset Date Resolution Date Notes Provider Name and Address Organization Details Recorded Time No complaint s 141387429 Active Status: 'I'; Not Available [facility] 4 09:10:58 Knee joint prosthesi s present 212348089126 Active 2016 Problem Code: Z96.651; Problem Code Type: ICD-10; Status: 'A'; Not Available [facility] 4 10:58:26 Idiopathi c osteoarth ritis 624185539 Active 2015 Problem Code: M17.11; Problem Code Type: ICD-10; Status: 'A'; Not Available [facility] 4 10:58:26 Pain of left hip joint 652010258715 100 Active 2023 DANIELLE MARROQUIN [facility] 4 10:39:28 Problem Notes None recorded. Procedures Surgical History Date Name Laterality Status Provider Name and Address Organization Details Recorded Time 5 Sports Shoulder completed Oma Palm MD [address], [place], [address], [facility] 12/21/2024 10:22:45 4 Hip Kenalog 1cc Injection, L/R completed Dimitry Olivas PA-C [address], [place], [address], [facility] 02/07/2024 11:11:12 Imaging Results None recorded. Procedure Notes None recorded. Medical Equipment None Reported. Allergies No known drug allergies Medications Name Sig Start Date Stop Date Status Note LastModified by Organization Details LastModified Time freestyle lite test strips strp 12/21 completed Not Available Not Available Not Available prednisone 10 mg tablet 12/21 completed Not Available Not Available Not Available doxycycline hyclate 100 mg capsule 12/21 completed Not Available Not Available Not Available cetirizine 10 mg tablet TAKE 1 TABLET BY MOUTH ONCE DAILY active Not Available Not Available No t Available oxybutynin chloride ER 10 mg tablet,exte nded release 24 hr active Not Available Not Available Not Available azithromyci n 250 mg tablet 12/21 completed Not Available Not Available Not Available phenazopyri dine 200 mg tablet Take 1 tablet by mouth 3 times a day as needed for Pain active Not Available Not Available No t Available prednisone 20 mg tablet TAKE 1 TABLET BY MOUTH TWICE DAILY WITH FOOD OR MILK FOR 5 DAYS 12/21 completed Not Available Not Available Not Available isosorbide mononitrate ER 30 mg tablet,exte nded release 24 hr active Not Available Not Available Not Available pioglitazon e 45 mg tablet active Not Available Not Available Not Available hydralazine 25 mg tablet TAKE 1 TABLET BY MOUTH TWICE DAILY active Not Available Not Available No t Available clopidogrel 75 mg tablet TAKE 1 TABLET BY MOUTH EVERY DAY active Not Available Not Available No t Available ciprofloxac in 500 mg tablet Take 1 tablet by mouth in the morning and 1 tablet before bedtime. Do all this for 14 days. 12/21 completed Not Available Not Available Not Available sulfamethox azole 800 mg-trimetho prim 160 mg tablet active Not Available Not Available Not Available tramadol 50 mg tablet active Not Available Not Available No t Available methenamine hippurate 1 gram tablet Take 1 tablet twice a day by oral route. active Not Available Not Available No t Available diltiazem CD 300 mg capsule,ext ended release 24 hr active Not Available Not Available Not Available benzonatate 100 mg capsule TAKE 1 CAPSULE BY MOUTH THREE TIMES DAILY FOR 7 DAYS NEEDED FOR COUGH (DO NOT CRUSH OR CHEW) 12/21 completed Not Available Not Available Not Available pseudoephed rine-guaife nesin ER 80-700 mg tablet,exte nded release Percocet 5-325MG Tablet 1-2 Q 4-6 Hours Prn 12/21 completed Statu s: 'Curr ent'; Not Available Not Available Not Available metformin 1,000 mg tablet active Not Available Not Available Not Available nitrofurant oin macrocrysta l 100 mg capsule active Not Available Not Available Not Available clotrimazol e-betametha sone 1 %-0.05 % topical cream 12/21 completed Not Available Not Available Not Available omeprazole 20 mg capsule,del ayed release TAKE 1 CAPSULE BY MOUTH ONCE DAILY active Not Available Not Available No t Available montelukast 10 mg tablet TAKE 1 TABLET BY MOUTH ONCE DAILY active Not Available Not Available No t Available hydrochloro thiazide 25 mg tablet TAKE 1 TABLET BY MOUTH ONCE DAILY 12/21 completed Not Available Not Available Not Available furosemide 20 mg tablet active Not Available Not Available Not Available gabapentin 100 mg capsule 12/21 completed Not Available Not Available Not Available fluticasone propionate 50 mcg/actuati on nasal spray,suspe nsion USE 2 SPRAY(S) IN EACH NOSTRIL ONCE DAILY IN THE MORNING 12/21 completed Not Available Not Available Not Available amoxicillin 875 mg-potassiu m clavulanate 125 mg tablet 02/06 completed Not Available Not Available Not Available rosuvastati n 5 mg tablet TAKE 1 TABLET BY MOUTH ONCE DAILY active Not Available Not Available No t Available metoprolol tartrate 25 mg tablet TAKE 1/2 (HALF) TABLET BY MOUTH TWO TIMES A DAY active Not Available Not Available No t Available Vitamin C active Not Available Not Kaycee ilable Not Available FreeStyle Lite Strips USE 1 STRIP TO CHECK GLUCOSE ONCE DAILY 02/06 completed Not Available Not Available Not Available testosteron e 20.25 mg/1.25 gram per pump act.(1.62 %) transdermal gel APPLY TOPICALLY 2 PUMPS DAILY TO THE ARMS active Not Available Not Available No t Available Farxiga 5 mg tablet TAKE 1 TABLET BY MOUTH ONCE DAILY 12/21 completed Not Available Not Available Not Available Trelegy Ellipta 200 mcg-62.5 mcg-25 mcg powder for inhalation active Not Available Not Available N ot Available aspirin 81 mg capsule Take 1 capsule every day by oral route. active Not Available Not Available No t Available Ozempic 0.25 mg or 0.5 mg (2 mg/3 mL) subcutaneou s pen injector INJECT 0.5MG SUBCUTANE OUSLY ONCE A WEEK 12/21 completed Not Available Not Available Not Available Vitals Date Recorded Body height Body mass index (BMI) Body weight Provider Name and Address Organization Details Last Updated DateTime 12/21/2024 175.26 cm 34.7 kg/m2 878280.21 g [facility] 12/21/2024 09:41:51 Social History Question Answer Notes LastModified by Organizat ion Details LastModified Time Tobacco Smoking Status Never Smoker DANIELLE manjarrez [place] - [place] [facility] 02/07/2024 10:38:13 What Is Your Level Of Alcohol Consumption? None Information not available 02/07/2024 What Is Your Relationship Status? Information not available 02/07/2024 Do You Use Any Illicit Or Recreational Drugs? No Information not available 02/07/2024 Do You Or Have You Ever Used Any Other Forms Of Tobacco Or Nicotine? No Information not available 02/07/2024 Sex: Unknown Functional Status None recorded. Mental Status None recorded. Family History Nothing Reported. Medical History Condition Response Coronary Artery Disease N Anxiety/Depression N Emphysema N COPD N Pacemaker N Vascular Disease N Heart Trouble Y Gastrointestinal Disease N Autoimmune disease N Orthotics N Arthritis Y Blood Clot N Acid Reflux (GERD) N Cancer N Stroke N Rheumatoid Arthritis N Arrhythmia N Fibromyalgia N Allergies/Hayfever N Thyroid Problems N Kidney/Bladder Problems N Anemia N Heart Attack (RI) N Diabetes Y Bleeding Disorder N Seizures/Epilepsy N AIDS/HIV N Congestive Heart Failure (CHF) N Asthma N Peripheral Vascular Disease N Sleep Apnea Y Hepatitis N Heart Disease N Pulmonary Embolism N Hypertension Y Osteoporosis N Past Encounters Encounter ID Performer Location Encounter Start Date Encounter Closed Date Diagnosis/Indication Diagnosis SNOMED-CT Code Diagnosis ICD10 Code Diagnosis Note [id number] [facility] [address] [place] [address] 12/12/2024 08:21:14 12/12/2024 08:56:34 Non-traumatic partial tear of right rotator cuff [id number] 798390 M75.435 [id number] MD EMEL[facility] [address] [place] [address] [place] [address] 12/21/2024 08:21:48 12/21/2024 10:23:00 Nontraumatic complete rupture of rotator cuff of right shoulder 4491287703 880247 M75.121 Health Concerns Section Related Observation LastModified by Organization Detai ls LastModified Time None Recorded Concern Status LastModified by Organization Details LastModified Time None Recorded Payers Encounter Date Sequence Insurance Name Policy Number Policy Lee Covered Member ID Lee Member ID Guarantor Name 12/21/2024 1 [employer] MED[employer]ARE [employer]VANTAGE PLAN (MEDICARE REPLACEMENT HMO) [id number] 2 Fabian Haskins [id number] Fabian Haskins Notes Date Note Type Note Provider Name and Address Organization Details Recorded Time 12/21/2024 text/html Issue: Right shoulder irreparable anterior superior rotator cuff tear Interval History: This is a 79-year-old retired very active right-hand dominant gentleman who I have seen several times over the past 7 years for complaints related to right shoulder. He has had what is clinically seems to be a tear of the rotator cuff. We have been managing symptoms with cortisone injections and activity modification, and he has been getting by. Pain seems to be worse, however, over the past several months after helping his son nail 2 by fours overhead. He felt a rip or tear in the shoulder at that time and notes that pain and function have been worse since then. Pain is felt over the anterolateral aspect of the shoulder, particularly exacerbated by using the arm up overhead. Occasional crepitus. Denies numbness or tingling. Past family, medical, social history and review of systems have been reviewed and updated on the medical history sheet saved to the patient's chart. A 12-point review of systems is negative x12 except as noted above and/or on the medical history sheet. Examination: Very pleasant 79-year-old gentleman in no acute distress. 5 feet 9 inches, 235 pounds. On exam of the right upper extremity, no gross atrophy. No tenderness to palpation. Active forward elevation 140, passive 170. Positive Neer, positive Fox. Subacromial crepitus noted with Neer maneuver. Passive external rotation 70? ? ? with negative ER lag. Internal rotation L1. 4/5 strength with external rotation, 5-/5 with empty can, 5/5 with internal rotation. Pain with resisted ER, less so with empty can. Pain, mild weakness with bearhug maneuver. Mildly positive Yergason's. Negative cross body adduction. Sensation intact in an axillary distribution. Fires EPL, FPL and intrinsics. Hand is warm and well-perfused. Imagin views of the right shoulder performed at [facility] 09/25/2024 reviewed by me and Ortho PACS during the visit today. These demonstrate good preservation of glenohumeral and AC joint spaces. no proximal migration of the humeral head. Humeral head centered on axillary view. No dystrophic calcium deposition. Right shoulder MRI performed at [facility] 11/07/2024 independently reviewed by me on Ortho PACS during the visit today. This demonstrates a full-thickness tear affecting the supraspinatus. Torn tissue retracted to the lateral third humeral head. Some tendinopathy to the torn lateral edge evident. Debris in the subacromial space as well as the AC joint. Proximal long head biceps tendinopathy, which extends well down the bicipital groove. Possible long head biceps tendon rupture. Large effusion. Thinning as well as the subscapularis, suggestive of high-grade partial-thickness if not full-thickness tear affecting the upper half. Mild degenerative changes to glenohumeral articular cartilage surfaces. Type II acromion. There is significant significant atrophy and fat infiltration affecting the upper half of the subscapularis muscle belly. Grade 2 volume loss with grade 1 fatty infiltration of supraspinatus, grade 1 fat infiltration without significant volume loss of infraspinatus. Impression: 79-year-old right hand dominant gentleman with another further exacerbation of chronic right rotator cuff tear. He has now had an MRI confirming irreparable anterior superior cuff tear. Plan: Findings and options for management reviewed with the patient. Discussed that rotator cuff repair is not a great option for him. If we were to consider surgery, it would involve a reverse total shoulder arthroplasty. The patient is not interested in considering surgery at this time. As such, we will plan to maximize conservative treatment. Will go forward with cortisone injection today. Also provided a prescription for physical therapy to work on anterior deltoid strengthening exercises. For occasional aches and pains, the patient can take [id number] medication such as Tylenol or anti-inflammatories as needed; risks and benefits of medication discussed. Should call with more persistent pain. We will leave follow up open ended at this point. However should symptoms worsen or fail to improve to the patient's satisfaction, he is encouraged to give the office a call to be seen back for further evaluation and management. [employer] [facility] speech recognition bottle dealer software was used to create portions of this document. An attempt at proofreading has been made to minimize errors. Please call for corrections. Oma Palm MD [address] [place], [place] [address], [place], [address], [facility] 12/21/2024 10:22:59
--- OUTSIDE RECORDS SUMMARY | 2024-12-28 16:49 | XMS_ITS | Data Portability ---
Author Organization [facility], [facility] Address [address] [place] [address] Care Team Providers Care Utility Lineman Name Role Phone KIMI DIAZ Primary Care Provider Assessment No assessment recorded. Plan of Treatment Reminders Order Date Submit Date Provider Last Modified By Organization Details Last Modified Time Details Appointments None recorded. Lab None recorded. Referral physical therapist referral - DIAGNOSIS: Right shoulder irreparable anterior-potts perior rotator cuff tearEvaluat e and Treat2-3x/w shishmaref ira x 6 weeksGoal: - Decrease pain/swelli ng [...] importance of home program, 2x/day 2024 025 [email or web address] Not available 5 14:52:13 Procedures None recorded. Surgeries None recorded. Imaging XR, hip, unilateral, 2 or 3 view - new eval left hip pain. room 115 2023 024 Not available 4 14:26:09 XR, shoulder, 2 or more view - rm 2 2023 024 [facility], [address], [address], [place], [address], 4 14:36:38 MRI, shoulder, w/o contrast 2023 024 [facility] ([facility] [address], [place], [address], 4 14:42:29 Medication Orders None recorded. Patient TargetsNo targets [...] Oma Palm, Orthopedic Surgery, Encounter Date: 12/21/2024 Results Created Date Observation Date Name Description Value Unit Range Abnormal Flag Note LastModifiedBy Organization Detail LastModifiedTime 09/25/20 24 09/25/2024 camilo DICKENS, 2 or more view [email or web address] ?Encry pted=s hAaTro YD8dLq bEUv6g %2BXZw aYqtaq 0bqfl% 2Fg9IQ a4ajBk vP9nXo QUaueC m3YtLR FvZlgJ JJ8mAn HZtai3 2c3780 AC0Kqa HuFUaW nKiQtr MwF INTERFACE [facility] [address], [place], [address], 09/25/2024 14:36:38 09/25/20 24 09/25/2024 XR, camilo montes, 2 or more view [email or web address] ?Encry pted=s hAaTro YD8dLq bEUv6g %2BXZw aYqtaq 0bqfl% 2Fg9IQ a4ajBk vP9nXo QUaueC m3YtLR FvZlgJ JJ8mAn HZtai3 8a7332 AC0Kqa HuFUaW nKiQtr MwF INTER[facility] [address], [place], [address], 09/25/2024 14:36:40 11/07/20 24 11/07/2024 MRI, camilo montes, w/o contr ast [facility] Access ion Number : [id number] Patiying t Name: Fabian Haskins Record Number : [id number] Date of : 1944 Date of Exam: 2023 Referr ing Physic marquez: [facility] [address], [address] [place] [address] Exam: MR Should er (C-) CPT 51566 - Right Room Descri ption: [facility] Verio 3.0T MR Should er (C-) CPT 72112 CLINIC AL INDICA TION: Pain in right should er, Rule Out: rct? Pain in right should er, Rule Out: rct? Depart ment Protoc ol TECHNI QUE: MRI of the right should er was perfor med withou t intrav enous contra st. COMPAR DANY: None. FINDIN GS: AC joint: Mild wideni ng of the AC joint with accomp anying effusi on. Rotato r cuff and biceps tendon : Near full-t hickne ss bursal surfac e tear of the anteri or supras pinatu s footpr int measur ing 0.9 x 1.3 cm AP by transv erse. Partia l-thic kness inters titial tear of the subsca pulari s footpr int with underl toñito tendin osis allowi ng medial sublux ation of the biceps tendon which also demons trates partia l-thic kness longit udinal split tear at the juncti on of the intra- articu lar and extra articu lar segmen ts. Inters titial gangli on cyst along the infras pinatu s myoten dinous juncti on measur ing 1.5 x 2.3 cm. Teres minor tendon is intact . Normal rotato r cuff muscle bulk. Glenoi d labrum : Interm ediate signal degene ration of the inferi or labrum . No eviden ce of para labral cyst. Articu lar cartil age: Modera te diffus e thinni ng of the glenoh umeral articu lar cartil age withou t focal defect . Glenoh umeral joint effusi on. Small loose bodies and/or synech iae within the subsca pulari s recess . Bone: Mild inferi or glenoh umeral margin al osteop hyte format ion. No eviden ce of fractu re, malali gnment or bone marrow contus ion. IMPRES ROSANA: Near full-t hickne ss bursal surfac e tear of the anteri or supras pinatu s footpr int Partia l-thic kness inters titial tear and tendin osis of the subsca pulari s tendon allowi ng partia l medial sublux ation of the biceps tendon which also demons trates partia l-thic kness longit udinal split tear Inters titial gangli on cyst at the infras pinatu s myoten dinous juncti on Mild degene rative change s at the inferi or aspect of the glenoh umeral joint and inferi or labrum Wideni ng of the AC joint which can be seen in the settin g of remote trauma Electr onical ly Signed By: Will Steel rd, MD [email or web address] [facility] ([facility]) [address], [place], [address], 11/12/2024 10:08:26 Result Notes None recorded. Problems Name Problem SNOMED Code Status Onset Date Resolution Date Notes Provider Name and Address Organization Details Recorded Time No complaint s 046100876 Active Status: 'I'; [facility] 09:10[facility]58 Knee joint prosthesi s present 404861040636 Active 2016 Problem Code: Z96.651; Problem Code Type: ICD-10; Status: 'A'; Not Available [facility] 4 10:58:26 Idiopathi c osteoarth ritis 378585213 Active 2015 Problem Code: M17.11; Problem Code Type: ICD-10; Status: 'A'; Not Available [facility] 4 10:58:26 Pain of left hip joint 795524225188 100 Active 2023 DANIELLE Vega'HEURYOUSIF [facility] 4 10:39:28 Problem Notes None recorded. Procedures Surgical History Date Name Laterality Status Provider Name and Address Organization Details Recorded Time 5 Sports Shoulder completed Oma Palm MD [address], [place], [address], [facility] 12/21/2024 10:22:45 4 Hip Kenalog 1cc Injection, L/R completed Dimitry Olivas PA-C [address], [place], [address], [facility] 02/07/2024 11:11:12 Imaging Results Imaging Date Name Status LastModified by Organiz ation Details LastModified Time 09/25/2024 XR, shoulder, 2 or more view completed [facility] [address], [place], [address], 09/25/2024 14:36:38 09/25/2024 XR, shoulder, 2 or more view completed [facility] [address], [place], [address], 09/25/2024 14:36:40 11/07/2024 MRI, shoulder, w/o contrast completed [email or web address] [facility] ([facility]) [address], [place], [address], 11/12/2024 10:08:26 Procedure Notes None recorded. Medical Equipment None [...] and Address Organization Details Last Updated DateTime 02/07/2024 175.26 cm 34.7 kg/m2 125388.21 g CATYYLAUGUSTUS L'HEUREUX [facility] 02/07/2024 10:36:11 Date Recorded Body height Body mass index (BMI) Body weight Provider Name and Address Organization Details Last Updated DateTime 09/25/2024 175.26 cm 34.7 kg/m2 636349.21 g Bobby Benitez PA-C [address] [place] [address] [address], [address], [facility] 09/25/2024 14:28:34 Date Recorded Body height Body mass index (BMI) Body weight Provider Name and Address Organization Details Last Updated DateTime 12/12/2024 175.26 cm 34.7 kg/m2 449481.21 g ESCOBAR SILKE [facility] 12/12/2024 08:26:20 Date Recorded Body height Body mass index (BMI) Body weight Provider Name and Address Organization Details Last Updated DateTime 12/21/2024 175.26 cm 34.7 kg/m2 438550.21 g ROMMEL INGRAM [facility] 12/21/2024 09:41:51 Social History Question Answer Notes LastModified by Organizat ion Details LastModified Time Tobacco Smoking Status Never Smoker DANIELLE L'HEUREUX [facility] 02/07/2024 10:38:13 What Is Your Level Of [...] Kidney/Bladder Problems N Anemia N Heart Attack ([place]) N Diabetes Y Bleeding Disorder N Seizures/Epilepsy N AIDS/HIV N Congestive Heart Failure (CHF) N Asthma N Peripheral Vascular Disease N Sleep Apnea Y Hepatitis N Heart Disease N Pulmonary Embolism N Hypertension Y Osteoporosis N Past Encounters Encounter ID Performer Location Encounter Start Date Encounter Closed Date Diagnosis/Indication Diagnosis SNOMED-CT Code Diagnosis ICD10 Code Diagnosis Note [id number] GORDO Spann [address] [place] [address] 02/07/2024 09:31:02 02/07/2024 11:29:52 Pain of left hip joint 5274489550 55841 M25.552 Trochanter ic bursitis of left hip 9042620493 94938 M70.62 [id number] GORDO Mckoy [address] [place] [address] 09/25/2024 14:23:26 10/22/2024 07:38:05 Pain of right shoulder joint 8618320401 9674201 M25.511 Traumatic right rotator cuff tear 3865114525 7548358 S46.011A [id number] GORDO Mckoy [address] [place] [address] 12/12/2024 08:21:14 12/12/2024 08:56:34 Non-traumatic partial tear of right rotator cuff 2524824877 698491 M75.378 [id number] MD EMELI Cameron [address] [place] [address] 12/21/2024 08:21:48 12/21/2024 10:23:00 Nontraumatic complete rupture of rotator cuff of right shoulder 2328562271 795869 M75.121 Health Concerns Section Related Observation LastModified by Organization Detai ls LastModified Time None Recorded Concern Status LastModified by Organization Details LastModified Time None Recorded Advance Directives Directive None Recorded Payers Encounter Date Sequence Insurance Name Policy Number Policy Lee Covered Member ID Lee Member ID Guarantor Name 02/07/2024 1 [employer] MED[employer]AGE PLAN (MEDICARE REPLACEMENT HMO) [id number] 2 Fabian Moseley Divine [id number] Fabian Haskins 09/25/2024 1 [employer]AGE PLAN (MEDICARE REPLACEMENT HMO) [id number] 2 Fabian Erica Pradip Haskins [id number] Fabian Haskins 12/12/2024 1 [employer]AGE PLAN (MEDICARE REPLACEMENT HMO) [id number] 2 Fabian Moseley Divine [id number] Fabian Pradip Divine 12/21/2024 1 [employer]VANTAGE PLAN (MEDICARE REPLACEMENT HMO) [id number] 2 Fabian Moseley Divine [id number] Fabian Pradip Divine Notes Date Note Type Note Provider Name and Address Organization Details Recorded Time 4 text/html I am seeing the patient today under the supervision of Dr. Hiader who was available but who did not see the patient.HPI: Patient is a 78-year-old male presenting today for evaluation of left hip pain. He has had symptoms over the past several months. Has had previous back surgery and had met with his surgeon who stated that he may need another back procedure. He feels as if it is more his hip and would like a second opinion so that he can move forward with back surgery if necessary.. Much more bothersome at night when sleeping on that side. Pain is predominantly lateral. No anterior groin pain. Does have some pain that radiates down the foot and into the heal. Some numbness and tingling accompanying this. No treatment modalities to date.PAST MEDICAL/SURGICAL HISTORYPast medical history is reviewed per intake sheet.PHYSICAL FINDINGSOn physical examination, the patient is well appearing and in no apparent distress, alert and oriented x3. Gait is symmetric.Left hip reveals the skin to be intact, normal musculature, tenderness on palpation over the greater trochanter. No pain with range of motion of the hip, has full range of motion, no crepitus noted with range of motion. No significant pain with straight leg raise.X-rays were ordered, obtained and reviewed at [facility]: AP and lateral of the Left hip demonstrates a well maintained joint space in zone 1, 2, and 3. No cam lesion, pincer lesion, crossover sign. No evidence of AVN or acute fracture.ASSESSMENTSymptom atic trochanteric bursitis Left hip.KARIE reviewed the findings with the patient, discussed different treatment options. The patient wishes to proceed with cortison injection today. Discussed the role of physical therapy for symptom relief. Patient declined and a home exercise program was given instead. This procedure was performed on the Left hip . Prior to giving injection, explained the risk and benefits and patient demonstrated good understanding. Under sterile technique, the greater trochanter was palpated with the needle and retracted slightly until the injection of 4 cc Marcaine 0.25%. , 40 mgs Kenalog flowed freely into the trochanteric bursa. Tolerated this well. Post injection precautions reviewed. Instructed the patient to monitor the effects and follow-up as needed. Dimitry Olivas PA-C [address] [facility], [place], [address], [facility] 02/07/2024 11:24:16 4 text/html I am seeing the patient today under the supervision of Dr. Vegas who was available but who did not see the patient. 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 He was doing some yard work and tripped and fell on some cherelle landing with his shoulder against the base of a tree. Injury occurred 3 days ago and he has acute weakness and difficulty lifting the arm.Patient treated in our office previously for left shoulder dislocation with cuff tear. Ultimately underwent surgery for rotator cuff repair which she has done very well. Past Medical/Surgical History/Meds/Allergies reviewed and charted Physical Exam: The patient is well appearing and in no apparent distress. Alert and oriented x3. Gait is symmetric. afebrile, vital signs stable, in no apparent distress, oriented to person/place/time. Gait symmetric. skin intact without erythema. Right SHOULDER: no significant redness, warmth or deformity. Range of motion 155 degrees. Strength 4 -/5 with elevation and internal rotation. 3+/5 with external rotation. Impingement sign positive without significant crepitus. Acromioclavicular joint benign. Apprehension negative. Neurovascular Exam within normal limits. Contralateral normal SHOULDER: no redness, warmth, deformity. Range of motion full in all planes with no stiffness. Strength 5/5 all muscle groups. Apprehension negative. Impingement sign negative. Acromioclavicular joint benign with no cross body adduction pain. Neurovascular Exam wnl. Peripheral, vascular, lymphatic examination, skin, neurological, coordination, reflexes, sensation are within normal limits. Radiographs: 4 views of the right shoulder ordered, obtained and independently reviewed today at [facility]. AP, Grashey, Outlet and Axillary views show some moderate age-related degenerative changes about the shoulder including arthritis of the AC joint and glenohumeral joint mild to moderate. No superior head migration. No evidence for calcifications.. Impression: Acute traumatic rotator cuff tear right shoulder Plan: Discussion with Fabian regarding treatment options and possible need for surgical management. Recommendation is for MRI imaging. Recheck in 4 weeks for MRI review. All questions answered to his satisfaction. - Medical Practice speech recognition direct mail marketer software was used to create portions of this document. An attempt at proofreading has been made to minimize errors. Please call for corrections. Bobby Benitez PA-C [address] [place] [address] [address] [facility], [place], [address], [facility] 09/25/2024 15:21:45 5 text/html I am seeing the patient today under the supervision of Dr. Flood who was available but who did not see the patient. HPI: Fabian is a 79-year-old retired male who returns today for follow-up evaluation regarding his right dominant shoulder and review of recent MRI which was obtained. He continues to report pain and weakness of the shoulder. Shoulder symptoms considerably hinder his lifestyle and activities. Continues to rate his pain as 8/10. Is interested in definitive management. Past family, medical, social history and review of systems has been reviewed, updated and signed by me and is located in the patient's chart. Patient is status post previous left shoulder surgery by Dr. Rendon which she reports is doing very well. Examination: The patient is well appearing and in no apparent distress. Alert and oriented x3. Gait is symmetric. Right shoulder evaluation has some restricted endrange motion by 15 to 20 degrees in all planes. There is weakness 3+/5 with resisted rotator cuff strength testing of elevation and external rotation. Normal internal rotation strength. Pain reproduced with provocative impingement maneuvers. Peripheral, vascular, lymphatic examination, skin, neurological, coordination, reflexes, sensation are overall within normal limits. Right shoulder MRI imaging which was recently obtained and independently reviewed today at [facility]. Near full-thickness bursal surface tear involving supraspinatus as well as partial-thickness tearing of the subscapularis and biceps tendon. Some intra-articular degenerative changes. Official radiology report:Near full-thickness bursal surface tear of the anterior supraspinatusfootprintPart ial-thickness interstitial tear and tendinosis of thesubscapularis tendon allowing partial medial subluxation of the bicepstendon which also demonstrates partial-thickness longitudinal splittearInterstitial ganglion cyst at the infraspinatus myotendinous junctionMild degenerative changes at the inferior aspect of the glenohumeraljoint and inferior labrumWidening of the AC joint which can be seen in the setting of remotetrauma Impression: High-grade partial/near full-thickness rotator cuff tear right shoulder Plan: Difficult management situation for this active 79-year-old male. Given the magnitude of his high-grade partial rotator cuff tear unlikely that he will continue to do well with conservative management. Likely propagation of tear in the future. He does have some early degenerative arthritis and may likely be a candidate for reverse shoulder arthroplasty. Patient however is apprehensive about doing any shoulder replacement and is more interested in possible repair. I recommended a consultation with Dr. Palm to discuss MRI findings and review clinical exam to see if primary rotator cuff repair is feasible. Patient is in agreement with this plan for further consultation. Bobby Benitez PA-C [address], [place], [address], [facility] 12/12/2024 08:56:33 5 text/html Issue: Right shoulder irreparable anterior superior [...] views of the right shoulder performed at [facility] 09/25/2024 reviewed by me and Ortho PACS during the visit today. These demonstrate good preservation of glenohumeral and AC joint spaces. no proximal migration of the humeral head. Humeral head centered on axillary view. No dystrophic calcium deposition. Right shoulder MRI performed at [facility] 11/07/2024 independently reviewed by me on Ortho [...] aches and pains, the patient can take [id number] medication such as Tylenol or anti-inflammatories as needed; risks and benefits of medication discussed. Should call with more persistent pain. We will leave follow up open ended at this point. However should symptoms worsen or fail to improve to the patient's satisfaction, he is encouraged to give the office a call to be seen back for further evaluation and management. [facility] speech recognition direct mail marketer software was used to create portions of this document. An attempt at proofreading has been made to minimize errors. Please call for corrections. Oma Palm MD [facility] [address], [place], [address], [facility] 12/21/2024 10:22:59
[2024-12-28 17:04] LABS: Alanine Aminotransferase 17 U/L (0-40); Alkaline Phosphatase 73 U/L (39-117); Anion Gap 16 (12-20); Aspartate Amino Transferase 23 U/L (5-37); Bilirubin Direct 0.4 mg/dL (0.0-0.5); Bilirubin Total 0.7 mg/dL (0.0-1.0); Blood Urea Nitrogen 29 mg/dL (9-16); Calcium 9.7 mg/dL (8.4-10.2); Carbon Dioxide 22 mmol/L (22-29); Chloride 98 mmol/L (96-108); Creatinine Clr Calc Pharmacy 74.5; Estimated Glomerular Filt Rate > 60; Glucose Random 93 mg/dL (60-115); Magnesium 2.2 mg/dL (1.6-2.6); Potassium 4.5 mmol/L (3.3-5.1); Sodium 131 mmol/L (135-145); Total Protein 7.6 g/dL (6.5-8.0); Troponin-I High Sensitivity 53.8 ng/L (<3.5-35.0)
[2024-12-28 17:11] LABS: Influenza A PCR NEGATIVE (Negative); Influenza B PCR NEGATIVE (Negative); Resp Syncy Virus RNA Qual PCR NEGATIVE (Negative); SARS COV2 PCR INHOUSE NEGATIVE (Negative)
[2024-12-28 17:13] LABS: B Type Natriuretic Peptide 93 pg/mL (<100)
--- NOTE | 2024-12-28 17:16 | ED_ITS ---
HPI - Male Genitourinary General Chief complaint: Urogenital-Male Stated complaint: ?sepsis Time Seen by Provider: 12/28/24 17:16 Source: patient and EMS Mode of arrival: EMS Limitations: no limitations History of Present Illness ED Provider: Cyndee Rios PA-C HPI Narrative: Patient is a 79 year old assigned male at with a history of UTI on antibiotics over the last few days, CPS, HTN, and DM presenting to the emergency department today with dizziness, weakness, and SOB. Patient states that over the last week he has been on antibiotics for a UTI but he is getting more dizzy, weak, and having shortness of breath. Patient denies any lightheadedness, abdominal pain, nausea, vomiting, fever, chills, blurry vision, double vision, loss of vision, chest pain, back pain, night sweats, blood in his urine or stool, syncope or a near syncopal episode, recent trauma or falls, bowel incontinence, bladder incontinence, or any other complaints at this time. Related Data Home Medications ?Medication ?Instructions ?Recorded ?Confirmed blood sugar diagnostic #10 ea 02/27/21 12/12/24 aspirin 81 mg tablet,delayed 81 mg PO DAILY 05/18/23 12/12/24 release (Ecotrin Low Strength) cetirizine 10 mg tablet 10 mg PO DAILY 05/18/23 12/12/24 clopidogrel 75 mg tablet 75 mg PO DAILY 12/28/24 diltiazem HCl 300 mg 300 mg PO DAILY 12/28/24 capsule,extended release 24 hr furosemide 20 mg tablet 20 mg PO DAILY 12/28/24 isosorbide mononitrate 30 mg 30 mg PO DAILY 12/28/24 tablet,extended release 24 hr metoprolol tartrate 25 mg tablet 12.5 mg PO BID 12/28/24 rosuvastatin 5 mg tablet 5 mg PO DAILY 12/28/24 Previous Rx's ?Medication ?Instructions ?Recorded ascorbic acid (vitamin C) 1,000 mg 1 g PO DAILY 90 days #90 tabs 09/24/24 tablet Allergies Allergy/AdvReac Type Severity Reaction Status Date / Time morphine Allergy Severe agitation/severe Verified 12/28/24 15:42 skin symptoms oxycodone Allergy Severe agitation/severe Verified 12/28/24 15:42 skin symptoms Review of Systems 2 Constitutional: Constitutional: Reports no additional constitutional complaints, Denies chills, Denies fever(s), Denies night sweats and Reports weakness Eyes: Eyes: Reports no additional eye complaints, Denies blurry vision, Denies change in vision, Denies diplopia, Denies eye discharge, Denies loss of vision and Denies eye pain ENT: Reports dizziness Cardiovascular: Cardiovascular: Reports no additional cardiovascular complaints, Denies chest pain, Denies lightheadedness, Denies Loss of Consciousness and Reports dyspnea Respiratory: Respiratory: Reports no additional respiratory complaints and Reports dyspnea Gastrointestinal: Gastrointestinal: Reports no additional gastrointestinal complaints, Denies abdominal pain, Denies melena, Denies hematochezia, Denies change in bowel habits and Denies change in stool character Genitourinary: Genitourinary: Reports no additional male genitourinary complaints, Denies hematuria, Denies oliguria and Reports dysuria Musculoskeletal: Musculoskeletal: Reports no additional musculoskeletal complaints, Denies numbness and Denies tingling Neurologic: Reports dizziness, Denies loss of vision, Denies numbness, Denies tingling and Reports weakness Psychiatric: Psychiatric: Reports no additional psychiatric complaints Endocrine: Endocrine: Reports no additional endocrine complaints Hematologic/Lymphatic: Hematologic/Lymphatic: Reports no additional hematologic/lymphatic complaints Allergic/Immunologic: Allergic/Immunologic: Reports no additional allergic/immunologic complaints [facility] Past Medical History Attestation statement: The following information was validated with the patient. Source: old records reviewed and nursing notes reviewed Medical History Diabetes Peripheral neuropathy Sleep apnea HTN (hypertension) Hiatal hernia Diverticulosis CAD (coronary artery disease) Asthma Colitis Acute cystitis with hematuria Gross hematuria Rotator cuff impingement syndrome of left shoulder Primary osteoarthritis, left shoulder Poor urinary stream Benign prostatic hyperplasia with lower urinary tract symptoms Chronic prostatitis Hypogonadism in male Surgical History History of back surgery Hx of transurethral resection of prostate Hx of arthroscopy of right knee Hx of shoulder surgery History of esophagogastroduodenoscopy (EGD) H/O colonoscopy History of total knee replacement (TKR) Family History Family History Father No problems noted. Mother No problems noted. Social History Social History Are you a primary director long term care to a significant other at home: No Do you presently have visiting nurse or other home services: No Alcohol intake: current Alcohol intake frequency: a few times a week Patient Tobacco Use Status: Former Tobacco user Tobacco use type: Cigarette Smoked in Last 30 Days: No Use of substances other than those prescribed or required for medical reasons: No Advance Directives: No Advance Directives Information Provided: No Do you have a plan to hurt others: No Plan Physical Exam 2 Vital Signs: Vital Signs: Last Vital Signs Temp 101.5 F H 12/28/24 19:28 Pulse 82 12/28/24 19:23 Resp 28 H 12/28/24 19:23 BP 149/75 H 12/28/24 19:23 Pulse Ox 97 12/28/24 19:23 O2 Del Method Nasal Cannula 12/28/24 19:23 O2 Flow Rate 2 12/28/24 19:23 Oxygen Flow Rate 2 12/28/24 15:40 BMI result Body Mass Index 36.2 Const: General: cooperative, no acute distress, alert and awake Nutritional Appearance: well nourished Orientation/consciousness: patient oriented x3 Limitations: no limitations HEENT: Head: Yes normal to inspection and Yes atraumatic Ears: hearing grossly normal bilaterally and external ears normal General nose exam: Normal external nose present, no nasal discharge noted and no epistaxis Face and sinus: Yes normal facial exam, No abrasion and No laceration Mouth: Normal oral and palatal mucosa present, no drooling and no muffled voice Eyes: General: appearance normal, both eyes and all related structures P eriorbital: periorbital findings normal Eyelids: Yes eyelids normal C onjunctivae: conjunctivae normal Pupils: Equal, round and reactive pupils present EOM: EOMs intact bilaterally Neck: Neck: Yes normal visual inspection, Yes full ROM and Yes no lymphadenopathy Chest: Chest palpation & inspection: normal inspection of the chest Resp: Effort & Inspection: normal respiratory effort, able to speak in complete sentences and Actively coughing Quality: dry Auscultation: rhonchi lower bilaterally Cardio: Rate: tachycardic Rhythm: regular rhythm GI: Inspection: Yes normal to inspection Neuro: General: patient oriented x3, moves all extremities and CN's II-XI intact bilaterally Cranial nerves: Yes Equal, round and reactive pupils present Cognition (Neuro): normal cognition Extrem: General: Yes normal to inspection, Yes full ROM and Yes capillary refill normal Psych: Appearance: grossly normal Mental Status: mental status grossly normal Affect: normal affect Attitude: cooperative Thought process: N ormal thought process present Thought content: Normal thought content present Insight: Good insight present (Psych) Medications Administered Generic Name Dose Route Start Last Admin Trade Name Freq PRN Reason Stop Dose Admin Sodium Chloride 1,000 mls @ 999 mls/hr 12/28/24 19:15 12/28/24 19:28 Ns IV 12/28/24 20:15 999 mls/hr .Q1H1M NARDA Administration Discontinued Medications Generic Name Dose Route Start Last Admin Trade Name Freq PRN Reason Stop Dose Admin Ceftriaxone Sodium 1 gm 12/28/24 17:17 12/28/24 18:26 Ceftriaxone Sodium 1 Gm Vial IVPUSH 12/28/24 17:18 1 gm ONCE ONE Administration Acetaminophen 1,000 mg in 100 mls @ 400 mls/hr 12/28/24 17:57 12/28/24 19:29 Ofirmev IV 12/28/24 18:11 Infused ONCE ONE Infusion Medical Decision Making Medical Decision Making MDM Narrative: Patient is a 79 year old assigned male at with a history of UTI on antibiotics over the last few days, CPS, HTN, and DM presenting to the emergency department today with dizziness, weakness, and SOB. Patient's physical exam was as noted in the physical exam portion of this note. Patient's blood work showed an elevated WBC count of 12.4, initial trop of 53.8, repeat of 57.7. Patient's urine showed no acute process. Patient's EKG was unremarkable. Patient's chest x-ray showed a right mid lung consolidation. Patient's CT abdomen pelvis showed right middle and lower lobe consolidations. I became suspicious this patient was septic at 1717. Patient was mildly hypoxic prior to arrival and has remained on 2 liters of oxygen via nasal cannula. I spoke to the hospitalist team who agreed to admission. I explained my physical exam findings as well as all test results to the patient. I answered all questions asked by the patient. Patient verbalized agreement and understanding with this treatment plan and admission. I called and updated the patient's Zohra who can be reached at [phone] and would like regular updates. Differential Diagnosis Differential Diagnoses: The differential diagnosis associated with the presentation includes Hypoxia Pneumonia Sepsis Admission/Observation Consideration of admission/observation: Escalation of care including admission/observation considered Patient admitted as noted in the MDM Rationale portion of this note. Consult Healthcare Provider Management of the patient was discussed with: Hospitalist (agreed to admission as noted in the MDM Rationale portion of this note.) Lab Data [facility] Lab Attestation statement: I reviewed the patient's lab results. My interpretation of these results are in the MDM Rationale portion of this note. 12/28/24 16:22 12/28/24 16:22 Labs: Lab Results 12/28/24 12/28/24 12/28/24 Range/Units 16:22 17:54 17:55 WBC 12.4 H (4.8-10.8) X10*3/uL RBC 4.67 (4.60-5.80) X10*6/uL Hgb 13.2 L (14.0-18.0) g/dl Hct 39.8 L (42.0-52.0) % MCV 85.2 (80.0-98.0) fL MCH 28.3 (27.0-33.0) pg MCHC 33.2 (31.0-36.0) g/dl RDW 15.2 (11.0-16.0) % Plt Count 178 (160-400) X10*3/uL MPV 10.3 (9.4-12.4) fL Immature Gran % (Auto) 1.0 H (0.0-0.4) % Neut % (Auto) 83.0 H (45-73) % Lymph % (Auto) 5.1 L (20-40) % [place] % (Auto) 10.0 (2-11) % Eos % (Auto) 0.6 (0-4) % Baso % (Auto) 0.3 (0-2) % Lymph # (Auto) 0.6 L (1.2-4.9) X10*3/uL [place] # (Auto) 1.3 H (0.1-1.2) X10*3/uL Eos # (Auto) 0.1 (0.0-0.4) X10*3/uL Baso # (Auto) 0.0 (0.0-0.2) X10*3/uL Abs Immat Gran (auto) 0.13 H (0.00-0.03) X10*3/uL Absolute Neuts (auto) 10.3 H (2.0-8.3) x10*3/uL Absolute Nucleated RBC 0.000 (0.0-0.012) X10*3/uL Nucleated RBC % (auto) 0.0 (0.0-0.2) /100WBC PT 13.4 H (10.9-12.4) SEC INR 1.2 H (0.9-1.1) APTT 31.2 (26.0-36.8) SEC Sodium 131 L (135-145) mmol/L Potassium 4.5 (3.3-5.1) mmol/L Chloride 98 (96-108) mmol/L Carbon Dioxide 22 (22-29) mmol/L Anion Gap 16 (12-20) BUN 29 H (9-16) mg/dL Creatinine 1.02 (0.5-1.4) mg/dL Estim Creat Clear Calc 74.5 Estimated GFR > 60 Random Glucose 93 (60-115) mg/dL Lactic Acid 1.5 (0.5-2.0) mmol/L Calcium 9.7 (8.4-10.2) mg/dL Magnesium 2.2 (1.6-2.6) mg/dL Total Bilirubin 0.7 (0.0-1.0) mg/dL Direct Bilirubin 0.4 (0.0-0.5) mg/dL AST 23 (5-37) U/L ALT 17 (0-40) U/L Alkaline Phosphatase 73 (39-117) U/L Troponin I High Sens 53.8 H 57.7 H (<3.5-35.0) ng/L B-Natriuretic Peptide 93 (<100) pg/mL Total Protein 7.6 (6.5-8.0) g/dL Albumin 4.0 (3.5-5.0) g/dL Urine Color Urine Appearance Urine pH (5.0-9.0) Ur Specific [place] (1.005-1.025) Urine Protein (Neg-Trace) mg/dL Urine Glucose (UA) (Negative) mg/dL Urine Ketones (Negative) mg/dL Urine Blood (Negative) Urine Nitrite (Negative) Ur Leukocyte Esterase (Negative) Urine RBC (0-2) /HPF Urine WBC (0-5) /HPF Ur Squamous Epith Cells (0-2) /HPF Urine Bacteria (None Seen) Hyaline Casts (0-2) /LPF Influenza Type A (PCR) NEGATIVE (Negative) Influenza Type B (PCR) NEGATIVE (Negative) RSV RNA Qual (PCR) NEGATIVE (Negative) SARS-CoV-2 RNA (RT-PCR) NEGATIVE (Negative) 12/28/24 Range/Units 17:56 WBC (4.8-10.8) X10*3/uL RBC (4.60-5.80) X10*6/uL Hgb (14.0-18.0) g/dl Hct (42.0-52.0) % MCV (80.0-98.0) fL MCH (27.0-33.0) pg MCHC (31.0-36.0) g/dl RDW (11.0-16.0) % Plt Count (160-400) X10*3/uL MPV (9.4-12.4) fL Immature Gran % (Auto) (0.0-0.4) % Neut % (Auto) (45-73) % Lymph % (Auto) (20-40) % [place] % (Auto) (2-11) % Eos % (Auto) (0-4) % Baso % (Auto) (0-2) % Lymph # (Auto) (1.2-4.9) X10*3/uL [place] # (Auto) (0.1-1.2) X10*3/uL Eos # (Auto) (0.0-0.4) X10*3/uL Baso # (Auto) (0.0-0.2) X10*3/uL Abs Immat Gran (auto) (0.00-0.03) X10*3/uL Absolute Neuts (auto) (2.0-8.3) x10*3/uL Absolute Nucleated RBC (0.0-0.012) X10*3/uL Nucleated RBC % (auto) (0.0-0.2) /100WBC PT (10.9-12.4) SEC INR (0.9-1.1) APTT (26.0-36.8) SEC Sodium (135-145) mmol/L Potassium (3.3-5.1) mmol/L Chloride (96-108) mmol/L Carbon Dioxide (22-29) mmol/L Anion Gap (12-20) BUN (9-16) mg/dL Creatinine (0.5-1.4) mg/dL Estim Creat Clear Calc Estimated GFR Random Glucose (60-115) mg/dL Lactic Acid (0.5-2.0) mmol/L Calcium (8.4-10.2) mg/dL Magnesium (1.6-2.6) mg/dL Total Bilirubin (0.0-1.0) mg/dL Direct Bilirubin (0.0-0.5) mg/dL AST (5-37) U/L ALT (0-40) U/L Alkaline Phosphatase (39-117) U/L Troponin I High Sens (<3.5-35.0) ng/L B-Natriuretic Peptide (<100) pg/mL Total Protein (6.5-8.0) g/dL Albumin (3.5-5.0) g/dL Urine Color Dark Yellow Urine Appearance Clear Urine pH 5.5 (5.0-9.0) Ur Specific [place] 1.025 (1.005-1.025) Urine Protein 300 (3+) H (Neg-Trace) mg/dL Urine Glucose (UA) Negative (Negative) mg/dL Urine Ketones 80 (Negative) mg/dL Urine Blood Small (1+) H (Negative) Urine Nitrite Negative (Negative) Ur Leukocyte Esterase Negative (Negative) Urine RBC 3-5 H (0-2) /HPF Urine WBC 0-5 (0-5) /HPF Ur Squamous Epith Cells 0-2 (0-2) /HPF Urine Bacteria None Seen (None Seen) Hyaline Casts 3-5 (0-2) /LPF Influenza Type A (PCR) (Negative) Influenza Type B (PCR) (Negative) RSV RNA Qual (PCR) (Negative) SARS-CoV-2 RNA (RT-PCR) (Negative) Independent Interpretation I performed an independent interpretation of an: EKG, Plain X-Ray and CT Scan Interpretation: My interpretation is in agreement with the radiologist's impression of these imaging studies. L CLINICAL HISTORY: weakness 1 view chest x-ray Comparison: None Findings: Portions of the exam is obscured by overlying material. There is consolidation in the right lung, possible pneumonia or subsegmental atelectasis. Heart size is normal. No acute fracture. IMPRESSION: 1. Right mid lung consolidation, differential considerations noted. This document has been electronically signed by: Omkar Joshi MD on 12/28/2024 18:54:01 Dictated By: Omkar Joshi MD Signed By: Electronically signed by Omkar Joshi MD 12/28/24 1854 Report Number: [id number]: Total DLP = 762.00 mGy-cm CLINICAL HISTORY: flank pain, fever, hx of stones CT abdomen and pelvis without contrast Comparison: None Findings: There is right middle and lower lobe consolidation, possible pneumonia Unremarkable gallbladder and solid organs. No urolithiasis. No bowel obstruction, pneumoperitoneum, or pneumatosis. There are diverticula in the descending and sigmoid colon without imaging evidence of diverticulitis. Pelvic contents unremarkable. Normal appendix. No acute fracture. IMPRESSION: Right middle and lower lobe consolidation, differential considerations noted. This document has been electronically signed by: Omkar Joshi MD on 12/28/2024 18:47:13 Dictated By: Omkar Joshi MD Signed By: Electronically signed by Omkar Joshi MD 12/28/24 1848 Vent. Rate: 100 BPM Atrial Rate: 100 BPM P-R Int: 136 ms QRS Dur: 98 ms QT Int: 352 ms P-R-T Axes: 37 25 46 degrees QTcB Int: 454 ms Normal sinus rhythm Normal ECG When compared with ECG of 19-May-2023 13:09, Premature atrial complexes are no longer Present Nonspecific T wave abnormality no longer evident in Lateral leads DD/ 1608 Radiology Impression Discussion of test interpretation with radiology: I have reviewed the radiologist's reading. Independent Historian Clinical information obtained from an independent historian. History obtained from or confirmed by: EMS (EMS provided additional history and confirmed the history provided by the patient.) Chronic Conditions Patient?s care impacted by: Diabetes and Hypertension Critical Care Time Critical Care Time Critical Care Time: Yes Total Critical Care Time: 44 Attestation: I spent 44 minutes of Critical Care Time with this patient. This does not include time spent on separately reported billable procedures. Discharge Plan Discharge Clinical Impression: Pneumonia, Sepsis Patient Disposition: Admitted As Inpatient Prescriptions: No Action ascorbic acid (vitamin C) 1,000 mg tablet 1 g PO DAILY 90 Days Qty: 90 1RF isosorbide mononitrate 30 mg tablet extended release 24 hr 30 mg PO DAILY clopidogrel 75 mg tablet 75 mg PO DAILY diltiazem HCl 300 mg capsule,extended release 24hr 300 mg PO DAILY furosemide 20 mg tablet 20 mg PO DAILY rosuvastatin 5 mg tablet 5 mg PO DAILY metoprolol tartrate 25 mg tablet 12.5 mg PO BID cetirizine 10 mg tablet 10 mg PO DAILY aspirin [Ecotrin Low Strength] 81 mg Tablet,Delayed Release (Dr/Ec) 81 mg PO DAILY (DME) blood sugar diagnostic Strip See Rx Instructions Not Applicable BID Qty: 10 Rx Instructions: As directed Print Language: Hungarian
[2024-12-28 17:47] VITALS: BP 159/88; PULSE 105; RESP 20; TEMP 39.7; O2SAT 94
[2024-12-28 18:02] LABS: Appearance Urine Clear; Color Urine Dark Yellow; Glucose Urine UA Negative (Negative); Leukocyte Esterase Urine Negative (Negative); Nitrite Urine Negative (Negative); PH 5.5 (5.0-9.0); Specific Gravity - Urine 1.025 (1.005-1.025); UMIC TRIGGER UACC YES; Urine Blood Small (1+) (Negative); Urine Ketones 80 mg/dL (Negative); Urine Protein 300 (3+) mg/dL (Neg-Trace)
[2024-12-28 18:17] LABS: Bacteria Urine None Seen (None Seen); Squamous Epithelial Cell Urine 0-2 /HPF (0-2); WBC Urine 0-5 /HPF (0-5)
[2024-12-28 18:17] LABS: INTERNATIONAL NORM RATIO 1.2 (0.9-1.1); Prothrombin Time 13.4 SEC (10.9-12.4)
[2024-12-28 18:19] LABS: Partial Thromboplastin Time 31.2 SEC (26.0-36.8)
[2024-12-28] MEDS: cefTRIAXone sodium 1 GM VIAL IVPUSH (18:26)
[2024-12-28 18:27] VITALS: BP 163/88; PULSE 98; RESP 18; O2SAT 98
[2024-12-28] MEDS: Acetaminophen 1,000 MG/100 ML PIGGYBACK 400 MG IV (18:27)
[2024-12-28 18:34] LABS: Lactic Acid 1.5 mmol/L (0.5-2.0)
[2024-12-28 18:40] LABS: Troponin-I High Sensitivity 57.7 ng/L (<3.5-35.0)
[2024-12-28 19:23] VITALS: BP 149/75; PULSE 82; RESP 28; TEMP 38.6; O2SAT 97
[2024-12-28 19:28] VITALS: TEMP 38.6
[2024-12-28] MEDS: 0.9 % Sodium Chloride 1,000 ML 999 ML IV (19:28)
--- NOTE | 2024-12-28 20:24 | PM.IMHP ---
History of Present Illness Date of Service: 12/28/24 Attending physician on admission: Haile Toribio Chief Complaint: SOB, weakness Pt is a 79-year-old male with a PMH significant for?CAD s/p stenting x2 in 10/2024, HTN, peripheral neuropathy, diet-controlled type 2 diabetes, and recurrent UTIs who presents to the ED with?fever, chills, cough, weakness, and SOB times 2-3 days. Cough has been mostly nonproductive. Also complains of lightheadedness, dizziness, myalgias, and simply feeling ?sicker than I have ever felt?. Pt recently experienced polyuria and dysuria, called PCP who started him on Macrobid for UTI which he has been taking for the past few days. Currently denies polyuria or dysuria. Denies chest pain/pressure, palpitations. No nausea, vomiting, abdominal pain. In the ED pt was febrile up to 103.4, tachycardic up to 105, tachypneic up to 28, and hypertensive up to 172/98. Labs were significant for leukocytosis 12.4, sodium 131, and initial troponin 53.8 with repeat flat at 57.7. Stable H&H. Renal function WNL. Hepatic function WNL. BNP 93. UA negative for UTI. Tested negative for flu, COVID, RSV. CXR showed right mid lung consolidation concerning for pneumonia or subsegmental atelectasis. Abdomen and pelvis CT found right middle and lower lobe consolidation concerning for pneumonia. EKG demonstrated normal sinus rhythm without evidence of significant ST elevations or depressions. Pt was treated with acetaminophen, IVF, and ceftriaxone. Pt will be admitted to the hospital for treatment and further evaluation of pneumonia with sepsis. Review of Systems Review of Systems: Negative except for that which is stated in the [facility] Medical History Diabetes Peripheral neuropathy Sleep apnea HTN (hypertension) Hiatal hernia Diverticulosis CAD (coronary artery disease) Asthma Colitis Acute cystitis with hematuria Gross hematuria Rotator cuff impingement syndrome of left shoulder Primary osteoarthritis, left shoulder Poor urinary stream Benign prostatic hyperplasia with lower urinary tract symptoms Chronic prostatitis Hypogonadism in male Family History Father No problems noted. Mother No problems noted. Surgical History History of back surgery Hx of transurethral resection of prostate Hx of arthroscopy of right knee Hx of shoulder surgery History of esophagogastroduodenoscopy (EGD) H/O colonoscopy History of total knee replacement (TKR) Social History Are you a primary nurse wound care to a significant other at home: No Do you presently have visiting nurse or other home services: No Alcohol intake: current Alcohol intake frequency: a few times a week Patient Tobacco Use Status: Former Tobacco user Tobacco use type: Cigarette Smoked in Last 30 Days: No Use of substances other than those prescribed or required for medical reasons: No Advance Directives: No Advance Directives Information Provided: No Do you have a plan to hurt others: No Plan Meds Allergies Allergy/AdvReac Type Severity Reaction Status Date / Time morphine Allergy Severe agitation/severe Verified 12/28/24 15:42 skin symptoms oxycodone Allergy Severe agitation/severe Verified 12/28/24 15:42 skin symptoms Home Medications ?Medication ?Instructions ?Recorded ?Confirmed ?Last Taken ?Type blood sugar diagnostic #10 ea 02/27/21 12/12/24 Unknown History aspirin 81 mg tablet,delayed 81 mg PO DAILY 05/18/23 12/28/24 12/28/24 History release (Ecotrin Low Strength) cetirizine 10 mg tablet 10 mg PO DAILY 05/18/23 12/28/24 12/28/24 History ascorbic acid (vitamin C) 1,000 mg 1,000 mg PO DAILY 12/28/24 12/28/24 12/28/24 History tablet clopidogrel 75 mg tablet 75 mg PO DAILY 12/28/24 12/28/24 12/28/24 History diltiazem HCl 300 mg 300 mg PO DAILY 12/28/24 12/28/24 12/28/24 History capsule,extended release 24 hr furosemide 20 mg tablet 20 mg PO DAILY 12/28/24 12/28/24 12/28/24 History isosorbide mononitrate 30 mg 30 mg PO DAILY 12/28/24 12/28/24 12/28/24 History tablet,extended release 24 hr melatonin 10 mg tablet 10 mg PO BEDTIME PRN Sleep 12/28/24 12/28/24 Unknown History metoprolol tartrate 25 mg tablet 25 mg PO DAILY 12/28/24 12/28/24 12/28/24 History rosuvastatin 5 mg tablet 5 mg PO DAILY 12/28/24 12/28/24 12/28/24 History Physical Exam Vital Signs and Narrative: Vital Signs: Last Vital Signs Temp 101.5 F H 12/28/24 19:28 Pulse 82 12/28/24 19:23 Resp 28 H 12/28/24 19:23 BP 149/75 H 12/28/24 19:23 Pulse Ox 97 12/28/24 19:23 O2 Del Method Nasal Cannula 12/28/24 19:23 O2 Flow Rate 2 12/28/24 19:23 Oxygen Flow Rate 2 12/28/24 15:40 BMI result Body Mass Index 36.2 General: AOx3, no acute distress Resp: CTA bilaterally CVS: S1, S2, RRR GI: +BS, NT, no distention Skin: Warm, dry Neuro: Cranial nerves II-XII grossly intact bilaterally. Motor grossly intact bilaterally Extremities: No edema Psych: Appropriate affect Results Labs 12/28/24 16:22 12/28/24 16:22 Labs: Laboratory Results - last 24 hr 12/28/24 12/28/24 12/28/24 16:22 17:54 17:55 MCV 85.2 MCH 28.3 MCHC 33.2 RDW 15.2 Plt Count 178 MPV 10.3 Immature Gran % (Auto) 1.0 H Neut % (Auto) 83.0 H Lymph % (Auto) 5.1 L [place] % (Auto) 10.0 Eos % (Auto) 0.6 Baso % (Auto) 0.3 Lymph # (Auto) 0.6 L [place] # (Auto) 1.3 H Eos # (Auto) 0.1 Baso # (Auto) 0.0 Abs Immat Gran (auto) 0.13 H Absolute Neuts (auto) 10.3 H Absolute Nucleated RBC 0.000 Nucleated RBC % (auto) 0.0 PT 13.4 H INR 1.2 H APTT 31.2 Anion Gap 16 Estim Creat Clear Calc 74.5 Estimated GFR > 60 Random Glucose 93 Lactic Acid 1.5 Calcium 9.7 Magnesium 2.2 Total Bilirubin 0.7 Direct Bilirubin 0.4 AST 23 ALT 17 Alkaline Phosphatase 73 Troponin I High Sens 53.8 H 57.7 H B-Natriuretic Peptide 93 Total Protein 7.6 Albumin 4.0 Urine Color Urine Appearance Urine pH Ur Specific [place] Urine Protein Urine Glucose (UA) Urine Ketones Urine Blood Urine Nitrite Ur Leukocyte Esterase Urine RBC Urine WBC Ur Squamous Epith Cells Urine Bacteria Hyaline Casts Influenza Type A (PCR) NEGATIVE Influenza Type B (PCR) NEGATIVE RSV RNA Qual (PCR) NEGATIVE SARS-CoV-2 RNA (RT-PCR) NEGATIVE 12/28/24 17:56 MCV MCH MCHC RDW Plt Count MPV Immature Gran % (Auto) Neut % (Auto) Lymph % (Auto) [place] % (Auto) Eos % (Auto) Baso % (Auto) Lymph # (Auto) [place] # (Auto) Eos # (Auto) Baso # (Auto) Abs Immat Gran (auto) Absolute Neuts (auto) Absolute Nucleated RBC Nucleated RBC % (auto) PT INR APTT Anion Gap Estim Creat Clear Calc Estimated GFR Random Glucose Lactic Acid Calcium Magnesium Total Bilirubin Direct Bilirubin AST ALT Alkaline Phosphatase Troponin I High Sens B-Natriuretic Peptide Total Protein Albumin Urine Color Dark Yellow Urine Appearance Clear Urine pH 5.5 Ur Specific [place] 1.025 Urine Protein 300 (3+) H Urine Glucose (UA) Negative Urine Ketones 80 Urine Blood Small (1+) H Urine Nitrite Negative Ur Leukocyte Esterase Negative Urine RBC 3-5 H Urine WBC 0-5 Ur Squamous Epith Cells 0-2 Urine Bacteria None Seen Hyaline Casts 3-5 Influenza Type A (PCR) Influenza Type B (PCR) RSV RNA Qual (PCR) SARS-CoV-2 RNA (RT-PCR) Assessment and Plan (1) Sepsis: Status: Acute (2) Multifocal pneumonia: Status: Acute Plan Pt is a 79-year-old male with a PMH significant for?CAD s/p stenting x2 in 10/2024, HTN, peripheral neuropathy, diet-controlled type 2 diabetes, and recurrent UTIs who presents to the ED with?fever, chills, cough, weakness, and SOB times 2-3 days. Pt will be admitted to the hospital for treatment and further evaluation of pneumonia with sepsis. Multifocal pneumonia with sepsis Pt with fever, chills, cough, weakness, SOB, Imaging showing right middle and lower lobe consolidations Meets sepsis criteria: Fever, tachycardia, tachypnea, and leukocytosis; lactic acid 1.5 Pt given IVF and started on broad-spectrum antibiotics in the ED Will treat with ceftriaxone azithromycin, started 12/28/2024 Monitor respiratory status CAD S/p stenting in 10/2024 Continue aspirin, clopidogrel, statin, and isosorbide mononitrate HTN Continue metoprolol Diet-controlled type 2 diabetes Diabetic diet Full Code Attending:?Dr. Toribio DVT Prophylaxis: Lovenox Pt will require a hospitalization of at least two nights for treatment of multifocal pneumonia with sepsis that will require hospital level care for administration of IV antibiotics. Quality Stroke Does the patient have a stroke diagnosis?: No VTE Prior VTE?: No VTE Risk Level:: Medical - moderate - high VTE Device Contraindication: Treatment Not Indicated VTE Drug Contraindication: N/A - Med Ordered
--- NOTE | 2024-12-28 20:55 | PHA.MEDREC ---
Addendum entered by Isak Mena [facility] 12/28/24 21:05: med rec reviewed Original Note: Pharmacy Consult ? Medication Reconciliation Pharmacy has completed the medication reconciliation. Confirmed medications with patient. Patient was not sure if he was still taking the Clopidogrel 75mg tab when asking him but when I told him it was for blood clotting and when I showed him a picture of the tablet with the markings on it the patient stated that seemed more familiar with that and was able to confirm his Dr recently put him on a medication to prevent blood clotting after he had a stint put in his heart and believes it is that and he states it is taken once daily. He confirmed the Metoprolol 25 mg tab and states he takes 1 tab daily instead of 1/2 tab bid and states it is easier then cutting it in half. He states he took his medications this morning.
[2024-12-28] MEDS: Azithromycin 500 MG in 0.9 % Sodium Chloride 250 ML 125 MG IV (21:58)
[2024-12-28] MEDS: Enoxaparin Sodium 40 MG/0.4 ML SYRINGE SUBCUT (21:58)
[2024-12-28 22:03] VITALS: BP 156/85; PULSE 73; RESP 19; TEMP 37.4; O2SAT 96
[2024-12-29] VITALS (9 sets, daily range): BP systolic 139–171; BP diastolic 70–87; PULSE 62–102; RESP 12–22; TEMP 36–38.6; O2SAT 96–99; BMI 36.2
[2024-12-29] MEDS: Acetaminophen 325 MG TABLET 650 MG PO ×3 (00:24→20:02)
[2024-12-29] MEDS: Albuterol Sulfate (0.083%) 2.5 MG/3 ML VIAL.NEB INHALE (01:12)
[2024-12-29 06:21] LABS: MANUAL DIFF FLAG NO
[2024-12-29] MEDS: Acetaminophen 1,000 MG/100 ML PIGGYBACK 400 MG IV (06:23)
[2024-12-29 06:27] LABS: Basophils Percent Auto 0.3 % (0-2); Eosinophils Percent Auto 0.2 % (0-4); Hematocrit 38.4 % (42.0-52.0); Hemoglobin 12.5 g/dl (14.0-18.0); Imm Gran Abs Auto 0.04 X10*3/uL (0.00-0.03); Imm Gran Pct Auto 0.4 % (0.0-0.4); Lymphocytes Absolute Auto 0.5 X10*3/uL (1.2-4.9); Lymphocytes Percent Auto 5.1 % (20-40); Mean Corpuscular HGB Conc 32.6 g/dl (31.0-36.0); Mean Corpuscular Hemoglobin 28.5 pg (27.0-33.0); Mean Corpuscular Volume 87.5 fL (80.0-98.0); Mean Platelet Volume 9.9 fL (9.4-12.4); Monocytes Absolute Auto 1.1 X10*3/uL (0.1-1.2); Monocytes Percent Auto 11.1 % (2-11); Neutrophils Absolute Auto 8.5 x10*3/uL (2.0-8.3); Neutrophils Percent Auto 82.9 % (45-73); Platelet Count 140 X10*3/uL (160-400); Red Blood Count 4.39 X10*6/uL (4.60-5.80); Red Cell Distribution Width 15.3 % (11.0-16.0); White Blood Count 10.2 X10*3/uL (4.8-10.8)
[2024-12-29 06:38] LABS: Anion Gap 15 (12-20); Blood Urea Nitrogen 32 mg/dL (9-16); Calcium 9.1 mg/dL (8.4-10.2); Carbon Dioxide 20 mmol/L (22-29); Chloride 105 mmol/L (96-108); Creatinine Clr Calc Pharmacy 90.5; Estimated Glomerular Filt Rate > 60; Glucose Random 100 mg/dL (60-115); Sodium 135 mmol/L (135-145)
[2024-12-29 08:05] LABS: Glucose, Whole Blood 132 mg/dL (60-115)
[2024-12-29] MEDS: Loratadine 10 MG TABLET PO (08:11)
[2024-12-29] MEDS: Furosemide 20 MG TABLET PO (08:11)
[2024-12-29] MEDS: Metoprolol Tartrate 25 MG TABLET PO (08:11)
[2024-12-29] MEDS: Ascorbic Acid 500 MG TABLET 1000 MG PO (08:12)
[2024-12-29] MEDS: Isosorbide Mononitrate 30 MG TAB.ER.24H PO (08:12)
[2024-12-29] MEDS: Atorvastatin Calcium 20 MG TABLET PO (08:13)
[2024-12-29] MEDS: Aspirin Enteric Coated 81 MG TABLET.DR PO (08:13)
[2024-12-29] MEDS: Clopidogrel Bisulfate 75 MG TABLET PO (08:13)
[2024-12-29 08:52] LABS: Procalcitonin 0.45 ng/mL
[2024-12-29] MEDS: dilTIAZem HCL CD 300 MG CAP.ER.24H PO (09:52)
[2024-12-29] MEDS: predniSONE 20 MG TABLET 40 MG PO (09:52)
[2024-12-29] MEDS: 0.9 % Sodium Chloride Flush 3 ML SYRINGE IVFLUSH ×3 (09:53→19:43)
--- NOTE | 2024-12-29 10:15 | HO.PM.IMPN ---
Subjective Subjective Date of Service: 12/29/24 Interval History: febrile to 103.4 yesterday afternoon; fever has resolved now coughing; wheezing has improved dyspnea improved Review of Systems Review of Systems: Yes all other systems are reviewed and are negative Physical Exam Vital Signs: Vital Signs: Last Vital Signs Temp 96.8 F 12/29/24 08:00 Pulse 86 12/29/24 08:11 Resp 20 12/29/24 08:00 BP 171/84 H 12/29/24 08:12 Pulse Ox 98 12/29/24 08:00 O2 Del Method Nasal Cannula 12/29/24 08:00 O2 Flow Rate 2 12/29/24 08:00 Oxygen Flow Rate 2 12/28/24 15:40 BMI result Body Mass Index 36.2 Gen: in no acute distress HEENT: sclera anicteric, moist mucus membranes Neck: supple Lungs: diminished R base Heart: regular rate and rhythm, no murmurs Abd: soft, non-tender, non-distended Ext: no edema Skin: warm/well-perfused Neuro: alert and oriented x3, no focal findings Psych: appropriate affect Objective Data Active Medications Acetaminophen (Acetaminophen 325 Mg Tablet) 650 mg PO Q6H PRN PRN Reason: Pain, Mild 1-3,fever,headache Last Admin: 12/29/24 00:24 Dose: 650 mg Documented By: SOHAIL Albuterol Sulfate (Albuterol Sulfate (0.083%) 2.5 Mg/3 Ml Vial.Neb) 2.5 mg INHALE Q6H PRN PRN Reason: Shortness of Breath/Wheezing Last Admin: 12/29/24 01:12 Dose: 2.5 mg Documented By: EMIL Ascorbic Acid (Ascorbic Acid 500 Mg Tablet) 1,[address] [facility] Last Admin: 12/29/24 08:12 Dose: 1,000 mg Documented By: HOANG Aspirin (Aspirin Enteric Coated 81 Mg Tablet.) [address] [facility] Last Admin: 12/29/24 08:13 Dose: 81 mg Documented By: HOANG Atorvastatin Calcium (Atorvastatin Calcium 20 Mg Tablet) [address] [facility] Last Admin: 12/29/24 08:13 Dose: 20 mg Documented By: HOANG Calcium Carbonate (Calcium Carbonate 750 Mg Tab.Chew) 750 mg PO Q4H PRN PRN Reason: Heartburn Ceftriaxone Sodium (Ceftriaxone Sodium 1 Gm Vial) [address] [facility] Clopidogrel Bisulfate (Clopidogrel Bisulfate 75 Mg Tablet) [address] [facility] Last Admin: 12/29/24 08:13 Dose: 75 mg Documented By: HOANG Diltiazem HCl (Diltiazem Hcl Cd 300 Mg Cap.Er.24h) [address] [facility]; Protocol Last Admin: 12/29/24 09:52 Dose: 300 mg Documented By: HORACE Enoxaparin Sodium (Enoxaparin Sodium 40 Mg/0.4 Ml Syringe) [address] [facility] Last Admin: 12/28/24 21:58 Dose: 40 mg Documented By: SOHAIL Furosemide (Furosemide 20 Mg Tablet) [address] [facility]; Protocol Last Admin: 12/29/24 08:11 Dose: 20 mg Documented By: HOANG Azithromycin 500 mg/ Sodium (Chloride) 250 mls @ 125 mls/hr IV Q24H [facility] Last Infusion: 12/29/24 00:24 Dose: Infused Documented By: SOHAIL Isosorbide Mononitrate (Isosorbide Mononitrate 30 Mg Tab.Er.24h) [address] [facility]; Protocol Last Admin: 12/29/24 08:12 Dose: 30 mg Documented By: HOANG Loratadine (Loratadine 10 Mg Tablet) [address] [facility] Last Admin: 12/29/24 08:11 Dose: 10 mg Documented By: HOANG Magnesium Hydroxide (Milk Of Magnesia 30 Ml Oral.Susp) 30 ml PO DAILY PRN PRN Reason: Constipation Melatonin (Melatonin 3 Mg Tablet) 6 mg PO BEDTIME PRN PRN Reason: Insomnia Metoprolol Tartrate (Metoprolol Tartrate 25 Mg Tablet) [address] [facility]; Protocol Last Admin: 12/29/24 08:11 Dose: 25 mg Documented By: HOANG Ondansetron HCl (Ondansetron Hcl 4 Mg/2 Ml Vial) 4 mg IVPUSH Q8H PRN PRN Reason: Nausea and Vomiting Prednisone (Prednisone 20 Mg Tablet) [address] [facility] Stop: 01/02/25 09:01 Last Admin: 12/29/24 09:52 Dose: 40 mg Documented By: HORACE Sodium Chloride (0.9 % Sodium Chloride Flush 3 Ml Syringe) [address] [facility] Last Admin: 12/29/24 09:53 Dose: 3 ml Documented By: HORACE Labs 12/29/24 06:16 12/29/24 06:16 Labs: Laboratory Results - last 24 hr 12/28/24 12/28/24 12/28/24 16:22 17:54 17:55 MCV 85.2 MCH 28.3 MCHC 33.2 RDW 15.2 Plt Count 178 MPV 10.3 Immature Gran % (Auto) 1.0 H Neut % (Auto) 83.0 H Lymph % (Auto) 5.1 L [place] % (Auto) 10.0 Eos % (Auto) 0.6 Baso % (Auto) 0.3 Lymph # (Auto) 0.6 L [place] # (Auto) 1.3 H Eos # (Auto) 0.1 Baso # (Auto) 0.0 Abs Immat Gran (auto) 0.13 H Absolute Neuts (auto) 10.3 H Absolute Nucleated RBC 0.000 Nucleated RBC % (auto) 0.0 PT 13.4 H INR 1.2 H APTT 31.2 Anion Gap 16 Estim Creat Clear Calc 74.5 Estimated GFR > 60 POC Glucose Random Glucose 93 Lactic Acid 1.5 Calcium 9.7 Magnesium 2.2 Total Bilirubin 0.7 Direct Bilirubin 0.4 AST 23 ALT 17 Alkaline Phosphatase 73 Troponin I High Sens 53.8 H 57.7 H B-Natriuretic Peptide 93 Total Protein 7.6 Albumin 4.0 Procalcitonin Urine Color Urine Appearance Urine pH Ur Specific [place] Urine Protein Urine Glucose (UA) Urine Ketones Urine Blood Urine Nitrite Ur Leukocyte Esterase Urine RBC Urine WBC Ur Squamous Epith Cells Urine Bacteria Hyaline Casts Influenza Type A (PCR) NEGATIVE Influenza Type B (PCR) NEGATIVE RSV RNA Qual (PCR) NEGATIVE SARS-CoV-2 RNA (RT-PCR) NEGATIVE 12/28/24 12/29/24 12/29/24 17:56 06:16 07:45 MCV 87.5 MCH 28.5 MCHC 32.6 RDW 15.3 Plt Count 140 L MPV 9.9 Immature Gran % (Auto) 0.4 Neut % (Auto) 82.9 H Lymph % (Auto) 5.1 L [place] % (Auto) 11.1 H Eos % (Auto) 0.2 Baso % (Auto) 0.3 Lymph # (Auto) 0.5 L [place] # (Auto) 1.1 Eos # (Auto) 0.0 Baso # (Auto) 0.0 Abs Immat Gran (auto) 0.04 H Absolute Neuts (auto) 8.5 H Absolute Nucleated RBC 0.000 Nucleated RBC % (auto) 0.0 PT INR APTT Anion Gap 15 Estim Creat Clear Calc 90.5 Estimated GFR > 60 POC Glucose 132 H Random Glucose 100 Lactic Acid Calcium 9.1 D Magnesium Total Bilirubin Direct Bilirubin AST ALT Alkaline Phosphatase Troponin I High Sens B-Natriuretic Peptide Total Protein Albumin Procalcitonin 0.45 Urine Color Dark Yellow Urine Appearance Clear Urine pH 5.5 Ur Specific [place] 1.025 Urine Protein 300 (3+) H Urine Glucose (UA) Negative Urine Ketones 80 Urine Blood Small (1+) H Urine Nitrite Negative Ur Leukocyte Esterase Negative Urine RBC 3-5 H Urine WBC 0-5 Ur Squamous Epith Cells 0-2 Urine Bacteria None Seen Hyaline Casts 3-5 Influenza Type A (PCR) Influenza Type B (PCR) RSV RNA Qual (PCR) SARS-CoV-2 RNA (RT-PCR) Assessment and Plan (1) Sepsis: Status: Acute Plan d2 for 79yo M with CAD s/p PCI x2 Oct 2024, HTN, DM2, recurrent UTIs; presenting with fever, chills, cough, dyspnea, and weakness for 2-3d, admitted for sepsis due to PNA sepsis due to PNA - 12/28- ceftriaxone + azithromycin - trend PCT, follow BCx, MRSA swab, urinary antigens for Legionella and pneumococcus - lactate normal mild intermittent asthma with acute exacerbation - 12/29-01/03 prednisone; nebs CAD s/p recent PCI x2 - continue DAPT, statin, Imdur, metoprolol tartrate HTN - continue Imdur, metoprolol tartrate, diltiazem, furosemide DM2 - claire-dose lispro VTE prophylaxis - enoxaparin dispo - eventual home In my clinical judgment, the patient requires continued inpatient hospitalization for the following reasons: IV ABX Total time managing care of this patient today: 40 minutes. Quality Stroke Does the patient have a stroke diagnosis?: No VTE Prior VTE?: No VTE Risk Level:: Medical - moderate - high VTE Device Contraindication: Treatment Not Indicated VTE Drug Contraindication: N/A - Med Ordered
[2024-12-29 11:13] LABS: Glucose, Whole Blood 120 mg/dL (60-115)
[2024-12-29 14:39] LABS: MRSA Nasal PCR NEGATIVE (Negative); SA Nasal PCR NEGATIVE (Negative)
--- NOTE | 2024-12-29 16:14 | MHC.CM.PN ---
IMM delivered. Patient lives at home w/ . Functionally independent. Denies use of DME or services. PCP Adeel Fountain MD Reports he has an HCP naming his sister in law, Jennifer Cummings, as HCA. Copy and contact information requested. DP: Goal is home self care, does not anticipate the need for services. Son Delano to transport. Lives in [place] so will need a few hr notice. CM will continue to follow.
[2024-12-29 16:35] LABS: Glucose, Whole Blood 236 mg/dL (60-115)
[2024-12-29] MEDS: Insulin Lispro 100 UNIT/ML 3 ML VIAL SUBCUT ×2 (16:59→21:24)
[2024-12-29] MEDS: cefTRIAXone sodium 1 GM VIAL IVPUSH (17:43)
[2024-12-29] MEDS: Enoxaparin Sodium 40 MG/0.4 ML SYRINGE SUBCUT (19:43)
[2024-12-29] MEDS: Azithromycin 500 MG in 0.9 % Sodium Chloride 250 ML 125 MG IV (19:43)
[2024-12-29 20:39] LABS: Glucose, Whole Blood 264 mg/dL (60-115)
[2024-12-30 07:36] VITALS: BP 160/81; PULSE 63; RESP 16; TEMP 36.3; O2SAT 95
[2024-12-30 07:44] LABS: Glucose, Whole Blood 113 mg/dL (60-115)
[2024-12-30] MEDS: 0.9 % Sodium Chloride Flush 3 ML SYRINGE IVFLUSH ×2 (09:08→16:21)
[2024-12-30] MEDS: predniSONE 20 MG TABLET 40 MG PO (09:08)
[2024-12-30] MEDS: Ascorbic Acid 500 MG TABLET 1000 MG PO (09:09)
[2024-12-30] MEDS: Isosorbide Mononitrate 30 MG TAB.ER.24H PO (09:09)
[2024-12-30] MEDS: Metoprolol Tartrate 25 MG TABLET PO (09:09)
[2024-12-30] MEDS: dilTIAZem HCL CD 300 MG CAP.ER.24H PO (09:09)
[2024-12-30] MEDS: Loratadine 10 MG TABLET PO (09:09)
[2024-12-30] MEDS: Atorvastatin Calcium 20 MG TABLET PO (09:09)
[2024-12-30] MEDS: Clopidogrel Bisulfate 75 MG TABLET PO (09:09)
[2024-12-30] MEDS: Furosemide 20 MG TABLET PO (09:10)
[2024-12-30] MEDS: Aspirin Enteric Coated 81 MG TABLET.DR PO (09:10)
[2024-12-30 11:15] LABS: Glucose, Whole Blood 139 mg/dL (60-115)
--- NOTE | 2024-12-30 13:41 | HO.PM.IMPN ---
Subjective Subjective Date of Service: 12/30/24 Interval History: feels weak cough improved Review of Systems Review of Systems: Yes all other systems are reviewed and are negative Physical Exam Vital Signs: Vital Signs: Last Vital Signs Temp 97.3 F 12/30/24 07:36 Pulse 63 12/30/24 07:36 Resp 16 12/30/24 07:36 BP 160/81 H 12/30/24 07:36 Pulse Ox 95 12/30/24 07:36 O2 Del Method Room Air 12/30/24 07:36 O2 Flow Rate 2 12/29/24 15:31 Oxygen Flow Rate 2 12/28/24 15:40 BMI result Body Mass Index 36.2 Gen: in no acute distress HEENT: sclera anicteric, moist mucus membranes Neck: supple Lungs: diminished R base Heart: regular rate and rhythm, no murmurs Abd: soft, non-tender, non-distended Ext: no edema Skin: warm/well-perfused Neuro: alert and oriented x3, no focal findings Psych: appropriate affect Objective Data Active Medications Acetaminophen (Acetaminophen 325 Mg Tablet) 650 mg PO Q6H PRN PRN Reason: Pain, Mild 1-3,fever,headache Last Admin: 12/29/24 20:02 Dose: 650 mg Documented By: CASTILPradip Albuterol Sulfate (Albuterol Sulfate (0.083%) 2.5 Mg/3 Ml Vial.[place]) 2.5 mg INHALE Q6H PRN PRN Reason: Shortness of Breath/Wheezing Last Admin: 12/29/24 01:12 Dose: 2.5 mg Documented By: EMIL Ascorbic Acid (Ascorbic Acid 500 Mg Tablet) 1,000 mg PO DAILY [facility] Last Admin: 12/30/24 09:09 Dose: 1,000 mg Documented By: PAULETTE Aspirin (Aspirin Enteric Coated 81 Mg Tablet.) 81 mg PO DAILY [facility] Last Admin: 12/30/24 09:10 Dose: 81 mg Documented By: PAULETTE Atorvastatin Calcium (Atorvastatin Calcium 20 Mg Tablet) 20 mg PO DAILY [facility] Last Admin: 12/30/24 09:09 Dose: 20 mg Documented By: PAULETTE Calcium Carbonate (Calcium Carbonate 750 Mg Tab.Chew) 750 mg PO Q4H PRN PRN Reason: Heartburn Ceftriaxone Sodium (Ceftriaxone Sodium 1 Gm Vial) 1 gm IVPUSH Q24H [facility] Last Admin: 12/29/24 17:43 Dose: 1 gm Documented By: HORACE Clopidogrel Bisulfate (Clopidogrel Bisulfate 75 Mg Tablet) 75 mg PO DAILY [facility] Last Admin: 12/30/24 09:09 Dose: 75 mg Documented By: PAULETTE Dextrose (Dextrose 50 % 25 Gm/50 Ml Syringe) 25 gm IVPUSH Q15M PRN; Protocol PRN Reason: per Hypoglycemia Standing Ord. Diltiazem HCl (Diltiazem Hcl Cd 300 Mg Cap.Er.24h) 300 mg PO DAILY [facility]; Protocol Last Admin: 12/30/24 09:09 Dose: 300 mg Documented By: PAULETTE Enoxaparin Sodium (Enoxaparin Sodium 40 Mg/0.4 Ml Syringe) 40 mg SUBCUT Q24H [facility] Last Admin: 12/29/24 19:43 Dose: 40 mg Documented By: CASSY Furosemide (Furosemide 20 Mg Tablet) 20 mg PO DAILY [facility]; Protocol Last Admin: 12/30/24 09:10 Dose: 20 mg Documented By: PAULETTE Glucose (Glucose Gel 15 Gm Gel..Gram.) 15 gm PO Q15M PRN; Protocol PRN Reason: per Hypoglycemia Standing Ord. Azithromycin 500 mg/ Sodium (Chloride) 250 mls @ 125 mls/hr IV Q24H [facility] Last Infusion: 12/29/24 21:45 Dose: Infused Documented By: CASSY Insulin Human Lispro (Insulin Lispro 100 Unit/Ml 3 Ml Vial) 0 unit SUBCUT QIDACHS [facility]; Protocol Last Admin: 12/30/24 11:23 Dose: Not Given Documented By: PAULETTE Non-Admin Reason: No Insulin Coverage Isosorbide Mononitrate (Isosorbide Mononitrate 30 Mg Tab.Er.24h) 30 mg PO DAILY [facility]; Protocol Last Admin: 12/30/24 09:09 Dose: 30 mg Documented By: PAULETTE Loratadine (Loratadine 10 Mg Tablet) 10 mg PO DAILY [facility] Last Admin: 12/30/24 09:09 Dose: 10 mg Documented By: PAULETTE Magnesium Hydroxide (Milk Of Magnesia 30 Ml Oral.Susp) 30 ml PO DAILY PRN PRN Reason: Constipation Melatonin (Melatonin 3 Mg Tablet) 6 mg PO BEDTIME PRN PRN Reason: Insomnia Metoprolol Tartrate (Metoprolol Tartrate 25 Mg Tablet) 25 mg PO DAILY [facility]; Protocol Last Admin: 12/30/24 09:09 Dose: 25 mg Documented By: PAULETTE Ondansetron HCl (Ondansetron Hcl 4 Mg/2 Ml Vial) 4 mg IVPUSH Q8H PRN PRN Reason: Nausea and Vomiting Prednisone (Prednisone 20 Mg Tablet) 40 mg PO DAILY [facility] Stop: 01/02/25 09:01 Last Admin: 12/30/24 09:08 Dose: 40 mg Documented By: PAULETTE Sodium Chloride (0.9 % Sodium Chloride Flush 3 Ml Syringe) 3 ml IVFLUSH QSHIFT [facility] Last Admin: 12/30/24 09:08 Dose: 3 ml Documented By: PAULETTE Labs 12/29/24 06:16 12/29/24 06:16 Labs: Laboratory Results - last 24 hr 12/29/24 12/29/24 12/29/24 13:20 16:30 20:34 POC Glucose 236 H 264 H Nasal Screen MRSA (PCR) NEGATIVE Nasal S. aureus Screen NEGATIVE Nasal MRSA/S.aureus Interp SEE NOTE 12/30/24 12/30/24 07:39 11:11 POC Glucose 113 139 H Nasal Screen MRSA (PCR) Nasal S. aureus Screen Nasal MRSA/S.aureus Interp Microbiology Microbiology Results: Microbiology 12/28/24 17:55 Blood Culture - Preliminary Blood - Venous No growth after 24 hours. 12/28/24 17:55 Blood Culture - Preliminary Blood - Venous No growth after 24 hours. Assessment and Plan (1) Sepsis: Status: Acute Plan d3 for 79yo M with CAD s/p PCI x2 Oct 2024, HTN, DM2, recurrent UTIs; presenting with fever, chills, cough, dyspnea, and weakness for 2-3d, admitted for sepsis due to PNA sepsis due to PNA - 12/28- ceftriaxone + azithromycin - trend PCT, follow BCx, MRSA swab negative, urinary antigens for Legionella and pneumococcus pending - lactate normal mild intermittent asthma with acute exacerbation - 12/29-01/03 prednisone; nebs CAD s/p recent PCI x2 - continue DAPT, statin, Imdur, metoprolol tartrate HTN - continue Imdur, metoprolol tartrate, diltiazem, furosemide DM2 - claire-dose lispro VTE prophylaxis - enoxaparin dispo - PT consult In my clinical judgment, the patient requires continued inpatient hospitalization for the following reasons: IV ABX Total time managing care of this patient today: 40 minutes. Quality Stroke Does the patient have a stroke diagnosis?: No VTE Prior VTE?: No VTE Risk Level:: Medical - moderate - high VTE Device Contraindication: Treatment Not Indicated VTE Drug Contraindication: N/A - Med Ordered
--- NOTE | 2024-12-30 14:00 | P.DS_ITS ---
DS: Providers Provider Date of Service: 12/31/24 <Kaylynn Pate MD - Last Filed: 12/31/24 11:06> Date of admission: 12/28/24 21:00 <Wade Dunn MD - Last Filed: 12/30/24 14:02> Date of discharge: 12/31/24 <Kaylynn Pate MD - Last Filed: 12/31/24 11:06> Primary care physician: Unknown Physician <Wade Dunn MD - Last Filed: 12/30/24 14:02> DS: Diagnosis Discharge Diagnosis (1) Sepsis: Status: Acute <Wade Dunn MD - Last Filed: 12/30/24 14:02> (2) Pneumonia: Status: Acute <Wade Dunn MD - Last Filed: 12/30/24 14:02> (3) Mild intermittent asthma with (acute) exacerbation: Status: Acute <Wade Dunn MD - Last Filed: 12/30/24 14:02> DS: Summary Hospital Course Hospital Course: From the history and physical by the admitting hospitalist, CHEIKH Wells, 12/28/24: Pt is a 79-year-old male with a PMH significant for?CAD s/p stenting x2 in 10/2024, HTN, peripheral neuropathy, diet-controlled type 2 diabetes, and recurrent UTIs who presents to the ED with?fever, chills, cough, weakness, and SOB times 2-3 days. Cough has been mostly nonproductive. Also complains of lightheadedness, dizziness, myalgias, and simply feeling ?sicker than I have ever felt?. Pt recently experienced polyuria and dysuria, called PCP who started him on Macrobid for UTI which he has been taking for the past few days. Currently denies polyuria or dysuria. Denies chest pain/pressure, palpitations. No nausea, vomiting, abdominal pain. In the ED pt was febrile up to 103.4, tachycardic up to 105, tachypneic up to 28, and hypertensive up to 172/98. Labs were significant for leukocytosis 12.4, sodium 131, and initial troponin 53.8 with repeat flat at 57.7. Stable H&H. Renal function WNL. Hepatic function WNL. BNP 93. UA negative for UTI. Tested negative for flu, COVID, RSV. CXR showed right mid lung consolidation concerning for pneumonia or subsegmental atelectasis. Abdomen and pelvis CT found right middle and lower lobe consolidation concerning for pneumonia. EKG demonstrated normal sinus rhythm without evidence of significant ST elevations or depressions. Pt was treated with acetaminophen, IVF, and ceftriaxone. Pt will be admitted to the hospital for treatment and further evaluation of pneumonia with sepsis. 79yo M with CAD s/p PCI x2 Oct 2024, HTN, DM2, recurrent UTIs; presenting with fever, chills, cough, dyspnea, and weakness for 2-3d, admitted to the medical- surgical unit for sepsis due to PNA. Lactate normal. He was treated with ceftriaxone and azithromycin. He was also given prednisone for component of asthma exacerbations. Blood cultures negative, MRSA swab negative, urinary antigens for Legionella and pneumococcus pending. He was discharged on azithromycin and ceftriaxone and prednisone for 2 more days. <Wade Dunn MD - Last Filed: 12/30/24 14:02> Time Attestation Discharge Coordination Time (in mins): 40 <Kaylynn Pate MD - Last Filed: 12/31/24 11:06> Quality: Safe Use of Opioids Does Pt have an Active Cancer Diagnosis on the Problem List?: No <Kaylynn Pate MD - Last Filed: 12/31/24 11:06> Quality: Stroke Does the patient have a stroke diagnosis?: No <Kaylynn Pate MD - Last Filed: 12/31/24 11:06> Physical Exam Vital Signs: Vital Signs: Last Vital Signs Temp 97.3 F 12/30/24 07:36 Pulse 63 12/30/24 07:36 Resp 16 12/30/24 07:36 BP 160/81 H 12/30/24 07:36 Pulse Ox 95 12/30/24 07:36 O2 Del Method Room Air 12/30/24 07:36 O2 Flow Rate 2 12/29/24 15:31 Oxygen Flow Rate 2 12/28/24 15:40 BMI result Body Mass Index 36.2 <Wade Dunn MD - Last Filed: 12/30/24 14:02> Const: Other: Gen: in no acute distress HEENT: sclera anicteric, moist mucus membranes Neck: supple Lungs: diminished R base, no wheeze, no crackles Heart: regular rate and rhythm, no murmurs Abd: soft, non-tender, non-distended Ext: no edema Skin: warm/well-perfused Neuro: alert and oriented x3, no focal findings Psych: appropriate affect <Kaylynn Pate MD - Last Filed: 12/31/24 11:06> DS: Data Data Completed and Pending Labs on day of discharge: Laboratory Results - last 24 hr 12/29/24 12/29/24 12/29/24 13:20 16:30 20:34 POC Glucose 236 H 264 H Nasal Screen MRSA (PCR) NEGATIVE Nasal S. aureus Screen NEGATIVE Nasal MRSA/S.aureus Interp SEE NOTE 12/30/24 12/30/24 07:39 11:11 POC Glucose 113 139 H Nasal Screen MRSA (PCR) Nasal S. aureus Screen Nasal MRSA/S.aureus Interp Preliminary micro results at discharge 12/28/24 17:55 Blood Culture - Preliminary Blood - Venous No growth after 24 hours. 12/28/24 17:55 Blood Culture - Preliminary Blood - Venous No growth after 24 hours. <Wade Dunn MD - Last Filed: 12/30/24 14:02> Discharge Plan Discharge Anticipated Discharge Date/Time: 12/31/24 10:29 <Wade Dunn MD - Last Filed: 12/30/24 14:02> Patient Disposition: Home, Self-Care <Wade Dunn MD - Last Filed: 12/30/24 14:02> Discharge Diagnosis: sepsis due to pneumonia asthma exacerbation <Wade Dunn MD - Last Filed: 12/30/24 14:02> sepsis due to pneumonia asthma exacerbation <Kaylynn Pate MD - Last Filed: 12/31/24 11:06> Referrals: Physician,Unknown J [Primary Care Provider] - 1 Week <Wade Dunn MD - Last Filed: 12/30/24 14:02> Discharge Medications: New prednisone 20 mg Tablet 40 mg PO DAILY Qty: 4 0RF azithromycin 500 mg tablet 500 mg PO DAILY Qty: 2 0RF cefuroxime axetil 500 mg tablet 500 mg PO BID Qty: 4 0RF albuterol sulfate 90 mcg/actuation HFA aerosol inhaler 2 puff inhalation Q4-6H PRN (Reason: shortness of breath or wheezing) Qty: 8.5 0RF Rx Instructions: use with spacer device Continued isosorbide mononitrate 30 mg tablet extended release 24 hr 30 mg PO DAILY clopidogrel 75 mg tablet 75 mg PO DAILY diltiazem HCl 300 mg capsule,extended release 24hr 300 mg PO DAILY furosemide 20 mg tablet 20 mg PO DAILY rosuvastatin 5 mg tablet 5 mg PO DAILY metoprolol tartrate 25 mg tablet 25 mg PO DAILY ascorbic acid (vitamin C) 1,000 mg tablet 1,000 mg PO DAILY melatonin 10 mg Tablet 10 mg PO BEDTIME PRN (Reason: Sleep) cetirizine 10 mg tablet 10 mg PO DAILY aspirin [Ecotrin Low Strength] 81 mg Tablet,Delayed Release (Dr/Ec) 81 mg PO DAILY (DME) blood sugar diagnostic Strip See Rx Instructions Not Applicable BID Qty: 10 Rx Instructions: As directed <Wade Dunn MD - Last Filed: 12/30/24 14:02> Discharge Orders: Discharge Order (Routine); Ordered 12/31/24 Ordered By: Kaylynn Pate <Wade Dunn MD - Last Filed: 12/30/24 14:02> Diet: Diabetic diet <Wade Dunn MD - Last Filed: 12/30/24 14:02> Diabetic diet <Kaylynn Pate MD - Last Filed: 12/31/24 11:06> Activity on Discharge: As tolerated <Wade Dunn MD - Last Filed: 12/30/24 14:02> As tolerated <Kaylynn Pate MD - Last Filed: 12/31/24 11:06> Stand Alone Forms: Patient Portal Discharge page <Wade Dunn MD - Last Filed: 12/30/24 14:02> Print Language: Libyan <Wade Dunn MD - Last Filed: 12/30/24 14:02> Care Plan Goals: recovery from pneumonia <Wade Dunn MD - Last Filed: 12/30/24 14:02> Health Concerns: sepsis due to pneumonia asthma exacerbation <Wade Dunn MD - Last Filed: 12/30/24 14:02> Plan of Treatment: take antibiotics as prescribed: cefuroxime 500 mg twice daily for 2 days azithromycin 500 mg once daily for 2 days take steroids as prescribed: prednisone 40 mg once daily for 2 days use albuterol inhaler as needed for shortness of breath or wheeze please follow up with your primary care doctor within 1 week. Return to the hospital if you experience recurrent or worsening symptoms. repeat chest X-ray in 1 month <Wade Dunn MD - Last Filed: 12/30/24 14:02> Assessment: as above <Wade Dunn MD - Last Filed: 12/30/24 14:02>
[2024-12-30 15:53] VITALS: BP 157/75; PULSE 68; RESP 18; TEMP 36.3; O2SAT 95
[2024-12-30 16:14] LABS: Glucose, Whole Blood 228 mg/dL (60-115)
[2024-12-30] MEDS: Insulin Lispro 100 UNIT/ML 3 ML VIAL SUBCUT ×2 (16:21→22:24)
[2024-12-30] MEDS: cefTRIAXone sodium 1 GM VIAL IVPUSH (17:40)
[2024-12-30 17:57] LABS: Appearance Urine Clear; Color Urine Yellow; Glucose Urine UA 100 mg/dL (Negative); Leukocyte Esterase Urine Negative (Negative); Nitrite Urine Negative (Negative); PH 5.5 (5.0-9.0); Specific Gravity - Urine >= 1.030 (1.005-1.025); UMIC TRIGGER UA YES; Urine Blood Negative (Negative); Urine Ketones Trace mg/dL (Negative); Urine Protein 100 (2+) mg/dL (Neg-Trace)
[2024-12-30 18:01] LABS: Bacteria Urine None Seen (None Seen); Hyaline Casts Urine 0-2 /LPF (0-2); RBC Urine 0-2 /HPF (0-2); Squamous Epithelial Cell Urine 0-2 /HPF (0-2); WBC Urine 0-5 /HPF (0-5)
[2024-12-30] MEDS: Enoxaparin Sodium 40 MG/0.4 ML SYRINGE SUBCUT (20:28)
[2024-12-30] MEDS: Azithromycin 500 MG in 0.9 % Sodium Chloride 250 ML 125 MG IV (20:29)
[2024-12-30 20:35] LABS: Glucose, Whole Blood 243 mg/dL (60-115)
[2024-12-30] MEDS: Omeprazole 40 MG CAPSULE.DR PO (22:37)
[2024-12-30 23:15] VITALS: BP 165/81; PULSE 65; RESP 18; TEMP 36.7; O2SAT 97
[2024-12-31 05:40] LABS: Hematocrit 35.8 % (42.0-52.0); Hemoglobin 11.7 g/dl (14.0-18.0); Mean Corpuscular HGB Conc 32.7 g/dl (31.0-36.0); Mean Corpuscular Hemoglobin 28.3 pg (27.0-33.0); Mean Corpuscular Volume 86.7 fL (80.0-98.0); Mean Platelet Volume 10.4 fL (9.4-12.4); Platelet Count 183 X10*3/uL (160-400); Red Blood Count 4.13 X10*6/uL (4.60-5.80); Red Cell Distribution Width 14.6 % (11.0-16.0); White Blood Count 6.4 X10*3/uL (4.8-10.8)
[2024-12-31 06:14] LABS: Procalcitonin 0.23 ng/mL
[2024-12-31 07:28] LABS: Glucose, Whole Blood 123 mg/dL (60-115)
[2024-12-31] MEDS: Metoprolol Tartrate 25 MG TABLET PO (07:35)
[2024-12-31] MEDS: Isosorbide Mononitrate 30 MG TAB.ER.24H PO (07:35)
[2024-12-31] MEDS: dilTIAZem HCL CD 300 MG CAP.ER.24H PO (07:35)
[2024-12-31] MEDS: Loratadine 10 MG TABLET PO (07:35)
[2024-12-31] MEDS: Ascorbic Acid 500 MG TABLET 1000 MG PO (07:36)
[2024-12-31] MEDS: predniSONE 20 MG TABLET 40 MG PO (07:36)
[2024-12-31] MEDS: Clopidogrel Bisulfate 75 MG TABLET PO (07:36)
[2024-12-31] MEDS: Furosemide 20 MG TABLET PO (07:36)
[2024-12-31] MEDS: Aspirin Enteric Coated 81 MG TABLET.DR PO (07:36)
[2024-12-31] MEDS: Atorvastatin Calcium 20 MG TABLET PO (07:36)
[2024-12-31 08:00] VITALS: BP 194/88; PULSE 68; RESP 18; TEMP 36.1; O2SAT 97
[2024-12-31 08:14] VITALS: BP 157/76; PULSE 63; O2SAT 94
--- NOTE | 2024-12-31 10:57 | MHC.CM.PN ---
DP: PT HAS BEEN MEDICALLY CLEARED FOR DC HOME, NO SERVICES. PT'S WILL TRANSPORT HOME
[2024-12-31 11:10] VITALS: BP 144/74; PULSE 64; RESP 18; TEMP 36.1; O2SAT 96
[2025-01-02 01:29] LABS: Strep Pneumo Ag urine Not Detected (Not Detected)
[2025-01-02 07:53] LABS: Legionella Ag Urine Not Detected (Not Detected)
== END 2024-12-31 11:21 | disposition home or self-care (01) | DRG 194 ==
LOC: HO.ED 20:29 → HO.EDOVER 21:11 → HO.S3 12-29 07:42
PROVIDERS: Family Medicine; Physician Assistant Medical; Admitting Provider Student in an Organized Health Care Education/Training Program; Emergency Provider Emergency Medicine; PCP Internal Medicine; Visit Provider Hospitalist
DX: J18.9 Pneumonia, unspecified organism (principal); J45.21 Mild intermittent asthma with (acute) exacerbation; J98.11 Atelectasis; I10 Essential (primary) hypertension; I25.10 Atherosclerotic heart disease of native coronary artery without angina pectoris; E11.42 Type 2 diabetes mellitus with diabetic polyneuropathy; Z20.822 Contact with and (suspected) exposure to COVID-19; Z95.5 Presence of coronary angioplasty implant and graft; Z87.440 Personal history of urinary (tract) infections; Z87.891 Personal history of nicotine dependence; Z79.82 Long term (current) use of aspirin; Z79.02 Long term (current) use of antithrombotics/antiplatelets; Z79.899 Other long term (current) drug therapy
CPT/HCPCS: 0241U; 36415; 71045; 74176; 80048; 80053; 81001; 82248; 82947; 83605; 83735; 83880; 84145; 84484; 85025; 85027; 85610; 85730; 87040; 87086; 87449; 87640; 87641; 87899; 93005; 94640; 97161; 99285; J0131; J0456; J0696; J1650

== ENCOUNTER → 2024-12-28 16:08 | Outpatient (BNV) | payer MEDICARE, SELFPAY | PROVIDERS: Admitting Provider Student in an Organized Health Care Education/Training Program; Emergency Provider Emergency Medicine; Visit Provider Internal Medicine Cardiovascular Disease | DX: R06.02 Shortness of breath (principal) | CPT/HCPCS: 93010 ==

== ENCOUNTER → 2024-12-28 17:58 | Outpatient (BNV) | payer MEDICARE, SELFPAY | PROVIDERS: Emergency Provider Emergency Medicine; Visit Provider Specialist | DX: R53.1 Weakness (principal); R10.9 Unspecified abdominal pain | CPT/HCPCS: 71045; 74176 ==

== ENCOUNTER → 2024-12-28 21:00 | Outpatient (BNV) | payer MEDICARE, SELFPAY | PROVIDERS: Admitting Provider Student in an Organized Health Care Education/Training Program; Emergency Provider Emergency Medicine; Visit Provider Student in an Organized Health Care Education/Training Program | DX: A41.9 Sepsis, unspecified organism (principal); J18.9 Pneumonia, unspecified organism | CPT/HCPCS: 99223; 99232; 99239 ==

== ENCOUNTER 2025-02-27 13:25 | Outpatient (REF) | payer MEDICARE, SELFPAY ==
[2025-02-27 14:09] LABS: Hematocrit 38.9 % (42.0-52.0); Mean Corpuscular HGB Conc 33.4 g/dl (31.0-36.0); Mean Corpuscular Hemoglobin 28.7 pg (27.0-33.0); Mean Corpuscular Volume 85.9 fL (80.0-98.0); Mean Platelet Volume 9.8 fL (9.4-12.4); Platelet Count 231 X10*3/uL (160-400); Red Blood Count 4.53 X10*6/uL (4.60-5.80); White Blood Count 9.4 X10*3/uL (4.8-10.8)
[2025-02-27 14:22] LABS: Appearance Urine Cloudy; Color Urine Dark Yellow; Glucose Urine UA Negative (Negative); Leukocyte Esterase Urine Large (3+) (Negative); Nitrite Urine Negative (Negative); Specific Gravity - Urine 1.015 (1.005-1.025); UMIC TRIGGER UA YES; Urine Blood Trace (Negative); Urine Ketones Negative (Negative); Urine Protein 30 (1+) mg/dL (Neg-Trace)
[2025-02-27 14:24] LABS: Bacteria Urine None Seen (None Seen); Hyaline Casts Urine 0-2 /LPF (0-2); RBC Urine 0-2 /HPF (0-2); Squamous Epithelial Cell Urine 0-2 /HPF (0-2); WBC Urine >50 /HPF (0-5)
[2025-02-27 15:02] LABS: Prostate Specific Antigen 1.72 ng/mL (<0.05-4.0)
--- OUTSIDE RECORDS SUMMARY | 2025-02-27 15:35 | XMS_ITS | Data Portability ---
Author Organization [facility], [facility] Address [address] [place] [address] Care Team Providers Care Human Services Case Manager Name Role Phone ISHAKIMI Burden Primary Care Provider Assessment No assessment recorded. Plan of Treatment Reminders Order Date Submit Date Provider Last Modified By Organization Details Last Modified Time Details Appointments None recorded. Lab None recorded. Referral physical therapist referral - DIAGNOSIS: Right shoulder irreparable anterior-potts perior rotator cuff tearEvaluat e and Treat2-3x/w bishop paiute x 6 weeksGoal: - Decrease pain/swelli ng [...] importance of home program, 2x/day 2024 025 [email or web address] Not available 5 11:19:19 Procedures None recorded. Surgeries None recorded. Imaging XR, shoulder, 2 or more view - rm 2 2023 024 [facility], [address], [place], [address], 4 14:36:38 MRI, shoulder, w/o contrast 2023 024 [facility] ([facility] [address], [place], [address], 4 14:42:29 XR, hip, unilateral, 2 or 3 view - new eval left hip pain. room 115 2023 024 [email or web address] Not available 4 14:26:09 Medication Orders None recorded. Patient TargetsNo targets [...] LastModifiedBy Organization Detail LastModifiedTime 09/25/20 24 09/25/2024 XR, shoul jyoti, 2 or more view [email or web address] ?Encry pted=s hAaTro YD8dLq bEUv6g %2BXZw aYqtaq 0bqfl% 2Fg9IQ a4ajBk vP9nXo QUaueC m3YtLR FvZlgJ JJ8mAn HZtai3 5l5893 AC0Kqa HuFUaW nKiQtr MwF INTERFACE [facility] [address], [place], [address], 09/25/2024 14:36:38 09/25/20 24 09/25/2024 XR, camilo montes, 2 or more view [email or web address] ?Encry pted=s hAaTro YD8dLq bEUv6g %2BXZw aYqtaq 0bqfl% 2Fg9IQ a4ajBk vP9nXo QUaueC m3YtLR FvZlgJ JJ8mAn HZtai3 1v3959 AC0Kqa HuFUaW nKiQtr F INTERFACE [facility] [address], [place], [address], 09/25/2024 14:36:40 11/07/20 24 11/07/2024 MRI, camilo montes, w/o contr ast [facility] Access ion Number : [id number] Patiying t Name: Fabian Haskins Record Number : [id number] Date of : 1944 Date of Exam: 2023 Referr ing Physic marquez: [facility] [address] [place] [address] Exam: MR Should er (C-) CPT 99044 - Right Room Descri ption: [facility] Verio 3.0T MR Should er (C-) CPT 65056 CLINIC AL INDICA TION: Pain in right [...] ly Signed By: Will Steel rd, MD [facility] ([facility]) [address], [place], [address], 11/12/2024 10:08:26 Result Notes None recorded. Problems Name Problem SNOMED Code Status Onset Date Resolution Date Notes Provider Name and Address Organization Details Recorded Time No complaint s 548494046 Active Status: 'I'; Not Available [facility] 4 09:10:58 Knee joint prosthesi s present 417516891131 Active 2016 Problem Code: Z96.651; Problem Code Type: ICD-10; Status: 'A'; Not Available [facility] 4 10:58:26 Idiopathi c osteoarth ritis 265228372 Active 2015 Problem Code: M17.11; Problem Code Type: ICD-10; Status: 'A'; Not Available [facility] 4 10:58:26 Pain of left hip joint 192596238290 100 Active 2023 DANIELLE Vega'HEUREUErica [facility] 4 10:39:28 Problem Notes None recorded. Procedures Surgical History Date Name Laterality Status Provider Name and Address Organization Details Recorded Time 5 Sports Shoulder completed Oma Palm MD [address], [place], [address], [facility] 12/21/2024 10:22:45 4 Hip Kenalog 1cc Injection, L/R completed Dimitry Olivas PA-C [address], [place], [address], [facility] 02/07/2024 11:11:12 Imaging Results Imaging Date Name Status LastModified by Organiz ation Details LastModified Time 09/25/2024 XR, shoulder, 2 or more view completed [facility] [address], [place], [address], 09/25/2024 14:36:38 09/25/2024 XR, shoulder, 2 or more view completed INTER[facility] [address], [place], [address], 09/25/2024 14:36:40 11/07/2024 MRI, shoulder, w/o contrast completed [email or web address] [facility] ([facility]) [address], [place], [address], 11/12/2024 10:08:26 Procedure Notes None recorded. Medical [...] Updated DateTime 02/07/2024 175.26 cm 34.7 kg/m2 722494.21 g KAYLAUGUSTUS L'HEUREUX [facility] 02/07/2024 10:36:11 Date Recorded Body height Body mass index (BMI) Body weight Provider Name and Address Organization Details Last Updated DateTime 09/25/2024 175.26 cm 34.7 kg/m2 544905.21 g Bobby Benitez PA-C [address] [place] [address] [address], [place], [address], [facility] 09/25/2024 14:28:34 Date Recorded Body height Body mass index (BMI) Body weight Provider Name and Address Organization Details Last Updated DateTime 12/12/2024 175.26 cm 34.7 kg/m2 926095.21 g ESCOBAR EDOUARD [facility] 12/12/2024 08:26:20 Date Recorded Body height Body mass index (BMI) Body weight Provider Name and Address Organization Details Last Updated DateTime 12/21/2024 175.26 cm 34.7 kg/m2 870939.21 g ROMMEL INGRAM [facility] 12/21/2024 09:41:51 Social History Question Answer Notes LastModified by Organizat ion Details LastModified Time Tobacco Smoking Status Never Smoker KRYSTENIA L'HEUREUX [facility] 02/07/2024 10:38:13 What Is Your Level [...] History Nothing Reported. Medical History Condition Response Allergies/Hayfever N Coronary Artery Disease N Anxiety/Depression N Emphysema N Thyroid Problems N COPD N Pacemaker N Anemia N Kidney/Bladder Problems N Vascular Disease N Heart Trouble Y Heart Attack (TN) N Gastrointestinal Disease N Diabetes Y Autoimmune disease N Bleeding Disorder N Orthotics N Arthritis Y Seizures/Epilepsy N Blood Clot N AIDS/HIV N Congestive Heart Failure (CHF) N Acid Reflux (GERD) N Cancer N Stroke N Asthma N Peripheral Vascular Disease N Sleep Apnea Y Hepatitis N Heart Disease N Rheumatoid Arthritis N Arrhythmia N Pulmonary Embolism N Fibromyalgia N Hypertension Y Osteoporosis N Past Encounters Encounter ID Performer Location Encounter Start Date Encounter Closed Date Diagnosis/Indication Diagnosis SNOMED-CT Code Diagnosis ICD10 Code Diagnosis Note [id number] GORDO Spann [address] [place] [address] 02/07/2024 09:31:02 02/07/2024 11:29:52 Pain of left hip joint 4488563009 13358 M25.552 Trochanter ic bursitis of left hip 8553101967 18500 M70.62 [id number] GORDO Mckoy [address] [place] [address] 09/25/2024 14:23:26 10/22/2024 07:38:05 Pain of right shoulder joint 6446301696 6439551 M25.511 Traumatic right rotator cuff tear 2914405009 2073257 S46.011A [id number] GORDO Mckoy [address] [place] [address] 12/12/2024 08:21:14 01/08/2025 11:26:23 Non-traumatic partial tear of right rotator cuff 8231487440 695062 M75.836 [id number] MD EMELI [facility] [address] [place] [address] 12/21/2024 08:21:48 01/02/2025 11:19:18 Nontraumatic complete rupture of rotator cuff of right shoulder 8107829660 225708 M75.121 Health Concerns Section Related Observation LastModified by Organization Detai ls LastModified Time None Recorded Concern Status LastModified by Organization Details LastModified Time None Recorded Advance Directives Directive None Recorded Payers Encounter Date Sequence Insurance Name Policy Number Policy Lee Covered Member ID Lee Member ID Guarantor Name 02/07/2024 1 [employer] MED[employer] ADVANTAGE PLAN (MEDICARE REPLACEMENT HMO) [id number] 2 Fabian Moseley Divine [id number] Fabian Haskins 09/25/2024 1 [employer] MED[employer] ADVANTAGE PLAN (MEDICARE REPLACEMENT HMO) [id number] Fabian Haskins [id number] Fabian Haskins 12/12/2024 1 [employer]AGE PLAN (MEDICARE REPLACEMENT HMO) [id number] 2 Fabian Moseley Divine [id number] Fabian Pradip Divine 12/21/2024 1 [employer] ADVANTAGE PLAN (MEDICARE REPLACEMENT HMO) [id number] 2 Fabian Moseley Divine [id number] Fabian Pradip Divine Notes Date Note Type Note Provider Name and Address Organization Details Recorded Time 4 text/html I am seeing the patient today under the supervision of Dr. Haider who was available but who did not [...] raise.X-rays were ordered, obtained and reviewed at [facility]: AP and lateral of the Left [...] follow-up as needed. Dimitry Olivas PA-C [address] [facility] [address] [facility], [place], [address], [facility] 02/07/2024 11:24:16 4 text/html I am seeing the patient today under the supervision of Dr. Vegas who was available but who did not see the patient. 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. AP, Grashey, Outlet and Axillary views [...] his satisfaction. - Medical Practice speech recognition trench digger helper software was used to create portions of this document. An attempt at proofreading has been made to minimize errors. Please call for corrections. Bobby Benitez PA-C [address] [place] [address] [address] [facility], [place], [address], [facility] [place] 09/25/2024 15:21:45 5 text/html I am seeing [...] recently obtained and independently reviewed today at [facility]. Near full-thickness bursal surface tear involving [...] for further consultation. Bobby Benitez PA-C [address] [facility] [address], [place], [address], [facility] 12/12/2024 08:56:33 5 text/html [...] views of the right shoulder performed at [facility] 09/25/2024 reviewed by me and Ortho PACS during the visit today. These demonstrate good preservation of glenohumeral and AC joint spaces. no proximal migration of the humeral head. Humeral head centered on axillary view. No dystrophic calcium deposition. Right shoulder MRI performed at [facility] 11/07/2024 independently reviewed by me on Ortho [...] aches and pains, the patient can take nyrw-avt-fnqxfbk medication such as Tylenol or anti-inflammatories as needed; risks and benefits of medication discussed. Should call with more persistent pain. We will leave follow up open ended at this point. However should symptoms worsen or fail to improve to the patient's satisfaction, he is encouraged to give the office a call to be seen back for further evaluation and management. [facility] speech recognition trench digger helper software was used to create portions of this document. An attempt at proofreading has been made to minimize errors. Please call for corrections. Oma Palm MD [facility] [address], [place], [address], [facility] 12/21/2024 10:22:59
== END 2025-02-27 13:26 | disposition home or self-care (01) ==
LOC: HO.LAB 13:25
PROVIDERS: PCP Internal Medicine; Visit Provider Nurse Practitioner Family
DX: E29.1 Testicular hypofunction (principal); N39.0 Urinary tract infection, site not specified; Z12.5 Encounter for screening for malignant neoplasm of prostate
CPT/HCPCS: 36415; 81001; 84153; 85027; 87086; 87088; 87186

== ENCOUNTER 2025-06-11 08:18 | Outpatient (AMB) | payer MEDICARE, SELFPAY ==
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
--- OUTSIDE RECORDS SUMMARY | 2025-06-11 08:24 | XMS_ITS | Encounter Summary ---
Author Organization [facility] Address [address] [place] [address] Phone Care Team Providers Care Hand Salter Name Role Phone Adeel Fountain MD Primary Care Provider [phone] Encounter Details Date Type Department Care Team (Late st Contact Info) Description 08/05/2021 Procedure Pass [facility] Endoscopy Admitting Dept Virtual Department [address] [place] [address] Social History Tobacco Use Types Packs/Day Years Used Date Smoking Tobacco: Former Cigarettes Q uit: 1989 Smokeless Tobacco: Never Alcohol Use Standard Drinks/Week Comments Not Currently 4 (1 standard drink = 0.6 oz pur e alcohol) quit 2019 Sex and Gender Information Value Date Recorded Sex Assigned at Not on file Legal Sex Male 5:51 PM EST Gender Identity Not on file Sexual Orientation Not on file documented as of this encounter Plan of Treatment Not on file documented as of this encounter Visit Diagnoses Not on filedocumented in this encounter Care Teams Hand Salter Relationship Specialty Start Date End Date Adeel Fountain MD [address] [place] [address] PCP - General Internal Medicine 01/16/18 documented as of this encounter Additional Source Comments The information contained in this document represents components of the legal health record. It is not the complete legal health record.[facility]
--- OUTSIDE RECORDS SUMMARY | 2025-06-11 08:24 | XMS_ITS | Data Portability ---
Author Organization [place] - [facility], [facility] Address [address] [place] [address] Care Team Providers Care Clinical Scientist Name Role Phone KIMI DIAZ Primary Care Provider Assessment No assessment recorded. Plan of Treatment Reminders Order Date Submit Date Provider Last Modified By Organization Details Last Modified Time Details Appointments None recorded. Lab None recorded. Referral physical therapist referral - DIAGNOSIS: Right shoulder irreparable anterior-potts perior rotator cuff tear Evaluate and Treat 2-3x/week x 6 weeks Goal: - Decrease pain/swelli ng - Increase range of motion - Increase strength and/or endurance Recommended Modalities: - Heat prior to stretching - Ice at the end of the session - Additional modalities prn, but emphasis should be on manual therapy Precautions : WBAT, no motion restriction s Therapeutic Exercise: - Passive, active-assi st, active range of motion as tolerated, focusing on gradual progression over time - SUBMAXIMAL isometric rotator cuff strengtheni ng: light only, stop if any pain - Scapular stabilizer strengtheni ng (shrugs/ret ractions) WITHOUT resistance - Anterior deltoid strengtheni ng: see attached exercises Emphasize importance of home program, 2x/day 2024 025 [email or web address] Not available 5 11:19:19 Procedures None recorded. Surgeries None recorded. Imaging XR, shoulder, 2 or more view - rm 2 2023 024 [facility], [address], [place], [address], 4 14:36:38 MRI, shoulder, w/o contrast 2023 024 [facility] [address], [place], [address], 4 14:42:29 XR, hip, unilateral, 2 or 3 view - new eval left hip pain. room 115 2023 024 [email or web address] Not available 4 14:26:09 Medication Orders None [...] Abnormal Flag Note LastModifiedBy Organization Detail LastModifiedTime 09/25/2009/25/2024 XR, shoul jyoti, 2 or more view http:/ [email or web address] ?Encry pted=s hAaTro YD8dLq bEUv6g %2BXZw aYqtaq 0bqfl% 2Fg9IQ a4ajBk vP9nXo QUaueC m3YtLR FvZlgJ JJ8mAn HZtai3 9c7158 AC0Kqa HuFUaW nKiQtr MwF INTERFACE [facility] [address], [place], [address], 09/25/2024 14:36:38 09/25/20 24 09/25/2024 XR, camilo montes, 2 or more view [email or web address] ?Encry pted=s hAaTro YD8dLq bEUv6g %2BXZw aYqtaq 0bqfl% 2Fg9IQ a4ajBk vP9nXo QUaueC m3YtLR FvZlgJ JJ8mAn HZtai3 3r9224 AC0Kqa HuFUaW nKiQtr F INTERFACE [facility] [address], [place], [address], 09/25/2024 14:36:40 11/07/20 24 11/07/2024 MRI, camilo montes, w/o contr ast [facility] Access ion Number : [id number] Name: Fabian Haskins Record Number : [id number] Date of : 1944 Date of Exam: 2023 Referr ing Physic marquez: [facility] [address], [address] [place] [address] Exam: MR Should er (C-) CPT 01659 - Right Room Descri ption: [facility] Verio 3.0T MR Should er (C-) CPT 41710 CLINIC AL INDICA TION: Pain in right [...] ly Signed By: Will Steel rd, MD [email or web address] [facility] [address], [place], [address], 11/12/2024 10:08:26 Result Notes Documentation Provider Name and Address Organization Details Recorded Time Xr, Shoulder, 2 Or More View : [email or web address] Encrypted=qfSqXryGZ9eTcoJ Uv6g%5DMRtoPfrpo9lgao%2Fg 0YCy1lpEelF0dYqAYxuzOs5Yb SNAhIteUQM2qDjWBrmg16p301 9IB2NkjUaDSeLfLdQmmDjP Not Available [facility] 09/25/2024 14:36:39 Xr, Shoulder, 2 Or More View : [email or web address] Encrypted=ahRhCycKY8eFmaE Uv6g%1PPXlmMtjgx7llge%2Fg 8IFb3woCgiH9qVgJSceuMd2Qf BRJdYqcLGG2dPbPNbjf02d898 4PV7KfyLfSUoRhMlNxuQyO Not Available [facility] 09/25/2024 14:36:41 Mri, Shoulder, W/o Contrast : [facility] Accession Number: [id number] Patient Name: Fabian Haskins Date of : 1945 Date of Exam: 11-07-2024 Referring Physician: Bobby Benitez [facility] ([facility]) [address], [address] [place] [address] Exam: MR Shoulder (C-) CPT 31483 - Right Room Description: [facility] 3.0T MR Shoulder (C-) CPT 62881 CLINICAL INDICATION: Pain in right shoulder, Rule Out: rct? Pain in right shoulder, Rule Out: rct? Department Protocol TECHNIQUE: MRI of the right shoulder was performed without intravenous contrast. COMPARISON: None. FINDINGS: AC joint: Mild widening of the AC joint with accompanying effusion. Rotator cuff and biceps tendon: Near full-thickness bursal surface tear of the anterior supraspinatus footprint measuring 0.9 x 1.3 cm AP by transverse. Partial-thickness interstitial tear of the subscapularis footprint with underlying tendinosis allowing medial subluxation of the biceps tendon which also demonstrates partial-thickness longitudinal split tear at the junction of the intra-articular and extra articular segments. Interstitial ganglion cyst along the infraspinatus myotendinous junction measuring 1.5 x 2.3 cm. Teres minor tendon is intact. Normal rotator cuff muscle bulk. Glenoid labrum: Intermediate signal degeneration of the inferior labrum. No evidence of para labral cyst. Articular cartilage: Moderate diffuse thinning of the glenohumeral articular cartilage without focal defect. Glenohumeral joint effusion. Small loose bodies and/or synechiae within the subscapularis recess. Bone: Mild inferior glenohumeral marginal osteophyte formation. No evidence of fracture, malalignment or bone marrow contusion. IMPRESSION: Near full-thickness bursal surface tear of the anterior supraspinatus footprint Partial-thickness interstitial tear and tendinosis of the subscapularis tendon allowing partial medial subluxation of the biceps tendon which also demonstrates partial-thickness longitudinal split tear Interstitial ganglion cyst at the infraspinatus myotendinous junction Mild degenerative changes at the inferior aspect of the glenohumeral joint and inferior labrum Widening of the AC joint which can be seen in the setting of remote trauma Electronically Signed By: Will manjarrez [facility] 11/12/2024 10:08:26 Problems Name Problem SNOMED Code Status Onset Date Resolution Date Notes Provider Name and Address Organization Details Recorded Time No complaint s 223673648 Active Status: 'I'; Not Available [facility] 4 09:10:58 Idiopathi c osteoarth ritis 956710049 Active 2015 Problem Code: M17.11; Problem Code Type: ICD-10; Status: 'A'; Not Available [facility] 4 10:58:26 Knee joint prosthesi s present 662402604628 Active 2016 Problem Code: Z96.651; Problem Code Type: ICD-10; Status: 'A'; Not Available [facility] 4 10:58:26 Pain of left hip joint 576318913924 100 Active 2023 DANIELLE L'HEUREUErica manjarrez [facility] 4 10:39:28 Problem Notes None recorded. Procedures Surgical History Date Name Laterality Status Provider Name and Address Organization Details Recorded Time 5 Sports Shoulder completed Oma Palm MD [address] [place] [address], [address], [facility] 12/21/2024 10:22:45 4 Hip Kenalog 1cc Injection, L/R completed Dimitry Olivas PA-C [address], [place], [address], [facility] 02/07/2024 11:11:12 Imaging Results None recorded. Procedure [...] completed Not Available Not Available Not Available Trelehector Ellipta 200 mcg-62.5 mcg-25 mcg powder for [...] Updated DateTime 12/12/2024 175.26 cm 34.7 kg/m2 179457.21 g ESCOBAR EDOUARD [facility] 12/12/2024 08:26:20 Date Recorded Body height Body mass index (BMI) Body weight Provider Name and Address Organization Details Last Updated DateTime 12/21/2024 175.26 cm 34.7 kg/m2 044186.21 g ROMMEL INGRAM [facility] 12/21/2024 09:41:51 Date Recorded Body height Body mass index (BMI) Body weight Provider Name and Address Organization Details Last Updated DateTime 02/07/2024 175.26 cm 34.7 kg/m2 430413.21 g DANIELLE MARROQUIN [facility] 02/07/2024 10:36:11 Date Recorded Body height Body mass index (BMI) Body weight Provider Name and Address Organization Details Last Updated DateTime 09/25/2024 175.26 cm 34.7 kg/m2 467534.21 g Bobby Benitez PA-C [address] [place] [address] [address], [place], [address], [facility] 09/25/2024 14:28:34 Social History Question Answer Notes LastModified by Organizat ion Details LastModified Time Tobacco Smoking Status Never Smoker DANIELLE BernabeHEUREUErica manjarrez, [facility] 02/07/2024 10:38:13 What Is Your Relationship Status? Information not available 02/07/2024 Sex: Unknown Functional Status Question Answer Note LastModified by Organizat ion Details LastModified Time Do you use any illicit or recreational drugs? No Information not available 02/07/2024 Do you or have you ever used any other forms of tobacco or nicotine? No Information not available 02/07/2024 What is your level of alcohol consumption? None Information not available 02/07/2024 Mental Status None recorded. Family History Nothing [...] Kidney/Bladder Problems N Anemia N Heart Attack (DE) N Diabetes Y Bleeding Disorder N Seizures/Epilepsy N AIDS/HIV N Congestive Heart Failure (CHF) N Asthma N Peripheral Vascular Disease N Sleep Apnea Y Hepatitis N Heart Disease N Pulmonary Embolism N Hypertension Y Osteoporosis N Past Encounters Encounter ID Performer Location Encounter Start Date Encounter Closed Date Diagnosis/Indication Diagnosis SNOMED-CT Code Diagnosis ICD10 Code Diagnosis Note [id number] [facility] [address] [place] [address] 02/07/2024 09:31:02 02/07/2024 11:29:52 Pain of left hip joint 0595919052 25194 M25.552 Trochanter ic bursitis of left hip 5712734121 64684 [address]70.[id number] [place] [address] 09/25/2024 14:23:26 10/22/2024 07:38:05 Pain of right shoulder joint 2329985432 4176003 M25.511 Traumatic right rotator cuff tear 8106619854 3517823 S46.011A [id number] [facility] [address] [place] [address] 12/12/2024 08:21:14 01/08/2025 11:26:23 Nontraumatic partial rupture of right rotator cuff 0754431810 849962 M75.546 [id number] MD EMELI [facility] [address] [place] [address] 12/21/2024 08:21:48 01/02/2025 11:19:18 Nontraumatic complete rupture of rotator cuff of right shoulder 8375538136 908341 M75.121 Health Concerns Section Related Observation LastModified by Organization Detai ls LastModified Time None Recorded Concern Status LastModified by Organization Details LastModified Time None Recorded Advance Directives Directive None Recorded Payers Insurance Date Sequence Insurance Name Policy Number Policy Lee Covered Member ID Lee Member ID Guarantor Name 01/02/2025 1 [employer] - MEDICARE ADVANTAGE PLAN (MEDICARE REPLACEMENT HMO) [id number] 2 Fabian Haskins [id number] Fabian Haskins Notes Date Note Type Note [...] raise.X-rays were ordered, obtained and reviewed at [facility]: AP and lateral of the Left hip demonstrates a well maintained joint space in zone 1, 2, and 3. No cam lesion, pincer lesion, crossover sign. No evidence of AVN or acute fracture.ASSESSMENTSymptom atic trochanteric bursitis Left hip.KAIRE reviewed the findings with the patient, discussed [...] and follow-up as needed. Dimitry Olivas PA-C [address] [place] [address] [address], [place], [address], [facility] 02/07/2024 11:24:16 4 text/html I am seeing the patient today under the supervision of Dr. Vegas who was available but who did not see the patient. 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 AP, Grashey, Outlet and Axillary views show [...] his satisfaction. - Medical Practice speech recognition manufacturing millwright software was used to create portions of this document. An attempt at proofreading has been made to minimize errors. Please call for corrections. Bobby Benitez PA-C [address], [place], [address], [facility] 09/25/2024 15:21:45 5 text/html [...] recently obtained and independently reviewed today at [facility]. Near full-thickness bursal surface tear involving supraspinatus [...] plan for further consultation. Bobby Benitez PA-C [address] [place] [address] [address], [place], [address], [facility] 12/12/2024 08:56:33 5 text/html [...] noted with Neer maneuver. Passive external rotation 70 with negative ER lag. Internal rotation L1. [...] views of the right shoulder performed at [facility] 09/25/2024 reviewed by me and Ortho PACS during the visit today. These demonstrate good preservation of glenohumeral and AC joint spaces. no proximal migration of the humeral head. Humeral head centered on axillary view. No dystrophic calcium deposition. Right shoulder MRI performed at [facility] 11/07/2024 independently reviewed by me on [...] aches and pains, the patient can take kzjl-zhd-drodklo medication such as Tylenol or anti-inflammatories as needed; risks and benefits of medication discussed. Should call with more persistent pain. We will leave follow up open ended at this point. However should symptoms worsen or fail to improve to the patient's satisfaction, he is encouraged to give the office a call to be seen back for further evaluation and management. [facility] speech recognition manufacturing millwright software was used to create portions of this document. An attempt at proofreading has been made to minimize errors. Please call for corrections. Oma Palm MD [address] [place] [address] [address] [facility], [place], [address], [facility] 12/21/2024 10:22:59
--- NOTE | 2025-06-11 08:39 | MHC.OFFVIS ---
Intake Visit Reasons: 6m follow up/ Labs Intake Note: Patient presents today for 6m follow up/labs Urology Med: methenamine, vitamin c Antibiotic Allergy: None Blood Thinner: Aspirin, Clopidogrel PVR:16ml Teaching Associate Required: No Accompanied by: Self / Same As Patient Allergies morphine Allergy (Severe, Verified 06/11/25 09:11) agitation/severe skin symptoms oxycodone Allergy (Severe, Verified 06/11/25 09:11) agitation/severe skin symptoms Medication List - Last Reconciled 06/11/25 by IZA Dennis- albuterol sulfate 90 mcg/actuation 2 puffs inhalation Q4-6H PRN ascorbic acid (vitamin C) 1,000 mg PO DAILY 90 days aspirin (Ecotrin Low Strength) 81 mg PO DAILY blood sugar diagnostic As directed cetirizine 10 mg PO DAILY clopidogrel 75 mg PO DAILY diltiazem HCl CD 300 mg PO DAILY furosemide 20 mg PO DAILY isosorbide mononitrate ER 30 mg PO DAILY melatonin 10 mg PO BEDTIME PRN methenamine hippurate 1 g PO DAILY 90 days metoprolol tartrate 25 mg PO DAILY rosuvastatin 5 mg PO DAILY sulfamethoxazole-trimethoprim 800-160 mg (Bactrim DS) 1 tab PO BID 10 days HPI Comments Details: Fabian is a pleasant 80 year old male patient of Dr. Fountain. He has a past medical history of diabetes, peripheral neuropathy, sleep apnea, hypertension, hiatal hernia, diverticulosis, coronary artery disease, asthma, colitis, osteoarthritis, chronic prostatitis, and hypogonadism. He presents to the office today for follow-up of his hypogonadism, prostatitis, urinary tract infections, and lower urinary tract symptoms. In discussion with the patient today he discusses his ongoing cardiac issues since October of last year. He reports having had 2 cardiac stent placements and has been having ongoing issues with palpitations in his due to have stress test tomorrow at 07:30 at [facility]. She continues to follow-up with cardiology as planned. He does report having one UTI in February however since then has not had any UTIs and or UTI like symptoms since initiation of methenamine and vitamin-C. He discusses his upcoming trip to [place] July 03. He reports having stopped testosterone replacement for his hypogonadism as he felt this was causing him worsening gynecomastia. We did discuss further treatment options of hypogonadism and risks and benefits of these treatment options. He does not currently wish to undergo testosterone replacement at this time. Patient with a history of in office cystoscopy with Dr. Acuna 02/11 that noted open bladder neck with prior BPH procedure. He denies urinary urgency, urinary frequency, incontinence, nocturia, hematuria, dysuria, foul smelling urine, changes to urinary stream, flank pain, fever, and or chills. He is happy with his current voiding parameters. Recent PSA results reviewed with the patient today as noted and trended below: PSA: 09/10 0.3, 08/12 0.1, 02/10 0.1, 07/13 2.7, 04/13 1.2, 12/15 1.0, 03/15 1.7 PREVIOUS OFFICE NOTE: Prostatitis/CPPS: They present for evaluation of, chronic prostatitis. He is currently being treated with antibiotics, fluroquinolone. Current symptoms include nocturia Yes incomplete emptying No frequency Yes Symptoms have been present on and off for many years. Laboratory testing included 12/08 [facility] - E.Coli hamilton sensitive. Testing included 07/07 RBUS - good emptying, prostate 25 gm 05/09 RBUS - bilateral renal cysts but no stone. 02/09 E coli and Enterococcus Augmentin and fosfomycin sensitive - Bactrim and ciprofloxacin resistant - 11/12 E coli Bactrim and ciprofloxacin resistant Hypogonadism: Reivewed labs Feeling good with testosterone cream on testicles. He presents today for review lab work - wants testosterone cream renewal - E prescribed down to [place] will try scrotal application. Initial symptoms include erectile dysfunction Yes decreased libido Yes change in mood/depression Yes in muscle size/strength Yes increased fatigue/malaise Yes increased abdominal fat No tender breasts/gynecomastia No hair loss No osteopenia No The onset of symptoms has been gradual. Laboratory results 12/08 , testosterone 649, PSA 0.85 07/08 [facility] - PSA 0.85, T 229 12/09 T 217 PSA 0.7 02/06 T 686 05/09 T 170 12/10 PSA 0.4 T 200, 06/09 T 279 PSA 0.15, 09/10 T 244 PSA 0.15, 05/12 T 215 PSA 0.14, 02/10 T 398 P 0.14, 07/13 T 337 P 2.7 Current therapy includes gel/cream exogenous testosterone. Response to therapy has been improved. Therapeutic plan Continue therapy. [facility] Medical History Diabetes Peripheral neuropathy Sleep apnea HTN (hypertension) Hiatal hernia Diverticulosis CAD (coronary artery disease) Asthma Colitis Acute cystitis with hematuria Gross hematuria Rotator cuff impingement syndrome of left shoulder Primary osteoarthritis, left shoulder Poor urinary stream Benign prostatic hyperplasia with lower urinary tract symptoms Chronic prostatitis Hypogonadism in male Surgical History History of back surgery Hx of transurethral resection of prostate Hx of arthroscopy of right knee Hx of shoulder surgery History of esophagogastroduodenoscopy (EGD) H/O colonoscopy History of total knee replacement (TKR) Family History Father No problems noted. Mother No problems noted. Social History Household Members: Spouse Housing: House Are you a primary critical care physician to a significant other at home: No Do you presently have visiting nurse or other home services: No Alcohol intake: current Alcohol intake frequency: a few times a week Patient Tobacco Use Status: Former Tobacco user Tobacco use type: Cigarette service: No Review of Systems Const Reports as per [facility] Eyes Reports no additional complaints ENT Reports no additional complaints Card Reports as per [facility] Resp Reports as per [facility] GI Reports as per HPI Reports as per [facility] Musc Reports as per HPI Neuro Reports no additional complaints Psych Reports no additional complaints Endo Reports as per HPI Physical Exam Const General: cooperative, comfortable, no acute distress, well developed, alert and awake Orientation/consciousness: patient oriented x3 HEENT Head: Yes normal to inspection, Yes normocephalic and Yes atraumatic Ears: hearing grossly normal bilaterally Eyes General: appearance normal, both eyes and all related structures Neck Neck: Yes normal visual inspection and Yes trachea midline Chest Chest palpation & inspection: normal inspection of the chest Resp Effort & Inspection: normal respiratory effort and able to speak in complete sentences Cardio Rate: regular rate GI Inspection: Yes normal to inspection General: Yes no CVA tenderness Male General Exam: Yes normal external exam Penis: uncircumcised, erythematous and other (as noted in HPI) Meatus: meatus normal Scrotum: scrotum normal Testes: Testes normal Back/Spine/Pelvis Back: no CVA tenderness Skin General skin exam: no rashes or lesions noted Neuro General: patient oriented x3 Extrem General: Yes normal to inspection Psych Appearance: grossly normal and well kempt Mental Status: mental status grossly normal Speech and movement: Normal speech and movement present and Clear speech present Affect: normal affect Attitude: cooperative Thought process: Normal thought process present Thought content: Normal thought content present Insight: Fair insight present (Psych) Judgement: Fair judgement present (Psych) Assessment & Plan Assessment & Plan (1) Proteinuria: Code(s): R80.9 - Proteinuria, unspecified Category: Medical Qualifiers: Proteinuria type: other Qualified Code(s): R80.8 - Other proteinuria (2) Urinary urgency: Code(s): R39.15 - Urgency of urination Category: Medical (3) Urinary tract infection: Code(s): N39.0 - Urinary tract infection, site not specified Category: Medical (4) Prostatitis: Code(s): N41.9 - Inflammatory disease of prostate, unspecified Category: Medical Qualifiers: Prostatitis type: acute Qualified Code(s): N41.0 - Acute prostatitis (5) BPH w urinary obs/LUTS: Code(s): N40.1 - Benign prostatic hyperplasia with lower urinary tract symptoms; N13.8 - Other obstructive and reflux uropathy Category: Medical Plan In office urinalysis results reviewed with the patient today; as noted above. Continue to follow-up with nephrology regarding proteinuria. We discussed importance of following up as planned PVR 16 mL. Prescription provided for antibiotic therapy for upcoming trip; we discussed holding methenamine if on treatment for UTI. He currently denies any bothersome urinary issues or concerns. He reports be happy with current voiding parameters. Continue methenamine and vitamin-C as prescribed. He denies any UTI like symptoms. We discussed further treatment options of hypogonadism and risks and benefits of these treatment options He would like to continue with surveillance monitoring at this time. Recent PSA results reviewed with the patient today; as noted above. Follow-up in 6 months with PSA and PVR; or sooner with any issues, concerns, and or questions. Orders: Orders Prostate Specific Antigen 6 Months N13.8 - Other obstructive and reflux uropathy, N40.1 - Benign prostatic hyperplasia with lower urinary tract symptoms, R39.15 - Urgency of urination Medications: New sulfamethoxazole-trimethoprim 800-160 mg (Bactrim DS) hold methenamine while on treatment for UTI 1 tab PO BID 20 tabs 0RF 10 days Coding Level of Care Code Est Pt Level 4 (17465) Complex EM visit Add On G2211 Diagnoses Other proteinuria R80.8 Proteinuria type: other Urinary urgency R39.15 Urinary tract infection N39.0 Acute prostatitis N41.0 Prostatitis type: acute BPH w urinary obs/LUTS N40.1; N13.8
== END 2025-06-11 09:18 | disposition home or self-care (01) ==
LOC: HO.HUSH 08:18
PROVIDERS: PCP Internal Medicine; Visit Provider Nurse Practitioner Family
DX: R80.8 Other proteinuria (principal); R39.15 Urgency of urination; N39.0 Urinary tract infection, site not specified; N41.0 Acute prostatitis; N40.1 Benign prostatic hyperplasia with lower urinary tract symptoms; N13.8 Other obstructive and reflux uropathy; Z13.9 Encounter for screening, unspecified
CPT/HCPCS: 99214; G2211

== ENCOUNTER → 2025-06-11 08:18 | Outpatient (BNVA) | payer MEDICARE, SELFPAY | PROVIDERS: PCP Internal Medicine; Visit Provider Nurse Practitioner Family | DX: R39.15 Urgency of urination (principal); N39.0 Urinary tract infection, site not specified; N41.0 Acute prostatitis; N40.1 Benign prostatic hyperplasia with lower urinary tract symptoms; R80.8 Other proteinuria; N13.8 Other obstructive and reflux uropathy | CPT/HCPCS: 51798; 81003; 99212 ==

== ENCOUNTER 2025-06-18 13:26 | Outpatient (REF) | payer MEDICARE, SELFPAY ==
[2025-06-18 13:55] LABS: Appearance Urine Clear; Glucose Urine UA Negative (Negative); PH 6.5 (5.0-9.0); Specific Gravity - Urine <= 1.005 (1.005-1.025)
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
[2025-06-23 13:53] LABS: Testosterone, Free 23.7 pg/mL (30.0-135.0)
== END 2025-06-18 13:27 | disposition home or self-care (01) ==
LOC: HO.LAB 13:26
PROVIDERS: PCP Internal Medicine; Visit Provider Nurse Practitioner Family
DX: E29.1 Testicular hypofunction (principal); R39.15 Urgency of urination
CPT/HCPCS: 36415; 81003; 84402; 84403